=== PATIENT | male | born 1965 | race Caucasian/White ===

== ENCOUNTER → 2019-10-27 14:13 | Outpatient (BNVA) | payer OTHER, SELFPAY | PROVIDERS: Family Provider Family Medicine; PCP Family Medicine; Visit Provider Specialist | DX: F98.8 Other specified behavioral and emotional disorders with onset usually occurring in childhood and adolescence (principal); I10 Essential (primary) hypertension; Z86.73 Personal history of transient ischemic attack (TIA), and cerebral infarction without residual deficits | CPT/HCPCS: 99213 ==

== ENCOUNTER → 2020-01-26 11:24 | Outpatient (BNVA) | payer OTHER, SELFPAY | PROVIDERS: Family Provider Family Medicine; PCP Family Medicine; Visit Provider Specialist | DX: I63.9 Cerebral infarction, unspecified (principal); F98.8 Other specified behavioral and emotional disorders with onset usually occurring in childhood and adolescence; G45.0 Vertebro-basilar artery syndrome | CPT/HCPCS: 99214 ==

== ENCOUNTER → 2020-04-26 15:24 | Outpatient (BNVA) | payer OTHER, SELFPAY | PROVIDERS: Family Provider Family Medicine; PCP Family Medicine; Visit Provider Specialist | DX: G45.0 Vertebro-basilar artery syndrome (principal); I63.9 Cerebral infarction, unspecified; F98.8 Other specified behavioral and emotional disorders with onset usually occurring in childhood and adolescence | CPT/HCPCS: 99214 ==

== ENCOUNTER 2020-05-03 08:19 | Outpatient (CLI) | payer OTHER, SELFPAY ==
--- NOTE | 2020-05-03 08:30 | CT_ITS ---
WS: [id number] CTA HEAD AND NECK TECHNIQUE: Contrast enhanced CTA of the head and neck with coronal and sagittal reformatted images an d maximum intensity projection (MIP) images. NASCET criteria utilized. CLINICAL INFORMATION: CVA COMPARISON: None. DLP: 2333.[address] scans at [facility] use at least one of these dose optimization techniques: automat ed exposure control; mA and/or kV adjustment per patient size (includes targeted exams where dose is matched to clinical indication); or iterative reconstruction. FINDINGS: RIGHT: Right common carotid artery is patent. Mild stenosis right proximal ICA with moderate atheroma tous disease. Stenosis measures approximately 30%. Right ICA is patent to the skull base. LEFT: Left common carotid artery is patent. No significant left ICA stenosis. Left ICA is patent to t he skull base. INTRACRANIAL CTA: Left dominant vertebral artery. Tiny hypoplastic right vertebral artery is occluded proximally. This reconstitutes in the mid and distal aspect with a tiny amount of flow. Basilar artery is patent. Norm al vascularity to the CONTRACT MANAGER territory bilaterally. Patent right posterior communicating artery. Both ICAs are patent at the skull base. Normal vascularity to the RADHA and MCA territories bilaterally . No evidence of high-grade proximal stenosis or aneurysm. Patent anterior communicating artery. No evidence of intracranial hemorrhage or mass effect. Mild small vessel changes. Mild parenchymal vo lume loss. Chronic infarcts in the right cerebellum. A few prominent cervical chain lymph nodes likel y reactive. Prominent 11 mm paratracheal lymph node in the mediastinum. A few hazy opacities in the lung apices. Findings can be further evaluated chest CT. CT/CT angio headneck* [id number]/95534 IMPRESSION: 1. Stenosis right proximal ICA measuring 30%. No significant left ICA stenosis .. Both ICAs are patent to the skull base. 2. Left dominant vertebral artery. Tiny hypoplastic right vertebral artery is occluded proximally with a small amount of flow in the mid and distal aspects. 3. Normal intracranial CTA. No evidence of flow-limiting stenosis or aneurysm. 4. Chronic infarcts right cerebellum. 5. Prominent 11 mm paratracheal lymph node in the mediastinum. A few hazy opac ities in the lung apices. Findings can be further evaluated chest CT.
[2020-05-03] MEDS: iohexol 350 mg/mL 100 mL Btl IV (09:05)
== END 2020-05-03 08:20 | disposition home or self-care (01) ==
LOC: RADWPI 08:23
PROVIDERS: Family Provider Family Medicine; PCP Family Medicine; Visit Provider Specialist
DX: I63.9 Cerebral infarction, unspecified (principal)
CPT/HCPCS: 70496; 70498; Q9967

== ENCOUNTER → 2020-10-20 19:30 | Outpatient (BNVA) | payer OTHER, SELFPAY | PROVIDERS: Family Provider Family Medicine; PCP Family Medicine; Visit Provider Nurse Practitioner | DX: M79.10 Myalgia, unspecified site (principal); W57.XXXA Bitten or stung by nonvenomous insect and other nonvenomous arthropods, initial encounter; M79.601 Pain in right arm; Z68.31 Body mass index [BMI] 31.0-31.9, adult | CPT/HCPCS: 86618; 86666; 86757 ==

== ENCOUNTER → 2020-10-25 10:38 | Outpatient (BNVA) | payer OTHER, SELFPAY | PROVIDERS: Family Provider Family Medicine; PCP Family Medicine; Visit Provider Specialist | DX: G45.0 Vertebro-basilar artery syndrome (principal); F98.8 Other specified behavioral and emotional disorders with onset usually occurring in childhood and adolescence | CPT/HCPCS: 99214 ==

== ENCOUNTER → 2021-01-23 11:17 | Outpatient (BNVA) | payer OTHER, SELFPAY | PROVIDERS: Family Provider Family Medicine; PCP Family Medicine; Visit Provider Specialist | DX: F98.8 Other specified behavioral and emotional disorders with onset usually occurring in childhood and adolescence (principal); I69.398 Other sequelae of cerebral infarction | CPT/HCPCS: 99214 ==

== ENCOUNTER 2021-03-06 15:36 | Outpatient (CLI) | payer OTHER, SELFPAY ==
--- NOTE | 2021-03-07 06:44 | ONC FU_ITS ---
Dr. Souza Patient Follow-Up Note Patient: Ernie Plasencia Unit #: [id number]: 1965 Dicatated By: Mateusz Souza M.D.Date of Visit:Mar 06, 2021 Onc Med Follow-up/Prog Note Chief Complaint: Anemia. 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 His history is very interesting in that he had a lifelong history of anemia with hemoglobin previously stable in the range of 9-10 g. He always had some degree of fatigue with this, and he described feeling as if he was always running on a half a tank. He also reported having some difficulty with concentration, and he complained that his muscles were tight and always felt tired. Nonetheless, he had been able to function well with his hemoglobin in that range. 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 He had undergone evaluation for the anemia when he was in the [employer]. They did not establish a specific diagnosis. He was admitted to [facility] [place] in July 2013 when his hemoglobin had dropped to 5.5 g with white blood cell count 4800 and platelet count 144,000. The red cell indices were macrocytic. The uncorrected reticulocyte count was 12.7%. The haptoglobin was less than 7.8 mg/dL and the LDH was significantly elevated at 2594/241 units per liter. The total bilirubin was elevated at 4.1 mg/dL. The direct antibody test was negative. B12 and folate levels were normal. Ferritin was normal at 67 ng/mL. He was transfused a total of 4 units of packed blood cells. His hemoglobin within 2 days had increased to 9.1 g/dL, and it then remained stable with no further intervention. His subsequent evaluation included a normal G6PD level at 16.3 units per gram hemoglobin and a normal osmotic fragility test. The pyruvate kinase level, though, was low at less than 2.0 units per gram hemoglobin, normal range 9.0-22.0. With the presumptive diagnosis of pyruvate kinase deficiency I had him continue folate supplementation. He remained stable until January 2014 when his hemoglobin abruptly dropped back down to 5.7 g, and he then became transfusion dependent. He had a second opinion evaluation at [facility], and he underwent bone marrow aspiration/biopsy on 01/17/2014. The marrow showed 100% cellularity with erythroid hyperplasia. There was mild red blood cell dyspoiesis. Iron stores were noted to be absent. There were no other significant abnormalities noted. The chromosome studies were normal. He was then evaluated at the [facility], and they did recommend splenectomy, which was done laparoscopically in July 2014. His blood counts subsequently improved, and he then remained transfusion independent. His medical history is otherwise significant for a hospitalization with suspected brainstem stroke in November 2012. At that time he was found to have type 2 diabetes and hyperlipidemia. He has obstructive sleep apnea, and he also has a history of gout. I had last seen him in November 2014. At that point he was having left knee pain and he ultimately required an open surgical procedure on the left knee. 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 He is a non-smoker. I asked him to return for a follow-up visit because there is new medication in development for PK deficiency, and it is currently under review at the FDA. He has been feeling pretty good generally. He has good tolerance for normal activities, but he really does not do anything strenuous now. His ECOG score is 0. He has good appetite. He has no fever or night sweats. He does have heat intolerance, which includes weakness/fatigue, lightheadedness, and blurry vision when exposed to hot temperatures. He has very occasional sore throat. He does not complain of cough. He is not short of breath with normal activities. He does not complain of chest pain. He has no GI or complaints. He currently is not having any significant joint or bone pain. He is taking allopurinol prophylactically for his gout. He does not complain of headache. He sometimes has dizziness. He occasionally has some numbness in his fingers. He still has some numbness on the entire left side of his body following the stroke in 2012. Medications: Allopurinol (300 mg) Tablet Oral b.i.d., Invokana 1 (300 mg) Tablet Oral daily, Losartan Potassium (50 mg) Tablet Oral daily, Ozempic (0.25 or 0.5 MG/DOSE) Subcutaneous Allergies: No Known Allergies. Vital Signs: Performed on Mar 06, 2021 16:25 Height - 71.00 in Weight - 247 lbs (LOW) BSA - 2.31 sq.m BMI - 34.45 (HIGH) Temperature - 98.6 F Pulse - 98 /min Respiration - 18 /min BP - 136/84 mm(hg) O2 Sat - 100 % Pain - 0 Fatigue - 7 Physical Examination: Constitutional - He looks pretty good generally, Eyes - Sclerae nonicteric. Conjunctivae clear, ENMT - No lesions noted in the oral cavity, Hematologic/Lymphatic - No cervical, clavicular, or axillary adenopathy, Respiratory - Lungs are clear with good air movement bilaterally, Cardiovascular - Heart rhythm is regular. There is no murmur, gallop, or rub noted, Abdomen - Soft. Liver is not enlarged. There is no abdominal mass or ascites noted and there is no inguinal adenopathy, Extremities - No edema, Neurologic - No focal neurologic deficits noted. Lab/Imaging: His laboratory studies from 03/01/2021 included CBC showing hemoglobin 10.0 g with hematocrit 31.6 %. The red cell indices were macrocytic with MCV 107.1 and MCH 33.9. The white blood cell count was 15,900 and the platelet count was 462,000. Comprehensive metabolic profile showed normal renal function with BUN 22 and creatinine 1.07 mg/dL. His total bilirubin was borderline high at 1.2 mg/dL. The alkaline phosphatase and the other liver enzymes were normal. His hemoglobin A1c level was 7.7%. Problem List: 1. 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 He has not had genetic testing. 2. 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 3. Hyperlipidemia. 4. Type 2 diabetes. 5. Gout. 6. He has a history of brainstem stroke in 2012. 7. 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 Problems Addressed with this Encounter and Plan: Patient with pyruvate kinase deficiency. He had lifelong nonimmune hemolytic anemia, ultimtatey determined to be due to pyruvate kinase deficiency based on a low pyruvate kinase level at less than 2.0 units per gram hemoglobin, normal range 9.0-22.0. He did not have genetic testing. He had become transfusion dependent in July 2013, and he underwent laparoscopic splenectomy in July 2014. He has been stable clinically since the splenectomy, maintaining hemoglobin in the range of 10 to 12 g. He has good tolerance for normal activities. Through his own research he has been aware of the medication which has been under development for PK deficiency (mitapivat). It currently is under review at the FDA. I am going to do some preliminary investigation regarding his eligibility for treatment and potential availability of the medication, even in the context of a clinical trial. In the meantime, he is reminded to continue his folate supplementation. I did recommend that he avoid any extra iron supplementation. Signed By: Mateusz Souza M.D. <<Signature on File>>
== END 2021-03-06 15:37 | disposition home or self-care (01) ==
LOC: ONCMED 15:42
PROVIDERS: PCP Family Medicine; Visit Provider Internal Medicine Medical Oncology
DX: D55.2 Anemia due to disorders of glycolytic enzymes (principal); E78.5 Hyperlipidemia, unspecified; E11.9 Type 2 diabetes mellitus without complications; M10.9 Gout, unspecified; Z86.73 Personal history of transient ischemic attack (TIA), and cerebral infarction without residual deficits; Z96.642 Presence of left artificial hip joint; Z79.899 Other long term (current) drug therapy
CPT/HCPCS: 99214

== ENCOUNTER 2021-07-04 15:18 | Outpatient (CLI) | payer OTHER, SELFPAY | END 2021-07-04 15:19 | disposition home or self-care (01) | LOC: ONCMED 15:21 | PROVIDERS: PCP Family Medicine; Visit Provider Internal Medicine Medical Oncology | DX: E74.4 Disorders of pyruvate metabolism and gluconeogenesis (principal); E78.5 Hyperlipidemia, unspecified; E11.9 Type 2 diabetes mellitus without complications; M10.9 Gout, unspecified; Z86.73 Personal history of transient ischemic attack (TIA), and cerebral infarction without residual deficits; Z96.642 Presence of left artificial hip joint; Z90.81 Acquired absence of spleen; Z79.899 Other long term (current) drug therapy | CPT/HCPCS: 99211 ==

== ENCOUNTER → 2021-10-16 16:19 | Outpatient (BNVA) | payer OTHER, SELFPAY | PROVIDERS: PCP Family Medicine; Visit Provider Internal Medicine | DX: N52.1 Erectile dysfunction due to diseases classified elsewhere (principal); D55.21 Anemia due to pyruvate kinase deficiency; E11.9 Type 2 diabetes mellitus without complications | CPT/HCPCS: 80053; 83001; 83002; 84146; 84403; 85025; G0103 ==

== ENCOUNTER 2022-01-01 14:00 | Oncology outpatient (recurring) (ONCR) | payer OTHER, SELFPAY ==
[2021-12-18 16:01] LABS: Basophils # 0.1 10^3/uL (0.0-0.1); Basophils % 0.7 %; Eosinophils # 0.4 10^3/uL (0.0-0.8); Eosinophils % 2.2 %; Hematocrit 32.4 % (42.0-52.0); Hemoglobin 10.2 g/dL (11.7-16.6); Lymphocytes # 3.3 10^3/uL (0.8-4.8); Lymphocytes % 19.2 %; Mean Corpuscular HGB Conc 31.5 g/dL (30.0-36.0); Mean Corpuscular Hemoglobin 34.3 pg (28.0-34.0); Mean Corpuscular Volume 109.1 fl (80-94); Mean Platelet Volume 12.7 fL (7.4-10.4); Monocytes # 2.1 10^3/uL (0.2-0.9); Monocytes % 12.4 %; Neutrophils # 10.99 10^3/uL (1.8-7.7); Nucleated Red Blood Cells # 0.2 /100WBC; Nucleated Red Blood Cells % 1.2 %; Platelet Count 456 10^3/cmm (130-400); Red Blood Count 2.97 10^6/uL (4.1-5.3); White Blood Count 17.2 10^3/uL (4.0-10.0)
[2021-12-18 18:24] LABS: Alanine Aminotransferase 25 U/L (0-41); Albumin Level 4.4 g/dL (3.5-5.2); Alkaline Phosphatase 99 IU/L (40-130); Anion Gap 16.8 (5-19); Aspartate Amino Transferase 21 U/L (0-40); Blood Urea Nitrogen 36 mg/dL (6-20); Calcium 10.1 mg/dL (8.5-10.5); Carbon Dioxide 26 mmol/L (22-29); Chloride 99 mmol/L (98-107); Globulin 3.1 g/dL (1.3-4.6); Glomerular Filtration Rate 45.3 mL/min (90-130); Glucose 244 mg/dL (65-115); Osmolality Calculated 300 mOsm/kg (285-295); Potassium 4.8 mmol/L (3.5-5.1); Sodium 137 mmol/L (136-145); Total Bilirubin 1.2 mg/dL (0.15-1.2); Total Protein 7.5 g/dL (6.6-8.7)
== END 2022-01-01 23:59 | disposition home or self-care (01) ==
PROVIDERS: PCP Family Medicine; Visit Provider Nurse Practitioner Family
DX: Z53.9 Procedure and treatment not carried out, unspecified reason (principal)
CPT/HCPCS: 80053; 84153; 85025

== ENCOUNTER 2022-01-15 11:30 | Oncology outpatient (recurring) (ONCR) | payer OTHER, SELFPAY ==
[2022-01-02 10:25] LABS: Basophils # 0.1 10^3/uL (0.0-0.1); Basophils % 0.8 %; Eosinophils # 0.4 10^3/uL (0.0-0.8); Eosinophils % 2.7 %; Hematocrit 31.9 % (42.0-52.0); Hemoglobin 10.1 g/dL (11.7-16.6); Lymphocytes # 4.1 10^3/uL (0.8-4.8); Lymphocytes % 28.7 %; Mean Corpuscular HGB Conc 31.7 g/dL (30.0-36.0); Mean Corpuscular Hemoglobin 34.5 pg (28.0-34.0); Mean Corpuscular Volume 108.9 fl (80-94); Mean Platelet Volume 11.7 fL (7.4-10.4); Monocytes # 1.6 10^3/uL (0.2-0.9); Monocytes % 11.4 %; Neutrophils # 7.83 10^3/uL (1.8-7.7); Neutrophils % 54.9 %; Nucleated Red Blood Cells # 0.3 /100WBC; Nucleated Red Blood Cells % 1.9 %; Platelet Count 340 10^3/cmm (130-400); Red Blood Count 2.93 10^6/uL (4.1-5.3); Red Cell Distribution Width 15.6 % (12.1-15.1); White Blood Count 14.3 10^3/uL (4.0-10.0)
[2022-01-02 10:47] LABS: Alanine Aminotransferase 33 U/L (0-41); Albumin Level 4.4 g/dL (3.5-5.2); Alkaline Phosphatase 103 IU/L (40-130); Anion Gap 16.6 (5-19); Aspartate Amino Transferase 23 U/L (0-40); Blood Urea Nitrogen 31 mg/dL (6-20); Calcium 9.6 mg/dL (8.5-10.5); Carbon Dioxide 21 mmol/L (22-29); Chloride 102 mmol/L (98-107); Glomerular Filtration Rate 52.8 mL/min (90-130); Glucose 271 mg/dL (65-115); Osmolality Calculated 296 mOsm/kg (285-295); Potassium 4.6 mmol/L (3.5-5.1); Sodium 135 mmol/L (136-145); Total Bilirubin 1.2 mg/dL (0.15-1.2); Total Protein 7.4 g/dL (6.6-8.7)
[2022-01-02 10:54] LABS: Slide Review Slide Review Perform
[2022-01-15 11:58] LABS: Basophils # 0.1 10^3/uL (0.0-0.1); Basophils % 0.8 %; Eosinophils # 0.3 10^3/uL (0.0-0.8); Eosinophils % 1.8 %; Hemoglobin 11.2 g/dL (11.7-16.6); Lymphocytes # 3.2 10^3/uL (0.8-4.8); Lymphocytes % 21.5 %; Mean Corpuscular HGB Conc 32.9 g/dL (30.0-36.0); Mean Corpuscular Hemoglobin 34.7 pg (28.0-34.0); Mean Corpuscular Volume 105.3 fl (80-94); Mean Platelet Volume 11.9 fL (7.4-10.4); Monocytes # 1.7 10^3/uL (0.2-0.9); Monocytes % 11.4 %; Neutrophils # 9.52 10^3/uL (1.8-7.7); Neutrophils % 63.3 %; Nucleated Red Blood Cells # 0.3 /100WBC; Platelet Count 501 10^3/cmm (130-400); Red Blood Count 3.23 10^6/uL (4.1-5.3); Red Cell Distribution Width 15.5 % (12.1-15.1)
== END 2022-01-31 23:59 | disposition home or self-care (01) ==
PROVIDERS: PCP Family Medicine; Visit Provider Nurse Practitioner Family
DX: D55.21 Anemia due to pyruvate kinase deficiency (principal)
CPT/HCPCS: 36415; 80053; 85025; 99214

== ENCOUNTER 2022-02-21 16:01 | Oncology outpatient (recurring) (ONCR) | payer OTHER, SELFPAY ==
[2022-02-14 13:04] LABS: Basophils # 0.1 10^3/uL (0.0-0.1); Basophils % 0.8 %; Eosinophils # 0.2 10^3/uL (0.0-0.8); Eosinophils % 1.7 %; Hematocrit 33.6 % (42.0-52.0); Hemoglobin 10.4 g/dL (11.7-16.6); Lymphocytes % 21.6 %; Mean Corpuscular Hemoglobin 34.3 pg (28.0-34.0); Mean Corpuscular Volume 110.9 fl (80-94); Mean Platelet Volume 12.5 fL (7.4-10.4); Monocytes # 1.7 10^3/uL (0.2-0.9); Monocytes % 12.6 %; Neutrophils # 8.52 10^3/uL (1.8-7.7); Neutrophils % 61.8 %; Nucleated Red Blood Cells # 0.3 /100WBC; Nucleated Red Blood Cells % 2.2 %; Platelet Count 361 10^3/cmm (130-400); Red Blood Count 3.03 10^6/uL (4.1-5.3); White Blood Count 13.8 10^3/uL (4.0-10.0)
[2022-02-14 13:05] LABS: Reticulocyte % 23.7 % (0.5-2.0)
[2022-02-14 13:31] LABS: Alanine Aminotransferase 41 U/L (0-41); Albumin Level 4.3 g/dL (3.5-5.2); Alkaline Phosphatase 99 IU/L (40-130); Aspartate Amino Transferase 18 U/L (0-40); Blood Urea Nitrogen 33 mg/dL (6-20); Calcium 9.5 mg/dL (8.5-10.5); Carbon Dioxide 24 mmol/L (22-29); Chloride 96 mmol/L (98-107); Globulin 2.7 g/dL (1.3-4.6); Glomerular Filtration Rate 45.3 mL/min (90-130); Glucose 434 mg/dL (65-115); Lactate Dehydrogenase 176 U/L (135-225); Osmolality Calculated 300 mOsm/kg (285-295); Sodium 132 mmol/L (136-145); Total Bilirubin 1.1 mg/dL (0.15-1.2)
== END 2022-03-03 23:59 | disposition home or self-care (01) ==
PROVIDERS: Internal Medicine Medical Oncology; PCP Family Medicine; Visit Provider Nurse Practitioner Family
DX: D55.21 Anemia due to pyruvate kinase deficiency (principal)
CPT/HCPCS: 36415; 80053; 83615; 85025; 85045

== ENCOUNTER 2022-03-20 11:30 | Oncology outpatient (recurring) (ONCR) | payer OTHER, SELFPAY ==
[2022-03-07 15:10] LABS: Basophils # 0.1 10^3/uL (0.0-0.1); Basophils % 0.7 %; Eosinophils # 0.2 10^3/uL (0.0-0.8); Eosinophils % 1.6 %; Hematocrit 34.4 % (42.0-52.0); Lymphocytes % 24.9 %; Mean Corpuscular Hemoglobin 34.5 pg (28.0-34.0); Mean Corpuscular Volume 107.8 fl (80-94); Mean Platelet Volume 12.2 fL (7.4-10.4); Monocytes # 1.7 10^3/uL (0.2-0.9); Monocytes % 13.8 %; Neutrophils % 57.8 %; Nucleated Red Blood Cells # 0.2 /100WBC; Nucleated Red Blood Cells % 1.8 %; Platelet Count 369 10^3/cmm (130-400); Red Blood Count 3.19 10^6/uL (4.1-5.3); Red Cell Distribution Width 14.6 % (12.1-15.1); White Blood Count 12.1 10^3/uL (4.0-10.0)
[2022-03-07 15:29] LABS: Slide Review Slide Review Perform
== END 2022-04-03 23:59 | disposition home or self-care (01) ==
PROVIDERS: Internal Medicine Medical Oncology; PCP Family Medicine; Visit Provider Nurse Practitioner Family
DX: D55.21 Anemia due to pyruvate kinase deficiency (principal)
CPT/HCPCS: 85025

== ENCOUNTER 2022-04-18 09:52 | Oncology outpatient (recurring) (ONCR) | payer OTHER, SELFPAY ==
[2022-04-12 10:18] LABS: Basophils # 0.1 10^3/uL (0.0-0.1); Basophils % 0.8 %; Eosinophils # 0.2 10^3/uL (0.0-0.8); Eosinophils % 1.4 %; Hematocrit 33.4 % (42.0-52.0); Hemoglobin 10.5 g/dL (11.7-16.6); Lymphocytes # 2.1 10^3/uL (0.8-4.8); Lymphocytes % 14.9 %; Mean Corpuscular HGB Conc 31.4 g/dL (30.0-36.0); Mean Corpuscular Hemoglobin 34.9 pg (28.0-34.0); Mean Platelet Volume 11.4 fL (7.4-10.4); Monocytes # 1.8 10^3/uL (0.2-0.9); Monocytes % 12.8 %; Neutrophils # 9.62 10^3/uL (1.8-7.7); Neutrophils % 69.2 %; Nucleated Red Blood Cells # 0.1 /100WBC; Nucleated Red Blood Cells % 0.9 %; Platelet Count 378 10^3/cmm (130-400); Red Blood Count 3.01 10^6/uL (4.1-5.3); Red Cell Distribution Width 14.8 % (12.1-15.1); White Blood Count 13.9 10^3/uL (4.0-10.0)
[2022-04-18 10:32] LABS: Basophils # 0.1 10^3/uL (0.0-0.1); Basophils % 0.8 %; Eosinophils # 0.2 10^3/uL (0.0-0.8); Eosinophils % 1.6 %; Hematocrit 32.1 % (42.0-52.0); Hemoglobin 10.2 g/dL (11.7-16.6); Lymphocytes # 2.8 10^3/uL (0.8-4.8); Lymphocytes % 21.4 %; Mean Corpuscular HGB Conc 31.8 g/dL (30.0-36.0); Mean Corpuscular Hemoglobin 34.3 pg (28.0-34.0); Mean Corpuscular Volume 108.1 fl (80-94); Mean Platelet Volume 11.5 fL (7.4-10.4); Monocytes # 1.7 10^3/uL (0.2-0.9); Neutrophils # 8.02 10^3/uL (1.8-7.7); Neutrophils % 62.3 %; Nucleated Red Blood Cells # 0.1 /100WBC; Nucleated Red Blood Cells % 0.9 %; Platelet Count 398 10^3/cmm (130-400); Red Blood Count 2.97 10^6/uL (4.1-5.3); Red Cell Distribution Width 14.3 % (12.1-15.1); White Blood Count 12.9 10^3/uL (4.0-10.0)
== END 2022-05-03 23:59 | disposition home or self-care (01) ==
PROVIDERS: PCP Family Medicine; Visit Provider Internal Medicine Medical Oncology
DX: D55.21 Anemia due to pyruvate kinase deficiency (principal)
CPT/HCPCS: 36415; 85025

== ENCOUNTER 2022-05-17 10:16 | Oncology outpatient (recurring) (ONCR) | payer OTHER, SELFPAY ==
[2022-05-17 10:45] LABS: Basophils # 0.1 10^3/uL (0.0-0.1); Basophils % 0.9 %; Eosinophils # 0.3 10^3/uL (0.0-0.8); Hematocrit 35.4 % (42.0-52.0); Hemoglobin 11.2 g/dL (11.7-16.6); Lymphocytes # 3.2 10^3/uL (0.8-4.8); Lymphocytes % 25.3 %; Mean Corpuscular HGB Conc 31.6 g/dL (30.0-36.0); Mean Corpuscular Hemoglobin 35.6 pg (28.0-34.0); Mean Corpuscular Volume 112.4 fl (80-94); Mean Platelet Volume 11.7 fL (7.4-10.4); Monocytes # 1.5 10^3/uL (0.2-0.9); Monocytes % 11.9 %; Neutrophils # 7.46 10^3/uL (1.8-7.7); Neutrophils % 58.5 %; Nucleated Red Blood Cells # 0.4 /100WBC; Nucleated Red Blood Cells % 3.4 %; Platelet Count 390 10^3/cmm (130-400); Red Blood Count 3.15 10^6/uL (4.1-5.3); Red Cell Distribution Width 15.2 % (12.1-15.1); White Blood Count 12.8 10^3/uL (4.0-10.0)
== END 2022-06-03 23:59 | disposition home or self-care (01) ==
PROVIDERS: PCP Family Medicine; Visit Provider Internal Medicine Medical Oncology
DX: D55.1 Anemia due to other disorders of glutathione metabolism (principal)
CPT/HCPCS: 36415; 85025

== ENCOUNTER 2022-06-24 15:30 | Oncology outpatient (recurring) (ONCR) | payer OTHER, SELFPAY ==
[2022-06-07 12:23] LABS: Basophils # 0.1 10^3/uL (0.0-0.1); Eosinophils # 0.2 10^3/uL (0.0-0.8); Eosinophils % 1.7 %; Hematocrit 32.5 % (42.0-52.0); Hemoglobin 10.5 g/dL (11.7-16.6); Lymphocytes % 22.1 %; Mean Corpuscular HGB Conc 32.3 g/dL (30.0-36.0); Mean Corpuscular Hemoglobin 34.8 pg (28.0-34.0); Mean Corpuscular Volume 107.6 fl (80-94); Mean Platelet Volume 11.6 fL (7.4-10.4); Monocytes # 1.3 10^3/uL (0.2-0.9); Monocytes % 9.5 %; Neutrophils # 8.62 10^3/uL (1.8-7.7); Neutrophils % 64.3 %; Nucleated Red Blood Cells # 0.1 /100WBC; Nucleated Red Blood Cells % 0.5 %; Platelet Count 430 10^3/cmm (130-400); Red Blood Count 3.02 10^6/uL (4.1-5.3); Red Cell Distribution Width 13.8 % (12.1-15.1); White Blood Count 13.4 10^3/uL (4.0-10.0)
[2022-06-07 12:31] LABS: Alanine Aminotransferase 36 U/L (0-41); Alkaline Phosphatase 93 U/L (40-130); Anion Gap 15.7 (5-19); Aspartate Amino Transferase 20 U/L (0-40); Blood Urea Nitrogen 31 mg/dL (6-20); Calcium 9.6 mg/dL (8.5-10.5); Carbon Dioxide 23 mmol/L (22-29); Chloride 102 mmol/L (98-107); Globulin 2.8 g/dL (1.3-4.6); Glomerular Filtration Rate 57.5 mL/min (90-130); Glucose 327 mg/dL (65-115); Osmolality Calculated 301 mOsm/kg (285-295); Potassium 4.7 mmol/L (3.5-5.1); Sodium 136 mmol/L (136-145); Total Bilirubin 0.9 mg/dL (0.15-1.2); Total Protein 6.8 g/dL (6.6-8.7)
[2022-06-07 12:44] LABS: Iron 73 ug/dL (59-158); Percent Saturation 27.2 % (20-50); Total Iron Binding Capacity 268 mcg/dl; Unsaturated Iron Binding 195 ug/dL (112-347)
[2022-06-07 12:57] LABS: Ferritin 1264 ng/mL (30-400)
[2022-06-24 15:44] LABS: Basophils # 0.1 10^3/uL (0.0-0.1); Basophils % 0.8 %; Eosinophils # 0.2 10^3/uL (0.0-0.8); Eosinophils % 1.3 %; Hematocrit 32.4 % (42.0-52.0); Hemoglobin 10.7 g/dL (11.7-16.6); Lymphocytes # 3.4 10^3/uL (0.8-4.8); Lymphocytes % 19.9 %; Mean Corpuscular Hemoglobin 34.5 pg (28.0-34.0); Mean Corpuscular Volume 104.5 fl (80-94); Mean Platelet Volume 11.5 fL (7.4-10.4); Monocytes # 1.9 10^3/uL (0.2-0.9); Monocytes % 11.3 %; Neutrophils # 11.14 10^3/uL (1.8-7.7); Neutrophils % 65.2 %; Nucleated Red Blood Cells % 0.2 %; Platelet Count 408 10^3/cmm (130-400); Red Cell Distribution Width 13.2 % (12.1-15.1); White Blood Count 17.1 10^3/uL (4.0-10.0)
== END 2022-07-03 23:59 | disposition home or self-care (01) ==
PROVIDERS: PCP Family Medicine; Visit Provider Internal Medicine Medical Oncology
DX: D55.21 Anemia due to pyruvate kinase deficiency (principal)
CPT/HCPCS: 36415; 80053; 82728; 83540; 83550; 85025

== ENCOUNTER 2022-12-09 08:52 | Inpatient (IN) | payer OTHER, SELFPAY ==
[2022-12-09] VITALS (91 sets, daily range): BP systolic 123–243; BP diastolic 64–134; PULSE 4–111; RESP 5–28; TEMP 36.9; O2SAT 77–98
--- NOTE | 2022-12-09 08:52 | CT_ITS ---
WS: [id number] CTA HEAD AND NECK TECHNIQUE: Contrast enhanced CTA of the head and neck with coronal and sagittal reformatted images an d maximum intensity projection (MIP) images. NASCET criteria utilized. CLINICAL INFORMATION: TIA/CVA COMPARISON: May 03, 2020 DLP: [id number] scans at [facility] use at least one of these dose optimization techniques: automated e xposure control; mA and/or kV adjustment per patient size (includes targeted exams where dose is matc hed to clinical indication); or iterative reconstruction. FINDINGS: Chronic infarcts in the RIGHT cerebellum unchanged since 2013. Mastoid air cells and parana jami sinuses are well aerated. Normal posterior nasopharynx. Thyroid gland is normal. RIGHT: RIGHT common carotid artery is patent. Less than 50% RIGHT ICA stenosis. Moderate atheromatous plaque RIGHT carotid bulb extending into the ICA. This appears stable since 2019. LEFT: LEFT common carotid artery is patent. No significant LEFT ICA stenosis. Mild to moderate calcif ied atheromatous plaque. LEFT ICA is patent to the skull base. LEFT dominant vertebral artery. Tiny RIGHT vertebral artery with intermittent flow similar to previou s. INTRACRANIAL CTA: Distal LEFT vertebral artery is patent. Short segment High-grade stenosis in the distal basilar arter y appears new from previous. Persistent RIGHT DISULFURIZER TENDER. Normal vascularity to the DISULFURIZER TENDER territory bila terally. Both ICAs are patent at the skull base. Small RIGHT A1 segment. Normal vascularity to the RADHA and MCA territories bilaterally. No proximal flow limiting stenosis in the anterior circulation. CT/CT angio headneck* [id number] IMPRESSION: 1. Less than 50% ICA stenosis bilaterally. 2. Short segment high-grade stenosis in the distal basilar artery just proxima l to the basilar tip is new from previous. This may be due to a small amount of thrombus. Distal most basilar tip is patent. Persistent RIGHT DISULFURIZER TENDER with n ormal vascularity to the DISULFURIZER TENDER territory bilaterally. 3. Both ICAs are patent at the skull base. Normal vascularity to the RADHA and M CA territories bilaterally. 4. RIGHT dominant vertebral artery unchanged from previous Notified Olayinka Shoemaker DO at 12/09/2022 9:57 AM.
--- NOTE | 2022-12-09 08:53 | ECG_ITS ---
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 Measurements Intervals [place] Rate: 101 P: 76 GA: 168 QRS: 60 QRSD: 102 T: 72 QT: 336 QTc: 436 Interpretive Statements SINUS TACHYCARDIA LEFT VENTRICULAR HYPERTROPHY AND ST-T CHANGE [VOLTAGE CRITERIA PLUS ST/T ABNORMALITY] No previous ECG available for comparison Electronically Signed On 12-09-2022 17:08:40 CDT by Ricco Nguyen M.D. [email or web address]
--- NOTE | 2022-12-09 08:53 | CT_ITS ---
WS: [id number] CT HEAD TECHNIQUE: Noncontrast CT of the head obtained from the skullbase to the vertex. CLINICAL INFORMATION: SYMPTOMS OF ACUTE STROKE COMPARISON: None. DLP: 1131 mgy/cm All CT scans at [facility] use at least one of these dose optimization techniques: automated e xposure control; mA and/or kV adjustment per patient size (includes targeted exams where dose is matc hed to clinical indication); or iterative reconstruction. FINDINGS: No evidence of intracranial hemorrhage or mass effect. Ventricular system and basal cisterns are carrero nt. Mild small vessel changes with mild parenchymal volume loss. No extra-axial fluid collections. No evidence of mass or mass effect. Chronic infarcts in the RIGHT cerebellum. Vascular calcification. Paranasal sinuses and mastoid air cells are well aerated. .Normal visualized soft tissues. CT/CT head thrombolytic [id number] IMPRESSION: 1. No evidence of intracranial hemorrhage or mass effect. 2. Mild small vessel changes. Mild parenchymal volume loss. 3. Intracranial vascular calcification. 4. Chronic infarcts in the RIGHT cerebellum unchanged since MRI 2013 5. No acute intracranial findings. Notified Olayinka Shoemaker DO at 12/09/2022 9:01 AM.
--- NOTE | 2022-12-09 08:54 | W.ED.NEUROSD ---
HPI - Neuro Symptoms/Deficit General: Chief Complaint: Neuro Symptoms/Deficit Stated Complaint: STROKE ALERT Time Seen by Provider: 12/09/22 08:52 Source: patient Mode of arrival: ambulatory History of Present Illness: 57-year-old male presents to the emergency room via EMS as a stroke alert. Patient has a history of previous CVA this morning began having left-sided weakness EMS as they first arrived was nearly flaccid holding himself up on the edge of the vehicle that resolved after they had arrived. When patient first woke he had no reported deficits. Rapid assessment in the CT scanner when he initially arrives at most he may have some dysarthria the remainder of the testing is negative. He is denying any chest pain vision or speech or swallowing difficulties. Dr. Kingston is at the bedside as well. Onset (ago): minute(s) Location: speech Severity: mild Relieving factors: none Exacerbating factors: none Context: sudden onset Associated symptoms: Deny chest pain, cough, diaphoresis, fevers/chills, headache(s), anorexia, malaise, nausea, seizures, short of breath, syncope, tingling, vertigo, vomiting or weakness Treatments Prior to Arrival: none Review of Systems Const: Reports: fatigue; Denies: malaise or diaphoresis Eyes: Denies: change in vision or blurry vision ENMT: Denies: throat pain, ear or mastoid pain, nasal discharge or nasal congestion Card: Denies: chest pain, palpitations, irregular heart rhythm, edema or syncope Resp: Denies: dyspnea, productive cough or non-productive cough GI: Denies: abdominal pain, nausea or vomiting : Denies: flank pain, dysuria, urinary frequency or urinary urgency Skin/Breast: Denies: rash or pruritus Neuro: Denies: headache(s) or vertigo PFSH ED PFSH: Medical History Gout Hx of ischemic vertebrobasilar artery brainstem stroke (2012) Hyperlipidemia Hypertension Obstructive sleep apnea Pyruvate kinase (PK) deficiency anemia Type 2 diabetes mellitus Surgical History H/O knee surgery Left knee cap repair - [facility] [place] - Dr. 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 Daughter Anesthesia complication Mother Cancer Lung Other Diabetes Hyperlipidemia Hypertension Stroke Denies family history of CAD (coronary artery disease) Clotting disorder Dementia Psychiatric illness Chronic kidney disease (CKD) Suicide Bleeding disorder Lung disease Social History Smoking and tobacco status: never smoked Alcohol intake: never Substance/Drug Use: never service: Yes NIH stroke score NIHSS: Level Of Consciousness - 1a: 0 Level Of Consciousness Questions - 1b: Both Correct Level Of Consciousness Commands - 1c: Both Correct Best Gaze - 2: Normal Visual Potter - 3: No Visual Loss Facial Palsy - 4: Normal Motor Arm Right - 5: No Drift Motor Arm Left - 5: No Drift Motor Leg Right - 6: No Drift Motor Leg Left - 6: No Drift Limb Ataxia - 7: Absent Sensory - 8: Normal Best Language - 9: No Aphasia Dysarthia - 10: Mild/Moderate Dysarthia Extinction And Inattention - 11: 0 Score: Total Score: 1 Physical Exam Const: GENERAL APPEARANCE: cooperative and comfortable ORIENTATION/CONSCIOUSNESS: Yes awake, Yes oriented to person, Yes oriented to place and Yes oriented to time HENMT: COMMON NORMALS: normocephalic, atraumatic and hearing grossly normal bilaterally HEAD & SCALP: normocephalic and atraumatic Resp: COMMON NORMALS: normal respiratory effort, No retractions, No use of accessory muscles and clear to auscultation bilaterally AUSCULTATION: clear to auscultation bilaterally Cardio: COMMON NORMALS: regular rate, regular rhythm and No murmurs present (Cardio) RATE: regular rate RHYTHM: regular rhythm GI: COMMON NORMALS: Soft to palpation and No hepatosplenomegaly present AUSCULTATION: Yes normoactive bowel sounds PALPATION: Yes Soft to palpation, No Tenderness to palpation present (GI), No Guarding due to palpation present (GI) and Yes No hepatosplenomegaly present Extremity: COMMON NORMALS: normal to inspection, capillary refill normal, no clubbing, cyanosis or edema, no calf tenderness and no pedal edema Neuro: SENSORIUM/ORIENTATION: Yes oriented to person, Yes oriented to place and Yes oriented to time Skin: COMMON NORMALS: no rashes or lesions noted GENERAL SKIN EXAM: no rashes or lesions noted Course Vital Signs: Vital signs: Vital Signs Temperature 98.1 F 12/10/22 00:00 Pulse Rate 81 12/10/22 06:00 Respiratory Rate 0 L 12/10/22 06:00 Blood Pressure 154/72 12/10/22 06:00 Pulse Oximetry 92 12/10/22 06:00 Oxygen Delivery Me thod Room Air 12/09/22 18:30 Oxygen Flow Rate 2 12/09/22 15:00 MDM - Neuro Symptoms/Deficit Medical Decision Making Stroke alert called on this patient. Dr. Kingston was in the department and seen the patient upon his arrival. We both agreed that it best he had a stroke score of 0-1. Given his stroke score he was not a candidate for tPA. While he was in the department his symptoms wax and wane were suggestive of potential posterior stroke however there was no definitive symptoms he seemed to have some mild dysarthria we also noted a little bit of right lateral nystagmus. 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 Ernst felt it was not amenable to any kind of embolectomy and there was no evidence of complete occlusion at this time. We did contact on-call doctor at [facility] who stated that they would not intervene with any attempted embolectomy for this lesion and he recommended heparinization. Discussed with Dr. Kingston and Dr. Conley again who will admit the patient. Patient has been started on heparin. Medical Records I reviewed the patient's medical records. Lab Data I reviewed the patient's lab results. 12/10/22 00:29 12/10/22 00:29 Radiology Impressions Head/Neck CTA 12/09/22 08:52 IMPRESSION: 1. Less than 50% ICA stenosis bilaterally. 2. Short segment high-grade stenosis in the distal basilar artery just proximal to the basilar tip is new from previous. This may be due to a small amount of thrombus. Distal most basilar tip is patent. Persistent RIGHT SKILLED [employer]IES PROFESSIONAL with normal vascularity to the SKILLED NURSING [employer]ACILITIES PROFESSIONAL territory bilaterally. 3. Both ICAs are patent at the skull base. Normal vascularity to the RADHA and MCA territories bilaterally. 4. RIGHT dominant vertebral artery unchanged from previous Notified Olayinka Shoemaker DO at 12/09/2022 9:[address] 12/09/22 08:53 IMPRESSION: 1. No evidence of intracranial hemorrhage or mass effect. 2. Mild small vessel changes. Mild parenchymal volume loss. 3. Intracranial vascular calcification. 4. Chronic infarcts in the RIGHT cerebellum unchanged since MRI 2013 5. No acute intracranial findings. Notified Olayinka Shoemaker DO at 12/09/2022 9:01 AM. Head MRI 12/09/22 14:53 IMPRESSION: There is a solitary axial image concerning for a 3 mm acute infarct in the right cerebellum on only 1 series, however, this is suspected to be artifact as described above. No additional acute abnormality. ADDENDUM: 12/09/22 1828 THIS REPORT CONTAINS FINDINGS THAT MAY BE CRITICAL TO PATIENT CARE. The findings were verbally communicated via telephone conference with BRANDI BECERRIL at 6:19 PM CDT on 12/09/2022. The findings were acknowledged and understood. Laboratory Results WBC 16.7 10^3/uL (4.0-10.0) H 12/09/22 09:30 RBC 2.75 10^6/uL (4.1-5.3) L 12/09/22 09:30 Hgb 9.2 g/dL (11.7-16.6) L 12/09/22 09:30 Hct 29.7 % (42.0-52.0) L 12/09/22 09:30 MCV 108.0 fl (80-94) H 12/09/22 09:30 MCH 33.5 pg (28.0-34.0) 12/09/22 09:30 MCHC 31.0 g/dL (30.0-36.0) 12/09/22 09:30 RDW 13.9 % (12.1-15.1) 12/09/22 09:30 Plt Count 402 10^3/cmm (130-400) H 12/09/22 09:30 MPV 12.1 fL (7.4-10.4) H 12/09/22 09:30 Neut % (Auto) 57.7 % 12/09/22 09:30 Lymph % (Auto) 24.8 % 12/09/22 09:30 Quay % (Auto) 13.3 % 12/09/22 09:30 Eos % (Auto) 1.4 % 12/09/22 09:30 Baso % (Auto) 0.8 % 12/09/22 09:30 Neut # (Auto) 9.62 10^3/uL (1.8-7.7) H 12/09/22 09:30 Lymph # (Auto) 4.2 10^3/uL (0.8-4.8) 12/09/22 09:30 Quay # (Auto) 2.2 10^3/uL (0.2-0.9) H 12/09/22 09:30 Eos # (Auto) 0.2 10^3/uL (0.0-0.8) 12/09/22 09:30 Baso # (Auto) 0.1 10^3/uL (0.0-0.1) 12/09/22 09:30 Nucleated RBC % (auto) 0.7 % 12/09/22 09:30 Nucleated RBCs # 0.1 /100WBC 12/09/22 09:30 PT 12.40 SECONDS (12.1-14.9) 12/09/22 09:30 INR 0.90 (0.8-1.2) 12/09/22 09:30 APTT 23.7 SECONDS (23.9-36.7) L 12/09/22 09:30 Sodium 131 mmol/L (136-145) L 12/09/22 09:30 Potassium 4.2 mmol/L (3.5-5.1) 12/09/22 09:30 Chloride 97 mmol/L (98-107) L 12/09/22 09:30 Carbon Dioxide 23 mmol/L (22-29) 12/09/22 09:30 Anion Gap 15.2 (5-19) 12/09/22 09:30 BUN 28 mg/dL (6-20) H 12/09/22 09:30 Creatinine 1.0 mg/dL (0.7-1.2) 12/09/22 09:30 GFR Calculation 77.6 mL/min (90-130) L 12/09/22 09:30 Glucose 359 mg/dL (65-115) H 12/09/22 09:30 POC Glucose 351 mg/dL (70-110) H 12/09/22 11:23 Calculated Osmolality 292 mOsm/kg (285-295) 12/09/22 09:30 Calcium 8.9 mg/dL (8.5-10.5) 12/09/22 09:30 Total Bilirubin 1.1 mg/dL (0.15-1.2) 12/09/22 09:30 AST 15 U/L (0-40) 12/09/22 09:30 ALT 22 U/L (0-41) 12/09/22 09:30 Alkaline Phosphatase 91 U/L (40-130) 12/09/22 09:30 Troponin T Baseline 22 ng/L (0-15) H 12/09/22 10:43 Troponin T 120 Minute 22.86 ng/L (0-15) H 12/09/22 12:54 Delta Troponin T 0.86 ABS# (0-10) 12/09/22 12:54 Total Protein 6.5 g/dL (6.6-8.7) L 12/09/22 09:30 Albumin 3.7 g/dL (3.5-5.2) 12/09/22 09:30 Globulin 2.8 g/dL (1.3-4.6) 12/09/22 09:30 Vitamin B12 520 pg/mL (232-1245) 12/09/22 09:30 Folate 11.2 ng/mL (4.5-32.2) 12/09/22 09:30 TSH 1.41 uIU/mL (0.27-4.20) 12/09/22 09:30 Urine Color Straw (Yellow) 12/09/22 09:50 Urine Appearance Clear (CLEAR) 12/09/22 09:50 Urine pH 6.5 (5-7) 12/09/22 09:50 Ur Specific [place] 1.010 (1.005-1.030) 12/09/22 09:50 Urine Protein Neg (Negative) 12/09/22 09:50 Urine Glucose (UA) 4+ (Normal) H 12/09/22 09:50 Urine Ketones Negative (Negative) 12/09/22 09:50 Urine Blood Neg (Negative) 12/09/22 09:50 Urine Nitrate Negative (Negative) 12/09/22 09:50 Urine Bilirubin Neg (Negative) 12/09/22 09:50 Urine Urobilinogen Norm mg/dL (Negative) 12/09/22 09:50 Ur Leukocyte Esterase Negative (Negative) 12/09/22 09:50 Urine Opiates Screen Negative ng/mL (Negative) 12/09/22 09:50 Ur Barbiturates Screen Negative ng/mL (Negative) 12/09/22 09:50 Ur Phencyclidine Scrn Negative ng/mL (Negative) 12/09/22 09:50 Ur Amphetamines Screen Negative ng/mL (Negative) 12/09/22 09:50 U Benzodiazepines Scrn Negative ng/mL (Negative) 12/09/22 09:50 Urine Cocaine Screen Negative ng/mL (Negative) 12/09/22 09:50 U Marijuana (THC) Screen Negative ng/mL (Negative) 12/09/22 09:50 Serum Ketones Negative (Negative) 12/09/22 09:30 Discharge Plan Discharge Patient Disposition: Admitted As Inpatient Admit Provider: Brandi Becerril Clinical Impression: Vertebrobasilar ischemia, Type 2 diabetes mellitus, TIA (transient ischemic attack), Basilar artery stenosis, Slurred speech, Hx of transient ischemic attack involving posterior circulation Condition: Stable Coding Level of Care Code ED President & Ceo for Shira Mckinley
[2022-12-09] MEDS: iohexol 350 mg/mL 500 mL Btl (per mL) IV (09:08)
[2022-12-09 09:29] LABS: Glucose Point of Care 350 mg/dL (70-110)
[2022-12-09] MEDS: insulin regular-human 100 units/1 mL 10 UNIT IVP ×2 (09:44→12:35)
[2022-12-09 09:52] LABS: Basophils # 0.1 10^3/uL (0.0-0.1); Basophils % 0.8 %; Eosinophils # 0.2 10^3/uL (0.0-0.8); Eosinophils % 1.4 %; Hematocrit 29.7 % (42.0-52.0); Hemoglobin 9.2 g/dL (11.7-16.6); Lymphocytes # 4.2 10^3/uL (0.8-4.8); Lymphocytes % 24.8 %; Mean Corpuscular Hemoglobin 33.5 pg (28.0-34.0); Mean Platelet Volume 12.1 fL (7.4-10.4); Monocytes # 2.2 10^3/uL (0.2-0.9); Monocytes % 13.3 %; Neutrophils # 9.62 10^3/uL (1.8-7.7); Neutrophils % 57.7 %; Nucleated Red Blood Cells # 0.1 /100WBC; Nucleated Red Blood Cells % 0.7 %; Platelet Count 402 10^3/cmm (130-400); Red Blood Count 2.75 10^6/uL (4.1-5.3); Red Cell Distribution Width 13.9 % (12.1-15.1); White Blood Count 16.7 10^3/uL (4.0-10.0)
[2022-12-09] MEDS: nitroglycerin drip 50 MG/250 ML PREMIX IV (09:52)
[2022-12-09 09:55] LABS: Partial Thromboplastin Time 23.7 SECONDS (23.9-36.7)
[2022-12-09 10:00] LABS: Alanine Aminotransferase 22 U/L (0-41); Albumin Level 3.7 g/dL (3.5-5.2); Alkaline Phosphatase 91 U/L (40-130); Anion Gap 15.2 (5-19); Aspartate Amino Transferase 15 U/L (0-40); Blood Urea Nitrogen 28 mg/dL (6-20); Calcium 8.9 mg/dL (8.5-10.5); Carbon Dioxide 23 mmol/L (22-29); Chloride 97 mmol/L (98-107); Globulin 2.8 g/dL (1.3-4.6); Glomerular Filtration Rate 77.6 mL/min (90-130); Glucose 359 mg/dL (65-115); Osmolality Calculated 292 mOsm/kg (285-295); Potassium 4.2 mmol/L (3.5-5.1); Sodium 131 mmol/L (136-145); Total Bilirubin 1.1 mg/dL (0.15-1.2); Total Protein 6.5 g/dL (6.6-8.7)
[2022-12-09 10:07] LABS: Add Urine Microscopic? NO; Charge for UA Resulting for Rev
--- NOTE | 2022-12-09 10:09 | P.CONIM_ITS ---
Providers/Reason For Consult Consulting Physician/Specialty*: Scott Kingston MD neurology and epilepsy Reason for Consult*: Code stroke Primary Care Provider: Umair Milton History of Present Illness History of Present Illness Ernie Plasencia is a 57 year old male with a history of hypertension treated with lisinopril in the past but discontinued after the patient lost weight. Patient also has a history of type 2 diabetes treated with metformin in the past. According to the patient after he lost weight the medication was discontinued. The patient also has a history of a brainstem stroke approximate 11 years prior to admission. According to the patient, this morning he began experiencing recurrent episodes of right cerebral TIA type symptoms manifested as slurred speech and left arm and left leg weakness. The patient's last known well was 25 minutes prior to presenting to the emergency room. Code stroke was reported at 8:34 AM today when the patient's ETA to the [facility] emergency room was 10 minutes. I presented to the emergency room at approximately 8:40 AM today. The patient was in the CT scanner and complained of severe chest pressure and dizziness and reported that he was experiencing re current episodes of left-sided weakness and slurred speech but his symptoms remained stable during the CT and CT angiogram and while he was in the emergency room bed 11. His NIH= 2 on arrival. Repeat NIH =0 at 9:25 AM and NIH=0 at 9:32 AM and NIH= 0 at 9:50 am today. Upon arrival the patient blood pressure was 230/130 which decreased down to 196/110. But, the patient's systolic blood pressure remained above 220. The patient's fasting blood sugar was reported to be 384 on admission and repeat blood sugar in the emergency room was 350. Noncontrast head CT was obtained and was negative. CT angiogram of the head and neck was performed and was reported to reveal some basilar artery stenosis. Since the patient's NIH=0, and his systolic blood pressure was elevated greater than 220 and his blood sugar was 350, he was not a candidate for tPA and tPA was not administered. When the family arrived, the patient's condition was discussed with them as well. I informed of the patient will be admitted and his blood sugar, and blood pressure will be addressed. Also recommended that the patient remain on aspirin 325 mg p.o. every morning with food and to start Lipitor 40 mg p.o. q. evening. Patient will also be scheduled for a noncontrast head MRI. Past medical history: Brainstem stroke approximately 11 years ago Type 2 diabetes mellitus is treated with metformin in the past Hypertension treated with lisinopril in the past Gouty arthritis Current medications: Concerta Allopurinol Galantamine for memory issues Nonsteroidal anti-inflammatory medication (type unknown by the patient) Drug allergies: None Past medications: Metformin, lisinopril Habits: None Family history: Negative for diabetes heart disease and hypertension Review of Systems General: Reports: 10 or more systems reviewed and unremarkable except in HPI and below Card: Reports: chest pain Musc: Reports: extremity pain and joint pain Neuro: Reports: numbness in extremities, weakness in extremities, dizziness, confusion and other (Slurred speech) Medications/Allergies Home Medications Medication Instructions Recorded Confirmed Last Taken Type allopurinol 300 mg tablet 300 mg PO DAILY 08/20/21 12/09/22 12/09/22 History galantamine 8 mg tablet 8 mg PO BID 90 days #180 tabs 12/04/22 12/09/22 Unknown Rx methylphenidate HCl 54 mg 54 mg PO QAM 30 days #30 tabs 12/04/22 12/09/22 Unknown Rx tablet,extended release 24 hr (Concerta) methylphenidate HCl 54 mg 54 mg PO QAM 30 days #30 tabs 12/04/22 12/09/22 Unknown Rx tablet,extended release 24 hr (Concerta) methylphenidate HCl 54 mg 54 mg PO QAM 30 days #30 tabs 12/04/22 12/09/22 U nknown Rx tablet,extended release 24 hr (Concerta) Allergies Allergy/AdvReac Type Severity Reaction Status Date / Time No Known Allergies Allergy Verified 12/04/22 15:49 Current Medications Generic Name Dose Route Start Last Admin Trade Name Freq PRN Reason Stop Dose Admin Nitroglycerin/Dextrose 50 mg in 250 mls @ 0 mls/hr 12/09/22 09:45 12/09/22 09:52 Nitroglycerin Drip IV 10 mcg/min .Q0M ROBBIE 3 mls/hr Administration Protocol Per Protocol PFSH Acute PFSH: Medical History Gout Hx of ischemic vertebrobasilar artery brainstem stroke (2012) Hyperlipidemia Hypertension Obstructive sleep apnea Pyruvate kinase (PK) deficiency anemia Type 2 diabetes mellitus Surgical History H/O knee surgery Left knee cap repair - [facility] - Dr. 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 Daughter Anesthesia complication Mother Cancer Lung Other Diabetes Hyperlipidemia Hypertension Stroke Denies family history of CAD (coronary artery disease) Clotting disorder Dementia Psychiatric illness Chronic kidney disease (CKD) Suicide Bleeding disorder Lung disease Social History Smoking and tobacco status: never smoked Alcohol intake: never Substance/Drug Use: never service: Yes Physical Exam Narrative: Blood pressure 230/130 on admission. Blood sugar 384 on admission, fasting The patient is currently alert and oriented x3 his speech is fluent. Head atraumatic. Neck supple. There were no obvious carotid bruits. Cranial nerves II through XII intact. There was no obvious facial weakness. Sensory was intact to touch in the face and extremities. Visual doe appeared full via confrontation. Pupils equal round reactive to light and accommodation. Extraocular movements intact. There were no nystagmus. Motor examination 5/5 bilaterally. Initially the patient had a mild drift in the left arm and left leg but on repeat neurological testing his strength was 5/5 and the patient was able to elevate his extremities against resistance. Deep tendon reflexes 2+ bilaterally. Plantar responses flexor bilaterally. There was no clonus. Sensory examination was intact to touch. There was no extinction on double sensory stimulation. There was no ataxia during gross assessment of his upper and lower extremities. Note: Gait was not tested secondary to reports of TIA episodes and elevated blood pressure and complaints of chest pain/pressure. Throat clear. Lungs clear. Heart regular rhythm and rate. Extremities were negative for clubbing or cyanosis or edema. Patient did have a surgical scar over the right knee. There was no sign of infection. Data 12/09/22 09:30 12/09/22 09:30 A&P Assessment and plan (1) TIA (transient ischemic attack): Assessment: 1. Clinical history suggestive of right cerebral TIA episodes manifested as slurred speech and left arm and left leg weakness, currently stable (NIH= 0 at 9:50 AM). Therefore no tPA was administered. 2. Abnormal CT angiogram of the head and neck secondary to reports of basilar artery stenosis 3. Hypertension, uncontrolled (patient was treated with lisinopril in the past) 4. Type 2 diabetes mellitus with fasting blood sugar on admission of 384 (patient reports being treated with metformin in the past) 5. History of gout 6. History of memory difficulty treated with galantamine by Dr. Frazier Plan: 1. Recommend aspirin 325 mg p.o. every morning with food (patient reports taking 2 adult aspirin this morning prior to presenting to the emergency room at [facility] room 2. Recommend starting Lipitor 40 mg p.o. q. evening 3. Agree with IV nitroglycerin for elevated blood pressure and chest disco mfort/chest pain and pressure 4. Agree with treatment for elevated blood sugar 5. Agree with cardiac evaluation for chest pain 6. Noncontrast head MRI to further assess for right cerebral versus right subcortical versus posterior circulation strokes 7. Patient was instructed to discontinue nonsteroidal anti-inflammatory drugs since these medication have been reported to be associated with increased risk for cardiac disease and strokes (this information was also relayed to the family who was present in the emergency room bed 11) (2) Basilar artery stenosis: (3) Dizzy: (4) Slurred speech: Plan Assessment: 1. Clinical history suggestive of right cerebral TIA episodes manifested as slurred speech and left arm and left leg weakness, currently stable (NIH= 0 at 9:50 AM). Therefore no tPA was administered. 2. Abnormal CT angiogram of the head and neck secondary to reports of basilar artery stenosis 3. Hypertension, uncontrolled (patient was treated with lisinopril in the past) 4. Type 2 diabetes mellitus with fasting blood sugar on admission of 384 (patient reports being treated with metformin in the past) 5. History of gout 6. History of memory difficulty treated with galantamine by Dr. Frazier Plan: 1. Recommend aspirin 325 mg p.o. every morning with food (patient reports taking 2 adult aspirin this morning prior to presenting to the emergency room at [facility] emergency room 2. Recommend starting Lipitor 40 mg p.o. q. evening 3. Agree with IV nitroglycerin for elevated blood pressure and chest discomfort/chest pain and pressure 4. Agree with treatment for elevated blood sugar 5. Agree with cardiac evaluation for chest pain 6. Noncontrast head MRI to further assess for right cerebral versus right subcortical versus posterior circulation strokes 7. Patient was instructed to discontinue nonsteroidal anti-inflammatory drugs since these medication have been reported to be associated with increased risk for cardiac disease and strokes (this information was also relayed to the family who was present in the emergency room bed 11) Consult Attestations Medical Necessity Statement: The patient was evaluated by neurology for code stroke and recurrent TIA symptoms Time Spent in Patient Care: 70 minutes Coding Level of Care Code 23979 Diagnoses TIA (transient ischemic attack) G45.9 Basilar artery stenosis I65.1 Dizzy R42 Slurred speech R47.81 Time Spent (min) 70
[2022-12-09 10:16] LABS: Blood Urine Neg (Negative); Glucose Urine UA 4+ (Normal); Ketones Urine Negative (Negative); Protein Urine Neg (Negative); Urine Appearance Clear (CLEAR); Urine Color Straw (Yellow); pH Urine 6.5 (5-7)
[2022-12-09 10:17] LABS: Bilirubin Urine Neg (Negative); Leukocyte Esterase Urine Negative (Negative); Nitrate Urine Negative (Negative); Urobilinogen Urine Norm (Negative)
[2022-12-09 10:23] LABS: Amphetamines Screen Urine Negative (Negative); Barbiturates Screen Urine Negative (Negative); Benzodiazepines Screen Urine Negative (Negative); Cocaine Screen Urine Negative (Negative); Opiate Screen Urine Negative (Negative); PCP Screen Urine Negative (Negative); THC Screen Urine Negative (Negative)
--- NOTE | 2022-12-09 10:27 | ECG_ITS ---
[facility] Test Date: 2022-12-09 Pat Name: Ernie Plasencia Department: Room: Gender: Male Production Lead: : 1965 Requested By: Olayinka Gutierrez Order Number: [id number] Melina MD: Ricco Nguyen M.D. Measurements Intervals [place] Rate: 103 P: 47 MT: 132 QRS: 51 QRSD: 106 T: 65 QT: 333 QTc: 437 Interpretive Statements SINUS TACHYCARDIA LEFT VENTRICULAR HYPERTROPHY AND ST-T CHANGE [VOLTAGE CRITERIA PLUS ST/T ABNORMALITY] No previous ECG available for comparison Electronically Signed On 12-09-2022 17:08:32 CDT by Ricco Nguyen M.D. [email or web address]
[2022-12-09 11:06] LABS: Troponin(5th) Baseline 22 ng/L (0-15)
[2022-12-09 11:57] LABS: Thyroid Stimulating Hormone 1.41 uIU/mL (0.27-4.20); Vitamin B12 520 pg/mL (232-1245)
[2022-12-09 11:59] LABS: Folate Level 11.2 ng/mL (4.5-32.2)
[2022-12-09 12:06] LABS: Ketone (Acetest) Serum Negative (Negative)
--- NOTE | 2022-12-09 12:27 | ECG_ITS ---
[facility] Test Date: 2022-12-09 Pat Name: Ernie Plasencia Department: Room: Gender: Male [employer] Operator: : 1965 Requested By: Olayinka Gutierrez Order Number: [id number] Melina MD: Ricco Nguyen M.D. Measurements Intervals [place] Rate: 102 P: 64 CT: 152 QRS: 67 QRSD: 96 T: 88 QT: 323 QTc: 421 Interpretive Statements SINUS TACHYCARDIA POSSIBLE LEFT ATRIAL ENLARGEMENT [-0.1mV P-WAVE IN V1/V2] LEFT VENTRICULAR HYPERTROPHY AND ST-T CHANGE [VOLTAGE CRITERIA PLUS ST/T ABNORMALITY] Compared to ECG 12/09/2022 09:38:20 No significant changes Electronically Signed On 12-09-2022 17:17:43 CDT by Ricco Nguyen M.D. [id number]
[2022-12-09] MEDS: LORazepam 2 mg/mL INJ 1 mL IVP (12:35)
[2022-12-09] MEDS: heparin 5,000 unit/mL INJ 1 mL IV ×2 (13:13→18:14)
[2022-12-09] MEDS: heparin drip 25,000 UNIT/500 ML PREMIX 29.21 UNIT IV (13:15)
[2022-12-09 13:18] LABS: Troponin 5 2HR 22.86 ng/L (0-15)
[2022-12-09 13:35] LABS: Troponin 5 2HR Delta 0.86 ABS# (0-10)
--- NOTE | 2022-12-09 14:02 | PC.NURSE ---
Pt arrives to ICU. Pt alert and oriented. NIHS 0. NO complaints of pain. Pt stated he was tired. Heparin and Nitro infusing, in to bilat IVs without difficulties.
--- NOTE | 2022-12-09 14:12 | P.PN_ITS ---
Subjective Subjective: This is an addendum dictation for critical care time on Ernie Plasencia. Date 12/09/2022 critical care time: 30 minutes. I was contacted by the attending ER physician to reevaluate the patient this a fternoon to assess for potential change in his neurological condition. During the patient's initial neurological assessment earlier on the morning of 12/09/2022, the patient presented to the emergency room with recurrent TIA episodes manifested as left arm and left leg weakness and slurred speech. D uring the patient's initial neurological assessment while he was still in the CT scanner revealed an NIH =2. Repeat NIH=0 on several assessments. Since the patient was stable with no further episodes of left arm weakness or dysarthria, and a NIH score = 0 to 2, he was not a candidate for tPA. Prior to me leaving the patient's bedside in the emergency room in room 11, the patient is NIH score =0. The patient also was still experiencing significant elevation of his blood pressure and elevated blood sugar greater than 300. Noncontrast head CT was obtained and revealed no acute findings or acute strokes or hemorrhage. CT angiogram was obtained and was reported to reveal stenosis with possible thrombus in the distal basilar. Clinically the patient was not experiencing any posterior circulation symptoms. In view of the posterior circulation stenosis, I agreed with the attending physician to not be aggressive lowering the patient's blood pressure to assure the patient was still receiving adequate perfusion in the posterior circulation. Around 12:50 PM today, the ER physician contacted me via phone to reassess the patient since he was experiencing recurrent slurred speech. Upon evaluation the patient was displaying dysarthria and on clinical examination he had some horizontal nystagmus on right lateral gaze. Patient denied any visual loss or weakness in his arms or legs. He also denied any dizziness. NIH =1-2. I reviewed the CT angiogram study with the emergency room physician who had just spoken with the neuroradiologist. I informed the patient's family who was at bedside that we would contact one of the [facility] that has a stroke sales representative [employer] team to determine if the patient would be a candidate for thrombectomy of the basilar artery and the patient was started on IV heparin drip. The attending ER physician reviewed the case with the stroke sales representative public [employer] team at one of the [facility] facility via phone while I was in the emergency room standing next to the attending ER physician and no intravascular intervention was recommended by the physician at the [facility]. The patient's family was informed of the treatment plan which is to admit the patient to the intensive care unit to address his cardiac complaints, elevated blood pressure, elevated glucose, and posterior circulation basilar artery stenosis. The patient will be started on Lipitor 40 mg every evening watch closely. He will also be scheduled for head MRI and we will consider repeat head CT scan and CT angiogram of the head and neck if needed. The family agree with this plan. Past medical history: Brainstem stroke approximately 11 years ago Type 2 diabetes mellitus is treated with metformin in the past Hypertension treated with lisinopril in the past Gouty arthritis Current medications: Concerta Allopurinol Galantamine for memory issues Nonsteroidal anti-inflammatory medication (type unknown by the patient) Drug allergies: None Past medications: Metformin, lisinopril Habits: ?None Family history: Negative for diabetes heart disease and hypertension Review of Systems General:?? Reports: 10 or mor e systems reviewed and unremarkable except in HPI and below Card:?? Reports: chest miller n Musc:?? Reports: extremity pain and joint pa in Neuro:?? Reports: numbness in extremities, we akness in extremit ies, dizziness, co nfusion and other (Slurred speech) Vitals/I&O/Wt Last Vital Signs Pulse 110 H 12/09/22 10:46 Resp 20 H 12/09/22 10:46 BP 230/130 12/09/22 10:46 Pulse Ox 95 12/09/22 10:46 12/08/22 12/09/22 12/09/22 22:59 06:59 14:59 Intake Total 1.9 / 1.9 Balance 1.9 / 1.9 Weight last 48 hrs Weight 230 lb Physical Exam Narrative: NIH score =1-2 The patient remains alert. He is oriented to person place and situation. Speech intermittently dysarthric but at other times his speech is clear. Pupils 3 mm pupils round and reactive to light and accommodation. Extraocular movements intact. Patient did have brief horizontal nystagmus on right lateral gaze. But, this could not be reproduced on repeat exam approximately 5 minutes later. Cranial nerves II through XII intact without obvious facial weakness. Patient was able to elevate his palate did not stick out his tongue. Sensation was intact in his face. Motor examination was 5/5 bilaterally. Neck supple without obvious bruit. Deep tendon reflexes 2+ bilaterally. Plantar responses flexor bilaterally. There was no clonus. Sensory examination was intact to touch. Throat clear. Lungs clear. Heart revealed regular rhythm. There were no obvious murmurs. Abdomen soft. Bowel sounds positive. Extremities were negative for clubbing cyanosis or edema. There was a surgical scar over the right knee. There was no sign of infection. Data 12/09/22 09:30 12/09/22 09:30 A&P Assessment and plan (1) TIA (transient ischemic attack): (2) Basilar artery stenosis: (3) Slurred speech: (4) Hx of transient ischemic attack involving posterior circulation: Plan Assessment: 1. Acute posterior circulation TIAs manifested as slurred speech with 1 brief episode of horizontal nystagmus on right lateral gaze that could not be reproduced on repeat examination 2. Patient admitted secondary to acute recurrent right cerebral TIAs manifested as slurred speech, left lower facial weakness and left arm and left leg weakness most likely secondary to uncontrolled malignant hypertension and uncontrolled diabetes with blood sugar greater than 350 on admission, currently stable with improvement of the patient's blood pressure and blood glucose levels 3. History of remote right cerebellar infarctions most likely secondary to hypertension 3a. Chest pain 4. History of type 2 diabetes mellitus (treated with metformin in the past) 5. History of hypertension (treated with lisinopril in the past) 6. History of obstructive sleep apnea on sleep 7. History of splenectomy Plan: 1. Agree with IV heparin for basilar artery stenosis since the patient was reported not to be a candidate for thrombectomy 2. Since the patient has a past history of strokes and type 2 diabetes mellitus and when he presented to the emergency room on the morning of 12/09/2022 he was experiencing right hemisphere TIA symptoms manifested as slurred speech and left arm and left leg weakness and left lower facial weakness with an NIH score =2 with several repeat NIH= 0-1 and the afternoon posterior circulation symptoms that occur intermittently had an NIH score =1-2, and elevated blood pressure which had to remain at an elevated level with slow/gradual lowering of his blood pressure to assure adequate posterior circulation perfusion secondary to the basilar artery stenosis, the patient was not a candidate for tPA and no tPA was given. 3. Monitor PT and PTT's 4. Lipitor 40 mg p.o. q. evening as part of the poststroke prophylaxis 5. Monitor CBC since the patient has a history of low red blood cell count and is on IV heparin 6. Once patient is stable and heparin discontinued, recommend starting Plavix 75 mg p.o. every morning with food and aspirin 81 mg p.o. every morning with food 7. Continue neurochecks per ICU stroke protocol 8. Blood work and lipid profile per ICU stroke protocol 9. Recommend noncontrast head MRI to further assess for any acute posterior circulation strokes 10. Consider repeat CT angiogram of the [place] and great vessels of the neck if needed 11. Continue nonsteroidal anti-inflammatory medications (patient was taking nonsteroidal anti-inflammatory medications at home) 12. We will continue to follow patient's neurological condition Attestations Medical Necessity Statement*: Patient was reevaluated on 12/09/2022 after the consultation was performed secondary to the attending ER physician contacted me via phone to reevaluate the patient's neurological condition. Critical Care Time: I was contacted by the ER physician today to reevaluate the patient while he was still in the emergency room bed 11 secondary to a questionable change in the patient's neurological condition. Critical care time 30 minutes Coding Level of Care Code Critical Care >/= 30 minutes Diagnoses TIA (transient ischemic attack) G45.9 Basilar artery stenosis I65.1 Slurred speech R47.81 Hx of transient ischemic attack involving posterior circulation Z86.73 Time Spent (min) 30 Comment Addendum neuro assessment
--- NOTE | 2022-12-09 14:18 | PM.HP ---
Providers/Chief Complaint Admitting Physician: Laith Dominguez MD Primary Care Provider: Umair Milton Chief Complaint: STROKE ALERT History of Present Illness Ernie Plasencia is a 57 year old male presenting to the emergency department with complaints of left hemiparesis occurring suddenly this morning, around 8 AM this morning. Patient has prior history of cerebellar CVA. Slurred speech was also noted. He was brought promptly to the emergency department, and was determined not to be a candidate for tPA. Secondary to some waxing and waning symptoms he was reevaluated by neurology and emergency department during his course to confirm no higher level of care was needed. He received some Ativan, which helped his anxiousness significantly. This also seemed to help some of the stuttering of his speech/slurring of his speech and cramping type feeling on his left side. He denies any headache currently. While in the emergency department he did have some chest discomfort as well and cardiac work-up ensued. He reports no chest discomfort currently. Blood pressure was markedly elevated on arrival to emergency department, and considering his chest discomfort nitroglycerin drip was started to reduce his blood pressure by approximately 20%. A small amount of IV fluids was given for hydration secondary to stroke symptoms. He has not been ill lately. Review of Systems General: Reports: 10 or more systems reviewed and unremarkable except in HPI and below Const: Denies: fever(s) or chills Card: Reports: chest pain; Denies: swelling of feet/ankles Resp: Denies: dyspnea GI: Denies: hematochezia or melena Medications/Allergies Home Medications Medication Instructions Recorded Confirmed Last Taken Type allopurinol 300 mg tablet 300 mg PO DAILY 08/20/21 12/09/22 12/09/22 History galantamine 8 mg tablet 8 mg PO BID 90 days #180 tabs 12/04/22 12/09/22 Unknown Rx methylphenidate HCl 54 mg 54 mg PO QAM 30 days #30 tabs 12/04/22 12/09/22 Unknown Rx tablet,extended release 24 hr (Concerta) methylphenidate HCl 54 mg 54 mg PO QAM 30 days #30 tabs 12/04/22 12/09/22 Unknown Rx tablet,extended release 24 hr (Concerta) methylphenidate HCl 54 mg 54 mg PO QAM 30 days #30 tabs 12/04/22 12/09/22 Unknown Rx tablet,extended release 24 hr (Concerta) Allergies Allergy/AdvReac Type Severity Reaction Status Date / Time No Known Allergies Allergy Verified 12/04/22 15:49 PFSH Acute PFSH: Medical History Gout Hx of ischemic vertebrobasilar artery brainstem stroke (2012) Hyperlipidemia Hypertension Obstructive sleep apnea Pyruvate kinase (PK) deficiency anemia Type 2 diabetes mellitus [facility] [place] 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 Daughter Anesthesia complication Mother Cancer Lung Other Diabetes Hyperlipidemia Hypertension Stroke Denies family history of CAD (coronary artery disease) Clotting disorder Dementia Psychiatric illness Chronic kidney disease (CKD) Suicide Bleeding disorder Lung disease Social History Smoking and tobacco status: never smoked Alcohol intake: never Substance/Drug Use: never service: Yes Vitals/I&O/Wt Last Vital Signs Pulse 110 H 12/09/22 10:46 Resp 20 H 12/09/22 10:46 BP 230/130 12/09/22 10:46 Pulse Ox 95 12/09/22 10:46 12/08/22 12/09/22 12/09/22 22:59 06:59 14:59 Intake Total 1.9 / 1.9 Balance 1.9 / 1.9 Weight last 48 hrs Weight 104.326 kg Physical Exam Narrative: L,General exam is a currently in no distress HEENT: Atraumatic normocephalic. Pupils equally round. Oropharynx clear. Neck is supple no lymphadenopathy thyromegaly Cardiovascular regular rate and rhythm, no murmur Lungs clear no wheezing or crackles Abdomen is soft with positive bowel sounds. No obvious organomegaly exam deferred Extremities no cyanosis clubbing or edema, cap refill brisk Skin no rash Neuro no obvious focal deficits. Last stroke score 0. Data 12/09/22 09:30 12/09/22 09:30 Other Labs: INR was normal. Calcium, LFTs normal Initial troponin 22 with repeat of 22 TSH 1.4. I ordered this test. B12 and folate are normal as well. Urinalysis and urine drug screen negative. CT head noncontrast demonstrates chronic infarcts right cerebellum, small vessel disease. I visualized this as well. Head neck CTA demonstrates less than 50% ICA stenosis bilaterally. Short segment high-grade stenosis distal basilar artery, cannot rule out small amount of thrombus. EKG demonstrates sinus tachycardia, normal axis, nonspecific ST-T wave changes, LVH A&P Assessment and plan (1) TIA (transient ischemic attack): Patient presented with right hemispheric symptoms consisting of left hemiparesis and slurred speech. These have gone away quickly, representing a TIA. While in the emergency department there was concern of basilar artery symptoms, of recurrent slurred speech and at 1 point concern of some nystagmus by neurologic exam. There is concern of high-grade stenosis distal basilar artery and small amount of thrombus cannot be ruled out. Heparin was recommended by neurology and was initiated. Aspirin daily Statin Lipitor 80mg a day Telemetry Echocardiogram Appreciate neurology input Therapy consultations Continue hydration Try to allow permissive hypertension, although with concurrent chest discomfort this has been somewhat difficult. I have decided to lower blood pressure to approximately 190 systolic. Systolic blood pressure was approximately 230 on arrival. Neurology would like an MRI of head without contrast. We will try to arrange tomorrow if stable (2) Chest pain: Patient presented with TIA. He then complained of chest discomfort. Nitroglycerin drip was initiated Check echocardiogram Serial troponins (3) Type 2 diabetes mellitus: Sliding scale insulin will be initiated Hemoglobin A1c tomorrow (4) Pyruvate kinase (PK) deficiency anemia: MCV markedly elevated, likely secondary to this condition Patient denies any history of blood loss B12 folate TSH all checked and normal. (5) Attention deficit disorder: Hold stimulant currently secondary to CVA, elevated blood pressure Plan Multiple other medical problems as outlined in past medical history Full code Heparin drip will suffice for DVT prophylaxis Attestations Medical Necessity Statement*: Will require greater than 2 midnight stay for evaluation and treatment of TIA, chest pain, markedly elevated blood pressure Critical Care Time: The high probability of a clinically significant, sudden or life threatening deterioration of the patient's [neurologic, cardiac] system(s) required my full and direct attention, intervention and personal management. The critical care time is as shown. This time is in addition to time spent performing any reported procedures but includes the following: [x] Data and vital sign review and interpretation [x] Patient assessment, examination and intervention [x] Documentation [x] Medication orders and management Critical Care Time (min): 69 Coding Level of Care Code Critical Care >/= 30 minutes Critical care time (in minutes): 69 The high probability of a clinically significant, sudden or life threatening deterioration, as referenced in this documentation, required my full and direct attention, intervention and personal management. The critical care time shown is in addition to time spent performing any reported separately billable procedures and includes the following: [x] Data and vital sign review and interpretation [x] Patient assessment, examination and intervention [x] Medication orders and management [x] Patient/Family updates as able [x] Care Coordination and Documentation. Diagnoses TIA (transient ischemic attack) G45.9 Chest pain R07.9 Type 2 diabetes mellitus E11.9 Pyruvate kinase (PK) deficiency anemia D55.21 Attention deficit disorder F98.8 Time Spent (min) 69
--- NOTE | 2022-12-09 14:24 | PC.NURSE ---
Transferred patients wallet and phone to ICU.
--- NOTE | 2022-12-09 14:28 | USCV_ITS ---
Ernie Plasencia Age: 57 Gender: M : 1965 Exam Date: 12/09/2022 15:23 Ordering Phys: Laith Dominguez MD Technologist: John Pretty [place] [facility] [place]: chest BP: 166 / 94 HR: 96 Rhythm: Sinus Technical Quality: Adequate MEASUREMENTS (Male / Female) Normal Values 2D ECHO LV Diastolic Diameter PLAX 4.1 cm 4.2 - 5.9 / 3.9 - 5.3 cm LV Systolic Diameter PLAX 2.6 cm IVS Diastolic Thickness 1.4 cm 0.6 - 1.0 / 0.6 - 0.9 cm IVS Systolic Thickness 1.5 cm LVPW Diastolic Thickness 1.5 cm 0.6 - 1.0 / 0.6 - 0.9 cm LVPW Systolic Thickness 1.5 cm LVOT Diameter 2.0 cm LV Ejection Fraction 2D Teich 66.9 % LV Ejection Fraction MOD 2C 63.8 % LV Ejection Fraction 2C AL 63.5 % LA Diameter 3.5 cm IVC Diameter 1.1 cm M-MODE Aortic Annulus Diameter 3.7 cm LA Ao Ratio MM 1.1 MV E Point Septal Separation 1.1 cm DOPPLER AV Peak Velocity 136.0 cm/s LVOT Peak Velocity 108.0 cm/s AV Area Cont Eq vti 3.4 cm squared AV Area Cont Eq pk 2.6 cm squared MV Area PHT 6.3 cm squared Mitral E to A Ratio 1.0 MV E' Velocity 43.5 cm/s Mitral E to MV E' Ratio 1.8 Mitral E to LV E' Lateral Ratio 8.0 Mitral E to LV E' Septal Ratio 1.0 TR Peak Velocity 157.0 cm/s TR Peak Gradient 9.9 mmHg TV Peak E Velocity 92.0 cm/s Right Atrial Pressure 3.0 mmHg Pulmonary Artery Systolic Pressu 12.9 mmHg RV Acceleration Time 0.2 s FINDINGS Left Ventricle Left ventricle is normal size. LV systolic function is normal with EF 55 to 60%. No regional wall motion abnormalities are seen. Right Ventricle Normal in size and function Right Atrium Normal in size Left Atrium Normal in size Mitral Valve Structurally normal mitral valve. Aortic Valve Structurally normal aortic valve. No significant stenosis or regurgitation. Tricuspid Valve Mild tricuspid regurgitation. Insufficient TR jet to evaluate RVSP. Pulmonic Valve Not well-visualized. Pericardium Normal Aorta Normal in size IVC Appears to be normal CONCLUSIONS LV systolic function is normal with EF of 55 to 60% No significant valvular heart disease is seen. No comparison studies are available Trey Mcdaniel MD (Electronically Signed) Final Date: 10 Dec 2022 10:29 S
--- NOTE | 2022-12-09 14:53 | MRR_ITS ---
PROCEDURE INFORMATION: Exam: MR Head Without Contrast Exam date and time: 12/09/2022 4:31 PM Age: 57 years old Clinical indication: Patient HX: Dizziness, known CVA 2014 ? TIA in the last few days, no injury, diabetic TECHNIQUE: Imaging protocol: Magnetic resonance imaging of the head without contrast. COMPARISON: CT head thrombolytic [id number] 12/09/2022 8:42 AM FINDINGS: Brain: Diffuse volume loss. There is a 3 mm focus of bright signal intensity series 402, image 8 that possibly could be an acute infarct although no signal abnormality is identified on any of the other series and there is a band of artifact through this portion of the cerebellum. No additional acute infarct. No hemorrhage. Mild deep white matter and periventricular T2/FLAIR bright signal intensity compatible with chronic small vessel disease changes. There is mild encephalomalacia in the right cerebellum. No edema. Cerebral ventricles: Normal. No ventriculomegaly. Bones/joints: Unremarkable. Paranasal sinuses: Normal as visualized. No acute sinusitis. Mastoid air cells: Normal as visualized. No mastoid effusion. Orbital cavities: Unremarkable. Soft tissues: Unremarkable. MR/MR head wo con* [id number] IMPRESSION: There is a solitary axial image concerning for a 3 mm acute infarct in the right cerebellum on only 1 series, however, this is suspected to be artifact as described above. No additional acute abnormality.
--- NOTE | 2022-12-09 16:44 | PC.SLP ---
Orders received, chart reviewed. Patient had just left unit to MRI. Will attempt to assess patient on 12/10/22.
--- NOTE | 2022-12-09 17:21 | ECG_ITS ---
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 Measurements Intervals [place] Rate: 91 P: -7 MT: 164 QRS: 142 QRSD: 98 T: 152 QT: 318 QTc: 393 Interpretive Statements SINUS RHYTHM LEFT POSTERIOR FASCICULAR BLOCK [QRS AXIS > 109, INFERIOR Q] LEFT VENTRICULAR HYPERTROPHY AND ST-T CHANGE [VOLTAGE CRITERIA PLUS ST/T ABNORMALITY] Compared to ECG 12/09/2022 12:16:59 Left posterior fascicular block now present Sinus tachycardia no longer present ST (T wave) deviation still present Electronically Signed On 12-10-2022 11:55:03 CDT by Trey Mcdaniel M.D. [email or web address]
[2022-12-09 17:26] LABS: Partial Thromboplastin Time 31.9 SECONDS (23.9-36.7)
[2022-12-09] MEDS: acetaminophen 325 mg Tablet 650 MG PO (17:27)
[2022-12-09] MEDS: D5-NS 0.45% + KCL 20 mEq 20 MEQ/1,000 ML BAG 100 MEQ IV (17:29)
[2022-12-09 17:33] LABS: Troponin 5 6HR 19.95 ng/L (0-15); Troponin 5 6HR Delta -2.05 ng/L (0-12)
--- NOTE | 2022-12-09 19:21 | PC.NURSE ---
Shift summary: Pt has shown no neuro deficits since arrival to ICU. His blood pressures were elevated upon arrival, Nitro gtt was at 15mcg/min now it has been decreased to 8mcg/min. Pt started complaining about a H/A this evening after completion of the MRI. Heparin gtt infusing, rate adjusted and bous administered per protocol. Pt used urinal twice this shift, 1450ml output. Bedside swallow eval completed, patient passed.
[2022-12-09] MEDS: atorvastatin 40 mg Tablet PO (20:50)
[2022-12-09 20:57] LABS: Glucose Point of Care 388 mg/dL (70-110)
[2022-12-09] MEDS: sodium chloride 0.9% 1,000 ML 75 ML IV (22:00)
[2022-12-09 22:14] LABS: Glucose Point of Care 392 mg/dL (70-110)
[2022-12-09] MEDS: insulin lispro 100 unit/1 mL SUBCUT (22:19)
[2022-12-10] VITALS (60 sets, daily range): BP systolic 129–204; BP diastolic 55–129; PULSE 73–95; RESP 0–20; TEMP 36.7–36.9; O2SAT 78–99
[2022-12-10 00:19] LABS: Glucose Point of Care 213 mg/dL (70-110)
[2022-12-10 00:43] LABS: Basophils # 0.1 10^3/uL (0.0-0.1); Basophils % 0.6 %; Eosinophils # 0.4 10^3/uL (0.0-0.8); Eosinophils % 2.1 %; Hematocrit 29.5 % (42.0-52.0); Hemoglobin 9.1 g/dL (11.7-16.6); Lymphocytes # 4.2 10^3/uL (0.8-4.8); Lymphocytes % 22.4 %; Mean Corpuscular HGB Conc 30.8 g/dL (30.0-36.0); Mean Corpuscular Hemoglobin 33.7 pg (28.0-34.0); Mean Corpuscular Volume 109.3 fl (80-94); Mean Platelet Volume 11.8 fL (7.4-10.4); Monocytes # 2.6 10^3/uL (0.2-0.9); Monocytes % 14.1 %; Neutrophils # 10.96 10^3/uL (1.8-7.7); Neutrophils % 59.3 %; Nucleated Red Blood Cells # 0.2 /100WBC; Platelet Count 381 10^3/cmm (130-400); Red Cell Distribution Width 14.4 % (12.1-15.1); White Blood Count 18.5 10^3/uL (4.0-10.0)
[2022-12-10 01:04] LABS: Cholesterol 207 mg/dL (0-200); HDL Cholesterol 45 mg/dL (60-100); LDL Cholesterol Calculated 127 mg/dL (50-129); LDL HDL Ratio 2.82 RATIO (0.00-3.22); Triglycerides 177 mg/dL (0-150)
[2022-12-10 01:05] LABS: Alanine Aminotransferase 21 U/L (0-41); Albumin Level 3.5 g/dL (3.5-5.2); Alkaline Phosphatase 81 U/L (40-130); Aspartate Amino Transferase 16 U/L (0-40); Blood Urea Nitrogen 24 mg/dL (6-20); Calcium 9.4 mg/dL (8.5-10.5); Carbon Dioxide 27 mmol/L (22-29); Chloride 105 mmol/L (98-107); Creatinine Clr Calc Pharmacy 93.2751; Globulin 2.7 g/dL (1.3-4.6); Glomerular Filtration Rate 69.5 mL/min (90-130); Glucose 180 mg/dL (65-115); Osmolality Calculated 299 mOsm/kg (285-295); Sodium 140 mmol/L (136-145); Total Protein 6.2 g/dL (6.6-8.7)
[2022-12-10 01:11] LABS: Slide Review Slide Review Perform
[2022-12-10 01:28] LABS: Estmated Average Glucose 166; Hemoglobin A1C 7.4 % (4.0-6.0)
[2022-12-10 04:41] LABS: Glucose Point of Care 351 mg/dL (70-110)
[2022-12-10] MEDS: heparin drip 25,000 UNIT/500 ML PREMIX 35 UNIT IV (06:05)
[2022-12-10 08:07] LABS: Glucose Point of Care 249 mg/dL (70-110)
--- NOTE | 2022-12-10 08:27 | PM.PN ---
Subjective Subjective: History of present illness: 57-year-old male with a history of remote right cerebellar stroke, hypertension and type 2 diabetes mellitus. The patient was on lisinopril for hypertension and metformin for diabetes but patient reported that he lost weight and these medications were not continued. The patient was brought to the hospital secondary to reports of recurrent left-sided weakness involving his left lower face, left arm and left leg associated with slurred speech. Patient blood pressure was significantly elevated with systolic blood pressure greater than 220 and elevated blood sugar greater than 300. The patient was also complaining of chest pressure/pain. Head CT scan without contrast revealed no acute findings. CT angiogram of the head and neck revealed stenosis of the basilar artery just proximal to the basilar tip suggestive of a possible thrombus in this area. The patient was started on IV nitroglycerin for blood pressure and chest pain by the attending ER physician and IV normal saline and insulin was administered for the elevated blood glucose. The patient is NIH score =2 and later NIH =0. Therefore, no tPA was administered. And the patient was asymptomatic from the basilar artery stenosis. After the patient had been in the ER for greater than 3 hours I was contacted to reevaluate the patient secondary to increasing recurrent episodes of slurred speech. Repeat neurological examination revealed horizontal nystagmus on right lateral gaze associated with dysarthria. There was concern that the patient may now be experiencing symptoms from the basilar artery stenosis. [facility] stroke [facility] was contacted to determine if the patient was a candidate for basilar artery thrombectomy. The [facility] stated the patient was not a candidate for thrombectomy. Therefore I spoke with the family and the patient was started on IV heparin. This morning the patient is doing well he denied any further TIA episodes and patient informing that he was able to ambulate to the bathroom with the nurse. Past medical history: Brainstem stroke approximately 11 years ago Type 2 diabetes mellitus is treated with metformin in the past Hypertension treated with lisinopril in the past Gouty arthritis Current medications: Concerta Allopurinol Galantamine for memory issues Nonsteroidal anti-inflammatory medication (type unknown by the patient) Drug allergies: None Past medications: Metformin, lisinopril Habits: ?None Family history: Negative for diabetes heart disease and hypertension Review of systems: The patient denies headaches, visual difficulty, speech difficulty swallowing difficulty dizziness weakness chest pain shortness of breath abdominal pain Vitals/I&O/Wt Last Vital Signs Temp 98.1 F 05/09/23 00:00 Pulse 79 12/10/22 06:00 Resp 0 L 12/10/22 06:00 BP 154/72 12/10/22 06:00 Pulse Ox 92 12/10/22 06:00 O2 Del Method Room Air 12/09/22 18:30 O2 Flow Rate 2 12/09/22 15:00 12/09/22 12/10/22 12/10/22 22:59 06:59 14:59 Intake Total 1273.218 / 1275.118 605.904 / 1881.022 Output Total 2049 / 2049 750 / 2800 Balance -776.782 / -774.882 -144.096 / -918.978 Weight last 48 hrs Weight 230 lb Physical Exam Narrative: The patient is alert and oriented x3. Speech fluent. Head atraumatic. Neck supple cranial nerves II through XII intact. Pupils 3 mm round reactive to light and accommodation. There were no nystagmus on extraocular movements. Visual doe via confrontation appeared full. Motor examination 5/5 bilaterally. There was no ataxia. Sensory exam intact to touch. Plantar responses flexor bilaterally. Heart regular rhythm extremities negative for clubbing or cyanosis Data 12/10/22 00:29 12/10/22 00:29 A&P Assessment and plan (1) TIA (transient ischemic attack): (2) Basilar artery stenosis: (3) Hx of transient ischemic attack involving posterior circulation: Plan Assessment: 1.? Acute posterior circulation TIAs manifested as slurred speech with 1 brief episode of horizontal nystagmus on right lateral gaze that could not be reproduced on repeat examination, currently stable on IV heparin drip 2.? Acute recurrent right cerebral TIAs manifested as slurred speech, left lower facial weakness and left arm and left leg weakness most likely secondary to uncontrolled malignant hypertension and uncontrolled diabetes with blood sugar greater than 350 on admission, currently stable with improvement of the patient's blood pressure and blood glucose levels, stable 3.? History of remote right cerebellar infarctions most likely secondary to hypertension 3a.? Chest pain 4.? History of type 2 diabetes mellitus (treated with metformin in the past) 5.? History of hypertension (treated with lisinopril in the past) 6.? History of obstructive sleep apnea on sleep 7.? History of splenectomy Plan: 1.? Continue IV heparin for basilar artery stenosis since the patient was reported not to be a candidate for thrombectomy 2.? Since the patient has a past history of strokes and type 2 diabetes mellitus and when he presented to the emergency room on the morning of 12/09/2022 he was experiencing right hemisphere TIA symptoms manifested as slurred speech and left arm and left leg weakness and left lower facial weakness with an NIH score =2 with several repeat NIH= 0-1 and the afternoon posterior circulation symptoms that occur intermittently had an NIH score =1-2, and elevated blood pressure which had to remain at an elevated level with slow/gradual lowering of his blood pressure to assure adequate posterior circulation perfusion secondary to the basilar artery stenosis, the patient was not a candidate for tPA and no tPA was given. 3.? Monitor PT and PTT's 4.? Continue Lipitor 40 mg p.o. q. evening as part of the poststroke prophylaxis 5.? Monitor CBC since the patient has a history of low red blood cell count and is on IV heparin 6.? Once patient is stable and heparin discontinued, recommend starting Plavix 75 mg p.o. every morning with food and aspirin 81 mg p.o. every morning with food 7.? Continue neurochecks per ICU stroke protocol 8.? Agree Blood work and lipid profile per ICU stroke protocol 9..? Consider repeat CT angiogram of the [place] and great vessels of the neck if needed 10.? The patient was encouraged to stop nonsteroidal anti-inflammatory medications (patient was taking nonsteroidal anti-inflammatory medications at home) 11.? We will continue to follow patient's neurological condition Attestations Medical Necessity Statement*: Patient was evaluated by neurology for code stroke and TIAs Coding Level of Care Code 32371 Diagnoses TIA (transient ischemic attack) G45.9 Basilar artery stenosis I65.1 Hx of transient ischemic attack involving posterior circulation Z86.73
[2022-12-10] MEDS: insulin lispro 100 unit/1 mL SUBCUT ×4 (08:57→20:48)
[2022-12-10] MEDS: metoprolol tartrate 25 mg Tablet PO ×2 (08:57→20:06)
[2022-12-10] MEDS: allopurinol 300 mg Tablet PO (08:57)
[2022-12-10] MEDS: aspirin 325 mg Tablet PO (08:57)
[2022-12-10 09:41] LABS: Partial Thromboplastin Time 56.6 SECONDS (23.9-36.7)
--- NOTE | 2022-12-10 10:26 | P.PN_ITS ---
Subjective Subjective: Patient reports he is doing well this morning. Denies any neurologic deficits. Does not believe his speech is slurred. Nursing has got him up to walk him and does not notice any deficits. Medications: Reviewed: Yes Vitals/I&O/Wt Last Vital Signs Temp 98.1 F 12/10/22 00:00 Pulse 79 12/10/22 06:00 Resp 0 L 12/10/22 06:00 BP 154/72 12/10/22 06:00 Pulse Ox 92 12/10/22 06:00 O2 Del Method Room Air 12/09/22 18:30 O2 Flow Rate 2 12/09/22 15:00 12/09/22 12/10/22 12/10/22 22:59 06:59 14:59 Intake Total 1273.218 / 1275.118 605.904 / 1881.022 360 / 360 Output Total 2049 / 2049 750 / 2800 650 / 650 Balance -776.782 / -774.882 -144.096 / -918.978 -290 / -290 Weight last 48 hrs Weight 104.326 kg Physical Exam Narrative: General exam no distress Neck is supple no lymphadenopathy thyromegaly Cardiovascular regular rate and rhythm, no murmur Lungs clear no wheezing or crackles Abdomen is soft with positive bowel sounds. No obvious organomegaly Extremities no cyanosis clubbing or edema, cap refill brisk Skin no rash Neuro no obvious focal deficits. Data 12/10/22 00:29 12/10/22 00:29 A&P Assessment and plan (1) TIA (transient ischemic attack): Patient presented with right hemispheric symptoms consisting of left hemiparesis and slurred speech. These have gone away quickly, representing a TIA. While in the emergency department there was concern of basilar artery symptoms, of recurrent slurred speech and at 1 point concern of some nystagmus by neurol ogic exam. There is concern of high-grade stenosis distal basilar artery and small amount of thrombus cannot be ruled out. Heparin was recommended by neurology and was initiated. Plan to continue this until tomorrow morning, then changed to Plavix and aspirin as long as no recurrent symptoms Continue statin Continue telemetry Await echocardiogram Appreciate neurology input Appreciate therapy consultations Decrease IV fluids Initiate low-dose beta-angelita secondary to concomitant chest discomfort. IV nitroglycerin has been discontinued MRI of head demonstrated question right cerebellar acute infarct versus artifact Will need event monitor on discharge. (2) Chest pain: Patient presented with TIA. He then complained of chest discomfort. Nitroglycerin drip was initiated. He is chest pain-free. Troponin show no concerning trend. Await echocardiogram Start low-dose beta-angelita Continue aspirin, anticoagulation, statin May need outpatient nuclear stress test (3) Type 2 diabetes mellitus: Sliding scale insulin will be initiated Hemoglobin A1c 7.4. 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 (5) Attention deficit disorder: Hold stimulant currently secondary to CVA, elevated blood pressure Plan Multiple other medical problems as outlined in past medical history Full code Heparin drip will suffice for DVT prophylaxis Attestations Medical Necessity Statement*: Needs continued hospital stay for close monitoring following TIA, with basilar artery thrombus and chest discomfort Diagnoses TIA (transient ischemic attack) G45.9 Chest pain R07.9 Type 2 diabetes mellitus E11.9 Pyruvate kinase (PK) deficiency anemia D55.21 Attention deficit disorder F98.8 Time Spent (min) 36
[2022-12-10 12:22] LABS: Glucose Point of Care 535 mg/dL (70-110)
[2022-12-10] MEDS: sodium chloride 0.9% 1,000 ML 75 ML IV (12:27)
[2022-12-10 16:50] LABS: Partial Thromboplastin Time 46.3 SECONDS (23.9-36.7)
[2022-12-10 16:55] LABS: Glucose Point of Care 407 mg/dL (70-110)
[2022-12-10 17:36] LABS: Glucose Point of Care 426 mg/dL (70-110)
[2022-12-10] MEDS: TRAMadol 50 mg Tablet PO (18:29)
[2022-12-10] MEDS: atorvastatin 40 mg Tablet PO (20:06)
[2022-12-10 20:21] LABS: Glucose Point of Care 215 mg/dL (70-110)
[2022-12-10] MEDS: heparin drip 25,000 UNIT/500 ML PREMIX 36.99 UNIT IV (20:25)
[2022-12-10 23:15] LABS: Partial Thromboplastin Time 49.1 SECONDS (23.9-36.7)
[2022-12-10] MEDS: heparin 5,000 unit/mL INJ 1 mL 2100 UNIT IVP (23:51)
[2022-12-11] VITALS (38 sets, daily range): BP systolic 128–212; BP diastolic 66–131; PULSE 68–90; RESP 10–20; TEMP 36.9–37.1; O2SAT 85–98
--- NOTE | 2022-12-11 00:15 | CTR_ITS ---
PROCEDURE INFORMATION: Exam: CT Head Without Contrast Exam date and time: 12/11/2022 12:34 AM Age: 57 years old Clinical indication: Pain; Headache not specified; Additional info: Previous stroke/ headache TECHNIQUE: Imaging protocol: Computed tomography of the head without contrast. Radiation optimization: All CT scans at this facility use at least one of these dose optimization techniques: automated exposure control; mA and/or kV adjustment per patient size (includes targeted exams where dose is matched to clinical indication); or iterative reconstruction. REPORTING DATA: Count of CT and Cardiac NM exams in prior 12 months: This patient has received 2 known CTs and 0 known cardiac nuclear medicine studies in the 12 months prior to the current study. COMPARISON: MR head wo con* [id number] 12/09/2022 4:31 PM RADIATION DOSE METRICS: Total DLP (mGy-cm): 1277.28 FINDINGS: Brain: There is an old infarct in the right cerebellar hemisphere. No evidence of intracranial hemorrhage, mass effect, midline shift or extra-axial fluid collections. Midline structures are normal. Gore-white matter differentiation is normal. Cerebral ventricles: No ventriculomegaly. Paranasal sinuses: Mucosal thickening in the ethmoid, sphenoid and maxillary sinuses. No fluid levels. Mastoid air cells: Visualized mastoid air cells are well aerated. Bones/joints: Unremarkable. No acute fracture. Soft tissues: Unremarkable. CT/CT head wo con* [id number] IMPRESSION: No acute intracranial abnormality.
--- NOTE | 2022-12-11 01:09 | PC.NURSE ---
Upon 1999 assessment noticed that patient's blood pressure was reading 171/88. Went and asked patient how he was feeling and he stated he still had a headache. Obtained blood pressure again at 2029: 190/111. Switched blood pressure cuffs out and different arms. Waited and checked it at 2099 : blood pressure: 195/129. 30 minutes later bp: 204/101. Switched cuffs out again and put blood pressure cuff to left forearm. Blood pressure reading 188/83 at 2200. 2200: Volated Dr Hernandez to inform her about patient's status at this time. Informed her that I have the patient in room 3 [address] and he was admitted yesterday for stroke like symptoms. I got here tonight and his blood pressure was elevated. I have switched the cuffs around on his arms and the best pressure I have gotten is 171/88 and that was earlier. I gave him his metoprolol 25mg tonight and his current pressure is 188/83. He does not have any PRN medications. His nitro drip was discontinued this morning. He is complaining of a headache and day shift gave him a tramadol 50mg at 1829. Dr Hernandez stated she would look into patient's chart at this time and get back with me. Dr Hernandez stated to allow permissive hypertension at this time. If it gets > 180/100 then we will lower it slightly. And to recheck again in 30 minutes. 2350: Informed her that his current pressure was 179/91 at this time. Informed her that patient has med surg orders at this time. Obtained telephone order to hold med surg transfer at this time till AM and we will reassess then. 0010: Informed Dr Hernandez that patient's head is still hurting. He states that the pain is a 5 out of 10. The pain is located across the top of his head. It is waking him up. I offered him the tramadol and he stated that it didn't help his pain earlier. I offered the tylenol 650 mg and he stated that it would not help his pain either. He shows no deficits at this time. Orders obtained at this time for Head CT STAT w/o contrast. 00:20 : pt was transported to CT at this time without any complaints or distress noted. Will continue to monitor and assess.
[2022-12-11 06:41] LABS: Basophils # 0.1 10^3/uL (0.0-0.1); Basophils % 0.8 %; Eosinophils # 0.5 10^3/uL (0.0-0.8); Eosinophils % 2.5 %; Hematocrit 31.3 % (42.0-52.0); Hemoglobin 9.4 g/dL (11.7-16.6); Lymphocytes # 4.3 10^3/uL (0.8-4.8); Lymphocytes % 23.6 %; Mean Corpuscular Hemoglobin 33.9 pg (28.0-34.0); Mean Platelet Volume 11.7 fL (7.4-10.4); Monocytes # 2.2 10^3/uL (0.2-0.9); Monocytes % 11.9 %; Neutrophils # 10.78 10^3/uL (1.8-7.7); Neutrophils % 59.4 %; Nucleated Red Blood Cells # 0.3 /100WBC; Nucleated Red Blood Cells % 1.7 %; Platelet Count 391 10^3/cmm (130-400); Red Blood Count 2.77 10^6/uL (4.1-5.3); Red Cell Distribution Width 14.6 % (12.1-15.1); White Blood Count 18.1 10^3/uL (4.0-10.0)
[2022-12-11 07:01] LABS: Anion Gap 14.1 (5-19); Blood Urea Nitrogen 16 mg/dL (6-20); Calcium 9.3 mg/dL (8.5-10.5); Carbon Dioxide 25 mmol/L (22-29); Chloride 105 mmol/L (98-107); Glomerular Filtration Rate 77.6 mL/min (90-130); Glucose 168 mg/dL (65-115); Osmolality Calculated 295 mOsm/kg (285-295); Potassium 4.1 mmol/L (3.5-5.1); Sodium 140 mmol/L (136-145)
[2022-12-11] MEDS: allopurinol 300 mg Tablet PO (08:11)
[2022-12-11] MEDS: aspirin 81 mg EC Tablet PO (08:11)
[2022-12-11] MEDS: lisinopril 10 mg Tablet PO (08:11)
[2022-12-11] MEDS: clopidogrel 75 mg Tablet PO (08:11)
[2022-12-11] MEDS: metoprolol tartrate 25 mg Tablet PO ×2 (08:12→20:23)
[2022-12-11 08:18] LABS: Glucose Point of Care 186 mg/dL (70-110)
[2022-12-11] MEDS: insulin lispro 100 unit/1 mL SUBCUT ×4 (08:18→21:10)
[2022-12-11] MEDS: HYDROcodone-acetaminophen 7.5-325 mg Tablet 1 TAB PO ×2 (08:45→17:46)
--- NOTE | 2022-12-11 09:53 | P.PN_ITS ---
Subjective Subjective: Patient reports she is doing well. Reports no weakness. Does have a headache right posterior occiput. Discussed case with neurology today. Medications: Reviewed: Yes Vitals/I&O/Wt Last Vital Signs Temp 98.5 F 12/11/22 04:00 Pulse 82 12/11/22 07:00 Resp 18 12/11/22 07:00 BP 196/84 12/11/22 07:00 Pulse Ox 95 12/11/22 07:00 O2 Del Method Room Air 12/09/22 18:30 O2 Flow Rate 2 12/09/22 15:00 12/10/22 12/11/22 12/11/22 22:59 06:59 14:59 Intake Total 1100.000 / 2700.000 240 / 2940.000 Output Total 600 / 1250 Balance 500.000 / 1450.000 240 / 1690.000 Weight last 48 hrs Weight 104.326 kg Physical Exam Narrative: General exam no distress Neck is supple no lymphadenopathy thyromegaly Cardiovascular regular rate and rhythm, no murmur Lungs clear no wheezing or crackles Abdomen is soft with positive bowel sounds. No obvious organomegaly Extremities no cyanosis clubbing or edema, cap refill brisk Skin no rash Neuro no obvious focal deficits. Data 12/11/22 06:30 12/11/22 06:30 A&P Assessment and plan (1) TIA (transient ischemic attack): Patient presented with right hemispheric symptoms consisting of left hemiparesis and slurred speech. These have gone away quickly, representing a TIA. While in the emergency department there was concern of basilar artery symptoms, of recurrent slurred speech and at 1 point concern of some nystagmus by neuro logic exam. There is concern of high-grade stenosis distal basilar artery and small amount of thrombus cannot be ruled out. Heparin was recommended by neurology and was initiated. Discontinue heparin today Initiate Plavix, aspirin Continue statin Continue telemetry Echo was essentially normal, no significant valvular disease and normal EF Appreciate neurology input Appreciate therapy consultations Discontinue IV fluids MRI of head demonstrated question right cerebellar acute infarct versus artifact Will need event monitor on discharge. CBC, BMP in the morning (2) Chest pain: Patient presented with TIA. He then complained of chest discomfort. Nitroglycerin drip was initiated. He is chest pain-free. Troponin show no concerning trend. Nitroglycerin was discontinued Echocardiogram normal EF with no wall motion abnormalities Continue low-dose beta-angelita Add lisinopril 10 mg a day secondary to persistently elevated blood pressure Continue aspirin, anticoagulation, statin May need outpatient nuclear stress test (3) Type 2 diabetes mellitus: Sliding scale insulin will be initiated Hemoglobin A1c 7.4. 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 (5) Attention deficit disorder: Hold stimulant currently secondary to CVA, elevated blood pressure Plan Multiple other medical problems as outlined in past medical history Full code Changed to Lovenox for DVT prophylaxis Attestations Medical Necessity Statement*: Needs continued hospitalization for close monitoring following transition to oral antiplatelet agents and close monitoring of headache. May transfer out of ICU. Diagnoses TIA (transient ischemic attack) G45.9 Chest pain R07.9 Type 2 diabetes mellitus E11.9 Pyruvate kinase (PK) deficiency anemia D55.21 Attention deficit disorder F98.8 Time Spent (min) 26
[2022-12-11 11:57] LABS: Glucose Point of Care 252 mg/dL (70-110)
[2022-12-11] MEDS: NON-FORMULARY MEDICATION (Galantamine 4 mg tablet) 8 EACH PO ×2 (12:02→17:47)
[2022-12-11] MEDS: enoxaparin 40 mg/0.4 mL Syringe SUBCUT (12:02)
--- NOTE | 2022-12-11 12:42 | PM.PN ---
Subjective Subjective: 57-year-old male with a history of remote right cerebellar stroke, hypertension and type 2 diabetes mellitus.? The patient was on lisinopril for hypertension and metformin for diabetes but patient reported that he lost weight and these medications were not continued.? The patient was brought to the hospital on secondary to reports of recurrent left-sided weakness involving his left lower face, left arm and left leg associated with slurred speech.? Patient blood pressure was significantly elevated with systolic blood pressure greater than 220 and elevated blood sugar greater than 300.? The patient was also complaining of chest pressure/pain.? Head CT scan without contrast revealed no acute findings.? CT angiogram of the head and neck revealed stenosis of the basilar artery just proximal to the basilar tip suggestive of a possible thrombus in this area.? The patient was started on IV nitroglycerin for blood pressure and chest pain by the attending ER physician and IV normal saline and insulin was administered for the elevated blood glucose.? The patient is NIH score =2 and later NIH =0.? Therefore, no tPA was administered.? And the patient was asymptomatic from the basilar artery stenosis.? After the patient had been in the ER for greater than 3 hours I was contacted to reevaluate the patient secondary to increasing recurrent episodes of slurred speech.? Repeat neurological examination revealed horizontal nystagmus on right lateral gaze associated with dysarthria.? There was concern that the patient may now be experiencing symptoms from the basilar artery stenosis.? [facility] stroke [facility] was contacted to determine if the patient was a candidate for basilar artery thrombectomy.? The [facility] facility stated the patient was not a candidate for thrombectomy.? Therefore I spoke with the family and the patient was started on IV heparin and transferred to the intensive care unit bed #3. The patient has been doing well with no further TIA episodes. He continues to complain of some generalized headache which he reports is not severe. He grades the pain a 3 to a 5 on a scale of 1-10 with 10 being the most severe. Patient describes the pain as a aching pain. Patient has been off Ritalin since admission secondary to his significantly elevated blood pressure and galantamine has not been continued since it is not on the formulary and the medicine was not brought to the hospital with the patient. I informed the patient that his headaches may be related to his hypertension but the possibility of withdrawal headaches from being off of the Ritalin and galantamine may also be either the calls or a contributing factor.? I recommended discontinuing tramadol and using Lorcet +1 p.o. every 6 hours as needed headaches along with diet caffeine and soda. Also recommended that the patient has his family to bring his galantamine from home so he can resume the medication. Past medical histo ry: Brainstem stro ke approximately 1 1 years ago Type 2 diabetes mellitus is treated with m etformin in the [facility] Hypertension tr eated with lisinop ril in the past Go uty arthritis Cur rent medications: Concerta Allopurin ol Galantamine for memory issues Non steroidal anti-inf lammatory medicati on (type unknown b y the patient) Dr galdamez allergies: None Past medications : Metformin, lisin opril Habits: ?No ne Family history : Negative for ben betes heart diseas e and hypertension Review of system s: The patient com plained of headach es, but denies vis ual difficulty, sp eech difficulty sw allowing difficult y dizziness weakne ss chest pain shor tness of breath ab dominal pain ? Vitals/I&O/Wt Last Vital Signs Temp 98.5 F 12/11/22 04:00 Pulse 82 12/11/22 07:00 Resp 18 12/11/22 07:00 BP 196/84 12/11/22 07:00 Pulse Ox 95 12/11/22 07:00 O2 Del Method Room Air 12/09/22 18:30 O2 Flow Rate 2 12/09/22 15:00 12/10/22 12/11/22 12/11/22 22:59 06:59 14:59 Intake Total 1100.000 / 2700.000 600.653 / 3300.653 1000 / 1000 Output Total 600 / 1250 Balance 500.000 / 1450.000 600.653 / 2050.653 1000 / 1000 Physical Exam Narrative: The patient is alert and oriented x3.? Speech fluent.? Head atraumatic.? Neck supple cranial nerves II through XII intact.? Pupils 3 mm round reactive to light and accommodation.? There were no nystagmus on extraocular movements.? Visual doe via confrontation appeared full.? Motor examination 5/5 bilaterally.? There was no ataxia.? Sensory exam intact to touch.? Plantar responses flexor bilaterally.? Heart regular rhythm extremities negative for clubbing or cyanosis Data 12/11/22 06:30 12/11/22 06:30 A&P Assessment and plan (1) Hx of transient ischemic attack involving posterior circulation: (2) Slurred speech: (3) Basilar artery stenosis: (4) TIA (transient ischemic attack): (5) Persistent headaches: Plan Assessment: 1.? Acute posterior circulation TIAs manifested as slurred speech with 1 brief episode of horizontal nystagmus on right lateral gaze that could not be reproduced on repeat examination, currently stable on IV heparin drip 2.? Acute recurrent right cerebral TIAs manifested as slurred speech, left lower facial weakness and left arm and left leg weakness most likely secondary to uncontrolled malignant hypertension and uncontrolled diabetes with blood sugar greater than 350 on admission, currently stable with improvement of the patient's blood pressure and blood glucose levels, stable 3.? History of remote right cerebellar infarctions most likely secondary to hypertension 3a. Headaches, possibly related to Ritalin and galantamine withdrawal 3b.? Chest pain, currently stable 4.? History of type 2 diabetes mellitus (treated with metformin in the past) 5.? History of hypertension (treated with lisinopril in the past), improving 6.? History of obstructive sleep apnea on CPAP 7.? History of splenectomy Plan: 1.? Agree with discontinuing IV heparin and starting Plavix 75 mg p.o. every morning and aspirin 81 mg p.o. every morning with food for basilar artery stenosis since the patient was reported not to be a candidate for thrombectomy 2.? NOTE: Since the patient has a past history of strokes and type 2 diabetes mellitus and when he presented to the emergency room on the morning of 12/09/2022 he was experiencing right hemisphere TIA symptoms manifested as slurred speech and left arm and left leg weakness and left lower facial weakness with an NIH score =2 with several repeat NIH= 0-1 and the afternoon posterior circulation symptoms that occur intermittently had an NIH score =1-2, and elevated blood pressure which had to remain at an elevated level with slow/gradual lowering of his blood pressure to assure adequate posterior circulation perfusion secondary to the basilar artery stenosis, the patient was not a candidate for tPA and no tPA was given. 3.? Monitor PT and PTT's, while on IV heparin 4.? Continue Lipitor 40 mg p.o. q. evening as part of the poststroke prophylaxis 5.? Monitor CBC since the patient has a history of low red blood cell count and the patient will be on Plavix and low-dose aspirin 6.?Continue neurochecks per ICU stroke protocol 7. The patient was encouraged to stop nonsteroidal anti-inflammatory medications (patient was taking nonsteroidal anti-inflammatory medications at home) 8.? We will continue to follow patient's neurological condition 9. Will recommend repeating CT angiogram of the head and neck to assess for any changes in the reported basilar artery thrombosis if needed Attestations Medical Necessity Statement*: The patient was seen by neurology secondary to code stroke and TIA episodes and basilar artery thrombosis and headaches Coding Level of Care Code 91955 Diagnoses Hx of transient ischemic attack involving posterior circulation Z86.73 Slurred speech R47.81 Basilar artery stenosis I65.1 TIA (transient ischemic attack) G45.9 Persistent headaches R51.9
--- NOTE | 2022-12-11 13:39 | PC.NURSE ---
Heart monitoring: Pt erformed ADLS with patches off, visitors came he requested a delay on reapplying the patches. His heart rhythm and rate have been WNL since admit to ICU.
[2022-12-11 17:36] LABS: Glucose Point of Care 247 mg/dL (70-110)
--- NOTE | 2022-12-11 18:36 | PC.NURSE ---
Shift summary: NO deficits noted today. Pt has complained of Headache, specifically when his SBP gets above 180. Family brought in home medications Galantamine. Hydrocodone started for pain today, He has received 2 doses. Pt is good-humored and a jokester. He had a nap this afternoon and his snoring respirations could be heard out at the nurses desk., his O2 sats maintained above 92% during the nap. HIs blood sugars have been elevated before every meal, insulin coverage required, see MAR. He has ate well. NO issues with his bowels or urination.
[2022-12-11] MEDS: atorvastatin 40 mg Tablet PO (20:23)
[2022-12-11 20:28] LABS: Glucose Point of Care 389 mg/dL (70-110)
[2022-12-12] VITALS (17 sets, daily range): BP systolic 151–194; BP diastolic 75–122; PULSE 71–78; RESP 12; O2SAT 89–97
[2022-12-12 04:04] LABS: Basophils # 0.1 10^3/uL (0.0-0.1); Basophils % 0.7 %; Eosinophils # 0.3 10^3/uL (0.0-0.8); Eosinophils % 2.3 %; Hematocrit 29.5 % (42.0-52.0); Hemoglobin 8.9 g/dL (11.7-16.6); Lymphocytes # 2.9 10^3/uL (0.8-4.8); Lymphocytes % 19.6 %; Mean Corpuscular HGB Conc 30.2 g/dL (30.0-36.0); Mean Corpuscular Hemoglobin 34.2 pg (28.0-34.0); Mean Corpuscular Volume 113.5 fl (80-94); Mean Platelet Volume 12.2 fL (7.4-10.4); Monocytes # 2.3 10^3/uL (0.2-0.9); Monocytes % 15.5 %; Neutrophils % 60.1 %; Nucleated Red Blood Cells # 0.3 /100WBC; Nucleated Red Blood Cells % 1.8 %; Platelet Count 379 10^3/cmm (130-400); Red Cell Distribution Width 14.7 % (12.1-15.1); White Blood Count 14.6 10^3/uL (4.0-10.0)
[2022-12-12 04:27] LABS: Anion Gap 12.1 (5-19); Blood Urea Nitrogen 16 mg/dL (6-20); Calcium 9.2 mg/dL (8.5-10.5); Carbon Dioxide 27 mmol/L (22-29); Chloride 105 mmol/L (98-107); Glomerular Filtration Rate 77.6 mL/min (90-130); Glucose 183 mg/dL (65-115); Osmolality Calculated 296 mOsm/kg (285-295); Potassium 4.1 mmol/L (3.5-5.1); Sodium 140 mmol/L (136-145)
[2022-12-12 07:49] LABS: Glucose Point of Care 209 mg/dL (70-110)
--- NOTE | 2022-12-12 08:11 | P.PN_ITS ---
Subjective Subjective: 57-year-old male with history of remote right cerebellar stroke, hypertension and type 2 diabetes treated with lisinopril and metformin in the past. According to the patient these medications were discontinued after he lost weight. The patient was admitted on 12/09/2022 secondary to recurrent left-sided weakness involving his left lower face, left arm and left leg associated with slurred speech.? Patient blood pressure was significantly elevated with systolic blood pressure greater than 220 and elevated blood sugar greater than 300.? The patient was also complaining of chest pressure/pain.? Head CT scan without contrast revealed no acute findings.? CT angiogram of the head and neck revealed stenosis of the basilar artery just proximal to the basilar tip suggestive of a possible thrombus in this area. Later in the afternoon the patient was experiencing more slurred speech and examination revealed some horizontal nystagmus on right lateral gaze. Since the symptoms were suggestive of posterior circulation stroke, the patient was started on IV heparin since patient was not a candidate for thrombectomy and IV nitroglycerin for significantly elevated blood pressure. The patient did well with no further TIA episodes after starting the IV heparin. Aggressive blood pressure management could not be performed since the patient had basilar artery stenosis secondary to a thrombus since there was concern regarding posterior cerebral artery perfusion related to the thrombus. The patient's blood pressure improved and IV nitroglycerin. The patient experienced recurrent blood pressure spikes and therefore he remained in the ICU bed #3. Since the patient was stable from his TIA episodes, Plavix 75 mg p.o. every morning with aspirin 81 mg p.o. every morning were started and IV heparin was discontinued. The patient's headaches were treated with hydrocodone 7.5/325 mg tablets 1 every 6 hours as needed along with a diet caffeine soda with improvement in his headaches. Prior to admission, the patient was on galantamine for some memory issues as well as Ritalin for energy/attention. Galantamine is not on the formulary at [facility] and therefore the patient was not receiving it during this admission and the Ritalin was discontinued secondary to the patient's malignant hypertension. I informed the patient that he may be experiencing withdrawal headaches as a result of these medications not being continued. I did recommend that the patient have his family bring the galantamine from home so that he can continue it during this hospitalization. This morning the patient reported that his headaches are much better. He rates the headache a 1-2 on a scale of 1-10 with 10 being the most severe. Neurologically patient is stable with no neurological deficits. Past medical histo ry: Brainstem stro ke approximately 1 1 years ago Type 2 diabetes mellitus is treated with m etformin in the [facility] Hypertension tr eated with lisinop ril in the past Go uty arthritis Nimco e medications: Con certa Allopurinol Galantamine for me danya issues Nonste roidal anti-inflam matory medication (type unknown by t he patient) Drug allergies: None P ast medications: M etformin, lisinopr il Habits: ?None Family history: N egative for diabet es heart disease a nd hypertension R eview of systems: The patient report s improvement in h eadaches. He mercedez es visual difficul ty, speech difficu lty swallowing dif ficulty dizziness weakness chest miller n shortness of nitin ath abdominal pain Vitals/I&O/Wt Last Vital Signs Temp 98.8 F 12/11/22 20:00 Pulse 75 12/12/22 06:00 Resp 13 12/11/22 23:00 BP 171/83 12/12/22 06:00 Pulse Ox 89 L 12/12/22 06:00 O2 Del Method Room Air 12/11/22 18:00 O2 Flow Rate 2 12/09/22 15:00 12/11/22 12/12/22 12/12/22 22:59 06:59 14:59 Intake Total 990 / 2590 200 / 2790 Output Total 750 / 2050 Balance 240 / 540 200 / 740 Physical Exam Narrative: The patient is alert and oriented x3.? Speech fluent.? Head atraumatic.? Neck supple cranial nerves II through XII intact.? Pupils 3 mm round reactive to light and accommodation.? There were no nystagmus on extraocular movements.? Visual doe via confrontation appeared full.? Motor examination 5/5 bilaterally.? There was no ataxia.? Sensory exam intact to touch.? Plantar responses flexor bilaterally.? Heart regular rhythm extremities negative for clubbing or cyanosis Data 12/12/22 03:08 12/12/22 03:08 A&P Assessment and plan (1) Persistent headaches: (2) Hx of transient ischemic attack involving posterior circulation: (3) Slurred speech: (4) Basilar artery stenosis: (5) TIA (transient ischemic attack): Plan 1.? Acute posterior circulation TIAs manifested as slurred speech with 1 brief episode of horizontal nystagmus on right lateral gaze that could not be reproduced on repeat examination, currently stable on Plavix and low-dose aspirin therapy 2.? Acute recurrent right cerebral TIAs manifested as slurred speech, left lower facial weakness and left arm and left leg weakness most likely secondary to uncontrolled malignant hypertension and uncontrolled diabetes with blood sugar greater than 350 on admission, currently stable with improvement of the patient's blood pressure and blood glucose levels, stable 3.? History of remote right cerebellar infarctions most likely secondary to hypertension 3a.? Headaches, possibly related to Ritalin and galantamine withdrawal, improved 3b.? Chest pain, currently stable 4.? History of type 2 diabetes mellitus (treated with metformin in the past) 5.? History of hypertension (treated with lisinopril in the past), improving 6.? History of obstructive sleep apnea on CPAP 7.? History of splenectomy Plan: 1.? Continue Plavix 75 mg p.o. every morning and aspirin 81 mg p.o. every morning with food for basilar artery stenosis since the patient was reported not to be a candidate for thrombectomy 2.? NOTE: Since the patient has a past history of strokes and type 2 diabetes mellitus and when he presented to the emergency room on the morning of 12/09/2022 he was experiencing right hemisphere TIA symptoms manifested as slurred speech and left arm and left leg weakness and left lower facial weakness with an NIH score =2 with several repeat NIH= 0-1 and the afternoon posterior circulation symptoms that occur intermittently had an NIH score =1-2, and elevated blood pressure which had to remain at an elevated level with slow/gradual lowering of his blood pressure to assure adequate posterior circulation perfusion secondary to the basilar artery stenosis, the patient was not a candidate for tPA and no tPA was given. 3.? Continue current treatment plan for headaches 4.? Continue Lipitor 40 mg p.o. q. evening as part of the poststroke prophylaxis 5.? Monitor CBC since the patient has a history of low red blood cell count and the patient will be on Plavix and low-dose aspirin 6.?Continue neurochecks per ICU stroke protocol 7. The patient was encouraged to stop nonsteroidal anti-inflammatory medications (patient was taking nonsteroidal anti-inflammatory medications at home) 8.? We will continue to follow patient's neurological condition 9.? Will recommend repeating CT angiogram of the head and neck to assess for any changes in the reported basilar artery thrombosis if needed 10. Patient stable from neurological standpoint for transfer from ICU Attestations Medical Necessity Statement*: Patient seen by neurology for TIA episodes, basilar artery stenosis, and headaches Coding Level of Care Code 95045 Diagnoses Persistent headaches R51.9 Hx of transient ischemic attack involving posterior circulation Z86.73 Slurred speech R47.81 Basilar artery stenosis I65.1 TIA (transient ischemic attack) G45.9
[2022-12-12] MEDS: clopidogrel 75 mg Tablet PO (08:19)
[2022-12-12] MEDS: allopurinol 300 mg Tablet PO (08:19)
[2022-12-12] MEDS: insulin lispro 100 unit/1 mL SUBCUT ×2 (08:19→12:20)
[2022-12-12] MEDS: aspirin 81 mg EC Tablet PO (08:19)
[2022-12-12] MEDS: metoprolol tartrate 25 mg Tablet PO (08:19)
[2022-12-12] MEDS: lisinopril 20 mg Tablet PO (08:19)
[2022-12-12] MEDS: NON-FORMULARY MEDICATION (Galantamine 4 mg tablet) 8 EACH PO (08:23)
--- NOTE | 2022-12-12 10:31 | PM.DCS ---
Discharge Providers Date of Admission: 12/09/22 14:53 Date of Discharge: December 12, 2022 Attending Provider at Admission: Brandi Becerril MD Attending Provider at Discharge: Brandi Becerril MD Primary Care Provider: Umair Milton Diagnoses at Discharge Discharge Diagnosis (1) Persistent headaches: Status: Acute (2) Hx of transient ischemic attack involving posterior circulation: Status: Acute (3) Slurred speech: Status: Acute (4) Basilar artery stenosis: Status: Acute (5) TIA (transient ischemic attack): Status: Acute Reason for Visit Reason for Visit: STROKE ALERT Hospital Course Hospital Course Mr. Plasencia is a 57-year-old white male who presented to the emergency department with history of significant left hemiparesis that resolved spontaneously. He had recurrent symptoms of some slurred speech, during his emergency department course. CT head demonstrated no acute findings. CTA was concerning for high-grade basilar artery stenosis, with a small amount of thrombus not being excluded. During his emergency department course he also had chest discomfort with his markedly elevated blood pressures. Neurology saw the patient promptly and determined he was not a candidate for tPA considering his NIHSS score. Anticoagulation in the form of heparin was initiated secondary to waxing and waning neurologic impairments with basilar artery stenosis with question of thrombus. Aspirin was initiated along with statin. Nitroglycerin was used to cautiously elevated markedly elevated pressure secondary to chest discomfort. Troponins were trended and not consistent with acute myocardial infarction. Echocardiogram demonstrated preserved EF, no significant valvular lesions. EKG did not denote any atrial fibrillation. MRI was performed which demonstrated small 3 mm acute infarct right cerebellum versus artifact(more likely according to reading). Repeat head CT was without abnormality. During his course of hospitalization he had significant improvement in slurred speech did not recur. He had no evidence of recurrence of left hemiparesis. Blood pressure medications were gradually added during his hospital stay for gradual reduction of blood pressure. He was also hydrated. By December 12 he was able to ambulate to the bathroom without significant symptoms. He had no recurrent chest pain. He was stable to go home from a medicine a neurologic standpoint. Outpatient you will be on a diabetic diet, and initiate metformin secondary to elevated A1c. He will continue statin, as well as aspirin and Plavix which he was converted to days prior to discharge from heparin. He will be discharged with an event monitor. He will also get an outpatient stress test in 2 weeks after he has had a chance to recover from his neurologic event. He will follow-up with cardiology, neurology, and his primary care provider. He was given an opportunity to ask questions, and agreed with the plan. Physical Exam Narrative: General exam no distress Neck is supple Cardiovascular regular rate and rhythm, no murmur Lungs clear Abdomen is soft, obese Extremities no cyanosis clubbing or edema Neuro no focal deficits Discharge Data Studies Completed and Pending Completed Studies During Hospitalization Category Date Time Status CT angio headneck* [id number] Stat Cat Scan 12/09/22 08:[address] head thrombolytic [id number] Stat Cat Scan 12/09/22 08:[address] head wo con* [id number] Stat Cat Scan 12/11/22 00:15 Completed MR head wo con* [id number] Routine MRI 12/09/22 14:53 Completed CV. echo complete* [id number] Routine Ultrasound 12/09/22 14:28 Completed Radiology Impressions Head/Neck CTA 12/09/22 08:52 IMPRESSION: 1. Less than 50% ICA stenosis bilaterally. 2. Short segment high-grade stenosis in the distal basilar artery just proximal to the basilar tip is new from previous. This may be due to a small amount of thrombus. Distal most basilar tip is patent. Persistent RIGHT SUPERVISOR CARTOGRAPHY with normal vascularity to the SUPERVISOR CARTOGRAPHY territory bilaterally. 3. Both ICAs are patent at the skull base. Normal vascularity to the RADHA and MCA territories bilaterally. 4. RIGHT dominant vertebral artery unchanged from previous Notified Olayinka Shoemaker DO at 12/09/2022 9:57 AM. Head MRI 12/09/22 14:53 IMPRESSION: There is a solitary axial image concerning for a 3 mm acute infarct in the right cerebellum on only 1 series, however, this is suspected to be artifact as described above. No additional acute abnormality. ADDENDUM: 12/09/22 182 THIS REPORT CONTAINS FINDINGS THAT MAY BE CRITICAL TO PATIENT CARE. The findings were verbally communicated via telephone conference with BRANDI BECERRIL at 6:19 PM CDT on 12/09/2022. The findings were acknowledged and understood. Head CT 12/11/22 00:15 IMPRESSION: No acute intracranial abnormality. Laboratory Results WBC 14.6 10^3/uL (4.0-10.0) H 12/12/22 03:08 RBC 2.60 10^6/uL (4.1-5.3) L 12/12/22 03:08 Hgb 8.9 g/dL (11.7-16.6) L 12/12/22 03:08 Hct 29.5 % (42.0-52.0) L 12/12/22 03:08 MCV 113.5 fl (80-94) H 12/12/22 03:08 MCH 34.2 pg (28.0-34.0) H 12/12/22 03:08 MCHC 30.2 g/dL (30.0-36.0) 12/12/22 03:08 RDW 14.7 % (12.1-15.1) 12/12/22 03:08 Plt Count 379 10^3/cmm (130-400) 12/12/22 03:08 MPV 12.2 fL (7.4-10.4) H 12/12/22 03:08 Neut % (Auto) 60.1 % 12/12/22 03:08 Lymph % (Auto) 19.6 % 12/12/22 03:08 [place] % (Auto) 15.5 % 12/12/22 03:08 Eos % (Auto) 2.3 % 12/12/22 03:08 Baso % (Auto) 0.7 % 12/12/22 03:08 Neut # (Auto) 8.80 10^3/uL (1.8-7.7) H 12/12/22 03:08 Lymph # (Auto) 2.9 10^3/uL (0.8-4.8) 12/12/22 03:08 [place] # (Auto) 2.3 10^3/uL (0.2-0.9) H 12/12/22 03:08 Eos # (Auto) 0.3 10^3/uL (0.0-0.8) 12/12/22 03:08 Baso # (Auto) 0.1 10^3/uL (0.0-0.1) 12/12/22 03:08 Nucleated RBC % (auto) 1.8 % 12/12/22 03:08 Nucleated RBCs # 0.3 /100WBC 12/12/22 03:08 PT 12.40 SECONDS (12.1-14.9) 12/09/22 09:30 INR 0.90 (0.8-1.2) 12/09/22 09:30 APTT 49.1 SECONDS (23.9-36.7) H 12/10/22 22:30 Sodium 140 mmol/L (136-145) 12/12/22 03:08 Potassium 4.1 mmol/L (3.5-5.1) 12/12/22 03:08 Chloride 105 mmol/L (98-107) 12/12/22 03:08 Carbon Dioxide 27 mmol/L (22-29) 12/12/22 03:08 Anion Gap 12.1 (5-19) 12/12/22 03:08 BUN 16 mg/dL (6-20) 12/12/22 03:08 Creatinine 1.0 mg/dL (0.7-1.2) 12/12/22 03:08 GFR Calculation 77.6 mL/min (90-130) L 12/12/22 03:08 Glucose 183 mg/dL (65-115) H 12/12/22 03:08 POC Glucose 209 mg/dL (70-110) H 12/12/22 07:37 Estimat Average Glucose 166 12/10/22 00:29 Hemoglobin A1c 7.4 % (4.0-6.0) H 12/10/22 00:29 Calculated Osmolality 296 mOsm/kg (285-295) H 12/12/22 03:08 Calcium 9.2 mg/dL (8.5-10.5) 12/12/22 03:08 Total Bilirubin 1.0 mg/dL (0.15-1.2) 12/10/22 00:29 AST 16 U/L (0-40) 12/10/22 00:29 ALT 21 U/L (0-41) 12/10/22 00:29 Alkaline Phosphatase 81 U/L (40-130) 12/10/22 00:29 Troponin T Baseline 22 ng/L (0-15) H 12/09/22 10:43 Troponin T 120 Minute 22.86 ng/L (0-15) H 12/09/22 12:54 Delta Troponin T 0.86 ABS# (0-10) 12/09/22 12:54 Troponin T Hi Sens 6Hr 19.95 ng/L (0-15) H 12/09/22 17:00 Troponin T Hi Sens 6Hr Delta -2.05 ng/L (0-12) L 12/09/22 17:00 Total Protein 6.2 g/dL (6.6-8.7) L 12/10/22 00:29 Albumin 3.5 g/dL (3.5-5.2) 12/10/22 00:29 Globulin 2.7 g/dL (1.3-4.6) 12/10/22 00:29 Triglycerides 177 mg/dL (0-150) H 12/10/22 00:29 Cholesterol 207 mg/dL (0-200) H 12/10/22 00:29 LDL Cholesterol, Calc 127 mg/dL (50-129) 12/10/22 00:29 HDL Cholesterol 45 mg/dL (60-100) L 12/10/22 00:29 LDL/HDL Ratio 2.82 RATIO (0.00-3.22) 12/10/22 00: Cholesterol/HDL Ratio 4.60 mg/dL (1.0-5.00) 12/10/22 00:29 Vitamin B12 520 pg/mL (232-1245) 12/09/22 09:30 Folate 11.2 ng/mL (4.5-32.2) 12/09/22 09:30 TSH 1.41 uIU/mL (0.27-4.20) 12/09/22 09:30 Urine Color Straw (Yellow) 12/09/22 09:50 Urine Appearance Clear (CLEAR) 12/09/22 09:50 Urine pH 6.5 (5-7) 12/09/22 09:50 Ur Specific [place] 1.010 (1.005-1.030) 12/09/22 09:50 Urine Protein Neg (Negative) 12/09/22 09:50 Urine Glucose (UA) 4+ (Normal) H 12/09/22 09:50 Urine Ketones Negative (Negative) 12/09/22 09:50 Urine Blood Neg (Negative) 12/09/22 09:50 Urine Nitrate Negative (Negative) 12/09/22 09:50 Urine Bilirubin Neg (Negative) 12/09/22 09:50 Urine Urobilinogen Norm mg/dL (Negative) 12/09/22 09:50 Ur Leukocyte Esterase Negative (Negative) 12/09/22 09:50 Urine Opiates Screen Negative ng/mL (Negative) 12/09/22 09:50 Ur Barbiturates Screen Negative ng/mL (Negative) 12/09/22 09:50 Ur Phencyclidine Scrn Negative ng/mL (Negative) 12/09/22 09:50 Ur Amphetamines Screen Negative ng/mL (Negative) 12/09/22 09:50 U Benzodiazepines Scrn Negative ng/mL (Negative) 12/09/22 09:50 Urine Cocaine Screen Negative ng/mL (Negative) 12/09/22 09:50 U Marijuana (THC) Screen Negative ng/mL (Negative) 12/09/22 09:50 Serum Ketones Negative (Negative) 12/09/22 09:30 Vitals Last Vital Signs Temp 98.8 F 12/11/22 20:00 Pulse 75 12/12/22 06:00 Resp 13 12/11/22 23:00 BP 171/83 12/12/22 06:00 Pulse Ox 89 L 12/12/22 06:00 O2 Del Method Room Air 12/11/22 18:00 O2 Flow Rate 2 12/09/22 15:00 Discharge Plan Discharge Patient Disposition: Home Condition: Stable Prescriptions: New metoprolol tartrate 25 mg Tablet 25 mg PO BID@0900,2100 Qty: 60 0RF aspirin 81 mg Tablet,Delayed Release (Dr/Ec) 81 mg PO DAILY Qty: 30 0RF lisinopril 20 mg Tablet 20 mg PO DAILY Qty: 30 0RF atorvastatin 40 mg Tablet 40 mg PO BEDTIME Qty: 30 0RF clopidogrel 75 mg Tablet 75 mg PO DAILY Qty: 30 0RF metformin 500 mg tablet 500 mg PO BID Qty: 60 0RF Continued allopurinol 300 mg tablet 300 mg PO DAILY galantamine 8 mg tablet 8 mg PO BID 90 Days Qty: 180 0RF Rx Instructions: administer with AM and PM meals methylphenidate HCl [Concerta] 54 mg tablet extended release 24hr 54 mg PO QAM 30 Days Qty: 30 0RF Rx Instructions: Take 1 tablet in the morning Discontinued methylphenidate HCl [Concerta] 54 mg tablet extended release 24hr 54 mg PO QAM 30 Days Qty: 30 0RF Rx Instructions: DO NOT FILL UNTIL 01/03/2023 methylphenidate HCl [Concerta] 54 mg tablet extended release 24hr 54 mg PO QAM 30 Days Qty: 30 0RF Rx Instructions: DO NOT FILL UNTIL 02/02/2023 Discharge Orders: Discharge Order (Routine); Ordered 12/12/22 Ordered By: Brandi Becerril Other Ambulatory Orders: Sestamibi Stress Test Request (Routine) Timeframe: 2 Weeks Facility: [facility] - Location: Cardiac Diagnostic Laboratory Ordered By: Brandi Becerril MCT/Event Monitor 21 Days (Routine) Timeframe: 1 Day Facility: [facility] - Location: Radiology Ordered By: Brandi Becerril Referrals: Scott Kingston MD [Physician] - 7-10 days Trey Mcdaniel M.D [Physician] - 1 month (Follow u p HTN, history of chest pain, stress test as outpatient ordered) Umair Milton MD [Primary Care Provider] - 4-7 days Discharge Diet: Cardiac and Diabetic Discharge Activity: Increase activity as tolerated Patient Instructions: Opioid Safety Activity Restrictions/Additional Instructions: Take all medicine as prescribed Event monitor on discharge Secondary to chest pain you had on admission, in approximately 2 weeks a nuclear stress test will be done after you have had time to recover from your neurologic event If you have any bleeding, blood in stool, black or tarry stools please let neurology know Take all medicine as prescribed Follow consistent carb diet Follow-up with Dr. Milton in 4 to 7 days, Dr. Kingston in 1 to 2 weeks, cardiology in 1 month Patient's Health Concerns: Strokelike symptoms Assessment: TIA Plan of Treatment: Plavix, aspirin, statin Control of blood pressure Discharge Attestations Time Spent in Discharge Care*: greater than 30 min Quality Metrics Clinical Quality Measures [ Cerebrovascular Accident { Contraindication to Antithrombotic: None; antithrombotic prescribed; Contraindication to Anticoagulation: Other (not indicated); Contraindication to Statin: None; Statin prescribed; Reason stroke education not provided: Stroke education provided to patient;}] Coding Level of Care Code 59504 Total time (in minutes) for Discharge: 42 Diagnoses Persistent headaches R51.9 Hx of transient ischemic attack involving posterior circulation Z86.73 Slurred speech R47.81 Basilar artery stenosis I65.1 TIA (transient ischemic attack) G45.9
[2022-12-12] MEDS: enoxaparin 40 mg/0.4 mL Syringe SUBCUT (10:51)
[2022-12-12 10:58] LABS: Glucose Point of Care 165 mg/dL (70-110)
--- NOTE | 2022-12-12 13:37 | PC.NURSE ---
Discharge instructions given to patient. Prescriptions sent to Pharmacy. Patient walked to private vehicle accompanied by this nurse. Friend driving. Belongings with patient.
== END 2022-12-12 13:40 | disposition home or self-care (01) | DRG 65 ==
LOC: ER 09:13 → ICU 16:02
PROVIDERS: Admitting Provider Internal Medicine; Emergency Provider Family Medicine; PCP Family Medicine; Visit Provider Internal Medicine
DX: I63.22 Cerebral infarction due to unspecified occlusion or stenosis of basilar artery (principal); G81.94 Hemiplegia, unspecified affecting left nondominant side; R47.81 Slurred speech; R29.702 NIHSS score 2; E11.65 Type 2 diabetes mellitus with hyperglycemia; I10 Essential (primary) hypertension; Z86.73 Personal history of transient ischemic attack (TIA), and cerebral infarction without residual deficits; E78.5 Hyperlipidemia, unspecified; G47.33 Obstructive sleep apnea (adult) (pediatric); Z96.642 Presence of left artificial hip joint; Z90.81 Acquired absence of spleen; M10.9 Gout, unspecified; F98.8 Other specified behavioral and emotional disorders with onset usually occurring in childhood and adolescence; G44.40 Drug-induced headache, not elsewhere classified, not intractable; T43.636A Underdosing of methylphenidate, initial encounter; Z91.138 Patient's unintentional underdosing of medication regimen for other reason; T44.0X6A Underdosing of anticholinesterase agents, initial encounter
CPT/HCPCS: 36415; 36416; 70450; 70496; 70498; 70551; 80048; 80053; 80061; 80306; 81003; 82009; 82607; 82746; 82962; 83036; 84443; 84484; 85025; 85610; 85730; 92523; 92610; 93005; 93306; 96365; 96366; 96372; 96375; 96376; 97161; 97165; 99291; J1644; J1650; J1815; J2060; J3490; J7030; Q9967

== ENCOUNTER → 2023-01-20 14:24 | Outpatient (BNVA) | payer OTHER, SELFPAY | PROVIDERS: PCP Family Medicine; Visit Provider Internal Medicine | DX: R07.9 Chest pain, unspecified (principal) | CPT/HCPCS: 93005 ==

== ENCOUNTER 2023-02-14 09:32 | Outpatient (CLI) | payer OTHER, SELFPAY ==
--- NOTE | 2023-02-14 09:30 | MR_ITS ---
WS: [id number] MRA HEAD TECHNIQUE: Axial 3-D TOF images obtained with axial images and axial, sagittal, and coronal 2-D refor matted images. CLINICAL INFORMATION: G45.9 - Transient cerebral ischemic attack, unspecified COMPARISON: CT December 11, 2022. MRI December 09, 2022 FINDINGS: Dominant distal LEFT vertebral artery. Basilar artery appears patent today. Previously described fill ing defect in the distal basilar artery is not seen today. Normal basilar tip. 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 Normal vascularity to the MECHANICAL SYSTEMS CONTROL ENGINEER territory bilaterally. Both ICAs are patent at the skull base. Patent anterior communicating artery. Normal vascularity to t he RADHA and MCA territories bilaterally. No evidence of high-grade proximal flow limiting stenosis or aneurysm. 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 MR/MR angio head wo con [id number] IMPRESSION: 1. Previously described filling defect in the distal basilar artery not seen t yony. Normal filling of the distal basilar artery and basilar tip . 2. 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 Normal vascularity to the MECHANICAL SYSTEMS CONTROL ENGINEER territory bilater ally. 3. Normal vascularity to the RADHA and MCA territories bilaterally. 4. No evidence of flow-limiting stenosis or aneurysm.
== END 2023-02-14 09:33 | disposition home or self-care (01) ==
PROVIDERS: PCP Family Medicine; Visit Provider Specialist
DX: G45.9 Transient cerebral ischemic attack, unspecified (principal)
CPT/HCPCS: 70544

== ENCOUNTER 2023-03-07 08:17 | Outpatient (CLI) | payer OTHER, SELFPAY ==
[2023-03-07 08:36] VITALS: BMI 33.5
--- NOTE | 2023-03-07 08:47 | NMCV_ITS ---
NM tree perf SPECT r/s* [id number] Ernie Plasencia Age: 57 Gender: M : 1965 Exam Date: 03/07/2023 09:13 Ordering Phys: Trey Mcdaniel M.D ([email or web address]) Technologist: SUDHA Smith Exam Location: [facility] Indications: CHEST PAIN STRESS TEST Please [facility] IMAGE PROTOCOL Rest/Stress 1 Lexiscan Day Radiopharmaceutical Dose (mCi) Administration Site Administered by Rest: Tc-99m 11.0 IV SUDHA Smith Sestamibi Stress:Tc-99m 33.0 IV SUDHA Arredondo Sestamibi Rest: 07-Mar-2023 60 Discovery 630 Stress: 07-Mar-2023 30 Discovery 630 0.4mg Lexiscan. Images obtained in supine and prone position. SPECT RESULTS Technical Quality: Excellent Raw Data Analysis: Normal Image Corrections: Patient motion artifact - motion correction applied Summed Stress Score: 7 Summed Rest Score: 4 Summed Difference Score: 4 PERFUSION FINDINGS There is a small sized fixed perfusion defect noted in anterolateral wall. There is small to medium sized mostly reversible perfusion defect noted in inferior wall. This is consistent with small to medium sized prior infarct with kwesi-infarct ischemia. FUNCTIONAL RESULTS (calculated via Gated SPECT) Stress Image LV EF (%): 50 Stress EDV (mL):162 TID: 1.18 Stress ESV (mL):81 FUNCTIONAL FINDINGS: There is normal left ventricular systolic function. IMPRESSIONS 1. Small to medium sized area of prior infarct with kwesi-infarct ischemia seen in the RCA territory 2. LV systolic function is normal Trey Mcdaniel MD (Electronically Signed) Final Date: 09 March 2023 11:33 S
--- NOTE | 2023-03-07 08:47 | ECG_ITS ---
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 Interpretive Statements NAME OF STUDY: LEXISCAN SESTAMIBI STRESS TEST INDICATION: [Chest Pain, ] Procedure: At the baseline, the blood pressure was 152/63 mmHg with a heart rate of 85 bpm. The electrocardiogram at baseline artifact. The Lexiscan was infused over a period of 20 seconds. A total of 0.4 mg of Lexiscan was infused. The stress phase was continued for a total of 5 minutes. Heart rate was at the end of stress phase was 91 bpm and a blood pressure of 156/81 mmHg. The EKG at the peak infusion revealed normal sinus rhythm with no significant ST-T wave changes. Sestamibi was injected 20 seconds after the Lexiscan infusion. Blood pressure at the end of recovery phase was 154/69 mmHg with a heart rate of 87 bpm. Conclusion: 1. Normal EKG response to Lexiscan infusion 2. No Lexiscan induced chest pain or cardiac arrhythmia. 3. Normal blood pressure and heart rate response. 4. Sestamibi/sestamibi perfusion scan pending; see separate report. Electronically Signed On 03-25-2023 11:05:47 CDT by Trey Mcdaniel M.D. [email or web address]
[2023-03-07] MEDS: regadenoson 0.4 Mg/5 ml Syringe IVP (10:08)
[2023-03-07 10:24] VITALS: BP 154/69; PULSE 86
== END 2023-03-07 08:18 | disposition home or self-care (01) ==
LOC: CDL 08:18
PROVIDERS: PCP Nurse Practitioner Family; Visit Provider Internal Medicine
DX: R07.9 Chest pain, unspecified (principal)
CPT/HCPCS: 36415; 78452; 93017; 96375; A9500; J2785

== ENCOUNTER 2023-12-18 18:56 | Inpatient (IN) | payer OTHER, SELFPAY ==
[2023-12-18] VITALS (11 sets, daily range): BP systolic 113–160; BP diastolic 62–107; PULSE 114–173; RESP 11–25; TEMP 36.9; O2SAT 90–96; BMI 34.2
--- NOTE | 2023-12-18 19:07 | XRR_ITS ---
PROCEDURE INFORMATION: Exam: XR Chest Exam date and time: 12/18/2023 8:19 PM Age: 58 years old Clinical indication: Other: Increased hr; Additional info: Palpitations TECHNIQUE: Imaging protocol: Radiologic exam of the chest. Views: 1 view. COMPARISON: CT angio headneck* [id number] 12/09/2022 8:53 AM FINDINGS: Lungs: No focal consolidation. Elevation of the left hemidiaphragm with left basilar subsegmental atelectasis. Pleural spaces: No evidence of pneumothorax. No evidence of pleural effusion. Heart/Mediastinum: Cardiomediastinal silhouette is within normal limits. Bones/joints: No evidence of acute osseous abnormality. XR/XR chest 1V [id number] IMPRESSION: 1. No acute cardiopulmonary abnormality.
--- NOTE | 2023-12-18 19:07 | ECG_ITS ---
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 Measurements Intervals [place] Rate: 169 P: 0 WV: 0 QRS: 33 QRSD: 90 T: 212 QT: 246 QTc: 414 Interpretive Statements SUPRAVENTRICULAR TACHYCARDIA NONSPECIFIC ST & T-WAVE ABNORMALITY CRITICAL TEST RESULT Compared to ECG 01/20/2023 14:36:48 T-wave abnormality now present Sinus rhythm no longer present Left ventricular hypertrophy no longer present ST (T wave) deviation no longer present Electronically Signed On 12-19-2023 0:09:09 CDT by Sera Benjamin M.D. [email or web address]
--- NOTE | 2023-12-18 19:15 | W.ED.ARRPALP ---
HPI - Arrhythmia/Palpitations General: Chief Complaint: Arrhythmia/Palpitations Stated Complaint: 170+ hr resting over 24 hours Urgent care sent Time Seen by Provider: 12/18/23 19:05 History of Present Illness: 58-year-old man with a history of CVA on Plavix, hyperlipidemia, hypertension, diabetes but is on no medications, and gout who was sent from urgent care with tachycardia. EKG there had read SVT. His rate on presentation here is 170. He says he is been completely asymptomatic. He is not short of breath. No leg swelling. No chest pain. He has not even felt palpitations. No fevers. No dysuria. No abdominal pain. No nausea or vomiting. No diaphoresis. He had gone to urgent care because he had checked his blood pressure and his blood pressure machine told him that his heart rate was elevated. Review of Systems Narrative: Constitutional symptoms: Negative except as documented in HPI. Skin symptoms: Negative except as documented in HPI. Eye symptoms: Negative except as documented in HPI. ENMT symptoms: Negative except as documented in HPI. Respiratory symptoms: Negative except as documented in HPI. Cardiovascular symptoms: Negative except as documented in HPI. Gastrointestinal symptoms: Negative except as documented in HPI. Genitourinary symptoms: Negative except as documented in HPI. Musculoskeletal symptoms: Negative except as documented in HPI. Neurologic symptoms: Negative except as documented in HPI. Psychiatric symptoms: Negative except as documented in HPI. Endocrine symptoms: Negative except as documented in HPI. PFSH ED PFSH: Medical History Obstructive sleep apnea Hyperlipidemia Type 2 diabetes mellitus Gout Hx of ischemic vertebrobasilar artery brainstem stroke (2012) Hypertension Pyruvate kinase (PK) deficiency anemia Surgical History History of colonoscopy (2014) History of bone marrow biopsy (01/07/14) Bone marrow aspiration and biopsy at [facility] H/O knee surgery Left knee cap repair - JAVON Taylor - Dr. 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 Daughter Anesthesia complication Mother Cancer Lung Other Diabetes Hyperlipidemia Hypertension Stroke Denies family history of CAD (coronary artery disease) Clotting disorder Dementia Psychiatric illness Chronic kidney disease (CKD) Suicide Bleeding disorder Lung disease Social History Smoking and tobacco/nicotine status: never used tobacco/nicotine Alcohol intake: never Substance/Drug Use: never service: Yes Physical Exam Narrative: EXAM NARRATIVE: General: Alert, no acute distress. Skin: Warm, dry. Head: Normocephalic, atraumatic. Neck: Supple, trachea midline. Eye: Extraocular movements are intact. Ears, nose, mouth and throat: mucosa moist. Cardiovascular: Tachycardic, Normal peripheral perfusion. Respiratory: Lungs are clear to auscultation, respirations are non-labored, breath sounds are equal, Symmetrical chest wall expansion. Gastrointestinal: Soft, Nontender, Non distended, Normal bowel sounds. Musculoskeletal: Normal ROM, no deformity. Neurological: Alert and oriented, No focal neurological deficit observed. Psychiatric: Cooperative, appropriate mood & affect. Course Vital Signs: Vital signs: Vital Signs Temperature 98.4 F 12/18/23 19:07 Pulse Rate 142 H 12/18/23 19:45 Respiratory Rate 12 12/18/23 19:20 Blood Pressure 160/107 12/18/23 19:30 Pulse Oximetry 92 12/18/23 19:45 Oxygen Delivery Me thod Room Air 12/18/23 19:45 MDM - Arrhythmia/Palpitations Medical Decision Making Medical decision making: Differential diagnosis including but not limited to and based on the above HPI, review of systems and physical exam: for patient with tachycardia: atrial fibrillation with rapid ventricular response. ventricular tachycardia. sinus tachycardia. PVCs. also concern for underlying issues causing tachycardia. Infection, electrolyte abnormalities and thyroid issues Orders placed to evaluate differential diagnosis based on the above differential, HPI and physical exam EKG: Time 1858 rate 169. SVT possible but more likely atrial fibrillation or flutter with rapid ventricular response, No ST-T changes, no ectopy, This was reviewed and interpreted by myself the ER physician at 1900 Chest x-ray: No acute process. No infiltrate. No pneumothorax. Patient has cardiomegaly. No signs of heart failure. Somehow he has never had a chest x-ray done with all the other imaging he has not had done here.. This was reviewed and interpreted by myself the ER physician. My initial suspicion was this was atrial fibrillation with rapid ventricular response, however his blood pressure was slightly soft and for diagnostic as well as treatment purposes a cardioversion was done with adenosine. 6 mg he did slow down quite a bit and was obviously in atrial flutter at that time. Procedure: Chemical cardioversion. Time: 1921 Confirmed: Patient, procedure, and site correct. Consent: Patient. Indication: SVT Monitoring: Cardiac, blood pressure, continuous pulse oximetry. Technique: 6 mg IV adenosine. Post procedure exam: Patient slowed briefly and flutter was evident on tracings. He then went and went back to a rate of 160s. Complications: None. Performed by: Self. Total time: 10 minutes. Lab Review: Laboratory results were reviewed and interpreted by myself the emergency room physician. White count is 15,000. Hemoglobin is 9.2. He has a macrocytic anemia so I have sent off a B12 and a folate. Platelets were 483. Potassium is 4.5. Sodium 136. BUN and creatinine are 33 and 1.6 with a glucose of 245. His creatinine is up some from previous. I think this is from untreated hyperglycemia and dehydration. His initial troponin is 65. His mag is 1.7 and so IV magnesium was given. His TSH is 1.8. Repeat EKG: Time 2036 rate 115 atrial flutter with rapid rate, No ST-T changes, no ectopy, This was reviewed and interpreted by myself the ER physician at 2039. Rate has slowed considerably from previous and now obviously in flutter. I reviewed the patient's medical record. Consultation: I spoke with Dr. Sheffield about the patient and he agrees to admission to the stepdown. Reexamination: Patient remains in no distress. His rate has come down quite a bit and has been between 105 and 120. No increased work of breathing. No altered mental status. No focal motor deficits. Assessment and plan: Atrial flutter with rapid ventricular response Hyperglycemia Dehydration Acute renal insufficiency Type 2 diabetes mellitus -Cardioversion was diagnostic. Patient in flutter. -1.5 L normal saline bolus. -10 mg IV diltiazem push and 10 mg/h drip. Rate is improving. -I discussed the patient with the hospitalist on-call who is admitting the patient. - Discussed findings and plan with patient. Answered any questions. - All laboratory values were reviewed and interpreted personally by myself, the ER physician - All imaging was reviewed and interpreted personally by myself, the ER physician. - Evaluation and treatment of this problem were appropriate in the emergency setting -I spent a total of >35 minutes of critical care time managing the patient, independent of any other practitioner. -The time involved in the performance of separately reportable procedures was not counted towards critical care time. Lab Data 12/18/23 19:14 12/18/23 19:14 Laboratory Results WBC 14.81 10^3/uL (3.29-11.43) H 12/18/23 19:14 RBC 2.65 10^6/uL (3.85-5.65) L 12/18/23 19:14 Hgb 9.20 g/dL (11.27-16.99) L 12/18/23 19:14 Hct 28.3 % (37-53) L 12/18/23 19:14 MCV 106.8 fl (82-101) H 12/18/23 19:14 MCH 34.7 pg (27-33) H 12/18/23 19:14 MCHC 32.5 g/dL (30-55) 12/18/23 19:14 RDW 15.0 % (12.1-15.1) 12/18/23 19:14 Plt Count 433 10^3/cmm (157-399) H 12/18/23 19:14 MPV 11.7 fL (7.4-10.4) H 12/18/23 19:14 Neut % (Auto) 54.0 % 12/18/23 19:14 Lymph % (Auto) 28.4 % 12/18/23 19:14 [place] % (Auto) 13.0 % 12/18/23 19:14 Eos % (Auto) 2.3 % 12/18/23 19:14 Baso % (Auto) 0.9 % 12/18/23 19:14 Neut # (Auto) 8.00 10^3/uL (1.8-7.7) H 12/18/23 19:14 Lymph # (Auto) 4.2 10^3/uL (0.8-4.8) 12/18/23 19:14 [place] # (Auto) 1.9 10^3/uL (0.2-0.9) H 12/18/23 19:14 Eos # (Auto) 0.3 10^3/uL (0.0-0.8) 12/18/23 19:14 Baso # (Auto) 0.1 10^3/uL (0.0-0.1) 12/18/23 19:14 Nucleated RBC % (auto) 1.1 % 12/18/23 19:14 Nucleated RBCs # 0.2 /100WBC 12/18/23 19:14 Sodium 136 mmol/L (136-145) 12/18/23 19:14 Potassium 4.5 mmol/L (3.5-5.1) 12/18/23 19:14 Chloride 104 mmol/L (98-107) 12/18/23 19:14 Carbon Dioxide 22 mmol/L (22-29) 12/18/23 19:14 Anion Gap 14.5 (5-19) 12/18/23 19:14 BUN 33 mg/dL (6-20) H 12/18/23 19:14 Creatinine 1.6 mg/dL (0.7-1.2) H 12/18/23 19:14 GFR Calculation 44.9 mL/min (90-130) L 12/18/23 19:14 Glucose 245 mg/dL (65-115) H 12/18/23 19:14 Calculated Osmolality 297 mOsm/kg (285-295) H 12/18/23 19:14 Calcium 8.4 mg/dL (8.5-10.5) L 12/18/23 19:14 Magnesium 1.7 mg/dL (1.7-2.3) 12/18/23 19:14 Total Bilirubin 1.0 mg/dL (0.15-1.2) 12/18/23 19:14 AST 16 U/L (0-40) 12/18/23 19:14 ALT 20 U/L (0-41) 12/18/23 19:14 Alkaline Phosphatase 90 U/L (40-130) 12/18/23 19:14 Troponin T Baseline 65 ng/L (0-15) H 12/18/23 19:14 Total Protein 6.5 g/dL (6.6-8.7) L 12/18/23 19:14 Albumin 3.8 g/dL (3.5-5.2) 12/18/23 19:14 Globulin 2.7 g/dL (1.3-4.6) 12/18/23 19:14 TSH 1.79 uIU/mL (0.27-4.20) 12/18/23 19:14 XR interpretation done by ED provider, pending radiology final review Discharge Plan Discharge Patient Disposition: Admitted As Inpatient Admit Provider: Lucho Sheffield Clinical Impression: Atrial flutter with rapid ventricular response, Type 2 diabetes mellitus, Hyperglycemia, Acute renal insufficiency, Dehydration Condition: Stable Coding Level of Care Code ED School Psychologist Assistant for Shira Mckinley
[2023-12-18] MEDS: sodium chloride 0.9% 500 ML 999 ML IV (19:22)
[2023-12-18] MEDS: adenosine 3 mg/mL SDV 2mL 6 MG IVP (19:22)
[2023-12-18 19:40] LABS: Basophils # 0.1 10^3/uL (0.0-0.1); Basophils % 0.9 %; Eosinophils # 0.3 10^3/uL (0.0-0.8); Eosinophils % 2.3 %; Hematocrit 28.3 % (37-53); Lymphocytes # 4.2 10^3/uL (0.8-4.8); Lymphocytes % 28.4 %; Mean Corpuscular HGB Conc 32.5 g/dL (30-55); Mean Corpuscular Hemoglobin 34.7 pg (27-33); Mean Corpuscular Volume 106.8 fl (82-101); Mean Platelet Volume 11.7 fL (7.4-10.4); Monocytes # 1.9 10^3/uL (0.2-0.9); Nucleated Red Blood Cells # 0.2 /100WBC; Nucleated Red Blood Cells % 1.1 %; Platelet Count 433 10^3/cmm (157-399); Red Blood Count 2.65 10^6/uL (3.85-5.65); White Blood Count 14.81 10^3/uL (3.29-11.43)
[2023-12-18] MEDS: dilTIAZem 5 mg/mL SDV 5 mL 10 MG IVP (19:40)
[2023-12-18] MEDS: dilTIAZem 100 MG in sodium chloride 0.9% (add-van) 100 ML 10 MG IV (19:41)
[2023-12-18 19:52] LABS: Troponin(5th) Baseline 65 ng/L (0-15)
[2023-12-18 19:59] LABS: Alanine Aminotransferase 20 U/L (0-41); Albumin Level 3.8 g/dL (3.5-5.2); Alkaline Phosphatase 90 U/L (40-130); Anion Gap 14.5 (5-19); Aspartate Amino Transferase 16 U/L (0-40); Blood Urea Nitrogen 33 mg/dL (6-20); Calcium 8.4 mg/dL (8.5-10.5); Carbon Dioxide 22 mmol/L (22-29); Chloride 104 mmol/L (98-107); Creatinine Clr Calc Pharmacy 65.3567; Globulin 2.7 g/dL (1.3-4.6); Glomerular Filtration Rate 44.9 mL/min (90-130); Glucose 245 mg/dL (65-115); Magnesium 1.7 mg/dL (1.7-2.3); Osmolality Calculated 297 mOsm/kg (285-295); Potassium 4.5 mmol/L (3.5-5.1); Sodium 136 mmol/L (136-145); Thyroid Stimulating Hormone 1.79 uIU/mL (0.27-4.20); Total Protein 6.5 g/dL (6.6-8.7)
--- NOTE | 2023-12-18 20:25 | PC.NURSE ---
This nurse spoke with Min the pharmacist at this time, and pharmacist confirmed to nurse that magnesium sulfate and cardizem were compatible.
[2023-12-18] MEDS: sodium chloride 0.9% 1,000 ML 999 ML IV (20:40)
[2023-12-18] MEDS: magnesium sulfate premix 2 GM/50 ML PIGGYBACK IV (20:42)
--- NOTE | 2023-12-18 20:49 | PC.NURSE ---
6mg adenosine was administered under direct supervision of Dr Angulo, and with assistance of HAYDE Fraire without incident. Second 12-mg dose was held per Dr Angulo, and returned to [facility].
[2023-12-18 21:07] LABS: Folate Level 6.9 ng/mL (4.5-32.2)
--- NOTE | 2023-12-18 21:07 | ECG_ITS ---
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 Measurements Intervals [place] Rate: 115 P: 0 PA: 0 QRS: 53 QRSD: 106 T: -59 QT: 280 QTc: 388 Interpretive Statements ATRIAL FLUTTER/TACHYCARDIA WITH RAPID VENTRICULAR RESPONSE Compared to ECG 12/18/2023 18:58:10 Supraventricular tachycardia is changed to atrial flutter Electronically Signed On 12-19-2023 8:21:42 CDT by Yifan Soni M.D. [id number]
[2023-12-18 21:08] LABS: Vitamin B12 731 pg/mL (232-1245)
--- NOTE | 2023-12-18 21:54 | PM.HP ---
Providers/Chief Complaint Admitting Physician: Lucho Sheffield MD Primary Care Provider: Yu Lee APN Chief Complaint: 170+ hr resting over 24 hours Urgent care sent History of Present Illness Ernie Plasencia is a 58 year old male with a history of posterior circulation stroke, cerebellar stroke, history of pyruvate kinase deficiency, history of splenectomy, history of chronic anemia, history of type 2 diabetes mellitus, sleep apnea, who presents to [facility] due to chest palpitations. Patient tells me that normally when he exerts himself, he notices that his heart rates go up into the 120s recently has been tracking his blood pressures and his heart rates very closely since his stroke about a year ago. He tells me that typically his heart rates come down after rest. He tells me he has been try to eat healthier, drink lots more water so he has been using knee as seen 5 times a day. Today he tells me his send this morning, he felt flushed as he normally does after taking ASA and but then after that he started noticing chest palpitations and noticed that his heart rates was in the high 160s to 180s, so he came to [facility] for evaluation initial when he came in his heart rates in the 170s and was concerns for SVT so he was given and no card, however his heart rates did not improve, there was concern for atrial flutter with rapid ventricular response, he was placed on Cardizem drip, heart rates have improved in the 120s, currently is alert oriented x 3, following all commands, heart rates between 1 10-1 20, atrial fibrillation, no chest pain, no palpitations, does have lower extremity OBN but he denies any shortness of breath, no chest pain Review of Systems Const: Denies: fever(s) Card: Reports: palpitations; Denies: chest pain Resp: Denies: dyspnea GI: Denies: abdominal pain Neuro: Denies: headache(s) Medications/Allergies Home Medications Medication Instructions Recorded Confirmed Last Taken Type allopurinol 300 mg tablet 300 mg PO DAILY 08/20/21 12/18/23 12/09/22 History aspirin 81 mg tablet,delayed 81 mg PO DAILY #30 tabs 12/12/22 12/18/23 Unknown Rx release atorvastatin 40 mg tablet 40 mg PO BEDTIME #30 tabs 12/12/22 12/18/23 Unknown Rx lisinopril 20 mg tablet 20 mg PO DAILY #30 tabs 12/12/22 12/18/23 Unknown Rx metoprolol tartrate 25 mg tablet 25 mg PO BID@0900,2100 #60 tabs 12/12/22 12/18/23 Unknown Rx empagliflozin 25 mg tablet 25 mg PO DAILY 01/11/23 12/18/23 Unknown History (Jardiance) mupirocin 2 % topical ointment 1 applic topical TID #15 grams 01/17/23 12/18/23 Unknown Rx clopidogrel 75 mg tablet 75 mg PO DAILY #90 tabs 03/04/23 12/18/23 Unknown Rx galantamine 12 mg tablet 12 mg PO BID #180 tabs 03/06/23 12/18/23 Unknown Rx cyclobenzaprine 5 mg tablet 5 mg PO TID PRN back pain #20 tabs 03/20/23 12/18/23 Unknown Rx ketorolac 10 mg tablet 10 mg PO Q8H PRN pain #30 tabs 08/15/23 12/18/23 Unknown Rx prednisone 20 mg tablet 60 mg (3 x 20 mg) PO DAILY 5 days 11/08/23 12/18/23 Unknown Rx #15 tabs Allergies Allergy/AdvReac Type Severity Reaction Status Date / Time No Known Allergies Allergy Verified 12/18/23 18:28 PFSH Acute PFSH: Medical History Obstructive sleep apnea Hyperlipidemia Type 2 diabetes mellitus Gout Hx of ischemic vertebrobasilar artery brainstem stroke (2012) Hypertension Pyruvate kinase (PK) deficiency anemia Surgical History History of colonoscopy (2014) History of bone marrow biopsy (01/07/14) Bone marrow aspiration and biopsy at [facility] H/O knee surgery Left knee cap repair - JAVON Taylor - Dr. 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 Daughter Anesthesia complication Mother Cancer Lung Other Diabetes Hyperlipidemia Hypertension Stroke Denies family history of CAD (coronary artery disease) Clotting disorder Dementia Psychiatric illness Chronic kidney disease (CKD) Suicide Bleeding disorder Lung disease Social History Smoking and tobacco/nicotine status: never used tobacco/nicotine Alcohol intake: never Substance/Drug Use: never service: Yes Vitals/I&O/Wt Last Vital Signs Temp 98.4 F 12/18/23 19:07 Pulse 126 H 12/18/23 21:00 Resp 22 H 12/18/23 21:00 BP 122/62 12/18/23 21:00 Pulse Ox 93 12/18/23 21:00 O2 Del Method Room Air 12/18/23 21:00 Weight last 48 hrs Weight 111.13 kg Physical Exam Const: COMMON NORMALS: no acute distress and patient oriented x3 HENMT: COMMON NORMALS: normocephalic HEAD & SCALP: normocephalic Eye: COMMON NORMALS: Equal, round and reactive pupils present and EOMs intact bilaterally Neck/C-Spine: COMMON NORMALS: no JVD Resp: COMMON NORMALS: normal respiratory effort, No retractions, No use of accessory muscles and clear to auscultation bilaterally AUSCULTATION: clear to auscultation bilaterally Cardio: COMMON NORMALS: no JVD, regular rhythm, S1 normal heart sound present and S2 normal heart sound present RATE: tachycardic RHYTHM: abnormal rhythm irregularly irregular HEART SOUNDS: S1 normal heart sound present and S2 normal heart sound present GI: COMMON NORMALS: Normal to inspection, nondistended, normoactive bowel sounds present, Soft to palpation and non-tender Extremity: NARRATIVE EXTREMITY EXAM: 1+ pitting edema Neuro: COMMON NORMALS: patient oriented x3, CN's II-XII intact bilaterally and moves all extremities Psych: COMMON NORMALS: mental status grossly normal Data 12/18/23 19:14 12/18/23 19:14 A&P Assessment and plan (1) Atrial flutter with rapid ventricular response: (2) Pyruvate kinase (PK) deficiency anemia: (3) Vertebrobasilar ischemia: (4) Basilar artery stenosis: (5) Acute renal insufficiency: (6) Type 2 diabetes mellitus: (7) Obstructive sleep apnea: (8) Fluid overload: (9) CHF exacerbation: Plan Atrial flutter with rapid ventricular response ? TSH within normal limits, has received magnesium replacement in the emergency room, status post Cardizem drip ? Plan ? Monitor in CSU ? Continue Cardizem drip ? Add Cardizem 60 every 6 hours ? Monitor electrolytes closely ? Cardiac echo ? Monitor hemoglobin with 6 hours ? Start heparin drip ? Patients atrial flutter could be a side effect of niacin, however it could be that he had underlying subclinical paroxysmal atrial flutter and it only cam to fruition or became sustained when he used Niacin ? Interestingly patient had a stroke about a year ago he had a stroke 10 years before that, as per Dr. Frazier's documentation, there is concern for cardio embolic source for patient's basilar artery stroke, however he underwent event monitoring was within normal limits, concern is that patient's 2 prior strokes were related to atrial flutter only discovered till now ? He does have a history of pyruvate kinase deficiency, chronic anemia, he has not received blood transfusions in a while has had a splenectomy, as I am starting him on a heparin drip due to concerns for his history of cardioembolic CVAs and atrial flutter being a source, will watch hemoglobin every 6 hours, iron studies, stool studies ? Creatinine 1.6, monitor ? Low-dose sliding scale ? Does have fluid overload, concerns for CHF exacerbation, 1 dose IV Lasix, cardiac echo ? Continue aspirin, statin, Plavix, if patient is discharged on Eliquis, likely discontinue Plavix or aspirin ? Continue Metroprolol 25 twice daily ? Full code ? Heparin drip for DVT prophylaxis Attestations Medical Necessity Statement*: Patient requires hospitalization, inpatient, greater than 2 minutes, for atrial flutter with rapid ventricular response, fluid overload Diagnoses Atrial flutter with rapid ventricular response I48.92 Pyruvate kinase (PK) deficiency anemia D55.21 Vertebrobasilar ischemia G45.0 Basilar artery stenosis I65.1 Acute renal insufficiency N28.9 Type 2 diabetes mellitus E11.9 Obstructive sleep apnea G47.33 Fluid overload E87.70 CHF exacerbation I50.9
[2023-12-18 22:22] LABS: Troponin 5 2HR 69.26 ng/L (0-15); Troponin 5 2HR Delta 4.26 ABS# (0-10)
[2023-12-18 22:37] LABS: NT Pro B Type Natriuretic Pept 4732 pg/mL (0-125)
[2023-12-18] MEDS: pantoprazole 40 mg SDV IVP (22:41)
[2023-12-18] MEDS: dilTIAZem 60 mg Tablet PO (22:41)
[2023-12-18] MEDS: FUROsemide 10 mg/mL SDV 4mL 40 MG IVP (22:42)
[2023-12-18 23:12] LABS: Urine Appearance Clear (CLEAR); Urine Color Yellow (Yellow); pH Urine 5 (5-7)
[2023-12-18 23:13] LABS: Add Urine Culture? No; Bilirubin Urine Neg (Negative); Blood Urine Neg (Negative); Glucose Urine UA 2+ (Normal); Ketones Urine Negative (Negative); Leukocyte Esterase Urine Negative (Negative); Mucus Urine 1+ /hpf; Nitrate Urine Negative (Negative); Protein Urine Trace (Negative); Sperm Urine 1+ /hpf; Urobilinogen Urine Neg (Negative); WBC Urine 0-4 /hpf (0-5)
[2023-12-19] VITALS (11 sets, daily range): BP systolic 118–148; BP diastolic 66–95; PULSE 62–116; RESP 14–26; TEMP 36.3–36.9; O2SAT 91–95
[2023-12-19 00:45] LABS: Iron 41 ug/dL (59-158)
--- NOTE | 2023-12-19 01:07 | ECG_ITS ---
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 Measurements Intervals [place] Rate: 87 P: 259 SC: 173 QRS: 42 QRSD: 105 T: 213 QT: 346 QTc: 417 Interpretive Statements Atrial flutter Compared to ECG 12/18/2023 20:37:12 Ventricle rate is slow Abnormal EKG Electronically Signed On 12-19-2023 8:20:05 CDT by Yifan Soni M.D. [id number]
[2023-12-19 01:22] LABS: Ferritin 1928 ng/mL (30-400)
[2023-12-19 01:43] LABS: Hematocrit 27.9 % (37-53)
[2023-12-19 02:00] LABS: Troponin 5 6HR 99.19 ng/L (0-15)
[2023-12-19 02:07] LABS: Troponin 5 6HR Delta 34.19 ng/L (0-12)
[2023-12-19] MEDS: heparin 5,000 unit/mL INJ 1 mL IV (02:16)
[2023-12-19] MEDS: heparin drip 25,000 UNIT/500 ML PREMIX 32 UNIT IV (02:19)
[2023-12-19] MEDS: dilTIAZem 60 mg Tablet PO ×4 (04:27→21:53)
[2023-12-19] MEDS: dilTIAZem 100 MG in sodium chloride 0.9% (add-van) 100 ML 10 MG IV (04:28)
[2023-12-19 06:15] LABS: Basophils # 0.1 10^3/uL (0.0-0.1); Basophils % 0.8 %; Eosinophils # 0.3 10^3/uL (0.0-0.8); Eosinophils % 2.6 %; Hematocrit 26.5 % (37-53); Lymphocytes # 4.6 10^3/uL (0.8-4.8); Lymphocytes % 34.9 %; Mean Corpuscular HGB Conc 30.9 g/dL (30-55); Mean Corpuscular Hemoglobin 33.5 pg (27-33); Mean Corpuscular Volume 108.2 fl (82-101); Mean Platelet Volume 11.7 fL (7.4-10.4); Monocytes # 1.9 10^3/uL (0.2-0.9); Monocytes % 14.8 %; Neutrophils # 5.97 10^3/uL (1.8-7.7); Neutrophils % 45.4 %; Nucleated Red Blood Cells # 0.2 /100WBC; Nucleated Red Blood Cells % 1.1 %; Platelet Count 388 10^3/cmm (157-399); Red Blood Count 2.45 10^6/uL (3.85-5.65); White Blood Count 13.14 10^3/uL (3.29-11.43)
[2023-12-19 06:31] LABS: Anion Gap 13.8 (5-19); Blood Urea Nitrogen 26 mg/dL (6-20); Calcium 8.5 mg/dL (8.5-10.5); Carbon Dioxide 22 mmol/L (22-29); Chloride 107 mmol/L (98-107); Glomerular Filtration Rate 52.4 mL/min (90-130); Glucose 159 mg/dL (65-115); Magnesium 1.9 mg/dL (1.7-2.3); Osmolality Calculated 296 mOsm/kg (285-295); Potassium 3.8 mmol/L (3.5-5.1); Sodium 139 mmol/L (136-145)
[2023-12-19 06:37] LABS: Glucose Point of Care 159 mg/dL (70-110)
--- NOTE | 2023-12-19 07:43 | PC.PHAR ---
PT STATES CURRENT MEDICATIONS ARE ALLOPURINOL 300 MG DAILY, ASPIRIN 81MG NEEDED, AND KETOROLAC 10MG EVERY 8 HOURS NEEDED. THE FOLLOWING MEDICATIONS WERE TAKEN OFF HIS MED LIST: ATORVASTATIN 40 MG DAILY, CLOPIDOGREL 75 MG DAILY, CYCLOBENZAPRINE 5 MG TID PRN, GALANTAMINE 12 MG TWICE DAILY, JARDIANCE 25MG DAILY, LISINOPRIL 20MG DAILY, AND METOPROLOL TART. 25 MG TWICE DAILY. THESE MEDICATIONS SHOW NOT FILLED SINCE LAST SUMMER.
[2023-12-19] MEDS: clopidogrel 75 mg Tablet PO (08:10)
[2023-12-19] MEDS: allopurinol 300 mg Tablet PO (08:10)
[2023-12-19] MEDS: aspirin 81 mg EC Tablet PO (08:10)
[2023-12-19] MEDS: metoprolol tartrate 25 mg Tablet PO ×2 (08:10→21:53)
[2023-12-19] MEDS: insulin lispro 100 unit/1 mL SUBCUT ×2 (08:11→13:09)
[2023-12-19 08:20] LABS: Partial Thromboplastin Time 57.2 SECONDS (23.9-36.7)
--- NOTE | 2023-12-19 09:35 | PC.CHAP ---
Pastoral Care Encounter/Spiritual Assessment Type of Contact [] Declined jewel sorter visit [] Patient/Family/Request visit [] Outpatient visit [] Follow-up visit [] Physician referral [] Code/Alert [x] Routine visit [] Staff referral [] Actively dying [] Patient sleeping [] Family support [] [] Out of room [] Palliative care [] [] Receiving care in room [] Pre-surgical visit [] Trauma [] Long length of stay [] ICU visit [] Other: Relational/Emotional Strength [x] Patient feels connected with others/family/visitors/staff [] Distress [] Loneliness/isolation [] Abandonment Spirituality of Patient [x] Person of [place] [] Attends Pentecostalism of their [place] [x] Believes in Prayer [] Reads Bible or Taoism materials [] There are Spiritual issues to be addressed Seat Joiner Interventions [x] Prayer [x] Active listening [] Non-anxious presence [x] Spiritual/emotional support [] Crisis/trauma care [] Spiritual counseling [] Bereavement support [] Provided bereavement packet [] Provided Bible/devotional materials [] Provided toy/stuffed animal, coloring book to patient or family member [] Provided Communion [] Anointing/[place] [] Salvation [x] Completed spiritual assessment [] Other: Impact on Illness or Injury [] Angry [] Fearful [] Anxious [] Often cries [] Exhaustion [] Unable to work [] Unable to attend moravian [] Unable to walk/stand [] Unable to read [] Unable to drive [] Unable to eat/drink [] Unable to sleep [] Unable to be with family [] Patient intubated [] Other: Summary Time spent with patient 5 min
[2023-12-19 10:48] LABS: Glucose Point of Care 166 mg/dL (70-110)
--- NOTE | 2023-12-19 10:51 | P.PN_ITS ---
Subjective 2 Subjective: seen today no acute events overnight still in atrial flutter Vitals/I&O/Wt Last Vital Signs Temp 97.8 F 12/19/23 07:44 Pulse 62 12/19/23 10:39 Resp 16 12/19/23 07:44 BP 124/78 12/19/23 07:44 Pulse Ox 92 12/19/23 07:44 O2 Del Method Room Air 12/19/23 07:44 12/18/23 12/19/23 12/19/23 22:59 06:59 14:59 Intake Total 1573.833 / 1573.833 75.792 / 1649.625 229.558 / 229.558 Output Total 600 / 600 1950 / 2550 1150 / 1150 Balance 973.833 / 973.833 -1874.208 / -900.375 -920.442 / -920.442 Weight last 48 hrs Weight 113.625 kg Weight 111.13 kg Weight 111.13 kg Physical Exam 2 Const: COMMON NORMALS: no acute distress and patient oriented x3 HENMT: COMMON NORMALS: normocephalic HEAD & SCALP: normocephalic Eye: COMMON NORMALS: Equal, round and reactive pupils present and EOMs intact bilaterally PUPIL: Yes Equal, round and reactive pupils present Neck/C-Spine: COMMON NORMALS: no JVD Resp: COMMON NORMALS: normal respiratory effort, No retractions, No use of accessory muscles and clear to auscultation bilaterally AUSCULTATION: clear to auscultation bilaterally Cardio: COMMON NORMALS: no JVD, regular rhythm, S1 normal heart sound present and S2 normal heart sound present RATE: tachycardic RHYTHM: regular rhythm and abnormal rhythm irregularly irregular HEART SOUNDS: S1 normal heart sound present and S2 normal heart sound present GI: COMMON NORMALS: Normal to inspection, nondistended, normoactive bowel sounds present, Soft to palpation and non-tender PALPATION: Yes Soft to palpation Extremity: NARRATIVE EXTREMITY EXAM: 1+ pitting edema Neuro: COMMON NORMALS: patient oriented x3, CN's II-XII intact bilaterally and moves all extremities Psych: COMMON NORMALS: mental status grossly normal Data 12/19/23 05:52 12/19/23 05:52 A&P Assessment and plan (1) Atrial flutter with rapid ventricular response: (2) Pyruvate kinase (PK) deficiency anemia: (3) Vertebrobasilar ischemia: (4) Basilar artery stenosis: (5) Acute renal insufficiency: (6) Type 2 diabetes mellitus: (7) Obstructive sleep apnea: (8) Fluid overload: (9) CHF exacerbation: Plan Atrial flutter with rapid ventricular response ? TSH within normal limits, has received magnesium replacement in the emergency room, status post Cardizem drip ? Plan ? Monitor in CSU ? Continue Cardizem drip ? Add Cardizem 60 every 6 hours ? Monitor electrolytes closely ? Cardiac echo ? Monitor hemoglobin with 6 hours ? Start heparin drip ? Patients atrial flutter could be a side effect of niacin, however it could be that he had underlying subclinical paroxysmal atrial flutter and it only cam to fruition or became sustained when he used Niacin ? Interestingly patient had a stroke about a year ago he had a stroke 10 years before that, as per Dr. Frazier's documentation, there is concern for cardio embolic source for patient's basilar artery stroke, however he underwent event monitoring was within normal limits, concern is that patient's 2 prior strokes were related to atrial flutter only discovered till now ? He does have a history of pyruvate kinase deficiency, chronic anemia, he has not received blood transfusions in a while has had a splenectomy, as I am starting him on a heparin drip due to concerns for his history of cardioembolic CVAs and atrial flutter being a source, will watch hemoglobin every 6 hours, iron studies, stool studies ? Creatinine 1.6, monitor ? Low-dose sliding scale ? Does have fluid overload, concerns for CHF exacerbation, 1 dose IV Lasix, cardiac echo ? Continue aspirin, statin, Plavix, if patient is discharged on Eliquis, likely discontinue Plavix or aspirin ? Continue Metroprolol 25 twice daily ? Full code ? Heparin drip for DVT prophylaxis Continue above plan talked with cardiology as well pt would like to convert to sinus somehow. will continue cardizem drip for now Attestations 2 Medical Necessity Statement*: Patient requires hospitalization, inpatient, greater than 2 minutes, for atrial flutter with rapid ventricular response, fluid overload Diagnoses Atrial flutter with rapid ventricular response I48.92 Pyruvate kinase (PK) deficiency anemia D55.21 Vertebrobasilar ischemia G45.0 Basilar artery stenosis I65.1 Acute renal insufficiency N28.9 Type 2 diabetes mellitus E11.9 Obstructive sleep apnea G47.33 Fluid overload E87.70 CHF exacerbation I50.9
[2023-12-19] MEDS: pantoprazole 40 mg SDV IVP ×2 (11:51→21:53)
[2023-12-19 12:19] LABS: Hematocrit 26.6 % (37-53)
[2023-12-19 14:51] LABS: Partial Thromboplastin Time 94.2 SECONDS (23.9-36.7)
[2023-12-19 16:38] LABS: Glucose Point of Care 133 mg/dL (70-110)
[2023-12-19] MEDS: heparin drip 25,000 UNIT/500 ML PREMIX 27 UNIT IV (17:36)
[2023-12-19 18:28] LABS: Hematocrit 28.3 % (37-53)
--- NOTE | 2023-12-19 20:02 | PM.CONSULT ---
Providers/Reason For Consult Consulting Physician/Specialty*: Cardiology Reason for Consult*: Elevated troponin Atrial flutter/atrial fibrillation Low LVEF Requesting Physician: Dr. Hernandez Attending Physician: Jovita Hernandez MD Primary Care Provider: Yu Lee APN History of Present Illness History of Present Illness Ernie Plasencia is a 58 year old male with a chronic complex medical history including chronic anemia, pyruvate kinase deficiency, splenectomy, diabetes mellitus) now on diet control only, hypertension admitted with asymptomatic tachycardia. On routine blood pressure check patient found to have an increased heart rate into 160s to 170s up. He checked his heart rate multiple times yesterday afternoon and early evening using a digital blood pressure monitor. Subsequently went to his primary care physician's office who referred him to ER. Clinically he denies any chest pain however he does feel at times some shortness of air on exertion which is chronically related to his history of anemia. He has moderate exercise tolerance. In the past he was on medication for diabetes however after adjustment of his diet he is currently on no meds for diabetes and as per patient his blood sugar has been very good only with diet control. On arrival in the ER he was found to be in atrial flutter with variable ventricular rate. He was managed with intravenous infusion of Cardizem with a successful control of ventricular rate. However he remains an atrial flutter/intermittent atrial fibrillation. Currently patient sitting comfortably on his bed. He denies any cardiac symptoms. I reviewed his echo which showed global hypokinesis with the EF of 40%. The lab data showed low hemoglobin, which has been chronic consistent with his underlying history of pyruvate kinase deficiency. The current hemoglobin is 8.6. The renal function showed increasing creatinine 1.6. The renal function abdominal abnormality appears to be new. No history of any swelling of lower extremities, occasional history of nonspecific, atypical chest pain. Denies orthopnea or proximal nocturnal dyspnea. No history of a sense presyncope or syncope. However he does have history of stroke in the past. Review of Systems Narrative: Detailed 10 point systemic review unremarkable except for as mentioned above in the history of present illness. Medications/Allergies Home Medications Medication Instructions Recorded Confirmed Last Taken Type allopurinol 300 mg tablet 300 mg PO DAILY 08/20/21 12/19/23 12/18/23 History ketorolac 10 mg tablet 10 mg PO Q8H PRN pain #30 tabs 08/15/23 12/19/23 Unknown Rx aspirin 81 mg tablet,delayed 81 mg PO DAILY PRN unknown 12/19/23 12/19/23 Unknown History release Allergies Allergy/AdvReac Type Severity Reaction Status Date / Time No Known Allergies Allergy Verified 12/18/23 18:28 Current Medications Generic Name Dose Route Start Last Admin Trade Name Freq PRN Reason Stop Dose Admin Allopurinol 300 mg 12/19/23 09:00 12/19/23 08:10 Allopurinol 300 Mg Tablet PO 300 mg DAILY ROBBIE Administration Aspirin 81 mg 12/19/23 09:00 12/19/23 08:10 Aspirin 81 Mg Ec Tablet PO 81 mg DAILY ROBBIE Administration Diltiazem HCl 60 mg 12/18/23 22:13 12/19/23 17:34 Diltiazem 60 Mg Tablet PO 60 mg Q6H ROBBIE Administration Heparin Sodium (Porcine) 0 unit 12/18/23 21:46 12/19/23 02:16 Heparin 5,000 Unit/Ml Inj 1 Ml IV 5,800 unit PRN PRN Administration Heparin weight-base protocol Protocol Diltiazem HCl 100 mg/ Sodium 100 mls @ 10 mls/hr 12/18/23 19:30 12/19/23 16:34 Chloride IV Not Given .Q10H ROBBIE 10 MG/HR Heparin Sodium/Sodium Chloride 25,000 unit in 500 mls @ 0 mls/hr 12/18/23 22:00 12/19/23 17:36 Heparin Drip IV 12.15 unit/kg/hr .Q0M ROBBIE 27 mls/hr Administration Protocol Per Protocol Insulin Human Lispro 0 unit 12/19/23 08:00 12/19/23 16:46 Insulin Lispro 100 Unit/1 Ml SUBCUT Not Given TIDWM [facility] Protocol Metoprolol Tartrate 25 mg 12/19/23 09:00 12/19/23 08:10 Metoprolol Tartrate 25 Mg Tablet PO 25 mg BID@0900,2100 ROBBIE Administration Pantoprazole Sodium 40 mg 12/18/23 22:13 12/19/23 11:51 Pantoprazole 40 Mg Sdv IVP 40 mg Q12H ROBBIE Administration PFSH Acute PFSH: Medical History Obstructive sleep apnea Hyperlipidemia Type 2 diabetes mellitus Gout Hx of ischemic vertebrobasilar artery brainstem stroke (2012) Hypertension Pyruvate kinase (PK) deficiency anemia Surgical History History of colonoscopy (2014) History of bone marrow biopsy (01/07/14) Bone marrow aspiration and biopsy at [facility] H/O knee surgery Left knee cap repair - JAVON Taylor - Dr. 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 Daughter Anesthesia complication Mother Cancer Lung Other Diabetes Hyperlipidemia Hypertension Stroke Denies family history of CAD (coronary artery disease) Clotting disorder Dementia Psychiatric illness Chronic kidney disease (CKD) Suicide Bleeding disorder Lung disease Social History Smoking and tobacco/nicotine status: never used tobacco/nicotine Alcohol intake: never Substance/Drug Use: never service: Yes Vitals/I&O/Wt Last Vital Signs Temp 97.7 F 12/19/23 15:54 Pulse 86 12/19/23 15:54 Resp 14 12/19/23 15:54 BP 135/80 12/19/23 15:54 Pulse Ox 91 12/19/23 15:54 O2 Del Method Nasal Cannula 12/19/23 15:54 12/19/23 12/19/23 12/19/23 06:59 14:59 22:59 Intake Total 75.792 / 1649.625 236.391 / 236.391 284.967 / 521.358 Output Total 1950 / 2550 1150 / 1150 825 / 1975 Balance -1874.208 / -900.375 -913.609 / -913.609 -540.033 / -1453.642 Weight last 48 hrs Weight 250 lb 8 oz Weight 245 lb Weight 245 lb Physical Exam Narrative: Patient laying comfortably on the bed. He is not in respiratory distress. Vitals reveal blood pressure 112/71. Pulse 82/min O2 saturation 94% on room air. No lower extremity edema. There is no jugular venous distention. HEENT examination unremarkable. Eyes, conjunctiva, facial appearance are normal. Chest auscultation reveals good air entry bilaterally. Cardiovascular examination normal first and second heart sounds. There is a mild systolic murmur. Abdomen soft nontender, bowel sounds audible. Lower extremities. No lower extremity edema. Distal pulses palpable. Neuro exam grossly intact. Skin warm and dry. Psych: Exam unremarkable. Data 12/19/23 18:08 12/19/23 05:52 Micro: Microbiology 12/19/23 10:12 Stool Lactoferrin - Final Stool A&P Assessment and plan (1) Atrial fibrillation with RVR: (2) Atrial flutter with rapid ventricular response: (3) CHF exacerbation: Plan 58-year-old male patient with multiple comorbidities, including complex medical history now presenting with 1. Atrial flutter/A-fib, mainly asymptomatic. The heart rate has been in 150s to 170s. 2. Clinically no signs symptoms suggestive of angina. 3. Diffuse hypokinesis of left ventricle on echo, LVEF 40%. 4. Elevated cardiac troponin enzymes, likely secondary to persistent tachyarrhythmia over days and unlikely related to acute AR. 5. Ongoing chronic anemia. Previous history of stroke/CVA Plan/recommendation: 1. agree with the rate control strategy with Cardizem/beta-angelita. Currently patient is off IV Cardizem and his heart rate is in the range of 80s to 90. However he remains in atrial flutter/A-fib. 2. Considering no acute cardiac ischemia I recommend to de-escalate anti platelet therapy. I am going to stop Plavix but to continue aspirin 81 mg daily. He will continue on aspirin and as well as heparin mainly because of ongoing atrial flutter/A-fib and with a previous history of a CVA/ischemic stroke 3. With the increasing creatinine, due to acute to AKA, I am also going to stop lisinopril. His blood pressure is already good control. 4. 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 Souza on Friday. In the meantime patient will stay on IV heparin as per protocol. Coding Level of Care Code Acute Code for [facility] Fwd Diagnoses Atrial fibrillation with RVR I48.91 Atrial flutter with rapid ventricular response I48.92 CHF exacerbation I50.9
[2023-12-19 20:27] LABS: Glucose Point of Care 213 mg/dL (70-110)
--- NOTE | 2023-12-19 21:46 | USCV_ITS ---
Ernie Plasencia Age: 58 Gender: M : 1965 Exam Date: 12/19/2023 01:33 Ordering Phys: Lucho Sheffield MD Technologist: PARISA [place] [facility] [place] afib with RVR in ER. history of CVA, hyperlipidemia, HTN, DM, gout. No history of cardiac intervention per patient. BP: 122 / 62 HR: 82 Rhythm: Atrial flutter with intervals of sinus rhythm Technical Quality: Adequate MEASUREMENTS (Male / Female) Normal Values 2D ECHO LV Diastolic Diameter PLAX 4.1 cm 4.2 - 5.9 / 3.9 - 5.3 cm IVS Diastolic Thickness 1.5 cm 0.6 - 1.0 / 0.6 - 0.9 cm IVS Systolic Thickness 1.9 cm LVPW Diastolic Thickness 1.7 cm 0.6 - 1.0 / 0.6 - 0.9 cm LVPW Systolic Thickness 2.3 cm LVOT Diameter 2.5 cm LV Ejection Fraction 2D Teich 63.2 % LV Ejection Fraction MOD 2C 49.8 % LV Ejection Fraction 2C AL 50.8 % LA Diameter 5.2 cm Aorta at Sinotubular Diameter 3.3 cm IVC Diameter 2.1 cm M-MODE LA Ao Ratio MM 1.2 AV Cusp Separation MM 2.5 cm DOPPLER AV Peak Velocity 133.0 cm/s LVOT Peak Velocity 84.0 cm/s AV Area Cont Eq vti 2.6 cm squared AV Area Cont Eq pk 3.1 cm squared MV Peak Velocity 148.0 cm/s MV Area PHT 5.2 cm squared Mitral E to A Ratio 1.5 TR Peak Velocity 248.0 cm/s TR Peak Gradient 24.6 mmHg TV Peak E Velocity 57.0 cm/s Right Atrial Pressure 3.0 mmHg Pulmonary Artery Systolic Pressu 27.6 mmHg PV Peak Velocity 100.0 cm/s FINDINGS Left Ventricle Diffuse hypokinesia of the left ventricle with ejection fraction of 40%. Mild diffuse hypokinesia. Patient was found to be in atrial flutter with rapid ventricular rate, during the study Right Ventricle The right ventricle is normal in size and function. Right Atrium The right atrium is normal in size. Left Atrium Mildly increased left atrial size. Mitral Valve Thickened mitral valve. Mild mitral valve regurgitation. Aortic Valve Thickened aortic valve. Tricuspid Valve Trace to mild tricuspid valve regurgitation. Pulmonic Valve Pulmonic valve not well visualized. Pericardium Normal pericardium without effusion. Aorta Normal ascending aorta dimension. IVC The inferior vena cava appears normal. CONCLUSIONS Diffuse hypokinesia of the left ventricle with ejection fraction of 40%. Mild diffuse hypokinesia. Patient was found to be in atrial flutter with rapid ventricular rate, during the study. Mildly increased left atrial size. Thickened mitral valve. Mild mitral valve regurgitation. Thickened aortic valve. Trace to mild tricuspid valve regurgitation. There is no pericardial effusion. There are no intracardiac masses. Technically somewhat difficult study Dr Sera Benjamin MD FACC (Electronically Signed) Final Date: 19 Dec 2023 11:53 S
[2023-12-19 23:36] LABS: Partial Thromboplastin Time 136.1 SECONDS (23.9-36.7)
[2023-12-20] VITALS (11 sets, daily range): BP systolic 113–147; BP diastolic 68–95; PULSE 81–108; RESP 15–21; TEMP 36.6–37.3; O2SAT 91–97
--- NOTE | 2023-12-20 02:29 | ECG_ITS ---
[facility] Test Date: 2023-12-20 Pat Name: Ernie Plasencia Department: Room: 107 Gender: Male Pen Tender: : 1965 Requested By: Lucho Sheffield Order Number: [id number] Melina MD: Yifan Soni M.D. Measurements Intervals [place] Rate: 49 P: 0 DC: 0 QRS: 56 QRSD: 104 T: 77 QT: 400 QTc: 363 Interpretive Statements ATRIAL FIBRILLATION WITH SLOW VENTRICULAR RESPONSE MINIMAL ST DEPRESSION [0.025+ mV ST DEPRESSION] ABNORMAL RHYTHM ECG Compared to ECG 12/19/2023 00:55:03 ST (T wave) deviation now present Atrial flutter no longer present Electronically Signed On 12-21-2023 13:51:22 CDT by Yifan Soni M.D. [id number]
--- NOTE | 2023-12-20 03:50 | PC.NURSE ---
patient has been bradycardic 50's to 60's dropping in the 40's and occasionally 30's, he is concerned about hr and doesn't want anymore cardizem or metoprolol until he speaks with physician, appx. 0200 patient states he got up to use restroom and felt dizzy and felt like he was about to pass out, bp lying down 108/58, had patient sit on side of bed and bp dropped to 80/54, patient states he feels weak and dizzy again, after patient laid back down bp increased to 98/53, notified Dr Sheffield, order to keep patient on bedrest and hold off on cardizem and metoprolol, repeat bp 113/68, ekg shows slow afib with minimal ST depression, when asked about chest pain, pt states when he got up he felt a dull pressure on right side of chest, patient also states he feels like he is dehydrated because he hasn't been drinking much and urine is dark and he usually drinks gallon of water a day and urine is usually clear, Dr Sheffield updated, troponin series ordered, continue to monitor
--- NOTE | 2023-12-20 04:57 | ECG_ITS ---
[facility] Test Date: 2023-12-20 Pat Name: Ernie Plasencia Department: Room: 107 Gender: Male Estate Administrator: : 1965 Requested By: Lucho Sheffield Order Number: [id number] Melina MD: Yifan Soni M.D. Measurements Intervals [place] Rate: 84 P: 0 W[place]: 0 QRS: 57 QRSD: 107 T: 74 QT: 369 QTc: 438 Interpretive Statements ATRIAL FIBRILLATION POSSIBLE LEFT VENTRICULAR HYPERTROPHY [VOLTAGE CRITERIA PLUS LAE OR QRS WIDENING] Compared to ECG 12/20/2023 02:39:25 ST (T wave) deviation no longer present Electronically Signed On 12-21-2023 13:51:14 CDT by Yifan Soni M.D. [id number]
[2023-12-20 06:19] LABS: Basophils # 0.1 10^3/uL (0.0-0.1); Basophils % 0.6 %; Eosinophils # 0.2 10^3/uL (0.0-0.8); Eosinophils % 1.1 %; Hematocrit 27.6 % (37-53); Lymphocytes # 2.4 10^3/uL (0.8-4.8); Lymphocytes % 16.1 %; Mean Corpuscular HGB Conc 30.4 g/dL (30-55); Mean Corpuscular Hemoglobin 33.5 pg (27-33); Mean Platelet Volume 11.1 fL (7.4-10.4); Monocytes % 6.8 %; Neutrophils % 73.3 %; Nucleated Red Blood Cells # 0.3 /100WBC; Nucleated Red Blood Cells % 1.8 %; Platelet Count 391 10^3/cmm (157-399); Red Blood Count 2.51 10^6/uL (3.85-5.65); Red Cell Distribution Width 15.4 % (12.1-15.1); White Blood Count 15.01 10^3/uL (3.29-11.43)
[2023-12-20 06:32] LABS: Anion Gap 11.2 (5-19); Blood Urea Nitrogen 22 mg/dL (6-20); Calcium 8.5 mg/dL (8.5-10.5); Carbon Dioxide 24 mmol/L (22-29); Chloride 106 mmol/L (98-107); Creatinine Clr Calc Pharmacy 69.7138; Glomerular Filtration Rate 48.4 mL/min (90-130); Glucose 195 mg/dL (65-115); Magnesium 1.7 mg/dL (1.7-2.3); Osmolality Calculated 293 mOsm/kg (285-295); Potassium 4.2 mmol/L (3.5-5.1); Sodium 137 mmol/L (136-145)
[2023-12-20 06:35] LABS: Partial Thromboplastin Time 126.3 SECONDS (23.9-36.7)
[2023-12-20 07:14] LABS: Troponin(5th) Baseline 89 ng/L (0-15)
[2023-12-20 07:46] LABS: Glucose Point of Care 193 mg/dL (70-110)
[2023-12-20] MEDS: insulin lispro 100 unit/1 mL SUBCUT ×2 (08:30→18:42)
[2023-12-20] MEDS: allopurinol 300 mg Tablet PO (08:30)
[2023-12-20] MEDS: aspirin 81 mg EC Tablet PO (08:30)
[2023-12-20 09:08] LABS: Troponin 5 2HR 79.18 ng/L (0-15)
[2023-12-20 09:15] LABS: Troponin 5 2HR Delta -9.82 ABS# (0-10)
--- NOTE | 2023-12-20 10:20 | ECG_ITS ---
[facility] Test Date: 2023-12-20 Pat Name: Ernie Plasencia Department: Room: 107 Gender: Male Convict Guard: : 1965 Requested By: Lucho Sheffield Order Number: [id number] Melina MD: Yifan Soni M.D. Measurements Intervals [place] Rate: 89 P: 0 CO: 0 QRS: 46 QRSD: 105 T: 163 QT: 339 QTc: 413 Interpretive Statements ATRIAL FLUTTER/TACHYCARDIA ST DEVIATION AND MODERATE T-WAVE ABNORMALITY, CONSIDER INFERIOR ISCHEMIA [-0.1+ mV T-WAVE IN II/aVF] Compared to ECG 12/20/2023 05:11:03 T-wave abnormality now present Possible ischemia now present Electronically Signed On 12-20-2023 12:43:44 CDT by Yifan Soni M.D. [id number]
[2023-12-20] MEDS: dilTIAZem 60 mg Tablet PO ×3 (11:27→21:32)
[2023-12-20] MEDS: pantoprazole 40 mg SDV IVP ×2 (11:27→21:33)
[2023-12-20 11:37] LABS: Glucose Point of Care 126 mg/dL (70-110)
--- NOTE | 2023-12-20 11:43 | P.PN_ITS ---
Subjective 2 Subjective: I saw Mr. Plasencia this morning reviewed events overnight. Clinically he is doing fine. Currently asymptomatic. No chest pain or shortness of air. I noted there was a transient decrease heart rate into the 30s on the monitor. Patient noted heart rate himself and alerted the nursing staff. EKG showed atrial flutter with variable rate. Clinically he remained asymptomatic. Currently his vitals are stable. Blood pressure 122/68. Pulse 86/min O2 saturation 95% on room air. Medications: Medication Review Details: Medication reviewed Vitals/I&O/Wt Last Vital Signs Temp 99.1 F 12/20/23 04:00 Pulse 90 12/20/23 11:13 Resp 18 12/20/23 11:13 BP 147/95 12/20/23 11:13 Pulse Ox 94 12/20/23 11:13 O2 Del Method Room Air 12/20/23 11:13 12/19/23 12/20/23 12/20/23 22:59 06:59 14:59 Intake Total 684.967 / 921.358 511.1 / 1432.458 200 / 200 Output Total 1125 / 2275 Balance -440.033 / -1353.642 511.1 / -842.542 200 / 200 Weight last 48 hrs Weight 245 lb Weight 250 lb 8 oz Weight 245 lb Weight 245 lb Physical Exam 2 Narrative: Resting comfortably on the bed. No respiratory distress. Vitals are stable. Heart rate in the 80s with atrial flutter/A-fib with variable block. Previous pedal edema. Lungs clear to auscultation bilaterally. Cardiac emanation normal first and second heart sounds. Abdomen soft nontender. Bowel sounds audible. Skin warm and dry. Neuro exam grossly intact. Data 12/20/23 06:02 12/20/23 06:02 Micro: Microbiology 12/19/23 10:12 Stool Lactoferrin - Final Stool A&P Assessment and plan (1) CHF exacerbation: (2) Atrial fibrillation with RVR: 58-year male patient with atrial flutter with variable heart rate, low LVEF likely secondary to tachyarrhythmia, and possible NSTEMI. Clinically currently stable. No active angina or heart failure symptoms. The transient low heart rate overnight was likely due to medications being used for atrial flutter/A-fib Plan 1. discontinue metoprolol. 2. Continue current current dose of diltiazem and monitor heart rate. 3. Hematology consultation with Dr. Souza regarding chronic anemia. Patient likely need long-term anticoagulation because of history of A-fib and previous history of TIA/CVA. (3) NSTEMI (non-ST elevated myocardial infarction): Attestations 2 Medical Necessity Statement*: 1. Atrial flutter with variable heart r ate 2. Reduced LV systolic function 3. Possible NSTEMI Coding Level of Care Code 15616 Diagnoses CHF exacerbation I50.9 Atrial fibrillation with RVR I48.91 NSTEMI (non-ST elevated myocardial infarction) I21.4
[2023-12-20 13:11] LABS: Troponin 5 6HR 78.97 ng/L (0-15)
[2023-12-20 13:12] LABS: Troponin 5 6HR Delta -10.03 ng/L (0-12)
[2023-12-20 13:14] LABS: Partial Thromboplastin Time 75.5 SECONDS (23.9-36.7)
--- NOTE | 2023-12-20 13:49 | P.PN_ITS ---
Subjective 2 Subjective: Overnight patient was noted to have episode of bradycardia with some hypotension. Meds were refused this morning. Heart rate noted to be tachycardic at times. Vitals and blood pressure have been mostly stable Vitals/I&O/Wt Last Vital Signs Temp 99.1 F 12/20/23 04:00 Pulse 90 12/20/23 11:13 Resp 18 12/20/23 11:13 BP 147/95 12/20/23 11:13 Pulse Ox 94 12/20/23 11:13 O2 Del Method Room Air 12/20/23 11:13 12/19/23 12/20/23 12/20/23 22:59 06:59 14:59 Intake Total 684.967 / 921.358 511.1 / 1432.458 200 / 200 Output Total 1125 / 2275 Balance -440.033 / -1353.642 511.1 / -842.542 200 / 200 Weight last 48 hrs Weight 245 lb Weight 250 lb 8 oz Weight 245 lb Weight 245 lb Physical Exam 2 Const: COMMON NORMALS: no acute distress and patient oriented x3 HENMT: COMMON NORMALS: normocephalic HEAD & SCALP: normocephalic Eye: COMMON NORMALS: Equal, round and reactive pupils present and EOMs intact bilaterally PUPIL: Yes Equal, round and reactive pupils present Resp: COMMON NORMALS: normal respiratory effort, No retractions, No use of accessory muscles and clear to auscultation bilaterally AUSCULTATION: clear to auscultation bilaterally Cardio: COMMON NORMALS: regular rhythm, S1 normal heart sound present and S2 normal heart sound present RATE: tachycardic RHYTHM: regular rhythm H EART SOUNDS: S1 normal heart sound present and S2 normal heart sound present GI: COMMON NORMALS: Normal to inspection, nondistended, normoactive bowel sounds present and non-tender Extremity: NARRATIVE EXTREMITY EXAM: 1+ pitting edema Neuro: COMMON NORMALS: patient oriented x3, CN's II-XII intact bilaterally and moves all extremities Psych: COMMON NORMALS: mental status grossly normal Data 12/20/23 06:02 12/20/23 06:02 Micro: Microbiology 12/19/23 10:12 Stool Lactoferrin - Final Stool A&P Assessment and plan (1) Atrial flutter with rapid ventricular response: (2) Pyruvate kinase (PK) deficiency anemia: (3) Vertebrobasilar ischemia: (4) Basilar artery stenosis: (5) Acute renal insufficiency: (6) Type 2 diabetes mellitus: (7) Obstructive sleep apnea: (8) Fluid overload: (9) CHF exacerbation: Plan Atrial flutter with rapid ventricular response ? TSH within normal limits, mg replaced status post Cardizem drip ? Plan ? Monitor in CSU - PO cardizem, episode of bradycardia and hypotension ovenight. hold PO metoprolol for now, add PRN IV metoprolol ? Monitor electrolytes closely ? Cardiac echo ? Monitor hemoglobin ? heparin drip ? Interestingly patient had a stroke about a year ago he had a stroke 10 years before that, as per Dr. Frazier's documentation, there is concern for cardio embolic source for patient's basilar artery stroke, however he underwent event monitoring was within normal limits, concern is that patient's 2 prior strokes were related to atrial flutter only discovered till now ? He does have a history of pyruvate kinase deficiency, chronic anemia, he has not received blood transfusions in a while has had a splenectomy, as I am starting him on a heparin drip due to concerns for his history of cardioembolic CVAs and atrial flutter being a source, will watch hemoglobin every 6 hours, iron studies, stool studies ? Creatinine monitor ? Low-dose sliding scale ? Does have fluid overload, concerns for CHF exacerbation, 1 dose IV Lasix, cardiac echo ? Continue aspirin, if patient is discharged on Eliquis, likely discontinue Plavix or aspirin ? Full code ? Heparin drip for DVT prophylaxis Attestations 2 Medical Necessity Statement*: heart rate treatment Coding Level of Care Code 03628 Diagnoses Atrial flutter with rapid ventricular response I48.92 Pyruvate kinase (PK) deficiency anemia D55.21 Vertebrobasilar ischemia G45.0 Basilar artery stenosis I65.1 Acute renal insufficiency N28.9 Type 2 diabetes mellitus E11.9 Obstructive sleep apnea G47.33 Fluid overload E87.70 CHF exacerbation I50.9
[2023-12-20] MEDS: heparin drip 25,000 UNIT/500 ML PREMIX 15 UNIT IV (16:12)
[2023-12-20 16:21] LABS: Glucose Point of Care 143 mg/dL (70-110)
[2023-12-20] MEDS: metoprolol tartrate 1 mg/1 mL SDV 5 mL 5 MG IVP (19:02)
[2023-12-20 19:32] LABS: Partial Thromboplastin Time 65.2 SECONDS (23.9-36.7)
[2023-12-20 20:30] LABS: Glucose Point of Care 109 mg/dL (70-110)
[2023-12-21] VITALS (10 sets, daily range): BP systolic 129–178; BP diastolic 80–104; PULSE 84–117; RESP 12–25; TEMP 36.7–37; O2SAT 92–95
[2023-12-21] MEDS: dilTIAZem 60 mg Tablet PO ×4 (04:39→21:21)
[2023-12-21 06:35] LABS: Glucose Point of Care 104 mg/dL (70-110)
[2023-12-21] MEDS: aspirin 81 mg EC Tablet PO (08:36)
[2023-12-21] MEDS: allopurinol 300 mg Tablet PO (08:36)
[2023-12-21 08:59] LABS: Partial Thromboplastin Time 53.3 SECONDS (23.9-36.7)
--- NOTE | 2023-12-21 10:47 | P.PN_ITS ---
Subjective 2 Subjective: I saw patient this morning, reviewed his labs, data and events overnight. Clinically he is stable from cardiovascular point of view. He remains in atrial flutter with variable heart rate. Clinically no angina or any heart failure symptoms. Noted her heart rate jumps up to 120s to 140s on minimal activity. Currently he is on Cardizem 60 mg every 6 hours. Additionally he is on anticoagulation with IV heparin. Rest of systemic review unremarkable. Medications: Medication Review Details: Medications reviewed Vitals/I&O/Wt Last Vital Signs Temp 98.1 F 12/21/23 08:54 Pulse 90 12/21/23 08:54 Resp 17 12/21/23 08:54 BP 129/81 12/21/23 08:54 Pulse Ox 95 12/21/23 08:54 O2 Del Method Room Air 12/21/23 04:00 FiO2 21 12/21/23 03:10 12/20/23 12/21/23 12/21/23 22:59 06:59 14:59 Intake Total 591.542 / 791.542 200 / 991.542 260.25 / 260.25 Output Total 350 / 350 750 / 750 Balance 591.542 / 791.542 -150 / 641.542 -489.75 / -489.75 Weight last 48 hrs Weight 245 lb Physical Exam 2 Narrative: Resting comfortably on the bed. No respiratory distress. Vitals are stable. Blood pressure 112/68. Heart rate in the 60s to 90s atrial flutter with variable heart rate. Minimal pedal edema. Lungs clear to auscultation bilaterally. Cardiac emanation normal first and second heart sounds. Abdomen soft nontender. Bowel sounds audible. Skin warm and dry. Neuro exam grossly intact. Data 12/20/23 06:02 12/20/23 06:02 A&P Assessment and plan (1) NSTEMI (non-ST elevated myocardial infarction): (2) Atrial fibrillation with RVR: Plan 58-year-old male with significant comorbidities including history of rare metabolic disorderof pyruvate kinase deficiency, chronic anemia, previous splenectom, and ischemic CVA, admitted with a tachyarrhythmia, atrial flutter with variable heart rate. Echo showed new onset of cardiomyopathy with low LVEF 40%. Elevated cardiac troponin enzymes, NSTEMI, likely secondary to tachyarrhythmia Currently patient is a stable from cardiac point of view. Noted his heart rate is quite variable especially on activity. Plan. 1. Continue current oral medication and IV heparin. Patient needs anticoagulation in the setting of atrial flutter and low LVEF especially with history of previous ischemic stroke. 2. With the current NSTEMI and low EF recommend cardiac catheterization 3. With unstable a heart rate in the setting of atrial flutter patient might benefit from elective DC cardioversion recommend to carry out a DC cardioversion at the time of cardiac cath tomorrow. Attestations 2 Medical Necessity Statement*: 1. Atrial flutter with variable heart r ate 2. Cardiomyopathy 3. NSTEMI Coding Level of Care Code Acute Code for [facility] Diagnoses NSTEMI (non-ST elevated myocardial infarction) I21.4 Atrial fibrillation with RVR I48.91 Time Spent (min) 30
[2023-12-21] MEDS: pantoprazole 40 mg SDV IVP ×2 (11:30→21:22)
[2023-12-21 12:29] LABS: Glucose Point of Care 110 mg/dL (70-110)
--- NOTE | 2023-12-21 14:41 | P.PN_ITS ---
Subjective 2 Subjective: HR variable BP stable denies just pain Vitals/I&O/Wt Last Vital Signs Temp 98.6 F 12/21/23 12:50 Pulse 117 H 12/21/23 12:50 Resp 17 12/21/23 12:50 BP 178/104 12/21/23 12:50 Pulse Ox 92 12/21/23 12:50 O2 Del Method Room Air 12/21/23 04:00 FiO2 21 12/21/23 03:10 12/20/23 12/21/23 12/21/23 22:59 06:59 14:59 Intake Total 591.542 / 791.542 200 / 991.542 260.25 / 260.25 Output Total 350 / 350 750 / 750 Balance 591.542 / 791.542 -150 / 641.542 -489.75 / -489.75 Weight last 48 hrs Weight 245 lb Physical Exam 2 Const: COMMON NORMALS: no acute distress and patient oriented x3 HENMT: COMMON NORMALS: normocephalic HEAD & SCALP: normocephalic Eye: COMMON NORMALS: Equal, round and reactive pupils present and EOMs intact bilaterally PUPIL: Yes Equal, round and reactive pupils present Resp: COMMON NORMALS: normal respiratory effort, No retractions, No use of accessory muscles and clear to auscultation bilaterally AUSCULTATION: clear to auscultation bilaterally Cardio: COMMON NORMALS: regular rhythm, S1 normal heart sound present and S2 normal heart sound present RATE: tachycardic RHYTHM: regular rhythm H EART SOUNDS: S1 normal heart sound present and S2 normal heart sound present GI: COMMON NORMALS: Normal to inspection, nondistended, normoactive bowel sounds present and non-tender Extremity: NARRATIVE EXTREMITY EXAM: 1+ pitting edema Neuro: COMMON NORMALS: patient oriented x3, CN's II-XII intact bilaterally and moves all extremities Psych: COMMON NORMALS: mental status grossly normal Data 12/20/23 06:02 12/20/23 06:02 A&P Assessment and plan (1) Atrial flutter with rapid ventricular response: (2) Pyruvate kinase (PK) deficiency anemia: (3) Vertebrobasilar ischemia: (4) Basilar artery stenosis: (5) Acute renal insufficiency: (6) Type 2 diabetes mellitus: (7) Obstructive sleep apnea: (8) Fluid overload: (9) CHF exacerbation: Plan Atrial flutter with rapid ventricular response ? TSH within normal limits, mg replaced status post Cardizem drip, now on PO ? Plan ? Monitor in CSU - PO cardizem, episode of bradycardia and hypotension ovenight. hold PO metoprolol for now, add PRN IV metoprolol ? Monitor electrolytes closely ? Cardiac echo ? Monitor hemoglobin ? heparin drip - plan for cath on 12/21 ? Interestingly patient had a stroke about a year ago he had a stroke 10 years before that, as per Dr. Frazier's documentation, there is concern for cardio embolic source for patient's basilar artery stroke, however he underwent event monitoring was within normal limits, concern is that patient's 2 prior strokes were related to atrial flutter only discovered till now ? He does have a history of pyruvate kinase deficiency, chronic anemia, he has not received blood transfusions in a while has had a splenectomy, as I am starting him on a heparin drip due to concerns for his history of cardioembolic CVAs and atrial flutter being a source, will watch hemoglobin every 6 hours, iron studies, stool studies ? Creatinine monitor ? Low-dose sliding scale ? Does have fluid overload, concerns for CHF exacerbation, 1 dose IV Lasix, cardiac echo ? Continue aspirin, if patient is discharged on Eliquis, likely discontinue Plavix or aspirin ? Full code ? Heparin drip for DVT prophylaxis Attestations 2 Medical Necessity Statement*: Ernie Plasencia requires ongoing inpatient care for cardiac medications Coding Level of Care Code Acute Code for [facility] Diagnoses Atrial flutter with rapid ventricular response I48.92 Pyruvate kinase (PK) deficiency anemia D55.21 Vertebrobasilar ischemia G45.0 Basilar artery stenosis I65.1 Acute renal insufficiency N28.9 Type 2 diabetes mellitus E11.9 Obstructive sleep apnea G47.33 Fluid overload E87.70 CHF exacerbation I50.9
[2023-12-21 15:37] LABS: Basophils # 0.1 10^3/uL (0.0-0.1); Basophils % 0.8 %; Eosinophils # 0.3 10^3/uL (0.0-0.8); Eosinophils % 2.2 %; Hematocrit 31.2 % (37-53); Lymphocytes # 3.4 10^3/uL (0.8-4.8); Lymphocytes % 21.6 %; Mean Corpuscular HGB Conc 30.1 g/dL (30-55); Mean Corpuscular Hemoglobin 34.1 pg (27-33); Mean Platelet Volume 11.4 fL (7.4-10.4); Monocytes # 1.5 10^3/uL (0.2-0.9); Monocytes % 9.6 %; Neutrophils # 10.07 10^3/uL (1.8-7.7); Neutrophils % 64.4 %; Nucleated Red Blood Cells # 0.3 /100WBC; Nucleated Red Blood Cells % 1.7 %; Platelet Count 423 10^3/cmm (157-399); Red Blood Count 2.76 10^6/uL (3.85-5.65); White Blood Count 15.62 10^3/uL (3.29-11.43)
[2023-12-21 15:54] LABS: Alanine Aminotransferase 26 U/L (0-41); Albumin Level 3.4 g/dL (3.5-5.2); Alkaline Phosphatase 84 U/L (40-130); Anion Gap 16.4 (5-19); Aspartate Amino Transferase 23 U/L (0-40); Blood Urea Nitrogen 18 mg/dL (6-20); Calcium 9.2 mg/dL (8.5-10.5); Carbon Dioxide 19 mmol/L (22-29); Chloride 107 mmol/L (98-107); Creatinine Clr Calc Pharmacy 95.0642; Globulin 3.3 g/dL (1.3-4.6); Glomerular Filtration Rate 69.2 mL/min (90-130); Glucose 103 mg/dL (65-115); Osmolality Calculated 288 mOsm/kg (285-295); Potassium 4.4 mmol/L (3.5-5.1); Sodium 138 mmol/L (136-145); Total Protein 6.7 g/dL (6.6-8.7)
[2023-12-21] MEDS: heparin 5,000 unit/mL INJ 1 mL IV (16:14)
[2023-12-21 17:28] LABS: Glucose Point of Care 114 mg/dL (70-110)
[2023-12-21 20:36] LABS: Glucose Point of Care 125 mg/dL (70-110)
[2023-12-21] MEDS: heparin drip 25,000 UNIT/500 ML PREMIX 22 UNIT IV (22:42)
[2023-12-21 23:10] LABS: Partial Thromboplastin Time 56.8 SECONDS (23.9-36.7)
[2023-12-22] VITALS (10 sets, daily range): BP systolic 111–161; BP diastolic 67–99; PULSE 79–115; RESP 10–16; TEMP 36.6–37.1; O2SAT 92–100
[2023-12-22] MEDS: dilTIAZem 60 mg Tablet PO ×4 (03:33→21:21)
[2023-12-22 04:51] LABS: Partial Thromboplastin Time 59.8 SECONDS (23.9-36.7)
[2023-12-22 06:29] LABS: Glucose Point of Care 102 mg/dL (70-110)
--- NOTE | 2023-12-22 07:46 | P.PN_ITS ---
Subjective 2 Subjective: Patient overall doing well. Has been cardioverted back to sinus rhythm. Vitals/I&O/Wt Last Vital Signs Temp 97.8 F 12/22/23 04:00 Pulse 111 H 12/22/23 07:21 Resp 16 12/22/23 07:21 BP 141/86 12/22/23 07:21 Pulse Ox 95 12/22/23 07:21 O2 Del Method High Flow Nasal Cannula 12/22/23 07:21 FiO2 21 12/22/23 03:34 12/21/23 12/22/23 12/22/23 22:59 06:59 14:59 Intake Total 239.750 / 740.000 Output Total 400 / 1150 1150 / 2300 Balance -160.250 / -410.000 -1150 / -1560.000 Weight last 48 hrs Weight 243 lb 1.6 oz Physical Exam 2 Narrative: GENERAL: Patient is alert, awake and oriented x3. [] NECK: No jugular vein distension. [] HEENT: No cyanosis. No icterus. No pallor. [] HEART: Regular S1 and S2. No murmur, rub or gallop. [] LUNGS: Clear to auscultate bilaterally. [] CENTRAL NERVOUS SYSTEM: Grossly nonfocal. [] EXTREMITIES: Lower extremities with 1+ edema bilaterally. Data 12/22/23 09:16 12/22/23 09:16 A&P Assessment and plan (1) Atrial flutter with rapid ventricular response: (2) Pyruvate kinase (PK) deficiency anemia: (3) Vertebrobasilar ischemia: (4) Basilar artery stenosis: (5) Acute renal insufficiency: (6) Type 2 diabetes mellitus: (7) Obstructive sleep apnea: (8) Fluid overload: (9) CHF exacerbation: Plan Patient underwent successful cardioversion back to sinus rhythm. MER was performed prior. Will continue heparin drip till evening. Starting this evening we will start him on anticoagulation with Xarelto 20 mg daily. Mild troponin elevation likely secondary to demand ischemia in setting of atrial flutter with RVR. Will plan on outpatient stress test. No chest pain. Monitor on tele overnight Thank you for involving us with care of this patient. We will continue to follow. Please call with questions. Attestations 2 Medical Necessity Statement*: Care expected to cross 2 midnights Coding Level of Care Code Acute Code for [facility] Diagnoses Atrial flutter with rapid ventricular response I48.92 Pyruvate kinase (PK) deficiency anemia D55.21 Vertebrobasilar ischemia G45.0 Basilar artery stenosis I65.1 Acute renal insufficiency N28.9 Type 2 diabetes mellitus E11.9 Obstructive sleep apnea G47.33 Fluid overload E87.70 CHF exacerbation I50.9
--- NOTE | 2023-12-22 08:52 | PC.NURSE ---
Dr Mcdaniel asked nursing staff to put in for a PTT before he has the MER.
[2023-12-22] MEDS: aspirin 81 mg EC Tablet PO (08:55)
[2023-12-22] MEDS: allopurinol 300 mg Tablet PO (08:55)
[2023-12-22 09:38] LABS: Basophils # 0.1 10^3/uL (0.0-0.1); Basophils % 0.6 %; Eosinophils # 0.3 10^3/uL (0.0-0.8); Eosinophils % 2.3 %; Hematocrit 30.9 % (37-53); Lymphocytes # 3.5 10^3/uL (0.8-4.8); Lymphocytes % 23.5 %; Mean Corpuscular HGB Conc 30.4 g/dL (30-55); Mean Corpuscular Hemoglobin 33.5 pg (27-33); Mean Platelet Volume 11.2 fL (7.4-10.4); Monocytes # 1.5 10^3/uL (0.2-0.9); Monocytes % 10.5 %; Neutrophils # 8.99 10^3/uL (1.8-7.7); Neutrophils % 61.4 %; Nucleated Red Blood Cells # 0.2 /100WBC; Nucleated Red Blood Cells % 1.6 %; Platelet Count 437 10^3/cmm (157-399); Red Blood Count 2.81 10^6/uL (3.85-5.65); Red Cell Distribution Width 15.9 % (12.1-15.1); White Blood Count 14.66 10^3/uL (3.29-11.43)
[2023-12-22 09:53] LABS: Partial Thromboplastin Time 52.1 SECONDS (23.9-36.7)
[2023-12-22 10:06] LABS: Alanine Aminotransferase 29 U/L (0-41); Albumin Level 3.6 g/dL (3.5-5.2); Alkaline Phosphatase 84 U/L (40-130); Anion Gap 16.1 (5-19); Aspartate Amino Transferase 25 U/L (0-40); Blood Urea Nitrogen 21 mg/dL (6-20); Calcium 8.9 mg/dL (8.5-10.5); Carbon Dioxide 21 mmol/L (22-29); Chloride 109 mmol/L (98-107); Globulin 3.2 g/dL (1.3-4.6); Glomerular Filtration Rate 62.6 mL/min (90-130); Glucose 127 mg/dL (65-115); Osmolality Calculated 299 mOsm/kg (285-295); Potassium 4.1 mmol/L (3.5-5.1); Sodium 142 mmol/L (136-145); Total Protein 6.8 g/dL (6.6-8.7)
[2023-12-22] MEDS: heparin 5,000 unit/mL INJ 1 mL IV (10:25)
[2023-12-22] MEDS: pantoprazole 40 mg SDV IVP ×2 (10:25→21:21)
--- NOTE | 2023-12-22 11:30 | USCV_ITS ---
Plasencia Ernie Age: 58 Gender: M : 1965 Exam Date: 12/22/2023 11:51 Ordering Phys: Trey Mcdaniel M.D ([email or web address]) Technologist: CHAD Exam Location: [facility] [place] Indication: card convesion BP: / HR: Rhythm: Sinus Technical Quality: Limited MEASUREMENTS (Male / Female) Normal Values Medications Per anesthesia Complications None Proc. Components After anesthesia team sedated patient, we proceeded with MER probe insertion. FINDINGS Left Ventricle Right Ventricle Right Atrium Left Atrium LA Appendage IA Septum Mitral Valve Aortic Valve Tricuspid Valve Pulmonic Valve Pericardium Aorta CONCLUSIONS Limited images obtained with anesthesia difficulty and drop in O2 sats No left atrial appendage thrombus seen. Trey Mcdaniel MD (Electronically Signed) Final Date: 28 Dec 2023 11:00 S
--- NOTE | 2023-12-22 11:39 | PC.NURSE ---
Patient went to GI lab for MER at 1135.
--- NOTE | 2023-12-22 11:44 | W.PM.OPSUD ---
Surgery/Procedure H&P Update DATE OF PROCEDURE: December 22, 2023 DATE H&P PERFORMED: 12/19/23 H&P UPDATE INFORMATION: I have reviewed H&P completed within last 30 days, I have examined patient prior to procedure and No changes to prior documentation PREOP DIAGNOSIS: Atrial flutter with rapid ventricular rate PRIMARY INDICATION FOR PROCEDURE: Atrial flutter with rapid ventricular rate PLANNED PROCEDURE: Operation Date: 12/22/23 11:30 Proposed Procedures p Cardioversion(Not Applicable) - Shane Mckenzie MER(Not Applicable) - Trey Mcdaniel M.D Anesthesia team available for sedation
--- NOTE | 2023-12-22 12:01 | ECG_ITS ---
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 Measurements Intervals Garrett Rate: 90 P: 58 OH: 177 QRS: 50 QRSD: 105 T: 67 QT: 345 QTc: 423 Interpretive Statements SINUS RHYTHM POSSIBLE LEFT ATRIAL ENLARGEMENT [-0.1mV P-WAVE IN V1/V2] NONSPECIFIC T-WAVE ABNORMALITY Compared to ECG 12/20/2023 10:20:36 Atrial flutter no longer present Possible ischemia no longer present T-wave abnormality still present Electronically Signed On 12-22-2023 12:54:27 CDT by Trey Mcdaniel M.D. [email or web address]
--- NOTE | 2023-12-22 12:04 | PM.PROC ---
Procedure Note: Date of procedure: 12/22/23 Pre-procedure diagnosis: Atrial flutter with rapid ventricular rate Post-procedure diagnosis: other (Normal sinus rhythm) Procedure: Procedure detail: After anesthesia team sedated patient, we proceeded with advancing MER probe. Left atrial appendage thrombus was ruled out. We then proceeded with synchronized cardioversion with 200J shock x 1. Patient converted to normal sinus rhythm successfully. Performing Provider: Trey Mcdaniel Complications: None Condition: stable Disposition: floor Coding Level of Care Code Acute Code for [facility]
--- NOTE | 2023-12-22 12:11 | P.PN_ITS ---
Subjective 2 Subjective: Awaiting MER today Denies chest pain, or shortness of breath Vitals/I&O/Wt Last Vital Signs Temp 98.7 F 12/22/23 12:02 Pulse 92 12/22/23 12:02 Resp 10 L 12/22/23 12:02 BP 111/67 12/22/23 12:02 Pulse Ox 92 12/22/23 12:02 O2 Del Method Room Air 12/22/23 12:02 FiO2 21 12/22/23 03:34 12/21/23 12/22/23 12/22/23 22:59 06:59 14:59 Intake Total 239.750 / 740.000 261.433 / 261.433 Output Total 400 / 1150 1150 / 2300 900 / 900 Balance -160.250 / -410.000 -1150 / -1560.000 -638.567 / -638.567 Weight last 48 hrs Weight 243 lb 1.6 oz Physical Exam 2 Const: COMMON NORMALS: no acute distress and patient oriented x3 HENMT: COMMON NORMALS: normocephalic HEAD & SCALP: normocephalic Eye: COMMON NORMALS: Equal, round and reactive pupils present and EOMs intact bilaterally PUPIL: Yes Equal, round and reactive pupils present Resp: COMMON NORMALS: normal respiratory effort, No retractions, No use of accessory muscles and clear to auscultation bilaterally AUSCULTATION: clear to auscultation bilaterally Cardio: COMMON NORMALS: regular rhythm, S1 normal heart sound present and S2 normal heart sound present RATE: tachycardic RHYTHM: regular rhythm H EART SOUNDS: S1 normal heart sound present and S2 normal heart sound present GI: COMMON NORMALS: Normal to inspection, nondistended, normoactive bowel sounds present and non-tender Extremity: NARRATIVE EXTREMITY EXAM: 1+ pitting edema Neuro: COMMON NORMALS: patient oriented x3, CN's II-XII intact bilaterally and moves all extremities Psych: COMMON NORMALS: mental status grossly normal Data 12/22/23 09:16 12/22/23 09:16 A&P Assessment and plan (1) Atrial flutter with rapid ventricular response: (2) Pyruvate kinase (PK) deficiency anemia: (3) Vertebrobasilar ischemia: (4) Basilar artery stenosis: (5) Acute renal insufficiency: (6) Type 2 diabetes mellitus: (7) Obstructive sleep apnea: (8) Fluid overload: (9) CHF exacerbation: Plan Atrial flutter with rapid ventricular response ? TSH within normal limits, mg replaced status post Cardizem drip, now on PO ? Plan ? Monitor in CSU - PO cardizem, episode of bradycardia and hypotension ovenight. hold PO metoprolol for now, add PRN IV metoprolol ? Monitor electrolytes closely ? Cardiac echo ? Monitor hemoglobin ? heparin drip - plan for MER today ? Interestingly patient had a stroke about a year ago he had a stroke 10 years before that, as per Dr. Frazier's documentation, there is concern for cardio embolic source for patient's basilar artery stroke, however he underwent event monitoring was within normal limits, concern is that patient's 2 prior strokes were related to atrial flutter only discovered till now ? He does have a history of pyruvate kinase deficiency, chronic anemia, he has not received blood transfusions in a while has had a splenectomy, as I am starting him on a heparin drip due to concerns for his history of cardioembolic CVAs and atrial flutter being a source, will watch hemoglobin every 6 hours, iron studies, stool studies ? Creatinine monitor ? Low-dose sliding scale ? Does have fluid overload, concerns for CHF exacerbation, 1 dose IV Lasix, cardiac echo ? Continue aspirin, if patient is discharged on Eliquis, likely discontinue Plavix or aspirin ? Full code ? Heparin drip for DVT prophylaxis Attestations 2 Medical Necessity Statement*: Ernie Plasencia requires ongoing inpatient care for heart rate control Coding Level of Care Code 40838 Diagnoses Atrial flutter with rapid ventricular response I48.92 Pyruvate kinase (PK) deficiency anemia D55.21 Vertebrobasilar ischemia G45.0 Basilar artery stenosis I65.1 Acute renal insufficiency N28.9 Type 2 diabetes mellitus E11.9 Obstructive sleep apnea G47.33 Fluid overload E87.70 CHF exacerbation I50.9
--- NOTE | 2023-12-22 12:41 | PC.NURSE ---
Provider ordered xarelto 20mg to give at 1700. Continue the heparin drip per Dr Mcdaniel.
--- NOTE | 2023-12-22 13:00 | ANES.PREANE2 ---
Pre-Anesthetic Assessment Height/Weight: Height 1.8 m Weight 110.268 kg Temp Pulse Resp BP Pulse Ox O2 Del Method FiO2 98.7 F 93 16 111/70 92 Room Air 21 12/22/23 12:02 12/22/23 12:15 12/22/23 12:15 12/22/23 12:15 12/22/23 12:15 12/22/23 12:15 12/22/23 03:34 Preop Diagnosis: Atrial flutter with rapid ventricular rate Operation Date: 12/22/23 11:30 Proposed Procedures p Cardioversion(Not Applicable) - Shane Mckenzie MER(Not Applicable) - Trey Mcdaniel M.D Familial anesthetic complications: none Was Beta Shama taken within 24 hours: N/A Was Clonidine taken within 24 hours: N/A Social No alcohol and No tobacco Exam alert, oriented x 3 and clear to auscultation bilaterally irregular Airway Submandibular: within normal limits Cervical ROM: within normal limits Mallampati: Class II Dentition: chipped Pulmonary Sleep Apnea CV/HEM Atrial Fibrillation, Coronary Artery Disease, Congestive Heart Failure (EF 40%) and Myocardial Infarction Chronic Renal Insufficiency Metabolic Diabetes Mellitus and Morbid Obesity Neuropsych Headache and Transient Ischemic Attack Anesthetic Plan ASA status: 3 Anesthesia: MAC Medications/Allergies Home Medications Medication Instructions Recorded Confirmed Last Taken Type allopurinol 300 mg tablet 300 mg PO DAILY 08/20/21 12/19/23 12/18/23 History ketorolac 10 mg tablet 10 mg PO Q8H PRN pain #30 tabs 08/15/23 12/19/23 Unknown Rx aspirin 81 mg tablet,delayed 81 mg PO DAILY PRN unknown 12/19/23 12/19/23 Unknown History release Allergies Allergy/AdvReac Type Severity Reaction Status Date / Time No Known Allergies Allergy Verified 12/18/23 18:28 Current Medications Generic Name Dose Route Start Last Admin Trade Name Freq PRN Reason Stop Dose Admin Allopurinol 300 mg 12/19/23 09:00 12/22/23 08:55 Allopurinol 300 Mg Tablet PO 300 mg DAILY ROBBIE Administration Aspirin 81 mg 12/19/23 09:00 12/22/23 08:55 Aspirin 81 Mg Ec Tablet PO 81 mg DAILY ROBBIE Administration Diltiazem HCl 60 mg 12/18/23 22:13 12/22/23 10:25 Diltiazem 60 Mg Tablet PO 60 mg Q6H ROBBIE Administration Heparin Sodium (Porcine) 0 unit 12/18/23 21:46 12/22/23 10:25 Heparin 5,000 Unit/Ml Inj 1 Ml IV 2,200 unit PRN PRN Administration Heparin weight-base protocol Protocol Heparin Sodium/Sodium Chloride 25,000 unit in 500 mls @ 0 mls/hr 12/18/23 22:00 12/22/23 10:35 Heparin Drip IV 10.8 unit/kg/hr .Q0M ROBBIE 24 mls/hr Titration Protocol Per Protocol Insulin Human Lispro 0 unit 12/19/23 08:00 12/22/23 12:56 Insulin Lispro 100 Unit/1 Ml SUBCUT Not Given TIDWM ROBBIE Protocol Metoprolol Tartrate 5 mg 12/20/23 13:56 12/20/23 19:02 Metoprolol Tartrate 1 Mg/1 Ml Sdv 5 Ml IVP 5 mg ONCE PRN Administration HEART RATE-HIGH Pantoprazole Sodium 40 mg 12/18/23 22:13 12/22/23 10:25 Pantoprazole 40 Mg Sdv IVP 40 mg Q12H ROBBIE Administration PFSH Anesthesia Medical History Obstructive sleep apnea Hyperlipidemia Type 2 diabetes mellitus Gout Hx of ischemic vertebrobasilar artery brainstem stroke (2012) Hypertension Pyruvate kinase (PK) deficiency anemia Surgical History History of colonoscopy (2014) History of bone marrow biopsy (01/07/14) Bone marrow aspiration and biopsy at [facility] H/O knee surgery Left knee cap repair - JAVON Taylor - Dr. 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 Daughter Anesthesia complication Mother Cancer Lung Other Diabetes Hyperlipidemia Hypertension Stroke Denies family history of CAD (coronary artery disease) Clotting disorder Dementia Psychiatric illness Chronic kidney disease (CKD) Suicide Bleeding disorder Lung disease Social History Smoking and tobacco/nicotine status: never used tobacco/nicotine Alcohol intake: never Substance/Drug Use: never service: Yes Data Anesthesia 12/22/23 09:16 12/22/23 09:16 Short CBC 12/21/23 12/22/23 Range/Units 15:29 09:16 WBC 15.62 H 14.66 H (3.29-11.43) 10^3/uL Hgb 9.40 L 9.40 L (11.27-16.99) g/dL Hct 31.2 L 30.9 L (37-53) % MCV 113.0 H 110.0 H (82-101) fl Plt Count 423 H 437 H (157-399) 10^3/cmm Neut % (Auto) 64.4 61.4 % Neut # (Auto) 10.07 H 8.99 H (1.8-7.7) 10^3/uL BMP 12/21/23 12/22/23 15:29 09:16 Sodium 138 142 Potassium 4.4 4.1 Chloride 107 109 H Carbon Dioxide 19 L 21 L BUN 18 21 H Creatinine 1.1 1.2 Glucose 103 127 H Calcium 9.2 8.9 Cardiac Enzymes 12/20/23 Range/Units 12:37 Troponin T Hi Sens 6Hr 78.97 H (0-15) ng/L Troponin T Hi Sens 6Hr Delta -10.03 L (0-12) ng/L Liver Function 12/21/23 12/22/23 Range/Units 15:29 09:16 Total Bilirubin 1.0 1.0 (0.15-1.2) mg/dL AST 23 25 (0-40) U/L ALT 26 29 (0-41) U/L Alkaline Phosphatase 84 84 (40-130) U/L Albumin 3.4 L 3.6 (3.5-5.2) g/dL Coags 12/20/23 12/20/23 12/21/23 12:37 18:43 01:44 APTT 75.5 H 65.2 H 58.0 H 12/21/23 12/21/23 12/21/23 08:20 15:29 22:51 APTT 53.3 H 41.0 H 56.8 H 12/22/23 12/22/23 04:23 09:16 APTT 59.8 H 52.1 H Cardiac Studies: Echocardiogram 12/19/23 Sestamibi Stress Test (Cardiology) 03/07/23 Cardiac Event Monitor 01/08/23
--- NOTE | 2023-12-22 13:02 | ANE.PACU2 ---
Inpatient post-anesthesia follow up: Airway intact: Yes Vital signs: Temperature 98.7 F Pulse Rate 93 Respiratory Rate 16 Blood Pressure 111/70 Pulse Oximetry 92 Oxygen Delivery Me thod Room Air Oxygen Flow Rate Fraction of Inspir ed Oxygen 21 Hydration adequate: Yes Nausea and vomiting: No Pain level: 2 Mental status: Baseline
[2023-12-22 14:20] LABS: Partial Thromboplastin Time 64.4 SECONDS (23.9-36.7)
[2023-12-22 16:23] LABS: Glucose Point of Care 230 mg/dL (70-110)
[2023-12-22] MEDS: insulin lispro 100 unit/1 mL SUBCUT (17:41)
[2023-12-22] MEDS: rivaroxaban 10 mg Tablet 20 MG PO (17:41)
[2023-12-22 20:42] LABS: Glucose Point of Care 243 mg/dL (70-110)
[2023-12-23] VITALS: BP 164/89; PULSE 99; TEMP 36.7; O2SAT 90
[2023-12-23 03:43] VITALS: BP 160/83; PULSE 93; TEMP 36.8; O2SAT 90
[2023-12-23 04:17] LABS: Partial Thromboplastin Time 32.6 SECONDS (23.9-36.7)
[2023-12-23] MEDS: dilTIAZem 60 mg Tablet PO (04:56)
[2023-12-23 05:32] VITALS: PULSE 91
[2023-12-23 06:15] LABS: Glucose Point of Care 260 mg/dL (70-110)
[2023-12-23 07:40] VITALS: BP 150/81; PULSE 85; RESP 14; TEMP 36.6; O2SAT 90
--- NOTE | 2023-12-23 08:02 | PM.PN ---
Subjective Subjective: Patient is doing well. no chest pain. Staying in normal sinus rhythm Vitals/I&O/Wt Last Vital Signs Temp 97.9 F 12/23/23 07:40 Pulse 85 12/23/23 07:40 Resp 14 12/23/23 07:40 BP 150/81 12/23/23 07:40 Pulse Ox 90 12/23/23 07:40 O2 Del Method CPAP 12/23/23 07:40 FiO2 21 12/22/23 03:34 12/22/23 12/23/23 12/23/23 22:59 06:59 14:59 Intake Total 142.567 / 740.000 Output Total 250 / 1150 1000 / 2150 Balance -107.433 / -410.000 -1000 / -1410.000 Weight last 48 hrs Weight 245 lb Weight 243 lb 1.6 oz Physical Exam Narrative: GENERAL: Patient is alert, awake and oriented x3. [] NECK: No jugular vein distension. [] HEENT: No cyanosis. No icterus. No pallor. [] HEART: Regular S1 and S2. No murmur, rub or gallop. [] LUNGS: Clear to auscultate bilaterally. [] CENTRAL NERVOUS SYSTEM: Grossly nonfocal. [] EXTREMITIES: Lower extremities with 1+ edema bilaterally. Data 12/23/23 08:55 12/23/23 08:55 A&P Assessment and plan (1) Atrial flutter with rapid ventricular response: (2) Pyruvate kinase (PK) deficiency anemia: (3) Vertebrobasilar ischemia: (4) Basilar artery stenosis: (5) Acute renal insufficiency: (6) Type 2 diabetes mellitus: (7) Obstructive sleep apnea: (8) Fluid overload: (9) CHF exacerbation: Plan Patient is staying in normal sinus rhythm. Continue anticoagulation with Xarelto. Outpatient CBC. Proceed with outpatient stress test. Thank you for involving us with care of this patient. Patient is stable to be discharged from cardiology standpoint. Please call with questions. Attestations Medical Necessity Statement*: Care expected to cross 2 midnights. Coding Level of Care Code Acute Code for [facility] Fwd Diagnoses Atrial flutter with rapid ventricular response I48.92 Pyruvate kinase (PK) deficiency anemia D55.21 Vertebrobasilar ischemia G45.0 Basilar artery stenosis I65.1 Acute renal insufficiency N28.9 Type 2 diabetes mellitus E11.9 Obstructive sleep apnea G47.33 Fluid overload E87.70 CHF exacerbation I50.9
[2023-12-23] MEDS: pantoprazole 40 mg SDV IVP (09:40)
[2023-12-23] MEDS: allopurinol 300 mg Tablet PO (09:40)
[2023-12-23] MEDS: aspirin 81 mg EC Tablet PO (09:40)
[2023-12-23] MEDS: insulin lispro 100 unit/1 mL SUBCUT (09:40)
[2023-12-23] MEDS: rivaroxaban 10 mg Tablet 20 MG PO (09:40)
[2023-12-23 09:42] LABS: Basophils # 0.1 10^3/uL (0.0-0.1); Basophils % 0.5 %; Eosinophils # 0.3 10^3/uL (0.0-0.8); Eosinophils % 1.8 %; Hematocrit 28.4 % (37-53); Lymphocytes # 2.7 10^3/uL (0.8-4.8); Lymphocytes % 15.7 %; Mean Corpuscular HGB Conc 30.3 g/dL (30-55); Mean Corpuscular Hemoglobin 33.7 pg (27-33); Mean Corpuscular Volume 111.4 fl (82-101); Mean Platelet Volume 11.9 fL (7.4-10.4); Monocytes # 1.8 10^3/uL (0.2-0.9); Monocytes % 10.4 %; Neutrophils % 70.3 %; Nucleated Red Blood Cells # 0.2 /100WBC; Nucleated Red Blood Cells % 1.1 %; Platelet Count 389 10^3/cmm (157-399); Red Blood Count 2.55 10^6/uL (3.85-5.65); White Blood Count 17.06 10^3/uL (3.29-11.43)
[2023-12-23] MEDS: dilTIAZem ER (24HR) 300 mg Capsule PO (09:57)
[2023-12-23 10:05] LABS: Alanine Aminotransferase 41 U/L (0-41); Albumin Level 3.6 g/dL (3.5-5.2); Alkaline Phosphatase 85 U/L (40-130); Anion Gap 14.9 (5-19); Aspartate Amino Transferase 31 U/L (0-40); Blood Urea Nitrogen 19 mg/dL (6-20); Calcium 9.4 mg/dL (8.5-10.5); Carbon Dioxide 22 mmol/L (22-29); Chloride 107 mmol/L (98-107); Creatinine Clr Calc Pharmacy 95.0642; Globulin 3.2 g/dL (1.3-4.6); Glomerular Filtration Rate 69.2 mL/min (90-130); Glucose 218 mg/dL (65-115); Osmolality Calculated 299 mOsm/kg (285-295); Potassium 3.9 mmol/L (3.5-5.1); Sodium 140 mmol/L (136-145); Total Protein 6.8 g/dL (6.6-8.7)
--- NOTE | 2023-12-23 10:42 | P.DS_ITS ---
Discharge Providers Date of Admission: 12/18/23 20:42 Date of Discharge: December 23, 2023 Attending Provider at Admission: Lucho Sheffield MD Attending Provider at Discharge: Mira Cespedes MD Primary Care Provider: Yu Lee APN Diagnoses at Discharge Discharge Diagnosis (1) Atrial flutter with rapid ventricular response: Status: Acute (2) Pyruvate kinase (PK) deficiency anemia: Status: Acute (3) Vertebrobasilar ischemia: Status: Acute (4) Basilar artery stenosis: Status: Acute (5) Acute renal insufficiency: Status: Acute (6) Type 2 diabetes mellitus: Status: Acute (7) Obstructive sleep apnea: Status: Acute (8) Fluid overload: Status: Acute (9) CHF exacerbation: Status: Acute Reason for Visit Reason for Visit: 170+ hr resting over 24 hours Urgent car e sent Hospital Course Hospital Course H&P Ernie Plasencia is a 58 year old male with a history of posterior circulation stroke, cerebellar stroke, history of pyruvate kinase deficiency, history of splenectomy, history of chronic anemia, history of type 2 diabetes mellitus, sleep apnea, who presents to [facility] due to chest palpitations. Patient tells me that normally when he exerts himself, he notices that his heart rates go up into the 120s recently has been tracking his blood pressures and his heart rates very closely since his stroke about a year ago. He tells me that typically his heart rates come down after rest. He tells me he has been try to eat healthier, drink lots more water so he has been using knee as seen 5 times a day. Today he tells me his send this morning, he felt flushed as he normally does after taking ASA and but then after that he started noticing chest palpitations and noticed that his heart rates was in the high 160s to 180s, so he came to [facility] for evaluation initial when he came in his heart rates in the 170s and was concerns for SVT so he was given and no card, however his heart rates did not improve, there was concern for atrial flutter with rapid ventricular response, he was placed on Cardizem drip, heart rates have improved in the 120s, currently is alert oriented x 3, following all commands, heart rates between 1 10-1 20, atrial fibrillation, no chest pain, no palpitations, does have lower extremity BON but he denies any shortness of breath, no chest pain Hospital course: Patient is admitted with atrial flutter with rapid ventricular response. Labs ordered including TSH as well as magnesium. Hemoglobin is also monitored. Echocardiogram was done. Cardiology was consulted. Medications were adjusted including IV Lasix was given we continue aspirin, Plavix, metoprolol. The patient was briefly on a Cardizem drip. Transition to oral. Patient's blood count was also closely monitor. Subsequently patient underwent MER with cardioversion. He tolerated procedure well. He was discharged in stable condition. Recommended to follow-up with cardiology in 1 week postdischarge Chronic condition including diabetes, type 2 diabetes, acute renal failure were also addressed Physical Exam Const: COMMON NORMALS: no acute distress and patient oriented x3 HENMT: COMMON NORMALS: normocephalic HEAD & SCALP: normocephalic Eye: COMMON NORMALS: Equal, round and reactive pupils present and EOMs intact bilaterally PUPIL: Yes Equal, round and reactive pupils present Resp: COMMON NORMALS: normal respiratory effort, No retractions, No use of accessory muscles and clear to auscultation bilaterally AUSCULTATION: clear to auscultation bilaterally Cardio: COMMON NORMALS: regular rhythm, S1 normal heart sound present and S2 normal heart sound present RATE: tachycardic RHYTHM: regular rhythm HEART SOUNDS: S1 normal heart sound present and S2 normal heart sound present GI: COMMON NORMALS: Normal to inspection, nondistended, normoactive bowel sounds present and non-tender Extremity: NARRATIVE EXTREMITY EXAM: 1+ pitting edema Neuro: COMMON NORMALS: patient oriented x3, CN's II-XII intact bilaterally and moves all extremities Psych: COMMON NORMALS: mental status grossly normal Discharge Data Studies Completed and Pending Completed Studies During Hospitalization Category Date Time Status XR chest 1V [id number] Stat Exams 12/18/23 19:07 Completed CV. echo complete* [id number] Routine Ultrasound 12/19/23 21:46 Completed Pending at discharge Category Date Time Status CBC Auto Diff [Complete Blood Count w/Auto] AM LABS Lab 12/24/23 08:48 Ordered CMP [Comprehensive Metabolic Panel] AM LABS Lab 12/24/23 08:48 Ordered CV. echo transesophageal [id number] Routine Ultrasound 12/22/23 11:30 Taken Radiology Impressions Chest X-Ray 12/18/23 19:07 IMPRESSION: 1. No acute cardiopulmonary abnormality. Laboratory Results WBC 17.06 10^3/uL (3.29-11.43) H 12/23/23 08:55 RBC 2.55 10^6/uL (3.85-5.65) L 12/23/23 08:55 Hgb 8.60 g/dL (11.27-16.99) L 12/23/23 08:55 Hct 28.4 % (37-53) L 12/23/23 08:55 MCV 111.4 fl (82-101) H 12/23/23 08:55 MCH 33.7 pg (27-33) H 12/23/23 08:55 MCHC 30.3 g/dL (30-55) 12/23/23 08:55 RDW 16.0 % (12.1-15.1) H 12/23/23 08:55 Plt Count 389 10^3/cmm (157-399) 12/23/23 08:55 MPV 11.9 fL (7.4-10.4) H 12/23/23 08:55 Neut % (Auto) 70.3 % 12/23/23 08:55 Lymph % (Auto) 15.7 % 12/23/23 08:55 [place] % (Auto) 10.4 % 12/23/23 08:55 Eos % (Auto) 1.8 % 12/23/23 08:55 Baso % (Auto) 0.5 % 12/23/23 08:55 Neut # (Auto) 12.00 10^3/uL (1.8-7.7) H 12/23/23 08:55 Lymph # (Auto) 2.7 10^3/uL (0.8-4.8) 12/23/23 08:55 [place] # (Auto) 1.8 10^3/uL (0.2-0.9) H 12/23/23 08:55 Eos # (Auto) 0.3 10^3/uL (0.0-0.8) 12/23/23 08:55 Baso # (Auto) 0.1 10^3/uL (0.0-0.1) 12/23/23 08:55 Nucleated RBC % (auto) 1.1 % 12/23/23 08:55 Nucleated RBCs # 0.2 /100WBC 12/23/23 08:55 APTT 32.6 SECONDS (23.9-36.7) 12/23/23 03:47 Sodium 140 mmol/L (136-145) 12/23/23 08:55 Potassium 3.9 mmol/L (3.5-5.1) 12/23/23 08:55 Chloride 107 mmol/L (98-107) 12/23/23 08:55 Carbon Dioxide 22 mmol/L (22-29) 12/23/23 08:55 Anion Gap 14.9 (5-19) 12/23/23 08:55 BUN 19 mg/dL (6-20) 12/23/23 08:55 Creatinine 1.1 mg/dL (0.7-1.2) 12/23/23 08:55 GFR Calculation 69.2 mL/min (90-130) L 12/23/23 08:55 Glucose 218 mg/dL (65-115) H 12/23/23 08:55 POC Glucose 260 mg/dL (70-110) H 12/23/23 06:11 Calculated Osmolality 299 mOsm/kg (285-295) H 12/23/23 08:55 Calcium 9.4 mg/dL (8.5-10.5) 12/23/23 08:55 Magnesium 1.7 mg/dL (1.7-2.3) 12/20/23 06:02 Iron 41 ug/dL (59-158) L 12/18/23 19:14 Ferritin 1928 ng/mL (30-400) H 12/18/23 19:14 Total Bilirubin 1.0 mg/dL (0.15-1.2) 12/23/23 08:55 AST 31 U/L (0-40) 12/23/23 08:55 ALT 41 U/L (0-41) 12/23/23 08:55 Alkaline Phosphatase 85 U/L (40-130) 12/23/23 08:55 Troponin T Baseline 89 ng/L (0-15) H 12/20/23 06:02 Troponin T 120 Minute 79.18 ng/L (0-15) H 12/20/23 08:15 Delta Troponin T -9.82 ABS# (0-10) L 12/20/23 08:15 Troponin T Hi Sens 6Hr 78.97 ng/L (0-15) H 12/20/23 12:37 Troponin T Hi Sens 6Hr Delta -10.03 ng/L (0-12) L 12/20/23 12:37 NT-Pro-B Natriuret Pep 4732 pg/mL (0-125) H 12/18/23 19:14 Total Protein 6.8 g/dL (6.6-8.7) 12/23/23 08:55 Albumin 3.6 g/dL (3.5-5.2) 12/23/23 08:55 Globulin 3.2 g/dL (1.3-4.6) 12/23/23 08:55 Vitamin B12 731 pg/mL (232-1245) 12/18/23 19:14 Folate 6.9 ng/mL (4.5-32.2) 12/18/23 19:14 TSH 1.79 uIU/mL (0.27-4.20) 12/18/23 19:14 Urine Color Yellow (Yellow) 12/18/23 22:45 Urine Appearance Clear (CLEAR) 12/18/23 22:45 Urine pH 5 (5-7) 12/18/23 22:45 Ur Specific [place] 1.020 (1.005-1.030) 12/18/23 22:45 Urine Protein Trace (Negative) 12/18/23 22:45 Urine Glucose (UA) 2+ (Normal) H 12/18/23 22:45 Urine Ketones Negative (Negative) 12/18/23 22:45 Urine Blood Neg (Negative) 12/18/23 22:45 Urine Nitrate Negative (Negative) 12/18/23 22:45 Urine Bilirubin Neg (Negative) 12/18/23 22:45 Urine Urobilinogen Neg mg/dL (Negative) 12/18/23 22:45 Ur Leukocyte Esterase Negative (Negative) 12/18/23 22:45 Urine RBC None /hpf (0-2) 12/18/23 22:45 Urine WBC 0-4 /hpf (0-5) H 12/18/23 22:45 Ur Squamous Epith Cells None /hpf (0-5) 12/18/23 22:45 Amorphous Sediment Not Reportable 12/18/23 22:45 Urine Bacteria None /hpf (NONE) 12/18/23 22:45 Urine Mucus 1+ /hpf 12/18/23 22:45 Urine Sperm 1+ /hpf 12/18/23 22:45 Vitals Last Vital Signs Temp 97.9 F 12/23/23 07:40 Pulse 85 12/23/23 07:40 Resp 14 12/23/23 07:40 BP 150/81 12/23/23 07:40 Pulse Ox 90 12/23/23 07:40 O2 Del Method CPAP 12/23/23 07:40 FiO2 21 12/22/23 03:34 Discharge Plan Discharge Patient Disposition: Home Condition: Stable Prescriptions: New galantamine 12 mg Tablet 12 mg PO BID Qty: 30 0RF rivaroxaban 20 mg tablet 20 mg PO DAILY Qty: 30 0RF diltiazem HCl 300 mg Capsule,Extended Release 24hr 300 mg PO DAILY Qty: 30 0RF Continued allopurinol 300 mg tablet 300 mg PO DAILY Aspir-81 81 mg Tablet,Delayed Release (Dr/Ec) 81 mg PO DAILY PRN (Reason: unknown) Discontinued ketorolac 10 mg tablet 10 mg PO Q8H PRN (Reason: pain) Qty: 30 0RF Discharge Orders: Discharge Order (Routine); Ordered 12/23/23 Ordered By: Mira Cespedes Referrals: Yu Lee APN [Primary Care Provider] - 12/30/23 1:40 pm Kelly Negrete FNP [Nurse Practitioner] - 7-10 days Discharge Diet: Cardiac Discharge Activity: Resume usual activity Patient Instructions: Diltiazem (By mouth), Galantamine (By mouth) (Razadyne, Razadyne ER), Rivaroxaban (By mouth) (Xarelto, Xarelto Starter Pack), Heart Failure (DC), Atrial Flutter (DC), CHF Stoplight, Opioid Safety Discharge Attestations Time Spent in Discharge Care*: less than 30 min Quality Metrics Clinical Quality Measures [ No reported AMI, CVA or VTE this stay] Coding Level of Care Code 00816 Diagnoses Atrial flutter with rapid ventricular response I48.92 Pyruvate kinase (PK) deficiency anemia D55.21 Vertebrobasilar ischemia G45.0 Basilar artery stenosis I65.1 Acute renal insufficiency N28.9 Type 2 diabetes mellitus E11.9 Obstructive sleep apnea G47.33 Fluid overload E87.70 CHF exacerbation I50.9
[2023-12-23 11:27] VITALS: BP 156/93; PULSE 90; RESP 31; TEMP 36.7; O2SAT 96
[2023-12-23 11:31] VITALS: BP 156/93; PULSE 90; RESP 31; TEMP 36.7; O2SAT 96
== END 2023-12-23 12:15 | disposition home or self-care (01) | DRG 310 ==
LOC: ER 19:35 → CSU 20:42
PROVIDERS: Internal Medicine; Admitting Provider Family Medicine; Emergency Provider Emergency Medicine; PCP Nurse Practitioner Family; Visit Provider Internal Medicine
PROC: 5A2204Z Restoration of Cardiac Rhythm, Single (ICD-10-PCS; principal; 2023-12-22 11:30)
PROC: 5A2204Z Restoration of Cardiac Rhythm, Single (ICD-10-PCS; CPT 93312; 2023-12-22 11:30)
DX: I48.92 Unspecified atrial flutter (principal); Z86.73 Personal history of transient ischemic attack (TIA), and cerebral infarction without residual deficits; E78.5 Hyperlipidemia, unspecified; I11.0 Hypertensive heart disease with heart failure; I50.9 Heart failure, unspecified; M10.9 Gout, unspecified; G47.33 Obstructive sleep apnea (adult) (pediatric); D55.21 Anemia due to pyruvate kinase deficiency; R00.1 Bradycardia, unspecified; I95.9 Hypotension, unspecified; I42.9 Cardiomyopathy, unspecified; E11.65 Type 2 diabetes mellitus with hyperglycemia; I48.91 Unspecified atrial fibrillation; N28.9 Disorder of kidney and ureter, unspecified; Z90.81 Acquired absence of spleen; E86.0 Dehydration
CPT/HCPCS: 36415; 36416; 71045; 80048; 80053; 81001; 81015; 82607; 82728; 82746; 82962; 83540; 83630; 83735; 83880; 84443; 84484; 85014; 85018; 85025; 85730; 92960; 93005; 93306; 93312; 93320; 93325; 94660; 96365; 96366; 96367; 96372; 96375; 96376; 99285; C9113; J0153; J1644; J1815; J1940; J2371; J2704; J3475; J3490; J7030; J7040

== ENCOUNTER 2023-12-26 12:13 | Outpatient (CLI) | payer OTHER, SELFPAY ==
--- NOTE | 2023-12-26 11:30 | USCV_ITS ---
Ernie Plasencia Age: 58 Gender: M : 1965 Exam Date: 12/26/2023 13:22 Ordering Phys: Licha Forrest DO Technologist: ERICA [place] [facility] [place] LLE PAIN AND SWELLLING HISTORY: Lower extremity swelling. Lower extremity pain. PROCEDURES: Venous duplex imaging was performed in only the left lower extremity. The following venous structures were evaluated: common femoral vein, profunda vein, proximal portion of the greater saphenous vein, superficial femoral vein, and the popliteal vein. In addition, the posterior tibial and peroneal trunk were evaluated. Serial compression, augmentation maneuvers, and spectral Doppler flow evaluation were performed. FINDINGS: No evidence of DVT seen in any vessel visualized at this time. Veins compress but small intimal DVT would be obscured. Edema seen in Left Lower Leg. CONCLUSIONS No occlusive DVT left lower extremity. Intima not well seen due to scanning technique. Dr. Adwoa Jiménez DO (Electronically Signed) Final Date: 26 Dec 2023 14:28 S
== END 2023-12-26 12:14 | disposition home or self-care (01) ==
LOC: RAD 12:13
PROVIDERS: PCP Nurse Practitioner Family; Visit Provider Emergency Medicine
DX: I82.409 Acute embolism and thrombosis of unspecified deep veins of unspecified lower extremity (principal)
CPT/HCPCS: 93971

== ENCOUNTER 2023-12-27 11:39 | Inpatient (IN) | payer OTHER, SELFPAY ==
[2023-12-27] VITALS (16 sets, daily range): BP systolic 123–186; BP diastolic 58–84; PULSE 85–110; RESP 15–18; TEMP 37.1–38.5; O2SAT 88–97; BMI 34.2; BMI 34.3
--- NOTE | 2023-12-27 11:52 | ED_ITS ---
HPI - General Adult 2 General: Chief complaint: Extremity Problem,Nontraumatic Stated complaint: possible allergic reaction Time Seen by Provider: 12/27/23 11:47 Source: patient Mode of arrival: ambulatory Limitations: no limitations History of Present Illness: 58-year-old male with a history of chron ic kidney disease and recently been admitted for A-fib and had been started on Cardizem he states that since he started the Cardizem he is having lower leg pain and leg swelling with worse swelling in the left leg he states he is just started having some slight right leg swelling. He had an ultrasound yesterday showed no signs of DVT. He denies any shortness of breath denies any chest pain. Denies any fevers or erythema Associated symptoms: Deny chest pain, dyspnea, headache(s), nausea, rash or vomiting Review of Systems 2 Const: Denies: fever(s), chills, body aches or change in appetite ENMT: Denies: throat pain or dental pain Card: Denies: chest pain Resp: Denies: dyspnea GI: Denies: abdominal pain, nausea, vomiting or diarrhea Musc: Reports: extremity pain and extremity swelling; Denies: neck pain or back pain Skin/Breast: Denies: rash Neuro: Denies: headache(s) PFSH ED 2 PFSH: Medical History Type 2 diabetes mellitus Basilar artery stenosis Vertebrobasilar ischemia Obstructive sleep apnea Hyperlipidemia Type 2 diabetes mellitus Gout Hx of ischemic vertebrobasilar artery brainstem stroke (2012) Hypertension Pyruvate kinase (PK) deficiency anemia Surgical History History of colonoscopy (2014) History of bone marrow biopsy (01/07/14) Bone marrow aspiration and biopsy at [facility] H/O knee surgery Left knee cap repair - [facility]sie [facility]JAV[facility] - Dr. 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 Daughter Anesthesia complication Mother Cancer Lung Other Diabetes Hyperlipidemia Hypertension Stroke Denies family history of CAD (coronary artery disease) Clotting disorder Dementia Psychiatric illness Chronic kidney disease (CKD) Suicide Bleeding disorder Lung disease Social History Smoking and tobacco/nicotine status: never used tobacco/nicotine Alcohol intake: never Substance/Drug Use: never service: Yes Physical Exam 2 Const: COMMON NORMALS: no acute distress, patient oriented x3 and healthy appearing HENMT: COMMON NORMALS: normocephalic and atraumatic HEAD & SCALP: n ormocephalic and atraumatic Neck/C-Spine: COMMON NORMALS: full ROM and supple Chest: COMMONS NORMALS: normal inspection of the chest Resp: COMMON NORMALS: normal respiratory effort Cardio: RATE: tachycardic RHYTHM: abnormal rhythm irregularly irregular Extremity: COMMON NORMALS: full ROM NARRATIVE EXTREMITY EXAM: Swelling noted to bilateral legs left greater than right distal pulses intact no erythema noted Neuro: COMMON NORMALS: patient oriented x3, moves all extremities and no focal motor deficits Psych: COMMON NORMALS: mental status grossly normal, Normal thought process present and cooperative THOUGHT PROCESS: Normal thought process present Skin: COMMON NORMALS: no rashes or lesions noted and no wounds GENERAL SKIN EXAM: no rashes or lesions noted Procedures Joint Aspiration/Injection Joint Asp./Inject. 1: Time Out Performed: Yes Side of body: left Joint Aspirated: knee Ultrasound Guidance: No Skin Prep: Povidone-Iodine1% Local Anesthetic: lidocaine 1% Amount of anesthesia used (mL): 8 Needle Size Used: 18G Fluid Obtained: clear Total fluid obtained (mL): 5 Patient Tolerated Procedure: well Complications: none Course 2 Vital Signs: Vital signs: Vital Signs Temperature 101.3 F H 12/27/23 11:50 Pulse Rate 110 H 12/27/23 11:50 Respiratory Rate 17 12/27/23 12:34 Blood Pressure 130/64 12/27/23 14:30 Pulse Oximetry 90 12/27/23 14:30 [facility] - General Adult Medical Decision Making Patient presents here with joint pain leg swelling also fever. He is febrile here he does have an elevated inflammatory markers as well. Did give him 2 L of fluids did not give him full sepsis bolus does have swelling and worried about fluid overload he has not been hypotensive here. Did do an arthrocentesis his left knee he is having left knee pain no signs of septic joint on the fluid analysis will follow blood cultures and fluid analysis cultures discharge antibiotics spoke to the hospitalist will admit for observation Medical Records I reviewed the patient's medical records. Lab Data I reviewed the patient's lab results. 12/27/23 11:55 12/27/23 11:55 Radiology Impressions Chest X-Ray 12/27/23 12:16 IMPRESSION: Minimal atelectatic changes in left lung base. Laboratory Results WBC 15.95 10^3/uL (3.29-11.43) H 12/27/23 11:55 RBC 2.26 10^6/uL (3.85-5.65) L 12/27/23 11:55 Hgb 7.40 g/dL (11.27-16.99) L 12/27/23 11:55 Hct 23.7 % (37-53) L 12/27/23 11:55 MCV 104.9 fl (82-101) H 12/27/23 11:55 MCH 32.7 pg (27-33) 12/27/23 11:55 MCHC 31.2 g/dL (30-55) 12/27/23 11:55 RDW 16.1 % (12.1-15.1) H 12/27/23 11:55 Plt Count 404 10^3/cmm (157-399) H 12/27/23 11:55 MPV 10.8 fL (7.4-10.4) H 12/27/23 11:55 Neut % (Auto) 72.6 % 12/27/23 11:55 Lymph % (Auto) 9.3 % 12/27/23 11:55 Wilkes % (Auto) 16.9 % 12/27/23 11:55 Eos % (Auto) 0.2 % 12/27/23 11:55 Baso % (Auto) 0.4 % 12/27/23 11:55 Neut # (Auto) 11.59 10^3/uL (1.8-7.7) H 12/27/23 11:55 Lymph # (Auto) 1.5 10^3/uL (0.8-4.8) 12/27/23 11:55 Wilkes # (Auto) 2.7 10^3/uL (0.2-0.9) H 12/27/23 11:55 Eos # (Auto) 0.0 10^3/uL (0.0-0.8) 12/27/23 11:55 Baso # (Auto) 0.1 10^3/uL (0.0-0.1) 12/27/23 11:55 Nucleated RBC % (auto) 0.4 % 12/27/23 11:55 Nucleated RBCs # 0.1 /100WBC 12/27/23 11:55 ESR 49 mm/hr (0-10) H 12/27/23 11:55 PT 19.10 SECONDS (12.1-14.9) H 12/27/23 11:55 INR 1.55 (0.8-1.2) H 12/27/23 11:55 Sodium 129 mmol/L (136-145) L 12/27/23 11:55 Potassium 5.2 mmol/L (3.5-5.1) H 12/27/23 11:55 Chloride 97 mmol/L (98-107) L 12/27/23 11:55 Carbon Dioxide 19 mmol/L (22-29) L 12/27/23 11:55 Anion Gap 18.2 (5-19) 12/27/23 11:55 BUN 29 mg/dL (6-20) H 12/27/23 11:55 Creatinine 1.6 mg/dL (0.7-1.2) H 12/27/23 11:55 GFR Calculation 44.9 mL/min (90-130) L 12/27/23 11:55 Glucose 182 mg/dL (65-115) H 12/27/23 11:55 Calculated Osmolality 278 mOsm/kg (285-295) L 12/27/23 11:55 Lactic Acid 1.1 mmol/L (0.5-2.2) 12/27/23 11:55 Calcium 9.5 mg/dL (8.5-10.5) 12/27/23 11:55 Total Bilirubin 2.0 mg/dL (0.15-1.2) H 12/27/23 11:55 AST 22 U/L (0-40) 12/27/23 11:55 ALT 35 U/L (0-41) 12/27/23 11:55 Alkaline Phosphatase 103 U/L (40-130) 12/27/23 11:55 C-Reactive Protein 184.1 mg/L (0.0-4.9) H 12/27/23 11:55 NT-Pro-B Natriuret Pep 890 pg/mL (0-125) H 12/27/23 11:55 Total Protein 7.7 g/dL (6.6-8.7) 12/27/23 11:55 Albumin 3.7 g/dL (3.5-5.2) 12/27/23 11:55 Globulin 4.0 g/dL (1.3-4.6) 12/27/23 11:55 Fluid Crystals See path consult 12/27/23 13:42 Synovial Color Red (PALE YELLOW) 12/27/23 13:42 Synovial Appearance Cloudy (CLEAR) 12/27/23 13:42 Synovial WBC 9394 /uL (0-150) H 12/27/23 13:42 Synovial RBC 45 10^3/uL (0-0) H 12/27/23 13:42 Synovial Mononuclear 1.016 10^3/uL 12/27/23 13:42 Synov Polynuclear WBCs 8.378 10^3/uL 12/27/23 13:42 Synovial Polynuclear % 89.100 % 12/27/23 13:42 Synovial Mononuclear % 10.900 % 12/27/23 13:42 All radiology interpretation(s) finalized by discharge EKG Data EKG 1: I personally reviewed and interpreted this EKG as follows: EKG interpretation date: 12/27/23 EKG interpretation time: 12:12 Interpretation: sinus tach hr [address] or t wave abnormalities qrs 100 qtc 357 Computer generated interpretation: Chest X-Ray 12/27/23 12:16 IMPRESSION: Minimal atelectatic changes in left lung base. Discharge Plan Discharge Condition: Stable Prescriptions: No Action allopurinol 300 mg tablet 300 mg PO DAILY tramadol 50 mg tablet 50 mg PO TID PRN (Reason: Pain) aspirin 81 mg Tablet,Delayed Release (Dr/Ec) 81 mg PO DAILY galantamine 12 mg Tablet 12 mg PO BID Qty: 30 0RF rivaroxaban 20 mg tablet 20 mg PO DAILY Qty: 30 0RF diltiazem HCl 300 mg Capsule,Extended Release 24hr 300 mg PO DAILY Qty: 30 0RF Referrals: Yu Lee APN [Primary Care Provider] - Coding Level of Care Code ED [employer] for g Elías
[2023-12-27 11:59] LABS: Basophils # 0.1 10^3/uL (0.0-0.1); Basophils % 0.4 %; Eosinophils % 0.2 %; Hematocrit 23.7 % (37-53); Lymphocytes # 1.5 10^3/uL (0.8-4.8); Lymphocytes % 9.3 %; Mean Corpuscular HGB Conc 31.2 g/dL (30-55); Mean Corpuscular Hemoglobin 32.7 pg (27-33); Mean Corpuscular Volume 104.9 fl (82-101); Mean Platelet Volume 10.8 fL (7.4-10.4); Monocytes # 2.7 10^3/uL (0.2-0.9); Monocytes % 16.9 %; Neutrophils # 11.59 10^3/uL (1.8-7.7); Neutrophils % 72.6 %; Nucleated Red Blood Cells # 0.1 /100WBC; Nucleated Red Blood Cells % 0.4 %; Platelet Count 404 10^3/cmm (157-399); Red Blood Count 2.26 10^6/uL (3.85-5.65); Red Cell Distribution Width 16.1 % (12.1-15.1); White Blood Count 15.95 10^3/uL (3.29-11.43)
[2023-12-27 12:02] LABS: Erythrocyte Sedimentation Rate 49 mm/hr (0-10)
--- NOTE | 2023-12-27 12:12 | ECG_ITS ---
[facility] Test Date: 2023-12-27 Pat Name: Ernie Plasencia Department: Room: Gender: Male [employer]: : 1965 Requested By: Lynette Hood Order Number: [id number] Melina MD: Sera Benjamin M.D. Measurements Intervals [place] Rate: 105 P: 68 MD: 162 QRS: 73 QRSD: 100 T: 90 QT: 296 QTc: 393 Interpretive Statements SINUS TACHYCARDIA NONSPECIFIC ST & T-WAVE ABNORMALITY ABNORMAL RHYTHM ECG Compared to ECG 12/22/2023 12:15:46 Sinus rhythm no longer present T-wave abnormality still present Electronically Signed On 12-27-2023 20:21:52 CDT by Sera Benjamin M.D. [id number]
--- NOTE | 2023-12-27 12:16 | XRR_ITS ---
PROCEDURE INFORMATION: Exam: XR Chest Exam date and time: 12/27/2023 12:45 PM Age: 58 years old Clinical indication: Patient HX: Fever; Recent afib diagnosis with cardioversion last week TECHNIQUE: Imaging protocol: Radiologic exam of the chest. Views: 1 view. COMPARISON: CR (CHEST, ) 12/18/2023 8:19 PM FINDINGS: Lungs: Minimal atelectasis in left lung base. No consolidation. Pleural spaces: Unremarkable. No pleural effusion. No pneumothorax. Heart/Mediastinum: Stable cardiomegaly. Bones/joints: Unremarkable. XR/XR chest 1V portable [id number] IMPRESSION: Minimal atelectatic changes in left lung base.
[2023-12-27 12:22] LABS: INR 1.55 (0.8-1.2)
[2023-12-27 12:26] LABS: Alanine Aminotransferase 35 U/L (0-41); Albumin Level 3.7 g/dL (3.5-5.2); Alkaline Phosphatase 103 U/L (40-130); Anion Gap 18.2 (5-19); Aspartate Amino Transferase 22 U/L (0-40); Blood Urea Nitrogen 29 mg/dL (6-20); C Reactive Protein 184.1 mg/L (0.0-4.9); Calcium 9.5 mg/dL (8.5-10.5); Carbon Dioxide 19 mmol/L (22-29); Chloride 97 mmol/L (98-107); Glomerular Filtration Rate 44.9 mL/min (90-130); Glucose 182 mg/dL (65-115); Lactic Sepsis W/Reflex 1.1 mmol/L (0.5-2.2); NT Pro B Type Natriuretic Pept 890 pg/mL (0-125); Osmolality Calculated 278 mOsm/kg (285-295); Potassium 5.2 mmol/L (3.5-5.1); Sodium 129 mmol/L (136-145); Total Protein 7.7 g/dL (6.6-8.7)
[2023-12-27] MEDS: morphine 4 mg/mL SDV 1 mL IVP (12:34)
[2023-12-27] MEDS: ondansetron 2 mg/ML SDV 2 mL 4 MG IVP (12:34)
[2023-12-27] MEDS: acetaminophen 500 mg Tablet 1000 MG PO (12:37)
[2023-12-27] MEDS: cefTRIAXone 1,000 MG in sodium chloride 0.9% (plus) 50 ML 100 MG IV (13:06)
[2023-12-27 13:14] LABS: Creatinine Clr Calc Pharmacy 65.3567
[2023-12-27] MEDS: azithromycin 500 MG in sodium chloride 0.9% 250 ML 250 MG IV (13:58)
[2023-12-27] MEDS: sodium chloride 0.9% 1,000 ML 999 ML IV ×2 (13:59→14:39)
[2023-12-27] MEDS: lidocaine 1% INJ 20 mL SUBCUT (13:59)
--- NOTE | 2023-12-27 14:48 | PM.HP ---
Providers/Chief Complaint Primary Care Provider: Yu Lee APN Chief Complaint: possible allergic reaction History of Present Illness Ernie Plasencia is a 58 year old male with a past medical history significant for type 2 diabetes mellitus, basilar artery stenosis with vertebrobasilar ischemia, obstructive sleep apnea, hyperlipidemia, gout, hypertension, and pyruvate kinase deficiency who presents emergency department with severe left leg pain and swelling. Of note, patient was recently admitted to the hospital for atrial flutter with rapid ventricular response. He underwent cardioversion. Patient was discharged on Xarelto and Cardizem. He states he felt amazing until immediately after was walking to his truck on day of discharge. He developed severe leg pain. He states that the symptoms have progressively worsened daily. He was evaluated yesterday in clinic where DVT was considered however venous Doppler ultrasound was negative. Symptoms continued to worsen which she ultimately came to the emergency department today. In the emergency department, he was found to be tachycardic with heart rate of 110, febrile with temperature of 101.3, elevated creatinine, and with leukocytosis of 15.95. Does have a history of a splenectomy. He does report tick exposure earlier this year. He denies any rashes, dysuria, cough, or other infectious symptoms. Patient feels like his presentation is likely secondary to the Cardizem. He describes his leg pain is severe. He states it is the entire leg. Minimal movement causes severe pain and is having trouble ambulating. He was started on IV antibiotics and underwent left knee aspiration with results pending. Review of Systems Narrative: A complete review of systems was obtained and is negative except as stated in HPI. Medications/Allergies Home Medications Medication Instructions Recorded Confirmed Last Taken Type allopurinol 300 mg tablet 300 mg PO DAILY 08/20/21 12/27/23 12/27/23 History aspirin 81 mg tablet,delayed 81 mg PO DAILY unknown 12/19/23 12/27/23 12/27/23 History release diltiazem HCl 300 mg 300 mg PO DAILY #30 caps 12/23/23 12/27/23 Unknown Rx capsule,extended release 24 hr galantamine 12 mg tablet 12 mg PO BID #30 tabs 12/23/23 12/27/23 12/27/23 Rx rivaroxaban 20 mg tablet 20 mg PO DAILY #30 tabs 12/23/23 12/27/23 12/27/23 Rx tramadol 50 mg tablet 50 mg PO TID PRN Pain 12/26/23 12/27/23 Unknown History Allergies Allergy/AdvReac Type Severity Reaction Status Date / Time No Known Allergies Allergy Verified 12/27/23 10:52 PFSH Acute PFSH: Medical History Type 2 diabetes mellitus Basilar artery stenosis Vertebrobasilar ischemia Obstructive sleep apnea Hyperlipidemia Type 2 diabetes mellitus Gout Hx of ischemic vertebrobasilar artery brainstem stroke (2012) Hypertension Pyruvate kinase (PK) deficiency anemia Surgical History History of colonoscopy (2014) History of bone marrow biopsy (01/07/14) Bone marrow aspiration and biopsy at [facility] H/O knee surgery Left knee cap repair - JAVON Taylor - Dr. 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 Daughter Anesthesia complication Mother Cancer Lung Other Diabetes Hyperlipidemia Hypertension Stroke Denies family history of CAD (coronary artery disease) Clotting disorder Dementia Psychiatric illness Chronic kidney disease (CKD) Suicide Bleeding disorder Lung disease Social History Smoking and tobacco/nicotine status: never used tobacco/nicotine Alcohol intake: never Substance/Drug Use: never service: Yes Vitals/I&O/Wt Last Vital Signs Temp 101.3 F H 12/27/23 11:50 Pulse 110 H 12/27/23 11:50 Resp 17 12/27/23 12:34 BP 154/73 12/27/23 12:40 Pulse Ox 90 12/27/23 12:40 12/26/23 12/27/23 12/27/23 22:59 06:59 14:59 Intake Total 50 / 50 Balance 50 / 50 Weight last 48 hrs Weight 111.13 kg Physical Exam Narrative: General: Patient is awake and alert. Head: Normocephalic. Atraumatic. EOM intact. Neck: No JVD. Cardiovascular: No gallops. No murmurs. Non-pitting edema in bilateral lower extremities. Tachycardic. Lungs: Clear to auscultation, no use of accessory muscles, no crackles or wheezes. Skin: No jaundice. No rashes. Abdomen: Normal bowel sounds, abdomen soft and nontender. Genito Urinary: Genital exam not performed since complaints not related. Rectal: Rectal exam not performed since no symptoms indicated blood loss. Extremities: No cyanosis or clubbing. Musculoskeletal: Left lower extremity is swollen with non-pitting edema. Not overly sensitive to touch but deep palpation is uncomfortable. Neurological: Moves all 4 extremities. No myoclonus. Data 12/27/23 11:55 12/27/23 11:55 Micro: Microbiology 12/27/23 12:10 Blood Culture - Preliminary Blood SPECIMEN COLLECTED 12/27/23 12:19 Blood Culture - Preliminary Blood SPECIMEN COLLECTED A&P Assessment and plan (1) Leg pain, left: Left leg with nonpitting edema and severe pain with decreased mobility Could possibly be a side effect of his calcium channel angelita, will hold for now No obvious cellulitis on exam Follow-up synovial fluid labs Serial exams Supportive care Analgesics as needed (2) Atrial flutter: Hold calcium channel angelita due to concern for possible side effect Recent echo reviewed, notable for ejection fraction of 40% Continue home Xarelto Start metoprolol to tartrate Will ask cardiology to evaluate given he follows with this group Continuous telemetry monitoring (3) Febrile: Patient meets SIRS criteria with tachycardia, leukocytosis, febrile Source unclear, query possible tick related illness Received IV fluids x 2 L boluses in ED, hold off on further fluids due to leg edema and reduced EF Start broad-spectrum antibiotics for now 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 Plan DVT prophylaxis: Xarelto CODE STATUS: Full code Attestations Medical Necessity Statement*: Patient presents with severe leg pain, found to meet SIRS criteria with concern for possible underlying sepsis which she will be admitted for IV antibiotics, cultures, adjustment of cardiac medications, telemetry monitoring, and supportive care. Coding Level of Care Code Acute Code for [facility] Fwd Diagnoses Leg pain, left M79.605 Atrial flutter I48.92 Febrile R50.9 Leukocytosis D72.829 Acute kidney injury N17.9 Macrocytic anemia D53.9
[2023-12-27 14:52] LABS: Crystals, Fluid See Path Consult
[2023-12-27 15:05] LABS: RBC Synovial Fluid 45 10^3/uL (0-0); Synovial Fluid Mononuclear # 1.016 10^3/uL; Synovial Fluid Polynuclear # 8.378 10^3/uL; WBC Synovial Fluid 9394 /uL (0-150)
[2023-12-27 15:07] LABS: Appearance Synovial Fluid CLOUDY (CLEAR); Color Synovial Fluid RED (PALE YELLOW)
[2023-12-27 15:17] LABS: PATH Referal YES
[2023-12-27] MEDS: doxycycline 100 mg Tablet PO (17:28)
[2023-12-27] MEDS: vancomycin 1,500 MG/300 ML PIGGYBACK 200 MG IV (17:28)
[2023-12-27] MEDS: GALANTAMINE 12 MG 12 EACH PO (18:56)
[2023-12-27 19:11] LABS: Add Urine Microscopic? YES; Amorphous Sediment Urine 1+ /hpf; Bacteria Urine 2+ /hpf; Bilirubin Urine 1+ (Negative); Blood Urine Neg (Negative); Glucose Urine UA Norm (Normal); Ketones Urine 1+ (Negative); Leukocyte Esterase Urine Trace (Negative); Mucus Urine TRACE /hpf; Nitrate Urine Negative (Negative); Protein Urine 1+ (Negative); RBC Urine 0-4 /hpf (0-2); Specific Gravity, Urine 1.015 (1.005-1.030); Sperm Urine 1+ /hpf; Squamous Epithelial Cell Urine 0-4 /hpf (0-5); Urine Appearance Clear (CLEAR); Urine Color Yellow (Yellow); Urobilinogen Urine 4 mg/dL (Negative); WBC Urine 0-4 /hpf (0-5); pH Urine 5 (5-7)
[2023-12-27] MEDS: metoprolol tartrate 50 mg Tablet PO (20:31)
[2023-12-28] VITALS (19 sets, daily range): BP systolic 112–152; BP diastolic 64–77; PULSE 73–96; RESP 15–18; TEMP 36.8–37.3; O2SAT 89–95; BMI 33.6
[2023-12-28] MEDS: vancomycin 1,500 MG/300 ML PIGGYBACK 200 MG IV ×2 (05:24→16:10)
[2023-12-28] MEDS: oxyCODONE 5 mg IR Tab/Cap PO ×2 (05:55→11:28)
[2023-12-28 06:14] LABS: Basophils # 0.1 10^3/uL (0.0-0.1); Basophils % 0.5 %; Eosinophils # 0.1 10^3/uL (0.0-0.8); Eosinophils % 0.5 %; Lymphocytes # 2.3 10^3/uL (0.8-4.8); Lymphocytes % 15.2 %; Mean Corpuscular HGB Conc 32.2 g/dL (30-55); Mean Corpuscular Volume 102.5 fl (82-101); Mean Platelet Volume 11.2 fL (7.4-10.4); Monocytes # 2.5 10^3/uL (0.2-0.9); Monocytes % 16.8 %; Neutrophils # 9.84 10^3/uL (1.8-7.7); Neutrophils % 66.5 %; Nucleated Red Blood Cells % 0.3 %; Platelet Count 404 10^3/cmm (157-399); Red Cell Distribution Width 16.8 % (12.1-15.1); White Blood Count 14.83 10^3/uL (3.29-11.43)
[2023-12-28 06:20] LABS: Hematocrit 20.5 % (37-53)
[2023-12-28 06:32] LABS: Alanine Aminotransferase 32 U/L (0-41); Albumin Level 3.6 g/dL (3.5-5.2); Alkaline Phosphatase 100 U/L (40-130); Anion Gap 15.7 (5-19); Aspartate Amino Transferase 17 U/L (0-40); Blood Urea Nitrogen 31 mg/dL (6-20); Calcium 8.8 mg/dL (8.5-10.5); Carbon Dioxide 21 mmol/L (22-29); Chloride 101 mmol/L (98-107); Creatinine Clr Calc Pharmacy 64.8407; Globulin 3.7 g/dL (1.3-4.6); Glomerular Filtration Rate 44.9 mL/min (90-130); Glucose 122 mg/dL (65-115); Magnesium 1.7 mg/dL (1.7-2.3); Osmolality Calculated 284 mOsm/kg (285-295); Phosphorus 3.2 mg/dL (2.5-4.5); Potassium 4.7 mmol/L (3.5-5.1); Sodium 133 mmol/L (136-145); Total Bilirubin 1.5 mg/dL (0.15-1.2); Total Protein 7.3 g/dL (6.6-8.7)
--- NOTE | 2023-12-28 07:22 | PC.NURSE ---
Patient was given home meds at 1815, by this nurse, on 12/27/23 per previous med order given by physician. Xarelto 20mg one tablet PO and Allopurinol 300mg one tablet PO. Pharmacy switched order to give stock meds to patient starting today 12/28/23, per policy.
--- NOTE | 2023-12-28 07:25 | PC.NURSE ---
Patient Hct 20.7 this morning. Physician notified and ordered 1 unit PRBC. Plan of care ongoing.
[2023-12-28 08:52] LABS: C Reactive Protein 210.2 mg/L (0.0-4.9)
[2023-12-28 08:59] LABS: Procalcitonin 0.93 ng/mL (0-0.5)
[2023-12-28] MEDS: aspirin 81 mg EC Tablet PO (09:03)
[2023-12-28] MEDS: doxycycline 100 mg Tablet PO ×2 (09:03→17:25)
[2023-12-28] MEDS: cefTRIAXone 1,000 MG in sodium chloride 0.9% (plus) 50 ML 100 MG IV (09:04)
[2023-12-28] MEDS: allopurinol 300 mg Tablet PO (09:04)
[2023-12-28] MEDS: metoprolol tartrate 50 mg Tablet PO ×2 (09:04→19:58)
[2023-12-28] MEDS: FUROsemide 10 mg/mL SDV 4mL 40 MG IVP (09:04)
--- NOTE | 2023-12-28 09:54 | P.CONIM_ITS ---
Providers/Reason For Consult 2 Consulting Physician/Specialty*: ALEXANDER Benjamin MD/cardiology Reason for Consult*: Patient with history of atrial fibrillation now presenting with the peripheral edema Requesting Physician: Dr. Lorenz Attending Physician: Umair Lorenz MD Primary Care Provider: Yu Lee APN History of Present Illness History of Present Illness Ernie Plasencia is a 58 year old male, who was recently discharged from the hospital where he was admitted with new onset of atrial fibrillation with rapid ventricular rate. He was treated with IV Cardizem followed by p.o. Cardizem to 300 mg daily. According the patient, he started having some leg pain and swelling on the day of his discharge which is Getting worse in the last few days. He been having swelling of both lower extremities and pain in the knee joints. Patient attributes this to the diltiazem. According to him, he never had these symptoms before. He was cardioverted during his last hospital admission. Apparently he seems to be staying in the normal sinus rhythm since then. No documented fibrillation or flutter since the cardioversion. He was not placed on any antiarrhythmic drugs following this. He was taking Xarelto and aspirin. He has no chest pain or chest tightness. No unusual shortness of breath. 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 He had blood transfusions in the past. He also had 2 CVAs, the last one was a year ago. He was evaluated by Dr. Mcdaniel last year for some atypical chest symptoms. He had a Myocardial perfusion imaging which revealed an area of fixed defect with a small area of reversible defect suggesting myocardial scarring with a possible preinfarction ischemia in the distribution of the right coronary artery. Since the patient did not have any significant chest symptoms, it was opted to treat him medically. He is also known to have chronic kidney disease He had a venous Doppler examination of the lower extremity x 2 since the start of his current symptoms and was found no evidence of DVT. He denies any fever, chills or cough. Patient attributes the atrial fibrillation to the intake of high dose of niacin prior to the last hospital admission. He has no previous history for any cardiac illness. Has a history of high blood pressure and type 2 diabetes. The cholesterol status is not known. He took himself off most of his medications, prior to the last hospital admission. He was controlling this with dietary modifications and exercise. Review of Systems 2 Narrative: CONSTITUTIONAL: No fever or chills. EYES: No blurring of vision or other visual disturbances lately. ENT: No hoarseness of voice, auditory disturbances or sore throat. CARDIOVASCULAR: As mentioned above. RESPIRATORY: No significant cough. GASTROINTESTINAL: No hematemesis or melena. GENITOURINARY: No dysuria or hematuria. INTEGUMENTARY: No skin rashes or history of skin cancer. NEURO: History of CVA x 2 PSYCHIATRIC: No history of psychosis or major depression. HEMATOLOGIC: Chronic anemia, PKD and CKD ENDOCRINE: No history of polyuria or polydipsia. MUSCULOSKELETAL: No recent joint pain or swelling. ALLERGY/IMMUNOLOGY: As mentioned above. Medications/Allergies Home Medications Medication Instructions Recorded Confirmed Last Taken Type allopurinol 300 mg tablet 300 mg PO DAILY 08/20/21 12/27/23 12/27/23 History aspirin 81 mg tablet,delayed 81 mg PO DAILY unknown 12/19/23 12/27/23 12/27/23 History release diltiazem HCl 300 mg 300 mg PO DAILY #30 caps 12/23/23 12/27/23 Unknown Rx capsule,extended release 24 hr galantamine 12 mg tablet 12 mg PO BID #30 tabs 12/23/23 12/27/23 12/27/23 Rx rivaroxaban 20 mg tablet 20 mg PO DAILY #30 tabs 12/23/23 12/27/23 12/27/23 Rx tramadol 50 mg tablet 50 mg PO TID PRN Pain 12/26/23 12/27/23 Unknown History Allergies Allergy/AdvReac Type Severity Reaction Status Date / Time No Known Allergies Allergy Verified 12/27/23 10:52 Current Medications Generic Name Dose Route Start Last Admin Trade Name Freq PRN Reason Stop Dose Admin Allopurinol 300 mg 12/28/23 09:00 12/28/23 09:04 Allopurinol 300 Mg Tablet PO 300 mg DAILY ROBBIE Administration Aspirin 81 mg 12/28/23 09:00 12/28/23 09:03 Aspirin 81 Mg Ec Tablet PO 81 mg DAILY ROBBIE Administration Doxycycline Monohydrate 100 mg 12/27/23 18:00 12/28/23 09:03 Doxycycline 100 Mg Tablet PO 100 mg BID ROBBIE Administration Protocol Furosemide 40 mg 12/28/23 08:15 12/28/23 09:04 Furosemide 10 Mg/Ml Sdv 4ml IVP 40 mg Q24H ROBBIE Administration Ceftriaxone Sodium 1,000 mg/ 50 mls @ 100 mls/hr 12/28/23 09:00 12/28/23 09:04 Sodium Chloride IV 100 mls/hr DAILY ROBBIE Administration Protocol Vancomycin/PEG/NADA/Lysine/Water 1,500 mg in 300 mls @ 200 mls/hr 12/27/23 16:00 12/28/23 07:33 Vancocin IV Infused Q12H ROBBIE Infusion Metoprolol Tartrate 50 mg 12/27/23 20:00 12/28/23 09:04 Metoprolol Tartrate 50 Mg Tablet PO 50 mg Q12H ROBBIE Administration Non-Formulary Medication 12 mg 12/27/23 18:00 12/27/23 18:56 Galantamine PO 12 mg BID ROBBIE Administration Oxycodone HCl 5 mg 12/27/23 15:13 12/28/23 05:55 Oxycodone 5 Mg Ir Tab/Cap PO 5 mg Q4H PRN Administration SEVERE PAIN Rivaroxaban 20 mg 12/28/23 09:00 12/28/23 08:29 Rivaroxaban 10 Mg Tablet PO Not Given DAILY ROBBIE Senna 17.2 mg 12/27/23 21:00 12/27/23 20:33 Sennosides 8.6 Mg Tablet PO Not Given BEDTIME ROBBIE PFSH Acute 2 PFSH: Medical History (Updated 12/28/23 @ 10:33 by eSra Benjamin MD) Pyruvate kinase (PK) deficiency anemia Type 2 diabetes mellitus Basilar artery stenosis Vertebrobasilar ischemia Obstructive sleep apnea Hyperlipidemia Type 2 diabetes mellitus Gout Hx of ischemic vertebrobasilar artery brainstem stroke (2012) Hypertension Surgical History History of colonoscopy (2014) History of bone marrow biopsy (01/07/14) Bone marrow aspiration and biopsy at [facility] H/O knee surgery Left knee cap repair - JAVON Taylor - Dr. 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 Daughter Anesthesia complication Mother Cancer Lung Other Diabetes Hyperlipidemia Hypertension Stroke Denies family history of CAD (coronary artery disease) Clotting disorder Dementia Psychiatric illness Chronic kidney disease (CKD) Suicide Bleeding disorder Lung disease Social History Smoking and tobacco/nicotine status: never used tobacco/nicotine Alcohol intake: never Substance/Drug Use: never service: Yes Vitals/I&O/Wt Last Vital Signs Temp 98.6 F 12/28/23 07:59 Pulse 96 12/28/23 07:59 Resp 16 12/28/23 07:59 BP 141/74 12/28/23 07:59 Pulse Ox 90 12/28/23 07:59 O2 Del Method Room Air 12/28/23 07:59 FiO2 21 12/27/23 21:15 12/27/23 12/28/23 12/28/23 22:59 06:59 14:59 Intake Total 2550 / 2600 300 / 300 Output Total 500 / 500 Balance 2050 / 2100 300 / 300 Weight last 48 hrs Weight 241 lb 1.6 oz Weight 246 lb 6.4 oz Weight 245 lb Physical Exam 2 Narrative: GENERAL: The patient is alert and oriented times three. Not in any acute distress. HEENT: No significant pallor, icterus or lymphadenopathy.Oral cavity: There are no mucous membrane lesions. NECK: Trachea appears to be central. No masses noted. No JVD or thyromegaly appreciated. RESPIRATORY: Chest is symmetrical. No intercostals muscle retraction or any accessory muscle activation. There is no chest wall tenderness. Breath sounds are heard bilaterally. No rales or rhonchi heard. No evidence of any consolidation. BREASTS: Deferred. HEART: The heart sounds are normal. No S3 or S4. No significant murmurs. No pericardial rub ABDOMEN: No vessel pulsations or distention. No tenderness. No organomegaly appreciated. Bowel sounds are normally heard. : Deferred. RECTAL: Deferred. LYMPHATIC: No lymphadenopathy noted in the neck. EXTREMITIES: 2+ edema both lower extremities. MUSCULOSKELETAL: Minimal swelling and tenderness at both knee joints. SKIN: There are no significant rashes or ecchymosis NEUROPSYCHIATRIC: The patient is alert and oriented x3. Appears to be in a good mood. No tremors or rigidity noted. Data 12/29/23 03:11 12/29/23 03:11 Other Labs: Laboratory Last Values WBC 14.83 10^3/uL (3.29-11.43) H 12/28/23 05:49 RBC 2.00 10^6/uL (3.85-5.65) L 12/28/23 05:49 Hgb 6.60 g/dL (11.27-16.99) L 12/28/23 05:49 Hct 20.5 % (37-53) L* 12/28/23 05:49 MCV 102.5 fl (82-101) H 12/28/23 05:49 MCH 33.0 pg (27-33) 12/28/23 05:49 MCHC 32.2 g/dL (30-55) 12/28/23 05:49 RDW 16.8 % (12.1-15.1) H 12/28/23 05:49 Plt Count 404 10^3/cmm (157-399) H 12/28/23 05:49 MPV 11.2 fL (7.4-10.4) H 12/28/23 05:49 Neut % (Auto) 66.5 % 12/28/23 05:49 Lymph % (Auto) 15.2 % 12/28/23 05:49 [place] % (Auto) 16.8 % 12/28/23 05:49 Eos % (Auto) 0.5 % 12/28/23 05:49 Baso % (Auto) 0.5 % 12/28/23 05:49 Neut # (Auto) 9.84 10^3/uL (1.8-7.7) H 12/28/23 05:49 Lymph # (Auto) 2.3 10^3/uL (0.8-4.8) 12/28/23 05:49 [place] # (Auto) 2.5 10^3/uL (0.2-0.9) H 12/28/23 05:49 Eos # (Auto) 0.1 10^3/uL (0.0-0.8) 12/28/23 05:49 Baso # (Auto) 0.1 10^3/uL (0.0-0.1) 12/28/23 05:49 Nucleated RBC % (auto) 0.3 % 12/28/23 05:49 Nucleated RBCs # 0.0 /100WBC 12/28/23 05:49 ESR 49 mm/hr (0-10) H 12/27/23 11:55 PT 19.10 SECONDS (12.1-14.9) H 12/27/23 11:55 INR 1.55 (0.8-1.2) H 12/27/23 11:55 Sodium 133 mmol/L (136-145) L 12/28/23 05:49 Potassium 4.7 mmol/L (3.5-5.1) 12/28/23 05:49 Chloride 101 mmol/L (98-107) 12/28/23 05:49 Carbon Dioxide 21 mmol/L (22-29) L 12/28/23 05:49 Anion Gap 15.7 (5-19) 12/28/23 05:49 BUN 31 mg/dL (6-20) H 12/28/23 05:49 Creatinine 1.6 mg/dL (0.7-1.2) H 12/28/23 05:49 GFR Calculation 44.9 mL/min (90-130) L 12/28/23 05:49 Glucose 122 mg/dL (65-115) H 12/28/23 05:49 Calculated Osmolality 284 mOsm/kg (285-295) L 12/28/23 05:49 Lactic Acid 1.1 mmol/L (0.5-2.2) 12/27/23 11:55 Calcium 8.8 mg/dL (8.5-10.5) 12/28/23 05:49 Phosphorus 3.2 mg/dL (2.5-4.5) 12/28/23 05:49 Magnesium 1.7 mg/dL (1.7-2.3) 12/28/23 05:49 Total Bilirubin 1.5 mg/dL (0.15-1.2) H 12/28/23 05:49 AST 17 U/L (0-40) 12/28/23 05:49 ALT 32 U/L (0-41) 12/28/23 05:49 Alkaline Phosphatase 100 U/L (40-130) 12/28/23 05:49 C-Reactive Protein 210.2 mg/L (0.0-4.9) H 12/28/23 05:49 NT-Pro-B Natriuret Pep 890 pg/mL (0-125) H 12/27/23 11:55 Total Protein 7.3 g/dL (6.6-8.7) 12/28/23 05:49 Albumin 3.6 g/dL (3.5-5.2) 12/28/23 05:49 Globulin 3.7 g/dL (1.3-4.6) 12/28/23 05:49 Procalcitonin 0.93 ng/mL (0-0.5) H 12/28/23 05:49 Urine Color Yellow (Yellow) 12/27/23 18:47 Urine Appearance Clear (CLEAR) 12/27/23 18:47 Urine pH 5 (5-7) 12/27/23 18:47 Ur Specific [place] 1.015 (1.005-1.030) 12/27/23 18:47 Urine Protein 1+ (Negative) H 12/27/23 18:47 Urine Glucose (UA) Norm (Normal) 12/27/23 18:47 Urine Ketones 1+ (Negative) H 12/27/23 18:47 Urine Blood Neg (Negative) 12/27/23 18:47 Urine Nitrate Negative (Negative) 12/27/23 18:47 Urine Bilirubin 1+ (Negative) H 12/27/23 18:47 Urine Urobilinogen 4 mg/dL (Negative) H 12/27/23 18:47 Ur Leukocyte Esterase Trace (Negative) H 12/27/23 18:47 Urine RBC 0-4 /hpf (0-2) H 12/27/23 18:47 Urine WBC 0-4 /hpf (0-5) H 12/27/23 18:47 Ur Squamous Epith Cells 0-4 /hpf (0-5) H 12/27/23 18:47 Amorphous Sediment 1+ /hpf 12/27/23 18:47 Urine Bacteria 2+ /hpf (NONE) H 12/27/23 18:47 Urine Mucus Trace /hpf 12/27/23 18:47 Urine Sperm 1+ /hpf 12/27/23 18:47 Fluid Crystals See path consult 12/27/23 13:42 Synovial Color Red (PALE YELLOW) 12/27/23 13:42 Synovial Appearance Cloudy (CLEAR) 12/27/23 13:42 Synovial WBC 9394 /uL (0-150) H 12/27/23 13:42 Synovial RBC 45 10^3/uL (0-0) H 12/27/23 13:42 Synovial Mononuclear 1.016 10^3/uL 12/27/23 13:42 Synov Polynuclear WBCs 8.378 10^3/uL 12/27/23 13:42 Synovial Other Cells Not Reportable 12/27/23 13:42 Synovial Polynuclear % 89.100 % 12/27/23 13:42 Synovial Mononuclear % 10.900 % 12/27/23 13:42 Path Cons w/Slide Yes 12/27/23 13:42 Crossmatch See Detail 12/28/23 07:25 Micro: Microbiology 12/27/23 13:42 Gram Stain - Final Synovial Fluid 12/27/23 12:10 Blood Culture - Preliminary Blood SPECIMEN COLLECTED 12/27/23 12:19 Blood Culture - Preliminary Blood SPECIMEN COLLECTED Other data: EKG on 12/27/2023 Sinus tachycardia with a rate of [address]-T changes. Echocardiogram on 12/19/2023 Diffuse hypokinesia of the left ventricle with ejection fraction of 40%. Mild diffuse hypokinesia. Patient was found to be in atrial flutter with rapid ventricular rate, during the study. Mildly increased left atrial size. Thickened mitral valve. Mild mitral valve regurgitation. Thickened aortic valve. Trace to mild tricuspid valve regurgitation. There is no pericardial effusion. There are no intracardiac masses. Technically somewhat difficult study Myocardial perfusion imaging on 03/07/2023 1. Small to medium sized area of prior infarct with kwesi-infarct ischemia seen in the RCA territory 2. LV systolic function is normal A&P Assessment and plan (1) Atrial fibrillation: The patient is currently remaining in sinus rhythm. Discussed about the option of putting him on some oral antiarrhythmic drugs. Since the patient strongly believes that the arrhythmia was related to niacin, I may hold off on this for the time being. It may be appropriate to start him on the metoprolol. If he develops any recurrence of the fibrillation, may need to consider antiarrhythmic drug. Qualifiers: Atrial fibrillation type: unspecified chronic Qualified Code(s): I48.20 - Chronic atrial fibrillation, unspecified (2) On continuous oral anticoagulation: Because of the anemia and the Significant drop in the hemoglobin, it would be appropriate to hold off on the Xarelto at this time. If he develops recurrence of the fibrillation, we may need to consider Watchman procedure. (3) Acute kidney injury: May have to closely monitor the kidney function. Careful IV hydration (4) Recurrent cerebrovascular accidents (CVAs): This patient has not had any recent recurrence. May hold off any further intervention at this point (5) Pyruvate kinase (PK) deficiency anemia: Patient may benefit from couple of units of blood transfusion to keep the hemoglobin around 9. Plan Based on the clinical progress, further recommendations will be made. Thank you for the opportunity to evaluate this patient and make these recommendations Coding Level of Care Code 39562 Diagnoses Chronic atrial fibrillation I48.20 Atrial fibrillation type: unspecified chronic On continuous oral anticoagulation Z79.01 Acute kidney injury N17.9 Recurrent cerebrovascular accidents (CVAs) I63.9 Pyruvate kinase (PK) deficiency anemia D55.21
--- NOTE | 2023-12-28 09:56 | PM.PN ---
Subjective Subjective: Patient reports ongoing bilateral leg swelling and edema. His left leg remains much worse than his right. He is willing to work with therapy but does not feel like he can ambulate due to the severe pain and stiffness in his left leg. Heart rate remains controlled off of Cardizem and on metoprolol. He is found to be more anemic this morning. He follows with hematology. He is consents to transfusion. Denies fevers or chills overnight. Medications: Reviewed: Yes Vitals/I&O/Wt Last Vital Signs Temp 98.6 F 12/28/23 07:59 Pulse 96 12/28/23 07:59 Resp 16 12/28/23 07:59 BP 141/74 12/28/23 07:59 Pulse Ox 90 12/28/23 07:59 O2 Del Method Room Air 12/28/23 07:59 FiO2 21 12/27/23 21:15 12/27/23 12/28/23 12/28/23 22:59 06:59 14:59 Intake Total 2550 / 2600 300 / 300 Output Total 500 / 500 Balance 2050 / 2100 300 / 300 Weight last 48 hrs Weight 109.361 kg Weight 111.765 kg Weight 111.13 kg Physical Exam Narrative: General: Patient is awake and alert. Sitting on edge of bed. Very pleasant. Head: Normocephalic. Atraumatic. EOM intact. Neck: No JVD. Cardiovascular: No gallops. No murmurs. Non-pitting edema in bilateral lower extremities. Normal rate. Lungs: Clear to auscultation, no use of accessory muscles, no crackles or wheezes. Skin: No jaundice. No rashes. Abdomen: Normal bowel sounds, abdomen soft and nontender. Genito Urinary: Genital exam not performed since complaints not related. Rectal: Rectal exam not performed since no symptoms indicated blood loss. Extremities: No cyanosis or clubbing. Musculoskeletal: Left lower extremity is swollen with non-pitting edema. Not overly sensitive to touch but deep palpation continues to be uncomfortable. Neurological: Moves all 4 extremities. No myoclonus. Data 12/28/23 05:49 12/28/23 05:49 Micro: Microbiology 12/27/23 13:42 Gram Stain - Final Synovial Fluid 12/27/23 12:10 Blood Culture - Preliminary Blood SPECIMEN COLLECTED 12/27/23 12:19 Blood Culture - Preliminary Blood SPECIMEN COLLECTED A&P Assessment and plan (1) Leg pain, left: Left leg with nonpitting edema and severe pain with decreased mobility Could possibly be a side effect of his calcium channel angeilta, will hold for now No obvious cellulitis on exam Synovial fluid showed 9394 WBCs, no consisent with septic arthritis, more suggestive of inflammatory process; patient reports chronic knee swelling after his post-op knee infections. Serial exams Supportive care Analgesics as needed Start IV diuresis (2) Atrial flutter: Hold calcium channel angelita due to concern for possible side effect Recent echo reviewed, notable for ejection fraction of 40% Continue home Xarelto, hold dose for today given worsening anemia Continue metoprolol tartrate 50 mg twice daily Will ask cardiology to evaluate given he follows with this group Continuous telemetry monitoring (3) Macrocytic anemia: Hemoglobin less than 7, proceed with transfusion His acute drop may be related to the IV fluids he received yesterday He reports dark urine days prior to admission, will check for hemolysis Will do Lasix before and after transfusion to help with the edema He follows with hematology, he plans to contact Dr. Souza's office early next week given worsening overall anemia (4) Febrile: Patient met SIRS criteria with tachycardia, leukocytosis, febrile on admission Fever and tachycardia resolved with treatment, continue to monitor for recurrence Source unclear, query possible tick related illness Continue broad-spectrum antibiotics Obtain procalcitonin Repeat CRP Tick panel pending Monitor fever curve (5) Leukocytosis: Chronic leukocytosis confounds clinical picture Suspect his chronic white count is from his history of splenectomy Antibiotics as above (6) Acute kidney injury: Associated with mild hyperkalemia and metabolic acidosis Hyperkalemia has resolved Metabolic acidosis is shown some improvement Creatinine is unchanged Plan DVT prophylaxis: Xarelto CODE STATUS: Full code Attestations Medical Necessity Statement*: Patient requires ongoing hospitalization for blood transfusion, IV diuresis, cardiology evaluation, IV antibiotics, surveillance of cultures, serial exams, and supportive care. Coding Level of Care Code Acute Code for [facility] Diagnoses Leg pain, left M79.605 Atrial flutter I48.92 Macrocytic anemia D53.9 Febrile R50.9 Leukocytosis D72.829 Acute kidney injury N17.9
[2023-12-28] MEDS: GALANTAMINE 12 MG 12 EACH PO ×2 (10:25→17:29)
[2023-12-28 10:57] LABS: Creatine Phosphokinase 57 U/L (39-308); Lactate Dehydrogenase 151 U/L (135-225)
[2023-12-28] MEDS: morphine 4 mg/mL SDV 1 mL IVP ×2 (12:22→16:17)
[2023-12-29] VITALS (24 sets, daily range): BP systolic 122–179; BP diastolic 56–84; PULSE 70–93; RESP 15–22; TEMP 36.2–37.3; O2SAT 90–96
[2023-12-29] MEDS: morphine 4 mg/mL SDV 1 mL IVP ×5 (02:01→21:05)
[2023-12-29 03:21] LABS: Basophils # 0.1 10^3/uL (0.0-0.1); Basophils % 0.6 %; Eosinophils # 0.2 10^3/uL (0.0-0.8); Eosinophils % 1.1 %; Hematocrit 20.9 % (37-53); Lymphocytes # 1.5 10^3/uL (0.8-4.8); Lymphocytes % 11.4 %; Mean Corpuscular HGB Conc 32.1 g/dL (30-55); Mean Corpuscular Hemoglobin 31.3 pg (27-33); Mean Corpuscular Volume 97.7 fl (82-101); Mean Platelet Volume 10.9 fL (7.4-10.4); Monocytes # 2.9 10^3/uL (0.2-0.9); Monocytes % 21.3 %; Neutrophils # 8.78 10^3/uL (1.8-7.7); Nucleated Red Blood Cells % 0.3 %; Platelet Count 433 10^3/cmm (157-399); Red Blood Count 2.14 10^6/uL (3.85-5.65)
[2023-12-29 03:41] LABS: Alanine Aminotransferase 25 U/L (0-41); Albumin Level 3.3 g/dL (3.5-5.2); Alkaline Phosphatase 100 U/L (40-130); Anion Gap 16.5 (5-19); Aspartate Amino Transferase 13 U/L (0-40); Blood Urea Nitrogen 41 mg/dL (6-20); C Reactive Protein 177.8 mg/L (0.0-4.9); Calcium 8.6 mg/dL (8.5-10.5); Carbon Dioxide 20 mmol/L (22-29); Chloride 102 mmol/L (98-107); Creatinine Clr Calc Pharmacy 64.8407; Globulin 2.9 g/dL (1.3-4.6); Glomerular Filtration Rate 44.9 mL/min (90-130); Glucose 175 mg/dL (65-115); Magnesium 1.8 mg/dL (1.7-2.3); Osmolality Calculated 292 mOsm/kg (285-295); Phosphorus 4.5 mg/dL (2.5-4.5); Potassium 4.5 mmol/L (3.5-5.1); Sodium 134 mmol/L (136-145); Total Bilirubin 1.1 mg/dL (0.15-1.2); Total Protein 6.2 g/dL (6.6-8.7)
[2023-12-29 03:43] LABS: Vancomycin Trough 25.6 ug/mL (10-15)
[2023-12-29 03:46] LABS: Procalcitonin 0.95 ng/mL (0-0.5)
[2023-12-29] MEDS: vancomycin 1,000 MG in sodium chloride 0.9% 250 ML 250 MG IV (04:49)
[2023-12-29] MEDS: TRAMadol 50 mg Tablet PO ×2 (07:05→19:50)
[2023-12-29] MEDS: acetaminophen 325 mg Tablet 650 MG PO ×2 (07:05→19:50)
--- NOTE | 2023-12-29 08:26 | P.PN_ITS ---
Subjective 2 Subjective: Patient still has bilateral knee discomfort. No chest pain. Vitals/I&O/Wt Last Vital Signs Temp 97.8 F 12/29/23 08:00 Pulse 81 12/29/23 08:00 Resp 18 12/29/23 08:00 BP 158/71 12/29/23 08:00 Pulse Ox 91 12/29/23 08:00 O2 Del Method Room Air 12/29/23 04:00 FiO2 21 12/28/23 21:20 12/28/23 12/29/23 12/29/23 22:59 06:59 14:59 Intake Total 660 / 1680 490 / 2170 Output Total 450 / 2150 Balance 660 / -20 40 / 20 Weight last 48 hrs Weight 246 lb 1 oz Weight 245 lb 1 oz Weight 241 lb 1.6 oz Weight 246 lb 6.4 oz Weight 245 lb Physical Exam 2 Narrative: GENERAL: Patient is alert, awake and oriented x3. [] NECK: No jugular vein distension. [] HEENT: No cyanosis. No icterus. No pallor. [] HEART: Regular S1 and S2. No murmur, rub or gallop. [] LUNGS: Clear to auscultate bilaterally. [] CENTRAL NERVOUS SYSTEM: Grossly nonfocal. [] EXTREMITIES: Lower extremities with 1-2+ edema bilaterally. Data 12/30/23 05:50 12/30/23 05:50 Micro: Microbiology 12/27/23 12:10 Blood Culture - Preliminary Blood NEGATIVE TO DATE 12/27/23 12:19 Blood Culture - Preliminary Blood NEGATIVE TO DATE 12/27/23 13:42 Gram Stain - Final Synovial Fluid Body Fluid Culture - Preliminary A&P Assessment and plan (1) Atrial fibrillation: Continue metoprolol. Patient is staying in normal sinus rhythm. As patient had recent cardioversion will recommend continuing with anticoagulation. Qualifiers: Atrial fibrillation type: unspecified chronic Qualified Code(s): I48.20 - Chronic atrial fibrillation, unspecified (2) On continuous oral anticoagulation: Blood transfusion to be given today. Close H and H. (3) Acute kidney injury: Patient needs diuresis. Close I and Os. Monitor renal function (4) Recurrent cerebrovascular accidents (CVAs): This patient has not had any recent recurrence. May hold off any further intervention at this point (5) Pyruvate kinase (PK) deficiency anemia: Blood transfusion with goal of maintaining Hgb over 8 Plan Thank you for involving us with care of this patient. We will continue to follow. Please call with questions. Attestations 2 Medical Necessity Statement*: Care expected to cross 2 midnights. Coding Level of Care Code Acute Code for Chg Fwd Diagnoses Chronic atrial fibrillation I48.20 Atrial fibrillation type: unspecified chronic On continuous oral anticoagulation Z79.01 Acute kidney injury N17.9 Recurrent cerebrovascular accidents (CVAs) I63.9 Pyruvate kinase (PK) deficiency anemia D55.21
[2023-12-29] MEDS: doxycycline 100 mg Tablet PO ×2 (10:03→17:38)
[2023-12-29] MEDS: allopurinol 300 mg Tablet PO (10:03)
[2023-12-29] MEDS: metoprolol tartrate 50 mg Tablet PO ×2 (10:03→21:05)
[2023-12-29] MEDS: GALANTAMINE 12 MG 12 EACH PO ×2 (10:04→17:40)
[2023-12-29] MEDS: cefTRIAXone 1,000 MG in sodium chloride 0.9% (plus) 50 ML 100 MG IV (10:16)
--- NOTE | 2023-12-29 11:10 | P.PN_ITS ---
Subjective 2 Subjective: Patient reports the swelling in his bilateral lower extremities is slightly better today. He is still having significant pain in both extremities. His right knee is bothering him the worst this morning. Reports he never had trouble with his right leg before. He still having severe trouble ambulating. He was treated with blood transfusion yesterday. Unfortunately he did not respond to treatment as intended. His hemoglobin is now 6.7 again. He denies any further fevers or chills. Medications: Reviewed: Yes Vitals/I&O/Wt Last Vital Signs Temp 97.2 F L 12/29/23 11:02 Pulse 75 12/29/23 11:02 Resp 18 12/29/23 11:02 BP 142/76 12/29/23 11:02 Pulse Ox 92 12/29/23 11:02 O2 Del Method Room Air 12/29/23 04:00 FiO2 21 12/28/23 21:20 12/28/23 12/29/23 12/29/23 22:59 06:59 14:59 Intake Total 660 / 1680 490 / 2170 240 / 240 Output Total 450 / 2150 Balance 660 / -20 40 / 20 240 / 240 Weight last 48 hrs Weight 111.612 kg Weight 111.158 kg Weight 109.361 kg Weight 111.765 kg Weight 111.13 kg Physical Exam 2 Narrative: General: Patient is awake and alert. Very pleasant. Head: Normocephalic. Atraumatic. EOM intact. Neck: No JVD. Cardiovascular: No gallops. No murmurs. Persistent non-pitting edema in bilateral lower extremities. Lungs: Clear to auscultation, no use of accessory muscles, no crackles or wheezes. Skin: No jaundice. No rashes. Abdomen: Normal bowel sounds, abdomen soft and nontender. Genito Urinary: Genital exam not performed since complaints not related. Rectal: Rectal exam not performed since no symptoms indicated blood loss. Extremities: No cyanosis or clubbing. Musculoskeletal: Left greater than right lower extremity is swollen with non- pitting edema. Not overly sensitive to touch but deep palpation continues to be uncomfortable in both extremities. Neurological: Moves all 4 extremities. No myoclonus. Data 12/29/23 03:11 12/29/23 03:11 Micro: Microbiology 12/27/23 13:42 Gram Stain - Final Synovial Fluid Body Fluid Culture - Preliminary 12/27/23 12:10 Blood Culture - Preliminary Blood NEGATIVE TO DATE 12/27/23 12:19 Blood Culture - Preliminary Blood NEGATIVE TO DATE A&P Assessment and plan (1) Leg pain, left: Left greater than right leg with nonpitting edema and severe pain with decreased mobility Could possibly be a side effect of his calcium channel angelita, as such Cardizem has been discontinued Synovial fluid showed 9394 WBCs, not consistent with septic arthritis, more suggestive of inflammatory process; patient reports chronic knee swelling after his post-op knee infections Serial exams Supportive care Analgesics as needed Unfortunately not responding to treatment as intended, will increase IV Lasix to twice daily AC dosing Encourage leg elevation as tolerated Encourage therapy as tolerated (2) Atrial flutter: Hold calcium channel angelita due to concern for possible side effect Xarelto discontinued after discussion with cardiology, he has recurrent atrial flutter/fib and a Watchman procedure may be in his best interest given 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 Souza for many years, consider hematology consultation when available versus outpatient follow-up Xarelto has been discontinued, discontinue aspirin as well (4) Febrile: Patient met SIRS criteria with tachycardia, leukocytosis, febrile on admission Fever and tachycardia resolved with treatment, continue to monitor for recurrence Source unclear, query possible tick related illness, tick panel still pending Continue broad-spectrum antibiotics Persistently elevated inflammatory markers Creatinine remains elevated with increasing BUN, will discontinue vancomycin there is been no evidence of MRSA on the cultures Continue with ceftriaxone/doxycycline for now (5) Leukocytosis: Chronic leukocytosis confounds clinical picture 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 Coding Level of Care Code Acute Code for Chg Fwd Diagnoses Leg pain, left M79.605 Atrial flutter I48.92 Macrocytic anemia D53.9 Febrile R50.9 Leukocytosis D72.829 Acute kidney injury N17.9
[2023-12-29] MEDS: FUROsemide 10 mg/mL SDV 4mL 40 MG IVP ×2 (11:15→17:38)
[2023-12-29] MEDS: sodium chloride 0.9% (100 ml) 100 ML 75 ML (16:38)
[2023-12-29 20:10] LABS: Hematocrit 27.6 % (37-53)
[2023-12-30] VITALS (10 sets, daily range): BP systolic 155–183; BP diastolic 71–84; PULSE 72–86; RESP 16–18; TEMP 36.9–37.1; O2SAT 91–96
[2023-12-30] MEDS: morphine 4 mg/mL SDV 1 mL IVP ×2 (02:41→09:00)
[2023-12-30 05:59] LABS: Basophils # 0.1 10^3/uL (0.0-0.1); Basophils % 0.5 %; Eosinophils # 0.2 10^3/uL (0.0-0.8); Eosinophils % 1.4 %; Hematocrit 25.2 % (37-53); Lymphocytes # 2.5 10^3/uL (0.8-4.8); Lymphocytes % 16.8 %; Mean Corpuscular HGB Conc 32.1 g/dL (30-55); Mean Corpuscular Hemoglobin 29.1 pg (27-33); Mean Corpuscular Volume 90.6 fl (82-101); Mean Platelet Volume 10.4 fL (7.4-10.4); Monocytes # 2.8 10^3/uL (0.2-0.9); Monocytes % 18.7 %; Neutrophils # 9.09 10^3/uL (1.8-7.7); Neutrophils % 61.9 %; Nucleated Red Blood Cells % 0.3 %; Platelet Count 492 10^3/cmm (157-399); Red Blood Count 2.78 10^6/uL (3.85-5.65); Red Cell Distribution Width 21.7 % (12.1-15.1); White Blood Count 14.72 10^3/uL (3.29-11.43)
[2023-12-30 06:17] LABS: Albumin Level 3.4 g/dL (3.5-5.2); Anion Gap 16.1 (5-19); Blood Urea Nitrogen 37 mg/dL (6-20); Calcium 9.2 mg/dL (8.5-10.5); Carbon Dioxide 22 mmol/L (22-29); Chloride 102 mmol/L (98-107); Creatinine Clr Calc Pharmacy 86.1611; Glomerular Filtration Rate 62.6 mL/min (90-130); Glucose 110 mg/dL (65-115); Magnesium 1.6 mg/dL (1.7-2.3); Phosphorus 3.6 mg/dL (2.5-4.5); Potassium 4.1 mmol/L (3.5-5.1); Sodium 136 mmol/L (136-145)
[2023-12-30] MEDS: FUROsemide 10 mg/mL SDV 4mL 40 MG IVP ×2 (07:17→17:26)
--- NOTE | 2023-12-30 08:44 | PM.PN ---
Subjective Subjective: Patient feeling better. Diuresing well. Vitals/I&O/Wt Last Vital Signs Temp 98.6 F 12/30/23 07:35 Pulse 86 12/30/23 07:35 Resp 17 12/30/23 07:35 BP 183/84 12/30/23 07:35 Pulse Ox 96 12/30/23 07:35 O2 Del Method CPAP 12/30/23 07:35 FiO2 21 12/28/23 21:20 12/29/23 12/30/23 12/30/23 22:59 06:59 14:59 Intake Total 870 / 1350 120 / 1470 Output Total 3300 / 3300 800 / 800 Balance -2430 / -1950 120 / -1830 -800 / -800 Weight last 48 hrs Weight 239 lb 7 oz Weight 239 lb 7 oz Weight 246 lb 1 oz Weight 245 lb 1 oz Physical Exam Narrative: GENERAL: Patient is alert, awake and oriented x3. [] NECK: No jugular vein distension. [] HEENT: No cyanosis. No icterus. No pallor. [] HEART: Regular S1 and S2. No murmur, rub or gallop. [] LUNGS: Clear to auscultate bilaterally. [] CENTRAL NERVOUS SYSTEM: Grossly nonfocal. [] EXTREMITIES: Lower extremities with 1-2+ edema bilaterally. Data 12/31/23 04:52 12/31/23 04:52 Micro: Microbiology 12/27/23 13:42 Gram Stain - Final Synovial Fluid Body Fluid Culture - Preliminary A&P Assessment and plan (1) Atrial fibrillation: Qualifiers: Atrial fibrillation type: unspecified chronic Qualified Code(s): I48.20 - Chronic atrial fibrillation, unspecified (2) On continuous oral anticoagulation: (3) Acute kidney injury: (4) Recurrent cerebrovascular accidents (CVAs): (5) Pyruvate kinase (PK) deficiency anemia: Plan As patient is within 1 month of cardioversion, will recommend continuing with anticoagulation with Xarelto. Monitor H&H and transfusions as needed.Long-term patient will be a good candidate for Watchman device. He is feeling better with diuresis. Continue for today. Close I and Os and monitor renal function Hemoglobin is stable today since his transfusion yesterday. Thank you for involving us with care of this patient. We will continue to follow. Please call with questions. Attestations Medical Necessity Statement*: Care expected to cross 2 midnights. Coding Level of Care Code Acute Code for [facility] Fwd Diagnoses Chronic atrial fibrillation I48.20 Atrial fibrillation type: unspecified chronic On continuous oral anticoagulation Z79.01 Acute kidney injury N17.9 Recurrent cerebrovascular accidents (CVAs) I63.9 Pyruvate kinase (PK) deficiency anemia D55.21
[2023-12-30] MEDS: metoprolol tartrate 50 mg Tablet PO ×2 (09:04→20:32)
[2023-12-30] MEDS: GALANTAMINE 12 MG 12 EACH PO ×2 (09:04→17:26)
[2023-12-30] MEDS: doxycycline 100 mg Tablet PO ×2 (09:04→17:25)
[2023-12-30] MEDS: allopurinol 300 mg Tablet PO (09:04)
[2023-12-30] MEDS: cefTRIAXone 1,000 MG in sodium chloride 0.9% (plus) 50 ML 100 MG IV (09:05)
[2023-12-30] MEDS: hyDRALAzine 50 mg Tablet PO ×3 (09:05→20:32)
--- NOTE | 2023-12-30 09:27 | PC.CHAP ---
Pastoral Care Encounter/Spiritual Assessment Type of Contact [] Declined headliner installer visit [] Patient/Family/Request visit [] Outpatient visit [] Follow-up visit [] Physician referral [] Code/Alert [x] Routine visit [] Staff referral [] Actively dying [] Patient sleeping [] Family support [] [] Out of room [] Palliative care [] [] Receiving care in room [] Pre-surgical visit [] Trauma [] Long length of stay [] ICU visit [] Other: Relational/Emotional Strength [x] Patient feels connected with others/family/visitors/staff [] Distress [] Loneliness/isolation [] Abandonment Spirituality of Patient [x] Person of [place] [] Attends Scientologist of their [place] [x] Believes in Prayer [] Reads Bible or Amish materials [] There are Spiritual issues to be addressed Fur Nailer Interventions [x] Prayer [x] Active listening [] Non-anxious presence [x] Spiritual/emotional support [] Crisis/trauma care [] Spiritual counseling [] Bereavement support [] Provided bereavement packet [] Provided Bible/devotional materials [] Provided toy/stuffed animal, coloring book to patient or family member [] Provided Communion [] Anointing/[place] [] Salvation [x] Completed spiritual assessment [] Other: Impact on Illness or Injury [] Angry [] Fearful [] Anxious [] Often cries [] Exhaustion [] Unable to work [] Unable to attend mandaen [] Unable to walk/stand [] Unable to read [] Unable to drive [] Unable to eat/drink [] Unable to sleep [] Unable to be with family [] Patient intubated [] Other: Summary Time spent with patient 10 min
[2023-12-30] MEDS: methylPREDNISolone sod succ 125 mg/2 mL INJ 60 MG IVP ×2 (11:30→23:14)
[2023-12-30] MEDS: TRAMadol 50 mg Tablet PO ×2 (11:36→17:41)
[2023-12-30] MEDS: acetaminophen 325 mg Tablet 650 MG PO ×2 (11:36→17:41)
[2023-12-30 11:59] LABS: Uric Acid 8.3 mg/dL (3.4-7.0)
--- NOTE | 2023-12-30 12:04 | P.PN_ITS ---
Subjective 2 Subjective: Patient is complaining a lot of pain in his right knee There is no sign of septic joint I will go ahead start IV steroids, patient is agreeable with the plan If IV steroids help him we do have diagnosis of gout related arthropathy otherwise he will need MRI Hemoglobin 8.1 Dr. Mcdaniel wanted to continue anticoagulating agent at this point Vitals/I&O/Wt Last Vital Signs Temp 98.8 F 12/30/23 11:20 Pulse 85 12/30/23 11:20 Resp 17 12/30/23 11:20 BP 176/75 12/30/23 11:20 Pulse Ox 94 12/30/23 11:20 O2 Del Method Room Air 12/30/23 11:20 FiO2 21 12/28/23 21:20 12/29/23 12/30/23 12/30/23 22:59 06:59 14:59 Intake Total 870 / 1350 120 / 1470 170 / 170 Output Total 3300 / 3300 2500 / 2500 Balance -2430 / -1950 120 / -1830 -2330 / -2330 Weight last 48 hrs Weight 108.607 kg Weight 108.607 kg Weight 111.612 kg Weight 111.158 kg Physical Exam 2 Narrative: Awake and alert GCS 15 No new focal deficit Bilateral lower 70 swelling left greater than right No sign of septic joint Effusion around the knee joint noted Knee is not warm but tender on palpation Limited range of motion Awake and alert Signs of heart failure Currently on room air Hemodynamic stable Hypertensive Abdomen distended nontender Data 12/30/23 05:50 12/30/23 05:50 Micro: Microbiology 12/27/23 13:42 Gram Stain - Final Synovial Fluid Body Fluid Culture - Final A&P Assessment and plan (1) Attention deficit disorder: (2) Atrial fibrillation: Qualifiers: Atrial fibrillation type: unspecified chronic Qualified Code(s): I48.20 - Chronic atrial fibrillation, unspecified (3) On continuous oral anticoagulation: (4) Acute kidney injury: (5) Pyruvate kinase (PK) deficiency anemia: (6) Macrocytic anemia: (7) Leukocytosis: (8) Febrile: (9) Tick bite: Plan RAFAEL: Resolved Sepsis: Ruled out Septic joint ruled out Polyarthropathy atypical gout Start IV steroids Check uric acid If steroids do not help alleviate his symptoms may request MRI of knees I will give him 1 dose of ketorolac 50 mg A-fib currently in sinus rhythm cardioversion in the past Cardiology is recommending continuation of anticoagulating agent which I would resume at this point pyruvate Kinase deficiency with underlying anemia Macrocytic After GI bleed Status post blood transfusion Keep hemoglobin above 8 Tach related fever: No recurrence Vancomycin has been discontinued I would continue ceftriaxone and doxycycline for now Acute CHF exacerbation Continue diuresis Monitor for exacerbation of gout Continue allopurinol Chronic leukocytosis and anemia Follows up with Dr. Souza outpatient Hypertension: Continue antihypertensive regimen Full code Cardiac diet Continue with PT once pain is under control Deep apnea, uses CPAP Attestations 2 Medical Necessity Statement*: Continue medical management Diagnoses Attention deficit disorder F98.8 Chronic atrial fibrillation I48.20 Atrial fibrillation type: unspecified chronic On continuous oral anticoagulation Z79.01 Acute kidney injury N17.9 Pyruvate kinase (PK) deficiency anemia D55.21 Macrocytic anemia D53.9 Leukocytosis D72.829 Febrile R50.9 Tick bite W57.XXXA
[2023-12-30] MEDS: ketorolac 30 mg/mL INJ 15 MG IVP (13:16)
[2023-12-31 00:38] VITALS: BP 167/68; PULSE 75; RESP 18; TEMP 37; O2SAT 93
[2023-12-31 05:00] VITALS: BP 152/72; PULSE 70; RESP 16; TEMP 37; O2SAT 94
[2023-12-31 05:05] LABS: Basophils % 0.1 %; Hematocrit 26.9 % (37-53); Lymphocytes # 0.7 10^3/uL (0.8-4.8); Lymphocytes % 5.4 %; Mean Corpuscular HGB Conc 32.3 g/dL (30-55); Mean Corpuscular Hemoglobin 28.5 pg (27-33); Mean Corpuscular Volume 88.2 fl (82-101); Mean Platelet Volume 10.8 fL (7.4-10.4); Monocytes # 0.3 10^3/uL (0.2-0.9); Monocytes % 2.6 %; Neutrophils # 11.79 10^3/uL (1.8-7.7); Neutrophils % 91.4 %; Nucleated Red Blood Cells % 0 %; Platelet Count 600 10^3/cmm (157-399); Red Blood Count 3.05 10^6/uL (3.85-5.65); Red Cell Distribution Width 20.3 % (12.1-15.1)
[2023-12-31 05:26] LABS: Anion Gap 17.6 (5-19); Blood Urea Nitrogen 60 mg/dL (6-20); Calcium 9.6 mg/dL (8.5-10.5); Carbon Dioxide 20 mmol/L (22-29); Chloride 99 mmol/L (98-107); Glomerular Filtration Rate 52.4 mL/min (90-130); Glucose 340 mg/dL (65-115); Osmolality Calculated 304 mOsm/kg (285-295); Potassium 4.6 mmol/L (3.5-5.1); Sodium 132 mmol/L (136-145)
[2023-12-31 05:34] LABS: Creatinine Clr Calc Pharmacy 72.9263
[2023-12-31 06:00] VITALS: PULSE 81
[2023-12-31] MEDS: FUROsemide 10 mg/mL SDV 4mL 40 MG IVP (06:38)
--- NOTE | 2023-12-31 07:03 | PM.PN ---
Subjective Subjective: Patient is doing well. no chest pain. Vitals/I&O/Wt Last Vital Signs Temp 98.6 F 12/31/23 05:00 Pulse 81 12/31/23 06:00 Resp 16 12/31/23 05:00 BP 152/72 12/31/23 05:00 Pulse Ox 94 12/31/23 05:00 O2 Del Method Room Air 12/30/23 19:56 FiO2 21 12/28/23 21:20 12/30/23 12/31/23 12/31/23 22:59 06:59 14:59 Intake Total 720 / 1130 500 / 1630 Balance 720 / -1920 500 / -1420 Weight last 48 hrs Weight 233 lb 5 oz Weight 239 lb 7 oz Weight 239 lb 7 oz Physical Exam Narrative: GENERAL: Patient is alert, awake and oriented x3. [] NECK: No jugular vein distension. [] HEENT: No cyanosis. No icterus. No pallor. [] HEART: Regular S1 and S2. No murmur, rub or gallop. [] LUNGS: Clear to auscultate bilaterally. [] CENTRAL NERVOUS SYSTEM: Grossly nonfocal. [] EXTREMITIES: Lower extremities with 1-2+ edema bilaterally. Data 12/31/23 04:52 12/31/23 04:52 Micro: Microbiology 12/27/23 13:42 Gram Stain - Final Synovial Fluid Body Fluid Culture - Final A&P Assessment and plan (1) Atrial fibrillation: Qualifiers: Atrial fibrillation type: unspecified chronic Qualified Code(s): I48.20 - Chronic atrial fibrillation, unspecified (2) On continuous oral anticoagulation: (3) Acute kidney injury: (4) Recurrent cerebrovascular accidents (CVAs): (5) Pyruvate kinase (PK) deficiency anemia: Plan Patient is overall stable. Continue anticoagulation. Long-term patient will be sent for Watchman device placement given recurrent anemia. Thank you for involving us with care of this patient. Patient is stable to be discharged from cardiology standpoint. Please call with questions. Attestations Medical Necessity Statement*: Care expected to cross 2 midnights. Coding Level of Care Code Acute Code for [facility] Fwd Diagnoses Chronic atrial fibrillation I48.20 Atrial fibrillation type: unspecified chronic On continuous oral anticoagulation Z79.01 Acute kidney injury N17.9 Recurrent cerebrovascular accidents (CVAs) I63.9 Pyruvate kinase (PK) deficiency anemia D55.21
[2023-12-31 07:38] VITALS: BP 116/62; PULSE 81; RESP 17; TEMP 36.6; O2SAT 93
[2023-12-31] MEDS: cefTRIAXone 1,000 MG in sodium chloride 0.9% (plus) 50 ML 100 MG IV (08:27)
[2023-12-31] MEDS: doxycycline 100 mg Tablet PO (08:28)
[2023-12-31] MEDS: rivaroxaban 10 mg Tablet 20 MG PO (08:28)
[2023-12-31] MEDS: metoprolol tartrate 50 mg Tablet PO (08:29)
[2023-12-31] MEDS: allopurinol 300 mg Tablet PO (08:29)
[2023-12-31] MEDS: hyDRALAzine 50 mg Tablet PO (08:29)
[2023-12-31] MEDS: GALANTAMINE 12 MG 12 EACH PO (09:25)
--- NOTE | 2023-12-31 10:41 | P.DS_ITS ---
Discharge Providers Date of Admission: 12/29/23 11:06 Date of Discharge: December 31, 2023 Attending Provider at Admission: Umair Lorenz MD Attending Provider at Discharge: Philomena Carrero MD Primary Care Provider: Yu Lee APN Diagnoses at Discharge Discharge Diagnosis (1) Atrial fibrillation: Status: Acute Qualifiers: Atrial fibrillation type: unspecified chronic Qualified Code(s): I48.20 - Chronic atrial fibrillation, unspecified (2) On continuous oral anticoagulation: Status: Acute (3) Acute kidney injury: Status: Acute (4) Recurrent cerebrovascular accidents (CVAs): Status: Acute (5) Pyruvate kinase (PK) deficiency anemia: Status: Acute Reason for Visit Reason for Visit: possible allergic reaction Hospital Course Hospital Course 58-year-old male who was admitted for management evaluation of bilateral lower extremity swelling and joint pains, patient is stating that his symptoms started after he took first dose of Cardizem, he carries history of pyruvate Kinase deficiency, macrocytic anemia, A-fib, takes rivaroxaban, required blood transfusion during hospitalization without any active GI bleed, remained hemodynamically stable, patient was not able to put weight because of painful knee joints, left knee joint was tapped which was not infectious, there was no septic joint abnormality or findings, no signs of DVT, patient was put on high- dose steroids for gout arthropathy however it is atypical to involve multiple joints but his symptoms resolved significantly with use of high-dose steroids, patient does take gout medication daily basis, uric acid is 8.3, I have asked him to take prednisone tapering regimen for next few days. Patient is agreement, Cardizem has been discontinued, will switch him to metoprolol. Cardiology recommended continuation of rivaroxaban and in case he gets recurrent anemic episodes in future requiring blood transfusion although it is enzyme deficiency related he may be considered a good candidate for Watchman device. Patient is stating that Dr. Souza also checked on him on night before his discharge and recommended him to follow-up with them closely. Physical Exam Narrative: Pleasant and cooperative No sign of septic joint GCS 15 Nonfocal neuroexam Awake and alert A-fib without RVR Normotensive Currently on room air Lower extremity swelling improving Discharge Data Studies Completed and Pending Completed Studies During Hospitalization Category Date Time Status CXRP [XR chest 1V portable 18006] Stat Exams 12/27/23 12:16 Completed Pending at discharge Category Date Time Status Blood Culture Stat Lab 12/27/23 12:10 Results Tick Panel Stat Lab 12/27/23 03:11 Received Radiology Impressions Chest X-Ray 12/27/23 12:16 IMPRESSION: Minimal atelectatic changes in left lung base. Laboratory Results WBC 12.90 10^3/uL (3.29-11.43) H 12/31/23 04:52 RBC 3.05 10^6/uL (3.85-5.65) L 12/31/23 04:52 Hgb 8.70 g/dL (11.27-16.99) L 12/31/23 04:52 Hct 26.9 % (37-53) L 12/31/23 04:52 MCV 88.2 fl (82-101) 12/31/23 04:52 MCH 28.5 pg (27-33) 12/31/23 04:52 MCHC 32.3 g/dL (30-55) 12/31/23 04:52 RDW 20.3 % (12.1-15.1) H 12/31/23 04:52 Plt Count 600 10^3/cmm (157-399) H 12/31/23 04:52 MPV 10.8 fL (7.4-10.4) H 12/31/23 04:52 Neut % (Auto) 91.4 % 12/31/23 04:52 Lymph % (Auto) 5.4 % 12/31/23 04:52 [place] % (Auto) 2.6 % 12/31/23 04:52 Eos % (Auto) 0.0 % 12/31/23 04:52 Baso % (Auto) 0.1 % 12/31/23 04:52 Neut # (Auto) 11.79 10^3/uL (1.8-7.7) H 12/31/23 04:52 Lymph # (Auto) 0.7 10^3/uL (0.8-4.8) L 12/31/23 04:52 [place] # (Auto) 0.3 10^3/uL (0.2-0.9) 12/31/23 04:52 Eos # (Auto) 0.0 10^3/uL (0.0-0.8) 12/31/23 04:52 Baso # (Auto) 0.0 10^3/uL (0.0-0.1) 12/31/23 04:52 Nucleated RBC % (auto) 0 % 12/31/23 04:52 Nucleated RBCs # 0.0 /100WBC 12/31/23 04:52 ESR 49 mm/hr (0-10) H 12/27/23 11:55 Haptoglobin 285.0 mg/L (30-200) H 12/28/23 05:49 PT 19.10 SECONDS (12.1-14.9) H 12/27/23 11:55 INR 1.55 (0.8-1.2) H 12/27/23 11:55 Sodium 132 mmol/L (136-145) L 12/31/23 04:52 Potassium 4.6 mmol/L (3.5-5.1) 12/31/23 04:52 Chloride 99 mmol/L (98-107) 12/31/23 04:52 Carbon Dioxide 20 mmol/L (22-29) L 12/31/23 04:52 Anion Gap 17.6 (5-19) 12/31/23 04:52 BUN 60 mg/dL (6-20) H 12/31/23 04:52 Creatinine 1.4 mg/dL (0.7-1.2) H 12/31/23 04:52 GFR Calculation 52.4 mL/min (90-130) L 12/31/23 04:52 Glucose 340 mg/dL (65-115) H 12/31/23 04:52 Calculated Osmolality 304 mOsm/kg (285-295) H 12/31/23 04:52 Lactic Acid 1.1 mmol/L (0.5-2.2) 12/27/23 11:55 Uric Acid 8.3 mg/dL (3.4-7.0) H 12/30/23 05:50 Calcium 9.6 mg/dL (8.5-10.5) 12/31/23 04:52 Phosphorus 3.6 mg/dL (2.5-4.5) 12/30/23 05:50 Magnesium 1.6 mg/dL (1.7-2.3) L 12/30/23 05:50 Total Bilirubin 1.1 mg/dL (0.15-1.2) 12/29/23 03:11 AST 13 U/L (0-40) 12/29/23 03:11 ALT 25 U/L (0-41) 12/29/23 03:11 Alkaline Phosphatase 100 U/L (40-130) 12/29/23 03:11 Lactate Dehydrogenase 151 U/L (135-225) 12/28/23 05:49 Creatine Kinase 57 U/L (39-308) 12/28/23 05:49 C-Reactive Protein 177.8 mg/L (0.0-4.9) H 12/29/23 03:11 NT-Pro-B Natriuret Pep 890 pg/mL (0-125) H 12/27/23 11:55 Total Protein 6.2 g/dL (6.6-8.7) L 12/29/23 03:11 Albumin 3.4 g/dL (3.5-5.2) L 12/30/23 05:50 Globulin 2.9 g/dL (1.3-4.6) 12/29/23 03:11 Procalcitonin 0.95 ng/mL (0-0.5) H 12/29/23 03:11 Urine Color Yellow (Yellow) 12/27/23 18:47 Urine Appearance Clear (CLEAR) 12/27/23 18:47 Urine pH 5 (5-7) 12/27/23 18:47 Ur Specific [place] 1.015 (1.005-1.030) 12/27/23 18:47 Urine Protein 1+ (Negative) H 12/27/23 18:47 Urine Glucose (UA) Norm (Normal) 12/27/23 18:47 Urine Ketones 1+ (Negative) H 12/27/23 18:47 Urine Blood Neg (Negative) 12/27/23 18:47 Urine Nitrate Negative (Negative) 12/27/23 18:47 Urine Bilirubin 1+ (Negative) H 12/27/23 18:47 Urine Urobilinogen 4 mg/dL (Negative) H 12/27/23 18:47 Ur Leukocyte Esterase Trace (Negative) H 12/27/23 18:47 Urine RBC 0-4 /hpf (0-2) H 12/27/23 18:47 Urine WBC 0-4 /hpf (0-5) H 12/27/23 18:47 Ur Squamous Epith Cells 0-4 /hpf (0-5) H 12/27/23 18:47 Amorphous Sediment 1+ /hpf 12/27/23 18:47 Urine Bacteria 2+ /hpf (NONE) H 12/27/23 18:47 Urine Mucus Trace /hpf 12/27/23 18:47 Urine Sperm 1+ /hpf 12/27/23 18:47 Fluid Crystals See path consult 12/27/23 13:42 Synovial Color Red (PALE YELLOW) 12/27/23 13:42 Synovial Appearance Cloudy (CLEAR) 12/27/23 13:42 Synovial WBC 9394 /uL (0-150) H 12/27/23 13:42 Synovial RBC 45 10^3/uL (0-0) H 12/27/23 13:42 Synovial Mononuclear 1.016 10^3/uL 12/27/23 13:42 Synov Polynuclear WBCs 8.378 10^3/uL 12/27/23 13:42 Synovial Other Cells Not Reportable 12/27/23 13:42 Synovial Polynuclear % 89.100 % 12/27/23 13:42 Synovial Mononuclear % 10.900 % 12/27/23 13:42 Vancomycin Trough 25.6 ug/mL (10-15) H* 12/29/23 03:11 Path Cons w/Slide Yes 12/27/23 13:42 Blood Type A Positive 12/28/23 07:25 Rho(D) Type Rh positive 12/28/23 07:25 Antibody Screen Negative 12/28/23 07:25 Crossmatch See Detail 12/28/23 07:25 Vitals Last Vital Signs Temp 97.9 F 12/31/23 07:38 Pulse 81 12/31/23 07:38 Resp 17 12/31/23 07:38 BP 116/62 12/31/23 07:38 Pulse Ox 93 12/31/23 07:38 O2 Del Method Room Air 12/31/23 07:38 FiO2 21 12/28/23 21:20 Discharge Plan Discharge Patient Disposition: Home Condition: Stable Prescriptions: New oxycodone 5 mg Tablet 5 mg PO Q4H PRN (Reason: Severe Pain) Qty: 10 0RF prednisone 10 mg tablet 10 mg PO DIRECTED Qty: 40 0RF Rx Instructions: see taper instructions [id number] alernate3 days&stop sennosides [senna] 8.6 mg Tablet 17.2 mg PO BEDTIME Qty: 5 0RF doxycycline monohydrate 100 mg Tablet 100 mg PO BID Qty: 6 0RF metoprolol tartrate 50 mg Tablet 50 mg PO Q12H Qty: 60 4RF Continued allopurinol 300 mg tablet 300 mg PO DAILY tramadol 50 mg tablet 50 mg PO TID PRN (Reason: Pain) aspirin 81 mg Tablet,Delayed Release (Dr/Ec) 81 mg PO DAILY galantamine 12 mg Tablet 12 mg PO BID Qty: 30 0RF rivaroxaban 20 mg tablet 20 mg PO DAILY Qty: 30 0RF Discontinued diltiazem HCl 300 mg Capsule,Extended Release 24hr 300 mg PO DAILY Qty: 30 0RF Discharge Orders: Discharge Order (Routine); Ordered 12/31/23 Ordered By: Philomena Carrero Referrals: Yu Lee APN [Primary Care Provider] - Patient Instructions: Opioid Safety Discharge Attestations Time Spent in Discharge Care*: greater than 30 min Quality Metrics Clinical Quality Measures [ No reported AMI, CVA or VTE this stay] Coding Level of Care Code Acute Code for Chg Fwd Diagnoses Chronic atrial fibrillation I48.20 Atrial fibrillation type: unspecified chronic On continuous oral anticoagulation Z79.01 Acute kidney injury N17.9 Recurrent cerebrovascular accidents (CVAs) I63.9 Pyruvate kinase (PK) deficiency anemia D55.21
[2023-12-31] MEDS: methylPREDNISolone sod succ 125 mg/2 mL INJ 60 MG IVP (11:14)
[2023-12-31 11:23] VITALS: BP 116/62; PULSE 81; RESP 17; TEMP 36.6; O2SAT 93
[2023-12-31 11:36] VITALS: BP 153/74; PULSE 74; RESP 16; O2SAT 91
[2023-12-31 13:19] LABS: Lyme AB Screen <0.90 index
[2024-01-02 17:30] LABS: RMSF IGG NOT DETECTED; RMSF IGM NOT DETECTED
[2024-01-02 20:45] LABS: E. Chaffeensis AB IGG <1:64; E. Chaffeensis AB IGM <1:20
== END 2023-12-31 12:20 | disposition home or self-care (01) | DRG 554 ==
LOC: ER 12:16 → MEDSURG 15:26
PROVIDERS: Admitting Provider Internal Medicine; Emergency Provider Emergency Medicine; PCP Nurse Practitioner Family; Visit Provider Internal Medicine
DX: M10.9 Gout, unspecified (principal); I48.20 Chronic atrial fibrillation, unspecified; N17.9 Acute kidney failure, unspecified; E87.20 Acidosis, unspecified; D53.9 Nutritional anemia, unspecified; E87.70 Fluid overload, unspecified; R00.0 Tachycardia, unspecified; E11.22 Type 2 diabetes mellitus with diabetic chronic kidney disease; I12.9 Hypertensive chronic kidney disease with stage 1 through stage 4 chronic kidney disease, or unspecified chronic kidney disease; N18.9 Chronic kidney disease, unspecified; I65.1 Occlusion and stenosis of basilar artery; I65.09 Occlusion and stenosis of unspecified vertebral artery; G47.33 Obstructive sleep apnea (adult) (pediatric); E78.5 Hyperlipidemia, unspecified; Z96.642 Presence of left artificial hip joint; F98.8 Other specified behavioral and emotional disorders with onset usually occurring in childhood and adolescence; T14.8XXA Other injury of unspecified body region, initial encounter; W57.XXXA Bitten or stung by nonvenomous insect and other nonvenomous arthropods, initial encounter; E87.5 Hyperkalemia; D63.1 Anemia in chronic kidney disease; Z79.82 Long term (current) use of aspirin; Z79.01 Long term (current) use of anticoagulants; Z86.73 Personal history of transient ischemic attack (TIA), and cerebral infarction without residual deficits; Z90.81 Acquired absence of spleen
CPT/HCPCS: 20610; 36415; 36430; 71045; 80048; 80053; 80069; 80202; 80503; 81001; 82550; 83010; 83605; 83615; 83735; 83880; 84100; 84145; 84550; 85014; 85018; 85025; 85610; 85651; 86140; 86618; 86666; 86757; 86850; 86900; 86902; 86920; 87040; 87070; 87075; 87205; 89050; 93005; 94660; 96365; 96367; 96375; 97110; 97161; 99285; G0378; J0456; J0696; J1885; J1940; J2270; J2405; J2919; J3370; J7030; J7050; P9016

== ENCOUNTER 2024-01-05 11:47 | Oncology outpatient (recurring) (ONCR) | payer OTHER, SELFPAY ==
[2024-01-05 12:52] LABS: Reticulocyte % 11.8 % (0.5-2.0)
[2024-01-05 12:54] LABS: Basophils % 0.1 %; Eosinophils % 0.1 %; Hematocrit 32.2 % (37-53); Lymphocytes # 2.1 10^3/uL (0.8-4.8); Lymphocytes % 8.9 %; Mean Corpuscular HGB Conc 31.4 g/dL (30-55); Mean Corpuscular Hemoglobin 28.4 pg (27-33); Mean Corpuscular Volume 90.4 fl (82-101); Mean Platelet Volume 11.2 fL (7.4-10.4); Monocytes # 1.2 10^3/uL (0.2-0.9); Neutrophils # 19.26 10^3/uL (1.8-7.7); Neutrophils % 81.7 %; Nucleated Red Blood Cells % 0.2 %; Platelet Count 891 10^3/cmm (157-399); Red Blood Count 3.56 10^6/uL (3.85-5.65); Red Cell Distribution Width 18.5 % (12.1-15.1); White Blood Count 23.58 10^3/uL (3.29-11.43)
[2024-01-05 13:08] LABS: Alanine Aminotransferase 18 U/L (0-41); Albumin Level 3.9 g/dL (3.5-5.2); Alkaline Phosphatase 103 U/L (40-130); Anion Gap 15.7 (5-19); Aspartate Amino Transferase 9 U/L (0-40); Blood Urea Nitrogen 57 mg/dL (6-20); C Reactive Protein 10.8 mg/L (0.0-4.9); Calcium 9.4 mg/dL (8.5-10.5); Carbon Dioxide 24 mmol/L (22-29); Chloride 99 mmol/L (98-107); Globulin 3.6 g/dL (1.3-4.6); Glomerular Filtration Rate 57.1 mL/min (90-130); Glucose 430 mg/dL (65-115); Iron 74 ug/dL (59-158); Lactate Dehydrogenase 137 U/L (135-225); Osmolality Calculated 310 mOsm/kg (285-295); Percent Saturation 31.2 % (20-50); Potassium 5.7 mmol/L (3.5-5.1); Sodium 133 mmol/L (136-145); Total Bilirubin 1.1 mg/dL (0.15-1.2); Total Iron Binding Capacity 237 mcg/dl; Total Protein 7.5 g/dL (6.6-8.7); Unsaturated Iron Binding 163 ug/dL (112-347)
[2024-01-05 13:22] LABS: Creatinine Clr Calc Pharmacy 77.1824
== END 2024-02-01 23:59 | disposition home or self-care (01) ==
PROVIDERS: PCP Nurse Practitioner Family; Visit Provider Internal Medicine Medical Oncology
DX: D55.21 Anemia due to pyruvate kinase deficiency (principal)
CPT/HCPCS: 36415; 80053; 83540; 83550; 83615; 85025; 85045; 86140

== ENCOUNTER 2024-05-10 10:04 | Oncology outpatient (recurring) (ONCR) | payer OTHER, SELFPAY ==
--- NOTE | 2024-05-10 10:00 | USCV_ITS ---
Ernei Plasencia Age: 58 Gender: M : 1965 Exam Date: 05/10/2024 10:30 Ordering Phys: Kelly Negrete Technologist: CT Exam Location: [facility] [place] Indication: ef BP: 136 / 81 HR: Rhythm: Sinus Technical Quality: Adequate MEASUREMENTS (Male / Female) Normal Values 2D ECHO LVOT Diameter 2.2 cm LV Ejection Fraction MOD 4C 66.1 % LV Ejection Fraction MOD 2C 58.4 % LV Ejection Fraction 2C AL 58.5 % LA Diameter 5.5 cm RA Systolic Volume 4C AL 68.8 ml RA Systolic Volume 4C MOD 66.2 ml LA Sys Volume AL 69.9 cm cubed LA Sys Volume Index AL 29.8 cm cubed/m squared Aorta at Sinotubular Diameter 2.5 cm IVC Diameter 2.6 cm M-MODE LA Ao Ratio MM 1.1 AV Cusp Separation MM 2.6 cm FINDINGS Left Ventricle Normal left ventricular size, systolic function and wall thickness, with no regional wall motion abnormalities. Left ventricular ejection fraction is estimated at 60 %. Grade I/IV diastolic dysfunction (abnormal relaxation filling pattern), normal to mildly elevated filling pressures. Right Ventricle The right ventricle is normal in size and function. Right Atrium The right atrium is normal in size. Left Atrium The left atrium is normal in size. Mitral Valve Structurally normal mitral valve without significant stenosis or prolapse. There is no mitral regurgitation. Aortic Valve Structurally normal aortic valve without significant sclerosis or stenosis. There is no aortic regurgitation. Tricuspid Valve Structurally normal tricuspid valve without significant stenosis or regurgitation. Pulmonary artery systolic pressure is normal. Pulmonic Valve Structurally normal pulmonic valve without significant stenosis. There is no pulmonic regurgitation. Pericardium Normal pericardium without effusion. Aorta Normal ascending aorta dimension. IVC The inferior vena cava appears normal. CONCLUSIONS Normal left ventricular size, systolic function and wall thickness, with no regional wall motion abnormalities. Left ventricular ejection fraction is estimated at 60 %. Grade I/IV diastolic dysfunction (abnormal relaxation filling pattern), normal to mildly elevated filling pressures. No significant valve abnormalities. There is no pericardial effusion. Insufficient TR jet to measure Pulmonary pressure Right atrial pressure is around 5 mm of mercury. Philomena Espinal MD (Electronically Signed) Final Date: 11 May 2024 12:17 S
== END 2024-06-03 23:59 | disposition home or self-care (01) ==
LOC: RAD 10:07 → ONCMED 13:06
PROVIDERS: PCP Nurse Practitioner Family; Visit Provider Internal Medicine Medical Oncology
DX: I50.20 Unspecified systolic (congestive) heart failure (principal); I50.30 Unspecified diastolic (congestive) heart failure
CPT/HCPCS: 93308

== ENCOUNTER → 2024-05-27 16:55 | Outpatient (BNVA) | payer OTHER, SELFPAY | PROVIDERS: PCP Nurse Practitioner Family; Visit Provider Family Medicine | DX: D55.21 Anemia due to pyruvate kinase deficiency (principal); M10.9 Gout, unspecified; R51.9 Headache, unspecified; E11.9 Type 2 diabetes mellitus without complications | CPT/HCPCS: 80053; 80061; 84439; 84443; 84550; 85025 ==

== ENCOUNTER 2024-09-13 19:40 | Emergency (ER) | payer OTHER, SELFPAY ==
[2024-09-13 19:41] VITALS: PULSE 97; RESP 18; TEMP 36.6; O2SAT 93; BMI 32.8
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
[2024-09-13 19:57] VITALS: PULSE 97; O2SAT 93
--- NOTE | 2024-09-13 20:25 | PC.NURSE ---
patient is refusing all medications, patient will only take if absolutely needed.
[2024-09-13 20:27] VITALS: BP 225/98; PULSE 87; RESP 18; O2SAT 94
[2024-09-13] MEDS: iohexol 350 mg/mL 500 mL Btl (per mL) IV (20:30)
[2024-09-13 20:37] VITALS: BP 220/100
[2024-09-13 21:27] VITALS: BP 216/95; PULSE 98; O2SAT 95
--- NOTE | 2024-09-16 23:22 | DCPLANNER ---
referral for urology sent to [facility] urology
== END 2024-09-13 21:28 | disposition home or self-care (01) ==
PROVIDERS: Emergency Provider Emergency Medicine; PCP Nurse Practitioner Family
DX: S39.012A Strain of muscle, fascia and tendon of lower back, initial encounter (principal); V89.2XXA Person injured in unspecified motor-vehicle accident, traffic, initial encounter; N28.89 Other specified disorders of kidney and ureter; E11.9 Type 2 diabetes mellitus without complications; I10 Essential (primary) hypertension
CPT/HCPCS: 36415; 72131; 74177; 99285

== ENCOUNTER 2024-10-22 18:34 | Inpatient (IN) | payer OTHER, SELFPAY ==
[2024-10-22 19:07] VITALS: BP 170/74; PULSE 112; RESP 20; TEMP 38.4; O2SAT 91
[2024-10-22 19:49] LABS: Basophils # 0.1 10^3/uL (0.0-0.1); Basophils % 0.3 %; Hematocrit 25.7 % (37-53); Lymphocytes # 1.8 10^3/uL (0.8-4.8); Lymphocytes % 6.7 %; Mean Corpuscular HGB Conc 31.5 g/dL (30-55); Mean Corpuscular Hemoglobin 33.6 pg (27-33); Mean Corpuscular Volume 106.6 fl (82-101); Mean Platelet Volume 11.6 fL (7.4-10.4); Monocytes # 3.1 10^3/uL (0.2-0.9); Monocytes % 11.7 %; Neutrophils # 21.55 10^3/uL (1.8-7.7); Neutrophils % 80.7 %; Nucleated Red Blood Cells # 0.1 /100WBC; Nucleated Red Blood Cells % 0.2 %; Platelet Count 396 10^3/cmm (157-399); Red Blood Count 2.41 10^6/uL (3.85-5.65); Red Cell Distribution Width 14.4 % (12.1-15.1); White Blood Count 26.71 10^3/uL (3.29-11.43)
[2024-10-22 20:09] LABS: Anion Gap 16.8 (5-19); Blood Urea Nitrogen 35 mg/dL (6-20); Calcium 9.1 mg/dL (8.5-10.5); Carbon Dioxide 21 mmol/L (22-29); Chloride 102 mmol/L (98-107); Glomerular Filtration Rate 41.8 mL/min (90-130); Glucose 310 mg/dL (65-115); Osmolality Calculated 300 mOsm/kg (285-295); Potassium 4.8 mmol/L (3.5-5.1); Sodium 135 mmol/L (136-145)
[2024-10-22 20:10] LABS: Lactic Sepsis W/Reflex 1.7 mmol/L (0.5-2.2)
[2024-10-22 20:51] VITALS: BP 174/88; PULSE 106; RESP 16; O2SAT 89
[2024-10-22 21:55] VITALS: BP 167/72; PULSE 106; RESP 16; O2SAT 91
--- NOTE | 2024-10-22 23:06 | XRR_ITS ---
PROCEDURE INFORMATION: Exam: XR Chest Exam date and time: 10/22/2024 11:21 PM Age: 59 years old Clinical indication: C/O fever. Has ulceration to left foot. ; Additional info: Possible sepsis TECHNIQUE: Imaging protocol: Radiologic exam of the chest. Views: 1 view. COMPARISON: CR XR chest 1V portable [id number] 12/27/2023 12:45 PM FINDINGS: Lungs: Calcified granulomas in the right lower lung zone. No consolidation. Pleural spaces: Unremarkable. No pleural effusion. No pneumothorax. Heart/Mediastinum: Mild cardiomegaly. Bones/joints: Unremarkable. XR/XR chest 1V portable [id number] IMPRESSION: 1. Mild cardiomegaly. 2. No acute cardiopulmonary process.
--- NOTE | 2024-10-22 23:06 | XRR_ITS ---
PROCEDURE INFORMATION: Exam: XR Left Foot Exam date and time: 10/22/2024 11:21 PM Age: 59 years old Clinical indication: Ulceration to plantar surface of left foot. ; Additional info: Foot wound, abscess. Medial side near mtp TECHNIQUE: Imaging protocol: Radiologic exam of the left foot. Views: 3 or more views. COMPARISON: No relevant prior studies available. FINDINGS: Bones/joints: Normal alignment. No acute fracture. Proliferative changes in the 1st MTP joint and ankle joint. Calcaneal spurs. No osseous destruction. Soft tissues: Extensive nonspecific medial forefoot soft tissue swelling. XR/XR foot LT min 3V* [id number] IMPRESSION: 1. Degenerative changes without evidence of acute osseous abnormality. 2. Extensive nonspecific medial forefoot soft tissue swelling.
[2024-10-22 23:08] VITALS: BP 144/73; PULSE 107; RESP 16; O2SAT 92
--- NOTE | 2024-10-22 23:12 | P.HP_ITS ---
Providers/Chief Complaint 2 Primary Care Provider: Yu Lee APN Chief Complaint: Dr Ebony Infection in L Foot History of Present Illness Ernie Plasencia is a 59 year old male with history of type 2 diabetes, noncompliant, has not taken antihyperglycemic agents for at least a year trying to manage with high-protein diet, lives alone, does not smoke or drink alcohol, presented to the hospital with chief complaint of worsening of foot pain and chills. Patient is stating that he has been experiencing foot pain for at least 1 month he has been soaking his foot in Epsom salt and will try to cover with dressing to soak the drainage but his symptom got worse and he started experiencing severe rigors/chills that prompted his visit in the ER. He is endorsing subjective fever no active chest pain nausea vomiting or diarrhea. Incision and drainage was done of left foot by the ER physician however patient still has copious amount of purulent drainage Patient is septic received septic bolus along antibiotics Dr. Fischer consulted by the ER physician Patient is stating that he has sleep apnea uses CPAP at home, currently is on 2 L saturating well Review of Systems 2 Const: Reports: chills Eyes: Denies: change in vision ENMT: Denies: throat pain Card: Denies: chest pain Resp: Denies: dyspnea GI: Denies: abdominal pain Skin/Breast: Reports: rash, skin tenderness and skin swelling Medications/Allergies Home Medications ?Medication ?Instructions ?Recorded ?Confirmed ?Last Taken ?Type allopurinol 300 mg tablet 300 mg PO BID #1 tab 2 4 10/22/24 Unknown Rx naproxen 500 mg tablet (Naprosyn) 500 mg PO BID PRN pa in #20 tabs 09/13/24 10/22/24 Unknown Rx Allergies Allergy/AdvReac Type Severity Reaction Status Date / Time Calcium Channel Blocking Allergy Unknown Verified 10/22/24 18:08 Agent Dilt PFSH Acute 2 PFSH: Medical History (Updated 10/23/24 @ 00:08 by Philomena Carrero MD) Sepsis Erectile disorder due to medical condition in male Cardiac left ventricular ejection fraction greater than or equal to 40 percent Actinic keratosis Seborrheic keratosis Pyruvate kinase (PK) deficiency anemia On continuous oral anticoagulation Recurrent cerebrovascular accidents (CVAs) Atrial fibrillation Atrial flutter Acute kidney injury Macrocytic anemia Leukocytosis Febrile Leg pain, left Tick bite Attention deficit disorder Type 2 diabetes mellitus Basilar artery stenosis Vertebrobasilar ischemia Obstructive sleep apnea Hyperlipidemia Type 2 diabetes mellitus Gout Hx of ischemic vertebrobasilar artery brainstem stroke (2012) Hypertension Surgical History History of colonoscopy (2014) History of bone marrow biopsy (01/07/14) Bone marrow aspiration and biopsy at [facility] H/O knee surgery Left knee cap repair - JAVON Taylor - Dr. 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 Daughter Anesthesia complication Mother Cancer Lung Other Diabetes Hyperlipidemia Hypertension Stroke Denies family history of CAD (coronary artery disease) Clotting disorder Dementia Psychiatric illness Chronic kidney disease (CKD) Suicide Bleeding disorder Lung disease Social History Smoking and tobacco/nicotine status: never used tobacco/nicotine Alcohol intake: never Substance/Drug Use: never service: Yes Vitals/I&O/Wt Last Vital Signs Temp 101.1 F H 10/22/24 19:07 Pulse 107 H 10/22/24 23:08 Resp 16 10/22/24 23:08 BP 144/73 10/22/24 23:08 Pulse Ox 92 10/22/24 23:08 O2 Del Method Room Air 10/22/24 23:08 Weight last 48 hrs Weight 111.13 kg Physical Exam 2 Narrative: Morbidly obese male Currently on 2 L No audible stridor or wheezing Lower extremity 1+ edema GCS 15 Nonfocal neuroexam Pleasant and cooperative Pressured speech noted Febrile with tachycardia Hypertensive No active chest pain S1, S2 Distended nontender abdomen No signs of vascular compromise of lower extremity Sepsis: Is patient septic: Yes Focused sepsis exam performed: Yes F ocused sepsis exam: No skin mottling Cap refill less than 3 seconds Awake and alert Saturating well on 2 L nasal cannula Heart rate 105 sinus tachycardia Febrile Date exam was performed: 10/23/24 Time exam was performed: 00:06 Data 10/22/24 19:40 10/22/24 19:40 Micro: Microbiology 10/22/24 19:42 Blood Culture - Preliminary Blood SPECIMEN COLLECTED 10/22/24 19:40 Blood Culture - Preliminary Blood SPECIMEN COLLECTED A&P Assessment and plan (1) Open wound of left foot: (2) Diabetic foot ulcer: (3) Cellulitis: (4) Sepsis: (5) Chronic kidney disease: Plan Sepsis Criteria met with tachypnea tachycardia fever leukocytosis Source is left foot cellulitis Purulent cellulitis Copious amount of purulent drainage noted Considering noncompliance with diabetic medications we will keep patient on broad-spectrum antibiotics IV Zosyn and vancomycin Dr. Eller consulted Will keep patient n.p.o. in case he would go for another I&D in the morning I&D done by the ER physician today as well X-rays not showing sign of osteomyelitis Opioids along bowel regimen Considering concern for CHF exacerbation judicious use of septic bolus Type 2 diabetes: Patient has not taken any antihyperglycemic agent hemoglobin A1c is around 6.5, It was around 9 few years ago, patient is trying to control his diabetes with diet and high-protein intake Diastolic CHF mild exacerbation: Will do very low-dose Lasix in the morning No active chest pain Previous echo reviewed No need to repeat echo at this point Chronic kidney disease: No acute exacerbation: Patient is hypertensive optimize antihypertensive regimen N.p.o. for now until evaluated by podiatry in the morning Full code DVT prophylaxis SCDs in case patient requires intervention in the morning Sleep apnea: Uses CPAP at home currently requiring 2 L GI prophylaxis: Protonix Chronic history of gout: Continue maintenance therapy of allopurinol PDMP PDMP Reviewed: Not Reviewed Attestations 2 Medical Necessity Statement*: More than 2 midnights anticipated Diagnoses Open wound of left foot S91.302A Diabetic foot ulcer E11.621; L97.509 Cellulitis L03.90 Sepsis A41.9 Chronic kidney disease N18.9
[2024-10-22 23:27] LABS: INR 1.02 (0.8-1.2)
[2024-10-22 23:28] LABS: Partial Thromboplastin Time 35.1 SECONDS (23.9-36.7)
[2024-10-22 23:30] VITALS: BP 172/72; PULSE 105; RESP 20; O2SAT 91
[2024-10-22] MEDS: piperacillin-tazobactam 4.5 GM in sodium chloride 0.9% (plus) 50 ML IV (23:32)
[2024-10-22] MEDS: sodium chloride 0.9% 1,000 ML 999 ML IV (23:33)
[2024-10-22 23:34] LABS: Alanine Aminotransferase 19 U/L (0-41); Albumin Level 3.9 g/dL (3.5-5.2); Alkaline Phosphatase 95 U/L (40-130); Aspartate Amino Transferase 13 U/L (0-40); Globulin 3.6 g/dL (1.3-4.6); Magnesium 1.7 mg/dL (1.7-2.3); Phosphorus 2.6 mg/dL (2.5-4.5); Total Bilirubin 1.9 mg/dL (0.15-1.2); Total Protein 7.5 g/dL (6.6-8.7)
--- NOTE | 2024-10-22 23:36 | ED_ITS ---
HPI - Extremity Problem 2 General: Chief complaint: Extremity Injury, Lower Stated complaint: Dr Beck Infection in L Foot Time Seen by Provider: 10/22/24 20:46 Source: patient Mode of arrival: ambulatory Limitations: no limitations History of Present Illness: Patient arrives feeling unwell very fatigued. Noticed a foot wound on his left foot. Patient reports left foot wound and a general feeling of being sick. Denies any cough, dysuria, diarrhea. Related Data Previous Rx's ?Medication ?Instructions ?Recorded cyclobenzaprine 5 mg tablet 5 mg PO TID PRN muscle spa sm #10 04/21/24 tabs allopurinol 300 mg tablet 300 mg PO BID #1 tab 4 ketorolac 10 mg tablet 10 mg PO Q8H PRN pain #30 ta bs 05/27/24 prednisone 10 mg tablet 10 mg PO BID #60 tabs hydrocodone 5 mg-acetaminophen 325 1 tab PO Q6H PRN pa in #14 tabs 09/13/24 mg tablet naproxen 500 mg tablet (Naprosyn) 500 mg PO BID PRN pa in #20 tabs 09/13/24 Allergies Allergy/AdvReac Type Severity Reaction Status Date / Time Calcium Channel Blocking Allergy Unknown Verified 10/22/24 18:08 Agent Dilt Review of Systems 2 General: Reports: 10 or more systems reviewed and unremarkable except in HPI and below PFSH ED 2 PFSH: Medical History Actinic keratosis Seborrheic keratosis Pyruvate kinase (PK) deficiency anemia On continuous oral anticoagulation Recurrent cerebrovascular accidents (CVAs) Atrial fibrillation Atrial flutter Acute kidney injury Macrocytic anemia Leukocytosis Febrile Leg pain, left Tick bite Attention deficit disorder Type 2 diabetes mellitus Basilar artery stenosis Vertebrobasilar ischemia Obstructive sleep apnea Hyperlipidemia Type 2 diabetes mellitus Gout Hx of ischemic vertebrobasilar artery brainstem stroke (2012) Hypertension Surgical History History of colonoscopy (2014) History of bone marrow biopsy (01/07/14) Bone marrow aspiration and biopsy at [facility] H/O knee surgery Left knee cap repair - JAVON Taylor - Dr. 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 Daughter Anesthesia complication Mother Cancer Lung Other Diabetes Hyperlipidemia Hypertension Stroke Denies family history of CAD (coronary artery disease) Clotting disorder Dementia Psychiatric illness Chronic kidney disease (CKD) Suicide Bleeding disorder Lung disease Social History Smoking and tobacco/nicotine status: never used tobacco/nicotine Alcohol intake: never Substance/Drug Use: never service: Yes Physical Exam 2 Const: COMMON NORMALS: no acute distress, average body habitus, patient oriented x3, alert and well nourished GENERAL APPEARANCE: well kempt and well developed OTHER: Ill-appearing HENMT: COMMON NORMALS: normocephalic, atraumatic, external ears normal and moist oral mucous membranes HEAD & SCALP: normocephalic and atraumatic E XTERNAL EAR: Yes external ears normal Eye: COMMON NORMALS: Equal, round and reactive pupils present, EOMs intact bilaterally and conjunctivae normal CONJUNCTIVA: Yes conjunctivae normal P UPIL: Yes Equal, round and reactive pupils present Neck/C-Spine: COMMON NORMALS: full ROM, no lymphadenopathy and supple Chest: CHEST: Yes Symmetrical chest wall rise and No Surgical scars present (Chest) Resp: COMMON NORMALS: normal respiratory effort, No retractions, No use of accessory muscles and clear to auscultation bilaterally AUSCULTATION: clear to auscultation bilaterally Cardio: COMMON NORMALS: regular rhythm, S1 normal heart sound present, S2 normal heart sound present, No gallops present (Cardio), No clicks present (Cardio), No murmurs present (Cardio) and No rub (Cardio) RATE: tachycardic RHYTHM: regular rhythm HEART SOUNDS: S1 normal heart sound present, S2 normal heart sound present and no murmurs PERIPHERAL PULSES: other (Radial pulses 2+ and symmetric) GI: COMMON NORMALS: Soft to palpation, non-tender and no masses INSPECTION: No abdominal distension PALPATION: Yes Soft to palpation, No Guarding due to palpation present (GI) and No Rebound tenderness present : COMMON NORMALS: Yes no CVA tenderness BLADDER/KIDNEY EXAM: Yes no CVA tenderness Back/Pelvis: COMMON NORMALS: no CVA tenderness Extremity: COMMON NORMALS: normal to inspection, full ROM, capillary refill normal and no clubbing, cyanosis or edema Neuro: COMMON NORMALS: patient oriented x3 SENSORIUM/ORIENTATION: Yes alert Psych: APPEARANCE: Yes well kempt Skin: COMMON NORMALS: no rashes or lesions noted, turgor normal and no jaundice GENERAL SKIN EXAM: no rashes or lesions noted and turgor normal W OUNDS: Yes wounds noted (Erythematous area of the distal left foot with a 2 mm opening medial to th) drainage purulent Course 2 Vital Signs: Vital signs: Vital Signs Temperature 101.1 F H 10/22/24 19:07 Pulse Rate 107 H 10/22/24 23:08 Respiratory Rate 16 10/22/24 23:08 Blood Pressure 144/73 10/22/24 23:08 Pulse Oximetry 92 10/22/24 23:08 Oxygen Delivery Me thod Room Air 10/22/24 23:08 MDM - Extremity (Nontraumatic) Medical Decision Making Patient appears to be an early sepsis no signs of severe sepsis or septic shock. Tachycardic febrile with a left foot wound. Expressed a copious amount of pus from the left foot approximately 5 to 10 cc. X-ray has been done showing no signs of neck Fash, no frankly obvious osteomyelitis on my interpretation, radiology overread pending. X-ray of the chest also done with no acute disease. Started on IV antibiotics and fluids, consulted hospitalist and podiatry for admission and treatment of foot wound Medical Records I reviewed the patient's medical records. Lab Data I reviewed the patient's lab results. 10/22/24 19:40 10/22/24 19:40 Laboratory Results WBC 26.71 10^3/uL (3.29-11.43) H 10/22/24 19:40 RBC 2.41 10^6/uL (3.85-5.65) L 10/22/24 19:40 Hgb 8.10 g/dL (11.27-16.99) L 10/22/24 19:40 Hct 25.7 % (37-53) L 10/22/24 19:40 MCV 106.6 fl (82-101) H 10/22/24 19:40 MCH 33.6 pg (27-33) H 10/22/24 19:40 MCHC 31.5 g/dL (30-55) 10/22/24 19:40 RDW 14.4 % (12.1-15.1) 10/22/24 19:40 Plt Count 396 10^3/cmm (157-399) 10/22/24 19:40 MPV 11.6 fL (7.4-10.4) H 10/22/24 19:40 Neut % (Auto) 80.7 % 10/22/24 19:40 Lymph % (Auto) 6.7 % 10/22/24 19:40 Monroe % (Auto) 11.7 % 10/22/24 19:40 Eos % (Auto) 0.0 % 10/22/24 19:40 Baso % (Auto) 0.3 % 10/22/24 19:40 Neut # (Auto) 21.55 10^3/uL (1.8-7.7) H 10/22/24 19:40 Lymph # (Auto) 1.8 10^3/uL (0.8-4.8) 10/22/24 19:40 Monroe # (Auto) 3.1 10^3/uL (0.2-0.9) H 10/22/24 19:40 Eos # (Auto) 0.0 10^3/uL (0.0-0.8) 10/22/24 19:40 Baso # (Auto) 0.1 10^3/uL (0.0-0.1) 10/22/24 19:40 Nucleated RBC % (auto) 0.2 % 10/22/24 19:40 Nucleated RBCs # 0.1 /100WBC 10/22/24 19:40 PT 14.10 SECONDS (12.1-14.9) 10/22/24 19:40 INR 1.02 (0.8-1.2) 10/22/24 19:40 APTT 35.1 SECONDS (23.9-36.7) 10/22/24 19:40 Sodium 135 mmol/L (136-145) L 10/22/24 19:40 Potassium 4.8 mmol/L (3.5-5.1) 10/22/24 19:40 Chloride 102 mmol/L (98-107) 10/22/24 19:40 Carbon Dioxide 21 mmol/L (22-29) L 10/22/24 19:40 Anion Gap 16.8 (5-19) 10/22/24 19:40 BUN 35 mg/dL (6-20) H 10/22/24 19:40 Creatinine 1.7 mg/dL (0.7-1.2) H 10/22/24 19:40 GFR Calculation 41.8 mL/min (90-130) L 10/22/24 19:40 Glucose 310 mg/dL (65-115) H 10/22/24 19:40 Calculated Osmolality 300 mOsm/kg (285-295) H 10/22/24 19:40 Lactic Acid 1.7 mmol/L (0.5-2.2) 10/22/24 19:40 Calcium 9.1 mg/dL (8.5-10.5) 10/22/24 19:40 Phosphorus 2.6 mg/dL (2.5-4.5) 10/22/24 19:40 Magnesium 1.7 mg/dL (1.7-2.3) 10/22/24 19:40 AST 13 U/L (0-40) 10/22/24 19:40 ALT 19 U/L (0-41) 10/22/24 19:40 Alkaline Phosphatase 95 U/L (40-130) 10/22/24 19:40 Total Protein 7.5 g/dL (6.6-8.7) 10/22/24 19:40 Albumin 3.9 g/dL (3.5-5.2) 10/22/24 19:40 Globulin 3.6 g/dL (1.3-4.6) 10/22/24 19:40 XR interpretation done by ED provider, pending radiology final review ED provider radiology interpretation(s): See MDM statement Discharge Plan Discharge Patient Disposition: Admitted As Inpatient Clinical Impression: Sepsis, Open wound of left foot Condition: Stable Coding Level of Care Code ED Slot Machine Floor Person for Shira Mckinley
[2024-10-22 23:41] LABS: Procalcitonin 0.63 ng/mL (0-0.5)
[2024-10-22 23:55] LABS: Estmated Average Glucose 140; Hemoglobin A1C 6.5 % (4.0-6.0)
[2024-10-22 23:56] VITALS: BP 151/87; PULSE 105; RESP 20; TEMP 37.5; O2SAT 92
[2024-10-23] VITALS (24 sets, daily range): BP systolic 119–182; BP diastolic 55–90; PULSE 76–127; RESP 12–22; TEMP 36.4–37.9; O2SAT 88–98
[2024-10-23] MEDS: sodium chloride 0.9% 1,000 ML 999 ML IV (00:21)
[2024-10-23] MEDS: vancomycin 2,000 MG/400 ML PIGGYBACK 200 MG IV (00:21)
[2024-10-23] MEDS: hyDRALAzine 20 mg/mL INJ 1 mL 10 MG IVP (01:00)
[2024-10-23 01:44] LABS: Bilirubin Urine Negative (Negative); Blood Urine Negative (Negative); Glucose Urine UA 2+ (Normal); Ketones Urine Negative (Negative); Leukocyte Esterase Urine Negative (Negative); Nitrate Urine Negative (Negative); Protein Urine 2+ (Negative); Specific Gravity, Urine 1.016 (1.005-1.030); Urine Appearance Clear (CLEAR); Urine Color Yellow (Yellow)
[2024-10-23 01:49] LABS: Add Urine Microscopic? YES; Bacteria Urine None Seen /hpf; Hyaline Casts Urine 8.67 /lpf; RBC Urine 0-2 /hpf (0-2); Squamous Epithelial Cell Urine 0-5 /hpf (0-5); Universal Test for UA Present (0); WBC Urine 0-5 /hpf (0-5)
[2024-10-23 02:00] LABS: Add Urine Culture? No; Amorphous Sediment Urine 1+ /hpf
[2024-10-23 05:56] LABS: Basophils # 0.1 10^3/uL (0.0-0.1); Basophils % 0.3 %; Eosinophils % 0.1 %; Lymphocytes # 3.4 10^3/uL (0.8-4.8); Lymphocytes % 12.8 %; Mean Corpuscular HGB Conc 30.7 g/dL (30-55); Mean Corpuscular Hemoglobin 32.8 pg (27-33); Mean Corpuscular Volume 106.9 fl (82-101); Mean Platelet Volume 11.9 fL (7.4-10.4); Monocytes # 4.4 10^3/uL (0.2-0.9); Monocytes % 16.7 %; Neutrophils # 18.31 10^3/uL (1.8-7.7); Neutrophils % 69.5 %; Nucleated Red Blood Cells % 0.1 %; Platelet Count 314 10^3/cmm (157-399); Red Blood Count 1.89 10^6/uL (3.85-5.65); Red Cell Distribution Width 14.4 % (12.1-15.1); White Blood Count 26.36 10^3/uL (3.29-11.43)
[2024-10-23 05:59] LABS: Hematocrit 20.2 % (37-53)
[2024-10-23 06:16] LABS: Anion Gap 15.2 (5-19); Blood Urea Nitrogen 34 mg/dL (6-20); C Reactive Protein 156.3 mg/L (0.0-4.9); Calcium 8.1 mg/dL (8.5-10.5); Carbon Dioxide 20 mmol/L (22-29); Chloride 104 mmol/L (98-107); Glomerular Filtration Rate 41.8 mL/min (90-130); Glucose 240 mg/dL (65-115); Magnesium 1.7 mg/dL (1.7-2.3); Osmolality Calculated 295 mOsm/kg (285-295); Potassium 4.2 mmol/L (3.5-5.1); Sodium 135 mmol/L (136-145)
[2024-10-23] MEDS: piperacillin-tazobactam 3.375 GM in sodium chloride 0.9% (plus) 50 ML IV ×3 (06:25→22:55)
[2024-10-23 06:26] LABS: Glucose Point of Care 265 mg/dL (70-110)
--- NOTE | 2024-10-23 07:26 | PHA.VACGOAL ---
Vancomycin Goal - Goal Vancomycin Goal:: 15-20 mg/L - Therapy Current therapy:: Pip/Tazo Day of therpy:: Day []of [] . Actual body weight (kg): 111.64 kg - Data Labs: WBC 26.36 10^3/uL (3.29-11.43) H 10/23/24 05:34 RBC 1.89 10^6/uL (3.85-5.65) L 10/23/24 05:34 Hgb 6.20 g/dL (11.27-16.99) L* 10/23/24 05:34 Hct 20.2 % (37-53) L* 10/23/24 05:34 MCV 106.9 fl (82-101) H 10/23/24 05:34 MCH 32.8 pg (27-33) 10/23/24 05:34 MCHC 30.7 g/dL (30-55) 10/23/24 05:34 RDW 14.4 % (12.1-15.1) 10/23/24 05:34 Sodium 135 mmol/L (136-145) L 10/23/24 05:34 Potassium 4.2 mmol/L (3.5-5.1) 10/23/24 05:34 Chloride 104 mmol/L (98-107) 10/23/24 05:34 Carbon Dioxide 20 mmol/L (22-29) L 10/23/24 05:34 Anion Gap 15.2 (5-19) 10/23/24 05:34 BUN 34 mg/dL (6-20) H 10/23/24 05:34 Creatinine 1.7 mg/dL (0.7-1.2) H 10/23/24 05:34 GFR Calculation 41.8 mL/min (90-130) L 10/23/24 05:34 Treatment plan:: new consult Regimen:: New start vancomycin started for Sepsis/Cellulitis. Load dose of 2000 mg given. Maintenance dose of 1500 mg q18h started.
[2024-10-23 07:29] LABS: Hematocrit 20.3 % (37-53)
--- NOTE | 2024-10-23 08:06 | P.CONIM_ITS ---
Providers/Reason For Consult 2 Consulting Physician/Specialty*: Rebeca Black.P.M./podiatry Reason for Consult*: Left foot abscess Attending Physician: Philomena Carrero MD Primary Care Provider: Yu Lee APN History of Present Illness History of Present Illness Ernie Plasencia is a 59 year old male with history of uncontrolled type 2 diabetes, pyruvate kinase deficiency anemia with spleen removal approximately 12 years ago, presented to the emergency department last night 10/22/2024 after being directed there by Dr. Borges for worsening left foot infection with drainage. Workup in the ER revealed sepsis. Podiatry is consulted to evaluate and provide further treatment recommendations. Patient states that the wound has been present for approximately 1 month. Patient had been self treating at home with Epsom salt soaks and local dressing changes. The wound has worsened over the past 2 to 3 days. Patient developed fever, chills, nausea and was directed to the emergency department. Of note, patient also has a long history of gout which has affected elbow, knees. Review of Systems 2 General: Reports: 10 or more systems reviewed and unremarkable except in HPI and below Const: Denies: fever(s), chills, body aches or change in appetite Eyes: Denies: change in vision or blurry vision Card: Denies: chest pain, palpitations or irregular heart rhythm Resp: Denies: dyspnea GI: Denies: abdominal pain, nausea, vomiting or diarrhea Musc: Reports: joint stiffness Skin/Breast: Reports: non-healing lesions and lesions Neuro: Reports: numbness in extremities Medications/Allergies Home Medications ?Medication ?Instructions ?Recorded ?Confirmed ?Last Taken ?Type allopurinol 300 mg tablet 300 mg PO BID #1 tab 05/22/2 4 10/22/24 Unknown Rx naproxen 500 mg tablet (Naprosyn) 500 mg PO BID PRN pa in #20 tabs 09/13/24 10/22/24 Unknown Rx Allergies Allergy/AdvReac Type Severity Reaction Status Date / Time Calcium Channel Blocking Allergy Unknown Verified 10/22/24 18:08 Agent Dilt Current Medications Generic Name Dose Route Start Last Admin Trade Name Freq PRN Reason Stop Dose Admin Hydralazine HCl 10 mg 10/23/24 00:51 10/23/24 01:00 Hydralazine 20 Mg/Ml Inj 1 Ml IVP 10 mg Q4H PRN Administration bp>180/90mmhg Piperacillin Sod/Tazobactam 50 mls @ 12.5 mls/hr 10/23/24 07:00 10/23/24 06:25 Sod 3.375 gm/ Sodium Chloride IV 12.5 mls/hr Q8H ROBBIE Administration PFSH Acute 2 PFSH: Medical History (Updated 10/23/24 @ 08:13 by Beni Fischer DPM) Type 2 diabetes mellitus Sepsis Erectile disorder due to medical condition in male Cardiac left ventricular ejection fraction greater than or equal to 40 percent Actinic keratosis Seborrheic keratosis Pyruvate kinase (PK) deficiency anemia On continuous oral anticoagulation Recurrent cerebrovascular accidents (CVAs) Atrial fibrillation Atrial flutter Acute kidney injury Macrocytic anemia Leukocytosis Febrile Leg pain, left Tick bite Attention deficit disorder Type 2 diabetes mellitus Basilar artery stenosis Vertebrobasilar ischemia Obstructive sleep apnea Hyperlipidemia Gout Hx of ischemic vertebrobasilar artery brainstem stroke (2012) Hypertension Surgical History History of colonoscopy (2014) History of bone marrow biopsy (01/07/14) Bone marrow aspiration and biopsy at [facility] H/O knee surgery Left knee cap repair - JAVON Taylor - Dr. 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 Daughter Anesthesia complication Mother Cancer Lung Other Diabetes Hyperlipidemia Hypertension Stroke Denies family history of CAD (coronary artery disease) Clotting disorder Dementia Psychiatric illness Chronic kidney disease (CKD) Suicide Bleeding disorder Lung disease Social History Smoking and tobacco/nicotine status: never used tobacco/nicotine Alcohol intake: never Substance/Drug Use: never service: Yes Vitals/I&O/Wt Last Vital Signs Temp 98.4 F 10/23/24 07:57 Pulse 90 10/23/24 07:57 Resp 16 10/23/24 07:57 BP 134/71 10/23/24 07:57 Pulse Ox 97 10/23/24 07:57 O2 Del Method Nasal Cannula 10/23/24 07:57 O2 Flow Rate 1 10/23/24 07:57 10/22/24 10/23/24 10/23/24 22:59 06:59 14:59 Intake Total 2450.000 / 2450.000 Output Total 1300 / 1300 Balance 1150.000 / 1150.000 Weight last 48 hrs Weight 246 lb 2 oz Weight 245 lb Physical Exam 2 Narrative: BELOW IS A FOCUSED LOWER EXTREMITY EXAM GENERAL: A&O x 3 VASCULAR: DP/PT pulses palpable 2/4 with CFT intact, <3seconds to distal digits DERMATOLOGICAL: Full-thickness ulceration to medial aspect of left first metatarsal head measuring 0.4 x 0.5 x 0.2 cm, active purulent drainage. Surrounding erythema. No proximal lymphangitic streaking. MUSCULOSKELETAL: Tenderness with palpation of medial left first metatarsophalangeal joint periwound area. Prominent first metatarsal head region likely from underlying tophi. NEUROLOGICAL: Neurological sensation to the affected foot and ankle is present through L4-S1 dermatomes with no hyper/hypoesthesias, negative Tinel or Valleix's sign IMAGING: Three-view x-rays of left foot taken in the emergency department person interpreted by me. These show increase of tissue swelling to the left foot surrounding the first metatarsophalangeal joint region. Medial oblique view shows early Nick sign of medial first metatarsal head. No subcutaneous emphysema noted. Data 10/23/24 06:44 10/23/24 05:34 Micro: Microbiology 10/22/24 19:42 Blood Culture - Preliminary Blood SPECIMEN COLLECTED 10/22/24 19:40 Blood Culture - Preliminary Blood SPECIMEN COLLECTED A&P Assessment and plan (1) Diabetic foot ulcer: (2) Sepsis: (3) Type 2 diabetes mellitus: Plan -Left first metatarsal head ulceration with underlying abscess. 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 Sepsis. -Labs and vitals reviewed -WBC 26 -ESR N/A -CRP 156.3 -HR 90 -RR 16 -Tmax 101.1 -Cultures pending -Abx Vanco/Zosyn -Diet: N.p.o. -Plan for incision and drainage left foot today 10/23/2024. Patient H&H dropped overnight. Will need to be medically optimized prior to procedure. -Pain Mgmt: Per primary team -Weight bearing: Weightbearing to left foot for transfers only -Dressings: Dry sterile dressing applied by podiatry this morning -Continue current Abx therapy until ID and Sensitivity results -Trend labs -Discharge plan: To be determined -Podiatry will continue to round on patient daily and provide recommendations PDMP PDMP Reviewed: Not Reviewed Coding Level of Care Code Acute Code for Chg Fwd Diagnoses Diabetic foot ulcer E11.621; L97.509 Sepsis A41.9 Type 2 diabetes mellitus E11.9
--- NOTE | 2024-10-23 09:03 | ANES.PREANE2 ---
Pre-Anesthetic Assessment Height/Weight: Height 5 ft 11 in Weight 246 lb 2 oz Temp Pulse Resp BP Pulse Ox O2 Del Method O2 Flow Rate 98.4 F 90 16 134/71 93 Nasal Cannula 1 10/23/24 07:57 10/23/24 07:57 10/23/24 07:57 10/23/24 07:57 10/23/24 08:41 10/23/24 07:57 10/23/24 07:57 Preop Diagnosis: Osteomyelitis Operation Date: 10/23/24 10:45 Proposed Procedures p Incision And Drainage Left Foot(Left) - Beni Fischer DPM Was Beta Shama taken within 24 hours: N/A Was Clonidine taken within 24 hours: N/A Last intake: Intake Last Liquid Date 10/22/24 Last Liquid Time 23:59 Last Solid Date 10/21/24 Last Solid Time 17:00 Social No alcohol and No tobacco Exam alert, oriented x 3, clear to auscultation bilaterally and regular rate & rhythm Airway Submandibular: within normal limits Cervical ROM: within normal limits Mallampati: Class IV Dentition: full Comments: Comments: Small mouth opening, large neck circumference Anesthetic Plan ASA status: 3 Anesthesia: MAC Other: Patient admitted overnight with sepsis and osteomyelitis of lower extremity No prior issues with anesthesia NPO since Patient has a history of pyruvate kinase deficiency, hemoglobin 8.1 at admission. 6.3 this a.m. 1 unit PRBCs Recurrent CVAs with basilar artery stenosis. Most recent stroke 1 year ago. Left-sided paresthesias. Patient took himself off Plavix and is on homeopathic regimen with cayenne pepper A-fib history Type 2 diabetes, BS 240 this a.m. KRYSTIAN, wears CPAP nightly Chronic hyponatremia noted. NA 135 this a.m. Chronic CKD. CR baseline 1.7 Echo from 2023 showing EF 60% Plan for MAC anesthesia Medications/Allergies Home Medications ?Medication ?Instructions ?Recorded ?Confirmed ?Last Taken ?Type allopurinol 300 mg tablet 300 mg PO BID #1 tab 05/22/24 10/22/24 Unknown Rx naproxen 500 mg tablet (Naprosyn) 500 mg PO BID PRN pain #20 tabs 09/13/24 10/22/24 Unknown Rx Allergies Allergy/AdvReac Type Severity Reaction Status Date / Time Calcium Channel Blocking Allergy Unknown Verified 10/22/24 18:08 Agent Dilt Current Medications Generic Name Dose Route Start Last Admin Trade Name Freq PRN Reason Stop Dose Admin Hydralazine HCl 10 mg 10/23/24 00:51 10/23/24 01:00 Hydralazine 20 Mg/Ml Inj 1 Ml IVP 10 mg Q4H PRN Administration bp>180/90mmhg Piperacillin Sod/Tazobactam 50 mls @ 12.5 mls/hr 10/23/24 07:00 10/23/24 06:25 Sod 3.375 gm/ Sodium Chloride IV 12.5 mls/hr Q8H ROBBIE Administration PFSH Anesthesia Medical History (Updated 10/23/24 @ 08:13 by Beni Fischer DPM) Type 2 diabetes mellitus Sepsis Erectile disorder due to medical condition in male Cardiac left ventricular ejection fraction greater than or equal to 40 percent Actinic keratosis Seborrheic keratosis Pyruvate kinase (PK) deficiency anemia On continuous oral anticoagulation Recurrent cerebrovascular accidents (CVAs) Atrial fibrillation Atrial flutter Acute kidney injury Macrocytic anemia Leukocytosis Febrile Leg pain, left Tick bite Attention deficit disorder Type 2 diabetes mellitus Basilar artery stenosis Vertebrobasilar ischemia Obstructive sleep apnea Hyperlipidemia Gout Hx of ischemic vertebrobasilar artery brainstem stroke (2012) Hypertension Surgical History History of colonoscopy (2014) History of bone marrow biopsy (01/07/14) Bone marrow aspiration and biopsy at [facility] H/O knee surgery Left knee cap repair - Elsie GarciafieldJAVON - Dr. 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 Daughter Anesthesia complication Mother Cancer Lung Other Diabetes Hyperlipidemia Hypertension Stroke Denies family history of CAD (coronary artery disease) Clotting disorder Dementia Psychiatric illness Chronic kidney disease (CKD) Suicide Bleeding disorder Lung disease Social History Smoking and tobacco/nicotine status: never used tobacco/nicotine Alcohol intake: never Substance/Drug Use: never service: Yes Data Anesthesia 10/23/24 06:44 10/23/24 05:34 Short CBC 10/22/24 10/23/2425 Range/Units 19:40 05:34 06:44 WBC 26.71 H 26.36 H (3.29-11.43) 10^3/uL Hgb 8.10 L 6.20 L* 6.30 L* (11.27-16.99) g/dL Hct 25.7 L 20.2 L* 20.3 L* (37-53) % MCV 106.6 H 106.9 H (82-101) fl Plt Count 396 314 (157-399) 10^3/cmm Neut % (Auto) 80.7 69.5 % Neut # (Auto) 21.55 H 18.31 H (1.8-7.7) 10^3/uL BMP 10/22/24 10/23/24 19:40 05:34 Sodium 135 L 135 L Potassium 4.8 4.2 Chloride 102 104 Carbon Dioxide 21 L 20 L BUN 35 H 34 H Creatinine 1.7 H 1.7 H Glucose 310 H 240 H Calcium 9.1 8.1 L Liver Function 10/22/24 Range/Units 19:40 Total Bilirubin 1.9 H (0.15-1.2) mg/dL Direct Bilirubin 0.50 H (0.00-0.30) mg/dL AST 13 (0-40) U/L ALT 19 (0-41) U/L Alkaline Phosphatase 95 (40-130) U/L Albumin 3.9 (3.5-5.2) g/dL Urine 10/23/24 Range/Units 01:34 Urine Color Yellow (Yellow) Urine Appearance Clear (CLEAR) Urine pH 5.0 (5-7) Ur Specific [place] 1.016 (1.005-1.030) Urine Protein 2+ A (Negative) Urine Glucose (UA) 2+ H (Normal) Urine Ketones Negative (Negative) Urine Nitrate Negative (Negative) Urine Bilirubin Negative (Negative) Ur Leukocyte Esterase Negative (Negative) Urine RBC 0-2 (0-2) /hpf Urine WBC 0-5 (0-5) /hpf Blood Bank 10/23/24 06:44 Blood Type A Positive Rho(D) Type Rh positive Antibody Screen Negative Coags 10/22/24 10/23/24 19:40 05:34 PT 14.10 INR 1.02 APTT 35.1 C-Reactive Protein 156.3 H Microbiology 10/22/24 19:42 Blood Culture - Preliminary Blood SPECIMEN COLLECTED 10/22/24 19:40 Blood Culture - Preliminary Blood SPECIMEN COLLECTED Cardiac Studies: Echocardiogram 12/19/23 Echocardiogram Limited Views 05/10/24 Transesophageal Echocardiogram 12/22/23 Sestamibi Stress Test (Cardiology) 03/07/23 Cardiac Event Monitor 01/08/23
--- NOTE | 2024-10-23 10:03 | PC.CHAP ---
Pastoral Care Encounter/Spiritual Assessment Type of Contact [] Declined marine equipment preservation inspector visit [] Patient/Family/Request visit [] Outpatient visit [] Follow-up visit [] Physician referral [] Code/Alert [] Routine visit [] Staff referral [] Actively dying [] Patient sleeping [] Family support [] [] Out of room [] Palliative care [] [X] Receiving care in room [] Pre-surgical visit [] Trauma [] Long length of stay [] ICU visit [] Other: Relational/Emotional Strength [] Patient feels connected with others/family/visitors/staff [] Distress [] Loneliness/isolation [] Abandonment Spirituality of Patient [] Person of [place] [] Attends Rastafarian of their [place] [] Believes in Prayer [] Reads Bible or Church materials [] There are Spiritual issues to be addressed Weatherization Crew Leader Interventions [] Prayer [] Active listening [] Non-anxious presence [] Spiritual/emotional support [] Crisis/trauma care [] Spiritual counseling [] Bereavement support [] Provided bereavement packet [] Provided Bible/devotional materials [] Provided toy/stuffed animal, coloring book to patient or family member [] Provided Communion [] Anointing/[place] [] Salvation [] Completed spiritual assessment [] Other: Impact on Illness or Injury [] Angry [] Fearful [] Anxious [] Often cries [] Exhaustion [] Unable to work [] Unable to attend latter-day [] Unable to walk/stand [] Unable to read [] Unable to drive [] Unable to eat/drink [] Unable to sleep [] Unable to be with family [] Patient intubated [] Other: Summary Time spent with patient
--- NOTE | 2024-10-23 10:19 | PC.NURSE ---
Patient left the for for surgery via stretcher, escorted by HAYDE Maurer at 1005.
--- NOTE | 2024-10-23 11:14 | P.HPUD_ITS ---
Surgery/Procedure H&P Update DATE OF PROCEDURE: October 23, 2024 DATE H&P PERFORMED: 10/22/24 H&P UPDATE INFORMATION: I have reviewed H&P completed within last 30 days, I have examined patient prior to procedure, No changes to prior documentation and H&P is in [facility] EMR on date indicated CHANGES TO PREVIOUS DOCUMENTATION: Hemoglobin 6.3 this morning. Patient underwent transfusion PRBC per hospitalist. PLANNED PROCEDURE: Operation Date: 10/23/24 10:45 Proposed Procedures p Incision And Drainage Left Foot(Left) - Beni Fischer DPM
[2024-10-23] MEDS: BUPivacaine 0.5% INJ 30 mL INJECTION (12:00)
--- NOTE | 2024-10-23 12:40 | P.OP_ITS ---
Operative Report Date of procedure: October 23, 2024 Surgeon: Beni Fischer DPM Procedure: Date of procedure: 10/23/2024 Pre-op diagnosis: Left foot abscess Post-op diagnosis: Left first metatarsophalangeal joint septic arthritis with gouty tophi Post-op findings: Significant gouty tophi surrounding first metatarsophalangeal joint with disruption of capsule and purulence within the first metatarsophalangeal joint Procedure done: Left foot incision and drainage, bone biopsy Implants: None Specimens removed: Cultures aerobic and anaerobic, tissue specimen, bone biopsy Surgeon: Dr. Beni Fischer DPM Editing Computer Publisher: Bella Malik Estimated blood loss: 5 cc Tourniquet time: 49 minutes Complications: None The patient presents with a severe foot infection involving left foot, characterized by erythema, swelling, and drainage. The infection is complicated by underlying conditions, including diabetes, gout, which have contributed to the progression of the infection despite conservative management. Preoperative imaging and laboratory results indicate possible abscess formation, necessitating surgical intervention. The planned procedure is intended to address the infection, debride necrotic tissue, and, if necessary, assess the viability of surrounding structures to prevent further complications. The patient has been NPO since midnight. The history has been reviewed and the history and physical is current. The signed consent was confirmed and placed in the patient chart. Patient imaging has been reviewed and is consistent with the diagnosis. Under mild sedation, the patient was brought into the operating room and placed on the table in the supine position. Patient is receiving antibiotics around the clock on the floor, Therefore, additional antibiotic prophylaxix was not administered. a local field block was performed using 0.5% Marcaine [place]. MAC sedation was then performed by the anesthesiateam. A pneumatic tourniquet was then placed about the left ankle. The operative extremity was then prepped and draped in the usual fashion. After prep, the tourniquet was inflated to 250 mmHg. The following procedure was then performed. Attention was directed to the medial aspect of the left first metatarso phalangeal joint where a full-thickness ulceration was noted. This had active purulent drainage. A 5 cm incision was made overlying the dorsal medial aspect of the first metatarsophalangeal joint. Dissection was carried down through subcutaneous and superficial fascia. No infection was visualized in the subcutaneous tissues. The wound was noted to have compromise of the first metatarsal phalangeal joint capsule. The wound probe directly into the first metatarsophalangeal joint. The capsule was incised using #15 blade. Significant gouty tophi was visualized within the first metatarsophalangeal joint capsule. There was also noted to be purulence within the first metatarsophalangeal joint. Cultures aerobic and anaerobic were obtained and sent to micro for ID and sensitivity. What appeared to be gouty tophi was removed from the joint and sent as a tissue specimen. The first metatarsophalangeal joint was examined and the head of the first metatarsal appeared free from degenerative changes or signs of osteomyelitis. Medial first metatarsal head however showed possible compromise. Rongeur was used to remove a portion of medial first metatarsal head to be sent as bone biopsy. The site was next irrigated with copious amounts sterile saline. After irrigation the site was expressed. No further purulence was visualized. Attention was then directed to closure. Skin was closed with 3-0 Prolene in a combination of horizontal and simple interrupted suture pattern. Incision was then dressed with Xeroform, 4 x 4 gauze, Kerlix, Amadou. The patient tolerated the procedure and anesthesia well and without complication. The patient was transported from the operating room to the recovery room with vital signs stable and vascular status intact to all digits of the left weightbearing as tolerated for transfers only foot. Thepatient was instructed to remain to the operative extremity, to keep surgical dressing clean, dry and intact. The patient will be transferred back to the floor once anesthesia criteria is met. I will continue to round on and follow the patient in the inpatientsetting and provide recommendations to stabilize the patient for discharge.
--- NOTE | 2024-10-23 13:00 | ANE.PACU2 ---
Inpatient post-anesthesia follow up: Airway intact: Yes Vital signs: Temperature 98.6 F Pulse Rate 91 Respiratory Rate 18 Blood Pressure 158/82 Pulse Oximetry 93 Oxygen Delivery Me thod CPAP Oxygen Flow Rate 6 Fraction of Inspir ed Oxygen Hydration adequate: Yes Nausea and vomiting: No Pain level: 1 Mental status: Baseline
[2024-10-23] MEDS: sennosides-docusate Tablet 1 TAB PO (13:16)
[2024-10-23] MEDS: FUROsemide 20 mg Tablet PO (13:16)
[2024-10-23] MEDS: allopurinol 300 mg Tablet PO ×2 (13:16→17:24)
[2024-10-23] MEDS: pantoprazole 40 mg SDV IVP ×2 (13:16→17:24)
[2024-10-23] MEDS: insulin lispro 100 unit/1 mL SUBCUT ×2 (13:41→17:24)
[2024-10-23 13:56] LABS: Glucose Point of Care 204 mg/dL (70-110)
[2024-10-23 14:31] LABS: Hematocrit 22.4 % (37-53)
[2024-10-23 16:41] LABS: Glucose Point of Care 147 mg/dL (70-110)
--- NOTE | 2024-10-23 17:45 | P.PN_ITS ---
Subjective 2 Subjective: Overnight labs and H&P reviewed. Status post left foot I&D with bone biopsy Medications: Reviewed: Yes Vitals/I&O/Wt Last Vital Signs Temp 98.2 F 10/23/24 13:40 Pulse 83 10/23/24 14:00 Resp 16 10/23/24 13:40 BP 129/63 10/23/24 13:40 Pulse Ox 94 10/23/24 13:40 O2 Del Method Room Air 10/23/24 13:40 O2 Flow Rate 6 10/23/24 12:49 10/23/24 10/23/24 10/23/24 06:59 14:59 22:59 Intake Total 2450.000 / 2450.000 450 / 450 Output Total 1300 / 1300 2 / 2 Balance 1150.000 / 1150.000 448 / 448 Weight last 48 hrs Weight 111.64 kg Weight 111.13 kg Physical Exam 2 Narrative: General: No acute distress, AO x3 HEENT: PERRLA, pupils bilaterally equal and reactive, pallors not present Chest: Normal vesicular breath sounds, no added sounds, equal good air entry bilaterally CVS: S1-S2 regular, no murmurs, no tachycardia, no gallops, no rubs Abdomen: Soft, nontender, no organomegaly, bowel sounds present Neuro: No focal deficits, no facial deformity, AO x3, power 5/5 in all limbs Data 10/23/24 14:15 10/23/24 05:34 Micro: Microbiology 10/23/24 12:20 Gram Stain - Final Other Source 10/23/24 12:20 Gram Stain - Final Foot - #1 10/23/24 00:35 Gram Stain - Final Other Source 10/22/24 19:42 Blood Culture - Preliminary Blood SPECIMEN COLLECTED 10/22/24 19:40 Blood Culture - Preliminary Blood SPECIMEN COLLECTED A&P Assessment and plan (1) Open wound of left foot: (2) Diabetic foot ulcer: (3) Cellulitis: (4) Sepsis: (5) Chronic kidney disease: Plan Sepsis Criteria met with tachypnea tachycardia fever leukocytosis Source is left foot cellulitis Purulent cellulitis Copious amount of purulent drainage noted Considering noncompliance with diabetic medications we will keep patient on broad-spectrum antibiotics IV Zosyn and vancomycin Dr. Eller consulted Will keep patient n.p.o. in case he would go for another I&D in the morning I&D done by the ER physician today as well X-rays not showing sign of osteomyelitis Opioids along bowel regimen Considering concern for CHF exacerbation judicious use of septic bolus Type 2 diabetes: Patient has not taken any antihyperglycemic agent hemoglobin A1c is around 6.5, It was around 9 few years ago, patient is trying to control his diabetes with diet and high-protein intake Diastolic CHF mild exacerbation: Will do very low-dose Lasix in the morning No active chest pain Previous echo reviewed No need to repeat echo at this point Chronic kidney disease: No acute exacerbation: Patient is hypertensive optimize antihypertensive regimen N.p.o. for now until evaluated by podiatry in the morning Full code DVT prophylaxis SCDs in case patient requires intervention in the morning Sleep apnea: Uses CPAP at home currently requiring 2 L GI prophylaxis: Protonix Chronic history of gout: Continue maintenance therapy of allopurinol October 23, 2024 Status post Left foot incision and drainage, bone biopsy. Intraoperatively found to have Significant gouty tophi surrounding first metatarsophalangeal joint with disruption of capsule and purulence within the first metatarsophalangeal joint. Cultures are awaited. Continue piperacillin/tazobactam and vancomycin in the interim. 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 Will plan on 6 weeks of iv abx. Blood cx pending PDMP PDMP Reviewed: Not Reviewed Attestations 2 Medical Necessity Statement*: Status post surgical intervention today. Culture awaited. Coding Level of Care Code Acute Code for Chg Fwd Diagnoses Open wound of left foot S91.302A Diabetic foot ulcer E11.621; L97.509 Cellulitis L03.90 Sepsis A41.9 Chronic kidney disease N18.9
[2024-10-23] MEDS: vancomycin 1,500 MG/300 ML PIGGYBACK 200 MG IV (18:10)
[2024-10-23 20:42] LABS: Glucose Point of Care 106 mg/dL (70-110)
[2024-10-24] VITALS (20 sets, daily range): BP systolic 137–174; BP diastolic 63–95; PULSE 88–102; RESP 16–20; TEMP 36.8–38.2; O2SAT 90–96
[2024-10-24 04:56] LABS: Basophils # 0.1 10^3/uL (0.0-0.1); Basophils % 0.4 %; Lymphocytes # 2.6 10^3/uL (0.8-4.8); Lymphocytes % 11.8 %; Mean Corpuscular Hemoglobin 32.2 pg (27-33); Monocytes # 3.5 10^3/uL (0.2-0.9); Monocytes % 15.5 %; Neutrophils # 16.08 10^3/uL (1.8-7.7); Neutrophils % 71.8 %; Nucleated Red Blood Cells % 0 %; Platelet Count 311 10^3/cmm (157-399); Red Blood Count 2.02 10^6/uL (3.85-5.65); White Blood Count 22.39 10^3/uL (3.29-11.43)
[2024-10-24 05:17] LABS: Alanine Aminotransferase 15 U/L (0-41); Albumin Level 3.2 g/dL (3.5-5.2); Alkaline Phosphatase 78 U/L (40-130); Anion Gap 16.1 (5-19); Aspartate Amino Transferase 14 U/L (0-40); Blood Urea Nitrogen 32 mg/dL (6-20); Calcium 8.7 mg/dL (8.5-10.5); Carbon Dioxide 19 mmol/L (22-29); Chloride 105 mmol/L (98-107); Globulin 3.1 g/dL (1.3-4.6); Glomerular Filtration Rate 34.6 mL/min (90-130); Glucose 121 mg/dL (65-115); Osmolality Calculated 290 mOsm/kg (285-295); Potassium 4.1 mmol/L (3.5-5.1); Sodium 136 mmol/L (136-145); Total Bilirubin 2.6 mg/dL (0.15-1.2); Total Protein 6.3 g/dL (6.6-8.7)
[2024-10-24 05:26] LABS: Add RBC Morph Yes; Slide Review Slide Review Perform
[2024-10-24 05:29] LABS: Acanthocytes Trace; Anisocytosis 2+; Hypochromasia 1+; Ovalocytes Trace; Poikilocytosis 1+; RBC Morph Comp No; Target Cells Trace
[2024-10-24 06:50] LABS: Glucose Point of Care 129 mg/dL (70-110)
[2024-10-24] MEDS: FUROsemide 20 mg Tablet PO (08:42)
[2024-10-24] MEDS: pantoprazole DR 40 mg Tablet PO (08:42)
[2024-10-24] MEDS: sennosides-docusate Tablet 1 TAB PO (08:43)
[2024-10-24] MEDS: allopurinol 300 mg Tablet PO ×2 (08:43→17:32)
[2024-10-24] MEDS: piperacillin-tazobactam 3.375 GM in sodium chloride 0.9% (plus) 50 ML IV ×2 (09:27→17:32)
[2024-10-24 10:44] LABS: Hematocrit 22.2 % (37-53)
[2024-10-24 11:01] LABS: Vancomycin Trough 15.2 ug/mL (10-15)
[2024-10-24 11:36] LABS: Glucose Point of Care 139 mg/dL (70-110)
--- NOTE | 2024-10-24 12:27 | P.PN_ITS ---
Subjective 2 Subjective: Patient seen at bedside this morning. Resting comfortably. Day 1 postop left foot incision and drainage with bone biopsy. Patient doing well. Pain is well- controlled. No overnight events. Vitals/I&O/Wt Last Vital Signs Temp 98.6 F 10/24/24 08:46 Pulse 91 10/24/24 09:31 Resp 18 10/24/24 09:31 BP 158/82 10/24/24 09:31 Pulse Ox 93 10/24/24 09:31 O2 Del Method CPAP 10/24/24 08:00 O2 Flow Rate 6 10/23/24 12:49 10/23/24 10/24/24 10/24/24 22:59 06:59 14:59 Intake Total 350 / 800 50 / 850 350 / 350 Output Total 700 / 702 750 / 1452 Balance -350 / 98 -700 / -602 350 / 350 Weight last 48 hrs Weight 250 lb 1.6 oz Weight 246 lb 2 oz Weight 245 lb Physical Exam 2 Narrative: BELOW IS A FOCUSED LOWER EXTREMITY EXAM GENERAL: A&O x 3 VASCULAR: DP/PT pulses palpable 2/4 with CFT intact, <3seconds to distal digits DERMATOLOGICAL: Incision left foot well coapted with sutures intact. No evidence of dehiscence or signs of incisional necrosis. No active drainage. Erythema is improving. MUSCULOSKELETAL: Mild tenderness with palpation of kwesi-incisional area left foot NEUROLOGICAL: Neurological sensation to the affected foot and ankle is present through L4-S1 dermatomes with no hyper/hypoesthesias, negative Tinel or Valleix's sign IMAGING: Three-view x-rays of left foot taken in the emergency department person interpreted by me. These show increase of tissue swelling to the left foot surrounding the first metatarsophalangeal joint region. Medial oblique view shows early [place] sign of medial first metatarsal head. No subcutaneous emphysema noted. Data 10/24/24 10:37 10/24/24 03:41 Micro: Microbiology 10/23/24 12:20 Gram Stain - Final Other Source Wound Culture - Preliminary 10/22/24 19:42 Blood Culture - Preliminary Blood NEGATIVE TO DATE 10/22/24 19:40 Blood Culture - Preliminary Blood NEGATIVE TO DATE 10/23/24 12:20 Gram Stain - Final Foot - #1 10/23/24 00:35 Gram Stain - Final Other Source A&P Assessment and plan (1) Open wound of left foot: (2) Diabetic foot ulcer: (3) Cellulitis: (4) Chronic kidney disease: (5) Sepsis: (6) Type 2 diabetes mellitus: Plan -Status post left foot incision and drainage with bone biopsy DOS: 10/23/2024 -Labs and vitals reviewed -WBC 26--> 22.39 -ESR N/A -VSS -Cultures pending -Abx Vanco/Zosyn -Diet: Okay for diet -No plan for further surgical intervention during this admission. Persistent leukocytosis. Patient is status post splenectomy which is likely contributing to persistent leukocytosis. Erythema much improved to left foot today. Surgical incision well coapted with no signs of dehiscence or necrosis. Septic joint noted intraoperatively. Recommend long-term IV antibiotic therapy via PICC line. -Pain Mgmt: Per primary team -Weight bearing: Weightbearing to left foot for transfers only -Dressings: Surgical dressing changed at bedside today 10/24/2024 consisting of Adaptic, 4 x 4 gauze, Kerlix, Amadou bandage. -Continue current Abx therapy until ID and Sensitivity results -Trend labs -Discharge plan: Recommend long-term IV antibiotic therapy via PICC line. Once PICC line has been placed and final antibiotic recommendations have been made, patient will be okay to discharge home from podiatry standpoint. Patient is to leave surgical dressing clean, dry, intact until follow-up in the outpatient setting. Recommend follow-up within 1 week of discharge. -Podiatry will continue to round on patient daily and provide recommendations PDMP PDMP Reviewed: Not Reviewed Attestations 2 Medical Necessity Statement*: Awaiting PICC line and final antibiotic recommendations prior to discharge for left foot first metatarsophalangeal joint septic joint Coding Level of Care Code Acute Code for [facility] Fwd Diagnoses Open wound of left foot S91.302A Diabetic foot ulcer E11.621; L97.509 Cellulitis L03.90 Chronic kidney disease N18.9 Sepsis A41.9 Type 2 diabetes mellitus E11.9
[2024-10-24] MEDS: VANCOMYCIN ADD-Vantage 1,000 MG in 0.9% NaCl ADD-Vantage 250 ML 250 MG IV (13:41)
[2024-10-24 16:45] LABS: Glucose Point of Care 118 mg/dL (70-110)
--- NOTE | 2024-10-24 17:45 | PM.PN ---
Subjective Subjective: Leukocytosis is improving at 22,000. Tmax 100.8 Fahrenheit this morning. Medications: Reviewed: Yes Vitals/I&O/Wt Last Vital Signs Temp 98.2 F 10/24/24 16:00 Pulse 89 10/24/24 16:00 Resp 18 10/24/24 16:00 BP 174/63 10/24/24 16:00 Pulse Ox 95 10/24/24 16:00 O2 Del Method Room Air 10/24/24 16:00 O2 Flow Rate 6 10/23/24 12:49 10/24/24 10/24/24 10/24/24 06:59 14:59 22:59 Intake Total 50 / 850 400 / 400 250 / 650 Output Total 750 / 1452 Balance -700 / -602 400 / 400 250 / 650 Weight last 48 hrs Weight 113.443 kg Weight 111.64 kg Weight 111.13 kg Physical Exam Narrative: General: No acute distress, AO x3 HEENT: PERRLA, pupils bilaterally equal and reactive, pallors not present Chest: Normal vesicular breath sounds, no added sounds, equal good air entry bilaterally CVS: S1-S2 regular, no murmurs, no tachycardia, no gallops, no rubs Abdomen: Soft, nontender, no organomegaly, bowel sounds present Neuro: No focal deficits, no facial deformity, AO x3, power 5/5 in all limbs Data 10/24/24 10:37 10/24/24 03:41 Micro: Microbiology 10/23/24 12:20 Gram Stain - Final Foot - #1 Tissue Culture - Preliminary Strep pyogenes (grp a) 10/23/24 00:35 Gram Stain - Final Other Source Wound Culture - Preliminary Strep pyogenes (grp a) 10/23/24 12:20 Gram Stain - Final Other Source Wound Culture - Preliminary 10/22/24 19:42 Blood Culture - Preliminary Blood NEGATIVE TO DATE 10/22/24 19:40 Blood Culture - Preliminary Blood NEGATIVE TO DATE A&P Assessment and plan (1) Open wound of left foot: (2) Diabetic foot ulcer: (3) Cellulitis: (4) Sepsis: (5) Chronic kidney disease: Plan Sepsis Criteria met with tachypnea tachycardia fever leukocytosis Source is left foot cellulitis Purulent cellulitis Copious amount of purulent drainage noted Considering noncompliance with diabetic medications we will keep patient on broad-spectrum antibiotics IV Zosyn and vancomycin Dr. Eller consulted Will keep patient n.p.o. in case he would go for another I&D in the morning I&D done by the ER physician today as well X-rays not showing sign of osteomyelitis Opioids along bowel regimen Considering concern for CHF exacerbation judicious use of septic bolus Type 2 diabetes: Patient has not taken any antihyperglycemic agent hemoglobin A1c is around 6.5, It was around 9 few years ago, patient is trying to control his diabetes with diet and high-protein intake Diastolic CHF mild exacerbation: Will do very low-dose Lasix in the morning No active chest pain Previous echo reviewed No need to repeat echo at this point Chronic kidney disease: No acute exacerbation: Patient is hypertensive optimize antihypertensive regimen N.p.o. for now until evaluated by podiatry in the morning Full code DVT prophylaxis SCDs in case patient requires intervention in the morning Sleep apnea: Uses CPAP at home currently requiring 2 L GI prophylaxis: Protonix Chronic history of gout: Continue maintenance therapy of allopurinol October 23, 2024 Status post Left foot incision and drainage, bone biopsy. Intraoperatively found to have Significant gouty tophi surrounding first metatarsophalangeal joint with disruption of capsule and purulence within the first metatarsophalangeal joint. Cultures are awaited. Continue piperacillin/tazobactam and vancomycin in the interim. 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 Will plan on 6 weeks of iv abx. Blood cx pending October 24, 2024 Operating room culture preliminary showing strep pyogenes. Discontinue vancomycin. Continue piperacillin/tazobactam for now.If cultures remain only with group A streptococcus, will likely narrow down to ceftriaxone 2 g IV every 24 hours at the time of discharge. Would anticipate leukocytosis to lag behind clinical improvement due to postsplenectomy state. By review of prior numbers it appears patient's baseline is close to 13-14,000 on his WBC count. Hemoglobin at 7.1 today. Improved from 6.5 yesterday. Further review shows that patient has elevated T. bili fraction at 1.9, direct bilirubin of 0.5. Clinically concerned about hemolytic anemia. Transfuse additional unit today. Recheck T. bili, and indirect bili, LDH and haptoglobin. Start methylprednisolone 40 mg IV every 8 hours. Patient has not been vaccinated postsplenectomy and continues to decline this. States that he is willing to suffer from recurrent sepsis however does not believe in vaccination. He is currently on an autophagy diet and fasting for the same. Creatinine is increased to 2.0 today. Patient has a history of PKD presumably he is referencing polycystic kidney disease. Review of his chart shows patient has previously been anemic with hemoglobin as low as 6.7-8.8. CT of the abdomen and pelvis last performed in September 2024 hide raise concern for a suspicious right renal mass. Given anemia, would be pertinent to rule out any bleeding in the retroperitoneum. Will obtain ultrasound assessment for the same. PDMP PDMP Reviewed: Not Reviewed Attestations Medical Necessity Statement*: continued need for iv abx, renal US, worsening kidney function , iv fluids Coding Level of Care Code Acute Code for [facility] Diagnoses Open wound of left foot S91.302A Diabetic foot ulcer E11.621; L97.509 Cellulitis L03.90 Sepsis A41.9 Chronic kidney disease N18.9
--- NOTE | 2024-10-24 17:58 | USR_ITS ---
PROCEDURE INFORMATION: Exam: US Abdomen; Limited Exam date and time: 10/24/2024 6:29 PM Age: 59 years old Clinical indication: Screening exam; Other: Assess for hemoperitoneum TECHNIQUE: Imaging protocol: Real time ultrasound of the abdomen with image documentation. Limited exam focused on the region of clinical interest. COMPARISON: CT abdomen pelvis w con* [id number] 09/13/2024 8:14 PM FINDINGS: Intraperitoneal space: Limited sonography of the all 4 abdominal quadrants does not demonstrate any free fluid to suggest hemoperitoneum. US/US abdomen limited [id number] IMPRESSION: There is no sonographic evidence of hemoperitoneum.
[2024-10-24] MEDS: sodium chloride 0.9% 100 mL Bag 50 ML IV (20:00)
[2024-10-24 21:56] LABS: Glucose Point of Care 118 mg/dL (70-110)
[2024-10-25] VITALS (8 sets, daily range): BP systolic 156–167; BP diastolic 50–85; PULSE 80–95; RESP 16–18; TEMP 36.7–37.3; O2SAT 91–94
[2024-10-25] MEDS: sodium chloride 0.9% 100 mL Bag 50 ML IV ×2 (00:19→00:21)
[2024-10-25] MEDS: piperacillin-tazobactam 3.375 GM in sodium chloride 0.9% (plus) 50 ML IV ×2 (00:31→12:40)
[2024-10-25] MEDS: morphine 4 mg/mL SDV 1 mL 2 MG IVP ×2 (01:30→05:30)
[2024-10-25 06:01] LABS: Basophils # 0.1 10^3/uL (0.0-0.1); Basophils % 0.5 %; Eosinophils # 0.2 10^3/uL (0.0-0.8); Eosinophils % 1.5 %; Hematocrit 23.9 % (37-53); Lymphocytes # 2.4 10^3/uL (0.8-4.8); Lymphocytes % 16.1 %; Mean Corpuscular HGB Conc 31.8 g/dL (30-55); Mean Corpuscular Hemoglobin 30.4 pg (27-33); Mean Corpuscular Volume 95.6 fl (82-101); Mean Platelet Volume 11.6 fL (7.4-10.4); Monocytes # 2.4 10^3/uL (0.2-0.9); Monocytes % 15.9 %; Neutrophils # 9.87 10^3/uL (1.8-7.7); Neutrophils % 65.5 %; Nucleated Red Blood Cells % 0 %; Platelet Count 347 10^3/cmm (157-399); White Blood Count 15.05 10^3/uL (3.29-11.43)
[2024-10-25 06:20] LABS: Alanine Aminotransferase 16 U/L (0-41); Albumin Level 3.3 g/dL (3.5-5.2); Alkaline Phosphatase 96 U/L (40-130); Anion Gap 16.4 (5-19); Aspartate Amino Transferase 16 U/L (0-40); Blood Urea Nitrogen 32 mg/dL (6-20); Calcium 9.1 mg/dL (8.5-10.5); Carbon Dioxide 20 mmol/L (22-29); Chloride 109 mmol/L (98-107); Globulin 3.4 g/dL (1.3-4.6); Glomerular Filtration Rate 39.1 mL/min (90-130); Glucose 93 mg/dL (65-115); Lactate Dehydrogenase 187 U/L (135-225); Osmolality Calculated 299 mOsm/kg (285-295); Potassium 4.4 mmol/L (3.5-5.1); Sodium 141 mmol/L (136-145); Total Bilirubin 2.2 mg/dL (0.15-1.2); Total Protein 6.7 g/dL (6.6-8.7)
[2024-10-25 06:48] LABS: Glucose Point of Care 91 mg/dL (70-110)
--- NOTE | 2024-10-25 07:30 | XRR_ITS ---
PROCEDURE INFORMATION: Exam: XR Chest Exam date and time: 10/25/2024 7:09 AM Age: 59 years old Clinical indication: Device placement; Picc; Additional info: Post picc insertion, shabnam placing on med-surg 261. Should be ready at 0810 TECHNIQUE: Imaging protocol: Radiologic exam of the chest. Views: 1 view. COMPARISON: CR (CHEST, ) 22/10/2024 23:21 FINDINGS: Tubes, catheters and devices: Right sided PICC is in satisfactory position, with distal tip in the SVC, approximately 3 cm above the SVC/RA junction. Lungs: Mildly increased lung markings, likely secondary to low lung volumes. No consolidation. Pleural spaces: Unremarkable. No pleural effusion. No pneumothorax. Heart/Mediastinum: Stable cardiomediastinal silhouette. Bones/joints: Unremarkable. XR/XR chest 1V portable [id number] IMPRESSION: Low lung volumes versus mild pulmonary congestion.
--- NOTE | 2024-10-25 08:37 | PICC.NOTE ---
Single lumen PICC placed to right basilic vein. Referred to vascular access nurse for PICC placement due to need for IV antibiotics x 6 weeks. Risks and benefits discussed and informed consent obtained from pt. Right arm assessed with right basilic vein measuring 5.0 mm, straight, and apparent best choice for placement. Using sterile technique and MST, right basilic vein accessed x 1 stick. Mid-arm circumference measured 10 cm from right AC 32 cm. Trimmed cath 46 cm with 1 cm external length noted. CXR shows tip in distal SVC, in good position for use per radiologist. Line secured with stat-lock. Insertion site covered with Biopatch and TSM. Report given to bedside nurse, HAYDE Barrett.
[2024-10-25] MEDS: allopurinol 300 mg Tablet PO (08:42)
[2024-10-25] MEDS: pantoprazole DR 40 mg Tablet PO (08:42)
[2024-10-25] MEDS: HYDROcodone-acetaminophen 5-325 mg Tablet 1 TAB PO (08:42)
[2024-10-25] MEDS: sennosides-docusate Tablet 1 TAB PO (08:42)
[2024-10-25 12:21] LABS: Glucose Point of Care 97 mg/dL (70-110)
--- NOTE | 2024-10-25 12:36 | PM.PN ---
Subjective Subjective: Patient seen at bedside this morning. Resting comfortably. Improved leukocytosis. No overnight events. Vitals/I&O/Wt Last Vital Signs Temp 98.1 F 10/25/24 11:45 Pulse 91 10/25/24 11:45 Resp 16 10/25/24 11:45 BP 156/57 10/25/24 11:45 Pulse Ox 91 10/25/24 11:45 O2 Del Method Room Air 10/25/24 11:45 O2 Flow Rate 6 10/23/24 12:49 10/24/24 10/25/24 10/25/24 22:59 06:59 14:59 Intake Total 540 / 940 365 / 1305 480 / 480 Output Total 2750 / 2750 1800 / 1800 Balance -2210 / -1810 365 / -1445 -1320 / -1320 Weight last 48 hrs Weight 247 lb 4.8 oz Weight 250 lb 1.6 oz Physical Exam Narrative: BELOW IS A FOCUSED LOWER EXTREMITY EXAM GENERAL: A&O x 3 VASCULAR: DP/PT pulses palpable 2/4 with CFT intact, <3seconds to distal digits DERMATOLOGICAL: Surgical dressing left clean, dry, intact. No strikethrough noted. MUSCULOSKELETAL: Mild tenderness with palpation of kwesi-incisional area left foot NEUROLOGICAL: Neurological sensation to the affected foot and ankle is present through L4-S1 dermatomes with no hyper/hypoesthesias, negative Tinel or Valleix's sign IMAGING: Three-view x-rays of left foot taken in the emergency department person interpreted by me. These show increase of tissue swelling to the left foot surrounding the first metatarsophalangeal joint region. Medial oblique view shows early Nick sign of medial first metatarsal head. No subcutaneous emphysema noted. Data 10/25/24 05:29 10/25/24 05:29 Micro: Microbiology 10/23/24 12:20 Gram Stain - Final Other Source Wound Culture - Preliminary Strep pyogenes (grp a) 10/23/24 12:20 Gram Stain - Final Foot - #1 Tissue Culture - Preliminary Strep pyogenes (grp a) 10/23/24 00:35 Gram Stain - Final Other Source Wound Culture - Preliminary Strep pyogenes (grp a) A&P Assessment and plan (1) Open wound of left foot: (2) Diabetic foot ulcer: (3) Cellulitis: (4) Chronic kidney disease: (5) Sepsis: (6) Type 2 diabetes mellitus: Plan -Status post left foot incision and drainage with bone biopsy DOS: 10/23/2024 -Labs and vitals reviewed -WBC 26--> 22.39 -ESR N/A -VSS -Cultures pending -Abx Vanco/Zosyn -Diet: Okay for diet -No plan for further surgical intervention during this admission. Persistent leukocytosis. Patient is status post splenectomy which is likely contributing to persistent leukocytosis. Erythema much improved to left foot today. Surgical incision well coapted with no signs of dehiscence or necrosis. Septic joint noted intraoperatively. Recommend long-term IV antibiotic therapy via PICC line. -Pain Mgmt: Per primary team -Weight bearing: Weightbearing to left foot for transfers only -Dressings: Surgical dressing changed at bedside today 10/24/2024 consisting of Adaptic, 4 x 4 gauze, Kerlix, Amadou bandage. -Continue current Abx therapy until ID and Sensitivity results. Culture showing group A strep -Trend labs -Discharge plan: Recommend long-term IV antibiotic therapy via PICC line. Once PICC line has been placed and final antibiotic recommendations have been made, patient will be okay to discharge home from podiatry standpoint. Patient is to leave surgical dressing clean, dry, intact until follow-up in the outpatient setting. Recommend follow-up within 1 week of discharge. -Podiatry will continue to round on patient daily and provide recommendations PDMP PDMP Reviewed: Not Reviewed Attestations Medical Necessity Statement*: See hospitalist note Coding Level of Care Code Acute Code for [facility] Diagnoses Open wound of left foot S91.302A Diabetic foot ulcer E11.621; L97.509 Cellulitis L03.90 Chronic kidney disease N18.9 Sepsis A41.9 Type 2 diabetes mellitus E11.9
[2024-10-25] MEDS: HYDROcodone-acetaminophen 5-325 mg Tablet 2 TAB PO (12:38)
--- NOTE | 2024-10-25 15:00 | PC.NURSE ---
Patient showed how to mix and give and IV push medication over 5 minutes with saline simulation for the antibiotic that patient will be taking at home. Patient is A&ox3. Respirations even and non-labored on room air. Patient verbalized understanding of administration instructions and of discharge instructions. Patient ambulated to his private car with a steady gait.
--- NOTE | 2024-11-05 13:01 | PM.DCS ---
Discharge Providers Date of Admission: 10/22/24 23:31 Date of Discharge: 10/25/2024 Attending Provider at Admission: Philomena Carrero MD Attending Provider at Discharge: Hemal Vicenet Primary Care Provider: Yu Lee APN Diagnoses at Discharge Discharge Diagnosis (1) Open wound of left foot: Status: Resolved (2) Diabetic foot ulcer: Status: Resolved (3) Cellulitis: Status: Resolved (4) Chronic kidney disease: Status: Resolved (5) Sepsis: Status: Resolved (6) Type 2 diabetes mellitus: Status: Resolved Reason for Visit Reason for Visit: Dr Beck Infection in L Foot Hospital Course Hospital Course 59 year old male with history of type 2 diabetes, noncompliant, has not taken antihyperglycemic agents for at least a year trying to manage with high-protein diet, lives alone, does not smoke or drink alcohol, presented to the hospital with chief complaint of worsening of foot pain and chills. Patient is stating that he has been experiencing foot pain for at least 1 month he has been soaking his foot in Epsom salt and will try to cover with dressing to soak the drainage but his symptom got worse and he started experiencing severe rigors/chills that prompted his visit in the ER. He is endorsing subjective fever no active chest pain nausea vomiting or diarrhea.Incision and drainage was done of left foot by the ER physician however patient still has copious amount of purulent drainagePatient is septic received septic bolus along antibiotics. Dr. Fischer consulted by the ER physicianPatient is stating that he has sleep apnea uses CPAP at home, currently is on 2 L saturating well. 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 This prompted transfusion of one unit of packed red blood cells and an order for an abdominal ultrasound to rule out hemoperitoneum due to a recently noted renal mass lesion which there is no sonographic evidence of hemoperitoneum. The patient's leukocytosis showed improvement, with a count of 22,000, and he experienced a maximum temperature of 100.8?F in the morning. Vital signs indicated stable parameters, with a temperature of 98.2?F, pulse rate of 89, respiratory rate of 18, blood pressure of 174/63, and pulse oximetry at 95% on room air. Despite his complex medical history, the physical examination revealed no acute distress, normal vesicular breath sounds, regular heart sounds, and a soft, non-tender abdomen with present bowel sounds. Neurological examination showed no focal deficits, maintaining full strength in all limbs. Microbiological data indicated a preliminary culture from the operating room showing Streptococcus pyogenes, leading to the discontinuation of vancomycin and continuation of piperacillin/tazobactam. If cultures remained consistent with group A streptococcus, ceftriaxone was planned for discharge. The patient's leukocytosis was expected to lag behind clinical improvement due to his postsplenectomy state, with his baseline WBC count close to 13-14,000. Hemoglobin improved from 6.5 to 7.1, with concerns of hemolytic anemia prompting further transfusion and laboratory assessments. The patient expressed a refusal to receive vaccinations post-splenectomy, opting instead for an autophagy diet and fasting. Upon assuming care, the patient was eager to be discharged, with arrangements for home antibiotics and follow-up appointments with urology regarding the renal mass, primary care, and podiatry. He was discharged in stable condition, having agreed to schedule necessary follow-ups. Home IV abx were arraanged prior to discharge as well. Physical Exam Narrative: General: No acute distress, AO x3 HEENT: PERRLA, pupils bilaterally equal and reactive, pallors not present Chest: Normal vesicular breath sounds, no added sounds, equal good air entry bilaterally CVS: S1-S2 regular, no murmurs, no tachycardia, no gallops, no rubs Abdomen: Soft, nontender, no organomegaly, bowel sounds present Neuro: No focal deficits, no facial deformity, AO x3, power 5/5 in all limbs Discharge Data Studies Completed and Pending Completed Studies During Hospitalization Category Date Time Status CXRP [XR chest 1V portable [id number]] Routine Exams 10/25/24 07:30 Completed XR chest 1V portable [id number] Stat Exams 10/22/24 23:06 Completed XR foot LT min 3V* [id number] Stat Exams 10/22/24 23:06 Completed Pathology: Surgical [PTH] Routine Pth 10/23/24 12:36 Completed US abdomen limited [id number] Routine Ultrasound 10/24/24 17:58 Completed Radiology Impressions Foot X-Ray 10/22/24 23:06 IMPRESSION: 1. Degenerative changes without evidence of acute osseous abnormality. 2. Extensive nonspecific medial forefoot soft tissue swelling. Abdomen Ultrasound 10/24/24 17:58 IMPRESSION: There is no sonographic evidence of hemoperitoneum. Chest X-Ray 10/25/24 07:30 IMPRESSION: Low lung volumes versus mild pulmonary congestion. Laboratory Results WBC 15.05 10^3/uL (3.29-11.43) H 10/25/24 05:29 RBC 2.50 10^6/uL (3.85-5.65) L 10/25/24 05:29 Hgb 7.60 g/dL (11.27-16.99) L 10/25/24 05:29 Hct 23.9 % (37-53) L 10/25/24 05:29 MCV 95.6 fl (82-101) 10/25/24 05:29 MCH 30.4 pg (27-33) 10/25/24 05:29 MCHC 31.8 g/dL (30-55) 10/25/24 05:29 RDW 17.0 % (12.1-15.1) H 10/25/24 05:29 Plt Count 347 10^3/cmm (157-399) 10/25/24 05:29 MPV 11.6 fL (7.4-10.4) H 10/25/24 05:29 Neut % (Auto) 65.5 % 10/25/24 05:29 Lymph % (Auto) 16.1 % 10/25/24 05:29 [place] % (Auto) 15.9 % 10/25/24 05:29 Eos % (Auto) 1.5 % 10/25/24 05:29 Baso % (Auto) 0.5 % 10/25/24 05:29 Neut # (Auto) 9.87 10^3/uL (1.8-7.7) H 10/25/24 05:29 Lymph # (Auto) 2.4 10^3/uL (0.8-4.8) 10/25/24 05:29 [place] # (Auto) 2.4 10^3/uL (0.2-0.9) H 10/25/24 05:29 Eos # (Auto) 0.2 10^3/uL (0.0-0.8) 10/25/24 05:29 Baso # (Auto) 0.1 10^3/uL (0.0-0.1) 10/25/24 05:29 Nucleated RBC % (auto) 0 % 10/25/24 05:29 Nucleated RBCs # 0.0 /100WBC 10/25/24 05:29 Hypochromasia 1+ H 10/24/24 03:41 Poikilocytosis 1+ H 10/24/24 03:41 Anisocytosis 2+ H 10/24/24 03:41 Target Cells Trace 10/24/24 03:41 Ovalocytes Trace 10/24/24 03:41 Acanthocytes (Spur) Trace 10/24/24 03:41 Haptoglobin 249.0 mg/L (30-200) H 10/25/24 05:29 Haptoglobin Cancelled 10/25/24 05:29 PT 14.10 SECONDS (12.1-14.9) 10/22/24 19:40 INR 1.02 (0.8-1.2) 10/22/24 19:40 APTT 35.1 SECONDS (23.9-36.7) 10/22/24 19:40 Sodium 141 mmol/L (136-145) 10/25/24 05:29 Potassium 4.4 mmol/L (3.5-5.1) 10/25/24 05:29 Chloride 109 mmol/L (98-107) H 10/25/24 05:29 Carbon Dioxide 20 mmol/L (22-29) L 10/25/24 05:29 Anion Gap 16.4 (5-19) 10/25/24 05:29 BUN 32 mg/dL (6-20) H 10/25/24 05:29 Creatinine 1.8 mg/dL (0.7-1.2) H 10/25/24 05:29 GFR Calculation 39.1 mL/min (90-130) L 10/25/24 05:29 Glucose 93 mg/dL (65-115) 10/25/24 05:29 POC Glucose 97 mg/dL (70-110) 10/25/24 12:19 Estimat Average Glucose 140 10/22/24 19:40 Hemoglobin A1c 6.5 % (4.0-6.0) H 10/22/24 19:40 Calculated Osmolality 299 mOsm/kg (285-295) H 10/25/24 05:29 Lactic Acid 1.7 mmol/L (0.5-2.2) 10/22/24 19:40 Calcium 9.1 mg/dL (8.5-10.5) 10/25/24 05:29 Phosphorus 2.6 mg/dL (2.5-4.5) 10/22/24 19:40 Magnesium 1.7 mg/dL (1.7-2.3) 10/23/24 05:34 Total Bilirubin 2.2 mg/dL (0.15-1.2) H 10/25/24 05:29 Direct Bilirubin 1.20 mg/dL (0.00-0.30) H 10/25/24 05:29 Direct Bilirubin Cancelled 10/25/24 05:29 AST 16 U/L (0-40) 10/25/24 05:29 ALT 16 U/L (0-41) 10/25/24 05:29 Alkaline Phosphatase 96 U/L (40-130) 10/25/24 05:29 Lactate Dehydrogenase 187 U/L (135-225) 10/25/24 05:29 C-Reactive Protein 156.3 mg/L (0.0-4.9) H 10/23/24 05:34 Total Protein 6.7 g/dL (6.6-8.7) 10/25/24 05:29 Albumin 3.3 g/dL (3.5-5.2) L 10/25/24 05:29 Globulin 3.4 g/dL (1.3-4.6) 10/25/24 05:29 Procalcitonin 0.63 ng/mL (0-0.5) H 10/22/24 19:40 Urine Color Yellow (Yellow) 10/23/24 01:34 Urine Appearance Clear (CLEAR) 10/23/24 01:34 Urine pH 5.0 (5-7) 10/23/24 01:34 Ur Specific [place] 1.016 (1.005-1.030) 10/23/24 01:34 Urine Protein 2+ (Negative) A 10/23/24 01:34 Urine Glucose (UA) 2+ (Normal) H 10/23/24 01:34 Urine Ketones Negative (Negative) 10/23/24 01:34 Urine Blood Negative (Negative) 10/23/24 01:34 Urine Nitrate Negative (Negative) 10/23/24 01:34 Urine Bilirubin Negative (Negative) 10/23/24 01:34 Urine Urobilinogen 1.0 mg/dL (Negative) 10/23/24 01:34 Ur Leukocyte Esterase Negative (Negative) 10/23/24 01:34 Urine RBC 0-2 /hpf (0-2) 10/23/24 01:34 Urine WBC 0-5 /hpf (0-5) 10/23/24 01:34 Ur Squamous Epith Cells 0-5 /hpf (0-5) 10/23/24 01:34 Amorphous Sediment 1+ /hpf 10/23/24 01:34 Urine Bacteria None seen /hpf (NONE) 10/23/24 01:34 Hyaline Casts 8.67 /lpf 10/23/24 01:34 Vancomycin Trough 15.2 ug/mL (10-15) H 10/24/24 10:37 Blood Type A Positive 10/23/24 06:44 Rho(D) Type Rh positive 10/23/24 06:44 Antibody Screen Negative 10/23/24 06:44 Crossmatch See Detail 10/23/24 06:44 Vitals Last Vital Signs Temp 98.2 F 10/25/24 15:34 Pulse 80 10/25/24 15:34 Resp 18 10/25/24 15:34 BP 160/50 10/25/24 15:34 Pulse Ox 94 10/25/24 15:34 O2 Del Method Room Air 10/25/24 11:45 O2 Flow Rate 6 10/23/24 12:49 Discharge Plan Discharge Patient Disposition: Home Condition: Stable Prescriptions: Continued allopurinol 300 mg tablet 300 mg PO BID Qty: 1 0RF Discontinued naproxen [Naprosyn] 500 mg tablet 500 mg PO BID PRN (Reason: pain) Qty: 20 0RF Discharge Orders: Discharge Order (Routine); Ordered 10/25/24 Ordered By: Hemal Vicente Other Ambulatory Orders: Miscellaneous Procedure (Order) Location: None Selected Ordered By: Hemal Vicente Referrals: [facility] [Outside] (We have notified the [facility] of the need for a follow-up appointment to be scheduled for you PICC line dressing change and labs on Next Friday11/01/24 . If you have not heard from them within the next 2 business days, please call them directly. ) [place] [Outside] Yu Lee APN [Primary Care Provider] - 11/02/24 11:00 am Discharge Diet: Advance as tolerated Discharge Activity: Increase activity as tolerated Patient Instructions: Type 2 Diabetes, Foot Care for People with Diabetes (DC), Sepsis (DC), Acute Wound Care (DC), Foot Ulcers in a Person with Diabetes (DC), Opioid Safety, Post Anesthesia Care Discharge Attestations Time Spent in Discharge Care*: greater than 30 min Quality Metrics Clinical Quality Measures [ No reported AMI, CVA or VTE this stay] Coding Level of Care Code Acute Code for Chg Fwd Diagnoses Open wound of left foot S91.302A Diabetic foot ulcer E11.621; L97.509 Cellulitis L03.90 Chronic kidney disease N18.9 Sepsis A41.9 Type 2 diabetes mellitus E11.9
== END 2024-10-25 15:10 | disposition home or self-care (01) | DRG 853 ==
LOC: ER 23:48 → MEDSURG 23:54
PROVIDERS: Podiatrist Foot & Ankle Surgery; Student in an Organized Health Care Education/Training Program; Admitting Provider Internal Medicine; Emergency Provider Emergency Medicine; PCP Nurse Practitioner Family; Visit Provider Hospitalist
PROC: 0QBR0ZZ Excision of Left Toe Phalanx, Open Approach (ICD-10-PCS; principal; 2024-10-23 10:35)
DX: A41.9 Sepsis, unspecified organism (principal); I50.31 Acute diastolic (congestive) heart failure; M00.272 Other streptococcal arthritis, left ankle and foot; L97.429 Non-pressure chronic ulcer of left heel and midfoot with unspecified severity; L03.116 Cellulitis of left lower limb; E70.1 Other hyperphenylalaninemias; I13.0 Hypertensive heart and chronic kidney disease with heart failure and stage 1 through stage 4 chronic kidney disease, or unspecified chronic kidney disease; D58.9 Hereditary hemolytic anemia, unspecified; B95.0 Streptococcus, group A, as the cause of diseases classified elsewhere; M1A.9XX1 Chronic gout, unspecified, with tophus (tophi); E11.621 Type 2 diabetes mellitus with foot ulcer; E11.65 Type 2 diabetes mellitus with hyperglycemia; T50.906A Underdosing of unspecified drugs, medicaments and biological substances, initial encounter; Z91.128 Patient's intentional underdosing of medication regimen for other reason; G47.33 Obstructive sleep apnea (adult) (pediatric); Z99.89 Dependence on other enabling machines and devices; D63.1 Anemia in chronic kidney disease; N28.89 Other specified disorders of kidney and ureter; E11.22 Type 2 diabetes mellitus with diabetic chronic kidney disease; N18.9 Chronic kidney disease, unspecified; E66.01 Morbid (severe) obesity due to excess calories; Z68.34 Body mass index [BMI] 34.0-34.9, adult; Z90.81 Acquired absence of spleen; Z96.642 Presence of left artificial hip joint; E78.5 Hyperlipidemia, unspecified; F98.8 Other specified behavioral and emotional disorders with onset usually occurring in childhood and adolescence; Z86.73 Personal history of transient ischemic attack (TIA), and cerebral infarction without residual deficits; L57.0 Actinic keratosis; N52.9 Male erectile dysfunction, unspecified; I48.91 Unspecified atrial fibrillation
CPT/HCPCS: 36415; 36416; 36430; 36573; 71045; 73630; 76705; 80048; 80053; 80076; 80202; 81001; 82248; 82962; 83010; 83036; 83605; 83615; 83735; 84100; 84145; 85014; 85018; 85025; 85610; 85730; 86140; 86850; 86900; 86902; 86920; 87040; 87070; 87075; 87077; 87176; 87186; 87205; 88307; 88311; 94660; 96365; 96366; 96367; 96372; 99285; J0360; J1100; J1815; J2270; J2405; J2470; J2543; J2704; J3010; J3370; J3372; J3490; J7030; J7050; J9999; P9016

== ENCOUNTER 2024-11-01 09:35 | Oncology outpatient (recurring) (ONCR) | payer OTHER, SELFPAY ==
[2024-10-28] MEDS: cefTRIAXone 2,000 mg SDV 2000 MG IVP (15:30)
[2024-11-01 10:09] VITALS: BP 118/74; PULSE 64; RESP 16; TEMP 36.8
[2024-11-01 10:27] LABS: Basophils # 0.1 10^3/uL (0.0-0.1); Basophils % 0.6 %; Eosinophils # 0.1 10^3/uL (0.0-0.8); Eosinophils % 0.6 %; Hematocrit 29.7 % (37-53); Lymphocytes # 2.1 10^3/uL (0.8-4.8); Lymphocytes % 12.2 %; Mean Corpuscular HGB Conc 31.3 g/dL (30-55); Mean Corpuscular Hemoglobin 30.6 pg (27-33); Mean Corpuscular Volume 97.7 fl (82-101); Mean Platelet Volume 11.5 fL (7.4-10.4); Monocytes # 1.2 10^3/uL (0.2-0.9); Monocytes % 7.3 %; Neutrophils # 12.89 10^3/uL (1.8-7.7); Neutrophils % 76.3 %; Nucleated Red Blood Cells % 0.2 %; Platelet Count 655 10^3/cmm (157-399); Red Blood Count 3.04 10^6/uL (3.85-5.65); Red Cell Distribution Width 15.7 % (12.1-15.1); White Blood Count 16.89 10^3/uL (3.29-11.43)
[2024-11-01 10:42] LABS: Alanine Aminotransferase 23 U/L (0-41); Albumin Level 3.6 g/dL (3.5-5.2); Alkaline Phosphatase 96 U/L (40-130); Aspartate Amino Transferase 18 U/L (0-40); Globulin 3.6 g/dL (1.3-4.6); Glomerular Filtration Rate 48.2 mL/min (90-130); Total Bilirubin 0.9 mg/dL (0.15-1.2); Total Protein 7.2 g/dL (6.6-8.7)
== END 2024-11-01 23:59 | disposition home or self-care (01) ==
PROVIDERS: Student in an Organized Health Care Education/Training Program; PCP Nurse Practitioner Family; Visit Provider Internal Medicine Medical Oncology
DX: Z53.9 Procedure and treatment not carried out, unspecified reason; A41.9 Sepsis, unspecified organism
CPT/HCPCS: 36592; 80076; 82565; 85025; 86140; 96375; J0696

== ENCOUNTER 2024-11-29 13:30 | Oncology outpatient (recurring) (ONCR) | payer OTHER, SELFPAY ==
[2024-11-08 15:21] LABS: Basophils # 0.1 10^3/uL (0.0-0.1); Basophils % 0.5 %; Eosinophils % 0.2 %; Hematocrit 28.5 % (37-53); Lymphocytes # 2.1 10^3/uL (0.8-4.8); Lymphocytes % 12.8 %; Mean Corpuscular HGB Conc 31.2 g/dL (30-55); Mean Corpuscular Hemoglobin 31.7 pg (27-33); Mean Corpuscular Volume 101.4 fl (82-101); Mean Platelet Volume 11.3 fL (7.4-10.4); Monocytes # 0.9 10^3/uL (0.2-0.9); Monocytes % 5.6 %; Neutrophils # 12.92 10^3/uL (1.8-7.7); Neutrophils % 78.1 %; Nucleated Red Blood Cells % 0.2 %; Platelet Count 641 10^3/cmm (157-399); Red Blood Count 2.81 10^6/uL (3.85-5.65); Red Cell Distribution Width 15.6 % (12.1-15.1); White Blood Count 16.56 10^3/uL (3.29-11.43)
[2024-11-08 15:36] LABS: Alanine Aminotransferase 23 U/L (0-41); Albumin Level 3.8 g/dL (3.5-5.2); Alkaline Phosphatase 105 U/L (40-130); Aspartate Amino Transferase 18 U/L (0-40); Globulin 3.2 g/dL (1.3-4.6); Glomerular Filtration Rate 56.9 mL/min (90-130); Total Bilirubin 0.7 mg/dL (0.15-1.2)
[2024-11-15 15:26] LABS: Basophils # 0.1 10^3/uL (0.0-0.1); Basophils % 0.9 %; Eosinophils # 0.3 10^3/uL (0.0-0.8); Hematocrit 27.3 % (37-53); Lymphocytes # 3.2 10^3/uL (0.8-4.8); Mean Corpuscular HGB Conc 31.5 g/dL (30-55); Mean Corpuscular Volume 101.5 fl (82-101); Mean Platelet Volume 11.8 fL (7.4-10.4); Monocytes # 1.8 10^3/uL (0.2-0.9); Monocytes % 11.3 %; Neutrophils # 10.11 10^3/uL (1.8-7.7); Neutrophils % 64.2 %; Nucleated Red Blood Cells # 0.1 /100WBC; Nucleated Red Blood Cells % 0.8 %; Platelet Count 424 10^3/cmm (157-399); Red Blood Count 2.69 10^6/uL (3.85-5.65); Red Cell Distribution Width 17.1 % (12.1-15.1); White Blood Count 15.73 10^3/uL (3.29-11.43)
[2024-11-15 15:42] LABS: Alanine Aminotransferase 26 U/L (0-41); Alkaline Phosphatase 101 U/L (40-130); C Reactive Protein 10.3 mg/L (0.0-4.9); Glomerular Filtration Rate 48.2 mL/min (90-130); Total Bilirubin 0.9 mg/dL (0.15-1.2)
[2024-11-15 15:57] LABS: Aspartate Amino Transferase 28 U/L (0-40)
[2024-11-22 13:32] LABS: Basophils # 0.1 10^3/uL (0.0-0.1); Basophils % 0.8 %; Eosinophils # 0.3 10^3/uL (0.0-0.8); Eosinophils % 2.4 %; Hematocrit 27.6 % (37-53); Lymphocytes # 2.6 10^3/uL (0.8-4.8); Lymphocytes % 20.4 %; Mean Corpuscular HGB Conc 31.9 g/dL (30-55); Mean Corpuscular Hemoglobin 32.2 pg (27-33); Mean Corpuscular Volume 101.1 fl (82-101); Mean Platelet Volume 11.4 fL (7.4-10.4); Monocytes # 1.5 10^3/uL (0.2-0.9); Monocytes % 11.2 %; Neutrophils # 8.32 10^3/uL (1.8-7.7); Neutrophils % 64.5 %; Nucleated Red Blood Cells # 0.1 /100WBC; Nucleated Red Blood Cells % 0.5 %; Platelet Count 373 10^3/cmm (157-399); Red Blood Count 2.73 10^6/uL (3.85-5.65); Red Cell Distribution Width 17.5 % (12.1-15.1)
[2024-11-22 13:47] LABS: Alanine Aminotransferase 24 U/L (0-41); Albumin Level 3.9 g/dL (3.5-5.2); Alkaline Phosphatase 84 U/L (40-130); Aspartate Amino Transferase 19 U/L (0-40); C Reactive Protein 12.2 mg/L (0.0-4.9); Glomerular Filtration Rate 56.9 mL/min (90-130); Total Protein 6.9 g/dL (6.6-8.7)
== END 2024-12-01 23:59 | disposition home or self-care (01) ==
PROVIDERS: Hospitalist; Student in an Organized Health Care Education/Training Program; PCP Nurse Practitioner Family; Visit Provider Internal Medicine Medical Oncology
DX: Z53.9 Procedure and treatment not carried out, unspecified reason; A41.9 Sepsis, unspecified organism; Z45.2 Encounter for adjustment and management of vascular access device
CPT/HCPCS: 36592; 80076; 82565; 85025; 86140

== ENCOUNTER 2024-12-29 12:30 | Oncology outpatient (recurring) (ONCR) | payer OTHER, SELFPAY ==
[2024-12-06 15:29] LABS: Basophils # 0.1 10^3/uL (0.0-0.1); Basophils % 0.7 %; Eosinophils # 0.2 10^3/uL (0.0-0.8); Eosinophils % 1.1 %; Lymphocytes # 3.5 10^3/uL (0.8-4.8); Lymphocytes % 20.1 %; Mean Corpuscular HGB Conc 31.7 g/dL (30-55); Mean Corpuscular Hemoglobin 32.6 pg (27-33); Mean Corpuscular Volume 102.8 fl (82-101); Mean Platelet Volume 11.8 fL (7.4-10.4); Monocytes # 1.9 10^3/uL (0.2-0.9); Monocytes % 10.8 %; Neutrophils # 11.32 10^3/uL (1.8-7.7); Neutrophils % 65.8 %; Nucleated Red Blood Cells # 0.2 /100WBC; Nucleated Red Blood Cells % 1.2 %; Platelet Count 416 10^3/cmm (157-399); Red Blood Count 2.82 10^6/uL (3.85-5.65); Red Cell Distribution Width 16.9 % (12.1-15.1); White Blood Count 17.21 10^3/uL (3.29-11.43)
[2024-12-06 16:07] LABS: Alanine Aminotransferase 20 U/L (0-41); Albumin Level 3.8 g/dL (3.5-5.2); Alkaline Phosphatase 88 U/L (40-130); Aspartate Amino Transferase 19 U/L (0-40); C Reactive Protein 6.7 mg/L (0.0-4.9); Globulin 2.9 g/dL (1.3-4.6); Glomerular Filtration Rate 52.2 mL/min (90-130); Total Bilirubin 0.9 mg/dL (0.15-1.2); Total Protein 6.7 g/dL (6.6-8.7)
--- NOTE | 2024-12-13 14:39 | PICC.NOTE ---
Dr. Fischer contacted this vascular access nurse to remove PICC. Vascular access nurse to podiatry clinic to remove PICC. Line removed without difficutlty with 46 cm length noted. Tip intact. Pressure held until hemostasis obtained. Site covered with tegaderm. Pt educated to leave in place for 24 hours and to call for any signs and symptoms of infection including redness, drainage, or swelling. Verbalized understanding.
== END 2025-01-01 23:59 | disposition home or self-care (01) ==
PROVIDERS: Student in an Organized Health Care Education/Training Program; PCP Nurse Practitioner Family; Visit Provider Internal Medicine Medical Oncology
DX: Z53.9 Procedure and treatment not carried out, unspecified reason (principal)
CPT/HCPCS: 36592; 80076; 82565; 85025; 86140

== ENCOUNTER 2025-01-03 13:07 | Outpatient (CLI) | payer OTHER, SELFPAY ==
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
== END 2025-01-03 13:08 | disposition home or self-care (01) ==
PROVIDERS: PCP Nurse Practitioner Family; Visit Provider Specialist
DX: Z86.73 Personal history of transient ischemic attack (TIA), and cerebral infarction without residual deficits (principal); H53.8 Other visual disturbances; R93.0 Abnormal findings on diagnostic imaging of skull and head, not elsewhere classified; I63.9 Cerebral infarction, unspecified; J34.89 Other specified disorders of nose and nasal sinuses
CPT/HCPCS: 70551

== ENCOUNTER 2025-04-30 05:47 | Inpatient (IN) | payer OTHER, SELFPAY ==
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
--- OUTSIDE RECORDS SUMMARY | 2024-10-22 12:00 | XMS_ITS ---
Author Organization [facility] Address [address] [place] [address] Care Team Providers Care Clinical Information Systems Director Name Role Phone Yu Lee Primary Care Provider ZE Gamez Unavailable [phone] KAT MUELLER [phone] REASON FOR VISIT [address] - OB per Mary Encounters Encounter Location Date Provider Diagnosis [facility] [address] [facility] [place] [address] 10/22/2024 KAT MUELLER Plan Of Treatment No Information Progress Notes * Ernie GARCIA EDOB: [birth year] (59 yo M)Acc No.[id number]:10/22/2024 Progress Notes Patient: Ernie ANAYA Provider: Rebeca Mueller MD :1965 A ge:59 Y S ex:Male Date:10/22/2024 Address:[address] [id number] Pcp:Yu Lee Subjective: * Chief Complaints: * 1 . [address] - OB per Mary. * Medical History: Objective: * Vitals: Assessment: Plan: * Treatment: * Billing Information: * Visit Code: * Procedure Codes: * Electronic signature of EMMANUEL MUELLER MD on 04/30/2025 at 05:53 AM CDT Sign off status: Pending * Provider: Rebeca Mueller MD Date: 0 10/22/2024 Generated for Sasha donaldson/Elvin/Christian on: 0 04/30/2025 05:53 AM CDT
--- OUTSIDE RECORDS SUMMARY | 2024-11-02 06:00 | XMS_ITS ---
Author Organization [facility] Address [address] [place] [address] Care Team Providers Care Developer Advisor Name Role Phone Yu Lee Primary Care Provider [phone] YU LEE Unavailable Unavailable REASON FOR VISIT HFU OZH discharge 10/25 IND Left foot Encounters Encounter Location Date Provider Diagnosis [facility] Office [address] [place] [phone] 11/02/2024 Yu Lee Plan Of Treatment No Information Progress Notes * GARCIAErnieDOB: 7 (59 yo M)Acc No.[id number]:11/02/2024 Patient: Ernie Lechuga Provider: Brenda Lee APRN :1965 A ge:59 Y S ex:Male Date:11/02/2024 Address:[address] [id number] Subjective: * Chief Complaints: * H FU OZH discharge 10/25 IND Left foot Billing Information: * Procedure Codes: * Electronic signature of Gabrielle Lee APN on 04/30/2025 at 05:53 AM CDT Sign off status: Pending * Provider: Brenda Lee APRN Date: 11/02/2024 Generated for Sasha donaldson/Elvin/Haldeyitting on: 0 04/30/2025 05:53 AM CDT
[2025-04-30] VITALS (46 sets, daily range): BP systolic 167–237; BP diastolic 83–113; PULSE 61–121; RESP 10–37; TEMP 36.2–36.9; O2SAT 89–100; BMI 35.5; BMI 34.7
--- NOTE | 2025-04-30 05:49 | ECG_ITS ---
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
--- NOTE | 2025-04-30 05:50 | W.ED.CHESTPA ---
HPI - Chest Pain General: Chief Complaint: Chest Pain Stated Complaint: chest pain Time Seen by Provider: 04/30/25 05:48 History of Present Illness: 59-year-old man who says he has no known medical problems and takes no medications who presents to the emergency room with chest pain and shortness of breath. He has some edema in his legs. When I ask him about that he says it just comes and goes he does not really know anything about it. He has pretty severe orthopnea at this time. Needs to be sitting up or he becomes very short of breath. He received nitro, aspirin and morphine on the ambulance and these did improve his chest pain. No known fevers. No altered mental status. No focal motor deficits. No abdominal pain. No nausea or vomiting. Related Data Previous Rx's ?Medication ?Instructions ?Recorded allopurinol 300 mg tablet 300 mg PO BID #1 tab 05/22/24 ketorolac 10 mg tablet 10 mg PO Q8H PRN pain #10 tabs 04/28/25 Allergies Allergy/AdvReac Type Severity Reaction Status Date / Time Calcium Channel Blocking Allergy Unknown Verified 04/28/25 14:51 Agent Dilt Review of Systems Narrative: Constitutional symptoms: Negative except as documented in HPI. Skin symptoms: Negative except as documented in HPI. Eye symptoms: Negative except as documented in HPI. ENMT symptoms: Negative except as documented in HPI. Respiratory symptoms: Negative except as documented in HPI. Cardiovascular symptoms: Negative except as documented in HPI. Gastrointestinal symptoms: Negative except as documented in HPI. Genitourinary symptoms: Negative except as documented in HPI. Musculoskeletal symptoms: Negative except as documented in HPI. Neurologic symptoms: Negative except as documented in HPI. Psychiatric symptoms: Negative except as documented in HPI. Endocrine symptoms: Negative except as documented in HPI. [facility] ED PFSH: Medical History (Updated 04/30/25 @ 09:10 by Rosie Angulo MD) Obstructive sleep apnea Attention deficit disorder Type 2 diabetes mellitus Sepsis Erectile disorder due to medical condition in male Cardiac left ventricular ejection fraction greater than or equal to 40 percent Actinic keratosis Seborrheic keratosis Pyruvate kinase (PK) deficiency anemia On continuous oral anticoagulation Recurrent cerebrovascular accidents (CVAs) Atrial fibrillation Atrial flutter Acute kidney injury Macrocytic anemia Leukocytosis Febrile Leg pain, left Tick bite Type 2 diabetes mellitus Basilar artery stenosis Vertebrobasilar ischemia Hyperlipidemia Gout Hx of ischemic vertebrobasilar artery brainstem stroke (2012) Hypertension Surgical History History of colonoscopy (2014) History of bone marrow biopsy (01/07/14) Bone marrow aspiration and biopsy at [facility] H/O knee surgery Left knee cap repair - Elsie GarciafieldJAVON - Dr. 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 Daughter Anesthesia complication Mother Cancer Lung Other Diabetes Hyperlipidemia Hypertension Stroke Denies family history of CAD (coronary artery disease) Clotting disorder Dementia Psychiatric illness Chronic kidney disease (CKD) Suicide Bleeding disorder Lung disease Social History Smoking and tobacco/nicotine status: never used tobacco/nicotine Alcohol intake: never Substance/Drug Use: never service: Yes Physical Exam Narrative: EXAM NARRATIVE: General: Alert, no acute distress. Skin: Warm, dry. Head: Normocephalic, atraumatic. Neck: Supple, trachea midline. Eye: Extraocular movements are intact. Ears, nose, mouth and throat: mucosa moist. Cardiovascular: Regular, tachycardic, normal peripheral perfusion. Bilateral 2+ tibial edema Respiratory: Breath sounds coarse, tachypneic, some scattered wheeze Gastrointestinal: Soft, Nontender, Non distended Musculoskeletal: Normal ROM, no deformity. Neurological: Alert and oriented, No focal neurological deficit observed. Psychiatric: Cooperative, appropriate mood & affect. Course Vital Signs: Vital signs: Vital Signs Temperature 98.5 F 04/30/25 05:56 Pulse Rate 92 04/30/25 08:46 Respiratory Rate 17 04/30/25 08:46 Blood Pressure 167/83 04/30/25 07:15 Pulse Oximetry 93 04/30/25 08:46 Oxygen Delivery Me thod Nasal Cannula 04/30/25 08:46 Oxygen Flow Rate 3 04/30/25 08:46 Fraction of Inspir ed Oxygen 40 04/30/25 07:53 MDM - Chest Pain Medical Decision Making Differential diagnosis for patient with chest pain and shortness of breath includes but is not limited to and based on the above HPI, review of systems and physical exam: Congestive heart failure. Pulmonary embolism. Pneumonia. unstable angina. angina. Acute coronary syndrome / AR. Pulmonary embolism. Costochondritis / musculoskeletal. Pleurisy. Pericarditis. Esophageal spasm. Pancreatis. Cholecystitis. Orders placed to evaluate differential diagnosis based on the above differential, HPI and physical exam EKG: Time 5:53 AM. Rate 113. Sinus tachycardia, nonspecific T wave abnormality, no ectopy, normal ND & QRS intervals, This was reviewed and interpreted by myself the ER physician at 5:59 AM Repeat EKG: Time 8:07 AM. Rate 90. Normal sinus rhythm, nonspecific T wave abnormality, no ectopy, normal ND & QRS intervals, This was reviewed and interpreted by myself the ER physician at 8:11 AM. Rate has decreased by over 20 bpm. AB.20/63/135 on a nonrebreather. O2 sat is greater 99%. Chest x-ray: Concern for mild developing infiltrates. This was reviewed and interpreted by myself the emergency room physician. I also reviewed the radiology report. Lab Review: Laboratory results were reviewed and interpreted by myself the emergency room physician. Leukocytosis with a white count of 25,000. Anemia with a hemoglobin of 7.9. BUN and creatinine are above his baseline at 42 and 2.1 today. Glucose is elevated at 386. Ketones were negative however. Awaiting lactic acid CT of the chest abdomen pelvis without contrast: Patient would not allow for a CTA. Multifocal pneumonia. Possible mass like lesions in the lungs. There is also a cystic appearing structure in the kidney. This has been there in the past. Ultrasound was done to evaluate. This was reviewed and interpreted by myself the emergency room physician. I also reviewed the radiology report. The mass in the kidney appears the same size as it was on a CT done several months ago. I reviewed the patient's medical record. Patient says he takes no meds and initially told me he has no medical problems. However looking back in the chart he has chronic anemia and was following with Dr. Souza and oncology for this. Also looking neurology note he states that he has obstructive sleep apnea, diabetes, ADD, pyruvate kinase deficiency anemia, TIAs in the past. Also looking back he has chronic kidney disease. Reexamination: D-dimer was positive at 1.5. This may very well be related to pneumonia and hypoxemia but patient absolutely refused to have a contrasted CT scan. Consultation: I spoke with Dr. Griffith who is on-call for the hospitalist service who agrees to admission. Assessment and plan: Hypoxemic respiratory failure Hypercapnic respiratory failure Pneumonia Sepsis Malignant hypertension Chronic anemia Acute on chronic renal insufficiency Elevated troponin - 250 cc normal saline bolus. I still have concerns for volume overload and the patient remains hypertensive so I have not given a full septic bolus. -Broad-spectrum antibiotics were administered. Meropenem and Zyvox. -Sepsis quality measures. -Lactic acid with a reflex was ordered. -Blood cultures were ordered. These were ordered later. Initially the patient appeared with swelling, shortness of breath and chest pain with malignant hypertension and I expected this to be a cardiac event/congestive heart failure. After the CT read came back I became concerned for sepsis and so blood cultures were ordered at that time ?I reevaluated the patient's volume status after sepsis fluids were given. ?Starting heparin drip. Both for non-STEMI and secondary to concern for elevated D-dimer with inability to do a CTA. ?Patient was placed on BiPAP. He tolerated this for over an hour but is no longer tolerating it and has taken it off. -Blood pressure has been a bit elevated. I have not treated his I do have some concern for sepsis and if at some point this becomes worse treating blood pressure might make things worse. -I discussed the patient with the hospitalist on-call who is admitting the patient. - Discussed findings and plan with patient. Answered any questions. - All laboratory values were reviewed and interpreted personally by myself, the ER physician - All imaging was reviewed and interpreted personally by myself, the ER physician. - Evaluation and treatment of this problem were appropriate in the emergency setting Critical Care: -I spent a total of >35 minutes of critical care time managing the patient, independent of any other practitioner. -The time involved in the performance of separately reportable procedures was not counted towards critical care time. Lab Data 04/30/25 05:52 04/30/25 05:52 Radiology Impressions Chest X-Ray 04/30/25 06:14 IMPRESSION: Mild developing infiltrates. Chest/Abdomen/Pelvis CT 04/30/25 07:02 IMPRESSION: Multifocal pneumonia with masslike confluent areas. Follow-up chest CT in 3 months recommended. IMPRESSION: 1. Ultrasound or MRI of the kidneys recommended to evaluate whether a cyst or mass is present within the right renal pelvis. 2. Cholelithiasis. COMMENTS: Consistent with the [employer]'s Incidental Findings Committee white paper (J Am Francis Radiol 2018): Any incidental renal lesion less than 1 cm or classified as too small to characterize, or any incidental cystic renal lesion characterized as simple-appearing, is likely benign. No follow-up imaging is recommended for these lesions per consensus recommendations based on imaging criteria. Renal Ultrasound 04/30/25 08:03 IMPRESSION: 3.1 cm solid mass in the right renal pelvis. MRI recommended for further evaluation. Laboratory Results WBC 24.49 10^3/uL (3.29-11.43) H 04/30/25 05:52 RBC 2.32 10^6/uL (3.85-5.65) L 04/30/25 05:52 Hgb 7.90 g/dL (11.27-16.99) L 04/30/25 05:52 Hct 26.0 % (37-53) L 04/30/25 05:52 MCV 112.1 fl (82-101) H 04/30/25 05:52 MCH 34.1 pg (27-33) H 04/30/25 05:52 MCHC 30.4 g/dL (30-55) 04/30/25 05:52 RDW 15.4 % (12.1-15.1) H 04/30/25 05:52 Plt Count 508 10^3/cmm (157-399) H 04/30/25 05:52 MPV 11.7 fL (7.4-10.4) H 04/30/25 05:52 Neut % (Auto) 49.6 % 04/30/25 05:52 Lymph % (Auto) 35.5 % 04/30/25 05:52 [place] % (Auto) 10.9 % 04/30/25 05:52 Eos % (Auto) 2.4 % 04/30/25 05:52 Baso % (Auto) 0.7 % 04/30/25 05:52 Neut # (Auto) 12.15 10^3/uL (1.8-7.7) H 04/30/25 05:52 Lymph # (Auto) 8.7 10^3/uL (0.8-4.8) H 04/30/25 05:52 [place] # (Auto) 2.7 10^3/uL (0.2-0.9) H 04/30/25 05:52 Eos # (Auto) 0.6 10^3/uL (0.0-0.8) 04/30/25 05:52 Baso # (Auto) 0.2 10^3/uL (0.0-0.1) H 04/30/25 05:52 Nucleated RBC % (auto) 0.9 % 04/30/25 05:52 Nucleated RBCs # 0.2 /100WBC 04/30/25 05:52 D-Dimer 1.52 ug/mLFEU (0-0.59) H 04/30/25 05:52 Specimen Type Arterial 04/30/25 05:59 Sample Site Radial, right 04/30/25 05:59 ABG pH 7.20 (7.35-7.45) L 04/30/25 05:59 ABG pCO2 62.6 mmHg (35-45) H* 04/30/25 05:59 ABG pO2 135.0 mmHg (80.0-100.0) H 04/30/25 05:59 ABG PO2/FiO2 Ratio 135 04/30/25 05:59 ABG HCO3 24.5 mmol/L (22-26) 04/30/25 05:59 ABG O2 Saturation > 99.1 04/30/25 05:59 ABG Base Excess -3.7 mmol/L (-2.0-2.0) L 04/30/25 05:59 Kev Test Pos 04/30/25 05:59 A-a O2 Gradient 65.2 mmHg (5-10) H 04/30/25 05:59 Hematocrit 25.3 % (42-52) L 04/30/25 05:59 Hgb O2 Saturation 96.0 % (95-100) 04/30/25 05:59 Carboxyhemoglobin 3.3 %THgb (0.4-20.1) 04/30/25 05:59 Methemoglobin 0.1 % (0.4-1.5) L 04/30/25 05:59 Total Hemoglobin 8.2 g/dL (14-18) L 04/30/25 05:59 Sodium 143.0 mmol/L (131-143) 04/30/25 05:59 Potassium 4.7 mmol/L (3.5-5.0) 04/30/25 05:59 Glucose 379.0 mg/dL (70-115) H 04/30/25 05:59 Ionized Calcium 1.3 mmol/L (1.1-1.4) 04/30/25 05:59 O2 Delivery Device Nrb 04/30/25 05:59 O2 Liters/Min 15.0 % 04/30/25 05:59 FiO2 100.0 % 04/30/25 05:59 Professor Of Industrial Technology ID [email or web address] 04/30/25 05:59 Sodium 140 mmol/L (136-145) 04/30/25 05:52 Potassium 4.6 mmol/L (3.5-5.1) 04/30/25 05:52 Chloride 103 mmol/L (98-107) 04/30/25 05:52 Carbon Dioxide 24 mmol/L (22-29) 04/30/25 05:52 Anion Gap 17.6 (5-19) 04/30/25 05:52 BUN 42 mg/dL (6-20) H 04/30/25 05:52 Creatinine 2.1 mg/dL (0.7-1.2) H 04/30/25 05:52 GFR Calculation 32.7 mL/min (90-130) L 04/30/25 05:52 Glucose 386 mg/dL (65-115) H 04/30/25 05:52 Calculated Osmolality 316 mOsm/kg (285-295) H 04/30/25 05:52 Lactic Acid 2.2 mmol/L (0.5-2.2) 04/30/25 05:52 Lactic Acid (Sepsis) 1.1 mmol/L (0.5-2.2) 04/30/25 08:36 Calcium 9.6 mg/dL (8.5-10.5) 04/30/25 05:52 Total Bilirubin 1.1 mg/dL (0.15-1.2) 04/30/25 05:52 AST 16 U/L (0-40) 04/30/25 05:52 ALT 17 U/L (0-41) 04/30/25 05:52 Alkaline Phosphatase 98 U/L (40-130) 04/30/25 05:52 Troponin T Baseline 51 ng/L (0-15) H 04/30/25 05:52 Troponin T 120 Minute 76.76 ng/L (0-15) H 04/30/25 07:50 Delta Troponin T 25.76 ABS# (0-10) H* 04/30/25 07:50 NT-Pro-B Natriuret Pep 2276 pg/mL (0-125) H 04/30/25 05:52 Total Protein 7.3 g/dL (6.6-8.7) 04/30/25 05:52 Albumin 4.1 g/dL (3.5-5.2) 04/30/25 05:52 Globulin 3.2 g/dL (1.3-4.6) 04/30/25 05:52 Serum Ketones Negative (Negative) 04/30/25 05:52 All radiology interpretation(s) finalized by discharge Discharge Plan Discharge Patient Disposition: Admitted As Inpatient Admit Provider: Boogie Griffith Clinical Impression: Multifocal pneumonia, Accelerated hypertension, Acute hypoxemic respiratory failure, Acute hypercapnic respiratory failure, Renal mass, Pyruvate kinase (PK) deficiency anemia Condition: Stable Coding Level of Care Code ED Belt Loop Machine Operator for Shira Mckinley
--- OUTSIDE RECORDS SUMMARY | 2025-04-30 05:53 | XMS_ITS | Data Portability ---
Author Organization [facility], Telemedicine Address [address] [id number] Assessment No assessment recorded. Plan of Treatment Reminders Order Date Submit Date Provider Last Modified By Organization Details Last Modified Time Details Appointments None recorded. Lab HbA1c (hemoglobin A1c), blood 2020 021 STUART Not available 07:13:24 venipunctur e 2020 021 Not available 08:43:07 CMP, serum or plasma 2020 STUART Not available 07:13:23 CBC w/ auto diff 2020 021 STUART Not available 07:13:24 lipid panel, serum 2020 STUART Not available 07:13:23 uric acid, serum or plasma 2020 021 STUART Not available 07:25:33 CBC w/ auto diff 2020 021 STUART Not available 07:25:34 testosteron e, total, serum 2020 021 STUART Not available 07:25:33 PSA, serum or plasma 2020 021 STUART Not available 07:25:34 Referral rheumatolog ist referral 2020 021 Jenifer Thompson MD, [facility] Rheumatology, [address], [address], 12:50:02 Procedures None recorded. Surgeries None recorded. Imaging XR, chest, 2 view 2020 021 [email or web address] Umair Milton MD, [address], [address], [place], [address], 15:28:15 Medication Orders Trulicity 1.5 mg/0.5 mL subcutaneou s pen injector 2020 [facility] #[id number], [address], [place], [place], [id number], 10:53:04 losartan 50 mg tablet 2020 [facility] #[id number], [address], [place], [place], [id number], 11:10:30 ketorolac 60 mg/2 mL intramuscul ar solution 2020 021 [email or web address] Not available 10:51:16 naproxen 500 mg tablet 2020 021 [facility] #58006, [address], [place], [place], [id number], 16:36:32 losartan 100 mg tablet 2020 021 [facility] #78641, [address], [place], [place], [id number], 10:49:49 Bactrim DS 800 mg-160 mg tablet 2020 021 [email or web address] [facility] #42094, [address], [place], [place], [id number], 10:51:20 Ozempic 0.25 mg or 0.5 mg (2 mg/1.5 mL) subcutaneou s pen injector 2020 021 [email or web address] 2 [facility] #44918, [address], [place], [place], [id number], 10:53:38 baclofen 10 mg tablet 2020 021 STUART [facility] #09725, [address], [place], [place], [id number], 15:20:14 Patient TargetsNo targets recorded. Patient Instructions Encounter Date Encounter Id Patient Instructions Last Modified By Organization Details Last Modified Time 11/29/2020 [id number] gout: care instructions Not available 11/29/2020 15:19:53 high blood pressure: care instructions Not available 11/29/2020 15:19:52 learning about high blood pressure Not available 11/29/2020 15:19:52 check labs and cont to follow. pt with several complaints and likely related to PK def and or uncontrolled htn/dm. check labs and get an idea where to go from here Not available 11/29/2020 16:42:00 12/27/2020 [id number] type 2 diabetes: care instructions Not available 12/27/2020 10:49:35 Long d/w pt on labs and concerns i have. will address diabetes and HTN. start on ozempic and losartan. will try to get pt established with rheum to help manage meds and issues. will give abx for lesion on back. suspect insect bite and will cont to monitor Not available 12/27/2020 13:00:21 02/01/2021 [id number] pleurisy: care instructions Not available 02/01/2021 16:36:24 03/01/2021 [id number] abdominal pain: care instructions Not available 03/01/2021 11:10:22 type 2 diabetes: care instructions Not available 03/01/2021 11:10:22 high blood pressure: care instructions Not available 03/01/2021 11:10:22 learning about high blood pressure Not available 03/01/2021 11:10:22 Erection Problems: Care Instructions Not available 03/01/2021 11:10:22 check labs and cont to follow. pt notoriously non compliant. will try lower dose of bp med and see if side effects improve. Not available 03/01/2021 12:39:57 04/10/2021 [id number] high blood pressure: care instructions Not available 04/10/2021 10:52:47 learning about high blood pressure Not available 04/10/2021 10:52:47 high cholesterol : care instructions Not available 04/10/2021 10:52:47 will trade from ozempic to trulicity and see if better tolerated. cont to follow. BP much improved Not available 04/10/2021 13:37:33 Reason for Referral [employer] Referral for Chronic gouty arthritis Referring Physician: Umair Milton, Family Medicine, Encounter Date: 12/27/2020 Results Created Date Observation Date Name Description Value Unit Range Abnormal Flag Note LastModifiedBy Organization Detail LastModifiedTime 11/30/19 21 11/30/2020 uric acid, serum or plasm a uric acid 4.7 mg/dL 4.0-8. 5 Not Available [facility] [address] [place], [address], 11/30/2020 07:25:33 11/30/1911/30/2020 testo stero ne, total , serum testosterone 333 NG/dL 300-89 0 Not Available [facility] [address] [place], [address], 11/30/2020 07:25:33 11/30/1911/30/2020 PSA, serum or plasm a PSA 1.49 NG/mL 0.00-4 .00 Comme nt for PSA Test perfo rmed using the Cooper elect cooper milum inesc ent immun oassa y (ECLI A). Not Available [facility] [address] [place], [address], 11/30/2020 07:25:34 11/30/19 21 11/30/2020 CBC w/ auto diff WBC 13.8 K/uL 4.0-11 .0 high Not Available [facility] [address] [place], [address], 11/30/2020 07:25:34 11/30/19 21 11/30/2020 CBC w/ auto diff RBC 3.21 M/uL 4.30-5 .70 low Not Available [facility] [address] [place], [address], 11/30/2020 07:25:34 11/30/19 21 11/30/2020 CBC w/ auto diff hemoglobin 10.8 g/dL 13.0-1 7.5 low Not Available [facility] [address] [place], [address], 11/30/2020 07:25:34 11/30/19 21 11/30/2020 CBC w/ auto diff hematocrit 34.0 % 39.0-5 5.0 low Not Available [facility] [address] [facility] [place], [address], 11/30/2020 07:25:34 11/30/19 21 11/30/2020 CBC w/ auto diff MCV 105.9 fL 78.0-1 02.0 high Not Available [facility] [address] [place], [place], [address], 11/30/2020 07:25:34 11/30/19 21 11/30/2020 CBC w/ auto diff MCH 33.6 pg 25.0-3 5.0 Not Available [facility] [address], [place], [address], 11/30/2020 07:25:34 11/30/19 21 11/30/2020 CBC w/ auto diff MCHC 31.8 g/dL 30.0-3 8.0 Not Available [facility] [address] [place], [address], 11/30/2020 07:25:34 11/30/19 21 11/30/2020 CBC w/ auto diff RDW 12.8 % 11.5-1 6.0 Not Available [facility] [address] [place], [address], 11/30/2020 07:25:34 11/30/19 21 11/30/2020 CBC w/ auto diff platelet count 433 K/uL 150-45 0 Not Available [facility] [address] [place], [place], [address], 11/30/2020 07:25:34 11/30/19 21 11/30/2020 CBC w/ auto diff abs neutrophils 8.2 K/uL 1.8-7. 0 high Not Available [facility] [address], [place], [address], 11/30/2020 07:25:34 11/30/19 21 11/30/2020 CBC w/ auto diff abs lymphocytes 2.9 K/uL 1.0-4. 0 Not Available [facility] [address], [place], [address], 11/30/2020 07:25:34 11/30/19 21 11/30/2020 CBC w/ auto diff abs monocytes 1.8 K/uL 0.1-1. 1 high Not Available [facility] [address] [place], [address], 11/30/2020 07:25:34 11/30/19 21 11/30/2020 CBC w/ auto diff abs eosinophils 0.3 K/uL 0.0-0. 5 Not Available [facility] [address], [place], [address], 11/30/2020 07:25:34 11/30/19 21 11/30/2020 CBC w/ auto diff abs basophils 0.1 K/uL 0.0-0. 3 Not Available [facility] [address] [place], [address], 11/30/2020 07:25:34 11/30/19 21 11/30/2020 CBC w/ auto diff abs bands 0.4 K/uL <0.1 high Not Available [facility] [address] [place], [address], 11/30/2020 07:25:34 11/30/19 21 11/30/2020 CBC w/ auto diff neutrophils 59.6 % Not Available [facility] [address] [place], [address], 11/30/2020 07:25:34 11/30/19 21 11/30/2020 CBC w/ auto diff lymphocytes 21.3 % Not Available [facility] [address] [place], [place], [address], 11/30/2020 07:25:34 11/30/19 21 11/30/2020 CBC w/ auto diff monocytes 13.4 % Not Available [facility] [address] [place], [address], 11/30/2020 07:25:34 11/30/19 21 11/30/2020 CBC w/ auto diff eosinophils 2.1 % Not Available [facility] [address] [place], [address], 11/30/2020 07:25:34 11/30/19 21 11/30/2020 CBC w/ auto diff basophils 1.0 % Not Available [facility] [address] [facility] [place], [address], 11/30/2020 07:25:34 11/30/19 21 11/30/2020 CBC w/ auto diff bands 2.6 % Not Available [facility] [address] [facility] [place], [address], 11/30/2020 07:25:34 11/30/19 21 11/30/2020 blood film for revmckayla w blood film for review See Note Comme nts on Lab Id:[id number] RBC Morph ology : Spher ocyte s +, Targe t cells +, Aniso cytos is ++, Macro cytes ++, Poiki locyt osis +++, Polyc hroma tic cells +++, Large Plate lets ++, Giant Plate lets ++, Plate let Clump s ++ Plate lets Liza l Not Available [facility] [address] [facility] [place], [address], 11/30/2020 07:25:35 11/30/19 21 12/01/2020 CMP, serum or plasm a sodium 136 mEq/L 135-14 6 Not Available [facility] [address] [facility] [place], [address], 12/01/2020 05:28:13 11/30/19 21 12/01/2020 CMP, serum or plasm a potassium 4.9 mEq/L 3.5-5. 4 Not Available [facility] [address] [facility] [place], [address], 12/01/2020 05:28:13 11/30/19 21 12/01/2020 CMP, serum or plasm a chloride 100 mEq/L 95-107 Not Available [facility] [address] [facility] [place], [address], 12/01/2020 05:28:13 11/30/19 21 12/01/2020 CMP, serum or plasm a carbon dioxide 19 mEq/L 19-31 Not Available [facility] [address] [place], [address], 12/01/2020 05:28:13 11/30/19 21 12/01/2020 CMP, serum or plasm a anion gap 17 mEq/L 7-23 Not Available [facility] [address] [place], [address], 12/01/2020 05:28:13 11/30/19 21 12/01/2020 CMP, serum or plasm a glucose non-fasting 432 mg/dL 70-139 high Not Available [facility] [address] [place], [place], [address], 12/01/2020 05:28:13 11/30/19 21 12/01/2020 CMP, serum or plasm a urea nitrogen (BUN) 21 mg/dL 6-20 high Not Available [facility] [address] [place], [place], [address], 12/01/2020 05:28:13 11/30/1912/01/2020 CMP, serum or plasm a creatinine 1.19 mg/dL 0.80-1 .40 Not Available [facility] [address] [place], [place], [address], 12/01/2020 05:28:13 11/30/1912/01/2020 CMP, serum or plasm a eGFR 80 mL/mi n/1.7 3m'2 >59 Not Available [facility] [address] [place], [address], 12/01/2020 05:28:13 11/30/19 21 12/01/2020 CMP, serum or plasm a eGFR non- amer 69 mL/mi n/1.7 3m'2 >59 Not Available [facility] [address] [place], [address], 12/01/2020 05:28:13 11/30/19 21 12/01/2020 CMP, serum or plasm a BUN/creatini ne ratio 18 ratio Not Available [facility] [address] [place], [address], 12/01/2020 05:28:13 11/30/19 21 12/01/2020 CMP, serum or plasm a calcium total 10.5 mg/dL 8.5-10 .5 Not Available [facility] [address] [place], [address], 12/01/2020 05:28:13 11/30/19 21 12/01/2020 CMP, serum or plasm a protein total 7.2 g/dL 6.1-8. 3 Not Available [facility] [address] [place], [address], 12/01/2020 05:28:13 11/30/19 21 12/01/2020 CMP, serum or plasm a albumin 4.5 g/dL 3.5-5. 2 Not Available [facility] [address] [place], [address], 12/01/2020 05:28:13 11/30/19 21 12/01/2020 CMP, serum or plasm a globulin 2.7 g/dL 1.7-4. 3 Not Available [facility] [address] [place], [address], 12/01/2020 05:28:13 11/30/19 21 12/01/2020 CMP, serum or plasm a A/G ratio 1.7 ratio 0.9-2. 8 Not Available [facility] [address] [facility] [place], [address], 12/01/2020 05:28:13 11/30/19 21 12/01/2020 CMP, serum or plasm a bilirubin total 0.9 mg/dL 0.0-1. 2 Not Available [facility] [address] [facility] [place], [address], 12/01/2020 05:28:13 11/30/19 21 12/01/2020 CMP, serum or plasm a alkaline phosphatase 124 U/L 40-121 high Not Available [facility] [address] [facility] [place], [address], 12/01/2020 05:28:13 11/30/19 21 12/01/2020 CMP, serum or plasm a AST (SGOT) 19 U/L 9-50 Not Available [facility] [address] [facility] [place], [address], 12/01/2020 05:28:13 11/30/19 21 12/01/2020 CMP, serum or plasm a ALT (SGPT) 27 U/L 5-50 Not Available [facility] [address] [facility] [place], [address], 12/01/2020 05:28:13 03/01/20 21 03/02/2021 COMP METAB OLIC PANEL sodium 137 mEq/L 135-14 6 Not Available [facility] [address] [facility] [place], [address], 03/02/2021 07:13:23 03/01/20 21 03/02/2021 COMP METAB OLIC PANEL potassium 4.7 mEq/L 3.5-5. 4 Not Available [facility] [address] [place], [address], 03/02/2021 07:13:23 03/01/20 21 03/02/2021 COMP METAB OLIC PANEL chloride 107 mEq/L 95-107 Not Available [facility] [address] [place], [address], 03/02/2021 07:13:23 03/01/20 21 03/02/2021 COMP METAB OLIC PANEL carbon dioxide 17 mEq/L 19-31 low Not Available [facility] [address] [place], [place], [address], 03/02/2021 07:13:23 03/01/20 21 03/02/2021 COMP METAB OLIC PANEL anion gap 13 mEq/L 7-23 Not Available [facility] [address] [place], [address], 03/02/2021 07:13:23 03/01/20 21 03/02/2021 COMP METAB OLIC PANEL glucose fasting 249 mg/dL 70-99 high Not Available [facility] [address] [place], [place], [address], 03/02/2021 07:13:23 03/01/20 21 03/02/2021 COMP METAB OLIC PANEL urea nitrogen (BUN) 22 mg/dL 6-20 high Not Available [facility] [address] [place], [place], [address], 03/02/2021 07:13:23 03/01/20 21 03/02/2021 COMP METAB OLIC PANEL creatinine 1.07 mg/dL 0.80-1 .40 Not Available [facility] [address] [place], [place], [address], 03/02/2021 07:13:23 03/01/20 21 03/02/2021 COMP METAB OLIC PANEL eGFR 91 mL/mi n/1.7 3m'2 >59 Not Available [facility] [address] [place], [address], 03/02/2021 07:13:23 03/01/20 21 03/02/2021 COMP METAB OLIC PANEL eGFR non- amer 79 mL/mi n/1.7 3m'2 >59 Not Available [facility] [address] [place], [place], [address], 03/02/2021 07:13:23 03/01/20 21 03/02/2021 COMP METAB OLIC PANEL BUN/creatini ne ratio 21 ratio Not Available [facility] [address], [place], [address], 03/02/2021 07:13:23 03/01/20 21 03/02/2021 COMP METAB OLIC PANEL calcium total 10.2 mg/dL 8.5-10 .5 Not Available [facility] [address], [place], [address], 03/02/2021 07:13:23 03/01/20 21 03/02/2021 COMP METAB OLIC PANEL protein total 7.0 g/dL 6.1-8. 3 Not Available [facility] [address], [place], [address], 03/02/2021 07:13:23 03/01/20 21 03/02/2021 COMP METAB OLIC PANEL albumin 4.3 g/dL 3.5-5. 2 Not Available [facility] [address] [place], [place], [address], 03/02/2021 07:13:23 03/01/20 21 03/02/2021 COMP METAB OLIC PANEL globulin 2.7 g/dL 1.7-4. 3 Not Available [facility] [address] [place], [address], 03/02/2021 07:13:23 03/01/20 21 03/02/2021 COMP METAB OLIC PANEL A/G ratio 1.6 ratio 0.9-2. 8 Not Available [facility] [address] [place], [address], 03/02/2021 07:13:23 03/01/20 21 03/02/2021 COMP METAB OLIC PANEL bilirubin total 1.2 mg/dL 0.0-1. 2 Not Available [facility] [address] [place], [address], 03/02/2021 07:13:23 03/01/20 21 03/02/2021 COMP METAB OLIC PANEL alkaline phosphatase 99 U/L 40-121 Not Available [facility] [address] [place], [address], 03/02/2021 07:13:23 03/01/20 21 03/02/2021 COMP METAB OLIC PANEL AST (SGOT) 18 U/L 9-50 Not Available [facility] [address] [place], [address], 03/02/2021 07:13:23 03/01/20 21 03/02/2021 COMP METAB OLIC PANEL ALT (SGPT) 25 U/L 5-50 Not Available [facility] [address] [place], [address], 03/02/2021 07:13:23 03/01/20 21 03/02/2021 LIPID PROFI LE cholesterol 225 mg/dL <[address] [facility] [address] [place], [address], 03/02/2021 07:13:23 03/01/20 21 03/02/2021 LIPID PROFI LE triglyceride s 251 mg/dL 0-149 high Not Available [facility] [address] [place], [address], 03/02/2021 07:13:23 03/01/20 21 03/02/2021 LIPID PROFI LE HDL cholesterol 33 mg/dL >39 low Not Available [facility] [address] [place], [address], 03/02/2021 07:13:23 03/01/20 21 03/02/2021 LIPID PROFI LE LDL cholesterol 151 mg/dL <100 high Not Available [facility] [address] [place], [address], 03/02/2021 07:13:23 03/01/20 21 03/02/2021 LIPID PROFI LE non HDL cholesterol 192 mg/dL <130 high Not Available [facility] [address] [place], [address], 03/02/2021 07:13:23 03/01/20 21 03/02/2021 LIPID PROFI LE coronary risk ratio 6.82 <4.97 high Comme nt for LIPID PROFI LE Non-H DL Estelle stero l is a sadia r indic ator for cardi ovasc ular risk than LDL-C holes terol for patie nts who have incre ased trigl yceri austin or are non-f astin g. Non-H DL Estelle stero l: < 130 mg/dL (Opti mal) < 160 mg/dL (Near Optim al/Ab ove Optim al) LDL Estelle stero l: < 100 mg/dL (Opti mal) < 130 mg/dL (Near Optim al/Ab ove Optim al) Coron martínez Risk Ratio : [place] [facility] for males < 4.97 NOTE: LDL calcu latio n updat ed to [facility] formu la on 1. Pleas e conta ct [facility]EL to obtai n addit ional infor delroy n on this new calcu latio n. Not Available [facility] [address] [facility] [place], [address], 03/02/2021 07:13:23 03/01/20 21 03/02/2021 HEMOG LOBIN A1C hemoglobin A1C 7.7 % 4.2-5. 6 high Not Available [facility] [address] [facility] [place], [address], 03/02/2021 07:13:24 03/01/20 21 03/02/2021 HEMOG LOBIN A1C mean glucose est 174 mg/dL Comme nt for HEMOG LOBIN A1C [facility] i[facility] n Guide lines for Hgb A1c: Predi abete s/Inc rease d risk: 5.7 - 6.4 % Diagn osis of diabe yenifer: >= 6.5 % (with confi rmati on or appro priat e sympt oms) Assay may be affec juan f by hemog lobin opath ies (sick le cell anemi a, SC disea se, other s) or artif icial ly lower ed by decre ased red cell survi ritesh (hemo lytic anemi as, blood loss, etc.) . Consi nani alter yecenia testi ng or labor atory consu ltati on. Not Available [facility] [address] [facility] [place], [address], 03/02/2021 07:13:24 03/01/20 21 03/02/2021 CBC WITH DIFFE RENTI AL WBC 15.9 K/uL 4.0-11 .0 high Not Available [facility] [address] [facility] [place], [address], 03/02/2021 07:13:24 03/01/20 21 03/02/2021 CBC WITH DIFFE RENTI AL RBC 2.95 M/uL 4.30-5 .70 low Not Available [facility] [address] [place], [address], 03/02/2021 07:13:24 03/01/20 21 03/02/2021 CBC WITH DIFFE RENTI AL hemoglobin 10.0 g/dL 13.0-1 7.5 low Not Available [facility] [address] [place], [address], 03/02/2021 07:13:24 03/01/20 21 03/02/2021 CBC WITH DIFFE RENTI AL hematocrit 31.6 % 39.0-5 5.0 low Not Available [facility] [address], [place], [address], 03/02/2021 07:13:24 03/01/20 21 03/02/2021 CBC WITH DIFFE RENTI AL MCV 107.1 fL 78.0-1 02.0 high Not Available [facility] [address], [place], [address], 03/02/2021 07:13:24 03/01/20 21 03/02/2021 CBC WITH DIFFE RENTI AL MCH 33.9 pg 25.0-3 5.0 Not Available [facility] [address] [place], [address], 03/02/2021 07:13:24 03/01/20 21 03/02/2021 CBC WITH DIFFE RENTI AL MCHC 31.6 g/dL 30.0-3 8.0 Not Available [facility] [address], [place], [address], 03/02/2021 07:13:24 03/01/20 21 03/02/2021 CBC WITH DIFFE RENTI AL RDW 13.9 % 11.5-1 6.0 Not Available [facility] [address] [place], [address], 03/02/2021 07:13:24 03/01/20 21 03/02/2021 CBC WITH DIFFE RENTI AL platelet count 462 K/uL 150-45 0 high Not Available [facility] [address] [place], [place], [address], 03/02/2021 07:13:24 03/01/20 21 03/02/2021 CBC WITH DIFFE RENTI AL abs neutrophils 9.8 K/uL 1.8-7. 0 high Not Available [facility] [address] [place], [place], [address], 03/02/2021 07:13:24 03/01/20 21 03/02/2021 CBC WITH DIFFE RENTI AL abs lymphocytes 3.3 K/uL 1.0-4. 0 Not Available [facility] [address] [place], [place], [address], 03/02/2021 07:13:24 03/01/20 21 03/02/2021 CBC WITH DIFFE RENTI AL abs monocytes 1.7 K/uL 0.1-1. 1 high Not Available [facility] [address] [facility] [place], [address], 03/02/2021 07:13:24 03/01/20 21 03/02/2021 CBC WITH DIFFE RENTI AL abs eosinophils 0.7 K/uL 0.0-0. 5 high Not Available [facility] [address] [place], [address], 03/02/2021 07:13:24 03/01/20 21 03/02/2021 CBC WITH DIFFE RENTI AL abs basophils 0.1 K/uL 0.0-0. 3 Not Available [facility] [address] [place], [address], 03/02/2021 07:13:24 03/01/20 21 03/02/2021 CBC WITH DIFFE RENTI AL abs bands 0.3 K/uL <0.1 high Not Available [facility] [address] [place], [place], [address], 03/02/2021 07:13:24 03/01/20 21 03/02/2021 CBC WITH DIFFE RENTI AL neutrophils 61.7 % Not Available [facility] [address] [place], [address], 03/02/2021 07:13:24 03/01/20 21 03/02/2021 CBC WITH DIFFE RENTI AL lymphocytes 20.6 % Not Available [facility] [address] [place], [place], [address], 03/02/2021 07:13:24 03/01/20 21 03/02/2021 CBC WITH DIFFE RENTI AL monocytes 10.7 % Not Available [facility] [address] [place], [address], 03/02/2021 07:13:24 03/01/20 21 03/02/2021 CBC WITH DIFFE RENTI AL eosinophils 4.5 % Not Available [facility] [address] [place], [place], [address], 03/02/2021 07:13:24 03/01/20 21 03/02/2021 CBC WITH DIFFE RENTI AL basophils 0.8 % Not Available [facility] [address] [place], [address], 03/02/2021 07:13:24 03/01/20 21 03/02/2021 CBC WITH DIFFE RENTI AL bands 1.7 % Not Available [facility] [address] [place], [address], 03/02/2021 07:13:24 03/01/20 21 03/02/2021 BLOOD FILM FOR FELICIANO Parra blood film for review See Note Brian nts on Lab Id:[id number] RBC Morph ology : Schis tocyt es +, Aniso cytos is ++, Macro cytes ++, Poiki locyt osis +++, Polyc hroma tic cells + Plate lets Incre ased Not Available [facility] [address] [place], [address], 03/02/2021 07:13:25 11/30/19 21 XR, chest , 2 view No observ ation record ed. Umair Milton MD [address], [place], [address], 11/29/2020 15:19:54 11/30/19 21 11/29/2020 XR, chest , 2 view No observ ation record ed. Umair Milton MD [address], [place], [address], 11/29/2020 15:56:34 Result Notes None recorded. 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 [place], [place] - Umair Milton 6 10:28:28 Chronic tophaceous gout [id number] Alfred Milton MD [address] [place], [address], [place] - Umair Milton 5 10:56:37 Diabetes mellitus 22775958 Active Conchis beasley, KATHERIN Milton 6 10:28:28 Impotence Active [place], [address], [facility] Umair Milton 5 10:56:37 Tick bite 65996567 Active Umair Milton MD [address], KATHER[place], [address], [facility] Umair Karine 5 12:45:10 Abdominal pain 45055095 [place], [address], [facility] Umair Karine 5 12:45:10 Essential hypertension 08245761 Active Conchis beasley [facility] Karine 6 10:28:28 Hyperlipidemia 50257879 Active Esperanza beasley [facility] [place] 6 13:07:03 Problem Notes None recorded. Procedures Surgical History Date Name Laterality Status Provider Name and Address Organization Details Recorded Time 5 Colonoscopy completed Esperanza Rebolledo [facility] Umair Milton 01/18/2015 15:40:36 4 Splenectomy completed Tiffany Hendrix [facility] Umair Milton 11/21/2014 13:13:59 Imaging Results None recorded. Procedure Notes None recorded. Medical Equipment None Reported. Allergies No known drug allergies Medications Name Sig Start Date Stop Date Status Note LastModified by Organization Details LastModified Time losartan 50 mg tablet Take 1 tablet every day by oral route. active Not Available Not Available No t Available cyclobenzap rine 10 mg tablet TAKE 1 TABLET BY MOUTH THREE TIMES DAILY NEEDED active Not Available Not Available No t Available metformin 500 mg tablet Take 1 tablet twice a day by oral route for 30 days. 2014 active Not Available Not Available Not Avai lable prednisone 10 mg tablet TAKE 1 TABLET BY MOUTH EVERY DAY 10/14 completed Not Available Not Available Not Available doxycycline hyclate 100 mg capsule TAKE 1 CAPSULE BY MOUTH TWICE DAILY FOR MYALGIA 11/29 completed Not Available Not Available Not Available atorvastati n 20 mg tablet Take 1 tablet every day by oral route. 05/22 completed Not Available Not Available Not Available donepezil 5 mg tablet 12/07 completed Not Available Not Available Not Available hydrocodone 5 mg-acetamin ophen 325 mg tablet TAKE 1 TO 2 TABLETS BY MOUTH EVERY 4 TO 6 HOURS NEEDED FOR PAIN MAX DAILY AMOUNT 6 TABLETS DO NOT TAKE WITH TYLENOL OR OTHER NARCOTICS 11/29 completed Not Available Not Available Not Available methylpheni date 20 mg tablet TAKE 1 TABLET BY MOUTH TWICE DAILY active Not Available Not Available No t Available Lasix 40 mg tablet one po daily 2013 active Not Available Not Available Not Avai lable lisinopril 20 mg tablet TAKE 1 TABLET BY MOUTH EVERY DAY. active Not Available Not Available No t Available prednisone 20 mg tablet TAKE 2 TABLETS BY MOUTH TWICE DAILY FOR 5 DAYS active Not Available Not Available No t Available bacitracin 500 unit/gram topical ointment Apply 1 applicati on twice a day by topical route. 06/26 completed Not Available Not Available Not Available allopurinol 100 mg tablet TAKE 1 TABLET BY MOUTH DAILY active Not Available Not Available No t Available sulfamethox azole 800 mg-trimetho prim 160 mg tablet TAKE 1 TABLET BY MOUTH EVERY 12 HOURS 03/01 completed Not Available Not Available Not Available tramadol 50 mg tablet 10/14 completed Not Available Not Available Not Available prednisone 10 mg tablets in a dose pack FOLLOW PACKAGE DIRECTION S 10/14 completed Not Available Not Available Not Available terbinafine HCl 250 mg tablet Take 1 tablet every day by oral route. 06/26 completed Not Available Not Available Not Available gentamicin 0.3 % eye drops INSTILL 2 DROP INTO AFFECTED EYE(S) BY OPHTHALMI C ROUTE EVERY 8 HOURS FOR 3 DAYS 06/26 completed Not Available Not Available Not Available baclofen 10 mg tablet TAKE 1 TABLET BY MOUTH THREE TIMES DAILY NEEDED active Not Available Not Available No t Available metformin 1,000 mg tablet Take 1 tablet twice a day by oral route for 30 days. 12/07 completed Not Available Not Available Not Available lisinopril 10 mg tablet Take 1 tablet every day by oral route. 05/22 completed Not Available Not Available Not Available indomethaci n 25 mg capsule 12/01 completed Not Available Not Available Not Available allopurinol 300 mg tablet TAKE 1 TABLET BY MOUTH DAILY active Not Available Not Available No t Available [place] 10 mg-325 mg tablet Take 1 tablet every 4 hours by oral route as needed. 10/14 completed Not Available Not Available Not Available [place] 7.5 mg-325 mg tablet Take 1 tablet every 6 hours by oral route as needed. 10/14 completed Not Available Not Available Not Available methylpredn isolone 4 mg tablets in a dose pack FOLLOW PACKAGE DIRECTION S active Not Available Not Available No t Available colchicine 0.6 mg tablet Take 1 tablet every day by oral route. 12/07 completed Not Available Not Available Not Available ketorolac 60 mg/2 mL intramuscul ar solution Inject 2 mL every 6 hours by intramusc ular route. 03/01 completed Not Available Not Available Not Available losartan 100 mg tablet TAKE 1 TABLET BY MOUTH EVERY DAY active Not Available Not Available No t Available naproxen 500 mg tablet TAKE 1 TABLET BY MOUTH TWICE DAILY NEEDED active Not Available Not Available No t Available Asprin Ec Low Dose 81 mg tablet,saravanan yed release Take 1 tablet every day by oral route. active Not Available Not Available No t Available rosuvastati n 10 mg tablet TAKE 1 TABLET BY MOUTH AT BEDTIME 12/07 completed Not Available Not Available Not Available folic acid ER 2.5 mg-vit B6 25 mg-vit B12 2 mg tablet,ext. release 24hr Take 1 tablet every day by oral route. 05/22 completed Not Available Not Available Not Available Jardiance 25 mg tablet Take 1 tablet every day by oral route. 12/07 completed Not Available Not Available Not Available Trulicity 1.5 mg/0.5 mL subcutaneou s pen injector Inject 1.5 mg every week by subcutane ous route. 2020 active Not Available Not Available Not Avai lable Ozempic 0.25 mg or 0.5 mg (2 mg/1.5 mL) subcutaneou s pen injector INJECT 0.5MG UNDER THE SKIN EVERY WEEK active Not Available Not Available No t Available Vitals Date Recorded Body height Body mass index (BMI) Body weight Body temperature Heart rate Oxygen saturation Oxygen saturation in Arterial blood by Pulse oximetry Systolic And Diastolic Provider Name and Address Organization Details Last Updated DateTime 1 180.34 cm 35.4 kg/m2 996130. 46 g 98 [degF] 90 /min 92 % 92 % 186/97 mm[Hg] Esperanza Rebolledo [facility] 14:12:11 Date Recorded Body height Body mass index (BMI) Body weight Body temperature Oxygen saturation Oxygen saturation in Arterial blood by Pulse oximetry Heart rate Systolic And Diastolic Provider Name and Address Organization Details Last Updated DateTime 1 180.34 cm 34.6 kg/m2 858205. 91 g 97.2 [degF] 93 % 93 % 89 /min 189/100 mm[Hg] [facility] 10:19:54 Date Recorded Body height Body temperature Body mass index (BMI) Body weight Heart rate Oxygen saturation Oxygen saturation in Arterial blood by Pulse oximetry Systolic And Diastolic Provider Name and Address Organization Details Last Updated DateTime 1 180.34 cm 98.3 [degF] 34.2 kg/m2 579195. 13 g 101 /min 95 % 95 % 133/86 mm[Hg] Tiffany Hendrix [facility] [place] 15:59:08 Date Recorded Body height Body mass index (BMI) Body weight Body temperature Heart rate Oxygen saturation Oxygen saturation in Arterial blood by Pulse oximetry Systolic And Diastolic Provider Name and Address Organization Details Last Updated DateTime 1 180.34 cm 34 kg/m2 800072. 54 g 97.9 [degF] 94 /min 93 % 93 % 177/94 mm[Hg] [facility] 10:52[facility]53 Date Recorded Body height Body mass index (BMI) Body weight Body temperature Heart rate Oxygen saturation Oxygen saturation in Arterial blood by Pulse oximetry Systolic And Diastolic Provider Name and Address Organization Details Last Updated DateTime 1 180.34 cm 33.3 kg/m2 844567. 58 g 96.9 [degF] 91 /min 96 % 96 % 135/80 mm[Hg] Esperanza Rebolledo [facility] Umair [facility] 09:52:19 Social History Question Answer Notes LastModified by Organizat ion Details LastModified Time Tobacco Smoking Status Never Smoker Not Available [email or web address] 06/06/2020 03:38:56 What Is Your Level Of Caffeine Consumption? Occasional [id number] Information not available 06/06/2020 How Much Tobacco Do You Chew? None [id number] Information not available 06/06/2020 What Type Of Diet Are You Following? REGULAR [id number] Information not available 06/06/2020 Education 12 [email or web address] Information no t available 11/21/2014 How Many Days In The Past Year Have You Had A Heavy Drinking Consumption (4+ Female, 5+ Male)? 0 Information not available 11/18/2016 Are There Any Guns Present In Your Home? No [id number] Information not available 06/06/2020 Hard Of Hearing Or Deaf In One Or Both Ears? No Information not available 11/21/2014 Legally Blind In One Or Both Eyes? No Information not available 11/21/2014 Live Alone Or With Others? With Others Information not available 05/09/2015 Risk Assessment Medium Informati on not available 09/03/2017 Marital Status [email or web address] Informatio n not available 11/21/2014 What Was The Date Of Your Most Recent Tobacco Screening? 06/26/2020 Information not available 06/26/2020 How Many Children Do You Have? 3 [id number] Information not available 06/06/2020 Seat Belts Used Routinely Yes [email or web address] Information not available 11/21/2014 Smoke Alarm In Home Yes [email or web address] Information not available 11/21/2014 Are You Passively Exposed To Smoke? No Information not available 05/09/2015 How Much Tobacco Do You Smoke? No [id number] Information not available 06/06/2020 General Stress Level Medium [email or web address] Information not available 11/21/2014 Do You Use Sunscreen Routinely? No [id number] Information not available 06/06/2020 Do You Have Difficulty Walking Or Climbing Stairs? No [id number] Information not available 06/06/2020 Sex: Unknown Functional Status Question Answer Note LastModified by Organizat ion Details LastModified Time What is your level of alcohol consumption? None [id number] Information not available 06/06/2020 Do you or have you ever used smokeless tobacco? Never used smokeless tobacco Information not available 06/26/2020 Are you currently employed? Yes [id number] Information not available 06/06/2020 Urinary incontinence assessment performed? Yes Information not available 11/18/2016 Do you have difficulty doing errands alone? No [id number] Information not available 06/06/2020 Are you able to care for yourself independently? Yes [id number] Information not available 06/06/2020 Do you have difficulty dressing, bathing, grooming, or toileting? No [id number] Information not available 06/06/2020 Do you or have you ever used e-cigarettes or vape? Never used electronic cigarettes Information not available 06/26/2020 What is your exercise level? None [id number] Information not available 06/06/2020 Mental Status Question Answer Note LastModified by Organization D etails LastModified Time Do you have difficulty concentrating, remembering or making decisions? No [id number] Information no t available 06/06/2020 Family History Nothing Reported. Medical History Condition Response Blood Diseases Y Blood Transfusion Y Immunizations Vaccine Type Date Status Note Provider Nam e and Address Organization Details Recorded Time Tdap 05/16/2014 completed Not Available [facility] 12/09/2022 15:33:33 Past Encounters Encounter ID Performer Location Encounter Start Date Encounter Closed Date Diagnosis/Indication Diagnosis SNOMED-CT Code Diagnosis ICD10 Code Diagnosis IMO Codes Diagnosis Note [id number] Umair Milton MD Main Office [address] [place] [id number] 1 11/21/2014 12:11:45 11/21/2014 14:05:23 Hematochezia 752022432 cbc,cea. will set up for colonoscop y and follow. send lab results to [facility]. Chronic go uty arthritis 35039087 uric acid, cmp. pt may need to stop nsaid and allopurino l. sees rheum tomorrow. hesitant to give steroid injection while taking high dose steroid. 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 curious to see how much improved [place]ectom y [id number] Umair Milton MD Main Office [address] [place] [id number] 1 05/09/2015 09:56:23 05/09/2015 11:10:21 Chronic tophaceous gout 22675939 M1A.9XX1 Diabetes mellitus 819385 09 E11.319 cbc,cmp, hgba1c Impotence 042555069 N52. 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 Essential hypertension 21157001 I10 [id number] Umair Milton MD Main Office [address] [place] [id number] 1 05/22/2016 11:19:53 05/22/2016 12:52:47 Hyperlipidemia 44117283 E78.5 Essential hypertension 37233700 I10 Uncontroll ed type 2 diabetes mellitus 075163219 E11.65 Fatigue 09636946 R53.83 Chronic go uty arthritis 99973322 M1A.9XX0 Deficiency of pyruvate kinase 443033043 E88.89 Adult heal th examination 518962326 Z00.00 Administra tion of pneumococcal vaccine 58754798 Z23 [id number] Umair Milton MD Main Office [address] [place] [id number] 1 11/18/2016 14:47:07 11/18/2016 16:59:32 Depression screening 394743399 Z13.89 Arthritis of hip 5609931 6 M13.852 left hip - severe deg changes, Chronic go uty arthritis 73169206 M1A.9XX0 [id number] Umair Milton MD Main Office [address] [place] [id number] 1 10/14/2018 11:14:43 10/14/2018 12:26:20 Essential hypertension 10997133 I10 Hyperlipidemia 55857919 E78.5 Diabetes mellitus 150581 09 E11.319 Chronic go uty arthritis 06147417 M1A.9XX0 Strain of back muscle 26 6001178 S39.012A Cerebrovas cular accident 084644123 I63.9 [id number] Umair Milton MD Main Office [address] [place] [id number] 1 12/01/2018 11:40:11 12/01/2018 12:45:33 Uncontrolled type 2 diabetes mellitus 144421970 E11.65 Hyperlipidemia 45895707 E78.5 Gout 64886044 M10.9 Anemia of chronic disease 376534983 D63.8 [id number] Umair Milton MD Main Office [address] [place] [id number] 1 12/08/2019 14:43:55 12/08/2019 15:50:39 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 [id number] Umair Milton MD Main Office [address] [place] [id number] 1 06/26/2020 14:05:51 06/26/2020 14:50:45 Hyperlipidemia 07835218 E78.5 Essential hypertension 83255829 I10 Chronic go uty arthritis 89026821 M1A.9XX0 Diabetes mellitus 749140 09 E11.319 Strain of back muscle 26 6792856 S39.012A Deficiency of pyruvate kinase 624187151 E88.89 [id number] Umair Milton MD Main Office [address] [place] [id number] 1 11/29/2020 14:07:30 11/29/2020 15:28:15 Chest wall pain 628463190 R07.89 Chest - unremarkab le Essential hypertension 26255203 I10 Gout 37252515 M10.9 Hypogonadism 87986037 E2 9.1 Deficiency of pyruvate kinase 612716877 E88.89 [id number] Umari Milton MD Main Office [address] [place] [id number] 1 12/27/2020 10:06:14 12/27/2020 17:46:28 Uncontrolled type 2 diabetes mellitus 973423703 E11.65 Hypertensive disorder 38 794767 I10 Chronic go uty arthritis 83875409 M1A.9XX0 Insect bite - wound 4844 75084 T14.8XXA Deficiency of pyruvate kinase 662241001 E88.89 [id number] Umair Milton MD Main Office [address] [place] [address] KATHERIN HOLT [address] 1 02/01/2021 15:36:36 02/06/2021 12:17:09 Pleurisy 235801386 R09.1 [id number] Umair Milton MD Main Office [address] [place] [address] KATHERIN HOLT [id number] 1 03/01/2021 10:40:11 03/01/2021 11:24:02 Deficiency of pyruvate kinase 486070712 E88.89 Abdominal pain 10939600 R10.9 Impotence 623984772 N52. 9 Essential hypertension 95482440 I10 Uncontroll ed type 2 diabetes mellitus 619283453 E11.65 [id number] Umair Milton MD Main Office [address] [place] [address] KATHERIN HOLT [id number] 1 04/10/2021 09:43:24 04/10/2021 10:58:38 Hyperlipidemia 69873664 E78.5 Essential hypertension 00552383 I10 Chronic go uty arthritis 78436401 M1A.9XX0 Diabetes mellitus 201971 09 E11.319 Health Concerns Section Related Observation LastModified by Organization Detai ls LastModified Time None Recorded Concern Status LastModified by Organization Details LastModified Time None Recorded Advance Directives Directive None Recorded Payers Insurance Date Sequence Insurance Name Policy Number Policy Colón Covered Member ID Colón Member ID Guarantor Name 06/05/2015 1 [facility] [id number] Ernie Plasencia [id number] Ernie Plasencia 10/14/2018 1 [employer] - OPEN ACCESS MANAGED CHOICE (POS) [id number] Ruth Ann Plasencia [id number] Ernie Plasencia 07/10/2021 1 [place] [id number] Ruth Ann Plasencia [id number] Ernie Plasencia Notes Date Note Type Note Provider Name and Address Organization Details Recorded Time 1 text/html Hypertension F/UReported by PatientHPIFor associated symptoms, patient reportsno dizziness,no lightheadedness,no chest pain,no shortness of breath,no palpitations,no edema, andno calf pain with exertion. For lifestyle, patient reportsregular exerciseandlimiting/avoi ding salt. For medications, patient reportstaking medications as directedandno side effects from medication. Musculoskeletal PainReported by PatientHPIFor quality, patient reportsdull. For severity, patient reportspain level without meds 6/10. For duration, patient reportspresent <1 month. For timing, patient reportsintermittent. For location, (right sided rib pain).ROS as noted in the HPI Patient states that he has right sided rib pain. Patient has been seeing a chiropractor, Romeo Paige, and he was told that his ribs are popped out. Pt also says he is unable to get an erection and or care about sex. asking to have his hormones checked Umair Milton MD [address] [place], [address], [place] KATHERIN Milton 11/29/2020 16:42:05 text/html Hypertension F/UReported by PatientHPIFor associated symptoms, patient reportsno dizziness,no lightheadedness,no chest pain,no shortness of breath,no palpitations,no edema, andno calf pain with exertion. For lifestyle, patient reportsregular exerciseandlimiting/avoi ding salt. For medications, patient reportstaking medications as directedandno side effects from medication. Musculoskeletal PainReported by PatientHPIFor quality, patient reportsdull. For severity, patient reportspain level without meds 6/10. For duration, patient reportspresent <1 month. For timing, patient reportsintermittent. For location, (right sided rib pain).ROS as noted in the HPI Pt here for a lab f/u appt, he reports that he is still having some back pain. He has a new sore on his back that has come up since his last appt that he thinks has opened up, he is unable to sleep well. LAST APPT: Patient states that he has right sided rib pain. Patient has been seeing a chiropractor, Romeo Paige, and he was told that his ribs are popped out. Pt also says he is unable to get an erection and or care about sex. asking to have his hormones checked Umair Milton MD [address] [place], [address], KATHERIN Milton 12/27/2020 13:01:01 1 text/html Musculoskeletal PainReported by PatientHPIFor severity, patient reportsworsening,interfe rence with sleep, andinterference with work. For location, patient reportspain is not radiating(upper back). For duration, patient reportspresent for 1-6 months. For timing, patient reportsconstant. For context, patient reportsprior back problems. For alleviating factors, patient reportsrelieved by changing position. For aggravating factors, patient reportsmovement/position ingandtwisting. For associated symptoms, patient reportsno fever,no weak limbs,no tingling, andon incontinence. For adl (activities of daily living), patient reportsimprove with medication.ROS as noted in the HPI pt here with having upper back pain, behind my lungs no injury noted. having tingling in left hand. Umair Milton MD [address] [place], [address], KATHERIN Milton 02/01/2021 17:44:24 1 text/html Musculoskeletal PainReported by PatientHPIFor severity, patient reportsworsening,interfe rence with sleep, andinterference with work. For location, patient reportspain is not radiating(upper back). For duration, patient reportspresent for 1-6 months. For timing, patient reportsconstant. For context, patient reportsprior back problems. For alleviating factors, patient reportsrelieved by changing position. For aggravating factors, patient reportsmovement/position ingandtwisting. For associated symptoms, patient reportsno fever,no weak limbs,no tingling, andon incontinence. For adl (activities of daily living), patient reportsimprove with medication.ROS as noted in the HPI Pt here for 3 month f/u, he reports that he is doing well at this time. Denies any new issues, he says that he stopped his new med for BP due to SE. He says that he had heat intolerance[place], [address], KATHERIN Milton 03/01/2021 12:40:01 1 text/html Hypertension F/UReported by PatientHPIFor associated symptoms, patient reportsno dizziness,no lightheadedness,no chest pain,no shortness of breath,no palpitations,no edema, andno calf pain with exertion. For lifestyle, patient reportsregular exerciseandlimiting/avoi ding salt. For medications, patient reportstaking medications as directedandno side effects from medication. Diabetes F/UReported by PatientHPIFor labs, patient reportslast a1c result: 7.7. For context, patient reportsnormal range of home blood sugars (in the low 100s),seeing eye doctor regularly, andchecking feet regularly. For associated symptoms, patient reportsno weight gain,no weight loss,no dizziness,no sweats,no headaches,no confusion,no increased thirst,no increased appetite,no increased urination,no blurred vision,no numbness of feet, andno calluses on feet. AnemiaReported by PatientHPIFor severity, patient reportsmacrocytic (mcv>100). For timing, patient reportsbetter. For associated symptoms, patient reportsno shortness of breath,no chest pain,no abdominal pain,no nausea,no vomiting,no melena,no blood in stool,no weakness,no fatigue,no palpitations,no excessive sweating,normal nails,tolerant of cold,no nonfood cravings,no behavior problems,no symptoms of peripheral neuropathy,normal balance,no jaundice,no pallor, andno weight loss.ROS as noted in the HPI Patient is here for a check up and fasting lab. Patient wants to discuss stopping the ozempic because he says that it messes up his vision. Umair Milton MD [address] [place], [address], KATHERIN Milton 04/10/2021 13:37:37
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
--- OUTSIDE RECORDS SUMMARY | 2025-04-30 05:53 | XMS_ITS | Patient Health Record ---
Author Organization [facility] Address [address] [place] [address] Care Team Providers Care County Director Welfare Name Role Phone Yu Lee Primary Care Provider UnavailZE Earl Unavailable [phone] KAT MUELLER Unavailable [phone] PANDA HUIZAR Unavailable [phone] Allergies Allergen (clinical drug ingredient) Drug/Non Drug Allergy documented on EMR Reaction Allergy Type Onset Date Status pistachio nut allergenic extract Pistachio Nut (Diagnostic) Unknown Drug Allergy Active calcium channel angelita (FN) Calcium Channel Blockers Unknown Drug Allergy Active Results Component Value Reference Range Notes Urinalysis, Routine Reviewed date:10/08/2024 11:02:54 AM Interpretation: Performing Lab: Notes/Report: Urine-Color yellow Appearance clear Glucose 1+ Bilirubin - Ketones - Specific Guston 1.015 Occult Blood - pH 6.0 Urine Protein trace Urobilinogen,Semi-Qn - Nitrite, Urine - WBC Esterase - Urinalysis Gross Exam - Reason For Referral No Information Social History Tobacco Use: Social History Observation Description Date Details (start date - stop date) Never Smoker NA - NA Tobacco Control (Standard) Question Answer Notes Tobacco use: Nonsmoker Problems Problem Type SNOMED Code ICD Code Onset Dates Problem Status W/U Status Risk Notes Problem Disorder of kidney and/or ureter (830237201) Right renal mass (N28.89) Active confirmed Vital Signs Height-cm 180.34 cm 10/08/2024 Weight-kg 108.86 kg 10/08/2024 Height 71 in 10/08/2024 Weight 240 lbs 10/08/2024 BMI 33.47 kg/m2 10/08/2024 Encounters Encounter Location Date Provider Diagnosis [facility] [address] [place] [address] 10/08/2024 PANDA HUIZAR Right renal mass N28.89 [facility] [address] [place] [address] 09/27/2024 ZE MAHMOOD [facility] [address] [place] [address] 10/11/2024 PANDA HUIZAR [facility] [address] [place] [address] 10/21/2024 ZE MAHMOOD Assessments Encounter Date Diagnosis (ICD Code) Assessment Notes Treatment Notes Treatment Clinical Notes Section Notes 10/08/2024 Right renal mass (ICD-10 - N28.89) Reviewed ER records and CT images independantly as well as radiologic report. Pt has a heterogenous appearing, 3cm centralized renal mass looking very concerning for upper tract TCC based on imaging. Recommend ureteroscopy with biopsy. How procedure is performed was reviewed along with risks, benefits, and postprocedural expectations were reviewed. Pt is refusing biopsy. I explained my concern for malignancy and that the goal is to treat and catch while cure is still achievable and that if we just monitor, prognosis would be uncertain. He acknowledges this and accept risks. The only thing I could get him to agree to was a repeat CT with and without IV contrast and I'll him return for review and discussion with either Dr. Mueller or Dr. Mahmood. Plan Of Treatment Pending Test Test Name Order Date CT Abd & Pelvis W & [place] [id number] 10/08/2024 Blood Urea Nitrogen (BUN) 10/08/2024 Creatinine Serum 10/08/2024 Insurance Providers Payer Name Payer Address Payer Phone Subscriber Number Group Number Insured Name Patient Relationship to Insured Coverage Start Date Coverage End Date Luis [address] [place], [place] [id number] Ernie Plasencia Self - patient is the insured Medical (General) History Medical History History ICD Code Renal mass Hypertension Hx of stroke Surgical History Surgery Date(Month/Year) splenectomy left hip replacement left knee repair Hospitalization History Reason Date(Month/Year) Heart issues stroke
--- OUTSIDE RECORDS SUMMARY | 2025-04-30 05:54 | XMS_ITS | Clinical Summary ---
Author Organization [facility] Address [address] [place] [address] Phone Care Team Providers Care Ship Liner Name Role Phone Umair Milton MD Primary Care Provider [phone] Allergies No known active allergies Medications allopurinol (ZYLOPRIM) 300 mg tablet Take 300 mg by mouth 2 times daily . Active folic acid (FOLVITE) 1 mg tablet Take 1 mg by mouth daily hepatologist. Active niacin (NIACOR) 50 mg Tablet Take 50 mg by mouth daily at bedtime. Active cyclobenzaprine HCl (CYCLOBENZAPRINE ORAL)Indications: Status post total replacement of left hip,Postoperative heterotopic ossification of muscle Take by mouth. Active ibuprofen (MOTRIN) 800 mg tabletIndications :Status post total replacement of left hip,Postoperative heterotopic ossification of muscle Take 800 mg by mouth every 6 hours as needed for Pain, Mild. Active meloxicam (MOBIC) 15 mg tablet Take 1 Tablet (15 mg) by mouth daily. 30 Tablet 1 03/26/2018 Active Active Problems Problem Noted Date Diagnosed Date Deep incisional surgical site infection 06/21/20 17 Left patella arthroplasty 05/28/2017 Obesity (BMI 30.0-34.9) 05/19/2017 Elevated ALT measurement 05/19/2017 Hypercalcemia 05/19/2017 Elevated transaminase level 05/19/2017 Leukocytosis (leucocytosis) 05/19/2017 Status post total replacement of left hip 2016 KRYSTIAN on CPAP 01/10/2017 Preop general physical exam 01/10/2017 History of stroke with residual effects 01/11/20 17 Pyruvate kinase (PK) deficiency anemia 7 Hx of splenectomy 01/10/2017 Gout of multiple sites 01/10/2017 Elevated platelet count 01/10/2017 Type 2 diabetes mellitus wit hout complication, without long-term current use of insulin 01/10/2017 Diabetes mellitus Resolved Problems Problem Noted Date Diagnosed Date Resolved Date Primary osteoarthritis of left knee 05/19/2017 09/24/2017 Primary osteoarthritis of left hip 01/10/2017 05/19/2017 Family History Medical History Relation Name Comments Healthy Brother Gene Other Daughter Daija polycystic ovar aies Unknown Father Diabetes Mother Heart Disease Mother Stroke Mother Healthy Sister 1 Tarena Other Sister 2 Jacqui psyche issues Healthy Son 1 Devang Healthy Son 2 Jose E Relation Name Status Comments Brother Gene Alive Daughter Daija Alive Father (Age 73) Mother Alive Sister 1 Tarena Alive Sister 2 Jacqui Alive Son 1 Devang Alive Son 2 Jose E Alive Social History Tobacco Use Types Packs/Day Years Used Date Smoking Tobacco: Never Smokeless Tobacco: Never Alcohol Use Standard Drinks/Week Comments No 0 (1 standard drink = 0.6 oz pur e alcohol) Sex and Gender Information Value Date Recorded Sex Assigned at Not on file Legal Sex Male 4:01 PM CDT Gender Identity Not on file Sexual Orientation Not on file Last Filed Vital Signs Vital Sign Reading Time Taken Comments Blood Pressure 154/103 03/26/2018 11:30 AM CDT Pulse 94 03/26/2018 11:30 AM CDT Temperature 36.9 C (98.4 F) 09/18/2017 1:21 PM CRYPTOLOGIST Respiratory Rate 20 07/10/2017 1:10 PM CRYPTOLOGIST Oxygen Saturation 97% 07/10/2017 1:10 PM CRYPTOLOGIST Inhaled Oxygen Concentration - - Weight 111.1 kg (245 lb) 03/26/2018 11:30 AM CDT Height 180.3 cm (5' 11 ) 03/26/2018 11:30 AM CDT Body Mass Index 34.17 03/26/2018 11:30 AM CDT Plan of Treatment Health Maintenance Due Date Last Done Comments DIABETES ANNUAL FOOT EXAM 1985 DIABETES ANNUAL RETINAL EXAM 1985 DIABETES MICROALBUMIN ANNUAL SCREEN 1985 LDL CHOLESTEROL ANNUAL 1985 HEPATITIS B VACCINES (1 of 3 - 19+ 3-dose series) 07/05 COLORECTAL SCREENING 2012 Colorectal Cancer Screening 2012 FIT-DNA Q 3 years 2012 FIT/FOBT Q 1 year 2012 Flex Sig/CT Colonography Q 5 years 2012 DIABETES HBA1C Q 6 MONTHS 07/12/2017 01/10/2017 ZOSTER VACCINE (1 of 2) 2017 DTAP/TDAP/TD VACCINES (2 - Td or Tdap) 05/16/2024 INFLUENZA VACCINE (#1) 2025 Medical Devices Implanted Type Area Critical Care Registered Nurse Device Identifier Shelf Expiration Date Model / Serial / Lot Cup Pinn Sctr Series 56mm 1217-22-056 - [id number] Implanted:Qty: 1 on 02/07/2017 by Jeremy Coyne MD at [facility] Hip Left: Hip [employer] 12/01/2026 6 / / [id number] Hole Eliminator [place] 1246-03-000 - [id number] Implanted:Qty: 1 on 02/07/2017 by Jeremy Coyne MD at [facility] Hip Left: Hip [employer] 09/03/2026 0 / / [id number] Stem Fem Actis Hi Colr Sz5 1010-12-050 - [id number] Implanted:Qty: 1 on 02/07/2017 by Jeremy Coyne MD at [facility] Hip Left: Hip [employer] 11/01/2025 1010-07-08 0 / / [id number] Head Fem Art/Carlos Cer Sz36 1365-36-320 - [id number] Implanted:Qty: 1 on 02/07/2017 by Jeremy Coyne MD at [facility] Hip Left: Hip [employer] 11/01/2021 1365-36-3 2 0 / / [id number] Liner Pinn Altrx Poly 1221-36-056 - [id number] Implanted:Qty: 1 on 02/07/2017 by Jeremy Coyne MD at [facility] Hip Left: Hip [employer] 11/01/2021 6 / / [id number] Procedures Procedure Name Priority Date/Time Associated Diagnosis Comments HEMOGLOBIN A1C Routine 01/10/2017 11:10 AM CDT from Last 3 Months or Most Recently Relevant to Health Maintenance Results * (ABNORMAL) HEMOGLOBIN A1C (01/10/2017 11:10 AM CDT) HEMOGLOBIN A1C 6.3(H) 4.0 - 6.0 % 01/10/2017 11:53 AM CDT [facility] EST. AVG GLUCOSE, A1C 134 mg/dL 01/10/2017 11:53 AM CDT [facility] Blood Collection / Unknown 01/10/2017 11:10 AM CDT 01/10/2017 11:37 AM CDT us Vipin [place] MD CHEMISTRY ORDERABLES Final Resu lt [facility] CLIA #[id number] [address] [place], [place] [address] from Last 3 Months or Most Recently Relevant to Health Maintenance Insurance [employer] LOCAL Advance Directives For more information, please contact: [phone] * Full Code (Latest Code Status on File) Date Activated Date Inactivated Comments 06/21/2017 9:49 AM 06/24/2017 5:45 PM * Full Code Date Activated Date Inactivated Comments 06/20/2017 1:50 PM 06/21/2017 9:49 AM * Full Code Date Activated Date Inactivated Comments 05/28/2017 12:57 PM 05/29/2017 12:55 PM * Full Code Date Activated Date Inactivated Comments 05/28/2017 7:36 AM 05/28/2017 12:57 PM * Full Code Date Activated Date Inactivated Comments 02/07/2017 11:47 AM 02/08/2017 3:55 PM Care Teams Ship Liner Relationship Specialty Start Date End Date Umair Milton MD [address] [place] [address] KATHERIN CRESPO [id number] PCP - General Clinical Documentation Improvement Specialist 02/07/17
--- OUTSIDE RECORDS SUMMARY | 2025-04-30 05:54 | XMS_ITS | Clinical Summary ---
Author Organization [facility] Address [address] [facility] Attn: Epic Prelude ADT [place] [id number] Care Team Providers Care Air Analysis Engineering Technician Name Role Phone Umair Milton MD Primary Care Provider [phone] Allergies No known active allergies Medications cyclobenzaprine HCl (CYCLOBENZAPRINE ORAL)Indications: Status post total replacement of left hip,Postoperative heterotopic ossification of muscle Take by mouth. 03/26/2018 Active ibuprofen (MOTRIN) 800 mg tabletIndications :Status post total replacement of left hip,Postoperative heterotopic ossification of muscle Take 800 mg by mouth every 6 hours as needed for Pain, Mild. 03/26/2018 Active meloxicam (MOBIC) 15 mg tablet Take 1 Tablet (15 mg) by mouth daily. 30 Tablet 1 03/26/2018 Active niacin (NIACOR) 50 mg Tablet Take 50 mg by mouth daily at bedtime. 05/28/2017 Active allopurinoL (ZYLOPRIM) 300 mg tablet Take 300 mg by mouth 2 times daily . 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 05/16/2017 Active predniSONE (DELTASONE) 20 mg tablet Take 60 mg daily x 3 days, then take 40 mg daily x 2 days, then take 20 mg daily x 3 days, then take 1/2 tab daily x 3 phan 18 Tablet 10/18/2023 Active Active Problems Problem Noted Date Diagnosed Date Deep incisional surgical site infection 06/21/20 17 Left patella arthroplasty 05/28/2017 Obesity (BMI 30.0-34.9) 05/19/2017 Elevated ALT measurement 05/19/2017 Hypercalcemia 05/19/2017 Elevated transaminase level 05/19/2017 Leukocytosis (leucocytosis) 05/19/2017 Status post total replacement of left hip 2016 KRYSTIAN on CPAP 01/10/2017 History of stroke with residual effects 01/11/20 17 Hx of splenectomy 01/10/2017 Gout of multiple sites 01/10/2017 Elevated platelet count 01/10/2017 Preop general physical exam 01/10/2017 Pyruvate kinase (PK) deficiency anemia 7 Type 2 diabetes mellitus wit hout complication, [...] Diabetes Mother Heart Disease Mother Stroke Mother Other Sister 1 Jacqui psyche issues Healthy Sister 2 Tarena Healthy Son 1 Devang Healthy Son 2 Jose E Relation Name Status Comments Brother Gene Alive Daughter Daija Alive Father (Age 73) Mother Alive Sister 1 Jacqui Alive Sister 2 Tarena Alive Son 1 Devang Alive Son 2 Jose E Alive Social History Tobacco Use Types Packs/Day Years Used Date Smoking Tobacco: Never Smokeless Tobacco: Never Alcohol Use Standard Drinks/Week Comments No 0 (1 standard drink = 0.6 oz pur e alcohol) Sex and Gender Information Value Date Recorded Sex Assigned at Not on file Legal 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 Gender Identity Not on file Sexual Orientation Not on file Last Filed Vital Signs Vital Sign Reading Time Taken Comments Blood Pressure 162/79 10/18/2023 3:20 PM CDT Pulse 99 10/18/2023 3:20 PM CDT Temperature 37 C (98.6 F) 10/18/2023 3:20 PM CDT Respiratory Rate 19 10/18/2023 3:20 PM CDT Oxygen Saturation 98% 10/18/2023 3:20 PM CDT Inhaled Oxygen Concentration - - Weight 111.1 kg (245 lb) 10/18/2023 3:20 PM CDT Height 180.3 cm (5' 11 ) 10/18/2023 3:20 PM CDT Body Mass Index 34.17 10/18/2023 3:20 PM CDT Plan of Treatment Health Maintenance Due Date Last Done Comments DIABETES ANNUAL FOOT EXAM 1985 DIABETES ANNUAL RETINAL EXAM 1985 DIABETES MICROALBUMIN ANNUAL SCREEN 1985 LDL CHOLESTEROL ANNUAL 1985 HEPATITIS B VACCINES (1 of 3 - 19+ 3-dose series) 1986 FIT-DNA Q 3 years 2012 FIT/FOBT Q 1 year 2012 Flex Sig/CT Colonography Q 5 years 2012 DIABETES HBA1C Q 6 MONTHS 07/12/2017 01/10/2017, 04/2017 ZOSTER VACCINE (1 of 2) 2017 DTAP/TDAP/TD VACCINES (2 - Td or Tdap) 05/16/2024 COLORECTAL SCREENING 01/06/2025 01/06/2015 Colorectal Cancer Screening 01/06/2025 INFLUENZA VACCINE (#1) 2025 Medical Devices Implanted Type Area Director Non Profit Device Identifier Shelf Expiration Date Model / Serial / Lot Cup Pinn Sctr Series 56mm 1217-22-056 - [id number] Implanted:Qty: 1 on 02/07/2017 by Jeremy Coyne MD Hip Left: Hip [employer] 12/01/2026 6 / / [id number] Head Fem Art/Carlos Cer Sz36 1365-36-320 - [id number] Implanted:Qty: 1 on 02/07/2017 by Jeremy Coyne MD Hip Left: Hip [employer] 11/01/2021 1365-36- 32 0 / / [id number] Hole Eliminator Plover 1246-03-000 - [id number] Implanted:Qty: 1 on 02/07/2017 by Jeremy Coyne MD Hip Left: Hip [employer] 09/03/2026 0 / / [id number] Liner Pinn Altrx Poly 1221-36-056 - [id number] Implanted:Qty: 1 on 02/07/2017 by Jeremy Coyne MD Hip Left: Hip [employer] 11/01/2021 6 / / [id number] Stem Fem Actis Hi Colr Sz5 1010-12-050 - [id number] Implanted:Qty: 1 on 02/07/2017 by Jeremy Coyne MD Hip Left: Hip [employer] 11/01/2025 1010-07-08 0 / / [id number] Procedures Procedure Name Priority Date/Time Associated Diagnosis Comments HEMOGLOBIN A1C Routine 01/10/2017 11:10 AM CDT from Last 3 Months or Most Recently Relevant to Health Maintenance Results * (ABNORMAL) HEMOGLOBIN A1C (01/10/2017 11:10 AM CDT) HEMOGLOBIN A1C 6.3(H) 4.0 - 6.0 % 01/10/2017 11:53 AM CDT [facility] EST. AVG GLUCOSE, A1C 134 mg/dL 01/10/2017 11:53 AM CDT [facility] Blood Collection / Unknown 01/10/2017 11:10 AM CDT 01/10/2017 11:37 AM CDT us Vipin Reddy MD CHEMISTRY ORDERABLES Final Resu lt [facility] #[id number] [address] [id number] [facility] #[id number] [address] [id number] from Last 3 Months or Most Recently Relevant to Health Maintenance Insurance [facility] OPTIONS PPO [id number] CHOICE PLUS * Guarantor: ERNIE GARCIA Account Type Relation to Patient Date of Phone Billing Address Personal/Family [address] [address] Care Teams Air Analysis Engineering Technician Relationship Specialty Start Date End Date Umair Milton MD [address] [address] [place] [id number] PCP - General Welding Rod Coater 02/07/17
[2025-04-30 06:09] LABS: ABG PH Result 7.20 (7.35-7.45); Alveolar-Arterial Oxygen Gradi 65.2 mmHg (5-10); Arterial Blood Gas Hematocrit 25.3 % (42-52); Blood Gas Allen Test Pos; Blood Gas LPM 15.0 %; Blood Gas Operator Identificat gerca; Blood Gas Sample Site Radial, right; Blood Gas Sample Type Arterial; Carboxyhemoglobin 3.3 %THgb (0.4-20.1); Glucose Level-ABG 379.0 mg/dL (70-115); HCO3 ABG 24.5 mmol/L (22-26); Ionized Calcium Level - ABG 1.3 mmol/L (1.1-1.4); Methemoglobin 0.1 % (0.4-1.5); Oxygen Saturation ABG > 99.1; PO2 ABG 135.0 mmHg (80.0-100.0); PO2 FiO2 Ratio Arterial Blood 135; Potassium Level - ABG 4.7 mmol/L (3.5-5.0); Sodium Level - ABG 143.0 mmol/L (131-143)
--- NOTE | 2025-04-30 06:14 | XRR_ITS ---
PROCEDURE INFORMATION: Exam: XR Chest Exam date and time: 04/30/2025 6:16 AM Age: 59 years old Clinical indication: Shortness of breath; Chest pressure; Prior surgery; Surgery date: 6+ months; Surgery type: Splenectomy; C/O chest pain with SOB. History of copd. TECHNIQUE: Imaging protocol: Radiologic exam of the chest. Views: 1 view. COMPARISON: CR XR chest 1V portable [id number] 10/25/2024 7:09 AM FINDINGS: Lungs: Vascular engorgement with interstitial and mild alveolar edema. A superimposed pneumonia on the right side could be present. Pleural spaces: Unremarkable. No pleural effusion. No pneumothorax. Heart/Mediastinum: See Vasculature finding. Vasculature: Mild cardiomegaly and uncoiling of the thoracic aorta. Bones/joints: Unremarkable. XR/XR chest 1V portable [id number] IMPRESSION: Mild developing infiltrates.
[2025-04-30 06:18] LABS: Hematocrit 26.0 % (37-53); Hemoglobin 7.90 g/dL (11.27-16.99); Mean Corpuscular HGB Conc 30.4 g/dL (30-55); Mean Corpuscular Hemoglobin 34.1 pg (27-33); Mean Corpuscular Volume 112.1 fl (82-101); Nucleated Red Blood Cells % 0.9 %; Platelet Count 508 10^3/cmm (157-399); Red Blood Count 2.32 10^6/uL (3.85-5.65); White Blood Count 24.49 10^3/uL (3.29-11.43)
[2025-04-30 06:29] LABS: Troponin(5th) Baseline 51 ng/L (0-15)
[2025-04-30 06:32] LABS: Lactic Sepsis W/Reflex 2.2 mmol/L (0.5-2.2)
[2025-04-30] MEDS: morphine 4 mg/mL SDV 1 mL IVP (06:37)
[2025-04-30 06:46] LABS: Alanine Aminotransferase 17 U/L (0-41); Albumin Level 4.1 g/dL (3.5-5.2); Alkaline Phosphatase 98 U/L (40-130); Anion Gap 17.6 (5-19); Aspartate Amino Transferase 16 U/L (0-40); Blood Urea Nitrogen 42 mg/dL (6-20); Calcium 9.6 mg/dL (8.5-10.5); Carbon Dioxide 24 mmol/L (22-29); Chloride 103 mmol/L (98-107); Globulin 3.2 g/dL (1.3-4.6); Glucose 386 mg/dL (65-115); NT Pro B Type Natriuretic Pept 2276 pg/mL (0-125); Osmolality Calculated 316 mOsm/kg (285-295); Potassium 4.6 mmol/L (3.5-5.1); Sodium 140 mmol/L (136-145); Total Protein 7.3 g/dL (6.6-8.7)
[2025-04-30 06:49] LABS: Creatinine Clr Calc Pharmacy 50.1988
--- NOTE | 2025-04-30 07:02 | CTR_ITS ---
PROCEDURE INFORMATION: Exam: CT Chest Without Contrast; Diagnostic Exam date and time: 04/30/2025 7:34 AM Age: 59 years old Clinical indication: Abdominal pain; Localized; Upper; Chest pressure; Prior surgery; Surgery date: 6+ months; Surgery type: Left hip; Additional info: Chest pain, elevated ddimer TECHNIQUE: Imaging protocol: Diagnostic computed tomography of the chest without contrast. Radiation optimization: All CT scans at this facility use at least one of these dose optimization techniques: automated exposure control; mA and/or kV adjustment per patient size (includes targeted exams where dose is matched to clinical indication); or iterative reconstruction. COMPARISON: CR (CHEST, ) 04/30/2025 6:16 AM RADIATION DOSE METRICS: Total DLP (mGy-cm): 1295.84 FINDINGS: Lungs: Scattered semi-solid and solid bilateral pulmonary infiltrates. Multifocal pneumonia is present. Coexisting masses are not excluded. Follow-up chest CT in 3 months recommended. Pleural spaces: Trace pleural effusions. Heart: Unremarkable. No cardiomegaly. No pericardial effusion. Coronary arteries: Coronary artery calcifications. Lymph nodes: Visible central lymph nodes are not pathologically enlarged. Vasculature: Unremarkable. No aortic aneurysm. Bones/joints: Unremarkable. No acute fracture. Soft tissues: Unremarkable. PROCEDURE INFORMATION: Exam: CT Abdomen And Pelvis Without Contrast Exam date and time: 04/30/2025 7:34 AM Age: 59 years old Clinical indication: Abdominal pain; Localized; Upper; Chest pressure; Prior surgery; Surgery date: 6+ months; Surgery type: Left hip; Additional info: Chest pain, elevated ddimer TECHNIQUE: Imaging protocol: Computed tomography of the abdomen and pelvis without contrast. Radiation optimization: All CT scans at this facility use at least one of these dose optimization techniques: automated exposure control; mA and/or kV adjustment per patient size (includes targeted exams where dose is matched to clinical indication); or iterative reconstruction. COMPARISON: CT abdomen pelvis w con* [id number] 09/13/2024 8:14 PM RADIATION DOSE METRICS: Total DLP (mGy-cm): 1295.84 FINDINGS: Liver: Normal. No mass. Gallbladder and biliary ducts: Cholelithiasis. Pancreas: Normal. No ductal dilation. Spleen: Splenectomy. Adrenal glands: Normal. No mass. Kidneys and ureters: Stable 3.3 cm mass or cyst in the right renal pelvis. Ultrasound or MRI recommended to evaluate whether this is a mass or complex cyst. Stomach and bowel: Unremarkable. No obstruction. No mucosal thickening. Appendix: No evidence of appendicitis. Intraperitoneal space: Unremarkable. No free air. No significant fluid collection. Vasculature: Unremarkable. No abdominal aortic aneurysm. Lymph nodes: Unremarkable. No enlarged lymph nodes. Urinary bladder: Unremarkable as visualized. Reproductive: Unremarkable as visualized. Bones/joints: Left hip replacement. Soft tissues: Unremarkable. CT/[place] [id number] IMPRESSION: Multifocal pneumonia with masslike confluent areas. Follow-up chest CT in 3 months recommended. IMPRESSION: 1. Ultrasound or MRI of the kidneys recommended to evaluate whether a cyst or mass is present within the right renal pelvis. 2. Cholelithiasis. COMMENTS: Consistent with the [place] [employer]'s Incidental Findings Committee white paper (J Am Francis Radiol 2018): Any incidental renal lesion less than 1 cm or classified as too small to characterize, or any incidental cystic renal lesion characterized as simple-appearing, is likely benign. No follow-up imaging is recommended for these lesions per consensus recommendations based on imaging criteria.
[2025-04-30 07:05] LABS: ABG PCO2 62.6 mmHg (35-45)
--- NOTE | 2025-04-30 07:26 | PC.NURSE ---
pt went to CT on BiPAP with respiratory @0760
[2025-04-30 07:38] LABS: Ketone (Acetest) Serum Negative (Negative)
[2025-04-30 07:45] LABS: Reflex Lactate Order REFLEX LACTIC ORDERD
--- NOTE | 2025-04-30 08:03 | USR_ITS ---
PROCEDURE INFORMATION: Exam: US Retroperitoneal, Complete, Kidneys and Bladder Exam date and time: 04/30/2025 8:12 AM Age: 59 years old Clinical indication: Abnormal findings; Abnormal radiologic finding of the abdomen; Radiologic exam and body structure: CT RT kidney; Additional info: Mass vs cyst on CT TECHNIQUE: Imaging protocol: Real-time ultrasound of the retroperitoneum with image documentation. Complete exam focused on the bilateral kidneys and urinary bladder. COMPARISON: US abdomen limited [id number] 10/24/2024 6:29 PM FINDINGS: Right kidney: There is a 3.1 x 2.8 x 2.5 cm fairly homogeneously hyperechoic structure in the right renal pelvis. The abnormal area on CT is solid. Exactly what this represents is uncertain. MR is recommended as that should give additional information. Left kidney: Normal. No stones. No hydronephrosis. 15 mm cyst. Urinary bladder: Unremarkable. US/US renal BI* [id number] IMPRESSION: 3.1 cm solid mass in the right renal pelvis. MRI recommended for further evaluation.
--- NOTE | 2025-04-30 08:07 | ECG_ITS ---
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
[2025-04-30 08:16] LABS: Troponin 5 2HR 76.76 ng/L (0-15)
[2025-04-30 08:22] LABS: Troponin 5 2HR Delta 25.76 ABS# (0-10)
[2025-04-30] MEDS: linezolid premix 600 MG/300 ML PREMIX 300 MG IV (08:39)
--- NOTE | 2025-04-30 08:45 | PC.NURSE ---
per Dr. Angulo to hold heparin bolus and heparin gtt until hospitalist can evaluate patient and heparin order.
--- NOTE | 2025-04-30 08:47 | USR_ITS ---
PROCEDURE INFORMATION: Exam: US Duplex Lower Extremity Veins, Bilateral Exam date and time: 04/30/2025 10:54 AM Age: 59 years old Clinical indication: Edema, localized; Lower extremity, bilateral; Additional info: Bilateral lower extremity pain and swelling. TECHNIQUE: Imaging protocol: Real-time duplex ultrasound of the bilateral extremities with 2-D garcia scale, color Doppler flow and spectral waveform analysis including responses to compression and other maneuvers (when performed) with image documentation. Complete exam focused on the lower extremity veins. COMPARISON: US renal BI* [id number] 04/30/2025 8:12 AM FINDINGS: Right deep veins: Unremarkable. The common femoral, femoral, proximal profunda femoral, popliteal, posterior tibial and peroneal veins are patent without thrombus. Normal Doppler waveforms. Normal compressibility and/or augmentation response. Left deep veins: Unremarkable. The common femoral, femoral, proximal profunda femoral, popliteal, posterior tibial and peroneal veins are patent without thrombus. Normal Doppler waveforms. Normal compressibility and/or augmentation response. Superficial veins: Greater saphenous veins at the saphenofemoral junctions are patent bilaterally without thrombus. Soft tissues: Unremarkable. US/[place] [id number] IMPRESSION: No sonographic evidence of deep venous thrombosis.
[2025-04-30 09:00] LABS: Lactic Acid level (Lactate) 1.1 mmol/L (0.5-2.2)
[2025-04-30] MEDS: heparin drip 25,000 UNIT/500 ML PREMIX 24 UNIT IV (11:03)
[2025-04-30] MEDS: heparin 5,000 unit/mL INJ 1 mL IVP ×3 (11:05→22:29)
[2025-04-30] MEDS: metoprolol tartrate 1 mg/1 mL SDV 5 mL 5 MG IVP (11:10)
[2025-04-30] MEDS: nitroglycerin 1 gm/inch oint Pkt 1 INCH TOPICAL ×3 (11:10→22:28)
--- NOTE | 2025-04-30 11:12 | P.HP_ITS ---
Providers/Chief Complaint 2 Admitting Physician: Boogie Griffith MD Primary Care Provider: Yu Lee APN Chief Complaint: chest pain History of Present Illness Ernie Plasencia is a 59 year old male with obesity on CPAP at home settings of 12 or 13 states that he felt fine yesterday but after having a salad and thinking he had gas he will woke this morning and could not breathe. Came to the emergency department found to have blood pressure [id number], acute kidney injury and bilateral pulmonary infiltrates and cardiomegaly suspicious for heart failure but radiologist reads developing infiltrates. CT scan read as multifocal infiltrates and therefore patient was started on meropenem and linezolid. Patient tells me that he felt fine yesterday but does admit that in the last few days he has had times checking his blood pressure where heart rate is 170s and then quickly returns back to normal. He states that last year he took a dose of niacin and had A-fib before. Looking at EKGs he has had a flutter 12/18/2023 SVT 12/18/2023 heart rate 169. Patient has been reluctant to take medications and secluding did not get vaccinated despite splenectomy for hypersplenism, treatment for hypertension and SVT despite recurrent hypertension and a flutter in the past. Today his baseline troponin 50 tigist to 70. Review of Systems 2 Narrative: General No fevers chills has had some weight loss Cardiovascular positive for chest pain positive for hypertension episodes of tachycardia as well. Denies leg edema Respiratory negative for cough shortness of breath at rest but he does have dyspnea on exertion. 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 he has occasional nosebleeds last about 2 to 3 minutes stop spontaneously Malignancy history negative Medications/Allergies Home Medications ?Medication ?Instructions ?Recorded ?Confirmed ?Last Taken ?Type ketorolac 10 mg tablet 10 mg PO Q8H PRN pain #10 ta bs 04/28/25 04/30/25 Unknown Rx Allergies Allergy/AdvReac Type Severity Reaction Status Date / Time Calcium Channel Blocking Allergy Unknown Verified 04/28/25 14:51 Agent Dilt PFSH Acute 2 PFSH: Medical History (Updated 04/30/25 @ 11:34 by Boogie Griffith MD) Mass of right kidney Type 2 diabetes mellitus Noncompliance NSTEMI (non-ST elevated myocardial infarction) Acute hypercapnic respiratory failure Obstructive sleep apnea Attention deficit disorder Type 2 diabetes mellitus Sepsis Erectile disorder due to medical condition in male Cardiac left ventricular ejection fraction greater than or equal to 40 percent Actinic keratosis Seborrheic keratosis Pyruvate kinase (PK) deficiency anemia On continuous oral anticoagulation Recurrent cerebrovascular accidents (CVAs) Paroxysmal atrial fibrillation with rapid ventricular response Atrial flutter Acute kidney injury Macrocytic anemia Leukocytosis Febrile Leg pain, left Tick bite Basilar artery stenosis Vertebrobasilar ischemia Hyperlipidemia Gout Hx of ischemic vertebrobasilar artery brainstem stroke (2012) Hypertension Surgical History (Updated 04/30/25 @ 11:37 by Boogie Griffith MD) Post-splenectomy History of colonoscopy (2014) History of bone marrow biopsy (01/07/14) Bone marrow aspiration and biopsy at [facility] H/O knee surgery Left knee cap repair - [facility] [place] - Dr. 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 Daughter Anesthesia complication Mother Cancer Lung Other Diabetes Hyperlipidemia Hypertension Stroke Denies family history of CAD (coronary artery disease) Clotting disorder Dementia Psychiatric illness Chronic kidney disease (CKD) Suicide Bleeding disorder Lung disease Social History (Updated 04/30/25 @ 11:26 by Boogie Griffith MD) Smoking and tobacco/nicotine status: never used tobacco/nicotine Alcohol intake: never Substance/Drug Use: never Additional social history: Patient wants full code as discussed today with Boogie Griffith MD on 04/30/2025. His next of kin is daughter Daija. 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 He also helps his own kids running errands etc. they are ages 37, 35 and 27. He states he is not as active after his stroke service: Yes Current occupation: [employer] Vitals/I&O/Wt Last Vital Signs Temp 98.5 F 04/30/25 05:56 Pulse 99 04/30/25 09:25 Resp 17 04/30/25 08:46 BP 194/101 04/30/25 09:25 Pulse Ox 93 04/30/25 09:25 O2 Del Method Mechanical Ventilation 04/30/25 09:15 O2 Flow Rate 3 04/30/25 08:46 FiO2 40 04/30/25 09:23 Weight last 48 hrs Weight 113 kg Weight 115.666 kg Physical Exam 2 Narrative: General well-developed well-nourished obese male on BiPAP. Removing BiPAP patient was placed on nasal cannula O2 and is still comfortable at his blood pressure started to rise and he reported chest discomfort CV regular rate and rhythm Lungs clear to auscultation bilaterally Abdomen positive bowel tones soft nontender Calves 2+ bilateral pretibial edema Data 04/30/25 05:52 04/30/25 05:52 Micro: Microbiology 04/30/25 08:36 Blood Culture - Preliminary Blood SPECIMEN COLLECTED 04/30/25 08:38 Blood Culture - Preliminary Blood SPECIMEN COLLECTED A&P Assessment and plan 1. NSTEMI (non-ST elevated myocardial infarction): Patient with untreated hypertension and poorly controlled diabetes. He has active chest pain. Have started him on heparin. Troponin 50 tigist to 70. Blood pressures [id number] at 194/101 heart rate 99. It sounds like he is also had A-fib flutter episodes at home. I discussed with him need to treat hypertension to prevent cardiovascular disease, LVH and potentially hemorrhagic stroke. Patient is in agreement to start treatment with beta-angelita. He states he is allergic to calcium channel angelita 2. Paroxysmal atrial fibrillation with rapid ventricular response: As above. Add magnesium level. Will give 2 g of magnesium as he has tend to run low in the past 3. Acute hypercapnic respiratory failure: Continue with BiPAP. Patient has been underlying sleep apnea 4. Accelerated hypertension: Due to uncontrolled diabetes untreated hypertension now NSTEMI and fluid overload with A-fib flutter episodes based on history 5. Obstructive sleep apnea: Home CPAP 13 cm. He is treated with BiPAP here 6. Multifocal pneumonia: Chest x-ray suspicious for heart failure but CT scan read as multifocal pneumonia. Will treat with Levaquin. Will order viral panel. If viral panel is positive we will stop Levaquin. 7. Acute kidney injury: Will give single dose of furosemide 20 mg IV 8. CHF exacerbation: As above 9. Noncompliance: Patient is counseled and will require additional counts 10. Pyruvate kinase (PK) deficiency anemia: As above 11. Mass of right kidney: This has been 3.3 cm for greater than 6 months. Will discuss with patient prior to discharge 12. Post-splenectomy: Noted patient has declined vaccines in the past PDMP PDMP Reviewed: Not Reviewed Attestations 2 Medical Necessity Statement*: Patient admitted to the hospitalist hypercapnic respiratory failure and will require greater than 2 midnights in the hospital. Coding Level of Care Code Critical Care >/= 30 minutes Diagnoses NSTEMI (non-ST elevated myocardial infarction) I21.4 Paroxysmal atrial fibrillation with rapid ventricular response I48.0 Acute hypercapnic respiratory failure J96.02 Accelerated hypertension I10 Obstructive sleep apnea G47.33 Multifocal pneumonia J18.8 Acute kidney injury N17.9 CHF exacerbation I50.9 Noncompliance Z91.199 Pyruvate kinase (PK) deficiency anemia D55.21 Mass of right kidney N28.89 Post-splenectomy Z90.81 Time Spent (min) 70
--- NOTE | 2025-04-30 11:14 | USCV_ITS ---
Ernie lPasencia Age: 59 Gender: M : 1965 Exam Date: 04/30/2025 11:37 Ordering Phys: Boogie Griffith MD Technologist: Serafin Millard Exam Location: [facility] – [place] Indication: NSTEMI BP: 0 / 101 HR: 78 Rhythm: Sinus Technical Quality: Adequate MEASUREMENTS (Male / Female) Normal Values 2D ECHO LV Diastolic Diameter PLAX 5.8 cm 4.2 - 5.9 / 3.9 - 5.3 cm IVS Diastolic Thickness 1.2 cm 0.6 - 1.0 / 0.6 - 0.9 cm IVS Systolic Thickness 1.3 cm LVPW Diastolic Thickness 1.3 cm 0.6 - 1.0 / 0.6 - 0.9 cm LVPW Systolic Thickness 1.8 cm LVOT Diameter 2.0 cm LV Ejection Fraction 2D Teich 51.5 % LV Ejection Fraction MOD 4C 45.8 % LV Ejection Fraction MOD 2C 41.9 % LV Ejection Fraction 2C AL 41.2 % LA Diameter 3.8 cm RA Systolic Volume 4C AL 49.6 ml RA Systolic Volume 4C MOD 46.8 ml LA Sys Volume AL 87.3 cm cubed LA Sys Volume Index AL 36.1 cm cubed/m squared Aorta at Sinotubular Diameter 2.8 cm IVC Diameter 2.0 cm M-MODE LA Ao Ratio MM 1.1 AV Cusp Separation MM 1.9 cm DOPPLER AV Peak Velocity 138.0 cm/s LVOT Peak Velocity 87.0 cm/s AV Area Cont Eq vti 2.0 cm squared AV Area Cont Eq pk 2.1 cm squared MV Peak Velocity 141.0 cm/s MV Area PHT 5.8 cm squared Mitral E to A Ratio 1.5 TR Peak Velocity 306.0 cm/s TR Peak Gradient 37.5 mmHg TR Mean Velocity 218.0 cm/s TR Mean Gradient 20.9 mmHg TR Velocity Time Integral 93.2 cm PV Peak Velocity 81.0 cm/s RV Ejection Time 0.3 s FINDINGS Left Ventricle Mildly increased left ventricular cavity size. Moderately decreased left ventricular systolic function. Left ventricular ejection fraction is estimated at 40 %. Global left ventricular hypokinesis. Grade II/IV diastolic dysfunction, moderately elevated filling pressures. Right Ventricle The right ventricle is normal in size and function. Right Atrium The right atrium is normal in size. Left Atrium The left atrium is normal in size. Mitral Valve Moderately thickened mitral valve. No mitral valve stenosis. Mild mitral valve regurgitation. Aortic Valve Moderate aortic valve calcification. Mild aortic valve stenosis, mean gradient 3.8 mmHg, HERI 2 cm squared. Trace aortic valve regurgitation. Tricuspid Valve Structurally normal tricuspid valve without significant stenosis or regurgitation. Pulmonary artery systolic pressure is normal. Pulmonic Valve Structurally normal pulmonic valve without significant stenosis. There is no pulmonic regurgitation. Pericardium Normal pericardium without effusion. Aorta Normal ascending aorta dimension. IVC Moderately dilated IVC. CONCLUSIONS Mildly increased left ventricular cavity size. Moderately decreased left ventricular systolic function. Left ventricular ejection fraction is estimated at 40 %. Global left ventricular hypokinesis. Grade II/IV diastolic dysfunction, moderately elevated filling pressures. Moderate aortic valve calcification. Mild aortic valve stenosis, mean gradient 3.8 mmHg, HERI 2 cm squared. Trace aortic valve regurgitation. Moderately thickened mitral valve. No mitral valve stenosis. Mild mitral valve regurgitation. There is no pericardial effusion. Right atrial pressure is around 20 mm of mercury. Philomena Espinal MD (Electronically Signed) Final Date: 30 April 2025 20:42 S
[2025-04-30] MEDS: levofloxacin-dextrose 5 % 750 MG/150 ML PREMIX 100 MG IV (11:16)
[2025-04-30] MEDS: pantoprazole 40 mg SDV IVP (11:28)
[2025-04-30] MEDS: metoprolol succinate ER (24 HR) 50 mg Tablet PO (11:28)
[2025-04-30 12:41] LABS: Troponin 5 6HR 90.48 ng/L (0-15)
[2025-04-30 12:45] LABS: Troponin 5 6HR Delta 39.48 ng/L (0-12)
[2025-04-30] MEDS: FUROsemide 10 mg/mL SDV 2mL 20 MG IVP (12:45)
[2025-04-30] MEDS: magnesium sulfate premix 2 GM/50 ML PIGGYBACK IV (12:46)
--- NOTE | 2025-04-30 12:55 | ECG_ITS ---
[facility] Date: 2025-04-30 Pat Name: Ernie Plasencia Department: Room: ICU02 Gender: Male Tube Turner: : 1965 Requested By: Rosie Gutierrez Order Number: [id number] Melina MD: SAM VOGT Measurements Intervals Ayden Rate: 82 P: 34 CA: 164 QRS: 46 QRSD: 100 T: 81 QT: 342 QTc: 401 Interpretive Statements SINUS RHYTHM NONSPECIFIC ST & T-WAVE ABNORMALITY Compared to ECG 04/30/2025 08:07:56 No significant changes Electronically Signed On 04-30-2025 21:38:00 CDT by SAM VOGT [email or web address]
[2025-04-30 12:59] LABS: Magnesium 1.8 mg/dL (1.7-2.3)
[2025-04-30] MEDS: hyDRALAzine 20 mg/mL INJ 1 mL 10 MG IVP (13:43)
[2025-04-30] MEDS: morphine 4 mg/mL SDV 1 mL 2 MG IVP ×2 (14:28→19:41)
--- NOTE | 2025-04-30 15:15 | PC.NURSE ---
admit from er on bipap tropinins elevated iv antibiotics started has some short of breath without bipap heparin bolus 5000 given per doctor order not from protocal and hepain gtt started [address] coates family here questioning about status ,daughter questioning all events of pnemonia , glendy, nonstemi, and hyperglycemia , explained at length in pt presence and given lab results, pt blood pressure remains elevated thought shift given ntg paste and iv medication reduce, morphine given as pt stated chest pressure and flushing all over
[2025-04-30 16:35] LABS: Partial Thromboplastin Time 35.1 SECONDS (23.9-36.7)
[2025-04-30 16:44] LABS: Coronavirus 229E,HKU1,NL63,OC4 Not Detected (NOT DETECT); Parainfluenza Virus Type 1 Not Detected (NOT DETECT); Parainfluenza Virus Type 2 Not Detected (NOT DETECT); Parainfluenza Virus Type 3 Not Detected (NOT DETECT); Parainfluenza Virus Type 4 Not Detected (NOT DETECT); SARS-COV-2 Not Detected (NOT DETECT)
[2025-04-30 17:28] LABS: Troponin T (5th) Once 98 ng/L (0-15)
[2025-04-30 22:07] LABS: Partial Thromboplastin Time 44.6 SECONDS (23.9-36.7)
[2025-05-01] VITALS (34 sets, daily range): BP systolic 138–175; BP diastolic 58–92; PULSE 61–81; RESP 12–33; TEMP 36.4–36.9; O2SAT 90–99
[2025-05-01] MEDS: nitroglycerin 1 gm/inch oint Pkt 1 INCH TOPICAL (05:27)
[2025-05-01] MEDS: heparin drip 25,000 UNIT/500 ML PREMIX 30 UNIT IV (05:28)
[2025-05-01] MEDS: FUROsemide 10 mg/mL SDV 4mL 40 MG IVP ×2 (05:28→17:03)
[2025-05-01 06:10] LABS: Hematocrit 23.7 % (37-53); Hemoglobin 7.10 g/dL (11.27-16.99); Mean Corpuscular HGB Conc 30.0 g/dL (30-55); Mean Corpuscular Hemoglobin 33.6 pg (27-33); Mean Corpuscular Volume 112.3 fl (82-101); Nucleated Red Blood Cells % 0.9 %; Platelet Count 432 10^3/cmm (157-399); Red Blood Count 2.11 10^6/uL (3.85-5.65); White Blood Count 16.26 10^3/uL (3.29-11.43)
[2025-05-01 06:38] LABS: Partial Thromboplastin Time 55.7 SECONDS (23.9-36.7)
[2025-05-01 06:41] LABS: Estmated Average Glucose 100; Hemoglobin A1C 5.1 % (4.0-6.0)
[2025-05-01 06:46] LABS: Blood Urea Nitrogen 39 mg/dL (6-20); Calcium 9.3 mg/dL (8.5-10.5); Carbon Dioxide 22 mmol/L (22-29); Chloride 105 mmol/L (98-107); Glucose 100 mg/dL (65-115); Osmolality Calculated 297 mOsm/kg (285-295); Sodium 139 mmol/L (136-145); Thyroid Stimulating Hormone 3.83 uIU/mL (0.27-4.20)
[2025-05-01 06:48] LABS: Creatinine Clr Calc Pharmacy 61.2871
[2025-05-01 06:49] LABS: Anion Gap 16.5 (5-19); Potassium 4.5 mmol/L (3.5-5.1)
[2025-05-01 07:36] LABS: Magnesium 2.2 mg/dL (1.7-2.3)
[2025-05-01 08:06] LABS: Troponin T (5th) Once 98 ng/L (0-15)
[2025-05-01] MEDS: metoprolol succinate ER (24 HR) 50 mg Tablet PO (08:49)
--- NOTE | 2025-05-01 09:38 | P.PN_ITS ---
Subjective 2 Subjective: 59-year-old male with history of paroxysmal atrial fibrillation came in with chest pain, positive troponin,, acute kidney injury on chronic kidney disease, history of sleep apnea on CPAP at home with pulmonary infiltrates possibly pneumonia but clinically more consistent with volume overload. EKG showed Sinus tachycardia left atrial enlargement and nonspecific ST-T wave abnormality but he has had multiple episodes of of SVT and atrial flutter in the past. Nuclear study 2022 showed fixed perfusion defect in the anterolateral wall and kwesi-infarct ischemia in the RCA territory. He was treated medically for this. He came in with atrial flutter and patient had cardioversion 12/22/2023 for a flutter with RVR following MER by Dr. Yang with a 200 J shock Patient's A1c this admission was 5.1 and his diabetes and sleep apnea are managed by diet and CPAP but he takes no medications. He has been reluctant to take medications and chronically has hypertension and depressed LVEF. He came in with elevated troponin similar to past elevations with chest pain treated with Nitropaste and heparin drip. He has been diuresed and treated with BiPAP and has improved. D-dimer was elevated at 1.52 but he is not a good candidate for CTA due to creatinine 2.1 on admission and CKD 3 at baseline troponin is peaked at 98 Vitals/I&O/Wt Last Vital Signs Temp 98.5 F 05/01/25 04:00 Pulse 74 05/01/25 08:47 Resp 18 05/01/25 08:47 BP 150/82 05/01/25 06:00 Pulse Ox 94 05/01/25 08:47 O2 Del Method Nasal Cannula 05/01/25 08:47 O2 Flow Rate 3 05/01/25 08:47 FiO2 40 05/01/25 00:00 04/30/25 05/01/25 05/01/25 22:59 06:59 14:59 Intake Total 1047.866 / 1797.866 483.134 / 2281.000 Output Total 1550 / 2950 600 / 3550 Balance -502.134 / -1152.134 -116.866 / -1269.000 Weight last 48 hrs Weight 112.5 kg Weight 112.5 kg Weight 113 kg Weight 115.666 kg Physical Exam 2 Narrative: General well-developed well-nourished obese male on 3 L nasal cannula O2 currently in comfortable CV regular rate and rhythm Lungs bibasilar crackles and completely clear with deep breaths Abdomen positive bowel tones soft nontender Calves 2+ bilateral pretibial edema Data 05/01/25 04:06 05/01/25 04:06 Micro: Microbiology 04/30/25 08:36 Blood Culture - Preliminary Blood NEGATIVE TO DATE 04/30/25 08:38 Blood Culture - Preliminary Blood A&P Assessment and plan 1. NSTEMI (non-ST elevated myocardial infarction): Patient with untreated hypertension and poorly controlled diabetes. He has active chest pain. Have started him on heparin. Troponin 50 tigist to 70. To 90 and 98 now stable at 98 Initial blood pressures [id number] at 194/101 heart rate 99. It sounds like he is also had A-fib flutter episodes at home. I discussed with him need to treat hypertension to prevent cardiovascular disease, LVH and potentially hemorrhagic stroke. Patient was started on beta-angelita IV and p.o. yesterday. Blood pressure is improved. He has been initiated on diuresis which is still underway with improvement of his symptoms. Currently he is pain-free. I have asked Dr. Espinal to see him regarding his hypertensive heart disease, chest pain and elevated troponin and history of abnormal nuclear stress test in the setting of volume overload, CKD, unmanaged hypertension. 2. Paroxysmal atrial fibrillation with rapid ventricular response: Potassium 2.2 this morning after 2 g IV mag sulfate. He was 1.8 yesterday on admission 3. Acute hypercapnic respiratory failure: Continue with BiPAP as needed. Continue CPAP or BiPAP at night. Patient has been underlying sleep apnea Continue diuresis 4. Accelerated hypertension: Due to uncontrolled diabetes untreated hypertension now NSTEMI and fluid overload with A-fib flutter episodes based on history Patient started on metoprolol will add hydralazine. Stop Nitropaste and start Imdur. Once his kidney function is improved I would consider using ARB. At that point weaning hydralazine or Imdur would be appropriate 5. Obstructive sleep apnea: Home CPAP 13 cm. He is treated with BiPAP here 6. Multifocal pneumonia: Chest x-ray suspicious for heart failure but CT scan read as multifocal pneumonia. Will treat with Levaquin. Viral panel is negative Will follow-up chest x-ray PA and LAT tomorrow. If infiltrates have resolved with diuresis antibiotics can be stopped. Patient has chronically elevated white count in the setting of splenectomy and pyruvate kinase disease 7. Acute kidney injury: Improved with diuresis. Echo showed that he had elevated pulmonary pressures. 8. CHF exacerbation: As above 9. Noncompliance: Patient was counseled and is agreeable to treatment of his hypertension A- flutter and CKD with blood pressure control at minimum with beta-angelita 10. Pyruvate kinase (PK) deficiency anemia: As above 11. Mass of right kidney: This has been 3.3 cm for greater than 6 months. Will discuss with patient prior to discharge 12. Post-splenectomy: Noted patient has declined vaccines in the past PDMP PDMP Reviewed: Not Reviewed Attestations 2 Medical Necessity Statement*: Patient alma in the ICU with BiPAP diuresis and awaiting consultation with professional engineer for NSTEMI Coding Level of Care Code 93119 Diagnoses NSTEMI (non-ST elevated myocardial infarction) I21.4 Paroxysmal atrial fibrillation with rapid ventricular response I48.0 Acute hypercapnic respiratory failure J96.02 Accelerated hypertension I10 Obstructive sleep apnea G47.33 Multifocal pneumonia J18.8 Acute kidney injury N17.9 CHF exacerbation I50.9 Noncompliance Z91.199 Pyruvate kinase (PK) deficiency anemia D55.21 Mass of right kidney N28.89 Post-splenectomy Z90.81 Time Spent (min) 45
--- NOTE | 2025-05-01 09:58 | XRR_ITS ---
PROCEDURE INFORMATION: Exam: XR Chest Exam date and time: 05/01/2025 1:58 PM Age: 59 years old Clinical indication: Shortness of breath; Additional info: Pneumonia; Chf; Pulmonary infiltrates; Follow up TECHNIQUE: Imaging protocol: Radiologic exam of the chest. Views: 2 views. COMPARISON: CT chest abdpel [id number] 04/30/2025 7:34 AM FINDINGS: Lungs: Small granuloma in the right lung. No consolidation. Pleural spaces: Unremarkable. No pleural effusion. No pneumothorax. Heart/Mediastinum: Borderline cardiomegaly. Bones/joints: Unremarkable. XR/XR chest 2V* [id number] IMPRESSION: No acute findings.
--- NOTE | 2025-05-01 10:29 | PM.CONSULT ---
Providers/Reason For Consult Consulting Physician/Specialty*: Philomena Espinal MD Reason for Consult*: Elevated cardiac markers Acute on chronic decompensated diastolic heart failure Requesting Physician: Dr. Griffith Attending Physician: Boogie Griffith MD Primary Care Provider: Yu Lee APN History of Present Illness History of Present Illness Ernie Plasencia is a 59 year old male past medical history significant for morbid obesity obstructive sleep apnea chronic kidney disease pyruvate kinase deficiency chronic anemia requiring transfusion inability to take anticoagulation history of paroxysmal A-fib + compliance presented with chest pain worsening of shortness of breath PND orthopnea. According the patient after eating outside dinner he started noticing chest pressure initially thought GERD but later pain keep on coming back and became more tightness around the chest therefore he decided to come to the ER. In the ER his troponin (cardiac marker) was elevated therefore he was admitted. He was started on diuresis. Patient had negative stress test in the past however since continues to have recurrent heart failure and chest pressure we have been asked to assist in his care. Review of Systems Narrative: General No fevers chills has had some weight loss Cardiovascular positive for chest pain positive for hypertension episodes of tachycardia as well. Denies leg edema Respiratory negative for cough shortness of breath at rest but he does have dyspnea on exertion. 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 he has occasional nosebleeds last about 2 to 3 minutes stop spontaneously Malignancy history negative Eyes: Denies: photophobia Musc: Denies: joint warmth Psych: Denies: sleeping more Medications/Allergies Home Medications ?Medication ?Instructions ?Recorded ?Confirmed ?Last Taken ?Type ketorolac 10 mg tablet 10 mg PO Q8H PRN pain #10 tabs 04/28/25 04/30/25 Unknown Rx Allergies Allergy/AdvReac Type Severity Reaction Status Date / Time Calcium Channel Blocking Allergy Unknown Verified 04/28/25 14:51 Agent Dilt Current Medications Generic Name Dose Route Start Last Admin Trade Name Freq PRN Reason Stop Dose Admin Docusate Sodium 100 mg 04/30/25 18:00 05/01/25 08:49 Docusate Sodium 100 Mg Capsule PO 100 mg BID ROBBIE Administration Furosemide 40 mg 05/01/25 05:15 05/01/25 05:28 Furosemide 10 Mg/Ml Sdv 4ml IVP 40 mg Q12H ROBBIE Administration Heparin Sodium (Porcine) 0 unit 04/30/25 08:27 04/30/25 22:29 Heparin 5,000 Unit/Ml Inj 1 Ml IVP 2,300 unit PRN PRN Administration Heparin Weight Based Protocol -Subsequent Bolus Protocol Hydralazine HCl 10 mg 04/30/25 11:02 04/30/25 13:43 Hydralazine 20 Mg/Ml Inj 1 Ml IVP 10 mg Q4H PRN Administration HYPERTENSION Hydralazine HCl 25 mg 05/01/25 10:00 05/01/25 10:24 Hydralazine 25 Mg Tablet PO 25 mg TID ROBBIE Administration Heparin Sodium/Sodium Chloride 25,000 unit in 500 mls @ 0 mls/hr 04/30/25 08:30 05/01/25 06:30 Heparin Drip IV 12.97 unit/kg/hr CONT ROBBIE 30 mls/hr Protocol Titration Per Protocol Insulin Human Lispro 0 unit 04/30/25 18:00 05/01/25 08:47 Insulin Lispro 100 Unit/1 Ml SUBCUT Not Given WM&BEDTIME [facility] Protocol Isosorbide Mononitrate 30 mg 05/01/25 09:55 05/01/25 10:24 Isosorbide Mononitrate Er 30 Mg Tablet PO 30 mg DAILY ROBBIE Administration Levofloxacin 500 mg 05/01/25 06:00 05/01/25 07:02 Levofloxacin 500 Mg Tablet PO 500 mg DAILY@0600 ROBBIE Administration Protocol Metoprolol Succinate 50 mg 04/30/25 11:10 05/01/25 08:49 Metoprolol Succinate Er (24 Hr) 50 Mg Tablet PO 50 mg DAILY ROBBIE Administration Morphine Sulfate 2 mg 04/30/25 11:04 04/30/25 19:41 Morphine 4 Mg/Ml Sdv 1 Ml IVP 2 mg Q4H PRN Administration SEVERE PAIN Pantoprazole Sodium 40 mg 05/01/25 09:00 05/01/25 08:[address] 40 Mg Tablet PO 40 mg DAILY ROBBIE Administration Potassium Chloride 20 meq 05/01/25 09:00 05/01/25 08:49 Potassium Chloride Er 20 Meq Tablet PO 20 meq BID ROBBIE Administration PFSH Acute PFSH: Medical History (Updated 05/01/25 @ 17:47 by Philomena Espinal MD) Mass of right kidney Type 2 diabetes mellitus Noncompliance NSTEMI (non-ST elevated myocardial infarction) Acute hypercapnic respiratory failure Obstructive sleep apnea Attention deficit disorder Type 2 diabetes mellitus Sepsis Erectile disorder due to medical condition in male Cardiac left ventricular ejection fraction greater than or equal to 40 percent Actinic keratosis Seborrheic keratosis Pyruvate kinase (PK) deficiency anemia On continuous oral anticoagulation Recurrent cerebrovascular accidents (CVAs) Paroxysmal atrial fibrillation with rapid ventricular response Atrial flutter Acute kidney injury Macrocytic anemia Leukocytosis Febrile Leg pain, left Tick bite Basilar artery stenosis Vertebrobasilar ischemia Hyperlipidemia Gout Hx of ischemic vertebrobasilar artery brainstem stroke (2012) Hypertension Surgical History (Updated 04/30/25 @ 11:37 by Boogie Griffith MD) Post-splenectomy History of colonoscopy (2014) History of bone marrow biopsy (01/07/14) Bone marrow aspiration [facility] at [facility] H/O knee surgery Left knee cap repair - [facility] - Dr. 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 Daughter Anesthesia complication Mother Cancer Lung Other Diabetes Hyperlipidemia Hypertension Stroke Denies family history of CAD (coronary artery disease) Clotting disorder Dementia Psychiatric illness Chronic kidney disease (CKD) Suicide Bleeding disorder Lung disease Social History (Updated 04/30/25 @ 11:26 by Boogie Griffith MD) Smoking and tobacco/nicotine status: never used tobacco/nicotine Alcohol intake: never Substance/Drug Use: never Additional social history: Patient wants full code as discussed today with Boogie Griffith MD on 04/30/2025. His next of kin is daughter Daija. 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 He also helps his own kids running errands etc. they are ages 37, 35 and 27. He states he is not as active after his stroke service: Yes Current occupation: [employer] Dietary Habits: Current diet type/program: low carbohydrate Caffeine: Yes Vitals/I&O/Wt Last Vital Signs Temp 98.5 F 05/01/25 04:00 Pulse 68 05/01/25 10:00 Resp 18 05/01/25 08:47 BP 168/92 05/01/25 10:00 Pulse Ox 96 05/01/25 10:00 O2 Del Method Nasal Cannula 05/01/25 08:47 O2 Flow Rate 3 05/01/25 08:47 FiO2 40 05/01/25 00:00 04/30/25 05/01/25 05/01/25 22:59 06:59 14:59 Intake Total 1047.866 / 1797.866 483.134 / 2281.000 Output Total 1550 / 2950 600 / 3550 1600 / 1600 Balance -502.134 / -1152.134 -116.866 / -1269.000 -1600 / -1600 Weight last 48 hrs Weight 248 lb 0.321 oz Weight 248 lb 0.321 oz Weight 249 lb 1.957 oz Weight 255 lb Physical Exam Const: OTHER: GENERAL: Patient is alert, awake and oriented x3. HEART: Regular S1 and S2. No murmur, rub or gallop. LUNGS: Clear to auscultate bilaterally. Abdomen: Protuberant abnormal wall edema CENTRAL NERVOUS SYSTEM: Grossly nonfocal. EXTREMITIES: Lower extremities 1+ Data 05/01/25 04:06 05/01/25 04:06 Micro: Microbiology 04/30/25 08:36 Blood Culture - Preliminary Blood NEGATIVE TO DATE 04/30/25 08:38 Blood Culture - Preliminary Blood A&P Assessment and plan 1. CHF (congestive heart failure), NYHA class III: 2. High level of cardiac marker: 3. Hx of transient ischemic attack involving posterior circulation: Plan: Patient presented with angina like clinical scenario along with volume overload status most likely acute on chronic decompensated diastolic heart failure. He has underlying chronic kidney disease baseline creatinine, chest pain is typical for angina however patient has prior history of bleeding disorder due to which she was not able to take anticoagulation and was referred at 1 point for Watchman device. Ideally he will be requiring further exploration with left heart cath once achieve euvolemic status provided renal function near the baseline however given history of bleeding disorder and bleeding on anticoagulation dual antiplatelet therapy if requiring PCI need to be discussed extensively with the patient. Plan: Continue IV diuresis with goal of 1 to 1.5 L negative Keep replenishing potassium Keep beta-angelita intact Heparin as per protocol Once achieve euvolemic status and renal function improve we will discuss the option of left heart cath PDMP PDMP Reviewed: Not Reviewed Consult Attestations Medical Necessity Statement: Patient require continuation of hospitalization for above defined care. Patient will be crossing more than 2 midnights Coding Level of Care Code Acute Code for Chg Fwd Diagnoses CHF (congestive heart failure), NYHA class III I50.9 High level of cardiac marker R74.8 Hx of transient ischemic attack involving posterior circulation Z86.73
[2025-05-01 13:27] LABS: Partial Thromboplastin Time 27.9 SECONDS (23.9-36.7)
[2025-05-01 13:35] LABS: Iron 53 ug/dL (59-158); Iron 58 ug/dL (59-158); Total Iron Binding Capacity 215 mcg/dl; Unsaturated Iron Binding 162 ug/dL (112-347)
[2025-05-01 13:51] LABS: Ferritin 2097 ng/mL (30-400)
[2025-05-01] MEDS: iron sucrose 200 MG in sodium chloride 0.9% (100 ml) 100 ML 220 MG IV (17:01)
[2025-05-02] VITALS (14 sets, daily range): BP systolic 114–170; BP diastolic 63–88; PULSE 72–96; RESP 10–23; TEMP 36.6–37.6; O2SAT 89–97
[2025-05-02 04:35] LABS: Hematocrit 23.5 % (37-53); Hemoglobin 7.10 g/dL (11.27-16.99); Mean Corpuscular HGB Conc 30.2 g/dL (30-55); Mean Corpuscular Hemoglobin 33.8 pg (27-33); Mean Corpuscular Volume 111.9 fl (82-101); Nucleated Red Blood Cells % 0.5 %; Platelet Count 404 10^3/cmm (157-399); Red Blood Count 2.10 10^6/uL (3.85-5.65); White Blood Count 17.09 10^3/uL (3.29-11.43)
[2025-05-02 05:00] LABS: Blood Urea Nitrogen 39 mg/dL (6-20); Calcium 9.5 mg/dL (8.5-10.5); Carbon Dioxide 24 mmol/L (22-29); Chloride 107 mmol/L (98-107); Creatinine Clr Calc Pharmacy 49.5036; Glucose 101 mg/dL (65-115); Osmolality Calculated 306 mOsm/kg (285-295); Sodium 143 mmol/L (136-145)
[2025-05-02 05:01] LABS: Anion Gap 16.6 (5-19); Potassium 4.6 mmol/L (3.5-5.1)
[2025-05-02] MEDS: metoprolol succinate ER (24 HR) 50 mg Tablet PO (08:24)
[2025-05-02] MEDS: FUROsemide 10 mg/mL SDV 4mL 40 MG IVP ×3 (08:26→17:25)
[2025-05-02 09:19] LABS: LAB Peripheral Smear Sent for Review
[2025-05-02 09:28] LABS: Vitamin B12 1195 pg/mL (232-1245)
--- NOTE | 2025-05-02 09:47 | PC.CHAP ---
Pastoral Care Encounter/Spiritual Assessment Type of Contact [] Declined cellular equipment repairer visit [] Patient/Family/Request visit [] Outpatient visit [] Follow-up visit [] Physician referral [] Code/Alert [x] Routine visit [] Staff referral [] Actively dying [] Patient sleeping [] Family support [] [] Out of room [] Palliative care [] [] Receiving care in room [] Pre-surgical visit [] Trauma [] Long length of stay [] ICU visit [] Other: Relational/Emotional Strength [] Patient feels connected with others/family/visitors/staff [] Distress [] Loneliness/isolation [] Abandonment Spirituality of Patient [x] Person of [place] [] Attends Religion of their [place] [x] Believes in Prayer [] Reads Bible or Faith materials [] There are Spiritual issues to be addressed Car Worker Helper Interventions [x] Prayer [x] Active listening [] Non-anxious presence [] Spiritual/emotional support [] Crisis/trauma care [] Spiritual counseling [] Bereavement support [] Provided bereavement packet [x] Provided Bible/devotional materials [] Provided toy/stuffed animal, coloring book to patient or family member [] Provided Communion [] Anointing/[place] [] Salvation [x] Completed spiritual assessment [] Other: Impact on Illness or Injury [] Angry [] Fearful [] Anxious [] Often cries [] Exhaustion [] Unable to work [] Unable to attend amish [] Unable to walk/stand [] Unable to read [] Unable to drive [] Unable to eat/drink [] Unable to sleep [] Unable to be with family [] Patient intubated [] Other: Summary Time spent with patient 10 min
[2025-05-02] MEDS: diclofenac 1% Topical Gel 100 gm 1 APPLIC TOPICAL ×4 (10:33→21:34)
--- NOTE | 2025-05-02 12:02 | P.PN_ITS ---
<Statement entered by Philomena Espinal MD - 05/05/25 20:06> Patient was evaluated and cared for in conjunction with an advanced practice practitioner. I personally examined the patient and reviewed the chart and all pertinent data including imaging, telemetry, and laboratory results. I discussed the patient in detail with the advanced practice practitioner. Please see their note for complete H&P testing result and agreed upon plan of care for the patient. Subjective 2 Subjective: No chest pain overnight, nitropaste discontinued yesterday, he received a dose of Imdur yesterday. Vitals/I&O/Wt Last Vital Signs Temp 98.0 F 05/02/25 07:18 Pulse 72 05/02/25 09:03 Resp 18 05/02/25 09:03 BP 162/78 05/02/25 07:18 Pulse Ox 97 05/02/25 07:18 O2 Del Method Nasal Cannula 05/02/25 09:03 O2 Flow Rate 2 05/02/25 09:03 FiO2 40 05/01/25 00:00 05/01/25 05/02/25 05/02/25 22:59 06:59 14:59 Intake Total 1259.233 / 1471.233 360 / 360 Balance 1259.233 / -128.767 360 / 360 Weight last 48 hrs Weight 245 lb 9.6 oz Weight 245 lb 9.6 oz Weight 248 lb 0.321 oz Weight 248 lb 0.321 oz Physical Exam 2 Const: COMMON NORMALS: no acute distress and patient oriented x3 GENERAL APPEARANCE: cooperative and comfortable ORIENTATION/CONSCIOUSNESS: Yes awake, Yes oriented to person, Yes oriented to place and Yes oriented to time Chest: COMMONS NORMALS: normal inspection of the chest and normal palpation of entire chest wall CHEST: Yes Symmetrical chest wall rise Resp: COMMON NORMALS: normal respiratory effort, No retractions, No use of accessory muscles and clear to auscultation bilaterally EFFORT & INSPECTION: Yes symmetric chest movement AUSCULTATION: clear to auscultation bilaterally Cardio: COMMON NORMALS: regular rate, regular rhythm, S1 normal heart sound present, S2 normal heart sound present, No gallops present (Cardio), No clicks present (Cardio), No murmurs present (Cardio) and No rub (Cardio) RATE: r egular rate RHYTHM: regular rhythm HEART SOUNDS: S1 normal heart sound present and S2 normal heart sound present PERIPHERAL PULSES: radial pulses present Extremity: COMMON NORMALS: no pedal edema Neuro: COMMON NORMALS: patient oriented x3 and moves all extremities S ENSORIUM/ORIENTATION: Yes oriented to person, Yes oriented to place and Yes oriented to time Data 05/02/25 02:04 05/02/25 02:04 Micro: Microbiology 04/30/25 08:38 Blood Culture - Preliminary Blood Staphylococcus sp coag neg 05/01/25 13:02 Blood Culture - Preliminary Blood SPECIMEN COLLECTED 05/01/25 13:00 Blood Culture - Preliminary Blood SPECIMEN COLLECTED 04/30/25 08:36 Blood Culture - Preliminary Blood NEGATIVE TO DATE A&P Assessment and plan 1. NSTEMI (non-ST elevated myocardial infarction): 2. CHF (congestive heart failure), NYHA class III: 3. Type 2 diabetes mellitus: 4. Pyruvate kinase (PK) deficiency anemia: Plan: He has NSTEMI and ordinarily coronary angiogram would be recommended, however he has PK deficiency s/p splenectomy, chronic anemia (hgb usually 9-10). Due to elevated bleeding risk with antiplatelet medications, will need to discuss his case with baker chef to determine risk benefit profile in his situation. For now will obtain Lexiscan stress test to evaluate for myocardial ischemia, since he is chest pain free. NPO after midnight for test. Antihypertensives adjusted today by our hospitalist service, blood pressure was not well controlled. PDMP PDMP Reviewed: Not Reviewed Attestations 2 Medical Necessity Statement*: ischemic workup for elevated troponin Coding Level of Care Code Acute Code for [facility] Diagnoses NSTEMI (non-ST elevated myocardial infarction) I21.4 CHF (congestive heart failure), NYHA class III I50.9 Type 2 diabetes mellitus E11.9 Pyruvate kinase (PK) deficiency anemia D55.21
--- NOTE | 2025-05-02 12:04 | ECG_ITS ---
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 Interpretive Statements Lung unchanged pre/post procedure; Intraprocedure shortess of breath; Symptoms resoled by discharge PROCEDURE: At the baseline, the EKG revealed normal sinus rhythm with some nonspecific ST changes.. The baseline heart was 77 bpm with a blood pressue of 174/83 mm of Hg Lexiscan was infused over a period of 20 seconds. A total of 0.4 milligrams of Lexiscan was infused. The stress phase was continued for a total of 5 minutes. Heart rate at the end of the stress phase was 85 bpm with a blood pressure 167/77 mm of Hg. The EKG at the peak infusion revealed no significant changes. Sestamibi was injected 20 seconds after the Lexiscan infusion. Heart rate at the end of the recovery phase was 84 bpm with a blood pressure of 168/78 mm of Hg. CONCLUSION: 1. No significant EKG changes with the LexiScan infusion 2. No LexiScan induced chest pain or cardiac arrhythmia 3. Normal blood pressure and heart rate response 4. Sestamibi/sestamibi perfusion scan pending; see separate report. Electronically Signed On 05-03-2025 22:25:50 CDT by Sera Benjamin M.D. [id number]
--- NOTE | 2025-05-02 13:13 | P.PN_ITS ---
Subjective 2 Subjective: Hospital course, labs appreciated. Examination patient laying comfortably in bed saturating 95% on 2 L. Awake and alert. States feeling a lot better. Denies any nausea, vomiting, headache. Vitals/I&O/Wt Last Vital Signs Temp 99.7 F H 05/02/25 13:04 Pulse 79 05/02/25 13:04 Resp 21 H 05/02/25 13:04 BP 162/78 05/02/25 12:48 Pulse Ox 90 05/02/25 13:04 O2 Del Method Nasal Cannula 05/02/25 09:03 O2 Flow Rate 2 05/02/25 09:03 FiO2 40 05/01/25 00:00 05/01/25 05/02/25 05/02/25 22:59 06:59 14:59 Intake Total 1259.233 / 1471.233 600 / 600 Balance 1259.233 / -128.767 600 / 600 Weight last 48 hrs Weight 111.402 kg Weight 111.402 kg Weight 112.5 kg Weight 112.5 kg Physical Exam 2 Narrative: General well-developed well-nourished obese male on 3 L nasal cannula O2 currently in comfortable CV regular rate and rhythm Lungs bibasilar crackles and completely clear with deep breaths Abdomen positive bowel tones soft nontender Calves 2+ bilateral pretibial edema Data 05/02/25 02:04 05/02/25 02:04 Micro: Microbiology 05/01/25 13:02 Blood Culture - Preliminary Blood NEGATIVE TO DATE 05/01/25 13:00 Blood Culture - Preliminary Blood NEGATIVE TO DATE 04/30/25 08:38 Blood Culture - Preliminary Blood Staphylococcus sp coag neg 04/30/25 08:36 Blood Culture - Preliminary Blood NEGATIVE TO DATE A&P Assessment and plan 1. NSTEMI (non-ST elevated myocardial infarction): Denies any active chest pain. History of positive Lexiscan stress test in March 2023. Check lipid panel, A1c. Echocardiogram done during this hospitalization shows no regional wall motion abnormality but with an EF of 40% with grade 2 diastolic dysfunction. Start on aspirin 81 mg daily, atorvastatin 40 mg nightly. Already on metoprolol. Given elevated blood pressures can plan to switch to Coreg. Discussed in detail with the patient for possible need of cardiac angiogram given history of abnormal stress test. Discussed risk of renal dysfunction with contrast due to ERIC. Patient verbalized understanding and wants to hold off on cardiac angiogram for now. He will follow-up with cardiology as an outpatient. 2. Acute hypercapnic respiratory failure: Combination of CHF and sleep apnea. Continue with home BiPAP. 3. CHF exacerbation: Echocardiogram shows EF of 40%. Grade 2 diastolic dysfunction. Strict input output charting, daily weights. Continue with IV Lasix 40 mg twice daily. Fluid restriction to less than 1500 cc. Monitor renal functions in afternoon. 4. Accelerated hypertension: Goal blood pressure less than 140/90 mmHg. Blood pressure slightly elevated. Switch from metoprolol to Coreg 12.5 twice daily. Continue with current dose of Imdur and hydralazine. Uptitrate as for goal blood pressure. 5. Acute kidney injury: RAFAEL on CKD. Baseline creatinine seems to be 1.3-1.6. Currently 2.1. In setting of congestive heart failure. Monitor renal functions daily. Continue diuresis as above. Medical reconciliation for nephrotoxic drugs. Check urine lites, urine creatinine 6. Anemia: Baseline hemoglobin seems to be 8.6-9.2. Currently 7.1. Does have history of PKD. Associated with macrocytosis, thrombocytosis. Postsplenectomy. Most likely in setting of PKD. Check reticulocyte count, haptoglobin, LDH. Check peripheral smear. Depending on haptoglobin levels will plan for further evaluation. Target hemoglobin more than 8 given congestive heart failure. Will transfuse monitor PRBC. Patient is agreeable. 7. Pyruvate kinase (PK) deficiency anemia: As above 8. Post-splenectomy: Noted patient has declined vaccines in the past 9. Obstructive sleep apnea: 10. Multifocal pneumonia: Possibility of multifocal pneumonia though could be in setting of heart failure. Continue with Levaquin. Finish a 5-day course of Levaquin. Add doxycycline for 5-day course as well. Viral panel is negative Will follow-up chest x-ray PA and LAT tomorrow. 11. Paroxysmal atrial fibrillation with rapid ventricular response: Telemonitoring. Rate controlled. 12. Noncompliance: Patient was counseled and is agreeable to treatment of his hypertension A- flutter and CKD with blood pressure control at minimum with beta-angelita 13. Mass of right kidney: This has been 3.3 cm for greater than 6 months. Will discuss with patient prior to discharge Plan: Full code Cardiac diet. Protonix for PUD prophylaxis PDMP PDMP Reviewed: Not Reviewed Attestations 2 Medical Necessity Statement*: Requires further hospitalization for management of respiratory distress in setting of congestive heart failure, non-ST elevation DE, anemia requiring blood transfusion, uncontrolled hypertension Diagnoses NSTEMI (non-ST elevated myocardial infarction) I21.4 Acute hypercapnic respiratory failure J96.02 CHF exacerbation I50.9 Accelerated hypertension I10 Acute kidney injury N17.9 Anemia D64.9 Pyruvate kinase (PK) deficiency anemia D55.21 Post-splenectomy Z90.81 Obstructive sleep apnea G47.33 Multifocal pneumonia J18.8 Paroxysmal atrial fibrillation with rapid ventricular response I48.0 Noncompliance Z91.199 Mass of right kidney N28.89
[2025-05-02 17:40] LABS: Anion Gap 16.8 (5-19); Blood Urea Nitrogen 40 mg/dL (6-20); Calcium 10.4 mg/dL (8.5-10.5); Carbon Dioxide 25 mmol/L (22-29); Chloride 105 mmol/L (98-107); Creatinine Clr Calc Pharmacy 47.0233; Glucose 120 mg/dL (65-115); Osmolality Calculated 305 mOsm/kg (285-295); Potassium 4.8 mmol/L (3.5-5.1); Sodium 142 mmol/L (136-145)
[2025-05-02 23:15] LABS: Add Urine Microscopic? NO
[2025-05-02 23:19] LABS: Glucose Urine UA Negative (Normal); Nitrate Urine Negative (Negative); Specific Gravity, Urine 1.008 (1.005-1.030)
[2025-05-02 23:31] LABS: Charge for UA Resulting for Rev
[2025-05-02 23:33] LABS: Potassium, Radom Urine 24 mmol/L; Urine Random Chloride 113 mmol/L; Urine Random Sodium 115 mmol/L
[2025-05-03] VITALS (7 sets, daily range): BP systolic 138–168; BP diastolic 61–79; PULSE 75–84; RESP 14–20; TEMP 36.6–37.9; O2SAT 90–95; BMI 33.3
[2025-05-03 03:48] LABS: Hematocrit 26.9 % (37-53); Hemoglobin 8.50 g/dL (11.27-16.99); Mean Corpuscular HGB Conc 31.6 g/dL (30-55); Mean Corpuscular Hemoglobin 34.0 pg (27-33); Mean Corpuscular Volume 107.6 fl (82-101); Nucleated Red Blood Cells % 0.3 %; Platelet Count 440 10^3/cmm (157-399); Red Blood Count 2.50 10^6/uL (3.85-5.65); White Blood Count 17.48 10^3/uL (3.29-11.43)
[2025-05-03 04:08] LABS: Cholesterol 207 mg/dL (0-200); HDL Cholesterol 35 mg/dL (60-100); Triglycerides 174 mg/dL (0-150); VLDL Cholestrol Calculation 35 mg/dL (0-30)
[2025-05-03 04:17] LABS: Alanine Aminotransferase 14 U/L (0-41); Albumin Level 3.9 g/dL (3.5-5.2); Alkaline Phosphatase 73 U/L (40-130); Anion Gap 19.5 (5-19); Aspartate Amino Transferase 12 U/L (0-40); Blood Urea Nitrogen 49 mg/dL (6-20); Calcium 10.3 mg/dL (8.5-10.5); Carbon Dioxide 23 mmol/L (22-29); Chloride 105 mmol/L (98-107); Creatinine Clr Calc Pharmacy 43.1047; Globulin 3.1 g/dL (1.3-4.6); Glucose 119 mg/dL (65-115); Osmolality Calculated 310 mOsm/kg (285-295); Potassium 4.5 mmol/L (3.5-5.1); Sodium 143 mmol/L (136-145); Total Protein 7.0 g/dL (6.6-8.7)
--- NOTE | 2025-05-03 09:22 | P.DS_ITS ---
Discharge Providers Date of Admission: 04/30/25 08:43 Date of Discharge: May 03, 2025 Attending Provider at Admission: Boogie Griffith MD Attending Provider at Discharge: Isai Guajardo MD Primary Care Provider: Yu Lee APN Diagnoses at Discharge Discharge Diagnosis 1. NSTEMI (non-ST elevated myocardial infarction): 2. Acute hypercapnic respiratory failure: 3. CHF exacerbation: 4. Accelerated hypertension: 5. Acute kidney injury: 6. Anemia: 7. Pyruvate kinase (PK) deficiency anemia: 8. Post-splenectomy: 9. Obstructive sleep apnea: 10. Multifocal pneumonia: 11. Paroxysmal atrial fibrillation with rapid ventricular response: 12. Noncompliance: 13. Mass of right kidney: 14. Type 2 diabetes mellitus: 15. CHF (congestive heart failure), NYHA class III: Reason for Visit Reason for Visit: chest pain Brief History: Per HPI: Ernie Plasencia is a 59 year old male with obesity on CPAP at home settings of 12 or 13 states that he felt fine yesterday but after having a salad and thinking he had gas he will woke this morning and could not breathe. Came to t he emergency department found to have blood pressure [id number], acute kidney injury and bilateral pulmonary infiltrates and cardiomegaly suspicious for heart failure but radiologist reads developing infiltrates. CT scan read as multifocal infiltrates and therefore patient was started on meropenem and linezolid. Patient tells me that he felt fine yesterday but does admit that in the last few days he has had times checking his blood pressure where heart rate is 170s and then quickly returns back to normal. He states that last year he took a dose of niacin and had A-fib before. Looking at EKGs he has had a flutter 12/18/2023 SVT 12/18/2023 heart rate 169. Patient has been reluctant to take medications and secluding did not get vaccinated despite splenectomy for hypersplenism, treatmen t for hypertension and SVT despite recurrent hypertension and a flutter in the past. Hospital Course Hospital Course He was admitted to the hospital further evaluation and management non-ST elevation RI leading to shortness of breath, acid hypertension along with acute kidney injury. He was started on treatment with IV diuresis, adjustment of antihypertensive and heparin drip. Cardiology was consulted. His initial shortness of breath resolved with IV diuresis. Currently he has been on room air at rest for last 24-48 hrs He was also he was also found to have worsening he was also found to have worsening anemia to his baseline which is thought to be in setting of chronic PKD. Acute bleeding acute bleeding and hemolysis was ruled out. Did recieve 1 unit of blood transfusion. Given persistent renal dysfunction as patient did not have any further chest pain with resolution of shortness of breath he underwent cardiac stress test on 05/03. He was also found to have uncontrolled HTN for which his anti-HTN meds have been adjusted. He has been counseled in detail for medical compliance. 08/07 bottles cam positive for staph epidermidis. Repeat Bcx have been negative. As patient has a h/o spleenectomy to Err at a gerda eof caution he is been discharged on linezolid for 2 weeks while repeat blood culture final report is pending. Physical Exam Narrative: General well-developed well-nourished obese male on 3 L nasal cannula O2 currently in comfortable CV regular rate and rhythm Lungs bibasilar crackles and completely clear with deep breaths Abdomen positive bowel tones soft nontender Calves 2+ bilateral pretibial edema Discharge Data Studies Completed and Pending Completed Studies During Hospitalization Category [place] [id number] Stat Cat Scan 04/30/25 07:02 Completed Cardiac Stress Test MIBI [Sestamibi Stress Test Request Exams 05/02/25 12:04 Draft ] Routine XR chest 1V portable [id number] Stat Exams 04/30/25 06:14 Completed XR chest 2V* [id number] Routine Exams 05/01/25 09:58 Completed NM tree perf SPECT r/s* [id number] Routine Nuc Med 05/03/25 12:05 Completed CV. echo complete* [id number] Routine Ultrasound 04/30/25 11:14 Completed US renal BI* [id number] Stat Ultrasound 04/30/25 08:03 Completed US venous duplex lower extremity bilat [CV venous Ultrasound 04/30/25 08:47 [place] [id number]] Stat Pending at discharge Category Date Time Status Blood Culture Routine Lab 05/01/25 13:02 Results Blood Culture Stat Lab 04/30/25 08:36 Results Occult Blood Stool [Immunochemical Fecal OCB] Routine Lab 05/02/25 08:33 Uncollected Respiratory Panel 2 Routine Lab 05/03/25 08:40 Uncollected Radiology Impressions Chest/Abdomen/Pelvis CT 04/30/25 07:02 IMPRESSION: Multifocal pneumonia with masslike confluent areas. Follow-up chest CT in 3 months recommended. IMPRESSION: 1. Ultrasound or MRI of the kidneys recommended to evaluate whether a cyst or mass is present within the right renal pelvis. 2. Cholelithiasis. COMMENTS: Consistent with the [place] [employer]'s Incidental Findings Committee white paper (J Am Francis Radiol 2018): Any incidental renal lesion less than 1 cm or classified as too small to characterize, or any incidental cystic renal lesion characterized as simple-appearing, is likely benign. No follow-up imaging is recommended for these lesions per consensus recommendations based on imaging criteria. Renal Ultrasound 04/30/25 08:03 IMPRESSION: 3.1 cm solid mass in the right renal pelvis. MRI recommended for further evaluation. Venous Duplex 04/30/25 08:47 IMPRESSION: No sonographic evidence of deep venous thrombosis. Chest X-Ray 05/01/25 09:58 IMPRESSION: No acute findings. Echocardiogram CONCLUSIONS Mildly increased left ventricular cavity size. Moderately decreased left ventricular systolic function. Left ventricular ejection fraction is estimated at 40 %. Global left ventricular hypokinesis. Grade II/IV diastolic dysfunction, moderately elevated filling pressures. Moderate aortic valve calcification. Mild aortic valve stenosis, mean gradient 3.8 mmHg, HERI 2 cm squared. Trace aortic valve regurgitation. Moderately thickened mitral valve. No mitral valve stenosis. Mild mitral valve regurgitation. There is no pericardial effusion. Right atrial pressure is around 20 mm of mercury. Philomena Espinal MD (Electronically Signed) Final Date: 30 April 2025 20:42 Cardiac Stress test IMPRESSIONS 1. Myocardial perfusion imaging revealing a small area of reversible defect involving the apical inferior segment suggesting ischemia in the distribution of the distal right coronary artery 2. Diminished LV ejection fraction of 36% 3. Segmental wall motion analysis revealing diffuse hypokinesia of the left ventricle 4. Moderately dilated LV cavity with an end-systolic volume of 141 mL The above features may suggest a nonischemic form of cardiomyopathy with a possible small area of ischemia in the distribution of the right coronary artery Dr Sera Benjamin MD [facility] (Electronically Signed) Final Date: 03 May 2025 09:20 Laboratory Results WBC 17.48 10^3/uL (3.29-11.43) H 05/03/25 03:00 RBC 2.50 10^6/uL (3.85-5.65) L 05/03/25 03:00 Hgb 8.50 g/dL (11.27-16.99) L 05/03/25 03:00 Hct 26.9 % (37-53) L 05/03/25 03:00 MCV 107.6 fl (82-101) H 05/03/25 03:00 MCH 34.0 pg (27-33) H 05/03/25 03:00 MCHC 31.6 g/dL (30-55) 05/03/25 03:00 RDW 17.9 % (12.1-15.1) H 05/03/25 03:00 Plt Count 440 10^3/cmm (157-399) H 05/03/25 03:00 MPV 11.7 fL (7.4-10.4) H 05/03/25 03:00 Neut % (Auto) 66.6 % 05/03/25 03:00 Lymph % (Auto) 17.3 % 05/03/25 03:00 Schley % (Auto) 13.8 % 05/03/25 03:00 Eos % (Auto) 1.3 % 05/03/25 03:00 Baso % (Auto) 0.5 % 05/03/25 03:00 Reticulocyte % (Auto) 22.7 % (0.5-2.0) H 05/02/25 02:04 Neut # (Auto) 11.64 10^3/uL (1.8-7.7) H 05/03/25 03:00 Lymph # (Auto) 3.0 10^3/uL (0.8-4.8) 05/03/25 03:00 Schley # (Auto) 2.4 10^3/uL (0.2-0.9) H 05/03/25 03:00 Eos # (Auto) 0.2 10^3/uL (0.0-0.8) 05/03/25 03:00 Baso # (Auto) 0.1 10^3/uL (0.0-0.1) 05/03/25 03:00 Nucleated RBC % (auto) 0.3 % 05/03/25 03:00 Nucleated RBCs # 0.1 /100WBC 05/03/25 03:00 Peripher Smr Path Cons Sent for review 05/02/25 02:04 Haptoglobin 118.0 mg/L (30-200) 05/02/25 02:04 APTT 27.9 SECONDS (23.9-36.7) 05/01/25 13:00 D-Dimer 1.52 ug/mLFEU (0-0.59) H 04/30/25 05:52 Specimen Type Arterial 04/30/25 05:59 Sample Site Radial, right 04/30/25 05:59 ABG pH 7.20 (7.35-7.45) L 04/30/25 05:59 ABG pCO2 62.6 mmHg (35-45) H* 04/30/25 05:59 ABG pO2 135.0 mmHg (80.0-100.0) H 04/30/25 05:59 ABG PO2/FiO2 Ratio 135 04/30/25 05:59 ABG HCO3 24.5 mmol/L (22-26) 04/30/25 05:59 ABG O2 Saturation > 99.1 04/30/25 05:59 ABG Base Excess -3.7 mmol/L (-2.0-2.0) L 04/30/25 05:59 Kev Test Pos 04/30/25 05:59 A-a O2 Gradient 65.2 mmHg (5-10) H 04/30/25 05:59 Hematocrit 25.3 % (42-52) L 04/30/25 05:59 Hgb O2 Saturation 96.0 % (95-100) 04/30/25 05:59 Carboxyhemoglobin 3.3 %THgb (0.4-20.1) 04/30/25 05:59 Methemoglobin 0.1 % (0.4-1.5) L 04/30/25 05:59 Total Hemoglobin 8.2 g/dL (14-18) L 04/30/25 05:59 Sodium 143.0 mmol/L (131-143) 04/30/25 05:59 Potassium 4.7 mmol/L (3.5-5.0) 04/30/25 05:59 Glucose 379.0 mg/dL (70-115) H 04/30/25 05:59 Ionized Calcium 1.3 mmol/L (1.1-1.4) 04/30/25 05:59 O2 Delivery Device Nrb 04/30/25 05:59 O2 Liters/Min 15.0 % 04/30/25 05:59 FiO2 100.0 % 04/30/25 05:59 Credit Specialist ID [email or web address] 04/30/25 05:59 Sodium 143 mmol/L (136-145) 05/03/25 03:00 Potassium 4.5 mmol/L (3.5-5.1) 05/03/25 03:00 Chloride 105 mmol/L (98-107) 05/03/25 03:00 Carbon Dioxide 23 mmol/L (22-29) 05/03/25 03:00 Anion Gap 19.5 (5-19) H 05/03/25 03:00 BUN 49 mg/dL (6-20) H 05/03/25 03:00 Creatinine 2.4 mg/dL (0.7-1.2) H 05/03/25 03:00 GFR Calculation 28.0 mL/min (90-130) L 05/03/25 03:00 Glucose 119 mg/dL (65-115) H 05/03/25 03:00 POC Glucose 118 mg/dL (70-110) H 05/02/25 06:18 Estimat Average Glucose 100 05/01/25 04:06 Hemoglobin A1c 5.1 % (4.0-6.0) 05/01/25 04:06 Calculated Osmolality 310 mOsm/kg (285-295) H 05/03/25 03:00 Lactic Acid 2.2 mmol/L (0.5-2.2) 04/30/25 05:52 Lactic Acid (Sepsis) 1.1 mmol/L (0.5-2.2) 04/30/25 08:36 Calcium 10.3 mg/dL (8.5-10.5) 05/03/25 03:00 Phosphorus 4.4 mg/dL (2.5-4.5) 05/01/25 04:06 Magnesium 2.2 mg/dL (1.7-2.3) 05/01/25 04:06 Iron 53 ug/dL (59-158) L 05/01/25 13:00 Iron 58 ug/dL (59-158) L 05/01/25 13:00 TIBC 215 mcg/dl 05/01/25 13:00 % Saturation 24.6 % (20-50) 05/01/25 13:00 Unsat Iron Binding 162 ug/dL (112-347) 05/01/25 13:00 Ferritin 2097 ng/mL (30-400) H 05/01/25 13:00 Total Bilirubin 1.5 mg/dL (0.15-1.2) H 05/03/25 03:00 AST 12 U/L (0-40) 05/03/25 03:00 ALT 14 U/L (0-41) 05/03/25 03:00 Alkaline Phosphatase 73 U/L (40-130) 05/03/25 03:00 Lactate Dehydrogenase 168 U/L (135-225) 05/02/25 02:04 Troponin T 5th Gen ng/L 98 ng/L (0-15) H 05/01/25 04:06 Troponin T Baseline 51 ng/L (0-15) H 04/30/25 05:52 Troponin T 120 Minute 76.76 ng/L (0-15) H 04/30/25 07:50 Delta Troponin T 25.76 ABS# (0-10) H* 04/30/25 07:50 Troponin T Hi Sens 6Hr 90.48 ng/L (0-15) H 04/30/25 12:15 Troponin T Hi Sens 6Hr Delta 39.48 ng/L (0-12) H* 04/30/25 12:15 NT-Pro-B Natriuret Pep 2276 pg/mL (0-125) H 04/30/25 05:52 Total Protein 7.0 g/dL (6.6-8.7) 05/03/25 03:00 Albumin 3.9 g/dL (3.5-5.2) 05/03/25 03:00 Globulin 3.1 g/dL (1.3-4.6) 05/03/25 03:00 Triglycerides 174 mg/dL (0-150) H 05/03/25 03:00 Cholesterol 207 mg/dL (0-200) H 05/03/25 03:00 LDL Cholesterol, Calc 137 mg/dL (50-129) H 05/03/25 03:00 Total VLDL Cholesterol 35 mg/dL (0-30) H 05/03/25 03:00 HDL Cholesterol 35 mg/dL (60-100) L 05/03/25 03:00 Cholesterol/HDL Ratio 5.91 mg/dL (1.0-5.00) H 05/03/25 03:00 Vitamin B12 1195 pg/mL (232-1245) 05/02/25 02:04 Folate 7.4 ng/mL (4.5-32.2) 05/03/25 03:00 TSH 3.83 uIU/mL (0.27-4.20) 05/01/25 04:06 Urine Color Yellow (Yellow) 05/02/25 23:04 Urine Appearance Clear (CLEAR) 05/02/25 23:04 Urine pH 5.0 (5-7) 05/02/25 23:04 Ur Specific [place] 1.008 (1.005-1.030) 05/02/25 23:04 Urine Protein Trace (Negative) A 05/02/25 23:04 Urine Glucose (UA) Negative (Normal) 05/02/25 23:04 Urine Ketones Negative (Negative) 05/02/25 23:04 Urine Blood Negative (Negative) 05/02/25 23:04 Urine Nitrate Negative (Negative) 05/02/25 23:04 Urine Bilirubin Negative (Negative) 05/02/25 23:04 Urine Urobilinogen 0.2 mg/dL (Negative) 05/02/25 23:04 Ur Leukocyte Esterase Negative (Negative) 05/02/25 23:04 Amorphous Sediment Not Reportable 05/02/25 23:04 Ur Random Sodium 115 mmol/L 05/02/25 23:04 Ur Random Potassium 24 mmol/L 05/02/25 23:04 Ur Random Chloride 113 mmol/L 05/02/25 23:04 Urine Creatinine 47 mg/dL (39-259) 05/02/25 23:04 Serum Ketones Negative (Negative) 04/30/25 05:52 Adenovirus (PCR) Not detected (NOT DETECT) 04/30/25 12:15 C. pneumoniae DNA (PCR) Not detected (NOT DETECT) 04/30/25 12:15 Coronavirus 229E (PCR) Not detected (NOT DETECT) 04/30/25 12:15 Human Metapneumovir PCR Not detected (NOT DETECT) 04/30/25 12:15 Influenza A (H1) PCR Not detected (NOT DETECT) 04/30/25 12:15 Influ A (H1/09) PCR Not detected (NOT DETECT) 04/30/25 12:15 Influenza A (H3) PCR Not detected (NOT DETECT) 04/30/25 12:15 Influenza Type A (PCR) Not detected (NOT DETECT) 04/30/25 12:15 Influenza Type B (PCR) Not detected (NOT DETECT) 04/30/25 12:15 M. pneumoniae (PCR) Not detected (NOT DETECT) 04/30/25 12:15 Parainfluenza 1 (PCR) Not detected (NOT DETECT) 04/30/25 12:15 Parainfluenza 2 (PCR) Not detected (NOT DETECT) 04/30/25 12:15 Parainfluenza 3 (PCR) Not detected (NOT DETECT) 04/30/25 12:15 Parainfluenza 4 (PCR) Not detected (NOT DETECT) 04/30/25 12:15 RSV Type A (PCR) Not detected (NOT DETECT) 04/30/25 12:15 RSV Type B (PCR) Not detected (NOT DETECT) 04/30/25 12:15 Entero/Rhino (PCR) Not detected (NOT DETECT) 04/30/25 12:15 SARS-CoV-2 (PCR) Not detected (NOT DETECT) 04/30/25 12:15 Blood Type A Positive 05/02/25 09:39 Rho(D) Type Rh positive 05/02/25 09:39 Antibody Screen Negative 05/02/25 09:39 LORETO, Poly Interpret Negative 05/02/25 02:04 Crossmatch See Detail 05/02/25 09:39 Vitals Last Vital Signs Temp 100.2 F H 05/03/25 03:02 Pulse 84 05/03/25 09:21 Resp 16 05/03/25 09:21 BP 168/76 05/03/25 07:25 Pulse Ox 94 05/03/25 09:21 O2 Del Method Room Air 05/03/25 09:21 O2 Flow Rate 1 05/03/25 03:02 FiO2 40 05/01/25 00:00 Discharge Plan Discharge Patient Disposition: Home Condition: Stable Prescriptions: New aspirin 81 mg Tablet,Delayed Release (Dr/Ec) 81 mg PO DAILY Qty: 30 0RF atorvastatin 40 mg Tablet 40 mg PO BEDTIME Qty: 30 0RF hydralazine 25 mg Tablet 50 mg PO TID 30 Days Qty: 180 0RF dapagliflozin propanediol [Farxiga] 10 mg tablet 10 mg PO DAILY Qty: 30 0RF furosemide [Lasix] 40 mg tablet 40 mg PO DAILY PRN (Reason: weight gain) Qty: 20 0RF isosorbide mononitrate 30 mg Tablet Extended Release 24 Hr 30 mg PO DAILY Qty: 30 0RF carvedilol 12.5 mg Tablet 12.5 mg PO BID 30 Days Qty: 60 0RF linezolid 600 mg tablet 600 mg PO BID 14 Days Qty: 28 0RF Discontinued ketorolac 10 mg tablet 10 mg PO Q8H PRN (Reason: pain) Qty: 10 0RF Rx Instructions: maximum total duration of 5 days from all oral, intranasal, or parenteral formulations Referrals: Yu Lee APN [Primary Care Provider, Family Practice] - 05/09/25 10:00 am Ethan Trent MD [Physician, Cardiology] - 06/01/25 3:15 pm Giovanni Meier MD [Hospitalist, Oncology] - 1 month Referral Note: Chronic anemia with PKD Discharge Diet: Cardiac Patient Instructions: Furosemide (By mouth) (Lasix), Aspirin (By mouth), Hydralazine (By mouth), Isosorbide Mononitrate (By mouth) (Imdur, Imdur ER, Ismo), Atorvastatin (By mouth) (Lipitor, Atorvaliq), Carvedilol (By mouth) (Coreg, Coreg CR, Hypertenevide-12.5), Linezolid (By mouth) (Zyvox), Dapagliflozin (By mouth) (Farxiga), Anemia (DC), CHF Stoplight, Opioid Safety, Patient Portal & Alexys Instructions Activity Restrictions/Additional Instructions: Check your blood pressures daily at home and maintain a blood pressure diary. Goal BP is less than 140/90 mmhg. Restrict fluid intake to less than 1500 cc, salt intake to less than 2 g daily. Advised to check his weight daily at home. Is advised that weight today would be the dry weight and if body weight increases by around 5 pounds, patient is to take a dose of Lasix daily till body weight comes down to weight today. If not able to come down to dry body weight in 1 week, then is to call cardiology office for further recommendations. Patient was counseled in detail to take medications regularly as prescribed. Discharge Attestations Time Spent in Discharge Care*: greater than 30 min Specific Discharge Activities: educating patient, educating and/or supporting family/caregiver, discussing with pcp/other providers, discussing with manager rn case/social workers/dc planners, documenting/other paperwork and evaluating patient/reviewing data Status at Discharge: Cognitive status at discharge: cognitively intact , Behavioral status at discharge: cooperative , Functional status at discharge: independent ambulation , Overall status at discharge: patient is back to baseline Quality Metrics Clinical Quality Measures [ No reported AMI, CVA or VTE this stay] Coding Level of Care Code 30064 Total time (in minutes) for Discharge: 65 Diagnoses NSTEMI (non-ST elevated myocardial infarction) I21.4 Acute hypercapnic respiratory failure J96.02 CHF exacerbation I50.9 Accelerated hypertension I10 Acute kidney injury N17.9 Anemia D64.9 Pyruvate kinase (PK) deficiency anemia D55.21 Post-splenectomy Z90.81 Obstructive sleep apnea G47.33 Multifocal pneumonia J18.8 Paroxysmal atrial fibrillation with rapid ventricular response I48.0 Noncompliance Z91.199 Mass of right kidney N28.89 Type 2 diabetes mellitus E11.9 CHF (congestive heart failure), NYHA class III I50.9
[2025-05-03] MEDS: diclofenac 1% Topical Gel 100 gm 1 APPLIC TOPICAL (09:34)
--- NOTE | 2025-05-03 11:02 | P.PN_ITS ---
<Statement entered by Philomena Espinal MD - 05/04/25 20:20> Patient was evaluated and cared for in conjunction with an advanced practice practitioner. I personally examined the patient and reviewed the chart and all pertinent data including imaging, telemetry, and laboratory results. I discussed the patient in detail with the advanced practice practitioner. Please see their note for complete H&P testing result and agreed upon plan of care for the patient. I detailed discussion with the patient and discussed the findings of stress test. Stress test has small area of reversibility/ischemia in the distal RCA which could be an artifact given it is a blockage it is a very small area given his history of CKD and creatinine there is no indication for left heart cath at this point at the same time patient is feeling better on medical management. Patient however has been advised in case of worsening or shortness of breath chest pain he can always call us and come to see us or go to the ER GENERAL: Patient is alert, awake and oriented x3. HEART: Regular S1 and S2. No murmur, rub or gallop. LUNGS: Clear to auscultate bilaterally. CENTRAL NERVOUS SYSTEM: Grossly nonfocal. EXTREMITIES: Lower extremities with out edema bilaterally. Assessment and plan Elevated cardiac marker Chest pain Hypertension Chronic kidney disease We have optimized the medications will see patient in the clinic in 7 days. Subjective 2 Subjective: He had stress test this morning: small reversible defect in distal RCA territory, diffuse hypokinesia of the left ventricle, likely nonischemic cardiomyopathy. EKG portion of stress test does not show ischemia. Hemoglobin 8.5, creatinine increased to 2.4. He received blood?transfusion yesterday. He appears euvolemic. Mild chest pressure during stress test. Vitals/I&O/Wt Last Vital Signs Temp 98.0 F 05/03/25 08:00 Pulse 84 05/03/25 09:21 Resp 16 05/03/25 09:21 BP 144/79 05/03/25 08:00 Pulse Ox 94 05/03/25 09:21 O2 Del Method Room Air 05/03/25 09:21 O2 Flow Rate 1 05/03/25 03:02 FiO2 40 05/01/25 00:00 05/02/25 05/03/25 05/03/25 22:59 06:59 14:59 Intake Total 705 / 1305 Output Total 150 / 550 400 / 550 Balance 555 / 755 -400 / 755 Weight last 48 hrs Weight 238 lb 9.6 oz Weight 238 lb 9.6 oz Weight 245 lb 9.6 oz Weight 245 lb 9.6 oz Physical Exam 2 Const: COMMON NORMALS: no acute distress and patient oriented x3 GENERAL APPEARANCE: cooperative and comfortable ORIENTATION/CONSCIOUSNESS: Yes awake, Yes oriented to person, Yes oriented to place and Yes oriented to time Chest: COMMONS NORMALS: normal inspection of the chest and normal palpation of entire chest wall CHEST: Yes Symmetrical chest wall rise Resp: COMMON NORMALS: normal respiratory effort, No retractions, No use of accessory muscles and clear to auscultation bilaterally EFFORT & INSPECTION: Yes symmetric chest movement AUSCULTATION: clear to auscultation bilaterally Cardio: COMMON NORMALS: regular rate, regular rhythm, S1 normal heart sound present, S2 normal heart sound present, No gallops present (Cardio), No clicks present (Cardio), No murmurs present (Cardio) and No rub (Cardio) RATE: r egular rate RHYTHM: regular rhythm HEART SOUNDS: S1 normal heart sound present and S2 normal heart sound present PERIPHERAL PULSES: radial pulses present Extremity: COMMON NORMALS: no pedal edema Neuro: COMMON NORMALS: patient oriented x3 and moves all extremities S ENSORIUM/ORIENTATION: Yes oriented to person, Yes oriented to place and Yes oriented to time Data 05/03/25 03:00 05/03/25 03:00 Micro: Microbiology 05/03/25 10:20 Blood Culture - Preliminary Blood SPECIMEN COLLECTED 05/03/25 10:17 Blood Culture - Preliminary Blood SPECIMEN COLLECTED 04/30/25 08:38 Blood Culture - Final Blood Staphylococcus epidermidis 05/01/25 13:02 Blood Culture - Preliminary Blood NEGATIVE TO DATE 05/01/25 13:00 Blood Culture - Preliminary Blood NEGATIVE TO DATE A&P Assessment and plan 1. NSTEMI (non-ST elevated myocardial infarction): 2. Type 2 diabetes mellitus: 3. Pyruvate kinase (PK) deficiency anemia: 4. Anemia: Plan: No chest pain currently, stress test not showing significant ischemia, there is a small area in the distal RCA with reversibility which could represent apical thinning or artifact. He can discharge home. Continue carvedilol, change Lasix to 40mg daily since he has LV dysfunction. Renal function prohibits Entresto at this time. Farxiga added by hospitalist service. Continue aspirin, statin, isosorbide mononitrate, hydralazine. Follow up in [address] Espinal. If he develops any recurrence of chest pain, will recommend coronary angiogram. PDMP PDMP Reviewed: Not Reviewed Attestations 2 Medical Necessity Statement*: probable discharge Coding Level of Care Code Acute Code for g Fwd Diagnoses NSTEMI (non-ST elevated myocardial infarction) I21.4 Type 2 diabetes mellitus E11.9 Pyruvate kinase (PK) deficiency anemia D55.21 Anemia D64.9
--- NOTE | 2025-05-03 12:05 | NMCV_ITS ---
NM tree perf SPECT r/s* [id number] Ernie Plasencia Age: 59 Gender: M : 1965 Exam Date: 05/03/2025 06:38 Ordering Phys: Kelly Negrete Technologist: SUDHA Branham Exam Location: [facility] Indications: cp STRESS TEST Please see separate stress test report in Eph[facility] for full findings IMAGE PROTOCOL Rest/Stress 1 Lexiscan Day Radiopharmaceutical Dose (mCi) Administration Site Administered by Rest: Tc-99m 10.9 IV SUDHA Branham Sestamibi Stress:Tc-99m 32.9 IV SUDHA Gtz Sestamibi Rest: 03-May-2025 60 Discovery 630 Stress: 03-May-2025 30 Discovery 630 0.4mg Lexiscan. Images obtained in supine and prone position. SPECT RESULTS Technical Quality: Good Raw Data Analysis: Normal Image Corrections: No attenuation or motion correction applied Summed Stress Score: 2 Summed Rest Score: 1 Summed Difference Score: 2 PERFUSION FINDINGS A small area of moderately decreased tracer uptake involving the apical inferior segment with reversibility. FUNCTIONAL RESULTS (calculated via Gated SPECT) Stress Image LV EF (%): 36 Stress EDV (mL):221 TID: 0.91 Stress ESV (mL):141 FUNCTIONAL FINDINGS: Segmental wall motion analysis revealing diffuse hypokinesia of the left ventricle IMPRESSIONS 1. Myocardial perfusion imaging revealing a small area of reversible defect involving the apical inferior segment suggesting ischemia in the distribution of the distal right coronary artery 2. Diminished LV ejection fraction of 36% 3. Segmental wall motion analysis revealing diffuse hypokinesia of the left ventricle 4. Moderately dilated LV cavity with an end-systolic volume of 141 mL The above features may suggest a nonischemic form of cardiomyopathy with a possible small area of ischemia in the distribution of the right coronary artery Dr Sera Benjamin MD FACC (Electronically Signed) Final Date: 03 May 2025 09:20 S
[2025-05-03 12:45] LABS: Coronavirus 229E,HKU1,NL63,OC4 Not Detected (NOT DETECT); Parainfluenza Virus Type 1 Not Detected (NOT DETECT); Parainfluenza Virus Type 2 Not Detected (NOT DETECT); Parainfluenza Virus Type 3 Not Detected (NOT DETECT); Parainfluenza Virus Type 4 Not Detected (NOT DETECT); SARS-COV-2 Not Detected (NOT DETECT)
== END 2025-05-03 16:35 | disposition home or self-care (01) | DRG 280 ==
LOC: ER 06:33 → ICU 08:51 → CSU 05-01 17:13
PROVIDERS: Internal Medicine; Admitting Provider Internal Medicine; Emergency Provider Emergency Medicine; PCP Nurse Practitioner Family; Visit Provider Student in an Organized Health Care Education/Training Program
DX: I21.4 Non-ST elevation (NSTEMI) myocardial infarction (principal); I50.33 Acute on chronic diastolic (congestive) heart failure; J96.01 Acute respiratory failure with hypoxia; J96.02 Acute respiratory failure with hypercapnia; J18.9 Pneumonia, unspecified organism; I13.0 Hypertensive heart and chronic kidney disease with heart failure and stage 1 through stage 4 chronic kidney disease, or unspecified chronic kidney disease; N17.9 Acute kidney failure, unspecified; I47.10 Supraventricular tachycardia, unspecified; E11.22 Type 2 diabetes mellitus with diabetic chronic kidney disease; D69.6 Thrombocytopenia, unspecified; Z96.642 Presence of left artificial hip joint; Z90.49 Acquired absence of other specified parts of digestive tract; Z83.3 Family history of diabetes mellitus; Z82.3 Family history of stroke; Z82.49 Family history of ischemic heart disease and other diseases of the circulatory system; Z83.438 Family history of other disorder of lipoprotein metabolism and other lipidemia; N28.89 Other specified disorders of kidney and ureter; G47.33 Obstructive sleep apnea (adult) (pediatric); D55.21 Anemia due to pyruvate kinase deficiency; Z86.73 Personal history of transient ischemic attack (TIA), and cerebral infarction without residual deficits; I48.0 Paroxysmal atrial fibrillation; Z91.199 Patient's noncompliance with other medical treatment and regimen due to unspecified reason; N18.30 Chronic kidney disease, stage 3 unspecified
CPT/HCPCS: 36415; 36416; 36600; 71045; 71046; 71250; 74176; 76770; 78452; 80048; 80051; 80053; 80061; 80503; 81003; 82009; 82330; 82436; 82570; 82607; 82728; 82746; 82805; 82962; 83010; 83036; 83540; 83550; 83605; 83615; 83735; 83880; 84100; 84133; 84300; 84443; 84484; 85025; 85045; 85378; 85730; 86850; 86880; 86900; 86920; 87040; 87077; 87186; 87205; 87486; 87581; 87633; 93005; 93017; 93306; 93970; 94660; 94664; 94760; 94799; 96365; 96367; 96372; 96375; 99291; A9500; J0360; J1644; J1756; J1815; J1938; J1956; J2020; J2185; J2270; J2470; J2785; J3475; J3490; J7050; J7120; J9999; P9016

== ENCOUNTER 2025-06-02 18:47 | Emergency (ER) | payer OTHER, SELFPAY ==
--- OUTSIDE RECORDS SUMMARY | 2025-06-02 18:52 | XMS_ITS | Clinical Summary ---
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 Gender Identity Not on file Sexual Orientation [...] (#1) 2025 Medical Devices Implanted Type Area Petroleum Geology Faculty Member Device Identifier Shelf Expiration Date Model / Serial / Lot Cup Pinn Sctr Series 56mm 1217-22-056 - [id number] Implanted:Qty: 1 on 02/07/2017 by Jeremy Coyne MD Hip Left: Hip [employer] 12/01/2026 6 / / [id number] Head Fem Art/Carlos Cer Sz36 1365-36-320 - [id number] Implanted:Qty: 1 on 02/07/2017 by Jeremy Coyne MD Hip Left: Hip [employer] REBA 11/01/2021 1365-36- 32 0 / / [id number] Hole Eliminator [place] 1246-03-000 - [id number] Implanted:Qty: 1 on 02/07/2017 by Jeremy Coyne MD Hip Left: Hip [employer] 09/03/2026 0 / / [id number] Liner Pinn Altrx Poly 1221-36-056 - [id number] Implanted:Qty: 1 on 02/07/2017 by Jeremy Coyne MD Hip Left: Hip [employer] 11/01/2021 6 / / [id number] Stem Fem Actis Hi Colr Sz5 1010-12-050 - [id number] Implanted:Qty: 1 on 02/07/2017 by Jeremy Coyne MD Hip Left: Hip [employer] 11/01/2025 1010-07-08 0 / / [id number] Procedures Procedure Name Priority Date/Time Associated Diagnosis Comments HEMOGLOBIN A1C Routine 01/10/2017 11:10 AM CDT from Last 3 Months or Most Recently Relevant to Health Maintenance Results * (ABNORMAL) HEMOGLOBIN A1C (01/10/2017 11:10 AM CDT) HEMOGLOBIN A1C 6.3(H) 4.0 - 6.0 % 01/10/2017 11:53 AM CDT [facility] EST. AVG GLUCOSE, A1C 134 mg/dL 01/10/2017 11:53 AM CDT [facility] Blood Collection / Unknown 01/10/2017 11:10 AM CDT 01/10/2017 11:37 AM CDT us Vipin Reddy MD CHEMISTRY ORDERABLES Final Resu lt [facility] #[id number] [address] [address] [facility] #[id number] [address] [address] from Last 3 Months or Most Recently Relevant to Health Maintenance Insurance [facility] OPTIONS PPO [id number] CHOICE PLUS * Guarantor: ERNIE GARCIA Account Type Relation to Patient Date of Phone Billing Address Personal/Family [address] [address] Care Teams Senior Telecommunications Technician Relationship Specialty Start Date End Date Umair Milton MD [address] [address] [place] [address] PCP - General Hop Separator 02/07/17
--- OUTSIDE RECORDS SUMMARY | 2025-06-02 18:52 | XMS_ITS | Clinical Summary ---
Author Organization [facility] Address [address] [place] [address] Phone Care Team Providers Care Reception Name Role Phone Umair Milton MD Primary Care Provider [phone] Allergies No known active allergies Medications allopurinol (ZYLOPRIM) 300 mg tablet Take 300 mg by mouth 2 times daily . 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 Active niacin (NIACOR) 50 mg Tablet Take [...] 36.9 C (98.4 F) 09/18/2017 1:21 PM DEMURRAGE CLERK Respiratory Rate 20 07/10/2017 1:10 PM DEMURRAGE CLERK Oxygen Saturation 97% 07/10/2017 1:10 PM DEMURRAGE CLERK Inhaled Oxygen Concentration - - Weight 111.1 [...] (#1) 2025 Medical Devices Implanted Type Area Elementary Educator Device Identifier Shelf Expiration Date Model / Serial / Lot Cup Pinn Sctr Series 56mm 1217-22-056 - [id number] Implanted:Qty: 1 on 02/07/2017 by Jeremy Coyne MD at [facility] Hip Left: Hip [employer] 12/01/2026 6 / / [id number] Hole Eliminator [place] 1246-03-000 - [id number] Implanted:Qty: 1 on 02/07/2017 by Jeremy Coyne MD at [facility] Hip Left: Hip [employer] 09/03/2026 0 / / [id number] Stem Fem Actis Hi Colr Sz5 1010-12-050 - [id number] Implanted:Qty: 1 on 02/07/2017 by Jeremy Coyne MD at [facility] Hip Left: Hip [employer] 11/01/2025 1010-07-08 0 / / [id number] Head Fem Art/Carlos Cer Sz36 1365-36-320 - [id number] Implanted:Qty: 1 on 02/07/2017 by Jeremy Coyne MD at [facility] Hip Left: Hip [employer] REBA 11/01/2021 1365-36-3 2 0 / / [id number] Liner Pinn Altrx Poly 1221-36-056 - [id number] Implanted:Qty: 1 on 02/07/2017 by Jeremy Coyne MD at [facility] Hip Left: Hip [employer] 11/01/2021 6 / / [id number] Procedures Procedure Name Priority Date/Time Associated Diagnosis Comments HEMOGLOBIN A1C Routine 01/10/2017 11:10 AM CDT from Last 3 Months or Most Recently Relevant to Health Maintenance Results * (ABNORMAL) HEMOGLOBIN A1C (01/10/2017 11:10 AM CDT) HEMOGLOBIN A1C 6.3(H) 4.0 - 6.0 % 01/10/2017 11:53 AM CDT [facility] EST. AVG GLUCOSE, A1C 134 mg/dL 01/10/2017 11:53 AM CDT [facility] Blood Collection / Unknown 01/10/2017 11:10 AM CDT 01/10/2017 11:37 AM CDT us Vipin Reddy MD CHEMISTRY ORDERABLES Final Resu lt [facility] CLIA #[id number] [address] [place], [place] [address] from Last 3 Months or Most Recently Relevant to Health Maintenance Insurance [employer] LOCAL Advance Directives For more information, please contact: [phone] * Full Code (Latest Code Status on [...] 11:47 AM 02/08/2017 3:55 PM Care Teams Reception Relationship Specialty Start Date End Date Umair Milton MD [address] [place] [address] [place] [address] PCP - General Milieu Technician 02/07/17
[2025-06-02 18:53] VITALS: BP 111/75; PULSE 141; TEMP 36.7; O2SAT 96; BMI 33.0
--- NOTE | 2025-06-02 19:17 | ECG_ITS ---
[facility] Test Date: 2025-06-02 Pat Name: Ernie Plasencia Department: Room: Gender: Male Consignee: : 1965 Requested By: Rosie Gutierrez Order Number: [id number] Summers MD: Ethan Trent M.D. Measurements Intervals [place] Rate: 148 P: 0 DC: 0 QRS: 32 QRSD: 88 T: 181 QT: 277 QTc: 435 Interpretive Statements ATRIAL FLUTTER/TACHYCARDIA WITH RAPID VENTRICULAR RESPONSE ST DEVIATION AND MODERATE T-WAVE ABNORMALITY, CONSIDER LATERAL ISCHEMIA [-0.1+ mV T-WAVE IN I/aVL/V5/V6] INTERPRETATION BASED ON A DEFAULT AGE OF 40 YEARS Compared to ECG 04/30/2025 12:55:36 Possible ischemia now present Sinus rhythm no longer present T-wave abnormality still present Electronically Signed On 06-04-2025 20:49:42 CDT by Ethan Trent M.D. [id number]
--- NOTE | 2025-06-02 19:17 | XRR_ITS ---
PROCEDURE INFORMATION: Exam: XR Chest Exam date and time: 06/02/2025 7:22 PM Age: 59 years old Clinical indication: Pain; Angina pectoris; Additional info: Chest pain TECHNIQUE: Imaging protocol: Radiologic exam of the chest. Views: 1 view. COMPARISON: CR XR chest 2V* [id number] 05/01/2025 1:58 PM FINDINGS: Lungs: Unremarkable. No consolidation. Pleural spaces: Unremarkable. No pleural effusion. No pneumothorax. Heart/Mediastinum: Unremarkable. No cardiomegaly. Diaphragm: There is nonspecific elevation of the left hemidiaphragm. Bones/joints: Unremarkable. XR/XR chest 1V portable [id number] IMPRESSION: No acute findings.
[2025-06-02 19:44] LABS: Hematocrit 26.1 % (37-53); Hemoglobin 8.40 g/dL (11.27-16.99); Mean Corpuscular HGB Conc 32.2 g/dL (30-55); Mean Corpuscular Hemoglobin 34.0 pg (27-33); Mean Corpuscular Volume 105.7 fl (82-101); Nucleated Red Blood Cells % 0.2 %; Platelet Count 403 10^3/cmm (157-399); Red Blood Count 2.47 10^6/uL (3.85-5.65); White Blood Count 13.17 10^3/uL (3.29-11.43)
--- NOTE | 2025-06-02 19:48 | ED_ITS ---
HPI - Arrhythmia/Palpitations 2 General: Chief Complaint: Arrhythmia/Palpitations Stated Complaint: Fast heart rate, fatigue Time Seen by Provider: 06/02/25 19:09 History of Present Illness: Selected Entries 06/02/25 18:53 ED Triage Comment PT ARRIVES POV C/O HIGH HR THAT STAR RENU THIS MORNING. PT HAS HX OF SAME WITH CARDIOVERSION TOO. DENIES HAVIN G ANY MEDS FOR IT. PT IS A&O AT THIS TIME WITH PATENT AIRWAY AND EVEN RE SPIRATIONS. Patient thinks what brought this on his last p.m. he took some potassium [id number], and started having this a.m. after consumption last night. He did not have chest pain. He had palpitations. No increase in shortness of breath. No recent cold, illness. [id number] equals 1 point, CHF. Echocardiogram 04/30/2025: Reduction in EF to 40%, previously normal, with global hypokinesis 04/30/25 stress test: I detailed discussion with the patient and discussed the findings of stress test. Stress test has small area of reversibility/ischemia in the distal RCA which could be an artifact given it is a blockage it is a very small area given his history of CKD and creatinine there is no indication for left heart cath at this point at the same time patient is feeling better on medical management. Patient however has been advised in case of worsening or shortness of breath chest pain he can always call us and come to see us or go to the ER Associated symptoms: Deny anxiety, nausea or vomiting Related Data Previous Rx's ?Medication ?Instructions ?Recorded aspirin 81 mg tablet,delayed 81 mg PO DAILY #30 tabs 0 05/03/25 release atorvastatin 40 mg tablet 40 mg PO BEDTIME #30 tabs dapagliflozin propanediol 10 mg 10 mg PO DAILY #30 tab s 05/03/25 tablet (Farxiga) furosemide 40 mg tablet (Lasix) 40 mg PO DAILY PRN skye ght gain #20 05/03/25 tabs isosorbide mononitrate 30 mg 30 mg PO DAILY #30 tabs 0 05/03/25 tablet,extended release 24 hr citalopram 20 mg tablet 20 mg PO DAILY #90 tabs 10/03/28 metoprolol succinate 25 mg 25 mg PO DAILY #30 tabs 10/ 30/25 tablet,extended release 24 hr Allergies Allergy/AdvReac Type Severity Reaction Status Date / Time Calcium Channel Blocking Allergy Unknown Verified 06/02/25 19:04 Agent Dilt Review of Systems 2 General: Reports: 10 or more systems reviewed and unremarkable except in HPI and below Const: Denies: fever(s) or chills Eyes: Denies: change in vision or blurry vision ENMT: Denies: throat pain, mouth pain or post nasal drip Card: Denies: chest pain or palpitations Resp: Denies: dyspnea or non-productive cough GI: Denies: abdominal pain, nausea or vomiting : Denies: flank pain or difficulty urinating Musc: Denies: neck pain, back pain or extremity pain Skin/Breast: Denies: rash or pruritus Neuro: Denies: headache(s) or numbness in extremities Psych: Denies: anxiety or depression PFSH ED 2 PFSH: Medical History (Updated 06/02/25 @ 23:33 by STANFORD Groves) NSTEMI (non-ST elevated myocardial infarction) Mass of right kidney Noncompliance Acute hypercapnic respiratory failure Obstructive sleep apnea Attention deficit disorder Type 2 diabetes mellitus Sepsis Erectile disorder due to medical condition in male Cardiac left ventricular ejection fraction greater than or equal to 40 percent Actinic keratosis Seborrheic keratosis Pyruvate kinase (PK) deficiency anemia On continuous oral anticoagulation Recurrent cerebrovascular accidents (CVAs) Paroxysmal atrial fibrillation with rapid ventricular response Atrial flutter Acute kidney injury Macrocytic anemia Leukocytosis Febrile Leg pain, left Tick bite Basilar artery stenosis Vertebrobasilar ischemia Hyperlipidemia Gout Hx of ischemic vertebrobasilar artery brainstem stroke (2012) Hypertension Surgical History Post-splenectomy History of colonoscopy (2014) History of bone marrow biopsy (01/07/14) Bone marrow aspiration and biopsy at [facility] H/O knee surgery Left knee cap repair - JAVON Taylor - Dr. 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 Daughter Anesthesia complication Mother Cancer Lung Other Diabetes Hyperlipidemia Hypertension Stroke Denies family history of CAD (coronary artery disease) Clotting disorder Dementia Psychiatric illness Chronic kidney disease (CKD) Suicide Bleeding disorder Lung disease Social History Smoking and tobacco/nicotine status: never used tobacco/nicotine Alcohol intake: never Substance/Drug Use: never Additional social history: Patient wants full code as discussed today with Boogie Griffith MD on 04/30/2025. His next of kin is daughter Daija. 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 He also helps his own kids running errands etc. they are ages 37, 35 and 27. He states he is not as active after his stroke service: Yes Current occupation: [employer]) Physical Exam 2 Const: COMMON NORMALS: no acute distress, average body habitus and patient oriented x3 HENMT: COMMON NORMALS: normocephalic and atraumatic HEAD & SCALP: n ormocephalic and atraumatic Neck/C-Spine: COMMON NORMALS: full ROM, no lymphadenopathy, supple and no meningeal signs Lymph: LYMPHATIC: no lymphadenopathy noted Resp: COMMON NORMALS: normal respiratory effort, No retractions and clear to auscultation bilaterally AUSCULTATION: clear to auscultation bilaterally Cardio: COMMON NORMALS: regular rate and regular rhythm RATE: regular rate RHYTHM: regular rhythm GI: COMMON NORMALS: Normal to inspection, nondistended, normoactive bowel sounds present, Soft to palpation, non-tender and No hepatosplenomegaly present PALPATION: Yes Soft to palpation and Yes No hepatosplenomegaly present : COMMON NORMALS: Yes no CVA tenderness BLADDER/KIDNEY EXAM: Yes no CVA tenderness Back/Pelvis: COMMON NORMALS: no CVA tenderness Extremity: COMMON NORMALS: normal to inspection, full ROM and capillary refill normal Neuro: ADELAIDA COMA SCALE: document GCS findings COMMON NORMALS: patient oriented x3 and CN's II-XII intact bilaterally MENINGEAL SIGNS: Yes no meningeal signs Psych: COMMON NORMALS: mental status grossly normal, Normal thought process present and cooperative THOUGHT PROCESS: Normal thought process present Skin: COMMON NORMALS: no rashes or lesions noted GENERAL SKIN EXAM: no rashes or lesions noted Course 2 Reevaluation(s): Reevaluation #1: Heart rate down to 107 doses and metoprolol p.o. Will reevaluate shortly. Reevaluation #2: Heart rate back up to 123, will proceed with third dose of metoprolol 5 mg IV. Vital Signs: Vital signs: Vital Signs Temperature 98.0 F 06/02/25 18:53 Pulse Rate 89 06/02/25 23:28 Respiratory Rate 16 06/02/25 23:28 Blood Pressure 113/73 06/02/25 23:28 Pulse Oximetry 97 06/02/25 23:28 Oxygen Delivery Me thod Room Air 06/02/25 23:28 MDM - Arrhythmia/Palpitations Medical Decision Making Patient is a 59-year-old gentleman with history of atrial fibrillation and [id number] of 1, detailed above with stress test 04/30, nonischemic, CHF with HFrEF recently to 40%, previously preserved, presents to the emergency room with palpitations for approximately 10 hours. He did have A-fib RVR with rate of 140s. This converted after metoprolol 5 mg IV push x 2, and metoprolol tartrate. Blood pressure is stable at 122/67, he is in sinus rhythm, with rate of 68. I have sent metoprolol succinate to the pharmacy to take once daily, with parameters. I explained this to the patient. I have also made a referral to case management for early referral to cardiology with the current management, approval, and continuum of care. He is happy to go home tonight. His anemia is chronic. His previous hemoglobin was also 8.5, most likely due to his chronic kidney disease, current creatinine 1.8. He did respond to giving him back fluids slowly at a soft bolus of 500 mL. His CKD however does appear to be close to the baseline that is somewhat erratic ranging from 1.2?2.8 creatinine. In any event, he is improved, back in sinus rhythm, and will send to cardiology, continue metoprolol succinate. Medical Records I reviewed the patient's medical records. Lab Data I reviewed the patient's lab results. 06/02/25 19:22 06/02/25 19:22 Radiology Impressions Chest X-Ray 06/02/25 19:17 IMPRESSION: No acute findings. Laboratory Results WBC 13.17 10^3/uL (3.29-11.43) H 06/02/25 19:22 RBC 2.47 10^6/uL (3.85-5.65) L 06/02/25 19:22 Hgb 8.40 g/dL (11.27-16.99) L 06/02/25 19:22 Hct 26.1 % (37-53) L 06/02/25 19:22 MCV 105.7 fl (82-101) H 06/02/25 19:22 MCH 34.0 pg (27-33) H 06/02/25 19:22 MCHC 32.2 g/dL (30-55) 06/02/25 19: RDW 15.6 % (12.1-15.1) H 06/02/25 19: Plt Count 403 10^3/cmm (157-399) H 06/02/25 19:22 MPV 11.8 fL (7.4-10.4) H 06/02/25 19:22 Neut % (Auto) 65.0 % 06/02/25 19:22 Lymph % (Auto) 20.4 % 06/02/25 19:22 [place] % (Auto) 12.1 % 06/02/25 19:22 Eos % (Auto) 1.4 % 06/02/25 19:22 Baso % (Auto) 0.5 % 06/02/25 19:22 Neut # (Auto) 8.55 10^3/uL (1.8-7.7) H 06/02/25 19:22 Lymph # (Auto) 2.7 10^3/uL (0.8-4.8) 06/02/25 19:22 [place] # (Auto) 1.6 10^3/uL (0.2-0.9) H 06/02/25 19:22 Eos # (Auto) 0.2 10^3/uL (0.0-0.8) 06/02/25 19:22 Baso # (Auto) 0.1 10^3/uL (0.0-0.1) 06/02/25 19:22 Nucleated RBC % (auto) 0.2 % 06/02/25 19: Nucleated RBCs # 0.0 /100WBC 06/02/25 19:22 Sodium 141 mmol/L (136-145) 06/02/25 19:22 Potassium 4.9 mmol/L (3.5-5.1) 06/02/25 19:22 Chloride 109 mmol/L (98-107) H 06/02/25 19:22 Carbon Dioxide 18 mmol/L (22-29) L 06/02/25 19:22 Anion Gap 18.9 (5-19) 06/02/25 19:22 BUN 47 mg/dL (6-20) H 06/02/25 19:22 Creatinine 1.8 mg/dL (0.7-1.2) H 06/02/25 19:22 GFR Calculation 39.1 mL/min (90-130) L 06/02/25 19:22 Glucose 128 mg/dL (65-115) H 06/02/25 19:22 Calculated Osmolality 306 mOsm/kg (285-295) H 06/02/25 19:22 Calcium 9.7 mg/dL (8.5-10.5) 06/02/25 19:22 Magnesium 2.0 mg/dL (1.7-2.3) 06/02/25 19:22 Total Bilirubin 1.1 mg/dL (0.15-1.2) 06/02/25 19:22 AST 15 U/L (0-40) 06/02/25 19:22 ALT 19 U/L (0-41) 06/02/25 19:22 Alkaline Phosphatase 88 U/L (40-130) 06/02/25 19:22 Troponin T Baseline 60 ng/L (0-15) H 06/02/25 19:22 Troponin T 120 Minute 53.09 ng/L (0-15) H 06/02/25 21:06 Delta Troponin T -6.91 ABS# (0-10) L 06/02/25 21:06 NT-Pro-B Natriuret Pep 4559 pg/mL (0-125) H 06/02/25 19:22 Total Protein 7.2 g/dL (6.6-8.7) 06/02/25 19:22 Albumin 4.4 g/dL (3.5-5.2) 06/02/25 19:22 Globulin 2.8 g/dL (1.3-4.6) 06/02/25 19:22 TSH 2.31 uIU/mL (0.27-4.20) 06/02/25 19:22 Urine Color Yellow (Yellow) 06/02/25 20:17 Urine Appearance Clear (CLEAR) 06/02/25 20:17 Urine pH 5.0 (5-7) 06/02/25 20:17 Ur Specific [place] 1.012 (1.005-1.030) 06/02/25 20:17 Urine Protein 2+ (Negative) A 06/02/25 20:17 Urine Glucose (UA) Negative (Normal) 06/02/25 20:17 Urine Ketones Negative (Negative) 06/02/25 20:17 Urine Blood Negative (Negative) 06/02/25 20:17 Urine Nitrate Negative (Negative) 06/02/25 20:17 Urine Bilirubin Negative (Negative) 06/02/25 20:17 Urine Urobilinogen 0.2 mg/dL (Negative) 06/02/25 20:17 Ur Leukocyte Esterase Negative (Negative) 06/02/25 20:17 Urine RBC 0-2 /hpf (0-2) 06/02/25 20:17 Urine WBC 0-5 /hpf (0-5) 06/02/25 20:17 Ur Squamous Epith Cells 0-5 /hpf (0-5) 06/02/25 20:17 Amorphous Sediment Not Reportable 06/02/25 20:17 Urine Bacteria None seen /hpf (NONE) 06/02/25 20:17 Hyaline Casts 1.65 /lpf 06/02/25 20:17 All radiology interpretation(s) finalized by discharge Discharge Plan Discharge Patient Disposition: Home Clinical Impression: Atrial fibrillation with RVR Condition: Stable Prescriptions: New metoprolol succinate 25 mg tablet extended release 24 hr 25 mg PO DAILY Qty: 30 0RF No Action citalopram 20 mg tablet 20 mg PO DAILY Qty: 90 3RF atorvastatin 40 mg Tablet 40 mg PO BEDTIME Qty: 30 0RF isosorbide mononitrate 30 mg Tablet Extended Release 24 Hr 30 mg PO DAILY Qty: 30 0RF aspirin 81 mg Tablet,Delayed Release (Dr/Ec) 81 mg PO DAILY Qty: 30 0RF furosemide [Lasix] 40 mg tablet 40 mg PO DAILY PRN (Reason: weight gain) Qty: 20 0RF dapagliflozin propanediol [Farxiga] 10 mg tablet 10 mg PO DAILY Qty: 30 0RF Discharge Orders: Discharge ED (Routine); Ordered 06/02/25 Ordered By: Vicki Herron Referrals: Yu Lee APN [Primary Care Provider, Family Practice] Discharge Diet: Low Salt Patient Instructions: A-fib (Atrial Fibrillation) (ED), Patient Portal & Alexys Instructions Activity Restrictions/Additional Instructions: Follow-up with your cranberry sorter: Case management has been made a referral for early appointment. Please feel free to call your cardiology office as well. I am quite thankful your heart rate decreased without additional medications. Since this is the case, with your function of your heart, the best medication for you is the metoprolol. This is once a day. Take your blood pressure prior to taking your metoprolol to make sure it is greater than 110 on the top number, and your heart rate is greater than 65. If this is not the case, hold the medication until this occurs. It is important to stay compliant to this medication and keep your heart in rhythm. Your cranberry sorter will determine if you are to continue this new medication. Return to ED if this occurs again. Low-salt diet It was great to meet you. Take good care of yourself. Thank you for choosing [facility] for your healthcare needs today. You have been screened and evaluated and felt safe for discharge. Health conditions do change or evolve sometimes and as such it is important that you follow up with your Primary Doctor to be re checked, 3-5 days is a general good time frame for follow up. You are always welcome to return to the ED for re assessment if your symptoms are worsening or you have new concerns Print Language: [place] Islander Coding Level of Care Code ED In Shop Service Technician for Shira Mckinley
[2025-06-02] MEDS: metoprolol tartrate 1 mg/1 mL SDV 5 mL 5 MG IVP ×2 (20:11→20:23)
[2025-06-02 20:12] LABS: Troponin(5th) Baseline 60 ng/L (0-15)
[2025-06-02 20:13] VITALS: BP 125/91; PULSE 144; RESP 18; O2SAT 96
[2025-06-02 20:24] LABS: Alanine Aminotransferase 19 U/L (0-41); Albumin Level 4.4 g/dL (3.5-5.2); Alkaline Phosphatase 88 U/L (40-130); Anion Gap 18.9 (5-19); Aspartate Amino Transferase 15 U/L (0-40); Blood Urea Nitrogen 47 mg/dL (6-20); Calcium 9.7 mg/dL (8.5-10.5); Carbon Dioxide 18 mmol/L (22-29); Chloride 109 mmol/L (98-107); Creatinine Clr Calc Pharmacy 56.4736; Globulin 2.8 g/dL (1.3-4.6); Glucose 128 mg/dL (65-115); Magnesium 2.0 mg/dL (1.7-2.3); NT Pro B Type Natriuretic Pept 4559 pg/mL (0-125); Osmolality Calculated 306 mOsm/kg (285-295); Potassium 4.9 mmol/L (3.5-5.1); Sodium 141 mmol/L (136-145); Thyroid Stimulating Hormone 2.31 uIU/mL (0.27-4.20); Total Protein 7.2 g/dL (6.6-8.7)
[2025-06-02 20:28] VITALS: BP 134/88; PULSE 96; RESP 18; O2SAT 98
[2025-06-02 20:41] LABS: Glucose Urine UA Negative (Normal); Nitrate Urine Negative (Negative); Specific Gravity, Urine 1.012 (1.005-1.030)
--- NOTE | 2025-06-02 21:41 | ECG_ITS ---
[facility] Test Date: 2025-06-02 Pat Name: Ernie Plasencia Department: Room: Gender: Male Neon Technician: : 1965 Requested By: Rosie Gutierrez Order Number: [id number] Melina MD: Ethan Trent M.D. Measurements Intervals [place] Rate: 127 P: 0 FL: 0 QRS: 34 QRSD: 97 T: 140 QT: 282 QTc: 411 Interpretive Statements ATRIAL FLUTTER/TACHYCARDIA WITH RAPID VENTRICULAR RESPONSE MODERATE T-WAVE ABNORMALITY, CONSIDER LATERAL ISCHEMIA [-0.1+ mV T-WAVE IN I/aVL/V5/V6] Compared to ECG 06/02/2025 18:58:56 No significant changes Electronically Signed On 06-04-2025 21:19:27 CDT by Ethan Trent M.D. [email or web address] [id number]
[2025-06-02 21:45] LABS: Troponin 5 2HR 53.09 ng/L (0-15)
[2025-06-02 21:48] LABS: Troponin 5 2HR Delta -6.91 ABS# (0-10)
[2025-06-02 23:28] VITALS: BP 113/73; PULSE 89; RESP 16; O2SAT 97
--- NOTE | 2025-06-02 23:45 | ECG_ITS ---
Xigen Test Date: 2025-06-02 Pat Name: Ernie Plasencia Department: Room: Gender: Male Veneer Puller: : 1965 Requested By: Vicki Herron Order Number: [id number] Summers MD: Ethan Trent M.D. Measurements Intervals [place] Rate: 69 P: 12 MI: 178 QRS: 31 QRSD: 101 T: 95 QT: 364 QTc: 392 Interpretive Statements SINUS RHYTHM NONSPECIFIC ST-T-WAVE ABNORMALITY Compared to ECG 06/02/2025 21:41:33 Atrial flutter no longer present T-wave abnormality still present Electronically Signed On 06-04-2025 20:53:45 CDT by Ethan Trent M.D. [email or web address]
[2025-06-03 00:10] VITALS: BP 114/85; PULSE 81; RESP 16; O2SAT 98
--- NOTE | 2025-06-03 08:50 | DCPLANNER ---
messaged heart care for er f/u
== END 2025-06-03 00:14 | disposition home or self-care (01) ==
PROVIDERS: Emergency Medicine; Emergency Provider Physician Assistant; PCP Nurse Practitioner Family
DX: I48.20 Chronic atrial fibrillation, unspecified (principal); Z79.82 Long term (current) use of aspirin; E78.5 Hyperlipidemia, unspecified; E11.22 Type 2 diabetes mellitus with diabetic chronic kidney disease; I12.9 Hypertensive chronic kidney disease with stage 1 through stage 4 chronic kidney disease, or unspecified chronic kidney disease; N18.9 Chronic kidney disease, unspecified
CPT/HCPCS: 36415; 71045; 80053; 81001; 83735; 83880; 84443; 84484; 85025; 93005; 96374; 96376; 99285; J3490; J7040; J9999

== ENCOUNTER 2025-06-25 06:05 | Emergency (ER) | payer OTHER, SELFPAY ==
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
--- OUTSIDE RECORDS SUMMARY | 2024-10-22 11:00 | XMS_ITS ---
Author Organization [facility], [employer] Address [address] [place] [address] Care Team Providers Care Business Travel Consultant Name Role Phone Yu Lee Primary Care Provider ZE Gamez Unavailable [phone] KAT MUELLER Unavailable [phone] REASON FOR VISIT [address] - OB per Mary Encounters Encounter Location Date Provider Diagnosis [facility] [employer] [address] [place] [address] 10/22/2024 KAT MUELLER Plan Of Treatment No Information Progress Notes * Ernie GARCIA EDOB: [birth year] (59 yo M)Acc No.[id number]:10/22/2024 Progress Notes Patient: Ernie ANAYA Provider: Rebeca Mueller MD :1965 A ge:59 Y S ex:Male Date:10/22/2024 Address:[address] [id number] Pcp:Yu Lee Subjective: * Chief Complaints: * 1 . [address] - OB per Mary. * Medical History: Objective: * Vitals: Assessment: Plan: * Treatment: * Billing Information: * Visit Code: * Procedure Codes: * Electronic signature of EMMANUEL MUELLER MD on 06/25/2025 at 06:09 AM INDUSTRIAL REFRIGERATION MECHANIC Sign off status: Pending * Provider: Rebeca Mueller MD Date: 0 10/22/2024 Generated for Sasha donaldson/Elvin/Hadleyitting on: 1 08/25/2024 06:09 AM INDUSTRIAL REFRIGERATION MECHANIC
--- OUTSIDE RECORDS SUMMARY | 2024-11-02 05:00 | XMS_ITS ---
Author Organization [facility] Address [address] [place] [address] Care Team Providers Care Metal Bonding Assembler Name Role Phone Yu Lee Primary Care Provider YU LEE Unavailable Unavailable REASON FOR VISIT HFU OZH discharge 10/25 IND Left foot Encounters Encounter Location Date Provider Diagnosis [facility] Office [address] [place] [phone] 11/02/2024 Yu Lee Plan Of Treatment No Information Progress Notes * GARCIAErnieDOB: 7 (59 yo M)Acc No.[id number]:11/02/2024 Patient: Ernie Lechuga Provider: Brenda Lee APRN :1965 A ge:59 Y S ex:Male Date:11/02/2024 Address[place] [id number] Subjective: * Chief Complaints: * H FU OZH discharge 10/25 IND Left foot Billing Information: * Procedure Codes: * Electronic signature of Gabrielle Lee APN on 06/25/2025 at 06:08 AM DIRECTOR OF HEALTH EDUCATION Sign off status: Pending * Provider: Brenda Lee APRN Date: 0 11/02/2024 Generated for Sasha donaldson/Elvin/Hadleyitting on: 08/25/2024 06:08 AM DIRECTOR OF HEALTH EDUCATION
--- OUTSIDE RECORDS SUMMARY | 2025-06-25 06:08 | XMS_ITS | Patient Health Record ---
Author Organization [facility], [facility] Address [address] [place] [address] Care Team Providers Care Delinquent Notice Machine Operator Name Role Phone Yu Lee Primary Care Provider UnavailZE Earl Unavailable [phone] KAT MUELLER Unavailable [phone] PANDA HUIZAR Unavailable [phone] Allergies Allergen (clinical drug ingredient) Drug/Non Drug [...] Glucose 1+ Bilirubin - Ketones - Specific [place] 1.015 Occult Blood - pH 6.0 Urine [...] Notes Problem Disorder of kidney and/or ureter (282571388) Right renal mass (N28.89) Active confirmed Vital Signs Height-cm 180.34 cm 10/08/2024 Weight-kg 108.86 kg 10/08/2024 Height 71 in 10/08/2024 Weight 240 lbs 10/08/2024 BMI 33.47 kg/m2 10/08/2024 Encounters Encounter Location Date Provider Diagnosis [facility] [address] [place] [address] 10/08/2024 PANDA HUIZAR Right renal mass N28.89 [facility] [address] [place] [address] 09/27/2024 ZE MAHMOOD [facility] [address] [place] [address] 10/11/2024 PANDA HUIZAR [facility] [address] [place] [address] 10/21/2024 ZE MAHMOOD Assessments Encounter Date Diagnosis [...] & Pelvis [place] & [place] [address] 10/08/2024 Blood Urea Nitrogen (BUN) 10/08/2024 Creatinine Serum 10/08/2024 Insurance Providers Payer Name Payer Address Payer Phone Subscriber Number Group Number Insured Name Patient Relationship to Insured Coverage Start Date Coverage End Date Luis [address]A [address] [place], [place] [id number] Ernie Plasencia Self - patient is the insured Medical (General) History Medical History History ICD Code Renal mass Hypertension Hx of stroke Surgical History Surgery Date(Month/Year) splenectomy left hip replacement left knee repair Hospitalization History Reason Date(Month/Year) Heart issues stroke
--- OUTSIDE RECORDS SUMMARY | 2025-06-25 06:09 | XMS_ITS | Clinical Summary ---
Author Organization [facility] Address [address] [facility] Attn: Epic Prelude ADT [place] [address] Care Team Providers Care Parachute Supervisor Name Role Phone Umair Milton MD Primary Care Provider [phone] Allergies No known active allergies Medications cyclobenzaprine [...] tablet Take 1 mg by mouth daily wool classer. 05/16/2017 Active predniSONE (DELTASONE) 20 mg tablet [...] on file Legal Sex Male 5:19 AM [employer] Gender Identity Not on file Sexual Orientation [...] (#1) 2025 Medical Devices Implanted Type Area Engine Inspector Device Identifier Shelf Expiration Date Model / Serial / Lot Cup Pinn Sctr Series 56mm 1217-22-056 - [id number] Implanted:Qty: 1 on 02/07/2017 by Jeremy Coyne MD Hip Left: Hip [employer] 12/01/2026 6 / / [id number] Head Fem Art/Carlos Cer Sz36 1365-36-320 - [id number] Implanted:Qty: 1 on 02/07/2017 by Jeremy Coyne MD Hip Left: Hip [employer]BA 11/01/2021 1365-36- 32 0 / / [id number] Hole Eliminator [place] 1246-03-000 - [id number] Implanted:Qty: 1 on 02/07/2017 by Jeremy Coyne MD Hip Left: Hip [employer] 09/03/2026 0 / / [id number] Liner Pinn Altrx Poly 1221-36-056 - [id number] Implanted:Qty: 1 on 02/07/2017 by Jeremy Coyne MD Hip Left: Hip [employer] 11/01/2021 6 / / [id number] Stem Fem Actis Hi Colr Sz5 1010-12-050 - [id number] Implanted:Qty: 1 on 02/07/2017 by Jeremy Coyne MD Hip Left: Hip [employer] 11/01/2025 1010-07-08 0 / / [id number] Procedures Procedure Name Priority Date/Time Associated Diagnosis Comments HEMOGLOBIN A1C Routine 01/10/2017 11:10 AM CDT from Last 3 Months or Most Recently Relevant to Health Maintenance Results * (ABNORMAL) HEMOGLOBIN A1C (01/10/2017 11:10 AM CDT) HEMOGLOBIN A1C 6.3(H) 4.0 - 6.0 % 01/10/2017 11:53 AM CDT [facility] EST. AVG GLUCOSE, A1C 134 mg/dL 01/10/2017 11:53 AM CDT [facility] Blood Collection / Unknown 01/10/2017 11:10 AM CDT 01/10/2017 11:37 AM CDT us Vipin Reddy MD CHEMISTRY ORDERABLES Final Resu lt [facility] #[id number] [address] [address] [facility] #[id number] [address] [place] [address] from Last 3 Months or Most Recently Relevant to Health Maintenance Insurance [facility] OPTIONS PPO [id number] CHOICE PLUS * Guarantor: ERNIE GARCIA Account Type Relation to Patient Date of Phone Billing Address Personal/Family [address] [address] Care Teams Parachute Supervisor Relationship Specialty Start Date End Date Umair Milton MD [address] [address] [place] [id number] PCP - General Agricultural Produce Commission Agent 02/07/17
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
--- OUTSIDE RECORDS SUMMARY | 2025-06-25 06:09 | XMS_ITS | Data Portability ---
Author Organization [facility], Telemedicine Address [address] [address] Assessment No assessment recorded. Plan of Treatment Reminders Order Date Submit Date Provider Last Modified By Organization Details Last Modified Time Details Appointments None recorded. Lab HbA1c (hemoglobin A1c), blood 2020 021 STURAT Not available 07:13:24 venipunctur e 2020 021 [...] ist referral 2020 021 Jenifer Thompson MD, [facility] Rheumatology, [address], [address], 12:50:02 Procedures None recorded. Surgeries None recorded. Imaging XR, chest, 2 view 2020 021 [email or web address] Umair Milton MD, [address], [address], [place], [address], 15:28:15 Medication Orders Trulicity 1.5 mg/0.5 mL subcutaneou s pen injector 2020 [facility] #[id number], [address], [place], [place], [id number], 10:53:04 losartan 50 mg tablet 2020 [facility] #95981, [address], [place], [place], [id number], 11:10:30 ketorolac 60 mg/2 mL intramuscul ar solution 2020 021 [email or web address] Not available 10:51:16 naproxen 500 mg tablet 2020 021 [facility] #39581, [address], [place], [place], [id number], 16:36:32 losartan 100 mg tablet 2020 021 [facility] #20935, [address], [place], [place], [id number], 10:49:49 Bactrim DS 800 mg-160 mg tablet 2020 021 [email or web address] [facility] #94146, [address], [place], [place], [id number], 10:51:20 Ozempic 0.25 mg or 0.5 mg (2 mg/1.5 mL) subcutaneou s pen injector 2020 021 [email or web address] 2 [facility] [employer] [facility] #39618, [address], [place], [place], [id number], 10:53:38 baclofen 10 mg tablet 2020 021 STUART [facility] #28976, [address], [place], [place], [id number], 15:20:14 Patient TargetsNo targets recorded. Patient Instructions Encounter Date Encounter Id Patient Instructions Last Modified By Organization Details Last Modified Time 11/29/2020 [id number] gout: care instructions Not available 11/29/2020 15:19:53 high blood pressure: care instructions Not available 11/29/2020 15:19:52 learning about high blood pressure Not available 11/29/2020 15:19:52 check labs and cont to follow. pt with several complaints and likely related to PK def and or uncontrolled htn/dm. check labs and get an idea where to go from here Not available 11/29/2020 16:42:00 12/27/2020 [id number] type 2 diabetes: care instructions Not available 12/27/2020 10:49:35 Long d/w pt on labs and concerns i have. will address diabetes and HTN. start on ozempic and losartan. will try to get pt established with rheum to help manage meds and issues. will give abx for lesion on back. suspect insect bite and will cont to monitor Not available 12/27/2020 13:00:21 02/01/2021 [id number] pleurisy: care instructions Not available 02/01/2021 16:36:24 03/01/2021 [id number] abdominal pain: care instructions Not available 03/01/2021 [...] effects improve. Not available 03/01/2021 12:39:57 04/10/2021 [id number] high blood pressure: care instructions Not available 04/10/2021 10:52:47 learning about high blood pressure Not available 04/10/2021 10:52:47 high cholesterol : care instructions Not available 04/10/2021 10:52:47 will trade from ozempic to trulicity and see if better tolerated. cont to follow. 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 5 Not Available [facility] [address] [place], [address], 11/30/2020 07:25:33 11/30/1911/30/2020 testo stero ne, total , serum testosterone 333 NG/dL 300-89 0 Not Available [facility] [address] [place], [address], 11/30/2020 07:25:33 11/30/1911/30/2020 PSA, serum or plasm a PSA 1.49 NG/mL 0.00-4 .00 Comme nt for PSA Test perfo rmed using the Cooper elect cooper milum inesc ent immun oassa y (ECLI A). Not Available [facility] [address] [place], [address], 11/30/2020 07:25:34 11/30/19 21 11/30/2020 CBC w/ auto diff WBC 13.8 K/uL 4.0-11 .0 high Not Available [facility] [address] [place], [address], 11/30/2020 07:25:34 11/30/19 21 11/30/2020 CBC w/ auto diff RBC 3.21 M/uL 4.30-5 .70 low Not Available [facility] [address] [place], [address], 11/30/2020 07:25:34 11/30/19 21 11/30/2020 CBC w/ auto diff hemoglobin 10.8 g/dL 13.0-1 7.5 low Not Available [facility] [address] [place], [address], 11/30/2020 07:25:34 11/30/19 21 11/30/2020 CBC w/ auto diff hematocrit 34.0 % 39.0-5 5.0 low Not Available [facility] [address] [facility] [place], [address], 11/30/2020 07:25:34 11/30/19 21 11/30/2020 CBC w/ auto diff MCV 105.9 fL 78.0-1 02.0 high Not Available [facility] [address], [place], [address], 11/30/2020 07:25:34 11/30/19 21 11/30/2020 CBC w/ auto diff MCH 33.6 pg 25.0-3 5.0 Not Available [facility] [address], [place], [address], 11/30/2020 07:25:34 11/30/19 21 11/30/2020 CBC w/ auto diff MCHC 31.8 g/dL 30.0-3 8.0 Not Available [facility] [address] [place], [address], 11/30/2020 07:25:34 11/30/19 21 11/30/2020 CBC w/ auto diff RDW 12.8 % 11.5-1 6.0 Not Available [facility] [address] [place], [address], 11/30/2020 07:25:34 11/30/19 21 11/30/2020 CBC w/ auto diff platelet count 433 K/uL 150-45 0 Not Available [facility] [address], [place], [address], 11/30/2020 07:25:34 11/30/19 21 11/30/2020 CBC w/ auto diff abs neutrophils 8.2 K/uL 1.8-7. 0 high Not Available [facility] [address], [place], [address], 11/30/2020 07:25:34 11/30/19 21 11/30/2020 CBC w/ auto diff abs lymphocytes 2.9 K/uL 1.0-4. 0 Not Available [facility] [address], [place], [address], 11/30/2020 07:25:34 11/30/19 21 11/30/2020 CBC w/ auto diff abs monocytes 1.8 K/uL 0.1-1. 1 high Not Available [facility] [address] [place], [address], 11/30/2020 07:25:34 11/30/19 21 11/30/2020 CBC w/ auto diff abs eosinophils 0.3 K/uL 0.0-0. 5 Not Available [facility] [address], [place], [address], 11/30/2020 07:25:34 11/30/19 21 11/30/2020 CBC w/ auto diff abs basophils 0.1 K/uL 0.0-0. 3 Not Available [facility] [address] [place], [address], 11/30/2020 07:25:34 11/30/19 21 11/30/2020 CBC w/ auto diff abs bands 0.4 K/uL <0.1 high Not Available [facility] [address] [place], [address], 11/30/2020 07:25:34 11/30/19 21 11/30/2020 CBC w/ auto diff neutrophils 59.6 % Not Available [facility] [address] [place], [address], 11/30/2020 07:25:34 11/30/19 21 11/30/2020 CBC w/ auto diff lymphocytes 21.3 % Not Available [facility] [address] [place], [place], [address], 11/30/2020 07:25:34 11/30/19 21 11/30/2020 CBC w/ auto diff monocytes 13.4 % Not Available [facility] [address] [place], [address], 11/30/2020 07:25:34 11/30/19 21 11/30/2020 CBC w/ auto diff eosinophils 2.1 % Not Available [facility] [address] [place], [address], 11/30/2020 07:25:34 11/30/19 21 11/30/2020 CBC w/ auto diff basophils 1.0 % Not Available [facility] [address] [facility] [place], [address], 11/30/2020 07:25:34 11/30/19 21 11/30/2020 CBC w/ auto diff bands 2.6 % Not Available [facility] [address] [facility] [place], [address], 11/30/2020 07:25:34 11/30/19 21 11/30/2020 blood film for revmckayla w blood film for review See Note Comme nts on Lab Id:[id number] RBC Morph ology : Spher ocyte s +, Targe t cells +, Aniso cytos is ++, Macro cytes ++, Poiki locyt osis +++, Polyc hroma tic cells +++, Large Plate lets ++, Giant Plate lets ++, Plate let Clump s ++ Plate lets Liza l Not Available [facility] [address] [facility] [place], [address], 11/30/2020 07:25:35 11/30/19 21 12/01/2020 CMP, serum or plasm a sodium 136 mEq/L 135-14 6 Not Available [facility] [address] [facility] [place], [address], 12/01/2020 05:28:13 11/30/19 21 12/01/2020 CMP, serum or plasm a potassium 4.9 mEq/L 3.5-5. 4 Not Available [facility] [address] [facility] [place], [address], 12/01/2020 05:28:13 11/30/19 21 12/01/2020 CMP, serum or plasm a chloride 100 mEq/L 95-107 Not Available [facility] [address] [facility] [place], [address], 12/01/2020 05:28:13 11/30/19 21 12/01/2020 CMP, serum or plasm a carbon dioxide 19 mEq/L 19-31 Not Available [facility] [address] [place], [address], 12/01/2020 05:28:13 11/30/19 21 12/01/2020 CMP, serum or plasm a anion gap 17 mEq/L 7-23 Not Available [facility] [address] [place], [address], 12/01/2020 05:28:13 11/30/19 21 12/01/2020 CMP, serum or plasm a glucose non-fasting 432 mg/dL 70-139 high Not Available [facility] [address] [place], [place], [address], 12/01/2020 05:28:13 11/30/19 21 12/01/2020 CMP, serum or plasm a urea nitrogen (BUN) 21 mg/dL 6-20 high Not Available [facility] [address] [place], [place], [address], 12/01/2020 05:28:13 11/30/1912/01/2020 CMP, serum or plasm a creatinine 1.19 mg/dL 0.80-1 .40 Not Available [facility] [address], [place], [address], 12/01/2020 05:28:13 11/30/1912/01/2020 CMP, serum or plasm a eGFR 80 mL/mi n/1.7 3m'2 >59 Not Available [facility] [address] [place], [address], 12/01/2020 05:28:13 11/30/19 21 12/01/2020 CMP, serum or plasm a eGFR non- amer 69 mL/mi n/1.7 3m'2 >59 Not Available [facility] [address] [place], [address], 12/01/2020 05:28:13 11/30/19 21 12/01/2020 CMP, serum or plasm a BUN/creatini ne ratio 18 ratio Not Available [facility] [address] [place], [address], 12/01/2020 05:28:13 11/30/19 21 12/01/2020 CMP, serum or plasm a calcium total 10.5 mg/dL 8.5-10 .5 Not Available [facility] [address] [place], [address], 12/01/2020 05:28:13 11/30/19 21 12/01/2020 CMP, serum or plasm a protein total 7.2 g/dL 6.1-8. 3 Not Available [facility] [address] [place], [address], 12/01/2020 05:28:13 11/30/19 21 12/01/2020 CMP, serum or plasm a albumin 4.5 g/dL 3.5-5. 2 Not Available [facility] [address] [place], [address], 12/01/2020 05:28:13 11/30/19 21 12/01/2020 CMP, serum or plasm a globulin 2.7 g/dL 1.7-4. 3 Not Available [facility] [address] [place], [address], 12/01/2020 05:28:13 11/30/19 21 12/01/2020 CMP, serum or plasm a A/G ratio 1.7 ratio 0.9-2. 8 Not Available [facility] [address] [facility] [place], [address], 12/01/2020 05:28:13 11/30/19 21 12/01/2020 CMP, serum or plasm a bilirubin total 0.9 mg/dL 0.0-1. 2 Not Available [facility] [address] [facility] [place], [address], 12/01/2020 05:28:13 11/30/19 21 12/01/2020 CMP, serum or plasm a alkaline phosphatase 124 U/L 40-121 high Not Available [facility] [address] [facility] [place], [address], 12/01/2020 05:28:13 11/30/19 21 12/01/2020 CMP, serum or plasm a AST (SGOT) 19 U/L 9-50 Not Available [facility] [address] [facility] [place], [address], 12/01/2020 05:28:13 11/30/19 21 12/01/2020 CMP, serum or plasm a ALT (SGPT) 27 U/L 5-50 Not Available [facility] [address] [facility] [place], [address], 12/01/2020 05:28:13 03/01/20 21 03/02/2021 COMP METAB OLIC PANEL sodium 137 mEq/L 135-14 6 Not Available [facility] [address] [facility] [place], [address], 03/02/2021 07:13:23 03/01/20 21 03/02/2021 COMP METAB OLIC PANEL potassium 4.7 mEq/L 3.5-5. 4 Not Available [facility] [address] [place], [address], 03/02/2021 07:13:23 03/01/20 21 03/02/2021 COMP METAB OLIC PANEL chloride 107 mEq/L 95-107 Not Available [facility] [address] [place], [address], 03/02/2021 07:13:23 03/01/20 21 03/02/2021 COMP METAB OLIC PANEL carbon dioxide 17 mEq/L 19-31 low Not Available [facility] [address], [place], [address], 03/02/2021 07:13:23 03/01/20 21 03/02/2021 COMP METAB OLIC PANEL anion gap 13 mEq/L 7-23 Not Available [facility] [address] [place], [address], 03/02/2021 07:13:23 03/01/20 21 03/02/2021 COMP METAB OLIC PANEL glucose fasting 249 mg/dL 70-99 high Not Available [facility] [address], [place], [address], 03/02/2021 07:13:23 03/01/20 21 03/02/2021 COMP METAB OLIC PANEL urea nitrogen (BUN) 22 mg/dL 6-20 high Not Available [facility] [address], [place], [address], 03/02/2021 07:13:23 03/01/20 21 03/02/2021 COMP METAB OLIC PANEL creatinine 1.07 mg/dL 0.80-1 .40 Not Available [facility] [address], [place], [address], 03/02/2021 07:13:23 03/01/20 21 03/02/2021 COMP METAB OLIC PANEL eGFR 91 mL/mi n/1.7 3m'2 >59 Not Available [facility] [address] [place], [address], 03/02/2021 07:13:23 03/01/20 21 03/02/2021 COMP METAB OLIC PANEL eGFR non- amer 79 mL/mi n/1.7 3m'2 >59 Not Available [facility] [address], [place], [address], 03/02/2021 07:13:23 03/01/20 21 03/02/2021 COMP METAB OLIC PANEL BUN/creatini ne ratio 21 ratio Not Available [facility] [address], [place], [address], 03/02/2021 07:13:23 03/01/20 21 03/02/2021 COMP METAB OLIC PANEL calcium total 10.2 mg/dL 8.5-10 .5 Not Available [facility] [address], [place], [address], 03/02/2021 07:13:23 03/01/20 21 03/02/2021 COMP METAB OLIC PANEL protein total 7.0 g/dL 6.1-8. 3 Not Available [facility] [address], [place], [address], 03/02/2021 07:13:23 03/01/20 21 03/02/2021 COMP METAB OLIC PANEL albumin 4.3 g/dL 3.5-5. 2 Not Available [facility] [address], [place], [address], 03/02/2021 07:13:23 03/01/20 21 03/02/2021 COMP METAB OLIC PANEL globulin 2.7 g/dL 1.7-4. 3 Not Available [facility] [address] [place], [address], 03/02/2021 07:13:23 03/01/20 21 03/02/2021 COMP METAB OLIC PANEL A/G ratio 1.6 ratio 0.9-2. 8 Not Available [facility] [address] [place], [address], 03/02/2021 07:13:23 03/01/20 21 03/02/2021 COMP METAB OLIC PANEL bilirubin total 1.2 mg/dL 0.0-1. 2 Not Available [facility] [address] [place], [address], 03/02/2021 07:13:23 03/01/20 21 03/02/2021 COMP METAB OLIC PANEL alkaline phosphatase 99 U/L 40-121 Not Available [facility] [address] [place], [address], 03/02/2021 07:13:23 03/01/20 21 03/02/2021 COMP METAB OLIC PANEL AST (SGOT) 18 U/L 9-50 Not Available [facility] [address] [place], [address], 03/02/2021 07:13:23 03/01/20 21 03/02/2021 COMP METAB OLIC PANEL ALT (SGPT) 25 U/L 5-50 Not Available [facility] [address] [place], [address], 03/02/2021 07:13:23 03/01/20 21 03/02/2021 LIPID PROFI LE cholesterol 225 mg/dL <200 high Not Available [facility] [address] [place], [address], 03/02/2021 07:13:23 03/01/20 21 03/02/2021 LIPID PROFI LE triglyceride s 251 mg/dL 0-149 high Not Available [facility] [address] [place], [address], 03/02/2021 07:13:23 03/01/20 21 03/02/2021 LIPID PROFI LE HDL cholesterol 33 mg/dL >39 low Not Available [facility] [address] [place], [address], 03/02/2021 07:13:23 03/01/20 21 03/02/2021 LIPID PROFI LE LDL cholesterol 151 mg/dL <100 high Not Available [facility] [address] [place], [address], 03/02/2021 07:13:23 03/01/20 21 03/02/2021 LIPID PROFI LE non HDL cholesterol 192 mg/dL <130 high Not Available [facility] [address] [place], [address], 03/02/2021 07:13:23 03/01/20 21 03/02/2021 LIPID PROFI [...] Optim al) Coron martínez Risk Ratio : [place] for males < 4.97 NOTE: LDL calcu latio n updat ed to [facility] formu la on 1. Pleas e conta ct [facility] to obtai n addit ional infor delroy n on this new calcu latio n. Not Available [facility] [address] [facility] [place], [address], 03/02/2021 07:13:23 03/01/20 21 03/02/2021 HEMOG LOBIN A1C hemoglobin A1C 7.7 % 4.2-5. 6 high Not Available [facility] [address] [facility] [place], [address], 03/02/2021 07:13:24 03/01/20 21 03/02/2021 HEMOG LOBIN [...] labor atory consu ltati on. Not Available [facility] [address] [facility] [place], [address], 03/02/2021 07:13:24 03/01/20 21 03/02/2021 CBC WITH DIFFE RENTI AL WBC 15.9 K/uL 4.0-11 .0 high Not Available [facility] [address] [facility] [place], [address], 03/02/2021 07:13:24 03/01/20 21 03/02/2021 CBC WITH DIFFE RENTI AL RBC 2.95 M/uL 4.30-5 .70 low Not Available [facility] [address] [place], [address], 03/02/2021 07:13:24 03/01/20 21 03/02/2021 CBC WITH DIFFE RENTI AL hemoglobin 10.0 g/dL 13.0-1 7.5 low Not Available [facility] [address] [place], [address], 03/02/2021 07:13:24 03/01/20 21 03/02/2021 CBC WITH DIFFE RENTI AL hematocrit 31.6 % 39.0-5 5.0 low Not Available [facility] [address], [place], [address], 03/02/2021 07:13:24 03/01/20 21 03/02/2021 CBC WITH DIFFE RENTI AL MCV 107.1 fL 78.0-1 02.0 high Not Available [facility] [address], [place], [address], 03/02/2021 07:13:24 03/01/20 21 03/02/2021 CBC WITH DIFFE RENTI AL MCH 33.9 pg 25.0-3 5.0 Not Available [facility] [address] [place], [address], 03/02/2021 07:13:24 03/01/20 21 03/02/2021 CBC WITH DIFFE RENTI AL MCHC 31.6 g/dL 30.0-3 8.0 Not Available [facility] [address], [place], [address], 03/02/2021 07:13:24 03/01/20 21 03/02/2021 CBC WITH DIFFE RENTI AL RDW 13.9 % 11.5-1 6.0 Not Available [facility] [address] [place], [address], 03/02/2021 07:13:24 03/01/20 21 03/02/2021 CBC WITH DIFFE RENTI AL platelet count 462 K/uL 150-45 0 high Not Available [facility] [address] [place], [place], [address], 03/02/2021 07:13:24 03/01/20 21 03/02/2021 CBC WITH DIFFE RENTI AL abs neutrophils 9.8 K/uL 1.8-7. 0 high Not Available [facility] [address], [place], [address], 03/02/2021 07:13:24 03/01/20 21 03/02/2021 CBC WITH DIFFE RENTI AL abs lymphocytes 3.3 K/uL 1.0-4. 0 Not Available [facility] [address], [place], [address], 03/02/2021 07:13:24 03/01/20 21 03/02/2021 CBC WITH DIFFE RENTI AL abs monocytes 1.7 K/uL 0.1-1. 1 high Not Available [facility] [address] [facility], [address], 03/02/2021 07:13:24 03/01/20 21 03/02/2021 CBC WITH DIFFE RENTI AL abs eosinophils 0.7 K/uL 0.0-0. 5 high Not Available [facility] [address] [place], [address], 03/02/2021 07:13:24 03/01/20 21 03/02/2021 CBC WITH DIFFE RENTI AL abs basophils 0.1 K/uL 0.0-0. 3 Not Available [facility] [address] [place], [address], 03/02/2021 07:13:24 03/01/20 21 03/02/2021 CBC WITH DIFFE RENTI AL abs bands 0.3 K/uL <0.1 high Not Available [facility] [address] [place], [place], [address], 03/02/2021 07:13:24 03/01/20 21 03/02/2021 CBC WITH DIFFE RENTI AL neutrophils 61.7 % Not Available [facility] [address] [place], [address], 03/02/2021 07:13:24 03/01/20 21 03/02/2021 CBC WITH DIFFE RENTI AL lymphocytes 20.6 % Not Available [facility] [address] [place] [place], [place], [address], 03/02/2021 07:13:24 03/01/20 21 03/02/2021 CBC WITH DIFFE RENTI AL monocytes 10.7 % Not Available [facility] [address] [place], [address], 03/02/2021 07:13:24 03/01/20 21 03/02/2021 CBC WITH DIFFE RENTI AL eosinophils 4.5 % Not Available [facility] [address] [place], [place], [address], 03/02/2021 07:13:24 03/01/20 21 03/02/2021 CBC WITH DIFFE RENTI AL basophils 0.8 % Not Available [facility] [address] [place], [address], 03/02/2021 07:13:24 03/01/20 21 03/02/2021 CBC WITH DIFFE RENTI AL bands 1.7 % Not Available [facility] [address] [place], [address], 03/02/2021 07:13:24 03/01/20 21 03/02/2021 BLOOD FILM FOR FELICIANO Parra blood film for review See Note Brian nts on Lab Id:[id number] RBC Morph ology : Schis tocyt es +, Aniso cytos is ++, Macro cytes ++, Poiki locyt osis +++, Polyc hroma tic cells + Plate lets Incre ased Not Available [facility] [address] [place], [address], 03/02/2021 07:13:25 11/30/19 21 XR, chest , 2 view No observ ation record ed. Umair Milton MD [address], [place], [address], 11/29/2020 15:19:54 11/30/19 21 11/29/2020 XR, chest , 2 view No observ ation record ed. Umair Milton MD [address], [place], [address], 11/29/2020 15:56:34 Result Notes None recorded. 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 [place] beasley, [place] - Umair Milton 6 10:28:28 Chronic tophaceous gout 87990595 Alfred Milton MD [address] [place], [address], [place] - Umair Milton 5 10:56:37 Diabetes mellitus 37022060 Active [place] beas[place], KATHERIN Milton 6 10:28:28 Impotence Active [place], [address], [facility] Umair Milton 5 10:56:37 Tick bite 49640855 Active Umair Milton MD [place] [place], [place], [address], [facility] Umair Karine 5 12:45:10 Abdominal pain 76327005 [place], [address], [facility] Umair Karine 5 12:45:10 Essential hypertension 57055712 Active Con[facility] beas[facility] Karine 6 10:28:28 Hyperlipidemia 99615245 Active Esperanza beasley [facility] Karine 6 13:07:03 Problem Notes None recorded. Procedures Surgical History Date Name Laterality Status Provider Name and Address Organization Details Recorded Time 5 Colonoscopy completed Esperanza Rebolledo [facility] Umair Milton 01/18/2015 15:40:36 4 Splenectomy completed Tiffany Hendrix [facility] Umair Milton 11/21/2014 13:13:59 Imaging Results None [...] Not Available Not Available No t Available [place] 10 mg-325 mg tablet Take 1 tablet every 4 hours by oral route as needed. 10/14 completed Not Available Not Available Not Available [place] 7.5 mg-325 mg tablet Take 1 tablet [...] weight Body temperature Heart rate Oxygen saturation Systolic And Diastolic Provider Name and Address Organization Details Last Updated DateTime 1 180.34 cm 35.4 kg/m2 159796. 46 g 98 [degF] 90 /min 92 % 186/97 mm[Hg] Esperanza Rebolledo KATHERIN Toy [facility] 1 14:12:11 Date Recorded Body height Body mass index (BMI) Body weight Body temperature Oxygen saturation Heart rate Systolic And Diastolic Provider Name and Address Organization Details Last Updated DateTime 1 180.34 cm 34.6 kg/m2 744820. 91 g 97.2 [degF] 93 % 89 /min 189/100 mm[Hg] David Hutchisonson [facility] Umair W[facility]ibner 1 10:19:54 Date Recorded Body height Body temperature Body mass index (BMI) Body weight Heart rate Oxygen saturation Systolic And Diastolic Provider Name and Address Organization Details Last Updated DateTime 1 180.34 cm 98.3 [degF] 34.2 kg/m2 204629. 13 g 101 /min 95 % 133/86 mm[Hg] Tiffany Hendrix [facility] Umair [facility] 1 15:59:08 Date Recorded Body height Body mass index (BMI) Body weight Body temperature Heart rate Oxygen saturation Systolic And Diastolic Provider Name and Address Organization Details Last Updated DateTime 1 180.34 cm 34 kg/m2 023175. 54 g 97.9 [degF] 94 /min 93 % 177/94 mm[Hg] David Littlejohn [facility] Umair [facility] 1 10:52:53 Date Recorded Body height Body mass index (BMI) Body weight Body temperature Heart rate Oxygen saturation Systolic And Diastolic Provider Name and Address Organization Details Last Updated DateTime 1 180.34 cm 33.3 kg/m2 694760. 58 g 96.9 [degF] 91 /min 96 % 135/80 mm[Hg] Esperanza Amaury PANDEY Umair [facility] 1 09:52:19 Social History Question Answer Notes LastModified by Organizat ion Details LastModified Time Tobacco Smoking Status Never Smoker Not Available [facility] 06/06/2020 03:38:56 What Is Your Level Of Caffeine Consumption? Occasional [id number] Information not available 06/06/2020 How Much Tobacco Do You Chew? None [id number] Information not available 06/06/2020 What Type Of Diet Are You Following? REGULAR [id number] Information not available 06/06/2020 Education 12 [email or web address] Information no t available 11/21/2014 How Many Days In The Past Year Have You Had A Heavy Drinking Consumption (4+ Female, 5+ Male)? 0 Information not available 11/18/2016 Are There Any Guns Present In Your Home? No [id number] Information not available 06/06/2020 Hard Of Hearing Or Deaf In One Or Both Ears? No [email or web address] Information not available 11/21/2014 Legally Blind In One Or Both Eyes? No [email or web address] Information not available 11/21/2014 Live Alone Or With Others? With Others Information not available 05/09/2015 Risk Assessment Medium Informati on not available 09/03/2017 Marital Status [email or web address] Informatio n not available 11/21/2014 What Was The Date Of Your Most Recent Tobacco Screening? 06/26/2020 Information not available 06/26/2020 How Many Children Do You Have? 3 [id number] Information not available 06/06/2020 Seat Belts Used Routinely Yes [email or web address] Information not available 11/21/2014 Smoke Alarm In Home Yes [email or web address] Information not available 11/21/2014 Are You Passively Exposed To Smoke? No Information not available 05/09/2015 How Much Tobacco Do You Smoke? No [id number] Information not available 06/06/2020 General Stress Level Medium [email or web address] Information not available 11/21/2014 Do You Use Sunscreen Routinely? No [id number] Information not available 06/06/2020 Do You Have Difficulty Walking Or Climbing Stairs? No [id number] Information not available 06/06/2020 Sex: Unknown Functional Status Question Answer Note LastModified by Organizat ion Details LastModified Time What is your level of alcohol consumption? None [id number] Information not available 06/06/2020 Do you or have you ever used smokeless tobacco? Never used smokeless tobacco Information not available 06/26/2020 Are you currently employed? Yes [id number] Information not available 06/06/2020 Urinary incontinence assessment performed? Yes Information not available 11/18/2016 Do you have difficulty doing errands alone? No [id number] Information not available 06/06/2020 Are you able to care for yourself independently? Yes [id number] Information not available 06/06/2020 Do you have difficulty dressing, bathing, grooming, or toileting? No [id number] Information not available 06/06/2020 Do you or have you ever used e-cigarettes or vape? Never used electronic cigarettes Information not available 06/26/2020 What is your exercise level? None [id number] Information not available 06/06/2020 Mental Status Question Answer Note LastModified by Organization D etails LastModified Time Do you have difficulty concentrating, remembering or making decisions? No [id number] Information no t available 06/06/2020 Family History Nothing Reported. Medical History Condition Response Blood Diseases Y Blood Transfusion Y Immunizations Vaccine Type Date Status Note Provider Nam e and Address Organization Details Recorded Time Tdap 05/16/2014 completed Not Available [facility] 12/09/2022 15:33:33 Past Encounters Encounter ID Performer Location Encounter Start Date Encounter Closed Date Diagnosis/Indication Diagnosis SNOMED-CT Code Diagnosis ICD10 Code Diagnosis IMO Codes Diagnosis Note [id number] Umair Milton MD Main Office [address] [place] [address] 42704-101 1 11/21/2014 12:11:45 11/21/2014 14:05:23 Hematochezia [id number] cbc,cea. will set up for colonoscop y and follow. send lab results to [facility]. Chronic go uty arthritis 32615740 uric acid, cmp. pt may need to stop nsaid and allopurino l. sees rheum tomorrow. hesitant to give steroid injection while taking high dose steroid. 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 Essential hypertension 94731216 I10 [id number] Umair Milton MD Main Office [address] [place] [address] 99241-832 1 05/22/2016 11:19:53 05/22/2016 12:52:47 Hyperlipidemia 33357201 E78.5 Essential hypertension 91657175 I10 Uncontroll ed type 2 diabetes mellitus 794391889 E11.65 Fatigue 85491749 R53.83 Chronic go uty arthritis 81564522 M1A.9XX0 Deficiency of pyruvate kinase 131373240 E88.89 Adult heal th examination 585722183 Z00.00 Administra tion of pneumococcal vaccine 90617690 Z23 [id number] Umair Milton MD Main Office [address] [place] [address] 48919-945 1 11/18/2016 14:47:07 11/18/2016 16:59:32 Depression screening 864432848 Z13.89 Arthritis of hip 6158954 6 M13.852 left hip - severe deg changes, Chronic go uty arthritis 48408009 M1A.9XX0 [id number] Umair Milton MD Main Office [address] [place] [address] 32915-101 1 10/14/2018 11:14:43 10/14/2018 12:26:20 Essential hypertension 07596399 I10 Hyperlipidemia 93735106 E78.5 Diabetes mellitus 831309 09 E11.319 Chronic go uty arthritis 37969867 M1A.9XX0 Strain of back muscle 26 6381534 S39.012A Cerebrovas cular accident 882297454 I63.9 [id number] Umair Milton MD Main Office [address] [place] [address] 95069-217 1 12/01/2018 11:40:11 12/01/2018 12:45:33 Uncontrolled type 2 diabetes mellitus 264535160 E11.65 Hyperlipidemia 41124060 E78.5 Gout 92194127 M10.9 Anemia of chronic disease 967239491 D63.8 [id number] Umair Milton MD Main Office [address] [place] [address] 13738-300 1 12/08/2019 14:43:55 12/08/2019 15:50:39 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 [id number] Umair Milton MD Main Office [address] [place] [address] 72204-897 1 06/26/2020 14:05:51 06/26/2020 14:50:45 Hyperlipidemia 02691709 E78.5 Essential hypertension 66337712 I10 Chronic go uty arthritis 89312917 M1A.9XX0 Diabetes mellitus 523607 09 E11.319 Strain of back muscle 26 9526000 S39.012A Deficiency of pyruvate kinase 459509519 E88.89 [id number] Umair Milton MD Main Office [address] [place] [address] 96520-186 1 11/29/2020 14:07:30 11/29/2020 15:28:15 Chest wall pain 448676712 R07.89 Chest - unremarkab le Essential hypertension 90950453 I10 Gout 09640185 M10.9 Hypogonadism 40531456 E2 9.1 Deficiency of pyruvate kinase 952751433 E88.89 [id number] Umair Milton MD Main Office [address] [place] [address] 17877-858 1 12/27/2020 10:06:14 12/27/2020 17:46:28 Uncontrolled type 2 diabetes mellitus 281530504 E11.65 Hypertensive disorder 38 784271 I10 Chronic go uty arthritis 12042610 M1A.9XX0 Insect bite - wound 4374 43069 T14.8XXA Deficiency of pyruvate kinase 382217469 E88.89 [id number] Umair Milton MD Main Office [address] [place] [address] 82724-693 1 02/01/2021 15:36:36 02/06/2021 12:17:09 Pleurisy 178512323 R09.1 [id number] Umair Milton MD Main Office [address] [place] [address] 1 03/01/2021 10:40:11 03/01/2021 11:24:02 Deficiency of pyruvate kinase 494071133 E88.89 Abdominal pain 81512001 R10.9 Impotence 869565800 N52. 9 Essential hypertension 62441761 I10 Uncontroll ed type 2 diabetes mellitus 277707042 E11.65 [id number] Umair Milton MD Main Office [address] [place] [address] [place] [address] 1 04/10/2021 09:43:24 04/10/2021 10:58:38 Hyperlipidemia 78586224 E78.5 Essential hypertension 90632604 I10 Chronic go uty arthritis 83083494 M1A.9XX0 Diabetes mellitus 308215 09 E11.319 Health Concerns Section Related Observation LastModified by Organization Detai ls LastModified Time None Recorded Concern Status LastModified by Organization Details LastModified Time None Recorded Advance Directives Directive None Recorded Payers Insurance Date Sequence Insurance Name Policy Number Policy Colón Covered Member ID Colón Member ID Guarantor Name 06/05/2015 1 [facility] [id number] Ernie Plasencia [id number] Ernie Plasencia 10/14/2018 1 [employer] - OPEN ACCESS MANAGED CHOICE (POS) [id number] 02 Ruth Ann Plasencia [id number] Ernie Plasencia 07/10/2021 1 [facility] [id number] Ruth Ann Plasencia [id number] Ernie Plasencia Notes Date Note Type Note [...] For severity, patient reportspain level without meds 01/11. For duration, patient reportspresent <1 month. For timing, patient reportsintermittent. For location, (right sided rib pain).ROS as noted in the HPI Patient states that he has right sided rib pain. Patient has been seeing a chiropractor, Romeo Jerezon, and he was told that his ribs are popped out. Pt also says he is unable to get an erection and or care about sex. asking to have his hormones checked Umair Milton MD [address] [place], [address], [place] - Umair Milton 11/29/2020 16:42:05 1 text/html Hypertension F/UReported by PatientHPIFor associated symptoms, patient reportsno dizziness,no lightheadedness,no chest pain,no shortness of breath,no palpitations,no edema, andno calf pain with exertion. For lifestyle, patient reportsregular exerciseandlimiting/avoi ding salt. For medications, patient reportstaking medications as directedandno side effects from medication. Musculoskeletal PainReported by PatientHPIFor quality, patient reportsdull. For severity, patient reportspain level without meds 01/11. For duration, patient reportspresent <1 month. For [...] Patient has been seeing a chiropractor, Romeo Jerezon, and he was told that his ribs are popped out. Pt also says he is unable to get an erection and or care about sex. asking to have his hormones checked Umair Milton MD [address] [place], [address], KATHERIN Milton 12/27/2020 13:01:01 1 text/html Musculoskeletal [...] injury noted. having tingling in left hand. Umari Milton MD [address] [place], [address], KATHERIN Milton 02/01/2021 17:44:24 1 text/html Musculoskeletal [...] He says that he had heat intolerance. Umair Milton MD [address] [place], [address], KATHERIN Milton 03/01/2021 12:40:01 1 text/html Hypertension [...] up his vision. Umair Milton MD [address] [place], [address], KATHERIN Milton 04/10/2021 13:37:37
--- OUTSIDE RECORDS SUMMARY | 2025-06-25 06:09 | XMS_ITS | Clinical Summary ---
Author Organization [facility] Address [address] [place] [address] Phone Care Team Providers Care Construction Equipment Technician Name Role Phone Umair Milton MD Primary Care Provider Allergies No known active allergies Medications allopurinol (ZYLOPRIM) 300 mg tablet Take 300 mg by mouth 2 times daily . Active folic acid (FOLVITE) 1 mg tablet Take 1 mg by mouth daily tailing hand. 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 CAR DRIVER Inhaled Oxygen Concentration - - Weight 111.1 [...] (#1) 2025 Medical Devices Implanted Type Area Subway Guard Device Identifier Shelf Expiration Date Model / Serial / Lot Cup Pinn Sctr Series 56mm 1217-22-056 - [id number] Implanted:Qty: 1 on 02/07/2017 by Jeremy Coyne MD at [facility] Hip Left: Hip [employer] 12/01/2026 6 / / [id number] Hole Eliminator Roslyn 1246-03-000 - [id number] Implanted:Qty: 1 on 02/07/2017 by Jeremy Coyne MD at [facility] Hip Left: Hip [employer] 09/03/2026 0 / / [id number] Stem Fem Actis Hi Colr Sz5 1010-12-050 - [id number] Implanted:Qty: 1 on 02/07/2017 by Jeremy Coyne MD at [facility] Hip Left: Hip [employer] 11/01/2025 1010-07-08 0 / / [id number] Head Fem Art/Carlos Cer Sz36 1365-36-320 - [id number] Implanted:Qty: 1 on 02/07/2017 by Jeremy Coyne MD at [facility] Hip Left: Hip [employer] 11/01/2021 1365-36-3 2 0 / / [id number] Liner Pinn Altrx Poly 1221-36-056 - [id number] Implanted:Qty: 1 on 02/07/2017 by Jeremy Coyne MD at [facility] Hip Left: Hip [employer] 11/01/2021 6 / / [id number] Procedures Procedure Name Priority Date/Time Associated Diagnosis Comments HEMOGLOBIN A1C Routine 01/10/2017 11:10 AM CDT from Last 3 Months or Most Recently Relevant to Health Maintenance Results * (ABNORMAL) HEMOGLOBIN A1C (01/10/2017 11:10 AM CDT) HEMOGLOBIN A1C 6.3(H) 4.0 - 6.0 % 01/10/2017 11:53 AM CDT [facility] EST. AVG GLUCOSE, A1C 134 mg/dL 01/10/2017 11:53 AM CDT [facility] Blood Collection / Unknown 01/10/2017 11:10 AM CDT 01/10/2017 11:37 AM CDT us Vipin Reddy MD CHEMISTRY ORDERABLES Final Resu lt [facility] CLIA #[id number] [address] [place], [place] [address] from Last 3 Months or Most Recently Relevant to Health Maintenance Insurance [employer] LOCAL Advance Directives For more information, please contact: [phone] * Full Code (Latest Code Status on [...] 11:47 AM 02/08/2017 3:55 PM Care Teams Construction Equipment Technician Relationship Specialty Start Date End Date Umair Milton MD [address] [place] [address] K[place] CRESPO [id number] PCP - General Religion Department Chair 02/07/17
--- OUTSIDE RECORDS SUMMARY | 2025-06-25 06:09 | XMS_ITS | Patient Health Record ---
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 Stress is when someone feels tense, nervous, anxious, or can't sleep at night because their mind is troubled Not at all In the past year have you sp ent more than 2 nights in a row in a assisted, [place] health [place] facility, intermediate center, or juvenile correctional facility? No Are [...] US: no Cherry Chu 10/09/2022 03:39:57 PM COMFORT ADVISOR > , No Alcohol: no Amber Scott any 10/09/2022 03:39:40 PM COMFORT ADVISOR > , never Smoking: no Sonia Amber any 10/09/2022 03:39:37 PM COMFORT ADVISOR > , NO Sexually active: Freida Scotty 10/09/2022 03:40:00 PM COMFORT ADVISOR > Recreational drug use: no Sonia Cherry 10/09/2022 03:39:38 PM COMFORT ADVISOR > , Denies Exercise: no Amber Scott any 10/09/2022 03:39:56 PM COMFORT ADVISOR > , No Caffeine: yes Sonia Amber any 10/09/2022 03:39:54 PM COMFORT ADVISOR > , Yes Advance Directive no Sonia, Linda luna 10/09/2022 03:40:06 PM COMFORT ADVISOR > , None Herbal & OTC medications no Dennis stringer Cherry 10/09/2022 03:40:02 PM COMFORT ADVISOR > , none Depression Screening Completed: no Sonia Cherry 10/09/2022 03:56:02 PM COMFORT ADVISOR > , PHQ2 Pre-Visit Planning Completed: yes Sudeep olivia Cherry 10/09/2022 03:39:34 PM COMFORT ADVISOR > , Same Day Appointment Diabetic testing: no Linda Scott 10/09/2022 03:40:08 PM COMFORT ADVISOR > , Not diabetic Plan Of Treatment No Information Insurance Providers Payer Name Payer Address Payer Phone Subscriber Number Group Number Insured Name Patient Relationship to Insured Coverage Start Date Coverage End Date [employer] MEDICARE ADVANTAGE CHOICE [address] [address] [place] [address] [id number] TERRY GARCIA Self - patient is the insured Medications Administered Medication Instructions Date of Administration Dosage Notes cefTRIAXone Sodium 10/09/2022 1 g pt tolerated shot well [facility] [id number] Medical (General) History Medical History History ICD Code stroke Hospitalization History Reason Date(Month/Year) STROKE 111 YEARS AGO
--- NOTE | 2025-06-25 06:13 | ECG_ITS ---
[facility] Deltasight Test Date: 2025-06-25 Pat Name: Ernie Plasencia Department: Room: Gender: Male Wellness Instructor: : 1965 Requested By: Rosie Gutierrez Order Number: [id number] Melina MD: Sera Benjamin M.D. Measurements Intervals [place] Rate: 70 P: 24 IL: 172 QRS: 32 QRSD: 101 T: 57 QT: 357 QTc: 387 Interpretive Statements SINUS RHYTHM POSSIBLE LEFT VENTRICULAR HYPERTROPHY [VOLTAGE CRITERIA PLUS LAE OR QRS WIDENING] NONSPECIFIC T-WAVE ABNORMALITY Compared to ECG 06/02/2025 23:54:28 No significant changes Electronically Signed On 06-25-2025 13:48:02 [employer] by Sera Benjamin M.D. [email or web address]
--- NOTE | 2025-06-25 06:17 | XRR_ITS ---
PROCEDURE INFORMATION: Exam: XR Chest Exam date and time: 06/25/2025 6:27 AM Age: 59 years old Clinical indication: Other: Hypertensive; Additional info: HTN TECHNIQUE: Imaging protocol: Radiologic exam of the chest. Views: 1 view. COMPARISON: CR XR chest 1V portable [id number] 06/02/2025 7:22 PM FINDINGS: Lungs: Unremarkable. No consolidation. Pleural spaces: Unremarkable. No pleural effusion. No pneumothorax. Heart/Mediastinum: Unremarkable. No cardiomegaly. Bones/joints: Unremarkable. XR/XR chest 1V portable [id number] IMPRESSION: No acute findings.
[2025-06-25 06:26] VITALS: BP 196/93; PULSE 72; RESP 18; TEMP 36.7; O2SAT 96; BMI 32.1
[2025-06-25 06:30] VITALS: BP 196/93; PULSE 72; RESP 18; TEMP 36.7; O2SAT 96
--- NOTE | 2025-06-25 06:34 | W.ED.RECABL ---
HPI - Recheck/Abnormal Lab/Rx General: Chief Complaint: Recheck/Abnormal Lab/Rx Stated Complaint: high BP 911 told come in Time Seen by Provider: 06/25/25 06:17 History of Present Illness: 59-year-old man with a history of hypertension, atrial fibrillation, chronic anticoagulation on Eliquis, obstructive sleep apnea, stroke, PKD, who presents to the emergency room with hypertension. He says for the last 24 hours he has had pressures as high as 230 systolic. He has had a headache. He says he can feel his heart beating but has had no chest pain. No altered mental status. No focal motor deficits. No abdominal pain. No nausea or vomiting. Related Data Home Medications ?Medication ?Instructions ?Recorded ?Confirmed B-complex with vitamin C 1 cap PO DAILY 06/15/25 06/15/25 benfotiamine 150 mg capsule 150 mg PO BID 06/15/25 06/15/25 Previous Rx's ?Medication ?Instructions ?Recorded metoprolol succinate 50 mg 50 mg PO DAILY #90 tabs 06/03/25 tablet,extended release 24 hr apixaban 5 mg tablet (Eliquis) 5 mg PO BID #180 tabs 06/14/25 clonidine HCl 0.1 mg tablet 0.1 mg PO DAILY PRN hypertension 06/25/25 #20 tabs Allergies Allergy/AdvReac Type Severity Reaction Status Date / Time Calcium Channel Blocking Allergy Unknown Verified 06/15/25 13:11 Agent Dilt Review of Systems Narrative: Constitutional symptoms: Negative except as documented in HPI. Skin symptoms: Negative except as documented in HPI. Eye symptoms: Negative except as documented in HPI. ENMT symptoms: Negative except as documented in HPI. Respiratory symptoms: Negative except as documented in HPI. Cardiovascular symptoms: Negative except as documented in HPI. Gastrointestinal symptoms: Negative except as documented in HPI. Genitourinary symptoms: Negative except as documented in HPI. Musculoskeletal symptoms: Negative except as documented in HPI. Neurologic symptoms: Negative except as documented in HPI. Psychiatric symptoms: Negative except as documented in HPI. Endocrine symptoms: Negative except as documented in HPI. [facility] ED PFSH: Medical History (Updated 06/25/25 @ 08:01 by Rosie Angulo MD) NSTEMI (non-ST elevated myocardial infarction) Mass of right kidney Noncompliance Acute hypercapnic respiratory failure Obstructive sleep apnea Attention deficit disorder Type 2 diabetes mellitus Sepsis Erectile disorder due to medical condition in male Cardiac left ventricular ejection fraction greater than or equal to 40 percent Actinic keratosis Seborrheic keratosis Pyruvate kinase (PK) deficiency anemia On continuous oral anticoagulation Recurrent cerebrovascular accidents (CVAs) Paroxysmal atrial fibrillation with rapid ventricular response Atrial flutter Acute kidney injury Macrocytic anemia Leukocytosis Febrile Leg pain, left Tick bite Basilar artery stenosis Vertebrobasilar ischemia Hyperlipidemia Gout Hx of ischemic vertebrobasilar artery brainstem stroke (2012) Hypertension Surgical History Post-splenectomy History of colonoscopy (2014) History of bone marrow biopsy (01/07/14) Bone marrow aspiration and biopsy at [facility] H/O knee surgery Left knee cap repair - [facility] Taylor - Dr. 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 Daughter Anesthesia complication Mother Cancer Lung Other Diabetes Hyperlipidemia Hypertension Stroke Denies family history of CAD (coronary artery disease) Clotting disorder Dementia Psychiatric illness Chronic kidney disease (CKD) Suicide Bleeding disorder Lung disease Social History Smoking and tobacco/nicotine status: never used tobacco/nicotine Alcohol intake: never Substance/Drug Use: never Additional social history: Patient wants full code as discussed today with Boogie Griffith MD on 04/30/2025. His next of kin is daughter Daija. 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 He also helps his own kids running errands etc. they are ages 37, 35 and 27. He states he is not as active after his stroke service: Yes Current occupation: [employer] Physical Exam Narrative: EXAM NARRATIVE: General: Alert, no acute distress. Skin: Warm, dry. Head: Normocephalic, atraumatic. Neck: Supple, trachea midline. Eye: Extraocular movements are intact. Ears, nose, mouth and throat: mucosa moist. Cardiovascular: Regular, Normal peripheral perfusion. Respiratory: Lungs are clear to auscultation, respirations are non-labored, breath sounds are equal, Symmetrical chest wall expansion. Gastrointestinal: Soft, Nontender, Non distended Musculoskeletal: Normal ROM, no deformity. Neurological: Alert and oriented, No focal neurological deficit observed. Psychiatric: Cooperative, appropriate mood & affect. Course Vital Signs: Vital signs: Vital Signs Temperature 98.1 F 06/25/25 06:30 Pulse Rate 68 06/25/25 08:16 Respiratory Rate 18 06/25/25 06:30 Blood Pressure 128/69 06/25/25 08:16 Pulse Oximetry 95 06/25/25 08:16 MDM - Recheck/Abnormal Lab/Rx Medical Decision Making Medical decision making Patient's reason for coming to the emergency room: Hypertension Social determinants: Self-employed. I reviewed the patient's medical record. 59-year-old man with a history of hypertension, atrial fibrillation, chronic anticoagulation on Eliquis, obstructive sleep apnea, stroke, PKD. Most recent visit to the emergency room was with oncology for his PKD. He also follows with Dr. Frazier and neurology and had an appointment earlier this month there. Follow-up with cardiology recently as well. I reviewed the patient's current home meds Patient is on Eliquis. Alternate historians: None Differential diagnosis including but not limited to and based on the above HPI, review of systems and physical exam: Patient presents with hypertension: Essential hypertension. Stroke. acute coronary syndrome. kidney failure. congestive heart failure. anxiety. Orders placed to evaluate differential diagnosis based on the above differential, HPI and physical exam EKG: Time 6:13 AM. Rate 70. Normal sinus rhythm, nonspecific ST changes, no ectopy, normal AK & QRS intervals, This was reviewed and interpreted by myself the ER physician at 6:17 AM Chest x-ray: No acute process. No infiltrate. No pneumothorax. This was reviewed and interpreted by myself the emergency room physician. I also reviewed the radiology report. Lab Review: Laboratory results were reviewed and interpreted by myself the emergency room physician. Stable leukocytosis. Stable anemia. Stable chronic renal insufficiency. Troponins are at his baseline and unchanged serially. Assessment of risk: Level of risk: Moderate risk patient. Recent stroke. Multiple comorbidities. Hospitalization considerations: Pressure came down promptly with clonidine. Reexamination: Patient remained stable. No increased work of breathing. No altered mental status. No focal motor deficits. Assessment and plan: Accelerated hypertension ?Blood pressure improved greatly with clonidine. Asymptomatic. - Discharged home - Discussed plan with patient. Answered any questions. - Evaluation and treatment of this problem were appropriate in the emergency setting. Lab Data 06/25/25 06:33 06/25/25 06:33 Radiology Impressions Chest X-Ray 06/25/25 06:17 IMPRESSION: No acute findings. Laboratory Results WBC 15.40 10^3/uL (3.29-11.43) H 06/25/25 06:33 RBC 2.44 10^6/uL (3.85-5.65) L 06/25/25 06:33 Hgb 8.10 g/dL (11.27-16.99) L 06/25/25 06:33 Hct 25.7 % (37-53) L 06/25/25 06:33 MCV 105.3 fl (82-101) H 06/25/25 06:33 MCH 33.2 pg (27-33) H 06/25/25 06:33 MCHC 31.5 g/dL (30-55) 06/25/25 06:33 RDW 15.6 % (12.1-15.1) H 06/25/25 06:33 Plt Count 471 10^3/cmm (157-399) H 06/25/25 06:33 MPV 11.2 fL (7.4-10.4) H 06/25/25 06:33 Neut % (Auto) 67.3 % 06/25/25 06:33 Lymph % (Auto) 18.8 % 06/25/25 06:33 [place] % (Auto) 10.9 % 06/25/25 06:33 Eos % (Auto) 2.1 % 06/25/25 06:33 Baso % (Auto) 0.6 % 06/25/25 06:33 Neut # (Auto) 10.35 10^3/uL (1.8-7.7) H 06/25/25 06:33 Lymph # (Auto) 2.9 10^3/uL (0.8-4.8) 06/25/25 06:33 [place] # (Auto) 1.7 10^3/uL (0.2-0.9) H 06/25/25 06:33 Eos # (Auto) 0.3 10^3/uL (0.0-0.8) 06/25/25 06:33 Baso # (Auto) 0.1 10^3/uL (0.0-0.1) 06/25/25 06:33 Nucleated RBC % (auto) 0 % 06/25/25 06:33 Nucleated RBCs # 0.0 /100WBC 06/25/25 06:33 PT 14.80 SECONDS (12.1-14.9) 06/25/25 06:33 INR 1.09 (0.8-1.2) 06/25/25 06:33 APTT 30.5 SECONDS (23.9-36.7) 06/25/25 06:33 Sodium 137 mmol/L (136-145) 06/25/25 06:33 Potassium 5.4 mmol/L (3.5-5.1) H 06/25/25 06:33 Chloride 106 mmol/L (98-107) 06/25/25 06:33 Carbon Dioxide 22 mmol/L (22-29) 06/25/25 06:33 Anion Gap 14.4 (5-19) 06/25/25 06:33 BUN 47 mg/dL (6-20) H 06/25/25 06:33 Creatinine 1.8 mg/dL (0.7-1.2) H 06/25/25 06:33 GFR Calculation 39.1 mL/min (90-130) L 06/25/25 06:33 Glucose 142 mg/dL (65-115) H 06/25/25 06:33 Calculated Osmolality 299 mOsm/kg (285-295) H 06/25/25 06:33 Calcium 10.1 mg/dL (8.5-10.5) 06/25/25 06:33 Total Bilirubin 1.5 mg/dL (0.15-1.2) H 06/25/25 06:33 AST 18 U/L (0-40) 06/25/25 06:33 ALT 23 U/L (0-41) 06/25/25 06:33 Alkaline Phosphatase 86 U/L (40-130) 06/25/25 06:33 Troponin T Baseline 47 ng/L (0-15) H 06/25/25 06:33 Troponin T 120 Minute 40.15 ng/L (0-15) H 06/25/25 07:30 Delta Troponin T -6.85 ABS# (0-10) L 06/25/25 07:30 NT-Pro-B Natriuret Pep 2629 pg/mL (0-125) H 06/25/25 06:33 Total Protein 7.5 g/dL (6.6-8.7) 06/25/25 06:33 Albumin 4.8 g/dL (3.5-5.2) 06/25/25 06:33 Globulin 2.7 g/dL (1.3-4.6) 06/25/25 06:33 All radiology interpretation(s) finalized by discharge Discharge Plan Discharge Patient Disposition: Home Clinical Impression: Accelerated hypertension Condition: Stable Prescriptions: New clonidine HCl 0.1 mg tablet 0.1 mg PO DAILY PRN (Reason: hypertension) Qty: 20 0RF Rx Instructions: For Systolic >185 diastolic >100. If you are needing this more than once a day you need to follow with your primary care provider No Action metoprolol succinate 50 mg tablet extended release 24 hr 50 mg PO DAILY Qty: 90 3RF Eliquis 5 mg tablet 5 mg PO BID Qty: 180 0RF B-complex with vitamin C Capsule 1 cap PO DAILY benfotiamine 150 mg capsule 150 mg PO BID Discharge Orders: Discharge ED (Routine); Ordered 06/25/25 Ordered By: Rosie Angulo Referrals: Yu Lee APN [Primary Care Provider, [facility]] Discharge Diet: Usual diet Discharge Activity: Increase activity as tolerated Patient Instructions: Opioid Safety, Pain Management, Patient Portal & Alexys Instructions Print Language: Djiboutian Coding Level of Care Code ED Coach Wirer for Shira Mckinley
[2025-06-25 06:40] LABS: Hematocrit 25.7 % (37-53); Hemoglobin 8.10 g/dL (11.27-16.99); Mean Corpuscular HGB Conc 31.5 g/dL (30-55); Mean Corpuscular Hemoglobin 33.2 pg (27-33); Mean Corpuscular Volume 105.3 fl (82-101); Nucleated Red Blood Cells % 0 %; Platelet Count 471 10^3/cmm (157-399); Red Blood Count 2.44 10^6/uL (3.85-5.65); White Blood Count 15.40 10^3/uL (3.29-11.43)
[2025-06-25 06:44] VITALS: BP 196/93
[2025-06-25 06:51] LABS: INR 1.09 (0.8-1.2); Partial Thromboplastin Time 30.5 SECONDS (23.9-36.7); Prothrombin Time 14.80 SECONDS (12.1-14.9)
[2025-06-25 07:00] LABS: Troponin(5th) Baseline 47 ng/L (0-15)
[2025-06-25 07:11] LABS: Alanine Aminotransferase 23 U/L (0-41); Albumin Level 4.8 g/dL (3.5-5.2); Alkaline Phosphatase 86 U/L (40-130); Aspartate Amino Transferase 18 U/L (0-40); Blood Urea Nitrogen 47 mg/dL (6-20); Calcium 10.1 mg/dL (8.5-10.5); Carbon Dioxide 22 mmol/L (22-29); Chloride 106 mmol/L (98-107); Globulin 2.7 g/dL (1.3-4.6); Glucose 142 mg/dL (65-115); NT Pro B Type Natriuretic Pept 2629 pg/mL (0-125); Osmolality Calculated 299 mOsm/kg (285-295); Sodium 137 mmol/L (136-145); Total Protein 7.5 g/dL (6.6-8.7)
[2025-06-25 07:13] LABS: Anion Gap 14.4 (5-19); Potassium 5.4 mmol/L (3.5-5.1)
[2025-06-25 07:52] LABS: Troponin 5 2HR 40.15 ng/L (0-15)
[2025-06-25 07:56] LABS: Troponin 5 2HR Delta -6.85 ABS# (0-10)
[2025-06-25 08:16] VITALS: BP 128/69; PULSE 68; O2SAT 95
== END 2025-06-25 08:17 | disposition home or self-care (01) ==
PROVIDERS: Emergency Provider Emergency Medicine; PCP Nurse Practitioner Family
DX: I10 Essential (primary) hypertension (principal); I48.91 Unspecified atrial fibrillation; D55.21 Anemia due to pyruvate kinase deficiency; E11.9 Type 2 diabetes mellitus without complications; I25.2 Old myocardial infarction; Z79.01 Long term (current) use of anticoagulants; Z86.73 Personal history of transient ischemic attack (TIA), and cerebral infarction without residual deficits
CPT/HCPCS: 36415; 71045; 80053; 83880; 84484; 85025; 85610; 85730; 93005; 99285; J9999

== ENCOUNTER 2025-06-27 13:34 | Emergency (ER) | payer OTHER, SELFPAY ==
--- OUTSIDE RECORDS SUMMARY | 2024-09-28 09:20 | XMS_ITS ---
Author Organization [facility] Address [address] [place] [address] Care Team Providers Care Cereal Miller Name Role Phone Yu Lee Primary Care Provider YU LEE Unavailable Unavailable REASON FOR VISIT pain, stiffness from injury, needs referral Encounters Encounter Location Date Provider Diagnosis [facility] Office [address] [address] 09/28/2024 Yu Lee Plan Of Treatment No Information Progress Notes * GARCIAErnieDOB: 7 (59 yo M)Acc No.[id number]:09/28/2024 Progress Notes Patient: Ernie Lechuga Provider: Brenda Lee APRN :1965 A ge:59 Y S ex:Male Date:09/28/2024 Address:[id number] Subjective: * Chief Complaints: * P ain, stiffness from injury, needs referral Billing Information: * Procedure Codes: Care Plan Details* * Electronic signature of Gabrielle Lee APN on 06/27/2025 at 02:02 PM DOCK BOSS Sign off status: Pending * Provider: Brenda Lee APRN Date: 09/28/2024 Generated for Sasha donaldson/Elvin/Hadleyitting on: 08/27/2024 02:02 PM DOCK BOSS
--- OUTSIDE RECORDS SUMMARY | 2024-10-22 11:00 | XMS_ITS ---
Author Organization [facility], [employer] Address [address] [place] [address] Care Team Providers Care Auto Body Painter Name Role Phone Yu Lee Primary Care Provider ZE Gamez Unavailable [phone] KAT MUELLER Unavailable [phone] REASON FOR VISIT [address] - OB per Mary Encounters Encounter Location Date Provider Diagnosis [facility] [employer] [facility] [address] [place] [address] 10/22/2024 KAT MUELLER Plan Of Treatment No Information Progress Notes * Ernie GARCIA EDOB: [birth year] (59 yo M)Acc No.[id number]:10/22/2024 Progress Notes Patient: Ernie ANAYA Provider: Rebeca Mueller MD :1965 A ge:59 Y S ex:Male Date:10/22/2024 Address:[address] [id number] Pcp:Yu Lee Subjective: * Chief Complaints: * 1 . [address] - OB per Mary. * Medical History: Objective: * Vitals: Assessment: Plan: * Treatment: * Billing Information: * Visit Code: * Procedure Codes: * Electronic signature of EMMANUEL MUELLER MD on 06/27/2025 at 02:02 PM APPLICATION SYSTEMS ARCHITECT Sign off status: Pending * Provider: Rebeca Mueller MD Date: 0 10/22/2024 Generated for Sasha donaldson/Elvin/Hadleyitting on: 1 08/27/2024 02:02 PM APPLICATION SYSTEMS ARCHITECT
--- OUTSIDE RECORDS SUMMARY | 2024-11-02 05:00 | XMS_ITS ---
Author Organization [facility] Address [address] [place] [address] Care Team Providers Care Pig Machine Crane Operator Name Role Phone Yu Lee Primary Care Provider YU LEE Unavailable Unavailable REASON FOR VISIT HFU OZH discharge 10/25 IND Left foot Encounters Encounter Location Date Provider Diagnosis [facility] Office [address] [place] [phone] 11/02/2024 Yu Lee Plan Of Treatment No Information Progress Notes * GARCIAErnieDOB: 7 (59 yo M)Acc No.[id number]:11/02/2024 Patient: Ernie Lechuga Provider: Brenda Lee APRN :1965 A ge:59 Y S ex:Male Date:11/02/2024 Address[place] [id number] Subjective: * Chief Complaints: * H FU OZH discharge 10/25 IND Left foot Billing Information: * Procedure Codes: * Electronic signature of Gabrielle Lee APN on 06/27/2025 at 02:02 PM STOCKHOLDER Sign off status: Pending * Provider: Brenda Lee APRN Date: 0 11/02/2024 Generated for Sasha donaldson/Elvin/Hadleyitting on: 08/27/2024 02:02 PM STOCKHOLDER
[2025-06-27] VITALS (7 sets, daily range): BP systolic 160–191; BP diastolic 70–90; PULSE 62–70; RESP 17; TEMP 36.6; O2SAT 95–98; BMI 32.1
--- NOTE | 2025-06-27 13:51 | ECG_ITS ---
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 Measurements Intervals [place] Rate: 67 P: 46 TN: 175 QRS: 65 QRSD: 102 T: 67 QT: 366 QTc: 388 Interpretive Statements SINUS RHYTHM Compared to ECG 06/25/2025 06:13:28 T-wave abnormality no longer present Electronically Signed On 06-27-2025 17:49:08 ABSTRACTOR by Sera Benjamin M.D. [email or web address]
--- OUTSIDE RECORDS SUMMARY | 2025-06-27 14:02 | XMS_ITS | Patient Health Record ---
Author Organization [facility] Address [address] [place] [address] Care Team Providers Care Drum Straightener Name Role Phone Yu Lee Primary Care Provider UnavailZE Earl Unavailable [phone] KAT MUELLER Unavailable [phone] PANDA HUIZAR Unavailable [phone] Allergies Allergen (clinical drug ingredient) Drug/Non Drug [...] Glucose 1+ Bilirubin - Ketones - Specific [place] 1.015 Occult Blood - pH 6.0 Urine [...] Notes Problem Disorder of kidney and/or ureter (236521994) Right renal mass (N28.89) Active confirmed Vital Signs Height-cm 180.34 cm 10/08/2024 Weight-kg 108.86 kg 10/08/2024 Height 71 in 10/08/2024 Weight 240 lbs 10/08/2024 BMI 33.47 kg/m2 10/08/2024 Encounters Encounter Location Date Provider Diagnosis [facility] [address] [facility] [place] [address] 10/08/2024 PANDA HUIZAR Right renal mass N28.89 [facility] [address] [place] [address] 09/27/2024 ZE MAHMOOD [facility] [address] [place] [address] 10/11/2024 PANDA HUIZAR [facility] [address] [facility] [place] [address] 10/21/2024 ZE MAHMOOD Assessments Encounter Date Diagnosis [...] & Pelvis [place] & [place] [id number] 10/08/2024 Blood Urea Nitrogen (BUN) 10/08/2024 Creatinine Serum 10/08/2024 Insurance Providers Payer Name Payer Address Payer Phone Subscriber Number Group Number Insured Name Patient Relationship to Insured Coverage Start Date Coverage End Date Luis AGUILERA [address] [place], [place] [id number] Ernie Plasencia Self - patient is the insured Medical (General) History Medical History History ICD Code Renal mass Hypertension Hx of stroke Surgical History Surgery Date(Month/Year) splenectomy left hip replacement left knee repair Hospitalization History Reason Date(Month/Year) Heart issues stroke
--- OUTSIDE RECORDS SUMMARY | 2025-06-27 14:02 | XMS_ITS | Clinical Summary ---
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 Gender Identity Not on file Sexual Orientation [...] (#1) 2025 Medical Devices Implanted Type Area Cigarette Stamper Device Identifier Shelf Expiration Date Model / Serial / Lot Cup Pinn Sctr Series 56mm 1217-22-056 - [id number] Implanted:Qty: 1 on 02/07/2017 by Jeremy Coyne MD Hip Left: Hip [employer] 12/01/2026 6 / / [id number] Head Fem Art/Carlos Cer Sz36 1365-36-320 - [id number] Implanted:Qty: 1 on 02/07/2017 by Jeremy Coyne MD Hip Left: Hip [employer] REBA 11/01/2021 1365-36- 32 0 / / [id number] Hole Eliminator Ono 1246-03-000 - [id number] Implanted:Qty: 1 on 02/07/2017 by Jeremy Coyne MD Hip Left: Hip [employer] 09/03/2026 0 / / [id number] Liner Pinn Altrx Poly 1221-36-056 - [id number] Implanted:Qty: 1 on 02/07/2017 by Jeremy Coyne MD Hip Left: Hip [employer] 11/01/2021 6 / / [id number] Stem Fem Actis Hi Colr Sz5 1010-12-050 - [id number] Implanted:Qty: 1 on 02/07/2017 by Jeremy Coyne MD Hip Left: Hip [employer] 11/01/2025 1010-07-08 0 / / [id number] Procedures Procedure Name Priority Date/Time Associated Diagnosis Comments HEMOGLOBIN A1C Routine 01/10/2017 11:10 AM CDT from Last 3 Months or Most Recently Relevant to Health Maintenance Results * (ABNORMAL) HEMOGLOBIN A1C (01/10/2017 11:10 AM CDT) HEMOGLOBIN A1C 6.3(H) 4.0 - 6.0 % 01/10/2017 11:53 AM CDT [facility] EST. AVG GLUCOSE, A1C 134 mg/dL 01/10/2017 11:53 AM CDT [facility] Blood Collection / Unknown 01/10/2017 11:10 AM CDT 01/10/2017 11:37 AM CDT us Vipin Reddy MD CHEMISTRY ORDERABLES Final Resu lt [facility] #[id number] [address] [address] [facility] #[id number] [address] [place] [id number] from Last 3 Months or Most Recently Relevant to Health Maintenance Insurance [facility] OPTIONS PPO [id number] CHOICE PLUS * Guarantor: ERNIE GARCIA Account Type Relation to Patient Date of Phone Billing Address Personal/Family [address] [address] Care Teams Manager Regulatory Relationship Specialty Start Date End Date Umair Milton MD [address] [address] [place] [id number] PCP - General Set Designer 02/07/17
--- OUTSIDE RECORDS SUMMARY | 2025-06-27 14:02 | XMS_ITS | Data Portability ---
Author Organization KATHERIN Milton, Telemedicine Address [address] [address] Assessment No assessment recorded. Plan of Treatment [...] ist referral 2020 021 Jenifer Thompson MD, [facility], [address], [address], 12:50:02 Procedures None recorded. Surgeries None recorded. Imaging XR, chest, 2 view 2020 021 [email or web address] Umair Milton MD, [address], [address], [place], [address], 15:28:15 Medication Orders Trulicity 1.5 mg/0.5 mL subcutaneou s pen injector 2020 [facility] #[id number], [address], [place], [place], [id number], 10:53:04 losartan 50 mg tablet 2020 [facility] #36005, [address], [place], [place], [id number], 11:10:30 ketorolac 60 mg/2 mL intramuscul ar solution 2020 021 [email or web address] Not available 10:51:16 naproxen 500 mg tablet 2020 021 [facility] #94385, [address], [place], [place], [id number], 16:36:32 losartan 100 mg tablet 2020 021 [facility] #50334, [address], [place], [place], [id number], 10:49:49 Bactrim DS 800 mg-160 mg tablet 2020 021 [email or web address] [facility] #54172, [address], [place], [place], [id number], 10:51:20 Ozempic 0.25 mg or 0.5 mg (2 mg/1.5 mL) subcutaneou s pen injector 2020 021 [email or web address] 2 [facility] #[id number], [address], [place], [place], [id number], 10:53:38 baclofen 10 mg tablet 2020 021 [facility] #72665, [address], [place], [place], [id number], 15:20:14 Patient TargetsNo targets recorded. Patient Instructions Encounter Date Encounter Id Patient Instructions Last Modified By Organization Details Last Modified Time 11/29/2020 [id number] gout: care instructions Not available 11/29/2020 15:19:53 high blood pressure: care instructions Not available 11/29/2020 15:19:52 learning about high blood pressure Not available 11/29/2020 15:19:52 check labs and cont to follow. pt with several complaints and likely related to PK def and or uncontrolled htn/dm. check labs and get an idea where to go from here Not available 11/29/2020 16:42:00 12/27/2020 [id number] type 2 diabetes: care instructions Not available 12/27/2020 10:49:35 Long d/w pt on labs and concerns i have. will address diabetes and HTN. start on ozempic and losartan. will try to get pt established with rheum to help manage meds and issues. will give abx for lesion on back. suspect insect bite and will cont to monitor Not available 12/27/2020 13:00:21 02/01/2021 [id number] pleurisy: care instructions Not available 02/01/2021 16:36:24 03/01/2021 [id number] abdominal pain: care instructions Not available 03/01/2021 [...] effects improve. Not available 03/01/2021 12:39:57 04/10/2021 [id number] high blood pressure: care instructions Not available 04/10/2021 10:52:47 learning about high blood pressure Not available 04/10/2021 10:52:47 high cholesterol : care instructions Not available 04/10/2021 10:52:47 will trade from ozempic to trulicity and see if better tolerated. cont to follow. 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 5 Not Available [facility] [address] [place], [address], 11/30/2020 07:25:33 11/30/1911/30/2020 testo stero ne, total , serum testosterone 333 NG/dL 300-89 0 Not Available [facility] [address] [place], [address], 11/30/2020 07:25:33 11/30/1911/30/2020 PSA, serum or plasm a PSA 1.49 NG/mL 0.00-4 .00 Comme nt for PSA Test perfo rmed using the Cooper elect cooper milum inesc ent immun oassa y (ECLI A). Not Available [facility] [address] [place], [address], 11/30/2020 07:25:34 11/30/19 21 11/30/2020 CBC w/ auto diff WBC 13.8 K/uL 4.0-11 .0 high Not Available [facility] [address] [place], [address], 11/30/2020 07:25:34 11/30/19 21 11/30/2020 CBC w/ auto diff RBC 3.21 M/uL 4.30-5 .70 low Not Available [facility] [address] [place], [address], 11/30/2020 07:25:34 11/30/19 21 11/30/2020 CBC w/ auto diff hemoglobin 10.8 g/dL 13.0-1 7.5 low Not Available [facility] [address] [place], [address], 11/30/2020 07:25:34 11/30/19 21 11/30/2020 CBC w/ auto diff hematocrit 34.0 % 39.0-5 5.0 low Not Available [facility] [address] [facility] [place], [address], 11/30/2020 07:25:34 11/30/19 21 11/30/2020 CBC w/ auto diff MCV 105.9 fL 78.0-1 02.0 high Not Available [facility] [address] [place], [place], [address], 11/30/2020 07:25:34 11/30/19 21 11/30/2020 CBC w/ auto diff MCH 33.6 pg 25.0-3 5.0 Not Available [facility] [address], [place], [address], 11/30/2020 07:25:34 11/30/19 21 11/30/2020 CBC w/ auto diff MCHC 31.8 g/dL 30.0-3 8.0 Not Available [facility] [address] [place], [address], 11/30/2020 07:25:34 11/30/19 21 11/30/2020 CBC w/ auto diff RDW 12.8 % 11.5-1 6.0 Not Available [facility] [address] [place], [address], 11/30/2020 07:25:34 11/30/19 21 11/30/2020 CBC w/ auto diff platelet count 433 K/uL 150-45 0 Not Available [facility] [address] [place], [place], [address], 11/30/2020 07:25:34 11/30/19 21 11/30/2020 CBC w/ auto diff abs neutrophils 8.2 K/uL 1.8-7. 0 high Not Available [facility] [address], [place], [address], 11/30/2020 07:25:34 11/30/19 21 11/30/2020 CBC w/ auto diff abs lymphocytes 2.9 K/uL 1.0-4. 0 Not Available [facility] [address] [place], [place], [address], 11/30/2020 07:25:34 11/30/19 21 11/30/2020 CBC w/ auto diff abs monocytes 1.8 K/uL 0.1-1. 1 high Not Available [facility] [address] [place], [address], 11/30/2020 07:25:34 11/30/19 21 11/30/2020 CBC w/ auto diff abs eosinophils 0.3 K/uL 0.0-0. 5 Not Available [facility] [address], [place], [address], 11/30/2020 07:25:34 11/30/19 21 11/30/2020 CBC w/ auto diff abs basophils 0.1 K/uL 0.0-0. 3 Not Available [facility] [address] [place], [address], 11/30/2020 07:25:34 11/30/19 21 11/30/2020 CBC w/ auto diff abs bands 0.4 K/uL <0.1 high Not Available [facility] [address] [place], [address], 11/30/2020 07:25:34 11/30/19 21 11/30/2020 CBC w/ auto diff neutrophils 59.6 % Not Available [facility] [address] [place], [address], 11/30/2020 07:25:34 11/30/19 21 11/30/2020 CBC w/ auto diff lymphocytes 21.3 % Not Available [facility] [address] [place], [place], [address], 11/30/2020 07:25:34 11/30/19 21 11/30/2020 CBC w/ auto diff monocytes 13.4 % Not Available [facility] [address] [place], [address], 11/30/2020 07:25:34 11/30/19 21 11/30/2020 CBC w/ auto diff eosinophils 2.1 % Not Available [facility] [address] [place], [address], 11/30/2020 07:25:34 11/30/19 21 11/30/2020 CBC w/ auto diff basophils 1.0 % Not Available [facility] [address] [facility] [place], [address], 11/30/2020 07:25:34 11/30/19 21 11/30/2020 CBC w/ auto diff bands 2.6 % Not Available [facility] [address] [facility] [place], [address], 11/30/2020 07:25:34 11/30/19 21 11/30/2020 blood film for revmckayla w blood film for review See Note Comme nts on Lab Id:[id number] RBC Morph ology : Spher ocyte s +, Targe t cells +, Aniso cytos is ++, Macro cytes ++, Poiki locyt osis +++, Polyc hroma tic cells +++, Large Plate lets ++, Giant Plate lets ++, Plate let Clump s ++ Plate lets Liza l Not Available [facility] [address] [facility] [place], [address], 11/30/2020 07:25:35 11/30/19 21 12/01/2020 CMP, serum or plasm a sodium 136 mEq/L 135-14 6 Not Available [facility] [address] [facility] [place], [address], 12/01/2020 05:28:13 11/30/19 21 12/01/2020 CMP, serum or plasm a potassium 4.9 mEq/L 3.5-5. 4 Not Available [facility] [address] [facility] [place], [address], 12/01/2020 05:28:13 11/30/19 21 12/01/2020 CMP, serum or plasm a chloride 100 mEq/L 95-107 Not Available [facility] [address] [facility] [place], [address], 12/01/2020 05:28:13 11/30/19 21 12/01/2020 CMP, serum or plasm a carbon dioxide 19 mEq/L 19-31 Not Available [facility] [address] [place], [address], 12/01/2020 05:28:13 11/30/19 21 12/01/2020 CMP, serum or plasm a anion gap 17 mEq/L 7-23 Not Available [facility] [address] [place], [address], 12/01/2020 05:28:13 11/30/19 21 12/01/2020 CMP, serum or plasm a glucose non-fasting 432 mg/dL 70-139 high Not Available [facility] [address] [place], [place], [address], 12/01/2020 05:28:13 11/30/19 21 12/01/2020 CMP, serum or plasm a urea nitrogen (BUN) 21 mg/dL 6-20 high Not Available [facility] [address] [place], [place], [address], 12/01/2020 05:28:13 11/30/1912/01/2020 CMP, serum or plasm a creatinine 1.19 mg/dL 0.80-1 .40 Not Available [facility] [address] [place], [place], [address], 12/01/2020 05:28:13 11/30/1912/01/2020 CMP, serum or plasm a eGFR 80 mL/mi n/1.7 3m'2 >59 Not Available [facility] [address] [place], [address], 12/01/2020 05:28:13 11/30/19 21 12/01/2020 CMP, serum or plasm a eGFR non- amer 69 mL/mi n/1.7 3m'2 >59 Not Available [facility] [address] [place], [address], 12/01/2020 05:28:13 11/30/19 21 12/01/2020 CMP, serum or plasm a BUN/creatini ne ratio 18 ratio Not Available [facility] [address] [place], [address], 12/01/2020 05:28:13 11/30/19 21 12/01/2020 CMP, serum or plasm a calcium total 10.5 mg/dL 8.5-10 .5 Not Available [facility] [address] [place], [address], 12/01/2020 05:28:13 11/30/19 21 12/01/2020 CMP, serum or plasm a protein total 7.2 g/dL 6.1-8. 3 Not Available [facility] [address] [place], [address], 12/01/2020 05:28:13 11/30/19 21 12/01/2020 CMP, serum or plasm a albumin 4.5 g/dL 3.5-5. 2 Not Available [facility] [address] [place], [address], 12/01/2020 05:28:13 11/30/19 21 12/01/2020 CMP, serum or plasm a globulin 2.7 g/dL 1.7-4. 3 Not Available [facility] [address] [place], [address], 12/01/2020 05:28:13 11/30/19 21 12/01/2020 CMP, serum or plasm a A/G ratio 1.7 ratio 0.9-2. 8 Not Available [facility] [address] [facility] [place], [address], 12/01/2020 05:28:13 11/30/19 21 12/01/2020 CMP, serum or plasm a bilirubin total 0.9 mg/dL 0.0-1. 2 Not Available [facility] [address] [facility] [place], [address], 12/01/2020 05:28:13 11/30/19 21 12/01/2020 CMP, serum or plasm a alkaline phosphatase 124 U/L 40-121 high Not Available [facility] [address] [facility] [place], [address], 12/01/2020 05:28:13 11/30/19 21 12/01/2020 CMP, serum or plasm a AST (SGOT) 19 U/L 9-50 Not Available [facility] [address] [facility] [place], [address], 12/01/2020 05:28:13 11/30/19 21 12/01/2020 CMP, serum or plasm a ALT (SGPT) 27 U/L 5-50 Not Available [facility] [address] [facility] [place], [address], 12/01/2020 05:28:13 03/01/20 21 03/02/2021 COMP METAB OLIC PANEL sodium 137 mEq/L 135-14 6 Not Available [facility] [address] [facility] [place], [address], 03/02/2021 07:13:23 03/01/20 21 03/02/2021 COMP METAB OLIC PANEL potassium 4.7 mEq/L 3.5-5. 4 Not Available [facility] [address] [place], [address], 03/02/2021 07:13:23 03/01/20 21 03/02/2021 COMP METAB OLIC PANEL chloride 107 mEq/L 95-107 Not Available [facility] [address] [place], [address], 03/02/2021 07:13:23 03/01/20 21 03/02/2021 COMP METAB OLIC PANEL carbon dioxide 17 mEq/L 19-31 low Not Available [facility] [address] [place], [place], [address], 03/02/2021 07:13:23 03/01/20 21 03/02/2021 COMP METAB OLIC PANEL anion gap 13 mEq/L 7-23 Not Available [facility] [address] [place], [address], 03/02/2021 07:13:23 03/01/20 21 03/02/2021 COMP METAB OLIC PANEL glucose fasting 249 mg/dL 70-99 high Not Available [facility] [address] [place], [place], [address], 03/02/2021 07:13:23 03/01/20 21 03/02/2021 COMP METAB OLIC PANEL urea nitrogen (BUN) 22 mg/dL 6-20 high Not Available [facility] [address] [place], [place], [address], 03/02/2021 07:13:23 03/01/20 21 03/02/2021 COMP METAB OLIC PANEL creatinine 1.07 mg/dL 0.80-1 .40 Not Available [facility] [address] [place], [place], [address], 03/02/2021 07:13:23 03/01/20 21 03/02/2021 COMP METAB OLIC PANEL eGFR 91 mL/mi n/1.7 3m'2 >59 Not Available [facility] [address] [place], [address], 03/02/2021 07:13:23 03/01/20 21 03/02/2021 COMP METAB OLIC PANEL eGFR non- amer 79 mL/mi n/1.7 3m'2 >59 Not Available [facility] [address] [place], [place], [address], 03/02/2021 07:13:23 03/01/20 21 03/02/2021 COMP METAB OLIC PANEL BUN/creatini ne ratio 21 ratio Not Available [facility] [address], [place], [address], 03/02/2021 07:13:23 03/01/20 21 03/02/2021 COMP METAB OLIC PANEL calcium total 10.2 mg/dL 8.5-10 .5 Not Available [facility] [address], [place], [address], 03/02/2021 07:13:23 03/01/20 21 03/02/2021 COMP METAB OLIC PANEL protein total 7.0 g/dL 6.1-8. 3 Not Available [facility] [address], [place], [address], 03/02/2021 07:13:23 03/01/20 21 03/02/2021 COMP METAB OLIC PANEL albumin 4.3 g/dL 3.5-5. 2 Not Available [facility] [address] [place], [place], [address], 03/02/2021 07:13:23 03/01/20 21 03/02/2021 COMP METAB OLIC PANEL globulin 2.7 g/dL 1.7-4. 3 Not Available [facility] [address] [place], [address], 03/02/2021 07:13:23 03/01/20 21 03/02/2021 COMP METAB OLIC PANEL A/G ratio 1.6 ratio 0.9-2. 8 Not Available [facility] [address] [place], [address], 03/02/2021 07:13:23 03/01/20 21 03/02/2021 COMP METAB OLIC PANEL bilirubin total 1.2 mg/dL 0.0-1. 2 Not Available [facility] [address] [place], [address], 03/02/2021 07:13:23 03/01/20 21 03/02/2021 COMP METAB OLIC PANEL alkaline phosphatase 99 U/L 40-121 Not Available [facility] [address] [place], [address], 03/02/2021 07:13:23 03/01/20 21 03/02/2021 COMP METAB OLIC PANEL AST (SGOT) 18 U/L 9-50 Not Available [facility] [address] [place], [address], 03/02/2021 07:13:23 03/01/20 21 03/02/2021 COMP METAB OLIC PANEL ALT (SGPT) 25 U/L 5-50 Not Available [facility] [address] [place], [address], 03/02/2021 07:13:23 03/01/20 21 03/02/2021 LIPID PROFI LE cholesterol 225 mg/dL <200 high Not Available [facility] [address] [place], [address], 03/02/2021 07:13:23 03/01/20 21 03/02/2021 LIPID PROFI LE triglyceride s 251 mg/dL 0-149 high Not Available [facility] [address] [place], [address], 03/02/2021 07:13:23 03/01/20 21 03/02/2021 LIPID PROFI LE HDL cholesterol 33 mg/dL >39 low Not Available [facility] [address] [place], [address], 03/02/2021 07:13:23 03/01/20 21 03/02/2021 LIPID PROFI LE LDL cholesterol 151 mg/dL <100 high Not Available [facility] [address] [place], [address], 03/02/2021 07:13:23 03/01/20 21 03/02/2021 LIPID PROFI LE non HDL cholesterol 192 mg/dL <130 high Not Available [facility] [address] [place], [address], 03/02/2021 07:13:23 03/01/20 21 03/02/2021 LIPID PROFI [...] Optim al) Coron martínez Risk Ratio : Hurley ge for males < 4.97 NOTE: LDL calcu latio n updat ed to [facility] formu la on 1. Pleas e conta ct [facility]EL to obtai n addit ional infor delroy n on this new calcu latio n. Not Available [facility] [address] [facility] [place], [address], 03/02/2021 07:13:23 03/01/20 21 03/02/2021 HEMOG LOBIN A1C hemoglobin A1C 7.7 % 4.2-5. 6 high Not Available [facility] [address] [facility] [place], [address], 03/02/2021 07:13:24 03/01/20 21 03/02/2021 HEMOG LOBIN [...] labor atory consu ltati on. Not Available [facility] [address] [facility] [place], [address], 03/02/2021 07:13:24 03/01/20 21 03/02/2021 CBC WITH DIFFE RENTI AL WBC 15.9 K/uL 4.0-11 .0 high Not Available [facility] [address] [facility] [place], [address], 03/02/2021 07:13:24 03/01/20 21 03/02/2021 CBC WITH DIFFE RENTI AL RBC 2.95 M/uL 4.30-5 .70 low Not Available [facility] [address] [place], [address], 03/02/2021 07:13:24 03/01/20 21 03/02/2021 CBC WITH DIFFE RENTI AL hemoglobin 10.0 g/dL 13.0-1 7.5 low Not Available [facility] [address] [place], [address], 03/02/2021 07:13:24 03/01/20 21 03/02/2021 CBC WITH DIFFE RENTI AL hematocrit 31.6 % 39.0-5 5.0 low Not Available [facility] [address], [place], [address], 03/02/2021 07:13:24 03/01/20 21 03/02/2021 CBC WITH DIFFE RENTI AL MCV 107.1 fL 78.0-1 02.0 high Not Available [facility] [address], [place], [address], 03/02/2021 07:13:24 03/01/20 21 03/02/2021 CBC WITH DIFFE RENTI AL MCH 33.9 pg 25.0-3 5.0 Not Available [facility] [address] [place], [address], 03/02/2021 07:13:24 03/01/20 21 03/02/2021 CBC WITH DIFFE RENTI AL MCHC 31.6 g/dL 30.0-3 8.0 Not Available [facility] [address], [place], [address], 03/02/2021 07:13:24 03/01/20 21 03/02/2021 CBC WITH DIFFE RENTI AL RDW 13.9 % 11.5-1 6.0 Not Available [facility] [address] [place], [address], 03/02/2021 07:13:24 03/01/20 21 03/02/2021 CBC WITH DIFFE RENTI AL platelet count 462 K/uL 150-45 0 high Not Available [facility] [address] [place], [place], [address], 03/02/2021 07:13:24 03/01/20 21 03/02/2021 CBC WITH DIFFE RENTI AL abs neutrophils 9.8 K/uL 1.8-7. 0 high Not Available [facility] [address] [place], [place], [address], 03/02/2021 07:13:24 03/01/20 21 03/02/2021 CBC WITH DIFFE RENTI AL abs lymphocytes 3.3 K/uL 1.0-4. 0 Not Available [facility] [address] [place], [place], [address], 03/02/2021 07:13:24 03/01/20 21 03/02/2021 CBC WITH DIFFE RENTI AL abs monocytes 1.7 K/uL 0.1-1. 1 high Not Available [facility] [address] [facility] [place], [address], 03/02/2021 07:13:24 03/01/20 21 03/02/2021 CBC WITH DIFFE RENTI AL abs eosinophils 0.7 K/uL 0.0-0. 5 high Not Available [facility] [address] [place], [address], 03/02/2021 07:13:24 03/01/20 21 03/02/2021 CBC WITH DIFFE RENTI AL abs basophils 0.1 K/uL 0.0-0. 3 Not Available [facility] [address] [place], [address], 03/02/2021 07:13:24 03/01/20 21 03/02/2021 CBC WITH DIFFE RENTI AL abs bands 0.3 K/uL <0.1 high Not Available [facility] [address], [place], [address], 03/02/2021 07:13:24 03/01/20 21 03/02/2021 CBC WITH DIFFE RENTI AL neutrophils 61.7 % Not Available [facility] [address] [place], [address], 03/02/2021 07:13:24 03/01/20 21 03/02/2021 CBC WITH DIFFE RENTI AL lymphocytes 20.6 % Not Available [facility] [address] [place], [place], [address], 03/02/2021 07:13:24 03/01/20 21 03/02/2021 CBC WITH DIFFE RENTI AL monocytes 10.7 % Not Available [facility] [address] [place], [address], 03/02/2021 07:13:24 03/01/20 21 03/02/2021 CBC WITH DIFFE RENTI AL eosinophils 4.5 % Not Available [facility] [address] [place], [place], [address], 03/02/2021 07:13:24 03/01/20 21 03/02/2021 CBC WITH DIFFE RENTI AL basophils 0.8 % Not Available [facility] [address] [place], [address], 03/02/2021 07:13:24 03/01/20 21 03/02/2021 CBC WITH DIFFE RENTI AL bands 1.7 % Not Available [facility] [address] [place], [address], 03/02/2021 07:13:24 03/01/20 21 03/02/2021 BLOOD FILM FOR FELICIANO Parra blood film for review See Note Brian nts on Lab Id:[id number] RBC Morph ology : Schis tocyt es +, Aniso cytos is ++, Macro cytes ++, Poiki locyt osis +++, Polyc hroma tic cells + Plate lets Incre ased Not Available [facility] [address] [place], [address], 03/02/2021 07:13:25 11/30/19 21 XR, chest , 2 view No observ ation record ed. Umair Milton MD [address], [place], [address], 11/29/2020 15:19:54 11/30/19 21 11/29/2020 XR, chest , 2 view No observ ation record ed. Umair Milton MD [address], [place], [address], 11/29/2020 15:56:34 Result Notes None recorded. 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 [place], [place] - Umair Milton 6 10:28:28 Chronic tophaceous gout [id number] Alfred Milton MD [address] [place], [address], [place] - Umair Milton 5 10:56:37 Diabetes mellitus 98123024 Active [place], KATHERIN Milton 6 10:28:28 Impotence Active [place], [address], [facility] Umair Milton 5 10:56:37 Tick bite 13069658 Active Umair Milton MD [place], [place], [address], [facility] Umair Karine 5 12:45:10 Abdominal pain 30798502 [place], [address], [facility] Umair Karine 5 12:45:10 Essential hypertension 29432138 Active Conchis beasley [facility] Karine 6 10:28:28 Hyperlipidemia 09580870 Active Esperanza beasley [facility] Karine 6 13:07:03 Problem Notes None recorded. Procedures Surgical History Date Name Laterality Status Provider Name and Address Organization Details Recorded Time 5 Colonoscopy completed Esperanza Rebolledo [facility] Umair Milton 01/18/2015 15:40:36 4 Splenectomy completed Tiffany Hendrix [facility] Umair Milton 11/21/2014 13:13:59 Imaging Results None [...] Not Available Not Available No t Available [place] 10 mg-325 mg tablet Take 1 tablet every 4 hours by oral route as needed. 10/14 completed Not Available Not Available Not Available [place] 7.5 mg-325 mg tablet Take 1 tablet [...] Updated DateTime 1 180.34 cm 35.4 kg/m2 819789. 46 g 98 [degF] 90 /min 92 % 186/97 mm[Hg] Esperanza Rebolledo [place] [facility] 1 14:12:11 Date Recorded Body height Body mass index (BMI) Body weight Body temperature Oxygen saturation Heart rate Systolic And Diastolic Provider Name and Address Organization Details Last Updated DateTime 1 180.34 cm 34.6 kg/m2 000489. 91 g 97.2 [degF] 93 % 89 /min 189/100 mm[Hg] David Hutchisonson [facility] Umair [place] 1 10:19:54 Date Recorded Body height Body temperature Body mass index (BMI) Body weight Heart rate Oxygen saturation Systolic And Diastolic Provider Name and Address Organization Details Last Updated DateTime 1 180.34 cm 98.3 [degF] 34.2 kg/m2 588732. 13 g 101 /min 95 % 133/86 mm[Hg] Tiffany Hendrix [facility] Umair Wynnibner 1 15:59:08 Date Recorded Body height Body mass index (BMI) Body weight Body temperature Heart rate Oxygen saturation Systolic And Diastolic Provider Name and Address Organization Details Last Updated DateTime 1 180.34 cm 34 kg/m2 188652. 54 g 97.9 [degF] 94 /min 93 % 177/94 mm[Hg] David Littlejohn [facility] Umair Wynnibner 1 10:52:53 Date Recorded Body height Body mass index (BMI) Body weight Body temperature Heart rate Oxygen saturation Systolic And Diastolic Provider Name and Address Organization Details Last Updated DateTime 1 180.34 cm 33.3 kg/m2 157933. 58 g 96.9 [degF] 91 /min 96 % 135/80 mm[Hg] Esperanza Amaury [facility] Umair Wynnibner 1 09:52:19 Social History Question Answer Notes LastModified by Organizat ion Details LastModified Time Tobacco Smoking Status Never Smoker Not Available [facility] 06/06/2020 03:38:56 What Is Your Level Of Caffeine Consumption? Occasional [id number] Information not available 06/06/2020 How Much Tobacco Do You Chew? None [id number] Information not available 06/06/2020 What Type Of Diet Are You Following? REGULAR [id number] Information not available 06/06/2020 Education 12 Information no t available 11/21/2014 How Many Days In The Past Year Have You Had A Heavy Drinking Consumption (4+ Female, 5+ Male)? 0 Information not available 11/18/2016 Are There Any Guns Present In Your Home? No [id number] Information not available 06/06/2020 Hard Of Hearing Or Deaf In One Or Both Ears? No [email or web address] Information not available 11/21/2014 Legally Blind In One Or Both Eyes? No Information not available 11/21/2014 Live Alone Or With Others? With Others Information not available 05/09/2015 Risk Assessment Medium Informati on not available 09/03/2017 Marital Status [email or web address] Informatio n not available 11/21/2014 What Was The Date Of Your Most Recent Tobacco Screening? 06/26/2020 Information not available 06/26/2020 How Many Children Do You Have? 3 [id number] Information not available 06/06/2020 Seat Belts Used Routinely Yes Information not available 11/21/2014 Smoke Alarm In Home Yes [email or web address] Information not available 11/21/2014 Are You Passively Exposed To Smoke? No Information not available 05/09/2015 How Much Tobacco Do You Smoke? No [id number] Information not available 06/06/2020 General Stress Level Medium [email or web address] Information not available 11/21/2014 Do You Use Sunscreen Routinely? No [id number] Information not available 06/06/2020 Do You Have Difficulty Walking Or Climbing Stairs? No [id number] Information not available 06/06/2020 Sex: Unknown Functional Status Question Answer Note LastModified by Organizat ion Details LastModified Time What is your level of alcohol consumption? None [id number] Information not available 06/06/2020 Do you or have you ever used smokeless tobacco? Never used smokeless tobacco Information not available 06/26/2020 Are you currently employed? Yes [id number] Information not available 06/06/2020 Urinary incontinence assessment performed? Yes Information not available 11/18/2016 Do you have difficulty doing errands alone? No [id number] Information not available 06/06/2020 Are you able to care for yourself independently? Yes [id number] Information not available 06/06/2020 Do you have difficulty dressing, bathing, grooming, or toileting? No [id number] Information not available 06/06/2020 Do you or have you ever used e-cigarettes or vape? Never used electronic cigarettes Information not available 06/26/2020 What is your exercise level? None [id number] Information not available 06/06/2020 Mental Status Question Answer Note LastModified by Organization D etails LastModified Time Do you have difficulty concentrating, remembering or making decisions? No [id number] Information no t available 06/06/2020 Family History Nothing Reported. Medical History Condition Response Blood Diseases Y Blood Transfusion Y Immunizations Vaccine Type Date Status Note Provider Nam e and Address Organization Details Recorded Time Tdap 05/16/2014 completed Not Available [facility] 12/09/2022 15:33:33 Past Encounters Encounter ID Performer Location Encounter Start Date Encounter Closed Date Diagnosis/Indication Diagnosis SNOMED-CT Code Diagnosis ICD10 Code Diagnosis IMO Codes Diagnosis Note [id number] Umair Milton MD Main Office [address] [place] [address] 75069-484 1 11/21/2014 12:11:45 11/21/2014 14:05:23 Hematochezia [id number] cbc,cea. will set up for colonoscop y and follow. send lab results to [facility]. Chronic go uty arthritis 88647480 uric acid, cmp. pt may need to stop nsaid and allopurino l. sees rheum tomorrow. hesitant to give steroid injection while taking high dose steroid. 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 curious to see how much improved [place] y [id number] Umair Milton MD Main Office [address] [place] [address] 27800-677 1 05/09/2015 09:56:23 05/09/2015 11:10:21 Chronic tophaceous gout 45346919 M1A.9XX1 Diabetes mellitus 090669 09 E11.319 cbc,cmp, hgba1c Impotence 954018526 N52. 9 [id number] Umair Milton MD Main Office [address] [place] [address] 35832-076 1 06/05/2015 12:00:01 06/05/2015 12:52:46 Chronic gouty arthritis 24115568 M1A.9XX0 Tick bite 90029262 W57.X XXA cbc,cmp, tick panel Abdominal pain 99571820 R10.9 [id number] Umair Milton MD Main Office [address] [place] [address] 53229-135 1 11/08/2015 09:12:19 11/08/2015 10:34:03 Diabetes mellitus 35089401 E11.319 Chronic go uty arthritis 98763619 M1A.9XX0 Deficiency of pyruvate kinase 032651999 E88.89 Essential hypertension 50905303 I10 [id number] Umair Milton MD Main Office [address] [place] [address] 32579-968 1 05/22/2016 11:19:53 05/22/2016 12:52:47 Hyperlipidemia 92417754 E78.5 Essential hypertension 55916392 I10 Uncontroll ed type 2 diabetes mellitus 175256705 E11.65 Fatigue 95727457 R53.83 Chronic go uty arthritis 32978934 M1A.9XX0 Deficiency of pyruvate kinase 589954602 E88.89 Adult heal th examination 602514118 Z00.00 Administra tion of pneumococcal vaccine 33290463 Z23 [id number] Umair Milton MD Main Office [address] [place] [address] 37266-458 1 11/18/2016 14:47:07 11/18/2016 16:59:32 Depression screening 318082291 Z13.89 Arthritis of hip 7671081 6 M13.852 left hip - severe deg changes, Chronic go uty arthritis 37763562 M1A.9XX0 [id number] Umair Milton MD Main Office [address] [place] [address] 69962-625 1 10/14/2018 11:14:43 10/14/2018 12:26:20 Essential hypertension 71964849 I10 Hyperlipidemia 91296905 E78.5 Diabetes mellitus 359121 09 E11.319 Chronic go uty arthritis 02536294 M1A.9XX0 Strain of back muscle 26 6627761 S39.012A Cerebrovas cular accident 155844996 I63.9 [id number] Umair Milton MD Main Office [address] [place] [address] 22521-183 1 12/01/2018 11:40:11 12/01/2018 12:45:33 Uncontrolled type 2 diabetes mellitus 954069179 E11.65 Hyperlipidemia 80522940 E78.5 Gout 50604376 M10.9 Anemia of chronic disease 648741967 D63.8 [id number] Umair Milton MD Main Office [address] [place] [address] 18089-489 1 12/08/2019 14:43:55 12/08/2019 15:50:39 Obstruction of lacrimal canaliculus 418363188 H04.549 Onychomyco sis of toenails 539826910 B35.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 1A.9XX1 [id number] Umair Milton MD Main Office [address] [place] [address] 79049-410 1 06/26/2020 14:05:51 06/26/2020 14:50:45 Hyperlipidemia 61584457 E78.5 Essential hypertension 09657774 I10 Chronic go uty arthritis 19569667 M1A.9XX0 Diabetes mellitus 501360 09 E11.319 Strain of back muscle 26 7287475 S39.012A Deficiency of pyruvate kinase 319769011 E88.89 [id number] Umair Milton MD Main Office [address] [place] [address] 57306-051 1 11/29/2020 14:07:30 11/29/2020 15:28:15 Chest wall pain 078006763 R07.89 Chest - unremarkab le Essential hypertension 95552784 I10 Gout 37907706 M10.9 Hypogonadism 25845766 E2 9.1 Deficiency of pyruvate kinase 631723637 E88.89 [id number] Umair Milton MD Main Office [address] [place] [address] 85866-259 1 12/27/2020 10:06:14 12/27/2020 17:46:28 Uncontrolled type 2 diabetes mellitus 278021962 E11.65 Hypertensive disorder 38 898335 I10 Chronic go uty arthritis 47321816 M1A.9XX0 Insect bite - wound 0004 59819 T14.8XXA Deficiency of pyruvate kinase 722692954 E88.89 [id number] Umair Milton MD Main Office [address] [place] [address] 37831-898 1 02/01/2021 15:36:36 02/06/2021 12:17:09 Pleurisy 842549009 R09.1 [id number] Umair Milton MD Main Office [address] [place] [address] 1 03/01/2021 10:40:11 03/01/2021 11:24:02 Deficiency of pyruvate kinase 880982563 E88.89 Abdominal pain 78733034 R10.9 Impotence 930835316 N52. 9 Essential hypertension 97111126 I10 Uncontroll ed type 2 diabetes mellitus 171685694 E11.65 [id number] Umair Milton MD Main Office [address] [place] [address] [place] [address] 1 04/10/2021 09:43:24 04/10/2021 10:58:38 Hyperlipidemia 39334030 E78.5 Essential hypertension 26097146 I10 Chronic go uty arthritis 12624465 M1A.9XX0 Diabetes mellitus 103441 09 E11.319 Health Concerns Section Related Observation LastModified by Organization Detai ls LastModified Time None Recorded Concern Status LastModified by Organization Details LastModified Time None Recorded Advance Directives Directive None Recorded Payers Insurance Date Sequence Insurance Name Policy Number Policy Colón Covered Member ID Colón Member ID Guarantor Name 06/05/2015 1 [facility] [id number] Ernie Plasencia [id number] Ernie Plasencia 10/14/2018 1 [employer] - OPEN ACCESS MANAGED CHOICE (POS) [id number] Ruth Ann Plasencia [id number] Ernie Plasencia 07/10/2021 1 [facility] [id number] Ruth Ann Plasencia [id number] Ernie Plasencia Notes Date Note Type Note [...] his hormones checked Umair Milton MD [address] [place], [address], [place] - Umair Milton 11/29/2020 16:42:05 1 [...] Umair Milton MD [address] [place], [address], KATHERIN Milton 12/27/2020 13:01:01 1 text/html Musculoskeletal [...] in left hand. Umair Milton MD [address] [place], [address], KATHERIN Milton 02/01/2021 17:44:24 1 text/html Musculoskeletal [...] Umair Milton MD [address] [place], [address], KATHERIN Milton 03/01/2021 12:40:01 1 text/html Hypertension [...] Umair Milton MD [address] [place], [address], KATHERIN Milton 04/10/2021 13:37:37
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
--- OUTSIDE RECORDS SUMMARY | 2025-06-27 14:02 | XMS_ITS | Patient Health Record ---
Author Organization [facility] [employer] [facility] Address [address] [place] [address] [place] [address] Care Team Providers Care Wallpaper Installer Name Role Phone Kush Kaye Primary Care [...] school What is your current work situation? [employer] In the past year, have [...] phone, visiting friends or family, going to buddhist or club meetings) 1 or 2 times a week How stressed are you? Stress is when someone feels tense, nervous, anxious, or can't sleep at night because their mind is troubled Not at all In the past year have you sp ent more than 2 nights in a row in a care home, residential, prison center, or juvenile correctional facility? No Are [...] US: no Cherry Chu 10/09/2022 03:39:57 PM SHERIFF > , No Alcohol: no Amber Scott any 10/09/2022 03:39:40 PM SHERIFF > , never Smoking: no Sonia Amber any 10/09/2022 03:39:37 PM SHERIFF > , NO Sexually active: Freida Scotty 10/09/2022 03:40:00 PM SHERIFF > Recreational drug use: no Sonia Cherry 10/09/2022 03:39:38 PM SHERIFF > , Denies Exercise: no Amber Scott any 10/09/2022 03:39:56 PM SHERIFF > , No Caffeine: yes Sonia Amber any 10/09/2022 03:39:54 PM SHERIFF > , Yes Advance Directive no Sonia, Linda luna 10/09/2022 03:40:06 PM SHERIFF > , None Herbal & OTC medications no Dennis stringer Cherry 10/09/2022 03:40:02 PM SHERIFF > , none Depression Screening Completed: no Sonia Cherry 10/09/2022 03:56:02 PM SHERIFF > , PHQ2 Pre-Visit Planning Completed: yes Sudeep olivia Cherry 10/09/2022 03:39:34 PM SHERIFF > , Same Day Appointment Diabetic testing: no Linda Scott 10/09/2022 03:40:08 PM SHERIFF > , Not diabetic Plan Of Treatment No Information Insurance Providers Payer Name Payer Address Payer Phone Subscriber Number Group Number Insured Name Patient Relationship to Insured Coverage Start Date Coverage End Date [employer] MEDICARE ADVANTAGE CHOICE [address] [address] [place] [address] [phone] [id number] TERRY GARCIA Self - patient is the insured Medications Administered Medication Instructions Date of Administration Dosage Notes cefTRIAXone Sodium 10/09/2022 1 g pt tolerated shot well [facility] [id number] Medical (General) History Medical History History ICD Code stroke Hospitalization History Reason Date(Month/Year) STROKE 111 YEARS AGO
--- OUTSIDE RECORDS SUMMARY | 2025-06-27 14:03 | XMS_ITS | Clinical Summary ---
Author Organization [facility] Address [address] [place] [address] Phone Care Team Providers Care Head Mixer Name Role Phone Umair Milton MD Primary Care Provider [phone] Allergies No known active allergies Medications allopurinol (ZYLOPRIM) 300 mg tablet Take 300 mg by mouth 2 times daily . Active folic acid (FOLVITE) 1 mg tablet Take 1 mg by mouth daily brand strategist. Active niacin (NIACOR) 50 mg Tablet Take [...] 36.9 C (98.4 F) 09/18/2017 1:21 PM CYBER SECURITY ADMINISTRATOR Respiratory Rate 20 07/10/2017 1:10 PM CYBER SECURITY ADMINISTRATOR Oxygen Saturation 97% 07/10/2017 1:10 PM CYBER SECURITY ADMINISTRATOR Inhaled Oxygen Concentration - - Weight 111.1 [...] (#1) 2025 Medical Devices Implanted Type Area Personnel Technician Device Identifier Shelf Expiration Date Model / Serial / Lot Cup Pinn Sctr Series 56mm 1217-22-056 - [id number] Implanted:Qty: 1 on 02/07/2017 by Jeremy Coyne MD at [facility] Hip Left: Hip [employer] 12/01/2026 6 / / [id number] Hole Eliminator [place] 1246-03-000 - [id number] Implanted:Qty: 1 on 02/07/2017 by Jeremy Coyne MD at [facility] Hip Left: Hip [employer] 09/03/2026 0 / / [id number] Stem Fem Actis Hi Colr Sz5 1010-12-050 - [id number] Implanted:Qty: 1 on 02/07/2017 by Jeremy Coyne MD at [facility] Hip Left: Hip [employer] 11/01/2025 1010-07-08 0 / / [id number] Head Fem Art/Carlos Cer Sz36 1365-36-320 - [id number] Implanted:Qty: 1 on 02/07/2017 by Jeremy Coyne MD at [facility] Hip Left: Hip [employer] 11/01/2021 1365-36-3 2 0 / / [id number] Liner Pinn Altrx Poly 1221-36-056 - [id number] Implanted:Qty: 1 on 02/07/2017 by Jeremy Coyne MD at [facility] Hip Left: Hip [employer] 11/01/2021 6 / / [id number] Procedures Procedure Name Priority Date/Time Associated Diagnosis Comments HEMOGLOBIN A1C Routine 01/10/2017 11:10 AM CDT from Last 3 Months or Most Recently Relevant to Health Maintenance Results * (ABNORMAL) HEMOGLOBIN A1C (01/10/2017 11:10 AM CDT) HEMOGLOBIN A1C 6.3(H) 4.0 - 6.0 % 01/10/2017 11:53 AM CDT [facility] EST. AVG GLUCOSE, A1C 134 mg/dL 01/10/2017 11:[address] [facility] Blood Collection / Unknown 01/10/2017 11:10 AM CDT 01/10/2017 11:37 AM CDT us Vipin Reddy MD CHEMISTRY ORDERABLES Final Resu lt [facility] CLIA #[id number] [address] [place], [place] [address] from Last 3 Months or Most Recently Relevant to Health Maintenance Insurance [employer] LOCAL Advance Directives For more information, please contact: [phone] * Full Code (Latest Code Status on [...] 11:47 AM 02/08/2017 3:55 PM Care Teams Head Mixer Relationship Specialty Start Date End Date Umair Milton MD [address] [place] [address] [place] CRESPO [id number] PCP - General Tail Board Man 02/07/17
--- NOTE | 2025-06-27 14:10 | XRR_ITS ---
PROCEDURE INFORMATION: Exam: XR Chest Exam date and time: 06/27/2025 2:14 PM Age: 59 years old Clinical indication: Pain; Angina pectoris; Dizzy, nausea; Additional info: Cp TECHNIQUE: Imaging protocol: Radiologic exam of the chest. Views: 1 view. COMPARISON: CR (CHEST, ) 06/25/2025 6:27 AM FINDINGS: Lungs: No change from previous. Remains elevation of the left hemidiaphragm and probable atelectatic changes left base which should be correlated clinically. Rush to be small calcified granulomas right lung unchanged. No consolidation seen. Pleural spaces: Unremarkable. No pleural effusion. No pneumothorax. Heart/Mediastinum: Unremarkable. No cardiomegaly. Bones/joints: Mild right convexity thoracic scoliosis. Mild degenerative changes. Upper abdomen: Unremarkable. XR/XR chest 1V portable [id number] IMPRESSION: No acute findings.
--- NOTE | 2025-06-27 14:27 | ECG_ITS ---
[facility] Test Date: 2025-06-27 Pat Name: Ernie Plasencia Department: Room: Gender: Male Career Guidance Counselor: : 1965 Requested By: Lynette Hood Order Number: [id number] Melina MD: Sera Benjamin M.D. Measurements Intervals [place] Rate: 66 P: 10 AL: 183 QRS: 29 QRSD: 97 T: 52 QT: 365 QTc: 383 Interpretive Statements SINUS RHYTHM Compared to ECG 06/27/2025 13:53:50 No significant changes Electronically Signed On 06-27-2025 17:49:00 CLAMP OPERATOR by Sera Benjamin M.D. [email or web address]
--- NOTE | 2025-06-27 14:35 | ED_ITS ---
HPI - Dizziness 2 General: Chief Complaint: Dizziness Stated Complaint: dizzy - nausea Time Seen by Provider: 06/27/25 14:09 Source: patient and EMS Mode of arrival: EMS Limitations: no limitations History of Present Illness: HPI Narrative: 59-year-old male called EMS states rakesh chandra nosebleed he states it lasted for roughly an hour. Has since resolved he states that after the nosebleed he had a funny feeling in his chest that was just a discomfort but denies any severe pain states that is resolved as well states he feels back at his baseline. He denies any shortness of breath denies any fevers it had some mild lightheadedness Related Data Home Medications ?Medication ?Instructions ?Recorded ?Confirmed B-complex with vitamin C 1 cap PO DAILY 06/15/2506/04 benfotiamine 150 mg capsule 150 mg PO BID 06/15/2507/28 Previous Rx's ?Medication ?Instructions ?Recorded metoprolol succinate 50 mg 50 mg PO DAILY #90 tabs tablet,extended release 24 hr apixaban 5 mg tablet (Eliquis) 5 mg PO BID #180 tabs 1 08/14/24 clonidine HCl 0.1 mg tablet 0.1 mg PO DAILY PRN hypert ension 06/25/25 #20 tabs Allergies Allergy/AdvReac Type Severity Reaction Status Date / Time Calcium Channel Blocking Allergy Unknown Verified 06/15/25 13:11 Agent Dilt PFS ED 2 PFSH: Medical History NSTEMI (non-ST elevated myocardial infarction) Mass of right kidney Noncompliance Acute hypercapnic respiratory failure Obstructive sleep apnea Attention deficit disorder Type 2 diabetes mellitus Sepsis Erectile disorder due to medical condition in male Cardiac left ventricular ejection fraction greater than or equal to 40 percent Actinic keratosis Seborrheic keratosis Pyruvate kinase (PK) deficiency anemia On continuous oral anticoagulation Recurrent cerebrovascular accidents (CVAs) Paroxysmal atrial fibrillation with rapid ventricular response Atrial flutter Acute kidney injury Macrocytic anemia Leukocytosis Febrile Leg pain, left Tick bite Basilar artery stenosis Vertebrobasilar ischemia Hyperlipidemia Gout Hx of ischemic vertebrobasilar artery brainstem stroke (2012) Hypertension Surgical History Post-splenectomy History of colonoscopy (2014) History of bone marrow biopsy (01/07/14) Bone marrow aspiration and biopsy at [facility] H/O knee surgery Left knee cap repair - JAVON Taylor - Dr. 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 Daughter Anesthesia complication Mother Cancer Lung Other Diabetes Hyperlipidemia Hypertension Stroke Denies family history of CAD (coronary artery disease) Clotting disorder Dementia Psychiatric illness Chronic kidney disease (CKD) Suicide Bleeding disorder Lung disease Social History Smoking and tobacco/nicotine status: never used tobacco/nicotine Alcohol intake: never Substance/Drug Use: never Additional social history: Patient wants full code as discussed today with Boogie Griffith MD on 04/30/2025. His next of kin is daughter Daija. 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 He also helps his own kids running errands etc. they are ages 37, 35 and 27. He states he is not as active after his stroke service: Yes Current occupation: [employer] Physical Exam 2 Const: COMMON NORMALS: no acute distress, patient oriented x3 and healthy appearing HENMT: COMMON NORMALS: normocephalic and atraumatic HEAD & SCALP: n ormocephalic and atraumatic Neck/C-Spine: COMMON NORMALS: full ROM and supple Chest: COMMONS NORMALS: normal inspection of the chest Resp: COMMON NORMALS: normal respiratory effort, No retractions, No use of accessory muscles and clear to auscultation bilaterally AUSCULTATION: clear to auscultation bilaterally Cardio: COMMON NORMALS: regular rate, regular rhythm and No murmurs present (Cardio) RATE: regular rate RHYTHM: regular rhythm Extremity: COMMON NORMALS: normal to inspection and full ROM Neuro: COMMON NORMALS: patient oriented x3, moves all extremities and no focal motor deficits Psych: COMMON NORMALS: mental status grossly normal, Normal thought process present and cooperative THOUGHT PROCESS: Normal thought process present Skin: COMMON NORMALS: no rashes or lesions noted and no wounds GENERAL SKIN EXAM: no rashes or lesions noted Course 2 Vital Signs: Vital signs: Vital Signs Temperature 97.8 F 06/27/25 13:48 Pulse Rate 62 06/27/25 17:01 Respiratory Rate 17 06/27/25 13:48 Blood Pressure 180/79 06/27/25 17:01 Pulse Oximetry 97 06/27/25 17:01 Oxygen Delivery Me thod Room Air 06/27/25 17:01 MDM - Dizziness Medical Decision Making Patient presented here with nosebleed that since stopped. He is also with history of hypertension. Had some he states some generalized weakness did check his labs chronic anemia and does not require transfusion no significant abnormalities on his labs troponin 2-hour showed no change. Did interpret EKG here showed normal sinus rhythm heart rate [address] elevation QRS 97 QTc 378. Did go over these findings with him he stable for discharge follow-up with PCP return if worsening he understands agrees to plan Medical Records I reviewed the patient's medical records. Lab Data I reviewed the patient's lab results. 06/27/25 14:28 06/27/25 14:28 Radiology Impressions Chest X-Ray 06/27/25 14:10 IMPRESSION: No acute findings. Laboratory Results WBC 10.65 10^3/uL (3.29-11.43) 06/27/25 14:28 RBC 2.13 10^6/uL (3.85-5.65) L 06/27/25 14:28 Hgb 7.30 g/dL (11.27-16.99) L 06/27/25 14:28 Hct 22.8 % (37-53) L 06/27/25 14:28 MCV 107.0 fl (82-101) H 06/27/25 14:28 MCH 34.3 pg (27-33) H 06/27/25 14:28 MCHC 32.0 g/dL (30-55) 06/27/25 14:28 RDW 15.6 % (12.1-15.1) H 06/27/25 14:28 Plt Count 427 10^3/cmm (157-399) H 06/27/25 14:28 MPV 11.5 fL (7.4-10.4) H 06/27/25 14:28 Neut % (Auto) 68.4 % 06/27/25 14:28 Lymph % (Auto) 15.0 % 06/27/25 14:28 [place] % (Auto) 13.0 % 06/27/25 14:28 Eos % (Auto) 2.0 % 06/27/25 14:28 Baso % (Auto) 0.8 % 06/27/25 14:28 Neut # (Auto) 7.29 10^3/uL (1.8-7.7) 06/27/25 14:28 Lymph # (Auto) 1.6 10^3/uL (0.8-4.8) 06/27/25 14:28 [place] # (Auto) 1.4 10^3/uL (0.2-0.9) H 06/27/25 14:28 Eos # (Auto) 0.2 10^3/uL (0.0-0.8) 06/27/25 14:28 Baso # (Auto) 0.1 10^3/uL (0.0-0.1) 06/27/25 14: Nucleated RBC % (auto) 0.2 % 06/27/25 14: Nucleated RBCs # 0.0 /100WBC 06/27/25 14:28 PT 14.80 SECONDS (12.1-14.9) 06/27/25 14:28 INR 1.08 (0.8-1.2) 06/27/25 14:28 Sodium 140 mmol/L (136-145) 06/27/25 14:28 Potassium 5.4 mmol/L (3.5-5.1) H 06/27/25 14:28 Chloride 109 mmol/L (98-107) H 06/27/25 14:28 Carbon Dioxide 22 mmol/L (22-29) 06/27/25 14:28 Anion Gap 14.4 (5-19) 06/27/25 14:28 BUN 48 mg/dL (6-20) H 06/27/25 14:28 Creatinine 1.7 mg/dL (0.7-1.2) H 06/27/25 14:28 GFR Calculation 41.8 mL/min (90-130) L 06/27/25 14:28 Glucose 155 mg/dL (65-115) H 06/27/25 14:28 Calculated Osmolality 306 mOsm/kg (285-295) H 06/27/25 14:28 Calcium 9.6 mg/dL (8.5-10.5) 06/27/25 14:28 Total Bilirubin 1.3 mg/dL (0.15-1.2) H 06/27/25 14:28 AST 13 U/L (0-40) 06/27/25 14:28 ALT 19 U/L (0-41) 06/27/25 14:28 Alkaline Phosphatase 84 U/L (40-130) 06/27/25 14:28 Troponin T Baseline 40 ng/L (0-15) H 06/27/25 14:28 Troponin T 120 Minute 36.12 ng/L (0-15) H 06/27/25 16:27 Delta Troponin T -3.88 ABS# (0-10) L 06/27/25 16:27 Total Protein 6.8 g/dL (6.6-8.7) 06/27/25 14:28 Albumin 4.2 g/dL (3.5-5.2) 06/27/25 14:28 Globulin 2.6 g/dL (1.3-4.6) 06/27/25 14:28 Lipase 75 U/L (13-60) H 06/27/25 14:28 All radiology interpretation(s) finalized by discharge EKG Data EKG 1: I personally reviewed and interpreted this EKG as follows: EKG interpretation date: 06/27/25 EKG interpretation time: 14:27 Interpretation: nsr hr [address] elevation qrs 97 qtc 378 EKG 2: I personally reviewed and interpreted this EKG as follows: EKG interpretation date: 06/27/25 EKG interpretation time: 16:14 Interpretation: nsr hr [address] elevation qrs 104 qtc 384 Discharge Plan Discharge Patient Disposition: Home Clinical Impression: Epistaxis Condition: Stable Prescriptions: No Action metoprolol succinate 50 mg tablet extended release 24 hr 50 mg PO DAILY Qty: 90 3RF Eliquis 5 mg tablet 5 mg PO BID Qty: 180 0RF B-complex with vitamin C Capsule 1 cap PO DAILY benfotiamine 150 mg capsule 150 mg PO BID clonidine HCl 0.1 mg tablet 0.1 mg PO DAILY PRN (Reason: hypertension) Qty: 20 0RF Rx Instructions: For Systolic >185 diastolic >100. If you are needing this more than once a day you need to follow with your primary care provider Discharge Orders: Discharge ED (Routine); Ordered 06/27/25 Ordered By: Lynette Hood Referrals: Yu Lee APN [Primary Care Provider, [facility]] - 4-7 days Discharge Diet: Advance as tolerated Discharge Activity: Resume usual activity Patient Instructions: Nosebleed (ED) Print Language: Azeri Coding Level of Care Code ED Desktop Technician for Shira Mckinley
[2025-06-27 14:47] LABS: Hematocrit 22.8 % (37-53); Hemoglobin 7.30 g/dL (11.27-16.99); Mean Corpuscular HGB Conc 32.0 g/dL (30-55); Mean Corpuscular Hemoglobin 34.3 pg (27-33); Mean Corpuscular Volume 107.0 fl (82-101); Nucleated Red Blood Cells % 0.2 %; Platelet Count 427 10^3/cmm (157-399); Red Blood Count 2.13 10^6/uL (3.85-5.65); White Blood Count 10.65 10^3/uL (3.29-11.43)
[2025-06-27 14:53] LABS: INR 1.08 (0.8-1.2); Prothrombin Time 14.80 SECONDS (12.1-14.9)
[2025-06-27 15:02] LABS: Alanine Aminotransferase 19 U/L (0-41); Albumin Level 4.2 g/dL (3.5-5.2); Alkaline Phosphatase 84 U/L (40-130); Anion Gap 14.4 (5-19); Aspartate Amino Transferase 13 U/L (0-40); Blood Urea Nitrogen 48 mg/dL (6-20); Calcium 9.6 mg/dL (8.5-10.5); Carbon Dioxide 22 mmol/L (22-29); Chloride 109 mmol/L (98-107); Globulin 2.6 g/dL (1.3-4.6); Glucose 155 mg/dL (65-115); Lipase 75 U/L (13-60); Osmolality Calculated 306 mOsm/kg (285-295); Potassium 5.4 mmol/L (3.5-5.1); Sodium 140 mmol/L (136-145); Total Protein 6.8 g/dL (6.6-8.7)
[2025-06-27 15:17] LABS: Troponin(5th) Baseline 40 ng/L (0-15)
--- NOTE | 2025-06-27 16:14 | ECG_ITS ---
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 Measurements Intervals [place] Rate: 62 P: 7 ME: 180 QRS: 91 QRSD: 104 T: 149 QT: 380 QTc: 386 Interpretive Statements SINUS RHYTHM BORDERLINE RIGHT AXIS DEVIATION [QRS AXIS > 90] Compared to ECG 06/27/2025 14:27:19 No significant changes Electronically Signed On 06-27-2025 17:49:57 CLEANER CARPET AND UPHOLSTERY by Sera Benjamin M.D. [email or web address] [id number]
[2025-06-27 17:02] LABS: Troponin 5 2HR 36.12 ng/L (0-15)
[2025-06-27 17:03] LABS: Troponin 5 2HR Delta -3.88 ABS# (0-10)
== END 2025-06-27 17:23 | disposition home or self-care (01) ==
PROVIDERS: Emergency Provider Emergency Medicine; PCP Nurse Practitioner Family
DX: R04.0 Epistaxis (principal); I10 Essential (primary) hypertension; D64.9 Anemia, unspecified; E11.9 Type 2 diabetes mellitus without complications; E78.5 Hyperlipidemia, unspecified; I25.2 Old myocardial infarction
CPT/HCPCS: 36415; 71045; 80053; 83690; 84484; 85025; 85610; 93005; 99285

== ENCOUNTER 2025-06-29 08:00 | Oncology outpatient (recurring) (ONCR) | payer OTHER, SELFPAY ==
[2025-06-15 13:08] LABS: Hematocrit 23.6 % (37-53); Hemoglobin 7.40 g/dL (11.27-16.99); Mean Corpuscular HGB Conc 31.4 g/dL (30-55); Mean Corpuscular Hemoglobin 33.0 pg (27-33); Mean Corpuscular Volume 105.4 fl (82-101); Nucleated Red Blood Cells % 0.4 %; Platelet Count 408 10^3/cmm (157-399); Red Blood Count 2.24 10^6/uL (3.85-5.65); White Blood Count 14.28 10^3/uL (3.29-11.43)
[2025-06-15 13:31] LABS: Alanine Aminotransferase 18 U/L (0-41); Albumin Level 4.3 g/dL (3.5-5.2); Alkaline Phosphatase 81 U/L (40-130); Anion Gap 15.3 (5-19); Aspartate Amino Transferase 14 U/L (0-40); Blood Urea Nitrogen 47 mg/dL (6-20); Calcium 9.3 mg/dL (8.5-10.5); Carbon Dioxide 21 mmol/L (22-29); Chloride 110 mmol/L (98-107); Globulin 3.1 g/dL (1.3-4.6); Glucose 126 mg/dL (65-115); Iron 99 ug/dL (59-158); Osmolality Calculated 306 mOsm/kg (285-295); Potassium 5.3 mmol/L (3.5-5.1); Sodium 141 mmol/L (136-145); Total Iron Binding Capacity 260 mcg/dl; Total Protein 7.4 g/dL (6.6-8.7); Unsaturated Iron Binding 161 ug/dL (112-347)
[2025-06-15 13:46] LABS: Vitamin B12 1268 pg/mL (232-1245)
[2025-06-15 13:47] LABS: Ferritin 2136 ng/mL (30-400)
[2025-06-29 08:32] LABS: Hematocrit 22.8 % (37-53); Hemoglobin 7.20 g/dL (11.27-16.99); Mean Corpuscular HGB Conc 31.6 g/dL (30-55); Mean Corpuscular Hemoglobin 33.2 pg (27-33); Mean Corpuscular Volume 105.1 fl (82-101); Nucleated Red Blood Cells % 0.2 %; Platelet Count 444 10^3/cmm (157-399); Red Blood Count 2.17 10^6/uL (3.85-5.65); White Blood Count 13.51 10^3/uL (3.29-11.43)
[2025-06-29 08:56] LABS: Alanine Aminotransferase 19 U/L (0-41); Albumin Level 4.3 g/dL (3.5-5.2); Alkaline Phosphatase 84 U/L (40-130); Anion Gap 15.9 (5-19); Aspartate Amino Transferase 14 U/L (0-40); Blood Urea Nitrogen 43 mg/dL (6-20); Calcium 9.5 mg/dL (8.5-10.5); Carbon Dioxide 22 mmol/L (22-29); Chloride 108 mmol/L (98-107); Globulin 3.0 g/dL (1.3-4.6); Glucose 123 mg/dL (65-115); Iron 132 ug/dL (59-158); Osmolality Calculated 304 mOsm/kg (285-295); Potassium 4.9 mmol/L (3.5-5.1); Sodium 141 mmol/L (136-145); Total Iron Binding Capacity 249 mcg/dl; Total Protein 7.3 g/dL (6.6-8.7); Unsaturated Iron Binding 117 ug/dL (112-347)
[2025-06-29 09:11] LABS: Vitamin B12 979 pg/mL (232-1245)
[2025-06-29 09:15] LABS: Ferritin 2037 ng/mL (30-400)
== END 2025-07-03 23:59 | disposition home or self-care (01) ==
PROVIDERS: PCP Nurse Practitioner Family; Visit Provider Internal Medicine
DX: D55.21 Anemia due to pyruvate kinase deficiency; Z53.9 Procedure and treatment not carried out, unspecified reason
CPT/HCPCS: 36415; 80053; 82607; 82668; 82728; 82746; 83010; 83540; 83550; 83615; 85025; 85045; 86880

== ENCOUNTER 2025-07-15 13:36 | Emergency (ER) | payer OTHER, SELFPAY ==
[2025-07-15 13:41] VITALS: BP 208/91; PULSE 74; RESP 16; TEMP 36.3; O2SAT 98
--- NOTE | 2025-07-15 13:42 | XR_ITS ---
WS: [id number] XR chest 1V portable [id number] REASON FOR EXAM: hypertension FINDINGS: The chest is unchanged compared to 06/27/2025. Moderate tortuosity and mild ectasia of the thoracic aorta. Elevation of the left hemidiaphragm with parenchymal scarring in the left lower lung. Cardiomegaly with mild central pulmonary venous congestion. No acute pulmonary parenchymal or pleural abnormality. XR/XR chest 1V portable [id number] IMPRESSION: Stable chest with cardiomegaly and no acute abnormality.
--- NOTE | 2025-07-15 13:52 | CT_ITS ---
WS: [id number] CT HEAD NONCONTRAST HISTORY: possible stroke TECHNIQUE: Contiguous axial imaging performed through the brain. Bone and soft tissue windows. Sagittal and coronal reformats reviewed. All CT scans at [facility] use at least one of these dose optimization techniques: automated exposure control; mA and/or kV adjustment per patient size (includes targeted exams where dose is matched to clinical indication); or iterative reconstruction. DLP: 1187.3 mGy COMPARISON: 12/11/2022 No acute intracranial hemorrhage, midline shift or mass effect. Small remote infarct in the RIGHT cerebellum is stable. There is an additional remote appearing infarct in the LEFT occipital lobe with volume loss. Remote but new since 12/11/2022. Mild cerebral atrophy and small vessel changes. No new infarct identified. Ventricles: Normal size with no hydrocephalus. No inferior displacement of the cerebellar tonsils. Paranasal sinuses: Small mucous retention cyst in the RIGHT sphenoid sinus. No air-fluid levels. Mastoid air cells: Well pneumatized. Calvarium and scalp: Skull is intact with no soft tissue edema or swelling. CT/CT head thrombolytic [id number] IMPRESSION: 1. No acute intracranial hemorrhage or edema. 2. Remote RIGHT cerebellar and LEFT occipital lobe infarcts. These infarcts ar e described on a prior MRI from 01/03/2025. 3. Mild atrophy and small vessel changes. Notified Rosie Angulo MD at 07/15/2025 2:09 PM.
--- NOTE | 2025-07-15 13:52 | W.ED.NEUROSD ---
HPI - Neuro Symptoms/Deficit General: Chief Complaint: Neuro Symptoms/Deficit Stated Complaint: high bp (via monitor) Time Seen by Provider: 07/15/25 13:48 History of Present Illness: 59-year-old man with a history of hypertension, chronic anticoagulation on Eliquis, coronary artery disease, obstructive sleep apnea, type 2 diabetes, obesity, atrial fibrillation, hyperlipidemia, and a recent stroke who presents the emergency room with hypertension. Initially he had described that he was having some vision changes and mild dizziness but when I speak to him he says this is from the old stroke this is not new today. He has been taking some clonidine recently and it helped some with his blood pressure but it did not help today so he felt he needed to come to the emergency room for evaluation. His blood pressure was over 200 systolic at home. Here is 208/91 initially. He has no focal motor deficits at this time. He is able to get up and transfer. No fevers. No cough. No chest pain. No abdominal pain. Related Data Home Medications ?Medication ?Instructions ?Recorded ?Confirmed B-complex with vitamin C 1 cap PO DAILY 06/15/25 07/15/25 benfotiamine 150 mg capsule 150 mg PO BID 06/15/25 07/15/25 losartan 25 mg tablet 25 mg PO DAILY 06/29/25 07/15/25 furosemide 40 mg tablet 40 mg PO DAILY PRN Weight Gain 07/15/25 07/15/25 Previous Rx's ?Medication ?Instructions ?Recorded metoprolol succinate 50 mg 50 mg PO DAILY #90 tabs 06/03/25 tablet,extended release 24 hr apixaban 5 mg tablet (Eliquis) 5 mg PO BID #180 tabs 06/14/25 clonidine HCl 0.1 mg tablet 0.1 mg PO DAILY PRN hypertension 06/25/25 #20 tabs hydralazine 25 mg tablet 25 mg PO TID #90 tabs 07/15/25 Allergies Allergy/AdvReac Type Severity Reaction Status Date / Time Calcium Channel Blocking Allergy Unknown Verified 06/29/25 08:46 Agent Dilt Review of Systems Narrative: Constitutional symptoms: Negative except as documented in HPI. Skin symptoms: Negative except as documented in HPI. Eye symptoms: Negative except as documented in HPI. ENMT symptoms: Negative except as documented in HPI. Respiratory symptoms: Negative except as documented in HPI. Cardiovascular symptoms: Negative except as documented in HPI. Gastrointestinal symptoms: Negative except as documented in HPI. Genitourinary symptoms: Negative except as documented in HPI. Musculoskeletal symptoms: Negative except as documented in HPI. Neurologic symptoms: Negative except as documented in HPI. Psychiatric symptoms: Negative except as documented in HPI. Endocrine symptoms: Negative except as documented in HPI. [facility] ED PFS: Medical History (Updated 07/15/25 @ 16:04 by Rosie Angulo MD) NSTEMI (non-ST elevated myocardial infarction) Mass of right kidney Noncompliance Acute hypercapnic respiratory failure Obstructive sleep apnea Attention deficit disorder Type 2 diabetes mellitus Sepsis Erectile disorder due to medical condition in male Cardiac left ventricular ejection fraction greater than or equal to 40 percent Actinic keratosis Seborrheic keratosis Pyruvate kinase (PK) deficiency anemia On continuous oral anticoagulation Recurrent cerebrovascular accidents (CVAs) Paroxysmal atrial fibrillation with rapid ventricular response Atrial flutter Acute kidney injury Macrocytic anemia Leukocytosis Febrile Leg pain, left Tick bite Basilar artery stenosis Vertebrobasilar ischemia Hyperlipidemia Gout Hx of ischemic vertebrobasilar artery brainstem stroke (2012) Hypertension Surgical History Post-splenectomy History of colonoscopy (2014) History of bone marrow biopsy (01/07/14) Bone marrow aspiration and biopsy at [facility] H/O knee surgery Left knee cap repair - JAVON Taylor - Dr. 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 Daughter Anesthesia complication Mother Cancer Lung Other Diabetes Hyperlipidemia Hypertension Stroke Denies family history of CAD (coronary artery disease) Clotting disorder Dementia Psychiatric illness Chronic kidney disease (CKD) Suicide Bleeding disorder Lung disease Social History Smoking and tobacco/nicotine status: never used tobacco/nicotine Alcohol intake: never Substance/Drug Use: never Additional social history: Patient wants full code as discussed today with Boogie Griffith MD on 04/30/2025. His next of kin is daughter Daija. 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 He also helps his own kids running errands etc. they are ages 37, 35 and 27. He states he is not as active after his stroke service: Yes Current occupation: [employer] Physical Exam Narrative: EXAM NARRATIVE: General: Alert, no acute distress. Skin: Warm, dry. Head: Normocephalic, atraumatic. Neck: Supple, trachea midline. Eye: Extraocular movements are intact. Ears, nose, mouth and throat: mucosa moist. Cardiovascular: Regular, Normal peripheral perfusion. Respiratory: Lungs are clear to auscultation, respirations are non-labored, breath sounds are equal, Symmetrical chest wall expansion. Gastrointestinal: Soft, Nontender, Non distended Musculoskeletal: Normal ROM, no deformity. Neurological: Alert and oriented, No focal neurological deficit observed. Psychiatric: Cooperative, appropriate mood & affect. Course Vital Signs: Vital signs: Vital Signs Temperature 97.3 F L 07/15/25 13:41 Pulse Rate 67 07/15/25 16:19 Respiratory Rate 16 07/15/25 16:19 Blood Pressure 175/84 07/15/25 16:19 Pulse Oximetry 96 07/15/25 16:19 Oxygen Delivery Me thod Room Air 07/15/25 15:54 MDM - Neuro Symptoms/Deficit Medical Decision Making Medical decision making Patient's reason for coming to the emergency room: Hypertension Social determinants: Patient is self-employed. I reviewed the patient's medical record. Was seen in oncology clinic recently for PKU deficiency. 59-year-old man with a history of hypertension, chronic anticoagulation on Eliquis, coronary artery disease, obstructive sleep apnea, type 2 diabetes, obesity, atrial fibrillation, hyperlipidemia, and a recent stroke I reviewed the patient's current home meds Patient is on Eliquis Alternate historians: None Differential diagnosis including but not limited to and based on the above HPI, review of systems and physical exam: Patient presents with hypertension: Essential hypertension. Stroke. acute coronary syndrome. kidney failure. congestive heart failure. anxiety. Orders placed to evaluate differential diagnosis based on the above differential, HPI and physical exam There was initially some concern for stroke. However patient is on Eliquis and has been taking it. Also the symptoms are from a previous stroke and is relatively unchanged. 1350: I examined the patient. Patient has no new focal deficits. NIH Stroke Scale/Score (NIHSS) from [employer] [email or web address] on 07/15/2025 All calculations should be rechecked by clinician prior to use RESULT SUMMARY: 0 points NIH Stroke Scale INPUTS: 1A: Level of consciousness ?> 0 = Alert; keenly responsive 1B: Ask month and age ?> 0 = Both questions right 1C: 'Blink eyes' & 'squeeze hands' ?> 0 = Performs both tasks 2: Horizontal extraocular movements ?> 0 = Normal 3: Visual doe ?> 0 = No visual loss 4: Facial palsy ?> 0 = Normal symmetry 5A: Left arm motor drift ?> 0 = No drift for 10 seconds 5B: Right arm motor drift ?> 0 = No drift for 10 seconds 6A: Left leg motor drift ?> 0 = No drift for 5 seconds 6B: Right leg motor drift ?> 0 = No drift for 5 seconds 7: Limb Ataxia ?> 0 = No ataxia 8: Sensation ?> 0 = Normal; no sensory loss 9: Language/aphasia ?> 0 = Normal; no aphasia 10: Dysarthria ?> 0 = Normal 11: Extinction/inattention ?> 0 = No abnormality CT head: Remote right cerebellar and left occipital lobe infarcts. These were here previously. Some mild atrophy. No acute intracranial process. No intracranial hemorrhage, no evidence of infarct. No evidence of acute fracture. This was reviewed and interpreted by myself the emergency room physician. I also reviewed the radiology report. Chest x-ray: Stable cardiomegaly. No acute process. No infiltrate. No pneumothorax. This was reviewed and interpreted by myself the emergency room physician. I also reviewed the radiology report. EKG: Time 1412. Rate 68. Normal sinus rhythm, nonspecific ST changes, no ectopy, normal OK & QRS intervals, This was reviewed and interpreted by myself the ER physician at 1416 Repeat EKG: Time 1457. Rate 67. Normal sinus rhythm, nonspecific ST change, no ectopy, normal OK & QRS intervals, This was reviewed and interpreted by myself the ER physician at 1502. No acute changes from EKG done previously today in the emergency room. Lab Review: Laboratory results were reviewed and interpreted by myself the emergency room physician. Mild leukocytosis which is chronic. Mild chronic renal insufficiency with a BUN/creatinine of 31 and 1.5. This is near his baseline. Stable anemia with a hemoglobin of 9. Troponin is elevated at around 50 but the delta is negative with a repeat of 48 Assessment of risk: Level of risk: Moderate risk patient. Multiple comorbidities Hospitalization considerations: No indication for hospitalization today. Reexamination: Patient remained stable. No increased work of breathing. No altered mental status. No focal motor deficits. Assessment and plan: Accelerated hypertension - Discharged home - Discussed plan with patient. Answered any questions. - Evaluation and treatment of this problem were appropriate in the emergency setting. Lab Data 07/15/25 14:10 07/15/25 14:10 Radiology Impressions Chest X-Ray 07/15/25 13:42 IMPRESSION: Stable chest with cardiomegaly and no acute abnormality. Head CT 07/15/25 13:52 IMPRESSION: 1. No acute intracranial hemorrhage or edema. 2. Remote RIGHT cerebellar and LEFT occipital lobe infarcts. These infarcts are described on a prior MRI from 01/03/2025. 3. Mild atrophy and small vessel changes. Notified Rosie Angulo MD at 07/15/2025 2:09 PM. Laboratory Results WBC 13.55 10^3/uL (3.29-11.43) H 07/15/25 14:10 RBC 2.70 10^6/uL (3.85-5.65) L 07/15/25 14:10 Hgb 9.00 g/dL (11.27-16.99) L 07/15/25 14:10 Hct 27.4 % (37-53) L 07/15/25 14:10 MCV 101.5 fl (82-101) H 07/15/25 14:10 MCH 33.3 pg (27-33) H 07/15/25 14:10 MCHC 32.8 g/dL (30-55) 07/15/25 14:10 RDW 18.7 % (12.1-15.1) H 07/15/25 14:10 Plt Count 393 10^3/cmm (157-399) 07/15/25 14:10 MPV 10.8 fL (7.4-10.4) H 07/15/25 14:10 Neut % (Auto) 69.4 % 07/15/25 14:10 Lymph % (Auto) 16.5 % 07/15/25 14:10 Taylor % (Auto) 10.9 % 07/15/25 14:10 Eos % (Auto) 1.8 % 07/15/25 14:10 Baso % (Auto) 0.8 % 07/15/25 14:10 Neut # (Auto) 9.40 10^3/uL (1.8-7.7) H 07/15/25 14:10 Lymph # (Auto) 2.2 10^3/uL (0.8-4.8) 07/15/25 14:10 Taylor # (Auto) 1.5 10^3/uL (0.2-0.9) H 07/15/25 14:10 Eos # (Auto) 0.2 10^3/uL (0.0-0.8) 07/15/25 14:10 Baso # (Auto) 0.1 10^3/uL (0.0-0.1) 07/15/25 14:10 Nucleated RBC % (auto) 0 % 07/15/25 14:10 Nucleated RBCs # 0.0 /100WBC 07/15/25 14:10 Sodium 138 mmol/L (136-145) 07/15/25 14:10 Potassium 5.2 mmol/L (3.5-5.1) H 07/15/25 14:10 Chloride 107 mmol/L (98-107) 07/15/25 14:10 Carbon Dioxide 21 mmol/L (22-29) L 07/15/25 14:10 Anion Gap 15.2 (5-19) 07/15/25 14:10 BUN 31 mg/dL (6-20) H 07/15/25 14:10 Creatinine 1.5 mg/dL (0.7-1.2) H 07/15/25 14:10 GFR Calculation 48.2 mL/min (90-130) L 07/15/25 14:10 Glucose 169 mg/dL (65-115) H 07/15/25 14:10 POC Glucose 158 mg/dL (70-110) H 07/15/25 14:00 Calculated Osmolality 296 mOsm/kg (285-295) H 07/15/25 14:10 Calcium 9.9 mg/dL (8.5-10.5) 07/15/25 14:10 Total Bilirubin 1.7 mg/dL (0.15-1.2) H 07/15/25 14:10 AST 19 U/L (0-40) 07/15/25 14:10 ALT 16 U/L (0-41) 07/15/25 14:10 Alkaline Phosphatase 86 U/L (40-130) 07/15/25 14:10 Troponin T Baseline 55 ng/L (0-15) H 07/15/25 14:10 Troponin T 60 Minute 48.24 ng/L (0-15) H 07/15/25 15:31 Delta Troponin T -6.76 ABS# (0-10) L 07/15/25 15:31 Total Protein 6.8 g/dL (6.6-8.7) 07/15/25 14:10 Albumin 4.4 g/dL (3.5-5.2) 07/15/25 14:10 Globulin 2.4 g/dL (1.3-4.6) 07/15/25 14:10 All radiology interpretation(s) finalized by discharge Discharge Plan Discharge Patient Disposition: Home Clinical Impression: Accelerated hypertension Condition: Stable Prescriptions: New hydralazine 25 mg tablet 25 mg PO TID Qty: 90 0RF No Action losartan 25 mg tablet 25 mg PO DAILY metoprolol succinate 50 mg tablet extended release 24 hr 50 mg PO DAILY Qty: 90 3RF Eliquis 5 mg tablet 5 mg PO BID Qty: 180 0RF B-complex with vitamin C Capsule 1 cap PO DAILY benfotiamine 150 mg capsule 150 mg PO BID clonidine HCl 0.1 mg tablet 0.1 mg PO DAILY PRN (Reason: hypertension) Qty: 20 0RF Rx Instructions: For Systolic >185 diastolic >100. If you are needing this more than once a day you need to follow with your primary care provider furosemide 40 mg tablet 40 mg PO DAILY PRN (Reason: Weight Gain) Discharge Orders: Discharge ED (Routine); Ordered 07/15/25 Ordered By: Rosie Angulo Referrals: Yu Lee APN [Primary Care Provider, Family Practice] Discharge Diet: Usual diet Discharge Activity: Increase activity as tolerated Patient Instructions: Hypertension (ED), Opioid Safety, Pain Management, Patient Portal & Alexys Instructions Activity Restrictions/Additional Instructions: Thank you for choosing [facility] for your healthcare needs today. You have been screened and evaluated and felt safe for discharge. Health conditions do change or evolve sometimes and as such it is important that you follow up with your Primary Doctor to be re checked, 3-5 days is a general good time frame for follow up. You are always welcome to return to the ED for re assessment if your symptoms are worsening or you have new concerns. (Please note that included in your discharge packet is information concerning opioid safety and pain management. This information is given to all patients who are discharged from the ER regardless of their discharge diagnosis or the medicines they usually take or are prescribed.) Print Language: Armenian Coding Level of Care Code ED Health Program Manager for Shira Mckinley
[2025-07-15 14:09] VITALS: BP 209/98; PULSE 73; RESP 16; O2SAT 96
--- NOTE | 2025-07-15 14:12 | ECG_ITS ---
[facility] Date: 2025-07[facility]15 Pat Name: Ernie Plasencia Department: Room: Gender: Male Director Of Dietary: : 1965 Requested By: Rosie Gutierrez Order Number: [id number] Reading MD: SAM VOGT Measurements Intervals [place] Rate: 68 P: 60 ND: 179 QRS: 60 QRSD: 98 T: 47 QT: 367 QTc: 393 Interpretive Statements SINUS RHYTHM NONSPECIFIC T-WAVE ABNORMALITY Compared to ECG 06/27/2025 16:14:33 T-wave abnormality now present Electronically Signed On 07-15-2025 18:29:17 DRILL SETUP OPERATOR by SAM VOGT [email or web address]
[2025-07-15 14:19] LABS: Hematocrit 27.4 % (37-53); Hemoglobin 9.00 g/dL (11.27-16.99); Mean Corpuscular HGB Conc 32.8 g/dL (30-55); Mean Corpuscular Hemoglobin 33.3 pg (27-33); Mean Corpuscular Volume 101.5 fl (82-101); Nucleated Red Blood Cells % 0 %; Platelet Count 393 10^3/cmm (157-399); Red Blood Count 2.70 10^6/uL (3.85-5.65); White Blood Count 13.55 10^3/uL (3.29-11.43)
--- NOTE | 2025-07-15 14:42 | PC.PHAR ---
Pt has atorvastatin 80mg po qhs last fill 06/08/25 30ds-pt states he does not take.
[2025-07-15 14:43] LABS: Alanine Aminotransferase 16 U/L (0-41); Albumin Level 4.4 g/dL (3.5-5.2); Alkaline Phosphatase 86 U/L (40-130); Aspartate Amino Transferase 19 U/L (0-40); Blood Urea Nitrogen 31 mg/dL (6-20); Calcium 9.9 mg/dL (8.5-10.5); Carbon Dioxide 21 mmol/L (22-29); Chloride 107 mmol/L (98-107); Globulin 2.4 g/dL (1.3-4.6); Glucose 169 mg/dL (65-115); Osmolality Calculated 296 mOsm/kg (285-295); Sodium 138 mmol/L (136-145); Total Protein 6.8 g/dL (6.6-8.7); Troponin(5th) Baseline 55 ng/L (0-15)
[2025-07-15 14:48] VITALS: BP 181/93; PULSE 64; RESP 16; O2SAT 94
[2025-07-15 14:48] LABS: Anion Gap 15.2 (5-19); Potassium 5.2 mmol/L (3.5-5.1)
--- NOTE | 2025-07-15 14:57 | ECG_ITS ---
[facility]25-07[facility]15 Pat Name: Ernie Plasencia Department: Room: Gender: Male Construction Trench Digger: : 1965 Requested By: Rosie Gutierrez Order Number: [id number] Melina MD: SAM VOGT Measurements Intervals [place] Rate: 67 P: 66 OK: 173 QRS: 60 QRSD: 101 T: 52 QT: 368 QTc: 390 Interpretive Statements SINUS RHYTHM LEFT VENTRICULAR HYPERTROPHY AND ST-T CHANGE [VOLTAGE CRITERIA PLUS ST/T ABNORMALITY] Compared to ECG 07/15/2025 14:12:37 Left ventricular hypertrophy now present ST (T wave) deviation now present T-wave abnormality no longer present Electronically Signed On 07-15-2025 18:34:13 AVIATION SAFETY EQUIPMENT TECHNICIAN by SAM VOGT [id number]
[2025-07-15 15:54] VITALS: BP 170/86; PULSE 65; RESP 16; O2SAT 95
[2025-07-15 16:19] VITALS: BP 175/84; PULSE 67; RESP 16; O2SAT 96
== END 2025-07-15 16:18 | disposition home or self-care (01) ==
PROVIDERS: Emergency Provider Emergency Medicine; PCP Nurse Practitioner Family
DX: I10 Essential (primary) hypertension (principal); Z79.01 Long term (current) use of anticoagulants; E78.5 Hyperlipidemia, unspecified; Z86.73 Personal history of transient ischemic attack (TIA), and cerebral infarction without residual deficits; E11.9 Type 2 diabetes mellitus without complications; I25.10 Atherosclerotic heart disease of native coronary artery without angina pectoris
CPT/HCPCS: 36415; 36416; 70450; 71045; 80053; 82962; 84484; 85025; 93005; 99285

== ENCOUNTER 2025-07-21 10:24 | Oncology outpatient (recurring) (ONCR) | payer OTHER, SELFPAY ==
[2025-07-13 14:48] LABS: Hematocrit 22.9 % (37-53); Hemoglobin 7.20 g/dL (11.27-16.99); Mean Corpuscular HGB Conc 31.4 g/dL (30-55); Mean Corpuscular Hemoglobin 33.5 pg (27-33); Mean Corpuscular Volume 106.5 fl (82-101); Nucleated Red Blood Cells % 0.1 %; Platelet Count 417 10^3/cmm (157-399); Red Blood Count 2.15 10^6/uL (3.85-5.65); White Blood Count 14.93 10^3/uL (3.29-11.43)
[2025-07-13 15:08] LABS: Alanine Aminotransferase 15 U/L (0-41); Albumin Level 4.1 g/dL (3.5-5.2); Alkaline Phosphatase 84 U/L (40-130); Anion Gap 15.1 (5-19); Aspartate Amino Transferase 13 U/L (0-40); Blood Urea Nitrogen 36 mg/dL (6-20); Calcium 9.1 mg/dL (8.5-10.5); Carbon Dioxide 21 mmol/L (22-29); Chloride 107 mmol/L (98-107); Globulin 2.9 g/dL (1.3-4.6); Glucose 142 mg/dL (65-115); Iron 77 ug/dL (59-158); Osmolality Calculated 297 mOsm/kg (285-295); Potassium 5.1 mmol/L (3.5-5.1); Sodium 138 mmol/L (136-145); Total Iron Binding Capacity 254 mcg/dl; Total Protein 7.0 g/dL (6.6-8.7); Unsaturated Iron Binding 177 ug/dL (112-347)
[2025-07-13 15:19] LABS: Ferritin 1778 ng/mL (30-400)
[2025-07-13 15:23] LABS: Vitamin B12 1030 pg/mL (232-1245)
[2025-07-14] VITALS (10 sets, daily range): BP systolic 161–176; BP diastolic 79–100; PULSE 64–68; RESP 16–17; TEMP 36.4–36.8; O2SAT 94–97
[2025-07-20 13:10] LABS: Hematocrit 25.2 % (37-53); Hemoglobin 7.90 g/dL (11.27-16.99); Mean Corpuscular HGB Conc 31.3 g/dL (30-55); Mean Corpuscular Hemoglobin 31.9 pg (27-33); Mean Corpuscular Volume 101.6 fl (82-101); Nucleated Red Blood Cells % 0 %; Platelet Count 435 10^3/cmm (157-399); Red Blood Count 2.48 10^6/uL (3.85-5.65); White Blood Count 12.66 10^3/uL (3.29-11.43)
[2025-07-20 13:30] LABS: Alanine Aminotransferase 19 U/L (0-41); Albumin Level 4.1 g/dL (3.5-5.2); Alkaline Phosphatase 80 U/L (40-130); Anion Gap 15.8 (5-19); Aspartate Amino Transferase 17 U/L (0-40); Blood Urea Nitrogen 43 mg/dL (6-20); Calcium 9.1 mg/dL (8.5-10.5); Carbon Dioxide 20 mmol/L (22-29); Chloride 108 mmol/L (98-107); Globulin 2.7 g/dL (1.3-4.6); Glucose 130 mg/dL (65-115); Iron 56 ug/dL (59-158); Osmolality Calculated 301 mOsm/kg (285-295); Potassium 4.8 mmol/L (3.5-5.1); Sodium 139 mmol/L (136-145); Total Iron Binding Capacity 251 mcg/dl; Total Protein 6.8 g/dL (6.6-8.7); Unsaturated Iron Binding 195 ug/dL (112-347)
[2025-07-20 13:44] LABS: Vitamin B12 956 pg/mL (232-1245)
[2025-07-20 13:49] LABS: Ferritin 2050 ng/mL (30-400)
--- NOTE | 2025-07-21 10:47 | PC.NURSE ---
patient was very anxious about receiving the Retacrit 10,000 unit subq injection today. Patient had previously refused the shot, however after visiting with Dr Meier at his scheduled Dr appointment yesterday, he agreed the shot would be his best course of therapy. Patient again voiced apprehension, he was given the opportunity to see Dr Meier or speak with pharmacist, Peggy Maldonado to go over his concerns and answer any questions he still had. Patient refused, stated he wanted the shot. Patient was given the injection as ordered and monitored for 20 minutes with vitals q 10 minutes. T 97.7 p 68 R 16 B\P 189/83 95% T 97.7 P68 R 16 b p 184/84 95%. Patient verbalized feeling better about the treatment, he was concerned that he was going to have a reaction to the injection. Patient states he will be back in 2 weeks.
[2025-07-21 11:05] VITALS: BP 184/84; PULSE 84; RESP 16; TEMP 36.5; O2SAT 95
== END 2025-08-03 23:59 | disposition home or self-care (01) ==
PROVIDERS: PCP Nurse Practitioner Family; Visit Provider Internal Medicine
DX: Z53.9 Procedure and treatment not carried out, unspecified reason; D64.9 Anemia, unspecified
CPT/HCPCS: 36415; 36430; 80053; 82607; 82728; 82746; 83010; 83540; 83550; 83615; 85025; 85045; 86850; 86880; 86900; 86920; 96372; J7050; J9999; P9016; Q5106

== ENCOUNTER 2025-07-31 12:59 | Emergency (ER) | payer OTHER, SELFPAY ==
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
--- OUTSIDE RECORDS SUMMARY | 2024-11-02 05:00 | XMS_ITS ---
Author Organization [facility] Address [address] [place] [address] Care Team Providers Care Technical System Analyst Name Role Phone Yu Lee Primary Care Provider [phone] YU LEE Unavailable Unavailable REASON FOR VISIT HFU OZH discharge 10/25 IND Left foot Encounters Encounter Location Date Provider Diagnosis [facility] Office [address] [place] [phone] 11/02/2024 Yu Lee Plan Of Treatment No Information Progress Notes * GARCIAErnieDOB: 7 (60 yo M)Acc No.[id number]:11/02/2024 Patient: Ernie Lechuga Provider: Brenda Lee APRN :1965 A ge:59 Y S ex:Male Date:11/02/2024 Address:[address] [id number] Subjective: * Chief Complaints: * H FU OZH discharge 10/25 IND Left foot Billing Information: * Procedure Codes: * Electronic signature of Gabrielle Lee APN on 07/31/2025 at 01:06 PM ADVERTISING SALES AGENT Sign off status: Pending * Provider: Brenda Lee APRN Date: 0 11/02/2024 Generated for Sasha donaldson/Elvin/Hadleyitting on: 10/01/2024 01:06 PM ADVERTISING SALES AGENT
[2025-07-31] VITALS (17 sets, daily range): BP systolic 114–152; BP diastolic 55–99; PULSE 78–138; RESP 16; TEMP 36.7; O2SAT 92–98; BMI 33.5
--- NOTE | 2025-07-31 13:05 | ECG_ITS ---
[facility] Test Date: 2025-07-31 Pat Name: Ernie Plasencia Department: Room: Gender: Male Heel Reducer: : 1965 Requested By: Lynette Hood Order Number: [id number] Melina MD: SAM VOGT Measurements Intervals [place] Rate: 139 P: 0 GA: 0 QRS: 28 QRSD: 85 T: 150 QT: 265 QTc: 404 Interpretive Statements ATRIAL FLUTTER/TACHYCARDIA WITH RAPID VENTRICULAR RESPONSE ST DEVIATION AND MODERATE T-WAVE ABNORMALITY, CONSIDER LATERAL ISCHEMIA [-0.1+ mV T-WAVE IN I/aVL/V5/V6] ST DEVIATION AND MODERATE T-WAVE ABNORMALITY, CONSIDER INFERIOR ISCHEMIA [-0.1+ mV T-WAVE IN II/aVF] Compared to ECG 07/15/2025 14:57:05 T-wave abnormality now present Possible ischemia now present Sinus rhythm no longer present Left ventricular hypertrophy no longer present ST (T wave) deviation no longer present Electronically Signed On 07-31-2025 22:52:43 TROMBONE SLIDE ASSEMBLER by SAM VOGT [id number]
--- OUTSIDE RECORDS SUMMARY | 2025-07-31 13:07 | XMS_ITS | Patient Health Record ---
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 Stress is when someone feels tense, nervous, anxious, or can't sleep at night because their mind is troubled Not at all In the past year have you sp ent more than 2 nights in a row in a penitentiary, fpc, nursing home center, or juvenile correctional facility? No Are [...] US: no Cherry Chu 10/09/2022 03:39:57 PM LINES TENDER > , No Alcohol: no Amber Scott any 10/09/2022 03:39:40 PM LINES TENDER > , never Smoking: no Sonia Amber any 10/09/2022 03:39:37 PM LINES TENDER > , NO Sexually active: Freida Scotty 10/09/2022 03:40:00 PM LINES TENDER > Recreational drug use: no Sonia Cherry 10/09/2022 03:39:38 PM LINES TENDER > , Denies Exercise: no Amber Scott any 10/09/2022 03:39:56 PM LINES TENDER > , No Caffeine: yes Sonia Amber any 10/09/2022 03:39:54 PM LINES TENDER > , Yes Advance Directive no Sonia, Linda luna 10/09/2022 03:40:06 PM LINES TENDER > , None Herbal & OTC medications no Dennis stringer Cherry 10/09/2022 03:40:02 PM LINES TENDER > , none Depression Screening Completed: no Sonia Cherry 10/09/2022 03:56:02 PM LINES TENDER > , PHQ2 Pre-Visit Planning Completed: yes Sudeep olivia Cherry 10/09/2022 03:39:34 PM LINES TENDER > , Same Day Appointment Diabetic testing: no Linda Scott 10/09/2022 03:40:08 PM LINES TENDER > , Not diabetic Plan Of Treatment No Information Insurance Providers Payer Name Payer Address Payer Phone Subscriber Number Group Number Insured Name Patient Relationship to Insured Coverage Start Date Coverage End Date [employer] MEDICARE ADVANTAGE CHOICE [address] [address] [place] [address] [id number] TERRY GARCIA Self - patient is the insured Medications Administered Medication Instructions Date of Administration Dosage Notes cefTRIAXone Sodium 10/09/2022 1 g pt tolerated shot well [facility] [id number] Medical (General) History Medical History History ICD Code stroke Hospitalization History Reason Date(Month/Year) STROKE 111 YEARS AGO
--- OUTSIDE RECORDS SUMMARY | 2025-07-31 13:07 | XMS_ITS | Patient Health Record ---
Author Organization [facility] Address [address] [place] [address] Care Team Providers Care Aged Or Disabled Carer Name Role Phone Yu Lee Primary Care Provider UnavailZE Earl Unavailable [phone] KAT MUELLER Unavailable [phone] PANDA HUIZAR Unavailable [phone] Allergies Allergen (clinical drug ingredient) Drug/Non Drug [...] Glucose 1+ Bilirubin - Ketones - Specific [place] 1.015 Occult Blood - pH 6.0 Urine Protein trace Urobilinogen,Semi-Qn - Nitrite, Urine - WBC Esterase - Urinalysis Gross Exam - Reason For Referral No Information Social History Tobacco Use: Social History Observation Description Date Details (start date - stop date) Never Smoker NA - NA Social History Tobacco Use: Social Info Question Answer Notes Tobacco Control (Standard) Tobacco use: Nonsmoker Problems Problem Type SNOMED Code ICD Code Onset Dates Problem Status W/U Status Risk Notes Problem Disorder of kidney and/or ureter (902877217) Right renal mass (N28.89) Active confirmed Vital Signs Height-cm 180.34 cm 10/08/2024 Weight-kg 108.86 kg 10/08/2024 Height 71 in 10/08/2024 Weight 240 lbs 10/08/2024 BMI 33.47 kg/m2 10/08/2024 Encounters Encounter Location Date Provider Diagnosis [facility] [address] [place] [address] 10/08/2024 PANDA HUIZAR Right renal mass N28.89 [facility] [address] [place] [address] 09/27/[address] [facility] [address] [place] [address] 10/11/2024 PANDA HUIZAR [facility] [address] [place] [address] 10/21/2024 ZE MAHMOOD Assessments Encounter Date Diagnosis [...] & Pelvis W & [place] [address] 10/08/2024 Blood Urea Nitrogen (BUN) 10/08/2024 Creatinine Serum 10/08/2024 Insurance Providers Payer Name Payer Address Payer Phone Subscriber Number Group Number Insured Name Patient Relationship to Insured Coverage Start Date Coverage End Date Luis PINEDA [id number] JAVON JEREZ [id number] Erinn Ernie Self - patient is the insured Medical (General) History Medical History History ICD Code Renal mass Hypertension Hx of stroke Surgical History Surgery Date(Month/Year) splenectomy left hip replacement left knee repair Hospitalization History Reason Date(Month/Year) Heart issues stroke
--- OUTSIDE RECORDS SUMMARY | 2025-07-31 13:07 | XMS_ITS | Clinical Summary ---
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 Gender Identity Not on file Sexual Orientation [...] (#1) 2025 Medical Devices Implanted Type Area Teacher Counselor Device Identifier Shelf Expiration Date Model / Serial / Lot Cup Pinn Sctr Series 56mm 1217-22-056 - [id number] Implanted:Qty: 1 on 02/07/2017 by Jeremy Coyne MD Hip Left: Hip [employer] 12/01/2026 6 / / [id number] Head Fem Art/Carlos Cer Sz36 1365-36-320 - [id number] Implanted:Qty: 1 on 02/07/2017 by Jeremy Coyne MD Hip Left: Hip [employer] REBA 11/01/2021 1365-36- 32 0 / / [id number] Hole Eliminator [place] 1246-03-000 - [id number] Implanted:Qty: 1 on 02/07/2017 by Jeremy Coyne MD Hip Left: Hip [employer] 09/03/2026 0 / / [id number] Liner Pinn Altrx Poly 1221-36-056 - [id number] Implanted:Qty: 1 on 02/07/2017 by Jeremy Coyne MD Hip Left: Hip [employer] 11/01/2021 6 / / [id number] Stem Fem Actis Hi Colr Sz5 1010-12-050 - [id number] Implanted:Qty: 1 on 02/07/2017 by Jeremy Coyne MD Hip Left: Hip [employer] 11/01/2025 1010-07-08 0 / / [id number] Procedures Procedure Name Priority Date/Time Associated Diagnosis Comments HEMOGLOBIN A1C Routine 01/10/2017 11:10 AM CDT from Last 3 Months or Most Recently Relevant to Health Maintenance Results * (ABNORMAL) HEMOGLOBIN A1C (01/10/2017 11:10 AM CDT) HEMOGLOBIN A1C 6.3(H) 4.0 - 6.0 % 01/10/2017 11:53 AM CDT [facility] EST. AVG GLUCOSE, A1C 134 mg/dL 01/10/2017 11:53 AM CDT [facility] Blood Collection / Unknown 01/10/2017 11:10 AM CDT 01/10/2017 11:37 AM CDT us Vipin Reddy MD CHEMISTRY ORDERABLES Final Resu lt [facility] #[id number] [address] [address] [facility] #[id number] [address] [place] [address] from Last 3 Months or Most Recently Relevant to Health Maintenance Insurance [facility] OPTIONS PPO [phone] CHOICE PLUS * Guarantor: ERNIE GARCIA Account Type Relation to Patient Date of Phone Billing Address Personal/Family [address] [address] Care Teams Clinical Services Professional Relationship Specialty Start Date End Date Umair Milton MD [address] [address] [place] [id number] 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
--- OUTSIDE RECORDS SUMMARY | 2025-07-31 13:07 | XMS_ITS | Clinical Summary ---
Author Organization [facility] Address [address] [place] [address] Phone Care Team Providers Care Pharmacy Technologist Name Role Phone Umair Milton MD Primary Care Provider [phone] Allergies No known active allergies Medications allopurinol (ZYLOPRIM) 300 mg tablet Take 300 mg by mouth 2 times daily . 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 Active niacin (NIACOR) 50 mg Tablet Take [...] 36.9 C (98.4 F) 09/18/2017 1:21 PM ACCOUNT SUPPORT REP Respiratory Rate 20 07/10/2017 1:10 PM ACCOUNT SUPPORT REP Oxygen Saturation 97% 07/10/2017 1:10 PM ACCOUNT SUPPORT REP Inhaled Oxygen Concentration - - Weight 111.1 [...] (#1) 2025 Medical Devices Implanted Type Area Java Application Developer Device Identifier Shelf Expiration Date Model / Serial / Lot Cup Pinn Sctr Series 56mm 1217-22-056 - [id number] Implanted:Qty: 1 on 02/07/2017 by Jeremy Coyne MD at [facility] Hip Left: Hip [employer] 12/01/2026 6 / / [id number] Hole Eliminator [place] 1246-03-000 - [id number] Implanted:Qty: 1 on 02/07/2017 by Jeremy Coyne MD at [facility] Hip Left: Hip [employer] 09/03/2026 0 / / [id number] Stem Fem Actis Hi Colr Sz5 1010-12-050 - [id number] Implanted:Qty: 1 on 02/07/2017 by Jeremy Coyne MD at [facility] Hip Left: Hip [employer] 11/01/2025 1010-07-08 0 / / [id number] Head Fem Art/Carlos Cer Sz36 1365-36-320 - [id number] Implanted:Qty: 1 on 02/07/2017 by Jeremy Coyne MD at [facility] Hip Left: Hip [employer]BA 11/01/2021 1365-36-3 2 0 / / [id number] Liner Pinn Altrx Poly 1221-36-056 - [id number] Implanted:Qty: 1 on 02/07/2017 by Jeremy Coyne MD at [facility] Hip Left: Hip [employer] 11/01/2021 6 / / [id number] Procedures Procedure Name Priority Date/Time Associated Diagnosis Comments HEMOGLOBIN A1C Routine 01/10/2017 11:10 AM CDT from Last 3 Months or Most Recently Relevant to Health Maintenance Results * (ABNORMAL) HEMOGLOBIN A1C (01/10/2017 11:10 AM CDT) HEMOGLOBIN A1C 6.3(H) 4.0 - 6.0 % 01/10/2017 11:53 AM CDT [facility] EST. AVG GLUCOSE, A1C 134 mg/dL 01/10/2017 11:53 AM CDT [facility] Blood Collection / Unknown 01/10/2017 11:10 AM CDT 01/10/2017 11:37 AM CDT us Vipin Reddy MD CHEMISTRY ORDERABLES Final Resu lt [facility] CLIA #[id number] [address] [place], [place] [address] from Last 3 Months or Most Recently Relevant to Health Maintenance Insurance [employer] LOCAL Advance Directives For more information, please contact: [phone] * Full Code (Latest Code Status on [...] 11:47 AM 02/08/2017 3:55 PM Care Teams Pharmacy Technologist Relationship Specialty Start Date End Date Umair Milton MD [address] [place] [address] [place] [id number] PCP - General Patrol Guard 02/07/17
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
--- OUTSIDE RECORDS SUMMARY | 2025-07-31 13:07 | XMS_ITS | Data Portability ---
Author Organization KATHERIN Milton, Telemedicine Address [address] [address] Assessment No assessment recorded. Plan of Treatment [...] ist referral 2020 021 Jenifer Thompson MD, [facility] Rheumatology, [address], [address], 12:50:02 Procedures None recorded. Surgeries None recorded. Imaging XR, chest, 2 view 2020 021 [email or web address] Umair Milton MD, [address], [address], [place], [address], 15:28:15 Medication Orders Trulicity 1.5 mg/0.5 mL subcutaneou s pen injector 2020 [facility] #00950, [address], [place], [place], [id number], 10:53:04 losartan 50 mg tablet 2020 [facility] #24959, [address], [place], [place], [id number], 11:10:30 ketorolac 60 mg/2 mL intramuscul ar solution 2020 021 [email or web address] Not available 10:51:16 naproxen 500 mg tablet 2020 021 [facility] #81506, [address], [place], [place], [id number], 16:36:32 losartan 100 mg tablet 2020 021 [facility] #74413, [address], [place], [place], [id number], 10:49:49 Bactrim DS 800 mg-160 mg tablet 2020 021 [email or web address] [facility] #65915, [address], [place], [place], [id number], 10:51:20 Ozempic 0.25 mg or 0.5 mg (2 mg/1.5 mL) subcutaneou s pen injector 2020 021 [email or web address] [facility] #75783, [address], [place], [place], [id number], 10:53:38 baclofen 10 mg tablet 2020 021 STUART [facility] #40663, [address], [place], [place], [id number], 15:20:14 Patient TargetsNo targets recorded. Patient Instructions Encounter Date Encounter Id Patient Instructions Last Modified By Organization Details Last Modified Time 11/29/2020 [id number] gout: care instructions Not available 11/29/2020 15:19:53 high blood pressure: care instructions Not available 11/29/2020 15:19:52 learning about high blood pressure Not available 11/29/2020 15:19:52 check labs and cont to follow. pt with several complaints and likely related to PK def and or uncontrolled htn/dm. check labs and get an idea where to go from here Not available 11/29/2020 16:42:00 12/27/2020 [id number] type 2 diabetes: care instructions Not available 12/27/2020 10:49:35 Long d/w pt on labs and concerns i have. will address diabetes and HTN. start on ozempic and losartan. will try to get pt established with rheum to help manage meds and issues. will give abx for lesion on back. suspect insect bite and will cont to monitor Not available 12/27/2020 13:00:21 02/01/2021 [id number] pleurisy: care instructions Not available 02/01/2021 16:36:24 03/01/2021 [id number] abdominal pain: care instructions Not available 03/01/2021 [...] effects improve. Not available 03/01/2021 12:39:57 04/10/2021 [id number] high blood pressure: care instructions Not available 04/10/2021 10:52:47 learning about high blood pressure Not available 04/10/2021 10:52:47 high cholesterol : care instructions Not available 04/10/2021 10:52:47 will trade from ozempic to trulicity and see if better tolerated. cont to follow. 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 5 Not Available [facility] [address] [place], [address], 11/30/2020 07:25:33 11/30/1911/30/2020 testo stero ne, total , serum testosterone 333 NG/dL 300-89 0 Not Available [facility] [address] [place], [address], 11/30/2020 07:25:33 11/30/1911/30/2020 PSA, serum or plasm a PSA 1.49 NG/mL 0.00-4 .00 Comme nt for PSA Test perfo rmed using the Cooper elect cooper milum inesc ent immun oassa y (ECLI A). Not Available [facility] [address] [place], [address], 11/30/2020 07:25:34 11/30/19 21 11/30/2020 CBC w/ auto diff WBC 13.8 K/uL 4.0-11 .0 high Not Available [facility] [address] [place], [address], 11/30/2020 07:25:34 11/30/19 21 11/30/2020 CBC w/ auto diff RBC 3.21 M/uL 4.30-5 .70 low Not Available [facility] [address] [place], [address], 11/30/2020 07:25:34 11/30/19 21 11/30/2020 CBC w/ auto diff hemoglobin 10.8 g/dL 13.0-1 7.5 low Not Available [facility] [address] [place], [address], 11/30/2020 07:25:34 11/30/19 21 11/30/2020 CBC w/ auto diff hematocrit 34.0 % 39.0-5 5.0 low Not Available [facility] [address] [facility], [address], 11/30/2020 07:25:34 11/30/19 21 11/30/2020 CBC w/ auto diff MCV 105.9 fL 78.0-1 02.0 high Not Available [facility] [address], [place], [address], 11/30/2020 07:25:34 11/30/19 21 11/30/2020 CBC w/ auto diff MCH 33.6 pg 25.0-3 5.0 Not Available [facility] [address], [place], [address], 11/30/2020 07:25:34 11/30/19 21 11/30/2020 CBC w/ auto diff MCHC 31.8 g/dL 30.0-3 8.0 Not Available [facility] [address] [place], [address], 11/30/2020 07:25:34 11/30/19 21 11/30/2020 CBC w/ auto diff RDW 12.8 % 11.5-1 6.0 Not Available [facility] [address] [place], [address], 11/30/2020 07:25:34 11/30/19 21 11/30/2020 CBC w/ auto diff platelet count 433 K/uL 150-45 0 Not Available [facility] [address] [place], [place], [address], 11/30/2020 07:25:34 11/30/19 21 11/30/2020 CBC w/ auto diff abs neutrophils 8.2 K/uL 1.8-7. 0 high Not Available [facility] [address], [place], [address], 11/30/2020 07:25:34 11/30/19 21 11/30/2020 CBC w/ auto diff abs lymphocytes 2.9 K/uL 1.0-4. 0 Not Available [facility] [address], [place], [address], 11/30/2020 07:25:34 11/30/19 21 11/30/2020 CBC w/ auto diff abs monocytes 1.8 K/uL 0.1-1. 1 high Not Available [facility] [address] [place], [address], 11/30/2020 07:25:34 11/30/19 21 11/30/2020 CBC w/ auto diff abs eosinophils 0.3 K/uL 0.0-0. 5 Not Available [facility] [address], [place], [address], 11/30/2020 07:25:34 11/30/19 21 11/30/2020 CBC w/ auto diff abs basophils 0.1 K/uL 0.0-0. 3 Not Available [facility] [address] [place], [address], 11/30/2020 07:25:34 11/30/19 21 11/30/2020 CBC w/ auto diff abs bands 0.4 K/uL <0.1 high Not Available [facility] [address] [place], [address], 11/30/2020 07:25:34 11/30/19 21 11/30/2020 CBC w/ auto diff neutrophils 59.6 % Not Available [facility] [address] [place], [address], 11/30/2020 07:25:34 11/30/19 21 11/30/2020 CBC w/ auto diff lymphocytes 21.3 % Not Available [facility] [address] [place], [place], [address], 11/30/2020 07:25:34 11/30/19 21 11/30/2020 CBC w/ auto diff monocytes 13.4 % Not Available [facility] [address] [place], [address], 11/30/2020 07:25:34 11/30/19 21 11/30/2020 CBC w/ auto diff eosinophils 2.1 % Not Available [facility] [address] [place], [address], 11/30/2020 07:25:34 11/30/19 21 11/30/2020 CBC w/ auto diff basophils 1.0 % Not Available [facility] [address] [facility], [address], 11/30/2020 07:25:34 11/30/19 21 11/30/2020 CBC w/ auto diff bands 2.6 % Not Available [facility] [address] [facility], [address], 11/30/2020 07:25:34 11/30/19 21 11/30/2020 blood film for revmckayla w blood film for review See Note Comme nts on Lab Id:[id number] RBC Morph ology : Spher ocyte s +, Targe t cells +, Aniso cytos is ++, Macro cytes ++, Poiki locyt osis +++, Polyc hroma tic cells +++, Large Plate lets ++, Giant Plate lets ++, Plate let Clump s ++ Plate lets Liza l Not Available [facility] [address] [facility] [facility] [place], [address], 11/30/2020 07:25:35 11/30/19 21 12/01/2020 CMP, serum or plasm a sodium 136 mEq/L 135-14 6 Not Available [facility] [address] [place], [address], 12/01/2020 05:28:13 11/30/19 21 12/01/2020 CMP, serum or plasm a potassium 4.9 mEq/L 3.5-5. 4 Not Available [facility] [address] [place], [address], 12/01/2020 05:28:13 11/30/19 21 12/01/2020 CMP, serum or plasm a chloride 100 mEq/L 95-107 Not Available [facility] [address] [facility], [address], 12/01/2020 05:28:13 11/30/19 21 12/01/2020 CMP, serum or plasm a carbon dioxide 19 mEq/L 19-31 Not Available [facility] [address] [place], [address], 12/01/2020 05:28:13 11/30/19 21 12/01/2020 CMP, serum or plasm a anion gap 17 mEq/L 7-23 Not Available [facility] [address] [place], [address], 12/01/2020 05:28:13 11/30/19 21 12/01/2020 CMP, serum or plasm a glucose non-fasting 432 mg/dL 70-139 high Not Available [facility] [address] [place], [place], [address], 12/01/2020 05:28:13 11/30/19 21 12/01/2020 CMP, serum or plasm a urea nitrogen (BUN) 21 mg/dL 6-20 high Not Available [facility] [address] [place], [place], [address], 12/01/2020 05:28:13 11/30/1912/01/2020 CMP, serum or plasm a creatinine 1.19 mg/dL 0.80-1 .40 Not Available [facility] [address] [place], [place], [address], 12/01/2020 05:28:13 11/30/1912/01/2020 CMP, serum or plasm a eGFR 80 mL/mi n/1.7 3m'2 >59 Not Available [facility] [address] [place], [address], 12/01/2020 05:28:13 11/30/19 21 12/01/2020 CMP, serum or plasm a eGFR non- amer 69 mL/mi n/1.7 3m'2 >59 Not Available [facility] [address] [place], [address], 12/01/2020 05:28:13 11/30/19 21 12/01/2020 CMP, serum or plasm a BUN/creatini ne ratio 18 ratio Not Available [facility] [address] [place], [address], 12/01/2020 05:28:13 11/30/19 21 12/01/2020 CMP, serum or plasm a calcium total 10.5 mg/dL 8.5-10 .5 Not Available [facility] [address] [place], [address], 12/01/2020 05:28:13 11/30/19 21 12/01/2020 CMP, serum or plasm a protein total 7.2 g/dL 6.1-8. 3 Not Available [facility] [address] [place], [address], 12/01/2020 05:28:13 11/30/19 21 12/01/2020 CMP, serum or plasm a albumin 4.5 g/dL 3.5-5. 2 Not Available [facility] [address] [place], [address], 12/01/2020 05:28:13 11/30/19 21 12/01/2020 CMP, serum or plasm a globulin 2.7 g/dL 1.7-4. 3 Not Available [facility] [address] [place], [address], 12/01/2020 05:28:13 11/30/19 21 12/01/2020 CMP, serum or plasm a A/G ratio 1.7 ratio 0.9-2. 8 Not Available [facility] [address] [facility], [address], 12/01/2020 05:28:13 11/30/19 21 12/01/2020 CMP, serum or plasm a bilirubin total 0.9 mg/dL 0.0-1. 2 Not Available [facility] [address] [facility], [address], 12/01/2020 05:28:13 11/30/19 21 12/01/2020 CMP, serum or plasm a alkaline phosphatase 124 U/L 40-121 high Not Available [facility] [address] [facility], [address], 12/01/2020 05:28:13 11/30/19 21 12/01/2020 CMP, serum or plasm a AST (SGOT) 19 U/L 9-50 Not Available [facility] [address] [facility], [address], 12/01/2020 05:28:13 11/30/19 21 12/01/2020 CMP, serum or plasm a ALT (SGPT) 27 U/L 5-50 Not Available [facility] [address] [place], [address], 12/01/2020 05:28:13 03/01/20 21 03/02/2021 COMP METAB OLIC PANEL sodium 137 mEq/L 135-14 6 Not Available [facility] [address] [place], [address], 03/02/2021 07:13:23 03/01/20 21 03/02/2021 COMP METAB OLIC PANEL potassium 4.7 mEq/L 3.5-5. 4 Not Available [facility] [address] [place], [address], 03/02/2021 07:13:23 03/01/20 21 03/02/2021 COMP METAB OLIC PANEL chloride 107 mEq/L 95-107 Not Available [facility] [address] [place], [address], 03/02/2021 07:13:23 03/01/20 21 03/02/2021 COMP METAB OLIC PANEL carbon dioxide 17 mEq/L 19-31 low Not Available [facility] [address], [place], [address], 03/02/2021 07:13:23 03/01/20 21 03/02/2021 COMP METAB OLIC PANEL anion gap 13 mEq/L 7-23 Not Available [facility] [address] [place], [address], 03/02/2021 07:13:23 03/01/20 21 03/02/2021 COMP METAB OLIC PANEL glucose fasting 249 mg/dL 70-99 high Not Available [facility] [address], [place], [address], 03/02/2021 07:13:23 03/01/20 21 03/02/2021 COMP METAB OLIC PANEL urea nitrogen (BUN) 22 mg/dL 6-20 high Not Available [facility] [address], [place], [address], 03/02/2021 07:13:23 03/01/20 21 03/02/2021 COMP METAB OLIC PANEL creatinine 1.07 mg/dL 0.80-1 .40 Not Available [facility] [address], [place], [address], 03/02/2021 07:13:23 03/01/20 21 03/02/2021 COMP METAB OLIC PANEL eGFR 91 mL/mi n/1.7 3m'2 >59 Not Available [facility] [address] [place], [address], 03/02/2021 07:13:23 03/01/20 21 03/02/2021 COMP METAB OLIC PANEL eGFR non- amer 79 mL/mi n/1.7 3m'2 >59 Not Available [facility] [address], [place], [address], 03/02/2021 07:13:23 03/01/20 21 03/02/2021 COMP METAB OLIC PANEL BUN/creatini ne ratio 21 ratio Not Available [facility] [address], [place], [address], 03/02/2021 07:13:23 03/01/20 21 03/02/2021 COMP METAB OLIC PANEL calcium total 10.2 mg/dL 8.5-10 .5 Not Available [facility] [address], [place], [address], 03/02/2021 07:13:23 03/01/20 21 03/02/2021 COMP METAB OLIC PANEL protein total 7.0 g/dL 6.1-8. 3 Not Available [facility] [address], [place], [address], 03/02/2021 07:13:23 03/01/20 21 03/02/2021 COMP METAB OLIC PANEL albumin 4.3 g/dL 3.5-5. 2 Not Available [facility] [address], [place], [address], 03/02/2021 07:13:23 03/01/20 21 03/02/2021 COMP METAB OLIC PANEL globulin 2.7 g/dL 1.7-4. 3 Not Available [facility] [address] [place], [address], 03/02/2021 07:13:23 03/01/20 21 03/02/2021 COMP METAB OLIC PANEL A/G ratio 1.6 ratio 0.9-2. 8 Not Available [facility] [address] [place], [address], 03/02/2021 07:13:23 03/01/20 21 03/02/2021 COMP METAB OLIC PANEL bilirubin total 1.2 mg/dL 0.0-1. 2 Not Available [facility] [address] [place], [address], 03/02/2021 07:13:23 03/01/20 21 03/02/2021 COMP METAB OLIC PANEL alkaline phosphatase 99 U/L 40-121 Not Available [facility] [address] [place], [address], 03/02/2021 07:13:23 03/01/20 21 03/02/2021 COMP METAB OLIC PANEL AST (SGOT) 18 U/L 9-50 Not Available [facility] [address] [place], [address], 03/02/2021 07:13:23 03/01/20 21 03/02/2021 COMP METAB OLIC PANEL ALT (SGPT) 25 U/L 5-50 Not Available [facility] [address] [place], [address], 03/02/2021 07:13:23 03/01/20 21 03/02/2021 LIPID PROFI LE cholesterol 225 mg/dL <200 high Not Available [facility] [address] [place], [address], 03/02/2021 07:13:23 03/01/20 21 03/02/2021 LIPID PROFI LE triglyceride s 251 mg/dL 0-149 high Not Available [facility] [address] [place], [address], 03/02/2021 07:13:23 03/01/20 21 03/02/2021 LIPID PROFI LE HDL cholesterol 33 mg/dL >39 low Not Available [facility] [address] [place], [address], 03/02/2021 07:13:23 03/01/20 21 03/02/2021 LIPID PROFI LE LDL cholesterol 151 mg/dL <100 high Not Available [facility] [address] [place], [address], 03/02/2021 07:13:23 03/01/20 21 03/02/2021 LIPID PROFI LE non HDL cholesterol 192 mg/dL <130 high Not Available [facility] [address] [place], [address], 03/02/2021 07:13:23 03/01/20 21 03/02/2021 LIPID PROFI [...] Optim al) Coron martínez Risk Ratio : [place] [facility] for males < 4.97 NOTE: LDL calcu latio n updat ed to [facility] on 1. Pleas e conta ct AEL to obtai n addit ional infor delroy n on this new calcu latio n. Not Available [facility] [address] [facility], [address], 03/02/2021 07:13:23 03/01/20 21 03/02/2021 HEMOG LOBIN A1C hemoglobin A1C 7.7 % 4.2-5. 6 high Not Available [facility] [address] [facility], [address], 03/02/2021 07:13:24 03/01/20 21 03/02/2021 HEMOG LOBIN [...] labor atory consu ltati on. Not Available [facility] [address] [facility], [address], 03/02/2021 07:13:24 03/01/20 21 03/02/2021 CBC WITH DIFFE RENTI AL WBC 15.9 K/uL 4.0-11 .0 high Not Available [facility] [address] [facility], [address], 03/02/2021 07:13:24 03/01/20 21 03/02/2021 CBC WITH DIFFE RENTI AL RBC 2.95 M/uL 4.30-5 .70 low Not Available [facility] [address] [place], [address], 03/02/2021 07:13:24 03/01/20 21 03/02/2021 CBC WITH DIFFE RENTI AL hemoglobin 10.0 g/dL 13.0-1 7.5 low Not Available [facility] [address] [place], [address], 03/02/2021 07:13:24 03/01/20 21 03/02/2021 CBC WITH DIFFE RENTI AL hematocrit 31.6 % 39.0-5 5.0 low Not Available [facility] [address], [place], [address], 03/02/2021 07:13:24 03/01/20 21 03/02/2021 CBC WITH DIFFE RENTI AL MCV 107.1 fL 78.0-1 02.0 high Not Available [facility] [address], [place], [address], 03/02/2021 07:13:24 03/01/20 21 03/02/2021 CBC WITH DIFFE RENTI AL MCH 33.9 pg 25.0-3 5.0 Not Available [facility] [address] [place], [address], 03/02/2021 07:13:24 03/01/20 21 03/02/2021 CBC WITH DIFFE RENTI AL MCHC 31.6 g/dL 30.0-3 8.0 Not Available [facility] [address], [place], [address], 03/02/2021 07:13:24 03/01/20 21 03/02/2021 CBC WITH DIFFE RENTI AL RDW 13.9 % 11.5-1 6.0 Not Available [facility] [address] [place], [address], 03/02/2021 07:13:24 03/01/20 21 03/02/2021 CBC WITH DIFFE RENTI AL platelet count 462 K/uL 150-45 0 high Not Available [facility] [address] [place], [place], [address], 03/02/2021 07:13:24 03/01/20 21 03/02/2021 CBC WITH DIFFE RENTI AL abs neutrophils 9.8 K/uL 1.8-7. 0 high Not Available [facility] [address] [place], [place], [address], 03/02/2021 07:13:24 03/01/20 21 03/02/2021 CBC WITH DIFFE RENTI AL abs lymphocytes 3.3 K/uL 1.0-4. 0 Not Available [facility] [address] [place], [place], [address], 03/02/2021 07:13:24 03/01/20 21 03/02/2021 CBC WITH DIFFE RENTI AL abs monocytes 1.7 K/uL 0.1-1. 1 high Not Available [facility] [address] [place], [address], 03/02/2021 07:13:24 03/01/20 21 03/02/2021 CBC WITH DIFFE RENTI AL abs eosinophils 0.7 K/uL 0.0-0. 5 high Not Available [facility] [address] [place], [address], 03/02/2021 07:13:24 03/01/20 21 03/02/2021 CBC WITH DIFFE RENTI AL abs basophils 0.1 K/uL 0.0-0. 3 Not Available [facility] [address] [place], [address], 03/02/2021 07:13:24 03/01/20 21 03/02/2021 CBC WITH DIFFE RENTI AL abs bands 0.3 K/uL <0.1 high Not Available [facility] [address], [place], [address], 03/02/2021 07:13:24 03/01/20 21 03/02/2021 CBC WITH DIFFE RENTI AL neutrophils 61.7 % Not Available [facility] [address] [place], [address], 03/02/2021 07:13:24 03/01/20 21 03/02/2021 CBC WITH DIFFE RENTI AL lymphocytes 20.6 % Not Available [facility] [address], [place], [address], 03/02/2021 07:13:24 03/01/20 21 03/02/2021 CBC WITH DIFFE RENTI AL monocytes 10.7 % Not Available [facility] [address] [place], [address], 03/02/2021 07:13:24 03/01/20 21 03/02/2021 CBC WITH DIFFE RENTI AL eosinophils 4.5 % Not Available [facility] [address] [place], [place], [address], 03/02/2021 07:13:24 03/01/20 21 03/02/2021 CBC WITH DIFFE RENTI AL basophils 0.8 % Not Available [facility] [address] [place], [address], 03/02/2021 07:13:24 03/01/20 21 03/02/2021 CBC WITH DIFFE RENTI AL bands 1.7 % Not Available [facility] [address] [place], [address], 03/02/2021 07:13:24 03/01/20 21 03/02/2021 BLOOD FILM FOR FELICIANO Parra blood film for review See Note Brian nts on Lab Id:[id number] RBC Morph ology : Schis tocyt es +, Aniso cytos is ++, Macro cytes ++, Poiki locyt osis +++, Polyc hroma tic cells + Plate lets Incre ased Not Available [facility] [address] [place], [address], 03/02/2021 07:13:25 11/30/19 21 XR, chest , 2 view No observ ation record ed. Umair Milton MD [address], [place], [address], 11/29/2020 15:19:54 11/30/19 21 11/29/2020 XR, chest , 2 view No observ ation record ed. Umair Milton MD [address], [place], [address], 11/29/2020 15:56:34 Result Notes None recorded. 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 [place]is beasley, [place] - Umair Milton 6 10:28:28 Chronic tophaceous gout 10451679 Alfred Milton MD [address] [place], [address], [place] - Umair Milton 5 10:56:37 Diabetes mellitus 33284830 Active Conchis beasley, KATHERIN Milton 6 10:28:28 Impotence Active [place], [address], [facility] Umair Milton 5 10:56:37 Tick bite 03224693 Active Umair Milton MD [place] [place], [place], [address], [facility] Umair Karine 5 12:45:10 Abdominal pain 51109888 [place], [address], [facility] Umair Karine 5 12:45:10 Essential hypertension 84002078 Active Conchis beasley [facility] Karine 6 10:28:28 Hyperlipidemia 33382636 Active Esperanza beasley [facility] Karine 6 13:07:03 Problem Notes None recorded. Procedures Surgical History Date Name Laterality Status Provider Name and Address Organization Details Recorded Time 5 Colonoscopy completed Esperanza Rebolledo [facility] Umair Milton 01/18/2015 15:40:36 4 Splenectomy completed Tiffany Hendrix [facility] Umair Milton 11/21/2014 13:13:59 Imaging Results None [...] Not Available Not Available No t Available [employer] 10 mg-325 mg tablet Take 1 tablet every 4 hours by oral route as needed. 10/14 completed Not Available Not Available Not Available [employer] 7.5 mg-325 mg tablet Take 1 tablet [...] Updated DateTime 1 180.34 cm 35.4 kg/m2 307715. 46 g 98 [degF] 90 /min 92 % 186/97 mm[Hg] Esperanza Rebolledo KATHERIN [facility] 1 14:12:11 Date Recorded Body height Body mass index (BMI) Body weight Body temperature Oxygen saturation Heart rate Systolic And Diastolic Provider Name and Address Organization Details Last Updated DateTime 1 180.34 cm 34.6 kg/m2 705570. 91 g 97.2 [degF] 93 % 89 /min 189/100 mm[Hg] David Hutchisonson [facility] Umair [place] 1 10:19:54 Date Recorded Body height Body temperature Body mass index (BMI) Body weight Heart rate Oxygen saturation Systolic And Diastolic Provider Name and Address Organization Details Last Updated DateTime 1 180.34 cm 98.3 [degF] 34.2 kg/m2 912038. 13 g 101 /min 95 % 133/86 mm[Hg] Tiffany Hendrix [facility] Umair Wynnibner 1 15:59:08 Date Recorded Body height Body mass index (BMI) Body weight Body temperature Heart rate Oxygen saturation Systolic And Diastolic Provider Name and Address Organization Details Last Updated DateTime 1 180.34 cm 34 kg/m2 181177. 54 g 97.9 [degF] 94 /min 93 % 177/94 mm[Hg] David Littlejohn [facility] Umair Wynnibner 1 10:52:53 Date Recorded Body height Body mass index (BMI) Body weight Body temperature Heart rate Oxygen saturation Systolic And Diastolic Provider Name and Address Organization Details Last Updated DateTime 1 180.34 cm 33.3 kg/m2 784383. 58 g 96.9 [degF] 91 /min 96 % 135/80 mm[Hg] Esperanza Amaury PANDEY Umair Wynnibner 1 09:52:19 Social History Question Answer Notes LastModified by Organizat ion Details LastModified Time Tobacco Smoking Status Never Smoker Not Available [facility] 06/06/2020 03:38:56 What Is Your Level Of Caffeine Consumption? Occasional [id number] Information not available 06/06/2020 How Much Tobacco Do You Chew? None [id number] Information not available 06/06/2020 What Type Of Diet Are You Following? REGULAR [id number] Information not available 06/06/2020 Education 12 [email or web address] Information no t available 11/21/2014 How Many Days In The Past Year Have You Had A Heavy Drinking Consumption (4+ Female, 5+ Male)? 0 Information not available 11/18/2016 Are There Any Guns Present In Your Home? No [id number] Information not available 06/06/2020 Hard Of Hearing Or Deaf In One Or Both Ears? No [email or web address] Information not available 11/21/2014 Legally Blind In One Or Both Eyes? No Information not available 11/21/2014 Live Alone Or With Others? With Others Information not available 05/09/2015 Risk Assessment Medium Informati on not available 09/03/2017 Marital Status [email or web address] Informatio n not available 11/21/2014 What Was The Date Of Your Most Recent Tobacco Screening? 06/26/2020 Information not available 06/26/2020 How Many Children Do You Have? 3 [id number] Information not available 06/06/2020 Seat Belts Used Routinely Yes [email or web address] Information not available 11/21/2014 Smoke Alarm In Home Yes Information not available 11/21/2014 Are You Passively Exposed To Smoke? No Information not available 05/09/2015 How Much Tobacco Do You Smoke? No [id number] Information not available 06/06/2020 General Stress Level Medium Information not available 11/21/2014 Do You Use Sunscreen Routinely? No [id number] Information not available 06/06/2020 Do You Have Difficulty Walking Or Climbing Stairs? No [id number] Information not available 06/06/2020 Sex: Unknown Functional Status Question Answer Note LastModified by Organizat ion Details LastModified Time What is your level of alcohol consumption? None [id number] Information not available 06/06/2020 Do you or have you ever used smokeless tobacco? Never used smokeless tobacco Information not available 06/26/2020 Are you currently employed? Yes [id number] Information not available 06/06/2020 Urinary incontinence assessment performed? Yes Information not available 11/18/2016 Do you have difficulty doing errands alone? No [id number] Information not available 06/06/2020 Are you able to care for yourself independently? Yes [id number] Information not available 06/06/2020 Do you have difficulty dressing, bathing, grooming, or toileting? No [id number] Information not available 06/06/2020 Do you or have you ever used e-cigarettes or vape? Never used electronic cigarettes Information not available 06/26/2020 What is your exercise level? None [id number] Information not available 06/06/2020 Mental Status Question Answer Note LastModified by Organization D etails LastModified Time Do you have difficulty concentrating, remembering or making decisions? No [id number] Information no t available 06/06/2020 Family History Nothing Reported. Medical History Condition Response Blood Diseases Y Blood Transfusion Y Immunizations Vaccine Type Date Status Note Provider Nam e and Address Organization Details Recorded Time Tdap 05/16/2014 completed Not Available [facility] 12/09/2022 15:33:33 Past Encounters Encounter ID Performer Location Encounter Start Date Encounter Closed Date Diagnosis/Indication Diagnosis SNOMED-CT Code Diagnosis ICD10 Code Diagnosis IMO Codes Diagnosis Note [id number] Umair Milton MD Main Office [address] [place] [address] 55303-144 1 11/21/2014 12:11:45 11/21/2014 14:05:23 Hematochezia [id number] cbc,cea. will set up for colonoscop y and follow. send lab results to [facility]. Chronic go uty arthritis 70099014 uric acid, cmp. pt may need to stop nsaid and allopurino l. sees rheum tomorrow. hesitant to give steroid injection while taking high dose steroid. 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 curious to see how much improved [place]ectom y [id number] Umair Milton MD Main Office [address] [place] [address] [id number] 1 05/09/2015 09:56:23 05/09/2015 11:10:21 Chronic tophaceous gout 51970062 M1A.9XX1 Diabetes mellitus 843683 09 E11.319 cbc,cmp, hgba1c Impotence 577360725 N52. 9 [id number] Umair Milton MD Main Office [address] [place] [address] [id number] 1 06/05/2015 12:00:01 06/05/2015 12:52:46 Chronic gouty arthritis 11940978 M1A.9XX0 Tick bite 19672636 W57.X XXA cbc,cmp, tick panel Abdominal pain 35457814 R10.9 [id number] Umair Milton MD Main Office [address] [place] [address] 02733-528 1 11/08/2015 09:12:19 11/08/2015 10:34:03 Diabetes mellitus 61397547 E11.319 Chronic go uty arthritis 00516450 M1A.9XX0 Deficiency of pyruvate kinase 304561783 E88.89 Essential hypertension 89215934 I10 [id number] Umair Milton MD Main Office [address] [place] [address] 98441-597 1 05/22/2016 11:19:53 05/22/2016 12:52:47 Hyperlipidemia 87876574 E78.5 Essential hypertension 16202078 I10 Uncontroll ed type 2 diabetes mellitus 762802481 E11.65 Fatigue 09735284 R53.83 Chronic go uty arthritis 18500947 M1A.9XX0 Deficiency of pyruvate kinase 819935530 E88.89 Adult heal th examination 721137706 Z00.00 Administra tion of pneumococcal vaccine 91733313 Z23 [id number] Umair Milton MD Main Office [address] [place] [address] 81879-992 1 11/18/2016 14:47:07 11/18/2016 16:59:32 Depression screening 153276711 Z13.89 Arthritis of hip 5705352 6 M13.852 left hip - severe deg changes, Chronic go uty arthritis 47988878 M1A.9XX0 [id number] Umair Milton MD Main Office [address] [place] [address] 52523-120 1 10/14/2018 11:14:43 10/14/2018 12:26:20 Essential hypertension 25828004 I10 Hyperlipidemia 24831697 E78.5 Diabetes mellitus 779721 09 E11.319 Chronic go uty arthritis 63246799 M1A.9XX0 Strain of back muscle 26 5281366 S39.012A Cerebrovas cular accident 869016776 I63.9 [id number] Umair Milton MD Main Office [address] [place] [address] [id number] 1 12/01/2018 11:40:11 12/01/2018 12:45:33 Uncontrolled type 2 diabetes mellitus 188216493 E11.65 Hyperlipidemia 41041254 E78.5 Gout 29760717 M10.9 Anemia of chronic disease 073161409 D63.8 [id number] Umair Milton MD Main Office [address] [place] [address] 53145-881 1 12/08/2019 14:43:55 12/08/2019 15:50:39 Obstruction of lacrimal canaliculus 642592096 H04.549 Onychomyco sis of toenails 920109603 B35.1 Gouty tophus 187861154 M 1A.9XX1 [id number] Umair Milton MD Main Office [address] [place] [address] 61038-327 1 06/26/2020 14:05:51 06/26/2020 14:50:45 Hyperlipidemia 77469745 E78.5 Essential hypertension 00890578 I10 Chronic go uty arthritis 25690137 M1A.9XX0 Diabetes mellitus 950557 09 E11.319 Strain of back muscle 26 7227837 S39.012A Deficiency of pyruvate kinase 710132049 E88.89 [id number] Umair Milton MD Main Office [address] [place] [address] [id number] 1 11/29/2020 14:07:30 11/29/2020 15:28:15 Chest wall pain 180158200 R07.89 Chest - unremarkab le Essential hypertension 43813499 I10 Gout 69048856 M10.9 Hypogonadism 23626538 E2 9.1 Deficiency of pyruvate kinase 710626343 E88.89 [id number] Umair Milton MD Main Office [address] [place] [address] [id number] 1 12/27/2020 10:06:14 12/27/2020 17:46:28 Uncontrolled type 2 diabetes mellitus 325587688 E11.65 Hypertensive disorder 38 353500 I10 Chronic go uty arthritis 12507269 M1A.9XX0 Insect bite - wound 9214 82615 T14.8XXA Deficiency of pyruvate kinase 666435543 E88.89 [id number] Umair Milton MD Main Office [address] [place] [address] [id number] 1 02/01/2021 15:36:36 02/06/2021 12:17:09 Pleurisy 474785633 R09.1 [id number] Umair Milton MD Main Office [address] [place] [address] 1 03/01/2021 10:40:11 03/01/2021 11:24:02 Deficiency of pyruvate kinase 476413389 E88.89 Abdominal pain 69960470 R10.9 Impotence 646572567 N52. 9 Essential hypertension 04263994 I10 Uncontroll ed type 2 diabetes mellitus 584975365 E11.65 [id number] Umair Milton MD Main Office [address] [place] [address] [place] [address] 1 04/10/2021 09:43:24 04/10/2021 10:58:38 Hyperlipidemia 93655655 E78.5 Essential hypertension 25118320 I10 Chronic go uty arthritis 80282729 M1A.9XX0 Diabetes mellitus 106708 09 E11.319 Health Concerns Section Related Observation LastModified by Organization Detai ls LastModified Time None Recorded Concern Status LastModified by Organization Details LastModified Time None Recorded Advance Directives Directive None Recorded Payers Insurance Date Sequence Insurance Name Policy Number Policy Colón Covered Member ID Colón Member ID Guarantor Name 06/05/2015 1 [facility] ([facility] [id number] Ernie Plasencia [id number] Ernie Plasencia 10/14/2018 1 [employer] - OPEN ACCESS MANAGED CHOICE (POS) [id number] Ruth Ann Plasencia [id number] Ernie Plasencia 07/10/2021 1 [facility] [id number] Ruth Ann Plasencia [id number] Ernie Plasencia Notes Date Note Type Note [...] Umair Milton MD [address] [place], [address], [place] Umair Milton 11/29/2020 16:42:05 1 [...] Umair Milton MD [address] [place], [address], KATHERIN Milton 12/27/2020 13:01:01 1 text/html Musculoskeletal [...] Umair Milton MD [address] [place], [address], KATHERIN Milton 02/01/2021 17:44:24 1 text/html Musculoskeletal [...] Umair Milton MD [address] [place], [address], KATHERIN Milton 03/01/2021 12:40:01 1 text/html Hypertension [...] Umair Milton MD [address] [place], [address], KATHERIN Milton 04/10/2021 13:37:37
--- NOTE | 2025-07-31 13:51 | ED_ITS ---
HPI - Arrhythmia/Palpitations 2 General: Chief Complaint: Arrhythmia/Palpitations Stated Complaint: high hr Time Seen by Provider: 07/31/25 13:33 Source: patient Mode of arrival: ambulatory Limitations: no limitations History of Present Illness: 60-year-old male has a history of atrial fibs states he started having palpitations this morning at 430 and his heart rate was going over 100. States he did take his metoprolol this morning with no relief he is in A-fib with RVR here with heart rates in 130s. He denies any shortness of breath denies any chest pain has had no vomiting or diarrhea. Related Data Home Medications ?Medication ?Instructions ?Recorded ?Confirmed B-complex with vitamin C 1 cap PO DAILY 06/15/2507/05 benfotiamine 150 mg capsule 150 mg PO BID 06/15/25 losartan 25 mg tablet 25 mg PO QPM 06/29/25 furosemide 40 mg tablet 40 mg PO DAILY PRN Weight Ga in 07/15/25 07/31/25 Previous Rx's ?Medication ?Instructions ?Recorded metoprolol succinate 50 mg 50 mg PO DAILY #90 tabs tablet,extended release 24 hr apixaban 5 mg tablet (Eliquis) 5 mg PO BID #180 tabs 1 08/14/24 clonidine HCl 0.1 mg tablet 0.1 mg PO DAILY PRN hypert ension 06/25/25 #20 tabs hydralazine 25 mg tablet 25 mg PO TID #90 tabs Allergies Allergy/AdvReac Type Severity Reaction Status Date / Time cashew nut Allergy Intermediate ALGY-Rash Verified 07/31/25 13:15 pistachio nut Allergy Intermediate ALGY-Rash Verified 07/31/25 13:15 Calcium Channel Blocking Allergy Unknown Verified 07/31/25 13:15 Agent Dilt Review of Systems 2 Card: Reports: palpitations PFSH ED 2 PFSH: Medical History NSTEMI (non-ST elevated myocardial infarction) Mass of right kidney Noncompliance Acute hypercapnic respiratory failure Obstructive sleep apnea Attention deficit disorder Type 2 diabetes mellitus Sepsis Erectile disorder due to medical condition in male Cardiac left ventricular ejection fraction greater than or equal to 40 percent Actinic keratosis Seborrheic keratosis Pyruvate kinase (PK) deficiency anemia On continuous oral anticoagulation Recurrent cerebrovascular accidents (CVAs) Paroxysmal atrial fibrillation with rapid ventricular response Atrial flutter Acute kidney injury Macrocytic anemia Leukocytosis Febrile Leg pain, left Tick bite Basilar artery stenosis Vertebrobasilar ischemia Hyperlipidemia Gout Hx of ischemic vertebrobasilar artery brainstem stroke (2012) Hypertension Surgical History Post-splenectomy History of colonoscopy (2014) History of bone marrow biopsy (01/07/14) Bone marrow aspiration and biopsy at [facility] H/O knee surgery Left knee cap repair - JAVON Taylor - Dr. 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 Daughter Anesthesia complication Mother Cancer Lung Other Diabetes Hyperlipidemia Hypertension Stroke Denies family history of CAD (coronary artery disease) Clotting disorder Dementia Psychiatric illness Chronic kidney disease (CKD) Suicide Bleeding disorder Lung disease Social History Smoking and tobacco/nicotine status: never used tobacco/nicotine Alcohol intake: never Substance/Drug Use: never Additional social history: Patient wants full code as discussed today with Boogie Griffith MD on 04/30/2025. His next of kin is daughter Daija. 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 He also helps his own kids running errands etc. they are ages 37, 35 and 27. He states he is not as active after his stroke service: Yes Current occupation: [employer] Physical Exam 2 Const: COMMON NORMALS: patient oriented x3 HENMT: COMMON NORMALS: normocephalic and atraumatic HEAD & SCALP: n ormocephalic and atraumatic Neck/C-Spine: COMMON NORMALS: full ROM and supple Chest: COMMONS NORMALS: normal inspection of the chest Resp: COMMON NORMALS: normal respiratory effort, No retractions, No use of accessory muscles and clear to auscultation bilaterally AUSCULTATION: clear to auscultation bilaterally Cardio: COMMON NORMALS: No murmurs present (Cardio) RATE: tachycardic R HYTHM: abnormal rhythm irregularly irregular Extremity: COMMON NORMALS: normal to inspection and full ROM Neuro: COMMON NORMALS: patient oriented x3, moves all extremities and no focal motor deficits Psych: COMMON NORMALS: mental status grossly normal, Normal thought process present and cooperative THOUGHT PROCESS: Normal thought process present Skin: COMMON NORMALS: no rashes or lesions noted and no wounds GENERAL SKIN EXAM: no rashes or lesions noted Procedures Procedural Sedation Indication: other (cardioversion) ASA Class: II Time of Last PO Intake: 12:00 Preparation: monitoring tech applied, pulse oximeter and supplemental O2 applied IV Etomidate dose (mg): 10 Patient Tolerated Procedure: well Complications: none Additional Comments: time out was 1605 left room at 1613 Course 2 Vital Signs: Vital signs: Vital Signs Temperature 98.1 F 07/31/25 13:05 Pulse Rate 78 07/31/25 16:15 Respiratory Rate 16 07/31/25 16:06 Blood Pressure 152/83 07/31/25 16:15 Pulse Oximetry 95 07/31/25 16:15 Oxygen Delivery Me thod Room Air 07/31/25 16:15 MDM - Arrhythmia/Palpitations Medical Decision Making 60-year-old male has a history of paroxysmal A-fib and started having A-fib this morning. Patient's had no chest pain no shortness of breath no signs of ACS or pulmonary emboli. Did give him IV labetalol and then an amiodarone and he did not convert. Did offer patient admission on amiodarone drip states stated he wants to go home. I did cardiovert patient in the ER with synchronized cardioversion. Did observe patient for roughly an hour after that he is feeling well with no complaints he is stable for discharge at this time he is follow-up with his PCP and his dials inspector and return if worsening he understands agrees to plan. critical care time 35 minutes The high probability of a clinically significant, sudden or life threatening deterioration of the patient's cv system(s) required my full and direct attention, intervention and personal management. The critical care time is as shown. This time is in addition to time spent performing any reported procedures but includes the following: [x] Data and vital sign review and interpretation [x] Patient assessment, examination and intervention [x] Documentation [x] Medication orders and management EKG interpreted by me at 1310 A-fib with RVR heart rate [address] elevation QRS 85 QTc 346 EKG #2 interpreted by me at 1610 normal sinus rhythm heart rate [address] elevation QRS 96 QTc 376 Medical Records I reviewed the patient's medical records. Lab Data I reviewed the patient's lab results. 07/31/25 13:48 07/31/25 13:48 Laboratory Results WBC 13.74 10^3/uL (3.29-11.43) H 07/31/25 13:48 RBC 2.35 10^6/uL (3.85-5.65) L 07/31/25 13:48 Hgb 7.60 g/dL (11.27-16.99) L 07/31/25 13:48 Hct 24.6 % (37-53) L 07/31/25 13:48 MCV 104.7 fl (82-101) H 07/31/25 13:48 MCH 32.3 pg (27-33) 07/31/25 13:48 MCHC 30.9 g/dL (30-55) 07/31/25 13:48 RDW 18.1 % (12.1-15.1) H 07/31/25 13:48 Plt Count 439 10^3/cmm (157-399) H 07/31/25 13:48 MPV 11.2 fL (7.4-10.4) H 07/31/25 13:48 Neut % (Auto) 69.3 % 07/31/25 13:48 Lymph % (Auto) 18.6 % 07/31/25 13:48 [place] % (Auto) 10.3 % 07/31/25 13:48 Eos % (Auto) 0.9 % 07/31/25 13:48 Baso % (Auto) 0.5 % 07/31/25 13:48 Neut # (Auto) 9.52 10^3/uL (1.8-7.7) H 07/31/25 13:48 Lymph # (Auto) 2.6 10^3/uL (0.8-4.8) 07/31/25 13:48 [place] # (Auto) 1.4 10^3/uL (0.2-0.9) H 07/31/25 13:48 Eos # (Auto) 0.1 10^3/uL (0.0-0.8) 07/31/25 13:48 Baso # (Auto) 0.1 10^3/uL (0.0-0.1) 07/31/25 13:48 Nucleated RBC % (auto) 0.1 % 07/31/25 13:48 Nucleated RBCs # 0.0 /100WBC 07/31/25 13:48 Sodium 140 mmol/L (136-145) 07/31/25 13:48 Potassium 5.2 mmol/L (3.5-5.1) H 07/31/25 13:48 Chloride 105 mmol/L (98-107) 07/31/25 13:48 Carbon Dioxide 22 mmol/L (22-29) 07/31/25 13:48 Anion Gap 18.2 (5-19) 07/31/25 13:48 BUN 40 mg/dL (6-20) H 07/31/25 13:48 Creatinine 1.9 mg/dL (0.7-1.2) H 07/31/25 13:48 GFR Calculation 36.6 mL/min (90-130) L 07/31/25 13:48 Glucose 146 mg/dL (65-115) H 07/31/25 13:48 Calculated Osmolality 302 mOsm/kg (285-295) H 07/31/25 13:48 Calcium 9.4 mg/dL (8.5-10.5) 07/31/25 13:48 Total Bilirubin 1.5 mg/dL (0.15-1.2) H 07/31/25 13:48 AST 17 U/L (0-40) 07/31/25 13:48 ALT 20 U/L (0-41) 07/31/25 13:48 Alkaline Phosphatase 83 U/L (40-130) 07/31/25 13:48 Total Protein 6.5 g/dL (6.6-8.7) L 07/31/25 13:48 Albumin 4.2 g/dL (3.5-5.2) 07/31/25 13:48 Globulin 2.3 g/dL (1.3-4.6) 07/31/25 13:48 No radiology studies performed this visit Critical Care Time 2 Critical Care Time: Critical Care Time: Yes Total Critical Care Time: 35 Attestation: The high probability of a clinically significant, sudden or life threatening deterioration of the patient's cv system(s) required my full and direct attention, intervention and personal management. The critical care time is as shown. This time is in addition to time spent performing any reported procedures but includes the following: [x] Data and vital sign review and interpretation [x] Patient assessment, examination and intervention [x] Documentation [x] Medication orders and management Discharge Plan Discharge Patient Disposition: Home Clinical Impression: Atrial fibrillation with RVR Condition: Stable Prescriptions: No Action losartan 25 mg tablet 25 mg PO QPM metoprolol succinate 50 mg tablet extended release 24 hr 50 mg PO DAILY Qty: 90 3RF Eliquis 5 mg tablet 5 mg PO BID Qty: 180 0RF B-complex with vitamin C Capsule 1 cap PO DAILY benfotiamine 150 mg capsule 150 mg PO BID clonidine HCl 0.1 mg tablet 0.1 mg PO DAILY PRN (Reason: hypertension) Qty: 20 0RF Rx Instructions: For Systolic >185 diastolic >100. If you are needing this more than once a day you need to follow with your primary care provider furosemide 40 mg tablet 40 mg PO DAILY PRN (Reason: Weight Gain) hydralazine 25 mg tablet 25 mg PO TID Qty: 90 0RF Discharge Orders: Discharge ED (Routine); Ordered 07/31/25 Ordered By: Lynette Hood Referrals: Yu Lee APN [Primary Care Provider, [facility]] - 4-7 days Discharge Diet: Advance as tolerated Discharge Activity: Resume usual activity Patient Instructions: A-fib (Atrial Fibrillation) (ED) Print Language: Burkinan Coding Level of Care Code ED Development Director for Shira Mckinley
[2025-07-31 14:02] LABS: Hematocrit 24.6 % (37-53); Hemoglobin 7.60 g/dL (11.27-16.99); Mean Corpuscular HGB Conc 30.9 g/dL (30-55); Mean Corpuscular Hemoglobin 32.3 pg (27-33); Mean Corpuscular Volume 104.7 fl (82-101); Nucleated Red Blood Cells % 0.1 %; Platelet Count 439 10^3/cmm (157-399); Red Blood Count 2.35 10^6/uL (3.85-5.65); White Blood Count 13.74 10^3/uL (3.29-11.43)
[2025-07-31] MEDS: labetalol 5 mg/mL SDV 20mL 10 MG IVP ×2 (14:08→15:08)
[2025-07-31 14:24] LABS: Alanine Aminotransferase 20 U/L (0-41); Albumin Level 4.2 g/dL (3.5-5.2); Alkaline Phosphatase 83 U/L (40-130); Anion Gap 18.2 (5-19); Aspartate Amino Transferase 17 U/L (0-40); Blood Urea Nitrogen 40 mg/dL (6-20); Calcium 9.4 mg/dL (8.5-10.5); Carbon Dioxide 22 mmol/L (22-29); Chloride 105 mmol/L (98-107); Globulin 2.3 g/dL (1.3-4.6); Glucose 146 mg/dL (65-115); Osmolality Calculated 302 mOsm/kg (285-295); Potassium 5.2 mmol/L (3.5-5.1); Sodium 140 mmol/L (136-145); Total Protein 6.5 g/dL (6.6-8.7)
[2025-07-31] MEDS: amiodarone 150 MG/100 ML PREMIX 400 MG IV (15:11)
[2025-07-31] MEDS: etomidate 2 mg/mL INJ SDV 10 mL 10 MG IVP (16:05)
--- NOTE | 2025-07-31 16:10 | ECG_ITS ---
[employer] Test Date: 2025-07-31 Pat Name: Ernie Plasencia Department: Room: Gender: Male Back End Developer: : 1965 Requested By: Lynette Hood Order Number: [id number] Melina MD: SAM VOGT Measurements Intervals Dexter Rate: 77 P: 14 OR: 171 QRS: 24 QRSD: 96 T: 74 QT: 344 QTc: 391 Interpretive Statements SINUS RHYTHM NONSPECIFIC ST & T-WAVE ABNORMALITY Compared to ECG 07/31/2025 13:10:02 Atrial flutter no longer present Possible ischemia no longer present T-wave abnormality still present Electronically Signed On 07-31-2025 23:18:18 DENTAL OFFICE MANAGER by SAM VOGT [email or web address]
--- NOTE | 2025-07-31 16:14 | PC.NURSE ---
Dr. Hood cardiovert pt. pt on cardiac monitoring. RT and charge nurse Tatum RN in room. Pt afterwards is currently awake/alert x4, clear speech.
== END 2025-07-31 17:05 | disposition home or self-care (01) ==
PROVIDERS: Emergency Provider Emergency Medicine; PCP Nurse Practitioner Family
DX: I48.20 Chronic atrial fibrillation, unspecified (principal); Z79.01 Long term (current) use of anticoagulants; E11.9 Type 2 diabetes mellitus without complications; E78.5 Hyperlipidemia, unspecified; I10 Essential (primary) hypertension; Z86.73 Personal history of transient ischemic attack (TIA), and cerebral infarction without residual deficits
CPT/HCPCS: 80053; 85025; 93005; 96365; 96375; 96376; 99152; 99284; A4222; J0283; J3490

== ENCOUNTER 2025-08-03 05:14 | Emergency (ER) | payer OTHER, SELFPAY ==
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
--- OUTSIDE RECORDS SUMMARY | 2024-11-02 05:00 | XMS_ITS ---
Author Organization [facility] Address [address] [place] [address] Care Team Providers Care Failure Analysis Technician Name Role Phone Yu Lee Primary Care Provider [phone] YU LEE Unavailable Unavailable REASON FOR VISIT HFU OZH discharge 10/25 IND Left foot Encounters Encounter Location Date Provider Diagnosis [facility] Office [address] [place] [phone] 11/02/2024 Yu Lee Plan Of Treatment No Information Progress Notes * GARCIAErnieDOB: 7 (60 yo M)Acc No.[id number]:11/02/2024 Patient: Ernie Lechuga Provider: Brenda Lee APRN :1965 A ge:59 Y S ex:Male Date:11/02/2024 Address:[address] [id number] Subjective: * Chief Complaints: * H FU OZH discharge 10/25 IND Left foot Billing Information: * Procedure Codes: * Electronic signature of Gabrielle Lee APN on 08/03/2025 at 05:19 AM HARDWARE ENGINEERING MANAGER Sign off status: Pending * Provider: Brenda Lee APRN Date: 0 11/02/2024 Generated for Sasha donaldson/Elvin/Hadleyitting on: 05:19 AM HARDWARE ENGINEERING MANAGER
[2025-08-03] VITALS (54 sets, daily range): BP systolic 135–180; BP diastolic 73–119; PULSE 76–138; RESP 3–27; TEMP 36.9; O2SAT 85–100; BMI 32.1
--- OUTSIDE RECORDS SUMMARY | 2025-08-03 05:19 | XMS_ITS | Patient Health Record ---
Author Organization [facility] Address [address] [place] [address] Care Team Providers Care Evaporator Repairer Name Role Phone Yu Lee Primary Care Provider UnavailZE Earl Unavailable [phone] KAT MUELLER Unavailable [phone] PANDA HUIZAR Unavailable [phone] Allergies Allergen (clinical drug ingredient) Drug/Non Drug [...] Glucose 1+ Bilirubin - Ketones - Specific [place] 1.015 Occult Blood - pH 6.0 Urine [...] Notes Problem Disorder of kidney and/or ureter (365155200) Right renal mass (N28.89) Active confirmed Vital Signs Height-cm 180.34 cm 10/08/2024 Weight-kg 108.86 kg 10/08/2024 Height 71 in 10/08/2024 Weight 240 lbs 10/08/2024 BMI 33.47 kg/m2 10/08/2024 Encounters Encounter Location Date Provider Diagnosis [facility] [address] [place] [address] 10/08/2024 PANDA HUIZAR Right renal mass N28.89 [facility] [address] [place] [address] 09/27/2024 ZE MAHMOOD [facility] [address] [place] [address] 10/11/2024 PANDA HUIZAR [facility] [address] [place] [address] 10/21/2024 ZE MAHMOOD Assessments Encounter Date Diagnosis [...] & Pelvis W & [place] [address] 10/08/2024 Blood Urea Nitrogen (BUN) 10/08/2024 Creatinine Serum 10/08/2024 Insurance Providers Payer Name Payer Address Payer Phone Subscriber Number Group Number Insured Name Patient Relationship to Insured Coverage Start Date Coverage End Date Luis PINEDA [id number] [id number] Erinn Ernie Self - patient is the insured Medical (General) History Medical History History ICD Code Renal mass Hypertension Hx of stroke Surgical History Surgery Date(Month/Year) left knee repair left hip replacement splenectomy Hospitalization History Reason Date(Month/Year) Heart issues stroke
--- OUTSIDE RECORDS SUMMARY | 2025-08-03 05:20 | XMS_ITS | Clinical Summary ---
Author Organization [facility] Address [address] [facility] [address] Attn: Epic Prelude ADT [place] [address] Care Team Providers Care Athletic Gear Custodian Name Role Phone Umair Milton MD Primary Care Provider [phone] Allergies No known active allergies Medications cyclobenzaprine [...] tablet Take 1 mg by mouth daily supervisor pumping. 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 Gender Identity Not on file Sexual Orientation [...] (#1) 2025 Medical Devices Implanted Type Area Manager Diversity Device Identifier Shelf Expiration Date Model / Serial / Lot Cup Pinn Sctr Series 56mm 1217-22-056 - [id number] Implanted:Qty: 1 on 02/07/2017 by Jeremy Coyne MD Hip Left: Hip [employer]- [employer] 12/01/2026 6 / / [id number] Head Fem Art/Carlos Cer Sz36 1365-36-320 - [id number] Implanted:Qty: 1 on 02/07/2017 by Jeremy Coyne MD Hip Left: Hip J&J- [employer] REBA 11/01/2021 1365-36- 32 0 / / [id number] Hole Eliminator Skyforest 1246-03-000 - [id number] Implanted:Qty: 1 on 02/07/2017 by Jeremy Coyne MD Hip Left: Hip [employer]- [employer] 09/03/2026 0 / / [id number] Liner Pinn Altrx Poly 1221-36-056 - [id number] Implanted:Qty: 1 on 02/07/2017 by Jeremy Coyne MD Hip Left: Hip [employer]- [employer] 11/01/2021 6 / / [id number] Stem Fem Actis Hi Colr Sz5 1010-12-050 - [id number] Implanted:Qty: 1 on 02/07/2017 by Jeremy Coyne MD Hip Left: Hip [employer] 11/01/2025 1010-07-08 0 / / [id number] Procedures Procedure Name Priority Date/Time Associated Diagnosis Comments HEMOGLOBIN A1C Routine 01/10/2017 11:10 AM CDT from Last 3 Months or Most Recently Relevant to Health Maintenance Results * (ABNORMAL) HEMOGLOBIN A1C (01/10/2017 11:10 AM CDT) HEMOGLOBIN A1C 6.3(H) 4.0 - 6.0 % 01/10/2017 11:53 AM CDT [facility] EST. AVG GLUCOSE, A1C 134 mg/dL 01/10/2017 11:53 AM CDT [facility] Blood Collection / Unknown 01/10/2017 11:10 AM CDT 01/10/2017 11:37 AM CDT us Vipin Reddy MD CHEMISTRY ORDERABLES Final Resu lt [facility] #[id number] [address] [address] [facility] #[id number] [address] [place] [address] from Last 3 Months or Most Recently Relevant to Health Maintenance Insurance [facility] OPTIONS PPO [id number] CHOICE PLUS * Guarantor: ERNIE GARCIA Account Type Relation to Patient Date of Phone Billing Address Personal/Family [address] [address] Care Teams Athletic Gear Custodian Relationship Specialty Start Date End Date Umair Milton MD [address] [address] [place] [address] PCP - General Jacket Preparer 02/07/17
--- OUTSIDE RECORDS SUMMARY | 2025-08-03 05:20 | XMS_ITS | Patient Health Record ---
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 Stress is when someone feels tense, nervous, anxious, or can't sleep at night because their mind is troubled Not at all In the past year have you sp ent more than 2 nights in a row in a skilled nursing, fdc, long term center, or juvenile correctional facility? No Are [...] US: no Cherry Chu 10/09/2022 03:39:57 PM FRAMING MILL OPERATOR HELPER > , No Alcohol: no Amber Scott any 10/09/2022 03:39:40 PM FRAMING MILL OPERATOR HELPER > , never Smoking: no Sonia Amber any 10/09/2022 03:39:37 PM FRAMING MILL OPERATOR HELPER > , NO Sexually active: Freida Scotty 10/09/2022 03:40:00 PM FRAMING MILL OPERATOR HELPER > Recreational drug use: no Sonia Cherry 10/09/2022 03:39:38 PM FRAMING MILL OPERATOR HELPER > , Denies Exercise: no Amber Scott any 10/09/2022 03:39:56 PM FRAMING MILL OPERATOR HELPER > , No Caffeine: yes Sonia Amber any 10/09/2022 03:39:54 PM FRAMING MILL OPERATOR HELPER > , Yes Advance Directive no Sonia, Linda luna 10/09/2022 03:40:06 PM FRAMING MILL OPERATOR HELPER > , None Herbal & OTC medications no Dennis stringer Cherry 10/09/2022 03:40:02 PM FRAMING MILL OPERATOR HELPER > , none Depression Screening Completed: no Sonia Cherry 10/09/2022 03:56:02 PM FRAMING MILL OPERATOR HELPER > , PHQ2 Pre-Visit Planning Completed: yes Sudeep olivia Cherry 10/09/2022 03:39:34 PM FRAMING MILL OPERATOR HELPER > , Same Day Appointment Diabetic testing: no Linda Scott 10/09/2022 03:40:08 PM FRAMING MILL OPERATOR HELPER > , Not diabetic Plan Of Treatment No Information Insurance Providers Payer Name Payer Address Payer Phone Subscriber Number Group Number Insured Name Patient Relationship to Insured Coverage Start Date Coverage End Date [employer] MEDICARE ADVANTAGE CHOICE [address] [address] [place] [address] [phone] [id number] TERRY GARCIA Self - patient is the insured Medications Administered Medication Instructions Date of Administration Dosage Notes cefTRIAXone Sodium 10/09/2022 1 g pt tolerated shot well [facility] [id number] Medical (General) History Medical History History ICD Code stroke Hospitalization History Reason Date(Month/Year) STROKE 111 YEARS AGO
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
--- OUTSIDE RECORDS SUMMARY | 2025-08-03 05:20 | XMS_ITS | Clinical Summary ---
Author Organization [facility] Address [address] [place] [address] Phone Care Team Providers Care Puppet Engineer Name Role Phone Umair Milton MD Primary Care Provider [phone] Allergies No known active allergies Medications allopurinol (ZYLOPRIM) 300 mg tablet Take 300 mg by mouth 2 times daily . Active folic acid (FOLVITE) 1 mg tablet Take 1 mg by mouth daily label cutter. Active niacin (NIACOR) 50 mg Tablet Take [...] 36.9 C (98.4 F) 09/18/2017 1:21 PM MANUFACTURING ADVISOR Respiratory Rate 20 07/10/2017 1:10 PM MANUFACTURING ADVISOR Oxygen Saturation 97% 07/10/2017 1:10 PM MANUFACTURING ADVISOR Inhaled Oxygen Concentration - - Weight 111.1 [...] (#1) 2025 Medical Devices Implanted Type Area Cleaning Supervisor Device Identifier Shelf Expiration Date Model / Serial / Lot Cup Pinn Sctr Series 56mm 1217-22-056 - [id number] Implanted:Qty: 1 on 02/07/2017 by Jeremy Coyne MD at [facility] Hip Left: Hip [employer]- [employer] 12/01/2026 6 / / [id number] Hole Eliminator Leon 1246-03-000 - [id number] Implanted:Qty: 1 on 02/07/2017 by Jeremy Coyne MD at [facility] Hip Left: Hip [employer] 09/03/2026 0 / / [id number] Stem Fem Actis Hi Colr Sz5 1010-12-050 - [id number] Implanted:Qty: 1 on 02/07/2017 by Jeremy Coyne MD at [facility] Hip Left: Hip [employer] 11/01/2025 1010-07-08 0 / / [id number] Head Fem Art/Carlos Cer Sz36 1365-36-320 - [id number] Implanted:Qty: 1 on 02/07/2017 by Jeremy Coyne MD at [facility] Hip Left: Hip [employer]- [employer] 11/01/2021 1365-36-3 2 0 / / [id number] Liner Pinn Altrx Poly 1221-36-056 - [id number] Implanted:Qty: 1 on 02/07/2017 by Jeremy Coyne MD at [facility] Hip Left: Hip [employer] 11/01/2021 6 / / [id number] Procedures Procedure Name Priority Date/Time Associated Diagnosis Comments HEMOGLOBIN A1C Routine 01/10/2017 11:10 AM CDT from Last 3 Months or Most Recently Relevant to Health Maintenance Results * (ABNORMAL) HEMOGLOBIN A1C (01/10/2017 11:10 AM CDT) HEMOGLOBIN A1C 6.3(H) 4.0 - 6.0 % 01/10/2017 11:53 AM CDT [facility] EST. AVG GLUCOSE, A1C 134 mg/dL 01/10/2017 11:53 AM CDT [facility] Blood Collection / Unknown 01/10/2017 11:10 AM CDT 01/10/2017 11:37 AM CDT us Vipin Reddy MD CHEMISTRY ORDERABLES Final Resu lt [facility] CLIA #[id number] [address] [place], [place] [address] from Last 3 Months or Most Recently Relevant to Health Maintenance Insurance [employer] LOCAL Advance Directives For more information, please contact: [phone] * Full Code (Latest Code Status on [...] 11:47 AM 02/08/2017 3:55 PM Care Teams Puppet Engineer Relationship Specialty Start Date End Date Umair Milton MD [address] [place] [address] [place] [address] PCP - General Pulmonary Physical Therapist 02/07/17
--- NOTE | 2025-08-03 05:28 | ECG_ITS ---
[facility] Test Date: 2025-08-03 Pat Name: Ernie Plasencia Department: Room: Gender: Male Damage Prevention Coordinator: : 1965 Requested By: Argelia Guzman Order Number: [id number] Melina MD: Ethan Trent M.D. Measurements Intervals [place] Rate: 133 P: 210 FL: 172 QRS: 47 QRSD: 88 T: 144 QT: 277 QTc: 413 Interpretive Statements ECTOPIC ATRIAL TACHYCARDIA VERSUS ATRIAL FLUTTER MARKED ST DEPRESSION, CONSIDER SUBENDOCARDIAL INJURY [0.2+ mV ST DEPRESSION] Compared to ECG 07/31/2025 16:10:41 ST DEPRESSION INCREASED Sinus rhythm no longer present Electronically Signed On 08-04-2025 15:56:11 [employer]OD TRADES ASSISTANTS by Ethan Trent M.D. [id number] [id number]
--- NOTE | 2025-08-03 05:42 | ECG_ITS ---
[facility] Date: 2025-08-03 Pat Name: Ernie Plasencia Department: Room: Gender: Male [employer] Dynamics Developer: : 1965 Requested By: Lynette Hood Order Number: [id number] Melina MD: Ethan Trent M.D. Measurements Intervals [place] Rate: 132 P: 0 VA: 0 QRS: 19 QRSD: 94 T: 28 QT: 288 QTc: 428 Interpretive Statements ATRIAL FIBRILLATION WITH RAPID VENTRICULAR RESPONSE NONSPECIFIC ST & T-WAVE ABNORMALITY ABNORMAL RHYTHM ECG Compared to ECG 08/03/2025 05:30:24 NO SIGNIFICANT CHANGE Electronically Signed On 08-04-2025 15:53:31 COMMERCIAL FRONT LOAD DRIVER by Ethan rTent M.D. [id number] [id number]
--- NOTE | 2025-08-03 05:42 | XRR_ITS ---
PROCEDURE INFORMATION: Exam: XR Chest Exam date and time: 08/03/2025 05:46 AM Age: 60 years old Clinical indication: Pain; Chest pressure; Additional info: Cp TECHNIQUE: Imaging protocol: Radiologic exam of the chest. Views: 1 view. COMPARISON: CR XR chest 1V portable [id number] 07/15/2025 02:23 PM FINDINGS: Lungs: Low lung volumes. No consolidation. Pleural spaces: Unremarkable. No pleural effusion. No pneumothorax. Heart/Mediastinum: Cardiac size and configuration is stable. Diaphragm: Asymmetric elevation of the left hemidiaphragm. Bones/joints: Unremarkable. XR/XR chest 1V portable [id number] IMPRESSION: No acute findings.
[2025-08-03 05:47] LABS: Hematocrit 25.2 % (37-53); Hemoglobin 7.80 g/dL (11.27-16.99); Mean Corpuscular HGB Conc 31.0 g/dL (30-55); Mean Corpuscular Hemoglobin 32.4 pg (27-33); Mean Corpuscular Volume 104.6 fl (82-101); Nucleated Red Blood Cells % 0.2 %; Platelet Count 453 10^3/cmm (157-399); Red Blood Count 2.41 10^6/uL (3.85-5.65); White Blood Count 17.30 10^3/uL (3.29-11.43)
--- NOTE | 2025-08-03 05:52 | W.ED.CHESTPA ---
HPI - Chest Pain General: Chief Complaint: Chest Pain Stated Complaint: Nose Bleed\Heart Fluttering Time Seen by Provider: 08/03/25 05:41 Source: patient Mode of arrival: ambulatory Limitations: no limitations History of Present Illness: 60-year-old male who has a history of A-fib. States that he woke up this morning having palpitations he is also been having some chest pain as well. His heart rate here is in the 130s he states it was in the 150s at home. I did see him earlier this week and cardioverted him. He states he has been taking his meds he has had a nosebleed as well. Associated symptoms: Reports palpitations Related Data Home Medications ?Medication ?Instructions ?Recorded ?Confirmed B-complex with vitamin C 1 cap PO DAILY 06/15/25 08/02/25 benfotiamine 150 mg capsule 150 mg PO BID 06/15/25 08/02/25 losartan 25 mg tablet 25 mg PO QPM 06/29/25 08/02/25 furosemide 40 mg tablet 40 mg PO DAILY PRN Weight Gain 07/15/25 08/02/25 Previous Rx's ?Medication ?Instructions ?Recorded metoprolol succinate 50 mg 50 mg PO DAILY #90 tabs 06/03/25 tablet,extended release 24 hr apixaban 5 mg tablet (Eliquis) 5 mg PO BID #180 tabs 06/14/25 clonidine HCl 0.1 mg tablet 0.1 mg PO DAILY PRN hypertension 06/25/25 #20 tabs hydralazine 25 mg tablet 25 mg PO TID #90 tabs 07/15/25 Allergies Allergy/AdvReac Type Severity Reaction Status Date / Time cashew nut Allergy Intermediate ALGY-Rash Verified 08/02/25 09:53 pistachio nut Allergy Intermediate ALGY-Rash Verified 08/02/25 09:53 Calcium Channel Blocking Allergy Unknown Verified 08/02/25 09:53 Agent Dilt Review of Systems Card: Reports: chest pain and palpitations [facility] ED PFSH: Medical History (Updated 08/03/25 @ 06:40 by Lynette Hood MD) NSTEMI (non-ST elevated myocardial infarction) Mass of right kidney Noncompliance Acute hypercapnic respiratory failure Obstructive sleep apnea Attention deficit disorder Type 2 diabetes mellitus Sepsis Erectile disorder due to medical condition in male Cardiac left ventricular ejection fraction greater than or equal to 40 percent Actinic keratosis Seborrheic keratosis Pyruvate kinase (PK) deficiency anemia On continuous oral anticoagulation Recurrent cerebrovascular accidents (CVAs) Paroxysmal atrial fibrillation with rapid ventricular response Atrial flutter Acute kidney injury Macrocytic anemia Leukocytosis Febrile Leg pain, left Tick bite Basilar artery stenosis Vertebrobasilar ischemia Hyperlipidemia Gout Hx of ischemic vertebrobasilar artery brainstem stroke (2012) Hypertension Surgical History Post-splenectomy History of colonoscopy (2014) History of bone marrow biopsy (01/07/14) Bone marrow aspiration and biopsy at [facility] H/O knee surgery Left knee cap repair - JAVON Taylor - Dr. 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 Daughter Anesthesia complication Mother Cancer Lung Other Diabetes Hyperlipidemia Hypertension Stroke Denies family history of CAD (coronary artery disease) Clotting disorder Dementia Psychiatric illness Chronic kidney disease (CKD) Suicide Bleeding disorder Lung disease Social History Smoking and tobacco/nicotine status: never used tobacco/nicotine Alcohol intake: never Substance/Drug Use: never Additional social history: Patient wants full code as discussed today with Boogie Griffith MD on 04/30/2025. His next of kin is daughter Daija. 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 He also helps his own kids running errands etc. they are ages 37, 35 and 27. He states he is not as active after his stroke service: Yes Current occupation: [employer] Physical Exam Const: COMMON NORMALS: no acute distress, patient oriented x3 and healthy appearing HENMT: COMMON NORMALS: normocephalic and atraumatic HEAD & SCALP: normocephalic and atraumatic Eye: COMMON NORMALS: Equal, round and reactive pupils present and EOMs intact bilaterally PUPIL: Yes Equal, round and reactive pupils present Neck/C-Spine: COMMON NORMALS: full ROM and supple Chest: COMMONS NORMALS: normal inspection of the chest Resp: COMMON NORMALS: normal respiratory effort, No retractions, No use of accessory muscles and clear to auscultation bilaterally AUSCULTATION: clear to auscultation bilaterally Cardio: COMMON NORMALS: No murmurs present (Cardio) RATE: tachycardic RHYTHM: abnormal rhythm irregularly irregular GI: COMMON NORMALS: Normal to inspection, nondistended, normoactive bowel sounds present, Soft to palpation, non-tender and no masses PALPATION: Yes Soft to palpation Extremity: COMMON NORMALS: normal to inspection and full ROM Neuro: COMMON NORMALS: patient oriented x3, moves all extremities and no focal motor deficits Psych: COMMON NORMALS: mental status grossly normal, Normal thought process present and cooperative THOUGHT PROCESS: Normal thought process present Skin: COMMON NORMALS: no rashes or lesions noted and no wounds GENERAL SKIN EXAM: no rashes or lesions noted Course Vital Signs: Vital signs: Vital Signs Temperature 98.4 F 08/03/25 05:22 Pulse Rate 138 H 08/03/25 06:15 Respiratory Rate 13 08/03/25 06:15 Blood Pressure 141/96 08/03/25 06:15 Pulse Oximetry 93 08/03/25 06:15 Oxygen Delivery Me thod Room Air 08/03/25 06:00 MDM - Chest Pain Medical Decision Making 60-year-old male presents here with A-fib with RVR. I did see him earlier this week and electively cardioverted him he states that he started having palpitations again overnight went back into A-fib heart rate at home has been 140s 150s he has been in the 130s here has had some slight chest pain has initial troponin here is at his baseline he has no signs of pulm emboli I did give him labetalol and started him on amiodarone drip spoke to hospitalist Dr. Medrano and will admit to cardiac stepdown EKG interpreted by me at 0540 A-fib with RVR heart rate [address] elevation QRS 94 QTc 366 critical care time 35 minutes The high probability of a clinically significant, sudden or life threatening deterioration of the patient's cv system(s) required my full and direct attention, intervention and personal management. The critical care time is as shown. This time is in addition to time spent performing any reported procedures but includes the following: [x] Data and vital sign review and interpretation [x] Patient assessment, examination and intervention [x] Documentation [x] Medication orders and management Medical Records I reviewed the patient's medical records. Lab Data I reviewed the patient's lab results. 08/03/25 05:30 08/03/25 05:30 Laboratory Results WBC 17.30 10^3/uL (3.29-11.43) H 08/03/25 05:30 RBC 2.41 10^6/uL (3.85-5.65) L 08/03/25 05:30 Hgb 7.80 g/dL (11.27-16.99) L 08/03/25 05:30 Hct 25.2 % (37-53) L 08/03/25 05:30 MCV 104.6 fl (82-101) H 08/03/25 05:30 MCH 32.4 pg (27-33) 08/03/25 05:30 MCHC 31.0 g/dL (30-55) 08/03/25 05:30 RDW 17.6 % (12.1-15.1) H 08/03/25 05:30 Plt Count 453 10^3/cmm (157-399) H 08/03/25 05:30 MPV 11.3 fL (7.4-10.4) H 08/03/25 05:30 Neut % (Auto) 67.5 % 08/03/25 05:30 Lymph % (Auto) 17.8 % 08/03/25 05:30 [place] % (Auto) 12.5 % 08/03/25 05:30 Eos % (Auto) 1.1 % 08/03/25 05:30 Baso % (Auto) 0.5 % 08/03/25 05:30 Neut # (Auto) 11.68 10^3/uL (1.8-7.7) H 08/03/25 05:30 Lymph # (Auto) 3.1 10^3/uL (0.8-4.8) 08/03/25 05:30 [place] # (Auto) 2.2 10^3/uL (0.2-0.9) H 08/03/25 05:30 Eos # (Auto) 0.2 10^3/uL (0.0-0.8) 08/03/25 05:30 Baso # (Auto) 0.1 10^3/uL (0.0-0.1) 08/03/25 05:30 Nucleated RBC % (auto) 0.2 % 08/03/25 05:30 Nucleated RBCs # 0.0 /100WBC 08/03/25 05:30 PT 15.30 SECONDS (12.1-14.9) H 08/03/25 05:30 INR 1.13 (0.8-1.2) 08/03/25 05:30 Sodium 141 mmol/L (136-145) 08/03/25 05:30 Potassium 4.4 mmol/L (3.5-5.1) 08/03/25 05:30 Chloride 107 mmol/L (98-107) 08/03/25 05:30 Carbon Dioxide 20 mmol/L (22-29) L 08/03/25 05:30 Anion Gap 18.4 (5-19) 08/03/25 05:30 BUN 36 mg/dL (6-20) H 08/03/25 05:30 Creatinine 1.7 mg/dL (0.7-1.2) H 08/03/25 05:30 GFR Calculation 41.6 mL/min (90-130) L 08/03/25 05:30 Glucose 109 mg/dL (65-115) 08/03/25 05:30 Calculated Osmolality 301 mOsm/kg (285-295) H 08/03/25 05:30 Calcium 9.4 mg/dL (8.5-10.5) 08/03/25 05:30 Total Bilirubin 1.6 mg/dL (0.15-1.2) H 08/03/25 05:30 AST 16 U/L (0-40) 08/03/25 05:30 ALT 21 U/L (0-41) 08/03/25 05:30 Alkaline Phosphatase 89 U/L (40-130) 08/03/25 05:30 Troponin T Baseline 47 ng/L (0-15) H 08/03/25 05:30 Total Protein 6.6 g/dL (6.6-8.7) 08/03/25 05:30 Albumin 4.2 g/dL (3.5-5.2) 08/03/25 05:30 Globulin 2.4 g/dL (1.3-4.6) 08/03/25 05:30 All radiology interpretation(s) finalized by discharge Critical Care Time Critical Care Time: Critical Care Time: Yes Total Critical Care Time: 35 Attestation: The high probability of a clinically significant, sudden or life threatening deterioration of the patient's cv system(s) required my full and direct attention, intervention and personal management. The critical care time is as shown. This time is in addition to time spent performing any reported procedures but includes the following: [x] Data and vital sign review and interpretation [x] Patient assessment, examination and intervention [x] Documentation [x] Medication orders and management Discharge Plan Discharge Patient Disposition: Admitted As Inpatient Clinical Impression: Atrial fibrillation with RVR Condition: Stable Coding Level of Care Code ED Top Collar Baster for Chg Fwd Heart Score HEART Score Components History: Slightly Suspicous EKG: Non-specific Changes Age: 45-64 yrs Risk Factors: 1 or 2 Risk Factors Troponin: Baseline Trop 16-45 ng/L HEART Score RESULT HEART Score: 4
[2025-08-03 05:54] LABS: INR 1.13 (0.8-1.2); Prothrombin Time 15.30 SECONDS (12.1-14.9)
[2025-08-03] MEDS: labetalol 5 mg/mL SDV 20mL 10 MG IVP (05:58)
[2025-08-03 05:59] LABS: Troponin(5th) Baseline 47 ng/L (0-15)
[2025-08-03 06:03] LABS: Alanine Aminotransferase 21 U/L (0-41); Albumin Level 4.2 g/dL (3.5-5.2); Alkaline Phosphatase 89 U/L (40-130); Anion Gap 18.4 (5-19); Aspartate Amino Transferase 16 U/L (0-40); Blood Urea Nitrogen 36 mg/dL (6-20); Calcium 9.4 mg/dL (8.5-10.5); Carbon Dioxide 20 mmol/L (22-29); Chloride 107 mmol/L (98-107); Creatinine Clr Calc Pharmacy 58.2243; Globulin 2.4 g/dL (1.3-4.6); Glucose 109 mg/dL (65-115); Osmolality Calculated 301 mOsm/kg (285-295); Potassium 4.4 mmol/L (3.5-5.1); Sodium 141 mmol/L (136-145); Total Protein 6.6 g/dL (6.6-8.7)
[2025-08-03 06:10] LABS: Slide Review Slide Review Perform
[2025-08-03] MEDS: amiodarone 150 MG/100 ML PREMIX 400 MG IV (06:27)
[2025-08-03] MEDS: AMIODARONE HCL/D5W 900 MG/500 ML BAG 33.33 MG IV (06:56)
[2025-08-03 07:35] LABS: ABG PCO2 34.7 mmHg (35-45); ABG PH Result 7.39 (7.35-7.45); Alveolar-Arterial Oxygen Gradi 3.1 mmHg (5-10); Arterial Blood Gas Hematocrit 21.7 % (42-52); Blood Gas Allen Test Pos; Blood Gas Operator Identificat AMH; Blood Gas Sample Site Radial, right; Blood Gas Sample Type Arterial; Carboxyhemoglobin 3.5 %THgb (0.4-20.1); Glucose Level-ABG 115.0 mg/dL (70-115); HCO3 ABG 21.0 mmol/L (22-26); Ionized Calcium Level - ABG 1.2 mmol/L (1.1-1.4); Methemoglobin 1.4 % (0.4-1.5); Oxygen Saturation ABG 96.5; PO2 ABG 82.7 mmHg (80.0-100.0); PO2 FiO2 Ratio Arterial Blood 393; Potassium Level - ABG 4.0 mmol/L (3.5-5.0); Sodium Level - ABG 142.0 mmol/L (131-143)
--- NOTE | 2025-08-03 08:08 | P.HP_ITS ---
<Statement entered by Sam Bo MD - 08/03/25 20:21> Patient case discussed with ED provider and reviewed and discussed with PETE including E&M. Providers/Chief Complaint 2 Admitting Physician: Dr. Bo Primary Care Provider: Yu Lee APN Chief Complaint: Nose Bleed\Heart Fluttering History of Present Illness Ernie Plasencia is a 60 year old male w/ pmhx of DM2, KRYSTIAN, microcytic anemia, hyperlipidemia, hypertension, NSTEMI, HFrEF and recurrent A-fib with RVR on chronic anticoagulation of Eliquis. Patient presents today with c/o of palpitations. Patient reports he woke up this morning with palpitations and associated signs and symptoms of chest pressure and mild nausea. He reports his heart rate was 151 when waking up and he came straight to the emergency room. He denies missing any doses of medications, fevers, headache, vomiting, diaphoresis, changes in urinary and bowel habits, recent medication changes. Patient to be admitted under inpatient status with hospitalist services and cardiology consultation services for further medical management and care. While in ED a CBC, CMP, ABG, PT/INR, troponin series was obtained, reviewed, and results as follows: WBC 17.3, Neut 11.68, [place] 2.2, RBC 2.41, Hgb 7.8, HCT 25.2, MCV 104.6, RDW 17.6, Plt 453, MPV 11.3. Na 141, K 4.4, Osmo 301. Medical Record Specialist 1.7, BUN 36, GFR 41.6, alk phos 89, bilirubin 1.6. pH 7.39, CO2 34.7, pO2 82.7, HCO3 21.0, base excess -3.5. PT 15.30, INR 1.13. Baseline troponin 47, 2-hour troponin 48.27, delta troponin T 1.27. Patient received following medications while in ED: Labetalol 10 mg IVP, 1L NS bolus, amiodarone 150 mg bolus and subsequently started on amiodarone drip. Review of Systems 2 General: Reports: 10 or more systems reviewed and unremarkable except in HPI and below Medications/Allergies Home Medications ?Medication ?Instructions ?Recorded ?Confirmed ?Last Taken ?Type apixaban 5 mg tablet (Eliquis) 5 mg PO BID #180 tabs 1 08/14/24 08/03/25 08/02/25 Rx B-complex with vitamin C 1 cap PO DAILY 06/15/25 12/08/2807/31/25 History benfotiamine 150 mg capsule 150 mg PO BID 06/15/2507/31/25 History clonidine HCl 0.1 mg tablet 0.1 mg PO DAILY PRN hypert ension 06/25/25 08/03/25 07/15/25 Rx #20 tabs losartan 25 mg tablet 25 mg PO QPM 06/29/2507/30/25 History hydralazine 25 mg tablet 25 mg PO TID #90 tabs 08/03/25 07/31/25 Rx metoprolol succinate 100 mg 100 mg PO DAILY #30 ea Unknown Rx capsule sprinkle, ext. release 24 hr Allergies Allergy/AdvReac Type Severity Reaction Status Date / Time cashew nut Allergy Intermediate ALGY-Rash Verified 08/02/25 09:53 pistachio nut Allergy Intermediate ALGY-Rash Verified 08/02/25 09:53 Calcium Channel Blocking Allergy Unknown Verified 08/02/25 09:53 Agent Dilt PFSH Acute 2 PFSH: Medical History (Updated 08/03/25 @ 11:04 by Zenaida Chery NP) NSTEMI (non-ST elevated myocardial infarction) Mass of right kidney Noncompliance Acute hypercapnic respiratory failure Obstructive sleep apnea Attention deficit disorder Type 2 diabetes mellitus Sepsis Erectile disorder due to medical condition in male Cardiac left ventricular ejection fraction greater than or equal to 40 percent Actinic keratosis Seborrheic keratosis Pyruvate kinase (PK) deficiency anemia On continuous oral anticoagulation Recurrent cerebrovascular accidents (CVAs) Paroxysmal atrial fibrillation with rapid ventricular response Atrial flutter Acute kidney injury Macrocytic anemia Leukocytosis Febrile Leg pain, left Tick bite Basilar artery stenosis Vertebrobasilar ischemia Hyperlipidemia Gout Hx of ischemic vertebrobasilar artery brainstem stroke (2012) Hypertension Surgical History Post-splenectomy History of colonoscopy (2014) History of bone marrow biopsy (01/07/14) Bone marrow aspiration and biopsy at [facility] H/O knee surgery Left knee cap repair - JAVON Taylor Dr. 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 Daughter Anesthesia complication Mother Cancer Lung Other Diabetes Hyperlipidemia Hypertension Stroke Denies family history of CAD (coronary artery disease) Clotting disorder Dementia Psychiatric illness Chronic kidney disease (CKD) Suicide Bleeding disorder Lung disease Social History Smoking and tobacco/nicotine status: never used tobacco/nicotine Alcohol intake: never Substance/Drug Use: never Additional social history: Patient wants full code as discussed today with Boogie Griffith MD on 04/30/2025. His next of kin is daughter Daija. 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 He also helps his own kids running errands etc. they are ages 37, 35 and 27. He states he is not as active after his stroke service: Yes Current occupation: [employer] Vitals/I&O/Wt Last Vital Signs Temp 98.4 F 08/03/25 05:22 Pulse 124 H 08/03/25 07:04 Resp 12 08/03/25 06:56 BP 135/87 08/03/25 07:04 Pulse Ox 94 08/03/25 07:04 O2 Del Method Room Air 08/03/25 06:56 08/02/25 08/03/25 08/03/25 22:59 06:59 14:59 Intake Total 100 / 100 Output Total 600 / 600 Balance -500 / -500 Weight last 48 hrs Weight 104.326 kg Physical Exam 2 Narrative: General: A&Ox4, denies chest pain currently-no apparent distress HEENT: Normo-cephalic, atraumatic, grossly unremarkable exam Cardio: Afib RVR, normal S1-S2 w/o any murmurs, rubs, or gallops and JVD normal Respiratory: Clear breathing on auscultation w/o any wheezes, stridor, rhonchi GI: Abd soft, non-tender, non-distended, normo-active bowel sounds present Neuro: Moves all extremities, no sensory deficits, Normal speech Behavior: Appropriate and cooperative Extremities: Adequate palpable pulses. No clubbing, cyanosis or edema, Full ROM Data 08/03/25 05:30 08/03/25 05:30 Other Labs: 08/03:EK: A-fib with RVR, no ST changes, QRS 94, QTc 428, HR 132 08/03:CXR: Reviewed and results as follows: No acute findings. A&P Assessment and plan 1. Atrial fibrillation with RVR: ? 08/03:EK: A-fib with RVR, no ST changes, QRS 94, QTc 428, HR 132 ? Cardiac enzymes: Baseline troponin 47, 2-hour troponin 48.27, delta troponin T 1.27 ? Echo reviewed from 04/28 and results as followed: Moderately decreased left ventricular systolic function. Left ventricular ejection fraction is estimated at 40 %. Global left ventricular hypokinesis. Grade II/IV diastolic dysfunction, moderately elevated filling pressures. - Keep electrolytes replaced: K, Mag ? PK deficiency anemia-continue home medications - History of KRYSTIAN, patient reports using CPAP at night routinely even with travel. ? Cardiology consulted- Airam Tompkins NP. Recommendations and expertise appreciated. ? CHADS VASc score: 4 points, patient on Eliquis 5 mg. - Amiodarone 150 mg bolus given ED and then subsequently started on amiodarone drip- continue. - Continue home medication Eliquis 5 mg, metoprolol 50 mg p.o. daily 2. Type 2 diabetes mellitus: - Blood glucose monitoring, ACHS - Moderate regimen sliding scale - Hypoglycemic protocol - Cardiac Carb consistent diet 3. Hypertension: - Vital signs as per protocol - Continue home medication hydralazine 25 mg p.o. 3 times daily, losartan 25 mg p.o. daily, clonidine 0.1 mg p.o. daily. as needed 4. Pyruvate kinase (PK) deficiency anemia: - Continue home medication Benfotiamine 150mg PO BID, and B complex with vitamin C 5. Obstructive sleep apnea: - Continue CPAP use PDMP PDMP Reviewed: Not Reviewed Attestations 2 Medical Necessity Statement*: Admitted under inpatient status. Given complexity of patient's presentation, PAF w/ possible cardioversion-cardiology consulted, co-morbid conditions, and required intensity of treatment, a hospitalization exceeding two midnights is anticipated. and High Time for a total of 75 minutes, includes reviewing past or interval history, examining/interviewing patient, placing orders, counseling patient/family/other support, updating patient/family/other support, discussing plan of care with staff, communicating with other healthcare providers, documenting encounter and coordinating care Diagnoses Atrial fibrillation with RVR I48.91 Type 2 diabetes mellitus E11.9 Hypertension I10 Pyruvate kinase (PK) deficiency anemia D55.21 Obstructive sleep apnea G47.33
--- NOTE | 2025-08-03 08:08 | PM.HP ---
Providers/Chief Complaint Primary Care Provider: Yu Lee APN Chief Complaint: Nose Bleed\Heart Fluttering History of Present Illness Ernie Plasencia is a 60 year old male Medications/Allergies Home Medications ?Medication ?Instructions ?Recorded ?Confirmed ?Last Taken ?Type metoprolol succinate 50 mg 50 mg PO DAILY #90 tabs 06/03/25 08/02/25 07/30/25 Rx tablet,extended release 24 hr apixaban 5 mg tablet (Eliquis) 5 mg PO BID #180 tabs 06/14/25 08/02/25 07/31/25 Rx B-complex with vitamin C 1 cap PO DAILY 06/15/25 08/02/25 07/31/25 History benfotiamine 150 mg capsule 150 mg PO BID 06/15/25 08/02/25 07/31/25 History clonidine HCl 0.1 mg tablet 0.1 mg PO DAILY PRN hypertension 06/25/25 08/02/25 07/15/25 Rx #20 tabs losartan 25 mg tablet 25 mg PO QPM 06/29/25 08/02/25 07/30/25 History furosemide 40 mg tablet 40 mg PO DAILY PRN Weight Gain 07/15/25 08/02/25 Unknown History hydralazine 25 mg tablet 25 mg PO TID #90 tabs 07/15/25 08/02/25 07/31/25 Rx Allergies Allergy/AdvReac Type Severity Reaction Status Date / Time cashew nut Allergy Intermediate ALGY-Rash Verified 08/02/25 09:53 pistachio nut Allergy Intermediate ALGY-Rash Verified 08/02/25 09:53 Calcium Channel Blocking Allergy Unknown Verified 08/02/25 09:53 Agent Dilt PFSH Acute PFSH: Medical History (Updated 08/03/25 @ 06:40 by Lynette Hood MD) NSTEMI (non-ST elevated myocardial infarction) Mass of right kidney Noncompliance Acute hypercapnic respiratory failure Obstructive sleep apnea Attention deficit disorder Type 2 diabetes mellitus Sepsis Erectile disorder due to medical condition in male Cardiac left ventricular ejection fraction greater than or equal to 40 percent Actinic keratosis Seborrheic keratosis Pyruvate kinase (PK) deficiency anemia On continuous oral anticoagulation Recurrent cerebrovascular accidents (CVAs) Paroxysmal atrial fibrillation with rapid ventricular response Atrial flutter Acute kidney injury Macrocytic anemia Leukocytosis Febrile Leg pain, left Tick bite Basilar artery stenosis Vertebrobasilar ischemia Hyperlipidemia Gout Hx of ischemic vertebrobasilar artery brainstem stroke (2012) Hypertension Surgical History Post-splenectomy History of colonoscopy (2014) History of bone marrow biopsy (01/07/14) Bone marrow aspiration and biopsy at [facility] H/O knee surgery Left knee cap repair - JAVON Taylor - Dr. 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 Daughter Anesthesia complication Mother Cancer Lung Other Diabetes Hyperlipidemia Hypertension Stroke Denies family history of CAD (coronary artery disease) Clotting disorder Dementia Psychiatric illness Chronic kidney disease (CKD) Suicide Bleeding disorder Lung disease Social History Smoking and tobacco/nicotine status: never used tobacco/nicotine Alcohol intake: never Substance/Drug Use: never Additional social history: Patient wants full code as discussed today with Boogie Griffith MD on 04/30/2025. His next of kin is daughter Daija. 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 He also helps his own kids running errands etc. they are ages 37, 35 and 27. He states he is not as active after his stroke service: Yes Current occupation: [employer] Vitals/I&O/Wt Last Vital Signs Temp 98.4 F 08/03/25 05:22 Pulse 124 H 08/03/25 07:04 Resp 12 08/03/25 06:56 BP 135/87 08/03/25 07:04 Pulse Ox 94 08/03/25 07:04 O2 Del Method Room Air 08/03/25 06:56 08/02/25 08/03/25 08/03/25 22:59 06:59 14:59 Intake Total 100 / 100 Output Total 600 / 600 Balance -500 / -500 Weight last 48 hrs Weight 104.326 kg Data 08/03/25 05:30 08/03/25 05:30 A&P PDMP PDMP Reviewed: Not Reviewed Coding Level of Care Code Acute Code for Chg Elías
[2025-08-03 10:20] LABS: Magnesium 1.8 mg/dL (1.7-2.3)
== END 2025-08-03 10:58 | disposition home or self-care (01) ==
LOC: ER 06:40 → ER IP 09:54
PROVIDERS: Internal Medicine; Emergency Provider Emergency Medicine; PCP Nurse Practitioner Family
DX: I48.20 Chronic atrial fibrillation, unspecified (principal); E78.5 Hyperlipidemia, unspecified; I10 Essential (primary) hypertension; E11.9 Type 2 diabetes mellitus without complications
CPT/HCPCS: 36600; 71045; 80051; 80053; 82330; 82805; 83735; 84484; 85025; 85610; 93005; 96365; 96375; 99285; J0282; J0283; J3490; J7030